=== PATIENT | female | born 1940 | race Caucasian/White ===

== ENCOUNTER → 2018-03-15 15:07 | Outpatient (BNVA) | payer MEDICARE, BC, SELFPAY | PROVIDERS: PCP Family Medicine; Visit Provider Nurse Practitioner Family | DX: I25.10 Atherosclerotic heart disease of native coronary artery without angina pectoris (principal); I25.2 Old myocardial infarction; Z79.01 Long term (current) use of anticoagulants; I10 Essential (primary) hypertension; I49.5 Sick sinus syndrome; Z45.018 Encounter for adjustment and management of other part of cardiac pacemaker; E11.9 Type 2 diabetes mellitus without complications; I48.0 Paroxysmal atrial fibrillation | CPT/HCPCS: 93288; 99213 ==

== ENCOUNTER 2018-03-17 12:40 | Outpatient (CLI) | payer MEDICARE, BC, OTHER, SELFPAY ==
--- NOTE | 2018-03-17 12:42 | DI.RAD_ITS ---
SYMPTOMS/DIAGNOSIS: NEW MID BACK PAIN, LOCATED LOW T SPINE LT THORACIC SPINE: Comparison is made with chest x-ray dated [id number]. There is slight compression of the T 11 vertebral body which does not appear changed when compared with the previous chest x-ray and also appears stable when compared with a chest CT dated [id number]. No new compression fractures are seen. There are minimal endplate osteophytes. A pacemaker and sternal wires are noted. The visualized portions of the lungs appear clear. IMPRESSION: Stable minimal compression fracture of the superior endplate of T 11.
== END 2018-03-17 13:00 ==
PROVIDERS: PCP Family Medicine; Visit Provider Family Medicine
DX: M54.6 Pain in thoracic spine (principal); M48.54XD Collapsed vertebra, not elsewhere classified, thoracic region, subsequent encounter for fracture with routine healing; M25.78 Osteophyte, vertebrae
CPT/HCPCS: 72072

== ENCOUNTER 2018-04-14 15:04 | Outpatient (REF) | payer MEDICARE, BC, SELFPAY ==
[2018-04-19 00:48] LABS: O-desmethyltramadol 9410 ng/mL (Cutoff:25); Tramadol 4271 ng/mL (Cutoff:25)
== END 2018-04-14 15:24 ==
LOC: LBN 15:04
PROVIDERS: PCP Family Medicine; Visit Provider Nurse Practitioner Family
DX: N39.0 Urinary tract infection, site not specified (principal); R82.5 Elevated urine levels of drugs, medicaments and biological substances
CPT/HCPCS: 80373; 87077; 87086; 87186

== ENCOUNTER 2018-05-24 22:48 | Observation (INO) | payer MEDICARE, BC, SELFPAY ==
[2018-05-24] VITALS (7 sets, daily range): BP systolic 126–222; BP diastolic 76–99; PULSE 75–94; RESP 13–21; TEMP 36.8; O2SAT 99–100
--- NOTE | 2018-05-24 22:56 | W.ED.GENAD ---
Discharge Plan Disposition Patient Disposition: [facility] INPATIENT Condition: Good Discharge Details Chief Complaint: RespSymp Clinical Impression: Anxiety, Chest pain Reason For Visit: CHEST PAIN Admit Date/Time: 05/25/18 02:51 Admit Provider: Cristofer Rosenberg Attending Provider: Cristofer Rosenberg Primary Care Provider: Familia Mazariegos ED Provider: Ronna Bello Discharge Data Discharge Date/Time-TO BE ENTERED AT DEPARTURE: 05/25/18 03:36 Medical Decision Making <EARLE Chamorro - Last Filed: 05/25/18 16:12> Patient is a 78-year-old female, brought in via EMS, with chief complaint of chest discomfort. Patient has history of atrial fibrillation, depression, insulin-dependent diabetes, hypertension, hyperlipidemia, essential tremor, WI, stage III CK, tachybradycardia syndrome, GERD, nonalcoholic liver disease, atherosclerosis, neuropathy. Patient is status post CABG, [place], hysterectomy. Patient has implanted pacemaker. She reports the past 3 days she has had upper respiratory symptoms including cough and sore throat. Reports her was recently ill with similar symptoms. She reports that recently she began developing pleuritic chest discomfort, pain particular with inspiration and cough. States taht this pain is different than when she has had cardiac events historically. Is currently endorsing SOB. She is 100% on RA, HR in the 80s. She reports she has had low grade fever at home, currently afebrile. Denies back pain. Denies substernal CP. BP elevated 180s/80s. Patient is anticoagulated on Eliquis. Typically takes metoprolol, losartan but reports that she did not take any of her medications this morning as she awoke feeling ill. typically helps with her daily medication management. Patient is not tachycardic, she is not hypoxic. No calf tenderness, she is anticoagulated. Have very low suspicion for PE at this time, do not feel that testing for this is appropriate at this time. On exam, patient does appear slightly shaky which she reports is typical and associates with her anxiety. Her lungs are clear on exam, she is in NSR at this time. No LE edema. Patient is prescribed Gabapentin which she takes BID for her tremor and chronic pain. Patient is requesting her typical pain medication for her chronic back pain. States she also takes Tramadol nightly. Will give her her nightly dose of Tramadol, Eliquiis and Gabapentin. As she has her Eliquis and Gabapentin here, we will give her her own medication. Patient has had multiple UTIs recently, will obtian UA. EKG reviewed by Dr. Durham, patient is currently in NSR. T wave depressions are noted but appear unchanged from previous. CXR reviewed by radiologist. They advised lungs are unremarkable with no consolidation, no pleural effusion. No pneumothorax. No cardiomegaly. Median sternotomy and ICD placement noted. Overall, they advise no acute findings. Oral temperature shows low grade fever of 99*F, nursing staff concerned that patient feels warm. Will give oral Tylenol. Patient's daughter is now present. Discussed lab results with the patient and her family. Daughter and patient feel that much of this was anxiety driven. She typically takes Lorazepam for her anxiety PRN. They report her is also ill with similar symptoms. She began having lateral chest wall pain with inspiration and cough this evening. With her cardiac history, patient reports her anxiety greatly spiked, she assessed her BP and noted it to be quite elevated. At this time, BP is 126/79. She appears much more calm and reports that her symptoms have resolved. At this point, she reprts that hte pain she experienced is not like the cardiac pain she has experienced historically. However, she is also describing an impending sense of doom from earlier tonight when she first noted the pain. While this pain does sound to be pleuritic and she is endorsing other symptoms of a URI, I feel that 3 hour Troponin is appropriate, especially given the patient's history. At the end of my shift, repeat Troponin is pending, care was transitioned to Dr. Durham. <Michael Durham DO - Last Filed: 05/25/18 02:50> Case was signed out to me by my colleague Ronna Carvajal. We are pending a second troponin. Repeat troponin is increased from prior troponin. New troponin is still within normal limits but has increased towards the upper limits of normal. I did go and reassess the patient myself, she does state that she has no chest pain whatsoever right now but she does feel slightly short of breath. She states that her current pain that she had earlier today may have been exertional, and additionally she feels that it was slightly different in nature from her normal anxiety related chest pain. Her CABG was over 20 years ago, she denies any recent stents, and her daughter who is at bedside also denies any stents. It is unknown as to when her last stress test was but they feel that he was at least 2-3 years ago. Because of the atypical nature of the patient's symptoms, and the increasing troponin I feel that it is appropriate for admission, serial troponins, and reevaluation. We will contact the hospitalist and discussed the case with them. I discussed the case with Dr. Briscoe, he agrees with the assessment and plan. [facility]. I have extensively reviewed the treatment plan with the patient. I have addressed all patient concerns at this time. I have also discussed the plan with the admitting physician and they agree with the current assessment and plan and have agreed to assume responsibility for the patient. All parties demonstrate verbal understanding and agreement with our assessment and plan at this time. ECG Data Interpretation: EKG 22: 50 Rate 84, intervals normal, his rhythm, no ST elevations, Q waves in lead III. Inverted T wave in V4 V5 and V6, however these findings are consistent with prior EKG from 08/08/17 HPI <EARLE Chamorro - Last Filed: 05/25/18 16:12> General Mode of arrival: EMS. Date/Time Provider Initiated Documentation: 05/24/18 22:54. Limitations to Documentation: no limitations. Information obtained by: patient. History of Present Illness 78 year old F presents to the emergency department with the chief complaint of chest pain, cough, described as moderate, Quality is described as aching (with inspiration), and is localized to the chest. Patient reports no radiation. Patient started experiencing this day(s) (3) and it has been constant. Immobilization improves symptom(s), Patient notes chest pain, cough, fever/chills and shortness of breath; denies headaches, loss of appetite, nausea/vomiting, rash and syncope. Patient did receive the following treatments prior to arrival, none Related Data Home Medications Medication Instructions Recorded Confirmed fexofenadine [Aller-ease] 90 mg PO DAILY PRN 08/25/15 05/25/18 acetaminophen [Tylenol] 650 mg PO Q4H PRN PRN #0 tab 01/15/16 05/25/18 cyanocobalamin (vitamin B-12) 1,000 mcg PO DAILY #90 tab-cap 02/10/16 05/25/18 cholecalciferol (vitamin D3) 1,000 unit PO BID cap 10/05/16 05/25/18 [Vitamin D3] magnesium oxide 400 mg PO DAILY #250 tab-cap 11/09/16 05/25/18 nitroglycerin [Nitrostat] 0.4 mg SUBLINGUAL Q5 MIN PRN X3 11/09/16 05/24/18 PRN #25 tab.sl insulin aspart U-100 100 unit/mL 21 unit SUB-Q BID #2 ml 07/30/17 05/25/18 subcutaneous pen lamotrigine [Lamictal] 100 mg PO BID #180 tab-cap 07/30/17 05/25/18 metoprolol succinate 150 mg PO DAILY #135 tab 07/30/17 05/25/18 apixaban [Eliquis] 5 mg PO BID 14 Days #28 tab 08/06/17 05/25/18 aspirin [Aspirin Low-Strength] 81 mg PO DAILY 08/08/17 05/25/18 lancets [Freestyle Lancets] #150 ea 11/19/17 05/12/18 trazodone 50 mg PO HS 10 Days #10 tab-cap 03/04/18 05/25/18 lorazepam 0.5 mg tablet 0.5 mg PO BID #56 tab MDD 1 mg 03/17/18 05/25/18 gabapentin 300 mg capsule 300 mg PO as directed #15 cap MDD 03/28/18 05/25/18 900 losartan 25 mg tablet 25 mg PO BID 90 Days #180 tab-cap 03/31/18 05/25/18 blood-glucose meter kit #1 each 04/13/18 05/12/18 lidocaine 5 % topical patch 1 patch TP DAILY #15 each 04/14/18 05/25/18 blood sugar diagnostic strips #120 strip 05/03/18 05/12/18 insulin detemir (U-100) 100 21 unit SUBCUT BID #4 ml 05/03/18 05/25/18 unit/mL (3 mL) subcutaneous pen pen needle, diabetic 31 gauge x #100 ndl 05/03/18 05/12/1811/24 tramadol 50 mg tablet 50 mg PO BID PRN #60 tab 05/12/18 05/24/18 Previous Rx's Medication Instructions Recorded acetaminophen [Tylenol] 650 mg PO Q4H PRN PRN #0 tab 01/15/16 insulin aspart U-100 100 unit/mL 21 unit SUB-Q BID #2 ml 07/30/17 subcutaneous pen lamotrigine [Lamictal] 100 mg PO BID #180 tab-cap 07/30/17 metoprolol succinate 150 mg PO DAILY #135 tab 07/30/17 apixaban [Eliquis] 5 mg PO BID 14 Days #28 tab 08/06/17 lancets [Freestyle Lancets] #150 ea 11/19/17 trazodone 50 mg PO HS 10 Days #10 tab-cap 03/04/18 lorazepam 0.5 mg tablet 0.5 mg PO BID #56 tab MDD 1 mg 03/17/18 gabapentin 300 mg capsule 300 mg PO as directed #15 cap MDD 03/28/18 900 losartan 25 mg tablet 25 mg PO BID 90 Days #180 tab-cap 03/31/18 blood-glucose meter kit #1 each 04/13/18 lidocaine 5 % topical patch 1 patch TP DAILY #15 each 04/14/18 blood sugar diagnostic strips #120 strip 05/03/18 insulin detemir (U-100) 100 21 unit SUBCUT BID #4 ml 05/03/18 unit/mL (3 mL) subcutaneous pen pen needle, diabetic 31 gauge x #100 ndl 05/03/1811/24 tramadol 50 mg tablet 50 mg PO BID PRN #60 tab 05/12/18 Allergies Allergy/AdvReac Type Severity Reaction Status Date / Time nifedipine Allergy Mild Hives Verified 05/25/18 03:26 amiodarone AdvReac Severe tremor Verified 05/25/18 03:26 oxycodone AdvReac Severe heavy Verified 05/25/18 03:26 sedation amoxicillin AdvReac Intermediate sore Verified 05/25/18 03:26 burning mouth Anesthetics - Amide Type AdvReac Intermediate anxious Verified 05/25/18 03:26 diazepam AdvReac Intermediate Agitation Verified 05/25/18 03:26 indomethacin AdvReac Intermediate headache, Verified 05/25/18 03:26 flush metformin AdvReac Intermediate Diarrhea Verified 05/25/18 03:26 General Stated Complaint: RespSymp ANASTACIA: 3 Review of Systems <Ronna Piburn, PA - Last Filed: 05/25/18 16:12> Constitutional Reports as per HPI, Denies chills, Denies fever(s) and Denies headache(s) Eyes Denies eye discharge ENT Reports dysphagia, Denies vertigo, Denies otalgia, Denies facial pain, Denies headache(s), Denies sinus pain, Denies sinus pressure, Reports sore throat and Denies throat swelling Cardiovascular Reports as per HPI, Reports chest pain (diffuse discomfort with inspiration), Denies syncope, Denies palpitations and Reports dyspnea Respiratory Reports as per HPI, Reports chest congestion, Reports cough, Denies hemoptysis, Reports dyspnea, Denies stridor and Denies wheezing Gastrointestinal Reports as per HPI, Denies abdominal pain, Reports dysphagia, Denies nausea and Denies vomiting Genitourinary Denies system reviewed and no additional complaints, except as docu (has had multiple UTIs recently, denies dysurea, increased frequency or urgency at this time), Denies urinary frequency, Denies flank pain and Denies urinary incontinence Musculoskeletal Reports back pain (endorses chronic back pain, states this is unchanged) Integumentary/Breasts Denies rash Neurologic Reports as per HPI, Denies vertigo, Denies syncope and Denies headache(s) Endocrine Denies palpitations Allergic/Immunologic Denies throat swelling and Denies wheezing Exam <EARLE Chamorro - Last Filed: 05/25/18 16:12> Const General: cooperative, healthy appearing, no acute distress, well developed and well groomed Nutritional Appearance: average body habitus and well nourished Orientation: alert and awake [facility] Head: normal to inspection, normocephalic and atraumatic Ears: hearing grossly normal bilaterally, external ears normal and TM's normal bilaterally General nose exam: external nose normal Face and sinus: normal facial exam, sinuses nontender and face symmetric Mouth: oral mucosae normal, lip normal, tongue normal, oropharynx normal, mucous membranes dry (patietn appears slightly dry on exam), no muffled voice and no trismus Throat: posterior oropharynx abnormal (posterior oropharynx is mildly erythematous, no swelling, exudate), tonsils normal and uvula midline Eyes General: appearance normal, both eyes and all related structures Neck Neck: normal visual inspection, full ROM, no lymphadenopathy, no meningeal signs, trachea midline and supple Resp Effort & Inspection: normal respiratory effort, able to speak in complete sentences and no respiratory distress Auscultation: clear to auscultation bilaterally, no rales, no rhonchi and no wheezes Cardio Rate: regular rate Rhythm: regular rhythm Heart Sounds: S1 normal and S2 normal GI Inspection: normal to inspection Palpation: soft, no hepatosplenomegaly, no guarding, not rigid and nontender Auscultation: normal bowel sounds Back/Spine/Pelvis Back: no CVA tenderness Skin General skin exam: no rashes or lesions noted Trauma: no lacerations or abrasions Neuro General: alert, awake and oriented x3 Cognition: normal cognition Speech: speech normal Gait: gait abnormal (patietn brought in via EMS, have not seen her ambulate) Extrem General: no pedal edema, no calf tenderness and normal gait Psych Appearance: grossly normal and well kempt Mental Status: mental status grossly normal Speech and Movement: speech and movement normal Course <EARLE Chamorro - Last Filed: 05/25/18 16:12> Vital Signs Temperature 36.8 C 05/24/18 22:50 Pulse 94 H 05/24/18 22:50 Respiratory Rate 13 05/24/18 22:50 Blood Pressure 222/99 H 05/24/18 22:50 Pulse Oximetry 100 05/24/18 22:50 Temperature 36.8 C 05/24/18 22:50 Temperature Source Skin 05/24/18 22:50 Pulse 94 H 05/24/18 22:50 Respiratory Rate 13 05/24/18 22:50 Blood Pressure 222/99 H 05/24/18 22:50 Blood Pressure Position Sitting 05/24/18 22:50 Pulse Oximetry 100 05/24/18 22:50 Oxygen Delivery Method Room Air 05/24/18 22:50 Oxygen Flow Rate 0 05/24/18 22:50
--- NOTE | 2018-05-24 23:01 | ED.GENADUL_ITS ---
Discharge Plan Disposition Patient Disposition: [facility] INPATIENT Condition: Good Discharge Details Chief Complaint: RespSymp Clinical Impression: Anxiety, Chest pain Reason For Visit: CHEST PAIN Admit Date/Time: 05/25/18 02:51 Admit Provider: Cristofer Rosenberg Attending Provider: Cristofer Rosenberg Primary Care Provider: Familia Mazariegos ED Provider: Ronna Bello Discharge Data Discharge Date/Time-TO BE ENTERED AT DEPARTURE: 05/25/18 03:36 Medical Decision Making <EARLE Chamorro - Last Filed: 05/25/18 16:12> Patient is a 78-year-old female, brought in via EMS, with chief complaint of chest discomfort. Patient has history of atrial fibrillation, depression, insulin-dependent diabetes, hypertension, hyperlipidemia, essential tremor, NE, stage III CK, tachybradycardia syndrome, GERD, nonalcoholic liver disease, atherosclerosis, neuropathy. Patient is status post CABG, [place], hysterectomy. Patient has implanted pacemaker. She reports the past 3 days she has had upper respiratory symptoms including cough and sore throat. Reports her was recently ill with similar symptoms. She reports that recently she began developing pleuritic chest discomfort, pain particular with inspiration and cough. States taht this pain is different than when she has had cardiac events historically. Is currently endorsing SOB. She is 100% on RA , HR in the 80s. She reports she has had low grade fever at home, currently afebrile. Denies back pain. Denies substernal CP. BP elevated 180s/80s. Patient is anticoagulated on Eliquis. Typically takes metoprolol, losartan but reports that she did not take any of her medications this morning as she awoke feeling ill. typically helps with her daily medication management. Patient is not tachycardic, she is not hypoxic. No calf tenderness, she is anticoagulated. Have very low suspicion for PE at this time, do not feel that testing for this is appropriate at this time. On exam, patient does appear slightly shaky which she reports is typical and associates with her anxiety. Her lungs are clear on exam, she is in NSR at this time. No LE edema. Patient is prescribed Gabapentin which she takes BID for her tremor and chronic pain. Patient is requesting her typical pain medication for her chronic back pain. States she also takes Tramadol nightly. Will give her her nightly dose of Tramadol, Eliquiis and Gabapentin. As she has her Eliquis and Gabapentin here, we will give her her own medication. Patient has had multiple UTIs recently, will obtian UA. EKG reviewed by Dr. Durham, patient is currently in NSR. T wave depressions are noted but appear unchanged from previous. CXR reviewed by radiologist. They advised lungs are unremarkable with no consolidation, no pleural effusion. No pneumothorax. No cardiomegaly. Median sternotomy and ICD placement noted. Overall, they advise no acute findings. Oral temperature shows low grade fever of 99*F, nursing staff concerned that patient feels warm. Will give oral Tylenol. Patient's daughter is now present. Discussed lab results with the patient and her family. Daughter and patient feel that much of this was anxiety driven. She typically takes Lorazepam for her anxiety PRN. They report her is also ill with similar symptoms. She began having lateral chest wall pain with inspiration and cough this evening. With her cardiac history, patient reports her anxiety greatly spiked, she assessed her BP and noted it to be quite elevated. At this time, BP is 126/79. She appears much more calm and reports that her symptoms have resolved. At this point, she reprts that hte pain she experienced is not like the cardiac pain she has experienced historically. However, she is also describing an impending sense of doom from earlier tonight when she first noted the pain. While this pain does sound to be pleuritic and she is endorsing other symptoms of a URI, I feel that 3 hour Troponin is appropriate, especially given the patient's history. At the end of my shift, repeat Troponin is pending, care was transitioned to Dr. Durham. <Michael Durham DO - Last Filed: 05/25/18 02:50> Case was signed out to me by my colleague Ronna Carvajal. We are pending a second troponin. Repeat troponin is increased from prior troponin. New troponin is still within normal limits but has increased towards the upper limits of normal. I did go and reassess the patient myself, she does state that she has no chest pain whatsoever right now but she does feel slightly short of breath. She states that her current pain that she had earlier today may have been exertional, and additionally she feels that it was slightly different in nature from her normal anxiety related chest pain. Her CABG was over 20 years ago, she denies any recent stents, and her daughter who is at bedside also denies any stents. It is unknown as to when her last stress test was but they feel that he was at least 2-3 years ago. Because of the atypical nature of the patient's symptoms, and the increasing troponin I feel that it is appropriate for admission, serial troponins, and reevaluation. We will contact the hospitalist and discussed the case with them. I discussed the case with Dr. Briscoe, he agrees with the assessment and plan. The patient [facility] be [facility] for [facility] troponins. I have extensively reviewed the treatment plan with the patient. I have addressed all patient concerns at this time. I have also discussed the plan with the admitting physician and they agree with the current assessment and plan and have agreed to assume responsibility for the patient. All parties demonstrate verbal understanding and agreement with our assessment and plan at this time. ECG Data Interpretation: EKG 22: 50 Rate 84, intervals normal, his rhythm, no ST elevations, Q waves in lead III. Inverted T wave in V4 V5 and V6, however these findings are consistent with prior EKG from 08/08/17 HPI <EARLE Chamorro - Last Filed: 05/25/18 16:12> General Mode of arrival: EMS . Date/Time Provider Initiated Documentation: 05/24/18 22:54 . Limitations to Documentation: no limitations . Information obtained by: patient . History of Present Illness 78 year old F presents to the emergency department with the chief complaint of chest pain, cough, described as moderate, Quality is described as aching ( with inspiration), and is localized to the chest. Patient reports no radiation. Patient started experiencing this day(s) (3) and it has been constant. Immobilization improves symptom(s), Patient notes chest pain, cough, fever/chills and shortness of breath; denies headaches, loss of appetite , nausea/vomiting, rash and syncope. Patient did receive the following treatments prior to arrival, none Related Data Home Medications Medication Instructions Recorded Confirmed fexofenadine [Aller-ease] 90 mg PO DAILY PRN 08/25/15 05/25/18 acetaminophen [Tylenol] 650 mg PO Q4H PRN PRN #0 tab 01/15/16 05/25/18 cyanocobalamin (vitamin B-12) 1,000 mcg PO DAILY #90 tab-cap 02/10/16 05/25/18 cholecalciferol (vitamin D3) 1,000 unit PO BID cap 10/05/16 05/25/18 [Vitamin D3] magnesium oxide 400 mg PO DAILY #250 tab-cap 11/09/16 05/25/18 nitroglycerin [Nitrostat] 0.4 mg SUBLINGUAL Q5 MIN PRN X3 11/09/16 05/24/18 PRN #25 tab.sl insulin aspart U-100 100 unit/mL 21 unit SUB-Q BID #2 ml 07/30/17 05/25/18 subcutaneous pen lamotrigine [Lamictal] 100 mg PO BID #180 tab-cap 07/30/17 05/25/18 metoprolol succinate 150 mg PO DAILY #135 tab 07/30/17 05/25/18 apixaban [Eliquis] 5 mg PO BID 14 Days #28 tab 08/06/17 05/25/18 aspirin [Aspirin Low-Strength] 81 mg PO DAILY 08/08/17 05/25/18 lancets [Freestyle Lancets] #150 ea 11/19/17 05/12/18 trazodone 50 mg PO HS 10 Days #10 tab-cap 03/04/18 05/25/18 lorazepam 0.5 mg tablet 0.5 mg PO BID #56 tab MDD 1 mg 03/17/18 05/25/18 gabapentin 300 mg capsule 300 mg PO as directed #15 cap MDD 03/28/18 05/25/18 900 losartan 25 mg tablet 25 mg PO BID 90 Days #180 tab-cap 03/31/18 05/25/18 blood-glucose meter kit #1 each 04/13/18 05/12/18 lidocaine 5 % topical patch 1 patch TP DAILY #15 each 04/14/18 05/25/18 blood sugar diagnostic strips #120 strip 05/03/18 05/12/18 insulin detemir (U-100) 100 21 unit SUBCUT BID #4 ml 05/03/18 05/25/18 unit/mL (3 mL) subcutaneous pen pen needle, diabetic 31 gauge x #100 ndl 05/03/18 05/12/1811/24 tramadol 50 mg tablet 50 mg PO BID PRN #60 tab 05/12/18 05/24/18 Previous Rx's Medication Instructions Recorded acetaminophen [Tylenol] 650 mg PO Q4H PRN PRN #0 tab 01/15/16 insulin aspart U-100 100 unit/mL 21 unit SUB-Q BID #2 ml 07/30/17 subcutaneous pen lamotrigine [Lamictal] 100 mg PO BID #180 tab-cap 07/30/17 metoprolol succinate 150 mg PO DAILY #135 tab 07/30/17 apixaban [Eliquis] 5 mg PO BID 14 Days #28 tab 08/06/17 lancets [Freestyle Lancets] #150 ea 11/19/17 trazodone 50 mg PO HS 10 Days #10 tab-cap 03/04/18 lorazepam 0.5 mg tablet 0.5 mg PO BID #56 tab MDD 1 mg 03/17/18 gabapentin 300 mg capsule 300 mg PO as directed #15 cap MDD 03/28/18 900 losartan 25 mg tablet 25 mg PO BID 90 Days #180 tab-cap 03/31/18 blood-glucose meter kit #1 each 04/13/18 lidocaine 5 % topical patch 1 patch TP DAILY #15 each 04/14/18 blood sugar diagnostic strips #120 strip 05/03/18 insulin detemir (U-100) 100 21 unit SUBCUT BID #4 ml 05/03/18 unit/mL (3 mL) subcutaneous pen pen needle, diabetic 31 gauge x #100 ndl 05/03/1811/24 tramadol 50 mg tablet 50 mg PO BID PRN #60 tab 05/12/18 Allergies Allergy/AdvReac Type Severity Reaction Status Date / Time nifedipine Allergy Mild Hives Verified 05/25/18 03:26 amiodarone AdvReac Severe tremor Verified 05/25/18 03:26 oxycodone AdvReac Severe heavy Verified 05/25/18 03:26 sedation amoxicillin AdvReac Intermediate sore Verified 05/25/18 03:26 burning mouth Anesthetics - Amide Type AdvReac Intermediate anxious Verified 05/25/18 03:26 diazepam AdvReac Intermediate Agitation Verified 05/25/18 03:26 indomethacin AdvReac Intermediate headache, Verified 05/25/18 03:26 flush metformin AdvReac Intermediate Diarrhea Verified 05/25/18 03:26 General Stated Complaint: RespSymp ANASTACIA: 3 Review of Systems <Ronna Piburn, PA - Last Filed: 05/25/18 16:12> Constitutional Reports as per HPI, Denies chills, Denies fever(s) and Denies headache(s) Eyes Denies eye discharge ENT Reports dysphagia, Denies vertigo, Denies otalgia, Denies facial pain, Denies headache(s), Denies sinus pain, Denies sinus pressure, Reports sore throat and Denies throat swelling Cardiovascular Reports as per HPI, Reports chest pain (diffuse discomfort with inspiration), Denies syncope, Denies palpitations and Reports dyspnea Respiratory Reports as per HPI, Reports chest congestion, Reports cough, Denies hemoptysis, Reports dyspnea, Denies stridor and Denies wheezing Gastrointestinal Reports as per HPI, Denies abdominal pain, Reports dysphagia, Denies nausea and Denies vomiting Genitourinary Denies system reviewed and no additional complaints, except as docu (has had multiple UTIs recently, denies dysurea, increased frequency or urgency at this time), Denies urinary frequency, Denies flank pain and Denies urinary incontinence Musculoskeletal Reports back pain (endorses chronic back pain, states this is unchanged) Integumentary/Breasts Denies rash Neurologic Reports as per HPI, Denies vertigo, Denies syncope and Denies headache(s) Endocrine Denies palpitations Allergic/Immunologic Denies throat swelling and Denies wheezing Exam <EARLE Chamorro - Last Filed: 05/25/18 16:12> Const General: cooperative, healthy appearing, no acute distress, well developed and well groomed Nutritional Appearance: average body habitus and well nourished Orientation: alert and awake [facility] Head: normal to inspection, normocephalic and atraumatic Ears: hearing grossly normal bilaterally, external ears normal and TM's normal bilaterally General nose exam: external nose normal Face and sinus: normal facial exam, sinuses nontender and face symmetric Mouth: oral mucosae normal, lip normal, tongue normal, oropharynx normal, mucous membranes dry (patietn appears slightly dry on exam), no muffled voice and no trismus Throat: posterior oropharynx abnormal (posterior oropharynx is mildly erythematous, no swelling, exudate), tonsils normal and uvula midline Eyes General: appearance normal, both eyes and all related structures Neck Neck: normal visual inspection, full ROM, no lymphadenopathy, no meningeal signs , trachea midline and supple Resp Effort & Inspection: normal respiratory effort, able to speak in complete sentences and no respiratory distress Auscultation: clear to auscultation bilaterally, no rales, no rhonchi and no wheezes Cardio Rate: regular rate Rhythm: regular rhythm Heart Sounds: S1 normal and S2 normal GI Inspection: normal to inspection Palpation: soft, no hepatosplenomegaly, no guarding, not rigid and nontender Auscultation: normal bowel sounds Back/Spine/Pelvis Back: no CVA tenderness Skin General skin exam: no rashes or lesions noted Trauma: no lacerations or abrasions Neuro General: alert, awake and oriented x3 Cognition: normal cognition Speech: speech normal Gait: gait abnormal (patietn brought in via EMS, have not seen her ambulate) Extrem General: no pedal edema, no calf tenderness and normal gait Psych Appearance: grossly normal and well kempt Mental Status: mental status grossly normal Speech and Movement: speech and movement normal Course <EARLE Chamorro - Last Filed: 05/25/18 16:12> Vital Signs Temperature 36.8 C 05/24/18 22:50 Pulse 94 H 05/24/18 22:50 Respiratory Rate 13 05/24/18 22:50 Blood Pressure 222/99 H 05/24/18 22:50 Pulse Oximetry 100 05/24/18 22:50 Temperature 36.8 C 05/24/18 22:50 Temperature Source Skin 05/24/18 22:50 Pulse 94 H 05/24/18 22:50 Respiratory Rate 13 05/24/18 22:50 Blood Pressure 222/99 H 05/24/18 22:50 Blood Pressure Position Sitting 05/24/18 22:50 Pulse Oximetry 100 05/24/18 22:50 Oxygen Delivery Method Room Air 05/24/18 22:50 Oxygen Flow Rate 0 05/24/18 22:50
[2018-05-24 23:15] LABS: Abs Immature Grans 0.01 k/cumm (0.0-0.09); Absolute Basophil Count 0.01 k/cumm (0.0-0.2); Absolute Eosinophil Count 0.06 k/cumm (0.0-0.7); Absolute Lymphocyte Count 1.52 k/cumm (1.2-3.4); Absolute Monocyte Count 0.77 k/cumm (0.11-0.7); Absolute Neutrophil Count 5.94 k/cumm (1.2-6.7); Basophils % 0.1; Eosinophils % 0.7; HCT 39.1 % (36.0-46.0); HGB 13.4 g/dL (12.0-15.5); Immature Grans % 0.1; Lymphocytes % 18.3; Mean Corp. HGB Concentration 34.3 g/dL (32.0-36.0); Mean Corpuscular Hemoglobin 32.6 pg (27.0-33.0); Mean Corpuscular Volume 95.1 fL (80-95); Mean Platelet Volume 9.4 fL (8.0-11.0); Monocytes % 9.3; Neutrophils % 71.5; Platelet Count 133 x1000/uL (130-400); RBC 4.11 m/cumm (4.00-5.20); RBC Distribution Width 12.5 % (11.7-14.6); White Blood Cell Count 8.31 k/cumm (4.4-10.8)
[2018-05-24 23:26] LABS: ALT 22 U/L (12-78); AST 20 U/L (15-37); Albumin 4.2 g/dL (3.4-5.0); Alkaline Phosphatase 71 U/L (46-116); Anion Gap 13.1 mmol/L (3-11); BUN 17 mg/dL (7-18); CO2 25.9 mmol/L (21.0-32.0); CREATININE 0.93 mg/dL (0.55-1.02); Calcium 10.9 mg/dL (8.5-10.1); Chloride 100 mmol/L (98-107); Estimated GFR 58.61 (mL/min/1.73m2); Glucose 136 mg/dL (70-100); Magnesium 1.6 mg/dL (1.8-2.4); Potassium 3.5 mmol/L (3.5-5.1); Sodium 139 mmol/L (136-145); Total Protein 8.7 g/dL (6.4-8.2)
--- NOTE | 2018-05-24 23:30 | DI.RAD_ITS ---
SYMPTOMS/DIAGNOSIS: PLEURITIC CHEST PAIN, CONFUSED PA AND LATERAL CHEST: The heart is mildly enlarged. Note is made of prior sternotomy and there is a transvenous cardiac pacemaker in position. The lungs are clear. No pleural effusions seen. CONCLUSION: No evidence of acute disease.
[2018-05-24 23:31] LABS: Troponin I < 0.02 ng/mL (0.00-0.06)
[2018-05-24 23:38] LABS: PTT Activated 22.9 sec (21.0-31.4); Prothrombin Time 9.8 sec (9.3-10.8)
--- NOTE | 2018-05-24 23:41 | DI.VRAD_ITS ---
EXAM: XR Chest, 2 Views EXAM DATE/TIME: 05/24/2018 10:56 PM CLINICAL HISTORY: 78 years old, female; Signs and symptoms; Other: Pleuritic chest pain TECHNIQUE: XR of the chest, 2 views. COMPARISON: CR CHEST 2 VIEWS PA,LAT 10/19/2017 3:07 PM FINDINGS: Lungs: Unremarkable. No consolidation. Pleural space: Unremarkable. No pleural effusion. No pneumothorax. Heart/Mediastinum: Unremarkable. No cardiomegaly. Bones/joints: Median sternotomy. Other findings: ICD. IMPRESSION: No acute findings. Dictated and Authenticated by: Gabo Seals MD. Ordering:KECIA BRUNNER MD
[2018-05-24] MEDS: traMADol 50 MG TAB PO (23:48)
[2018-05-24 23:49] LABS: Bilirubin Negative (Negative); Blood Negative (Negative); Clarity Clear; Glucose Negative (Negative); Ketones 40 mg/dL (Negative); Leukocyte Esterase Negative (Negative); Nitrite Negative (Negative); Urobilinogen 0.2 EU/dL (Up TO 0.2); pH 8.5 (5-8)
[2018-05-24] MEDS: Acetaminophen 325 MG TAB 650 MG PO (23:50)
[2018-05-24] MEDS: Normal Saline 1,000 ML 125 ML IV (23:53)
[2018-05-24] MEDS: Normal Saline Flush 10 ML SYR IVP (23:53)
[2018-05-24 23:56] LABS: Bacteria Negative HPF (Negative); C & S Indicated? No; Casts Negative LPF (Negative); Crystals Negative HPF (Negative); Epithelial Cells Rare HPF (Negative); Mucus Negative (Negative); RBC Negative (0-2); WBC 0-2 HPF (0-5)
[2018-05-25] VITALS (40 sets, daily range): BP systolic 124–197; BP diastolic 65–98; PULSE 61–102; RESP 14–27; TEMP 37.1–38; O2SAT 95–100
--- NOTE | 2018-05-25 00:12 | NUR.NOTE ---
Nursing Note: Pt presents to the Emergency Room with a large plastic bag of medications- medications were compared to the med rec and confirmed. Pt unable to recall the last time she took these medications I dont know, I know I slept in this morning because I didn't feel good. Daughter is at the bedside who is also unsure of last time pt took any medications. usually helps administer medications but per daughter he is also not well this evening.
[2018-05-25 02:23] LABS: Troponin I 0.06 ng/mL (0.00-0.06)
[2018-05-25] MEDS: LORazepam 0.5 MG TAB PO ×3 (04:09→19:57)
[2018-05-25] MEDS: traZODone 50 MG TAB PO ×2 (04:10→20:21)
--- NOTE | 2018-05-25 04:46 | W.PM.HP.N ---
Date of service: 05/25/18 Time of Service: 04:47 Assessment and Plan (1) Atypical chest pain: Current visit: Yes Status: Acute This is a 78-year-old lady with known CAD with shortness of breath and chest pain which appears to be mostly pleuritic upon admission but is different than her usual anxiety discomfort she gets in her chest. She has had a recent URI but no evidence of overt pneumonia. She did have a slight increase in her second troponin while being observed in the emergency room and was pain-free in the emergency room. She will be observed with trending troponins and telemetry to assure she is not having a recurrence of her angina pectoris or non-STEMI. Presently she appears to be nonischemic by EKG and comfortable. She is a full code. (2) Coronary artery disease: Current visit: No Status: Chronic Patient's daughter did give a history of a recent stress test performed with these results not available. Patient does have a paced rhythm with atrial fibrillation and is on Eliquis. I will consult cardiology in the morning to review this patient's case. This call will need to be made by the daytime hospitalist. This could be deferred to outpatient consultation if the patient remains stable. Concerns are that she may have recurring occlusive disease with the stress of her recent URI uncovering her angina pectoris. She did have exertional symptoms. (3) URI (upper respiratory infection): Current visit: Yes Status: Acute No evidence of sequelae with tympanic membranes normal her ER visit documentation and the patient having no evidence of pneumonia or severe lower respiratory findings. She will have symptomatic care during hospital stay and this appears to be a problem that is self resolving. History of Present Illness Chief Complaint: Chest pain with shortness of breath and recent URI Narrative: Patient is a 78-year-old female, brought in via EMS, with chief complaint of chest discomfort. Patient has history of atrial fibrillation with paced rhythm having tachybradycardia syndrome and pacemaker, depression, insulin-dependent diabetes, hypertension, hyperlipidemia, essential tremor, NE, stage III CK, tachybradycardia syndrome, GERD, nonalcoholic liver disease, atherosclerosis, neuropathy. Patient is status post CABG, [place], hysterectomy as well as left total knee replacement. Patient has implanted pacemaker. She reports the past 3 days she has had upper respiratory symptoms including cough and sore throat. Reports her was recently ill with similar symptoms. She reports that recently she began developing pleuritic chest discomfort, pain particular with inspiration and cough. States that this pain is different than when she has had cardiac events historically. She is is currently endorsing SOB with exertion. She is 100% on RA, HR in the 80s. She reports she has had low grade fever at home, currently afebrile. Denies back pain. Denies substernal CP and has no radiation of pain. BP elevated 180s/80s but is now stable. Patient is anticoagulated on Eliquis. Typically takes metoprolol, losartan but reports that she did not take any of her medications this morning as she awoke feeling ill. typically helps with her daily medication management. Patient is not tachycardic, she is not hypoxic. No calf tenderness, she is anticoagulated. Have very low suspicion for PE at this time, do not feel that testing for this is appropriate at this time with no further testing. Patient denies any headaches, anorexia or nausea and vomiting and has had no bowel habit changes. She has no syncope only near syncope as she has had no rash. She is attended by her daughter at bedside prior to admission to the ER and her daughter had nothing more to offer per history. He did state that she is very anxious and had first thought her symptoms were mostly anxiety. Because of her elevation in her second troponin she was admitted for observation for continued trending of troponins and telemetry monitoring. While she is in the hospital she will be on insulin coverage without her usual basal insulin until we see how her glucometers are trending and whether her appetite and diet require less aggressive insulin therapy. She was not severely hypoglycemic upon admission. Review of Systems Review of Systems Constitutional Reports as per HPI, Denies chills, Denies fever(s) and Denies headache(s) Eyes Denies eye discharge ENT Reports dysphagia, Denies vertigo, Denies otalgia, Denies facial pain, Denies headache(s), Denies sinus pain, Denies sinus pressure, Reports sore throat and Denies throat swelling Cardiovascular Reports as per HPI, Reports chest pain (diffuse discomfort with inspiration), Denies syncope, Denies palpitations and Reports dyspnea Respiratory Reports as per HPI, Reports chest congestion, Reports cough, Denies hemoptysis, Reports dyspnea, Denies stridor and Denies wheezing Gastrointestinal Reports as per HPI, Denies abdominal pain, Reports dysphagia, Denies nausea and Denies vomiting Genitourinary Denies system reviewed and no additional complaints, except as documented (has had multiple UTIs recently, denies dysuria, increased frequency or urgency at this time), Denies urinary frequency, Denies flank pain and Denies urinary incontinence Musculoskeletal Reports back pain (endorses chronic back pain, states this is unchanged) Integumentary/Breasts Denies rash Neurologic Reports as per HPI, Denies vertigo, Denies syncope and Denies headache(s) Endocrine Denies palpitations Allergic/Immunologic Denies throat swelling and Denies wheezing Meds Home Medications Medication Instructions Recorded Confirmed Type fexofenadine [Aller-ease] 90 mg PO DAILY PRN 08/25/15 05/25/18 History acetaminophen [Tylenol] 650 mg PO Q4H PRN PRN #0 tab 01/15/16 05/25/18 Rx cyanocobalamin (vitamin B-12) 1,000 mcg PO DAILY #90 tab-cap 02/10/16 05/25/18 History cholecalciferol (vitamin D3) 1,000 unit PO BID cap 10/05/16 05/25/18 History [Vitamin D3] magnesium oxide 400 mg PO DAILY #250 tab-cap 11/09/16 05/25/18 History nitroglycerin [Nitrostat] 0.4 mg SUBLINGUAL Q5 MIN PRN X3 11/09/16 05/24/18 History PRN #25 tab.sl Med Offloader Brace u #1 12/29/16 05/12/18 Clinic Atorvastatin Calcium 10 mg PO DAILY #90 tab-cap 07/30/17 05/25/18 Clinic insulin aspart U-100 100 unit/mL 21 unit SUB-Q BID #2 ml 07/30/17 05/25/18 Rx subcutaneous pen lamotrigine [Lamictal] 100 mg PO BID #180 tab-cap 07/30/17 05/25/18 Rx metoprolol succinate 150 mg PO DAILY #135 tab 07/30/17 05/25/18 Rx apixaban [Eliquis] 5 mg PO BID 14 Days #28 tab 08/06/17 05/25/18 Rx aspirin [Aspirin Low-Strength] 81 mg PO DAILY 08/08/17 05/25/18 History lancets [Freestyle Lancets] #150 ea 11/19/17 05/12/18 Rx trazodone 50 mg PO HS 10 Days #10 tab-cap 03/04/18 05/25/18 Rx lorazepam 0.5 mg tablet 0.5 mg PO BID #56 tab MDD 1 mg 03/17/18 05/25/18 Rx gabapentin 300 mg capsule 300 mg PO as directed #15 cap MDD 03/28/18 05/25/18 Rx 900 losartan 25 mg tablet 25 mg PO BID 90 Days #180 tab-cap 03/31/18 05/25/18 Rx blood-glucose meter kit #1 each 04/13/18 05/12/18 Rx lidocaine 5 % topical patch 1 patch TP DAILY #15 each 04/14/18 05/25/18 Rx blood sugar diagnostic strips #120 strip 05/03/18 05/12/18 Rx insulin detemir (U-100) 100 21 unit SUBCUT BID #4 ml 05/03/18 05/25/18 Rx unit/mL (3 mL) subcutaneous pen pen needle, diabetic 31 gauge x #100 ndl 05/03/18 05/12/18 Rx 5/16 tramadol 50 mg tablet 50 mg PO BID PRN #60 tab 05/12/18 05/24/18 Rx Allergies Allergy/AdvReac Type Severity Reaction Status Date / Time nifedipine Allergy Mild Hives Verified 05/25/18 03:26 amiodarone AdvReac Severe tremor Verified 05/25/18 03:26 oxycodone AdvReac Severe heavy Verified 05/25/18 03:26 sedation amoxicillin AdvReac Intermediate sore Verified 05/25/18 03:26 burning mouth Anesthetics - Amide Type AdvReac Intermediate anxious Verified 05/25/18 03:26 diazepam AdvReac Intermediate Agitation Verified 05/25/18 03:26 indomethacin AdvReac Intermediate headache, Verified 05/25/18 03:26 flush metformin AdvReac Intermediate Diarrhea Verified 05/25/18 03:26 Exam Narrative Exam Narrative: Const General: cooperative, healthy appearing, no acute distress, well developed and well groomed Nutritional Appearance: average body habitus and well nourished but short stature with diffuse muscle atrophy and stooped posture Orientation: alert and awake, not oriented to time HEENT Head: normal to inspection, normocephalic and atraumatic Ears: hearing grossly normal bilaterally, external ears normal General nose exam: external nose normal Face and sinus: normal facial exam, sinuses nontender and face symmetric Mouth: oral mucosae normal, lip normal, tongue normal, oropharynx normal, mucous membranes dry (patient appears slightly dry on exam) Throat: posterior oropharynx abnormal (posterior oropharynx is mildly erythematous, no swelling, exudate), uvula midline Eyes General: appearance normal, both eyes and all related structures Neck Neck: normal visual inspection, full ROM, no lymphadenopathy, no meningeal signs, trachea midline and supple Resp Effort & Inspection: normal respiratory effort, able to speak in complete sentences and no respiratory distress Auscultation: clear to auscultation bilaterally with fair aeration, no rales, no rhonchi and no wheezes Cardio Rate: regular rate Rhythm: regular rhythm Heart Sounds: S1 normal and S2 normal, 3/6 systolic murmur over left sternal border, palpable pacemaker left upper chest subcutaneously GI Inspection: normal to inspection Palpation: soft, no hepatosplenomegaly, no guarding, not rigid and nontender Auscultation: normal bowel sounds Back/Spine/Pelvis Back: no CVA tenderness, patient is wearing adult diaper and pelvic and rectal exam deferred. Skin General skin exam: no rashes or lesions noted, warm and dry, pale Trauma: no lacerations or abrasions Neuro General: alert, awake and oriented x 2 Cognition: normal cognition except for slight decreased short-term memory loss and more confusion and overnight Speech: speech normal Gait: Wide-based and cautious Extrem General: no pedal edema, no calf tenderness, joints have fair range of motion, no cyanosis or clubbing Psych Appearance: grossly normal and well kempt Mental Status: mental status grossly normal except for slight confusion and overnight and some short-term memory loss, normal affect with normal variation Speech: speech normal Results Labs : 05/24/18 22:55 05/24/18 22:55 Laboratory Results - last 24 hr 05/24/18 05/24/18 05/24/18 22:55 22:55 22:55 WBC 8.31 RBC 4.11 Hgb 13.4 Hct 39.1 MCV 95.1 H MCH 32.6 MCHC 34.3 RDW 12.5 Plt Count 133 MPV 9.4 Immature Gran % 0.1 Neutrophils % 71.5 Lymphocytes % 18.3 Monocytes % 9.3 Eosinophils % 0.7 Basophils % 0.1 Absolute Neutrophils 5.94 Absolute Lymphocytes 1.52 Absolute Monocytes 0.77 H Absolute Eosinophils 0.06 Absolute Basophils 0.01 PT 9.8 INR 1.0 APTT 22.9 Sodium 139 Potassium 3.5 Chloride 100 Carbon Dioxide 25.9 Anion Gap 13.1 H BUN 17 Creatinine 0.93 Estimated GFR/1.73 m2 58.61 Glucose 136 H Calcium 10.9 H Magnesium 1.6 L Total Bilirubin 1.0 AST 20 ALT 22 Alkaline Phosphatase 71 Troponin I < 0.02 Total Protein 8.7 H Albumin 4.2 Urine Color Urine Clarity Urine pH Ur Specific [place] Urine Protein Urine Ketones Urine Blood Urine Nitrite Urine Bilirubin Urine Urobilinogen Ur Leukocyte Esterase Urine RBC Urine WBC Ur Epithelial Cells Urine Crystals Urine Bacteria Urine Casts Urine Mucus Ur Culture Indicated? Urine Glucose 05/24/18 05/25/18 23:40 02:05 WBC RBC Hgb Hct MCV MCH MCHC RDW Plt Count MPV Immature Gran % Neutrophils % Lymphocytes % Monocytes % Eosinophils % Basophils % Absolute Neutrophils Absolute Lymphocytes Absolute Monocytes Absolute Eosinophils Absolute Basophils PT INR APTT Sodium Potassium Chloride Carbon Dioxide Anion Gap BUN Creatinine Estimated GFR/1.73 m2 Glucose Calcium Magnesium Total Bilirubin AST ALT Alkaline Phosphatase Troponin I 0.06 Total Protein Albumin Urine Color Yellow Urine Clarity Clear Urine pH 8.5 H Ur Specific [place] 1.020 Urine Protein 100 H Urine Ketones 40 H Urine Blood Negative Urine Nitrite Negative Urine Bilirubin Negative Urine Urobilinogen 0.2 Ur Leukocyte Esterase Negative Urine RBC Negative Urine WBC 0-2 Ur Epithelial Cells Rare Urine Crystals Negative Urine Bacteria Negative Urine Casts Negative Urine Mucus Negative Ur Culture Indicated? No Urine Glucose Negative Last Vital Signs Temp 37.8 C H 05/25/18 04:27 Pulse 71 05/25/18 04:39 Resp 21 05/25/18 04:27 BP 197/98 H 05/25/18 04:27 Pulse Ox 98 05/25/18 04:27
[2018-05-25 05:08] LABS: HCT 34.9 % (36.0-46.0); HGB 12.1 g/dL (12.0-15.5); Mean Corp. HGB Concentration 34.7 g/dL (32.0-36.0); Mean Corpuscular Hemoglobin 32.7 pg (27.0-33.0); Mean Corpuscular Volume 94.3 fL (80-95); Mean Platelet Volume 9.4 fL (8.0-11.0); Platelet Count 110 x1000/uL (130-400); RBC Distribution Width 12.3 % (11.7-14.6); White Blood Cell Count 6.26 k/cumm (4.4-10.8)
[2018-05-25 05:19] LABS: ALT 20 U/L (12-78); AST 19 U/L (15-37); Albumin 3.4 g/dL (3.4-5.0); Alkaline Phosphatase 59 U/L (46-116); Anion Gap 12.9 mmol/L (3-11); BUN 16 mg/dL (7-18); CO2 23.1 mmol/L (21.0-32.0); Calcium 9.9 mg/dL (8.5-10.1); Chloride 102 mmol/L (98-107); Glucose 129 mg/dL (70-100); Potassium 3.2 mmol/L (3.5-5.1); Sodium 138 mmol/L (136-145); Total Protein 7.3 g/dL (6.4-8.2)
[2018-05-25 05:27] LABS: TSH (W/Ref FT4) 2.89 uIU/mL (0.358-3.74)
[2018-05-25 05:57] LABS: Troponin I 0.07 ng/mL (0.00-0.06)
[2018-05-25] MEDS: Normal Saline 1,000 ML 125 ML IV ×2 (08:13→21:40)
[2018-05-25] MEDS: Metoprolol CR 100 MG TABCR 150 MG PO (08:14)
[2018-05-25] MEDS: Cyanocobalamin 500 MCG TAB 1000 MCG PO (08:14)
[2018-05-25] MEDS: Magnesium Oxide 400 MG TAB PO (08:15)
[2018-05-25] MEDS: Apixaban 5 MG TAB PO ×2 (08:15→19:57)
[2018-05-25] MEDS: Aspirin 81 MG CHEW PO (08:15)
[2018-05-25] MEDS: Gabapentin 300 MG CAP PO ×2 (08:15→19:58)
[2018-05-25] MEDS: Losartan 25 MG TAB PO ×2 (08:16→19:58)
[2018-05-25] MEDS: Lidocaine 5% Patch 1 PATCH TP (08:16)
[2018-05-25] MEDS: lamoTRIgine 100 MG TAB PO ×2 (08:33→19:56)
[2018-05-25] MEDS: Insulin Aspart 300 UNITS/3 ML PEN SC (08:34)
--- NOTE | 2018-05-25 08:51 | W.CARDCONSUL ---
Date of service: 05/25/18 Time of Service: 08:52 Assessment and Plan (1) Atypical chest pain: Current visit: Yes Status: Acute Patient is a poor historian. It is impossible to accurately assess her symptoms; however I do not think that she has an acute coronary syndrome. Her mildly elevated troponin could be easily due to accelerated hypertension rather than plaque rupture. There is no evidence of heart failure. She is currently in sinus rhythm. She is anticoagulated without evidence of bleeding. Continue to trend troponin until peak. If strong suspicion for ongoing ischemia proceed with nuclear stress test. Optimize blood pressure control, goal blood pressure less than 140/90. Continue aspirin, Eliquis, metoprolol, atorvastatin, and losartan at current doses. Patient was discussed with Dr. Baldwin. Follow-up in outpatient cardiology with Skylar Reyes. History of Present Illness Chief Complaint: Chest pain Narrative: 78-year-old woman with diabetes, tachybradycardia syndrome status post [employer] dual-chamber pacemaker, paroxysmal atrial fibrillation, hypertension, inferior IA in 1984 and CABG times 09/27/1992. Currently admitted because of chest pain. Prior to admission she had a one-time episode of chest pain that resolved spontaneously. She did not experience any chest pain during the prior weeks. She denies shortness of breath. She is able to perform ADLs without significant cardiopulmonary limitations. EKG upon admission showed normal sinus rhythm, an old inferior IA and nonspecific ST changes. Troponin went from undetectable to 0.07. She was hypertensive upon admission. She is currently chest pain-free. She denies PND, palpitations, edema, near-syncope or syncope, bruising or bleeding, focal deficits, GI or symptoms. ROS: 10 point ROS was performed; all pertinent positives as mentioned in HPI, all others negative. Allergies reviewed and include nifedipine, amiodarone. Medications reviewed. Cardiac medications include Eliquis 5 mg twice daily, aspirin 81 mg daily, atorvastatin 10 mg daily, losartan 25 mg twice daily, metoprolol succinate 150 mg daily, nitroglycerin as needed. [facility] reviewed; pertinent history as mentioned in HPI. Social history: Non-smoker. No alcohol. Family history: No premature coronary artery disease. PHYSICAL EXAM General: pleasant, no acute distress HEENT: Anicteric, mucus membranes moist Neck: Supple, normal JVP, brisk carotid upstrokes Chest: Non-tender, pacemaker in place, site without hematoma or fluctuation Lungs: Clear to auscultation bilaterally, no crackles or wheezes Cardiac: Regular rate, regular rhythm, normal S1S2, no murmurs Abdomen: Soft, non-tender, bowel sounds present Extremities: No clubbing, cyanosis or edema, equal pulses in all 4 extremities Skin: Warm and dry, no rashes Neuro: Alert and oriented, grossly intact. DATA reviewed. EKG from admission reviewed and interpreted to show sinus rhythm 84 bpm, normal axis and intervals, old inferior IA, nonspecific ST changes. Laboratory data from admission reviewed. WBC 6.3, hemoglobin 12.1, hematocrit 35, platelets 100. Sodium 138, potassium 3.2, creatinine 0.8. Troponin 0 0.07. Last echo: Not available Last stress test: Not available Last cardiac catheterization: 2014. Study reviewed. No de daya stenoses, patent grafts; no PCI Consults Consult date: 05/25/18 Requesting physician: Cristofer Rosenberg Results Last Vital Signs Temp 37.6 C H 05/25/18 07:40 Pulse 81 05/25/18 07:40 Resp 18 05/25/18 07:40 BP 163/89 H 05/25/18 07:40 Pulse Ox 95 05/25/18 07:40 Labs : 05/25/18 04:55 05/25/18 04:55 Laboratory Results - last 24 hr 05/24/18 05/24/18 05/24/18 22:55 22:55 22:55 WBC 8.31 RBC 4.11 Hgb 13.4 Hct 39.1 MCV 95.1 H MCH 32.6 MCHC 34.3 RDW 12.5 Plt Count 133 MPV 9.4 Immature Gran % 0.1 Neutrophils % 71.5 Lymphocytes % 18.3 Monocytes % 9.3 Eosinophils % 0.7 Basophils % 0.1 Absolute Neutrophils 5.94 Absolute Lymphocytes 1.52 Absolute Monocytes 0.77 H Absolute Eosinophils 0.06 Absolute Basophils 0.01 PT 9.8 INR 1.0 APTT 22.9 Sodium 139 Potassium 3.5 Chloride 100 Carbon Dioxide 25.9 Anion Gap 13.1 H BUN 17 Creatinine 0.93 Estimated GFR/1.73 m2 58.61 Glucose 136 H Calcium 10.9 H Magnesium 1.6 L Total Bilirubin 1.0 AST 20 ALT 22 Alkaline Phosphatase 71 Troponin I < 0.02 Total Protein 8.7 H Albumin 4.2 TSH Urine Color Urine Clarity Urine pH Ur Specific [place] Urine Protein Urine Ketones Urine Blood Urine Nitrite Urine Bilirubin Urine Urobilinogen Ur Leukocyte Esterase Urine RBC Urine WBC Ur Epithelial Cells Urine Crystals Urine Bacteria Urine Casts Urine Mucus Ur Culture Indicated? Urine Glucose 05/24/18 05/25/18 05/25/18 23:40 02:05 04:55 WBC RBC Hgb Hct MCV MCH MCHC RDW Plt Count MPV Immature Gran % Neutrophils % Lymphocytes % Monocytes % Eosinophils % Basophils % Absolute Neutrophils Absolute Lymphocytes Absolute Monocytes Absolute Eosinophils Absolute Basophils PT INR APTT Sodium Potassium Chloride Carbon Dioxide Anion Gap BUN Creatinine Estimated GFR/1.73 m2 Glucose Calcium Magnesium Total Bilirubin AST ALT Alkaline Phosphatase Troponin I 0.06 0.07 H Total Protein Albumin TSH Urine Color Yellow Urine Clarity Clear Urine pH 8.5 H Ur Specific [place] 1.020 Urine Protein 100 H Urine Ketones 40 H Urine Blood Negative Urine Nitrite Negative Urine Bilirubin Negative Urine Urobilinogen 0.2 Ur Leukocyte Esterase Negative Urine RBC Negative Urine WBC 0-2 Ur Epithelial Cells Rare Urine Crystals Negative Urine Bacteria Negative Urine Casts Negative Urine Mucus Negative Ur Culture Indicated? No Urine Glucose Negative 05/25/18 05/25/18 05/25/18 04:55 04:55 04:55 WBC 6.26 RBC 3.70 L Hgb 12.1 Hct 34.9 L MCV 94.3 MCH 32.7 MCHC 34.7 RDW 12.3 Plt Count 110 L MPV 9.4 Immature Gran % Neutrophils % Lymphocytes % Monocytes % Eosinophils % Basophils % Absolute Neutrophils Absolute Lymphocytes Absolute Monocytes Absolute Eosinophils Absolute Basophils PT INR APTT Sodium 138 Potassium 3.2 L Chloride 102 Carbon Dioxide 23.1 Anion Gap 12.9 H BUN 16 Creatinine 0.80 Estimated GFR/1.73 m2 >= 60.00 Glucose 129 H Calcium 9.9 Magnesium Total Bilirubin 1.0 AST 19 ALT 20 Alkaline Phosphatase 59 Troponin I Total Protein 7.3 Albumin 3.4 TSH 2.89 Urine Color Urine Clarity Urine pH Ur Specific [place] Urine Protein Urine Ketones Urine Blood Urine Nitrite Urine Bilirubin Urine Urobilinogen Ur Leukocyte Esterase Urine RBC Urine WBC Ur Epithelial Cells Urine Crystals Urine Bacteria Urine Casts Urine Mucus Ur Culture Indicated? Urine Glucose
[2018-05-25] MEDS: Pantoprazole 40 MG TABCR PO (09:28)
[2018-05-25] MEDS: Potassium Chloride 20 MEQ TABCR 40 MEQ PO ×2 (09:29→16:30)
[2018-05-25] MEDS: MAGNESIUM SULFATE 2 GM/50 ML BAG IVPB (09:29)
[2018-05-25] MEDS: Erythromycin Ophth Oint 3.5 GM TUBE OU ×3 (11:11→19:56)
[2018-05-25] MEDS: Fexofenadine 180 MG TAB 90 MG PO (11:18)
--- NOTE | 2018-05-25 11:37 | PDOC.CMIN ---
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 The couple have four adult children all of whom are supportive. Ha provides transportation as Liliana no longer drives. CURRENT FUNCTIONAL STATUS:: Liliana is sitting up in her chair after returning from a full day of testing and work up. Liliana's , Ha and daughter are at her side. ADVANCE DIRECTIVES:: On file. Agent: Ha Haynes, Alternate: Jacquelyn Chavira Has patient been provided with information about the portal?: Yes Did the patient sign up for the portal?: No CODE STATUS:: Full Code INSURANCE COVERAGE / FINANCIAL ISSUES:: BS. [employer]. Medicare CURRENT HOME/COMMUNITY SERVICES/EQUIPMENT:: No current services through [facility] per Anais of Admissions although she has had HH services in past. Liliana reports a raised toilet seat, tub transfer bench, commode, HH shower, 4-wheeled walker(she reports is too fast for her to use safely) FWW, glucometer for home use. PRIMARY CARE PHYSICIAN:: Familia Mazariegos POTENTIAL DISCHARGE NEEDS:: Evaluation of further needs, follow up appointments. PATIENT/FAMILY EDUCATION NEEDS:: Review discharge instructions, discuss Ask Me Three. ANTICIPATED BARRIERS TO DISCHARGE:: None identified. TRANSPORTATION:: Liliana will transport via private vehicle with her , PLAN:: Liliana will discharge home when ready per MD; CM will continue to follow and support discharge planning considerations. Liliana will also follow up with her PCP and plan of care, she will transport home via private vehicle with her , Ha.
[2018-05-25 12:53] LABS: Troponin I 0.04 ng/mL (0.00-0.06)
--- NOTE | 2018-05-25 13:00 | MERGEMPI_ITS ---
*[facility]* *[facility]* [address] [place] [address] Myocardial Perfusion Imaging - SPECT Regadenoson Date of study: 05/25/2018 *PATIENT PRESENTATION* Height: 152.4cm (60in) Blood Pressure: Weight: 63.6kg (140lb) BSA: 1.66m^2 Ordering physician: Meliton Baldwin Impressions: Positive stress test after pharmacologic stress. Summary: 1. Myocardial perfusion imaging: There is a moderate sized, moderately intense, partially reversible defect involving the inferior and inferolateral wall(s). This suggests small myocardial infarction and small ischemia in the distribution of right coronary artery or the left circumflex coronary artery. 2. The calculated left ventricular ejection fraction after stress: 50%. LV global systolic function is normal. There is hypokinesis involving the inferior wall(s) of the left ventricle. 3. Stress ECG conclusions: The stress ECG is negative. 4. Baseline ECG: Nonspecific ST and T wave changes. Recommendations: Medical management is recommended. Indication: R07.9, Appropriate Use Criteria: A (Appropriate). History: REASON FOR TESTING: MILDLY ELEVATED TROPONIN AND TROPONIN. PATIENT IS A VERY POOR HISTORIAN. PMH: CAD, URI, ATRIAL FIB, PACEMAKER, DIABETES, HYPERTENSION, HI WITH 3V CABG. FAMILY HX: FATHER-CAD,HI. SMOKING: NEVER SMOKER. EXCERCISE: NO REGULAR EXCERCISE. Risk factors: Family history of coronary artery disease. Hypertension. Diabetes mellitus. Imaging Technique: Protocol: Regadenoson. Acquisition: Gated SPECT; 1 day - rest/stress. The patient was imaged in the supine position. Attenuation correction used. Isotope administration: - Rest. Tc[99m]-sestamibi. Dose: 10.2mCi. Injection time: 12:00 PM. Injection to stress time: 00:45. - Stress. Tc[99m]-sestamibi. Dose: 28mCi. Injection time: 02:45 PM. 1-2 min before end of exercise Baseline ECG: LAST EKG 05/24/18- SINUS RHYTHM, ST DEPRESSION. TODAY'S EKG-ATRIAL PACED, MINIMAL ST DEPRESSION. Nonspecific ST and T wave changes. Stress protocol: +--------+--+ + + !Stage !HR!BP (mmHg) !Comments ! +--------+--+ + + !Baseline!63!180/72 (108)! ! +--------+--+ + + !1 min !63!124/68 (87) !Inject Regadenoson.! +--------+--+ + + !3 min !67!128/62 (84) ! ! +--------+--+ + + !6 min !66!144/66 (92) ! ! +--------+--+ + + * Stress results: The rate-pressure product for the peak heart rate and blood pressure was 20816tk Hg/min. Stress ECG: LEXISCAN TESTING ENDED IN 6 MINS EFFECT OF MEDICATION NO LONGER PRESENT. MAX HR WAS 70, WITH A NORMAL BLOOD PRESSURE RESPONSE. ECTOPY: NONE SEEN. ANGINA: NO REPORTED CHEST PAIN OR PRESSURE. ISCHEMIA:. NO ST CHANGES NOTED. The stress ECG is negative. Myocardial perfusion: Imaging information: gated. The image quality was fair. Left ventricular size is normal. Right ventricular size is normal. There is a moderate sized, moderately intense, partially reversible defect involving the inferior and inferolateral wall(s). This suggests small myocardial infarction and small ischemia in the distribution of right coronary artery or the left circumflex coronary artery. Ventricular Function (Wall Motion): The calculated left ventricular ejection fraction after stress: 50%. LV global systolic function is normal. There is hypokinesis involving the inferior wall(s) of the left ventricle. Right ventricular function is normal. Study data: Nolan Mcdonnell MD supervised and was readily available during the procedure. This study was interpreted by [facility]. Study status: Routine. Consent: The risks, benefits, and alternatives to the procedure were explained to the patient and informed consent was obtained. Procedure: Initial setup. A baseline ECG was recorded. Surface ECG leads and manual cuff blood pressure measurements were monitored. Heart sounds: Normal. Lung sounds: Normal. Regadenoson stress test. Stress testing was performed, with regadenoson by intravenous bolus, for a total dose of 0.4mgover 10.00sec, followed by a 5ml saline flush. The infusion was terminated due to per protocol. The patient was unable to exercise due to deconditioning and or frailty. The patient was unable to exercise due to METOPROLOL 150 MG. Study completion: All catheters inserted during the procedure were removed. The patient tolerated the procedure well and was discharged from the lab. Discharge: The patient left the laboratory in stable condition. Birthdate: Patient birthdate: 1940. Sex: Gender: female. Study date: Study date: 05/25/2018. Study time: 12:30 PM. Signature Documentation: - The imaging portion of this study was interpreted by Nuclear Senior Auditor Nolan Mcdonnell MD. - The imaging portion of this study was interpreted by Nuclear Radiologist Roshan Mosqueda MD. - The Stress ECG portion of this study was interpreted by Nolan Mcdonnell MD. Electronically signed by Nolan Mcdonnell 05/27/2018 10:06
[2018-05-25] MEDS: Regadenoson 0.4 MG/5 ML SYR IVP (14:33)
--- NOTE | 2018-05-25 14:59 | PHARADMIT ---
Addendum entered by Landon Nicole III 05/26/18 14:42: Pharmacy Note Subjective Patient had MPI study 05/25 showing heart wall defect. [facility] Consult and patient is awaiting a bed. Objective VS-OK Labs-WNL K+3.9 Wgt-65.8 kg Had BM Assessment MD continues Apixaban, ASA, Toprol-XL,etc Plan Patient continues care as she awaiting a bed a [facility] Original Note: Admission Pharmacy Clinical Review chest pain Code Status Full Code Current Weight 63.6 kg Renally Cleared and Narrow Therapeutic Index Meds crcl ~45ml/min QTc Value / Action Taken 449 BP Control, Fever 124/67 Electrolytes reviewed K 3.2 DVT Prophylaxis apixaban Opiate Usage / Scheduled Bowel Regimen Ordered no/prn Plt/SCr for Heparin / Enoxaparin 110/0.80 INR for Warfarin 1.0 H/H stable, WBC/Bands 12.1/34.9 wbc 6.26 Antibiotic appropriateness na Cultures and Sensitivities na Surgical ABX d/c within 24 hr na DM control / Insulin Dosing FS 140, insulin aspart Heart Failure (Check EF%) (RHIANNON's, B-Block, Diuretics) IV to PO Switch Home Meds Reviewed ok Home Meds Not Ordered insulin detemir (U-100) Comments troponin 0.02, 0.06, 0.07, 0.04
--- NOTE | 2018-05-25 15:25 | INITIAL_ITS ---
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 The couple have four adult children all of whom are supportive. Ha provides transportation as Liliana no longer drives. CURRENT FUNCTIONAL STATUS:: Liliana is sitting up in her chair after returning from a full day of testing and work up. Liliana's , Ha and daughter are at her side. ADVANCE DIRECTIVES:: On file. Agent: Ha Haynes, Alternate: Jacquelyn Chavira Has patient been provided with information about the portal?: Yes Did the patient sign up for the portal?: No CODE STATUS:: Full Code INSURANCE COVERAGE / FINANCIAL ISSUES:: BS. Cardona. Medicare CURRENT HOME/COMMUNITY SERVICES/EQUIPMENT:: No current services through [facility] per Anais of Admissions although she has had HH services in past. Liliana reports a raised toilet seat, tub transfer bench, commode, HH shower, 4-wheeled walker(she reports is too fast for her to use safely) FWW, glucometer for home use. PRIMARY CARE PHYSICIAN:: Familia Mazariegos POTENTIAL DISCHARGE NEEDS:: Evaluation of further needs, follow up appointments. PATIENT/FAMILY EDUCATION NEEDS:: Review discharge instructions, discuss Ask Me Three. ANTICIPATED BARRIERS TO DISCHARGE:: None identified. TRANSPORTATION:: Liliana will transport via private vehicle with her , PLAN:: Liliana will discharge home when ready per MD; CM will continue to follow and support discharge planning considerations. Liliana will also follow up with her PCP and plan of care, she will transport home via private vehicle with her , Ha.
[2018-05-25] MEDS: Normal Saline Flush 10 ML SYR IVP (16:27)
[2018-05-25] MEDS: Atorvastatin 10 MG TAB PO (19:58)
[2018-05-25] MEDS: LIDOCAINE Patch Removal 1 EACH TP (20:21)
[2018-05-25] MEDS: Acetaminophen 325 MG TAB 650 MG PO (21:35)
[2018-05-26] VITALS (12 sets, daily range): BP systolic 140–170; BP diastolic 62–96; PULSE 60–86; RESP 16–19; TEMP 37.3–38; O2SAT 94–96
[2018-05-26] MEDS: Normal Saline 1,000 ML 125 ML IV (05:32)
[2018-05-26 07:18] LABS: Anion Gap 8.3 mmol/L (3-11); BUN 12 mg/dL (7-18); CO2 25.7 mmol/L (21.0-32.0); CREATININE 0.75 mg/dL (0.55-1.02); Calcium 9.4 mg/dL (8.5-10.1); Chloride 106 mmol/L (98-107); Glucose 125 mg/dL (70-100); Magnesium 1.8 mg/dL (1.8-2.4); Potassium 3.9 mmol/L (3.5-5.1); Sodium 140 mmol/L (136-145)
[2018-05-26 07:33] LABS: Abs Immature Grans 0.01 k/cumm (0.0-0.09); Absolute Basophil Count 0.01 k/cumm (0.0-0.2); Absolute Lymphocyte Count 0.96 k/cumm (1.2-3.4); Absolute Monocyte Count 0.63 k/cumm (0.11-0.7); Absolute Neutrophil Count 4.65 k/cumm (1.2-6.7); Basophils % 0.2; Eosinophils % 1.6; HCT 37.4 % (36.0-46.0); HGB 12.3 g/dL (12.0-15.5); Immature Grans % 0.2; Lymphocytes % 15.1; Mean Corp. HGB Concentration 32.9 g/dL (32.0-36.0); Mean Corpuscular Hemoglobin 32.3 pg (27.0-33.0); Mean Corpuscular Volume 98.2 fL (80-95); Mean Platelet Volume 9.8 fL (8.0-11.0); Monocytes % 9.9; Platelet Count 121 x1000/uL (130-400); RBC 3.81 m/cumm (4.00-5.20); RBC Distribution Width 12.8 % (11.7-14.6); White Blood Cell Count 6.36 k/cumm (4.4-10.8)
[2018-05-26] MEDS: Pantoprazole 40 MG TABCR PO (08:53)
[2018-05-26] MEDS: Magnesium Oxide 400 MG TAB PO (08:53)
[2018-05-26] MEDS: LORazepam 0.5 MG TAB PO ×2 (08:54→20:08)
[2018-05-26] MEDS: Gabapentin 300 MG CAP PO ×2 (08:54→20:09)
[2018-05-26] MEDS: Cyanocobalamin 500 MCG TAB 1000 MCG PO (08:54)
[2018-05-26] MEDS: Losartan 25 MG TAB PO ×2 (08:55→20:09)
[2018-05-26] MEDS: Metoprolol CR 100 MG TABCR 150 MG PO (08:55)
[2018-05-26] MEDS: Apixaban 5 MG TAB PO ×2 (08:55→20:09)
[2018-05-26] MEDS: Fexofenadine 180 MG TAB 90 MG PO (08:57)
[2018-05-26] MEDS: Lidocaine 5% Patch 1 PATCH TP (08:57)
[2018-05-26] MEDS: Normal Saline Flush 10 ML SYR IVP (08:57)
[2018-05-26] MEDS: lamoTRIgine 100 MG TAB PO ×2 (08:57→20:09)
[2018-05-26] MEDS: Aspirin 81 MG CHEW PO (08:58)
[2018-05-26] MEDS: Erythromycin Ophth Oint 3.5 GM TUBE OU ×3 (08:59→20:10)
--- NOTE | 2018-05-26 10:55 | DM INPTCON_ITS ---
DESCRIPTION/ASSESSMENT: Appreciate diabetes consult for Liliana Haynes who is hospitalized with heart concerns. A1c 6.8 BMI 26 Blood sugars this hospitalization 109-140mg/dl with only insulin correction at the sensitive level. At home she takes 21u Detemir twice daily and Aspart of unknown amount (Home Medication list states 21u twice daily). She is eating poorly 13-15 grams carbohydrate per meal recorded. Liliana has had diabetes self management support in the past and has been managing diabetes with insulin for years. INTERVENTION: Liliana has well managed blood sugars without her usual basal and bolus insulin regimen. No intervention suggested at this time. PLAN: Will follow blood sugars and stop by to see if she has self management support needs.
--- NOTE | 2018-05-26 12:54 | PDOC.CMPRO ---
Care Management Progress Note Liliana has been accepted at [facility] [place] [place] pending bed availability per MD. She will transport via EMS.
--- NOTE | 2018-05-26 13:41 | W.PM.PROGNOT ---
Date of Service Date of service: 05/26/18 Time of Service: 13:41 Assessment and Plan (1) Chest pain: Current visit: Yes Status: Acute Atypical chest pain with minimal and equivocal rise in troponin prior to downtrending. Review of prior records indicate mild elevation of cardiac biomarkers in May of 2017 and July 2017 (Troponin 0.11 - 0.58) in setting of acute illness and Afib with RVR. This mild elevation may have been related to relative hypertension, with systolic values initially in the 180-220's range. Given that patient's CABG was approximately 25 years prior a nuclear stress was obtained, and interpreted as positive for a transient inferior wall defect, but overall a poor study. Case was discussed with [facility] [place] LHC, and patient was accepted pending bed availability. Of note, she has undergone a LHC in 2014 that was interpreted as negative for flow limiting lesions with patent grafts - report not currently available. (2) URI (upper respiratory infection): Current visit: Yes Status: Acute Febrile upper respiratory illness - Potentially Viral. Rapid Flu, CXR and Urinalysis negative. Monitor symptoms and treat supportively. Patient also with evidence of conjunctivitis, currently on topical treatment. (3) Coronary artery disease: Current visit: No Status: Chronic With atypical chest pain and abnormal stress as above. Continue ASA, high potency statin, and BB therapy, with prn NTG. Patient on chronic anticoagulation with Apixaban. For potential LHC at [facility]. (4) Hyperlipidemia: Current visit: Yes Status: Chronic (5) Conjunctivitis: Current visit: Yes Status: Acute Right eye - overall appears improved with less purulent discharge following administration of topical Erythromycin, now day #2. However, with minimal erythema surrounding the orbit that is not warm to touch and with decreased edema surrounding the eye as well. Does not appear cellulitic at this time but needs close monitoring. (6) DM type 2, controlled, with complication: Current visit: Yes Status: Chronic (7) Chronic atrial fibrillation: Current visit: Yes Status: Chronic Paroxysmal, and currently in sinus with periods of atrial pacing. Continue BB. On anticoagulation with Apixaban. (8) Chronic kidney disease, stage III (moderate): Current visit: No Status: Chronic Creatinine at baseline. Monitor, and avoid nephrotoxins. 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 (11) DVT prophylaxis: Current visit: Yes Status: Acute On Chronic anticoagulation with Apixaban. Subjective Interval history since last seen: 78-year-old woman with a past medical history significant for Paroxysmal Afib on AC, Tachy/Harshad Syndrome s/p PPM, and prior CAD with an inferior wall OK in 1984 and CABG X3 in 1992, admitted from [facility] emergency department with complaints of chest pain. Mrs. Haynes had began developing pleuritic chest pain, reportedly with inspiration and cough, prior to presenting to the emergency room. She reported that her discomfort was different than when she had a cardiac event in the past. She also endorsed dyspnea with exertion. The patient had apparently developed upper respiratory symptoms over the last 3 days, including cough and sore throat, along with discomfort in her right eye. She reported that her was recently ill with similar symptoms. Work-up in the emergency room was significant for lack of hypoxia, tachycardia, leukocytosis, or abnormality on CXR. Since her admission a subsequent urinalysis and influenza swab were also checked and negative. She has however had low grade fevers since her admission, with a TMax of 38 last night. At time of her admission the patient's troponin was normal, but following she had a minimal elevation at 0.07 prior to return to normal levels. She has also remained asymptomatic without recurrence of chest pain. Given her cardiac history and the fact that her revascularization was 25 years prior, a nuclear stress test was ordered and performed, now officially interpreted as with a potential inferior wall defect. This morning the patient is reporting continued URI type symptoms. No other events were reported overnight. Exam Narrative Exam Narrative: General: Patient appears comfortable, AAOX3, NAD HEENT: Right eye with mild surrounding erythema, but improvement overall of edema and discharge Neck: Supple CV: Regular, nontachycardic, S1S2, No rubs, murmurs, or gallops. Anterior chest wall Pacemaker noted in place. Pulmonary: Clear to auscultation bilaterally, no crackles, wheezing, or rhonchi Abdomen: + Bowel Sounds, soft, nontender, nondistended Vascular: No lower extremity edema Psych: Normal mood and affect. Objective Objective Clinical Data: Abnormal lab results 05/26/18 05/26/18 Range/Units 06:15 06:15 RBC 3.81 L (4.00-5.20) m/cumm MCV 98.2 H (80-95) fL Plt Count 121 L (130-400) x1000/uL Absolute Lymphocytes 0.96 L (1.2-3.4) k/cumm Glucose 125 H (70-100) mg/dL Vital Signs Temperature 37.5 C 05/26/18 11:40 Temperature Source Tympanic 05/26/18 11:40 Pulse 60 05/26/18 11:40 Pulse Rhythm Regular 05/26/18 08:45 Pulse 67 05/25/18 03:31 Respiratory Rate 18 05/26/18 11:40 Respiratory Effort Non-Labored 05/26/18 08:45 Respiratory Depth Normal 05/26/18 08:45 Respiratory Pattern Normal 05/26/18 08:45 Blood Pressure 145/75 H 05/26/18 11:40 Blood Pressure Mean 104 05/25/18 03:31 Blood Pressure Position Sitting 05/24/18 22:50 Pulse Oximetry 94 L 05/26/18 11:40 Oxygen Delivery Method Room Air 05/26/18 11:40 Oxygen Flow Rate 0 05/26/18 11:40 Pain Level 0 05/26/18 11:40 Intake & Output 05/25/18 05/26/18 05/26/18 23:59 11:59 23:59 Intake Total 660 / 660 2783.333 / 2783.333 Output Total 900 / 900 Balance 660 / 660 1883.333 / 1883.333 Weight 65.85 kg Intake: IV 660 / 660 1982.333 / 1982.333 Oral 800 / 800 Output: Urine 900 / 900 Other: Urine Color Yellow Yellow Urine Appearance Clear Clear Urine Odor Normal Stool Size Small Stool Characteristics Soft Brown Voiding Methods Toilet Toilet Laboratory Results WBC 6.36 k/cumm (4.4-10.8) 05/26/18 06:15 RBC 3.81 m/cumm (4.00-5.20) L 05/26/18 06:15 Hgb 12.3 g/dL (12.0-15.5) 05/26/18 06:15 Hct 37.4 % (36.0-46.0) 05/26/18 06:15 MCV 98.2 fL (80-95) H 05/26/18 06:15 MCH 32.3 pg (27.0-33.0) 05/26/18 06:15 MCHC 32.9 g/dL (32.0-36.0) 05/26/18 06:15 RDW 12.8 % (11.7-14.6) 05/26/18 06:15 Plt Count 121 x1000/uL (130-400) L 05/26/18 06:15 MPV 9.8 fL (8.0-11.0) 05/26/18 06:15 Immature Gran % 0.2 05/26/18 06:15 Neutrophils % 73.0 05/26/18 06:15 Lymphocytes % 15.1 05/26/18 06:15 Monocytes % 9.9 05/26/18 06:15 Eosinophils % 1.6 05/26/18 06:15 Basophils % 0.2 05/26/18 06:15 Absolute Neutrophils 4.65 k/cumm (1.2-6.7) 05/26/18 06:15 Absolute Lymphocytes 0.96 k/cumm (1.2-3.4) L 05/26/18 06:15 Absolute Monocytes 0.63 k/cumm (0.11-0.7) 05/26/18 06:15 Absolute Eosinophils 0.10 k/cumm (0.0-0.7) 05/26/18 06:15 Absolute Basophils 0.01 k/cumm (0.0-0.2) 05/26/18 06:15 PT 9.8 sec (9.3-10.8) 05/24/18 22:55 INR 1.0 (1.0-3.5) 05/24/18 22:55 APTT 22.9 sec (21.0-31.4) 05/24/18 22:55 Sodium 140 mmol/L (136-145) 05/26/18 06:15 Potassium 3.9 mmol/L (3.5-5.1) D 05/26/18 06:15 Chloride 106 mmol/L (98-107) 05/26/18 06:15 Carbon Dioxide 25.7 mmol/L (21.0-32.0) 05/26/18 06:15 Anion Gap 8.3 mmol/L (3-11) 11/15/18 06:15 BUN 12 mg/dL (7-18) 05/26/18 06:15 Creatinine 0.75 mg/dL (0.55-1.02) 05/26/18 06:15 Estimated GFR/1.73 m2 >= 60.00 (mL/min/1.73m2) 05/26/18 06:15 Glucose 125 mg/dL (70-100) H 05/26/18 06:15 Calcium 9.4 mg/dL (8.5-10.1) 05/26/18 06:15 Magnesium 1.8 mg/dL (1.8-2.4) 05/26/18 06:15 Total Bilirubin 1.0 mg/dL (0.2-1.0) 05/25/18 04:55 AST 19 U/L (15-37) 05/25/18 04:55 ALT 20 U/L (12-78) 05/25/18 04:55 Alkaline Phosphatase 59 U/L (46-116) 05/25/18 04:55 Troponin I 0.04 ng/mL (0.00-0.06) 05/25/18 12:30 Total Protein 7.3 g/dL (6.4-8.2) 05/25/18 04:55 Albumin 3.4 g/dL (3.4-5.0) 05/25/18 04:55 TSH 2.89 uIU/mL (0.358-3.74) 05/25/18 04:55 Urine Color Yellow (Yellow) 05/24/18 23:40 Urine Clarity Clear 05/24/18 23:40 Urine pH 8.5 (5-8) H 05/24/18 23:40 Ur Specific Astor 1.020 (1.005-1.025) 05/24/18 23:40 Urine Protein 100 mg/dL (Negative) H 05/24/18 23:40 Urine Ketones 40 mg/dL (Negative) H 05/24/18 23:40 Urine Blood Negative (Negative) 05/24/18 23:40 Urine Nitrite Negative (Negative) 05/24/18 23:40 Urine Bilirubin Negative (Negative) 05/24/18 23:40 Urine Urobilinogen 0.2 EU/dL (Up TO 0.2) 05/24/18 23:40 Ur Leukocyte Esterase Negative (Negative) 05/24/18 23:40 Urine RBC Negative (0-2) 05/24/18 23:40 Urine WBC 0-2 HPF (0-5) 05/24/18 23:40 Ur Epithelial Cells Rare HPF (Negative) 05/24/18 23:40 Urine Crystals Negative HPF (Negative) 05/24/18 23:40 Urine Bacteria Negative HPF (Negative) 05/24/18 23:40 Urine Casts Negative LPF (Negative) 05/24/18 23:40 Urine Mucus Negative (Negative) 05/24/18 23:40 Ur Culture Indicated? No 05/24/18 23:40 Urine Glucose Negative mg/dL (Negative) 05/24/18 23:40
--- NOTE | 2018-05-26 13:56 | CMPROGNOTE_ITS ---
Care Management Progress Note Liliana has been accepted at [facility] [place] pending bed availability per MD. She will transport via EMS.
--- NOTE | 2018-05-26 14:15 | PGE_ITS ---
Date of Service Date of service: 05/26/18 Time of Service: 13:41 Assessment and Plan (1) Chest pain: Current visit: Yes Status: Acute Atypical chest pain with minimal and equivocal rise in troponin prior to downtrending. Review of prior records indicate mild elevation of cardiac biomarkers in May of 2017 and July 2017 (Troponin 0.11 - 0.58) in setting of acute illness and Afib with RVR. This mild elevation may have been related to relative hypertension, with systolic values initially in the 180-220' s range. Given that patient's CABG was approximately 25 years prior a nuclear stress was obtained, and interpreted as positive for a transient inferior wall defect, but overall a poor study. Case was discussed with [facility] for potential diagnostic LHC , and patient was accepted pending bed availability. Of note, she has undergone a LHC in 2014 that was interpreted as negative for flow limiting lesions with patent grafts - report not currently available. (2) URI (upper respiratory infection): Current visit: Yes Status: Acute Febrile upper respiratory illness - Potentially Viral. Rapid Flu, CXR and Urinalysis negative. Monitor symptoms and treat supportively. Patient also with evidence of conjunctivitis, currently on topical treatment. (3) Coronary artery disease: Current visit: No Status: Chronic With atypical chest pain and abnormal stress as above. Continue ASA, high potency statin, and BB therapy, with prn NTG. Patient on chronic anticoagulation with Apixaban. For potential LHC at [facility]. (4) Hyperlipidemia: Current visit: Yes Status: Chronic (5) Conjunctivitis: Current visit: Yes Status: Acute Right eye - overall appears improved with less purulent discharge following administration of topical Erythromycin, now day #2. However, with minimal erythema surrounding the orbit that is not warm to touch and with decreased edema surrounding the eye as well. Does not appear cellulitic at this time but needs close monitoring. (6) DM type 2, controlled, with complication: Current visit: Yes Status: Chronic (7) Chronic atrial fibrillation: Current visit: Yes Status: Chronic Paroxysmal, and currently in sinus with periods of atrial pacing. Continue BB. On anticoagulation with Apixaban. (8) Chronic kidney disease, stage III (moderate): Current visit: No Status: Chronic Creatinine at baseline. Monitor, and avoid nephrotoxins. 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 (11) DVT prophylaxis: Current visit: Yes Status: Acute On Chronic anticoagulation with Apixaban. Subjective Interval history since last seen: 78-year-old woman with a past medical history significant for Paroxysmal Afib on AC, Tachy/Harshad Syndrome s/p PPM, and prior CAD with an inferior wall CO in 1984 and CABG X3 in 1992, admitted from [facility] emergency department with complaints of chest pain. Mrs. Haynes had began developing pleuritic chest pain, reportedly with inspiration and cough, prior to presenting to the emergency room. She reported that her discomfort was different than when she had a cardiac event in the past. She also endorsed dyspnea with exertion. The patient had apparently developed upper respiratory symptoms over the last 3 days, including cough and sore throat, along with discomfort in her right eye. She reported that her was recently ill with similar symptoms. Work-up in the emergency room was significant for lack of hypoxia, tachycardia, leukocytosis, or abnormality on CXR. Since her admission a subsequent urinalysis and influenza swab were also checked and negative. She has however had low grade fevers since her admission, with a TMax of 38 last night. At time of her admission the patient's troponin was normal, but following she had a minimal elevation at 0.07 prior to return to normal levels. She has also remained asymptomatic without recurrence of chest pain. Given her cardiac history and the fact that her revascularization was 25 years prior, a nuclear stress test was ordered and performed, now officially interpreted as with a potential inferior wall defect. This morning the patient is reporting continued URI type symptoms. No other events were reported overnight. Exam Narrative Exam Narrative: General: Patient appears comfortable, AAOX3, NAD HEENT: Right eye with mild surrounding erythema, but improvement overall of edema and discharge Neck: Supple CV: Regular, nontachycardic, S1S2, No rubs, murmurs, or gallops. Anterior chest wall Pacemaker noted in place. Pulmonary: Clear to auscultation bilaterally, no crackles, wheezing, or rhonchi Abdomen: + Bowel Sounds, soft, nontender, nondistended Vascular: No lower extremity edema Psych: Normal mood and affect. Objective Objective Clinical Data: Abnormal lab results 05/26/18 05/26/18 Range/Units 06:15 06:15 RBC 3.81 L (4.00-5.20) m/cumm MCV 98.2 H (80-95) fL Plt Count 121 L (130-400) x1000/uL Absolute Lymphocytes 0.96 L (1.2-3.4) k/cumm Glucose 125 H (70-100) mg/dL Vital Signs Temperature 37.5 C 05/26/18 11:40 Temperature Source Tympanic 05/26/18 11:40 Pulse 60 05/26/18 11:40 Pulse Rhythm Regular 05/26/18 08:45 Pulse 67 05/25/18 03:31 Respiratory Rate 18 05/26/18 11:40 Respiratory Effort Non-Labored 05/26/18 08:45 Respiratory Depth Normal 05/26/18 08:45 Respiratory Pattern Normal 05/26/18 08:45 Blood Pressure 145/75 H 05/26/18 11:40 Blood Pressure Mean 104 05/25/18 03:31 Blood Pressure Position Sitting 05/24/18 22:50 Pulse Oximetry 94 L 05/26/18 11:40 Oxygen Delivery Method Room Air 05/26/18 11:40 Oxygen Flow Rate 0 05/26/18 11:40 Pain Level 0 05/26/18 11:40 Intake & Output 05/25/18 05/26/18 05/26/18 23:59 11:59 23:59 Intake Total 660 / 660 2783.333 / 2783.333 Output Total 900 / 900 Balance 660 / 660 1883.333 / 1883.333 Weight 65.85 kg Intake: IV 660 / 660 1982.333 / 1982.333 Oral 800 / 800 Output: Urine 900 / 900 Other: Urine Color Yellow Yellow Urine Appearance Clear Clear Urine Odor Normal Stool Size Small Stool Characteristics Soft Brown Voiding Methods Toilet Toilet Laboratory Results WBC 6.36 k/cumm (4.4-10.8) 05/26/18 06:15 RBC 3.81 m/cumm (4.00-5.20) L 05/26/18 06:15 Hgb 12.3 g/dL (12.0-15.5) 05/26/18 06:15 Hct 37.4 % (36.0-46.0) 05/26/18 06:15 MCV 98.2 fL (80-95) H 05/26/18 06:15 MCH 32.3 pg (27.0-33.0) 05/26/18 06:15 MCHC 32.9 g/dL (32.0-36.0) 05/26/18 06:15 RDW 12.8 % (11.7-14.6) 05/26/18 06:15 Plt Count 121 x1000/uL (130-400) L 05/26/18 06:15 MPV 9.8 fL (8.0-11.0) 05/26/18 06:15 Immature Gran % 0.2 05/26/18 06:15 Neutrophils % 73.0 05/26/18 06:15 Lymphocytes % 15.1 05/26/18 06:15 Monocytes % 9.9 05/26/18 06:15 Eosinophils % 1.6 05/26/18 06:15 Basophils % 0.2 05/26/18 06:15 Absolute Neutrophils 4.65 k/cumm (1.2-6.7) 05/26/18 06:15 Absolute Lymphocytes 0.96 k/cumm (1.2-3.4) L 05/26/18 06:15 Absolute Monocytes 0.63 k/cumm (0.11-0.7) 05/26/18 06:15 Absolute Eosinophils 0.10 k/cumm (0.0-0.7) 05/26/18 06:15 Absolute Basophils 0.01 k/cumm (0.0-0.2) 05/26/18 06:15 PT 9.8 sec (9.3-10.8) 05/24/18 22:55 INR 1.0 (1.0-3.5) 05/24/18 22:55 APTT 22.9 sec (21.0-31.4) 05/24/18 22:55 Sodium 140 mmol/L (136-145) 05/26/18 06:15 Potassium 3.9 mmol/L (3.5-5.1) D 05/26/18 06:15 Chloride 106 mmol/L (98-107) 05/26/18 06:15 Carbon Dioxide 25.7 mmol/L (21.0-32.0) 05/26/18 06:15 Anion Gap 8.3 mmol/L (3-11) 11/15/18 06:15 BUN 12 mg/dL (7-18) 05/26/18 06:15 Creatinine 0.75 mg/dL (0.55-1.02) 05/26/18 06:15 Estimated GFR/1.73 m2 >= 60.00 (mL/min/1.73m2) 05/26/18 06:15 Glucose 125 mg/dL (70-100) H 05/26/18 06:15 Calcium 9.4 mg/dL (8.5-10.1) 05/26/18 06:15 Magnesium 1.8 mg/dL (1.8-2.4) 05/26/18 06:15 Total Bilirubin 1.0 mg/dL (0.2-1.0) 05/25/18 04:55 AST 19 U/L (15-37) 05/25/18 04:55 ALT 20 U/L (12-78) 05/25/18 04:55 Alkaline Phosphatase 59 U/L (46-116) 05/25/18 04:55 Troponin I 0.04 ng/mL (0.00-0.06) 05/25/18 12:30 Total Protein 7.3 g/dL (6.4-8.2) 05/25/18 04:55 Albumin 3.4 g/dL (3.4-5.0) 05/25/18 04:55 TSH 2.89 uIU/mL (0.358-3.74) 05/25/18 04:55 Urine Color Yellow (Yellow) 05/24/18 23:40 Urine Clarity Clear 05/24/18 23:40 Urine pH 8.5 (5-8) H 05/24/18 23:40 Ur Specific Comstock 1.020 (1.005-1.025) 05/24/18 23:40 Urine Protein 100 mg/dL (Negative) H 05/24/18 23:40 Urine Ketones 40 mg/dL (Negative) H 05/24/18 23:40 Urine Blood Negative (Negative) 05/24/18 23:40 Urine Nitrite Negative (Negative) 05/24/18 23:40 Urine Bilirubin Negative (Negative) 05/24/18 23:40 Urine Urobilinogen 0.2 EU/dL (Up TO 0.2) 05/24/18 23:40 Ur Leukocyte Esterase Negative (Negative) 05/24/18 23:40 Urine RBC Negative (0-2) 05/24/18 23:40 Urine WBC 0-2 HPF (0-5) 05/24/18 23:40 Ur Epithelial Cells Rare HPF (Negative) 05/24/18 23:40 Urine Crystals Negative HPF (Negative) 05/24/18 23:40 Urine Bacteria Negative HPF (Negative) 05/24/18 23:40 Urine Casts Negative LPF (Negative) 05/24/18 23:40 Urine Mucus Negative (Negative) 05/24/18 23:40 Ur Culture Indicated? No 05/24/18 23:40 Urine Glucose Negative mg/dL (Negative) 05/24/18 23:40
[2018-05-26] MEDS: Insulin Aspart 300 UNITS/3 ML PEN SC (17:25)
[2018-05-26] MEDS: traZODone 50 MG TAB PO (20:09)
[2018-05-26] MEDS: Atorvastatin 10 MG TAB PO (20:09)
[2018-05-26] MEDS: LIDOCAINE Patch Removal 1 EACH TP (20:10)
[2018-05-26] MEDS: Acetaminophen 325 MG TAB 650 MG PO (20:22)
[2018-05-27 04:37] VITALS: BP 139/62; PULSE 60; RESP 18; TEMP 37.2; O2SAT 93
[2018-05-27 07:24] LABS: Abs Immature Grans 0.01 k/cumm (0.0-0.09); Absolute Basophil Count 0.02 k/cumm (0.0-0.2); Absolute Eosinophil Count 0.18 k/cumm (0.0-0.7); Absolute Lymphocyte Count 1.13 k/cumm (1.2-3.4); Absolute Monocyte Count 0.72 k/cumm (0.11-0.7); Absolute Neutrophil Count 4.74 k/cumm (1.2-6.7); Basophils % 0.3; Eosinophils % 2.6; HCT 35.6 % (36.0-46.0); HGB 11.9 g/dL (12.0-15.5); Immature Grans % 0.1; Lymphocytes % 16.6; Mean Corp. HGB Concentration 33.4 g/dL (32.0-36.0); Mean Corpuscular Hemoglobin 32.6 pg (27.0-33.0); Mean Corpuscular Volume 97.5 fL (80-95); Mean Platelet Volume 9.4 fL (8.0-11.0); Monocytes % 10.6; Neutrophils % 69.8; Platelet Count 124 x1000/uL (130-400); RBC 3.65 m/cumm (4.00-5.20); RBC Distribution Width 12.6 % (11.7-14.6)
[2018-05-27 07:31] LABS: Anion Gap 8.5 mmol/L (3-11); BUN 18 mg/dL (7-18); CO2 24.5 mmol/L (21.0-32.0); Calcium 9.7 mg/dL (8.5-10.1); Chloride 105 mmol/L (98-107); Glucose 135 mg/dL (70-100); Magnesium 1.7 mg/dL (1.8-2.4); Potassium 3.7 mmol/L (3.5-5.1); Sodium 138 mmol/L (136-145)
[2018-05-27 07:33] VITALS: PULSE 61
[2018-05-27 07:40] VITALS: BP 153/84; PULSE 60; RESP 18; TEMP 36.7; O2SAT 97
[2018-05-27] MEDS: Aspirin 81 MG CHEW PO (07:50)
[2018-05-27] MEDS: Magnesium Oxide 400 MG TAB PO (07:50)
[2018-05-27] MEDS: Cyanocobalamin 500 MCG TAB 1000 MCG PO (07:50)
[2018-05-27] MEDS: Apixaban 5 MG TAB PO (07:50)
[2018-05-27] MEDS: lamoTRIgine 100 MG TAB PO (07:50)
[2018-05-27] MEDS: Gabapentin 300 MG CAP PO (07:51)
[2018-05-27] MEDS: Metoprolol CR 100 MG TABCR 150 MG PO (07:51)
[2018-05-27] MEDS: LORazepam 0.5 MG TAB PO (07:51)
[2018-05-27] MEDS: Losartan 25 MG TAB PO (07:51)
[2018-05-27] MEDS: Pantoprazole 40 MG TABCR PO (07:52)
[2018-05-27] MEDS: Fexofenadine 180 MG TAB 90 MG PO (07:52)
[2018-05-27] MEDS: Normal Saline Flush 10 ML SYR IVP (07:52)
[2018-05-27] MEDS: Erythromycin Ophth Oint 3.5 GM TUBE OU ×2 (07:54→13:22)
[2018-05-27] MEDS: Lidocaine 5% Patch 1 PATCH TP (07:54)
[2018-05-27] MEDS: Potassium Chloride 20 MEQ TABCR 40 MEQ PO (09:13)
[2018-05-27] MEDS: Magnesium Oxide 400 MG TAB 800 MG PO (09:13)
[2018-05-27 11:35] VITALS: BP 130/75; PULSE 67; RESP 17; TEMP 36.9; O2SAT 98
[2018-05-27] MEDS: Insulin Aspart 300 UNITS/3 ML PEN SC (11:53)
--- NOTE | 2018-05-27 13:19 | W.PM.DS.N ---
Date of service: 05/27/18 Time of Service: 13:37 DS: Diagnosis Discharge Diagnosis (1) Chest pain: Status: Acute (2) URI (upper respiratory infection): Status: Acute (3) Coronary artery disease: Status: Chronic (4) Conjunctivitis: Status: Acute (5) Chronic atrial fibrillation: Status: Chronic Discharge Plan Disposition Patient Disposition: [facility] Condition: Stable Discharge Details Chief Complaint: RespSymp Reason For Visit: CHEST PAIN Admit Date/Time: 05/25/18 02:51 Admit Provider: Cristofer Rosenberg Attending Provider: Cristofer Rosenberg Primary Care Provider: Familia Mazariegos ED Provider: [facility] Hospital Course: CC: Chest Pain HPI: 78-year-old woman with a past medical history significant for Paroxysmal Afib on AC, Tachy/Jaquan Syndrome s/p PPM, and prior CAD with an inferior wall TX in 1984 and CABG X3 in 1992, admitted from [facility] emergency department with complaints of chest pain. Mrs. Haynes had began developing pleuritic chest pain, reportedly with inspiration and cough, prior to presenting to the emergency room. She reported that her discomfort was different than when she had a cardiac event in the past. She also endorsed dyspnea with exertion. The patient had apparently developed upper respiratory symptoms over the 3 days prior to her admission, including cough and sore throat, along with discomfort in her right eye. She reported that her was recently ill with similar symptoms, as had other family members. Work-up in the emergency room was significant for lack of hypoxia, tachycardia, leukocytosis, or abnormality on CXR. Since her admission a subsequent urinalysis and influenza swab were also checked and negative. She has however had low grade fevers since her admission, with a TMax of 38 yesterday afternoon. At time of her admission the patient's troponin was normal, but following she had a minimal elevation at 0.07 prior to return to normal levels. She has also remained asymptomatic without recurrence of chest pain. Given her cardiac history and the fact that her revascularization was 25 years prior, a nuclear stress test was ordered and performed, now officially interpreted as with a potential inferior wall defect. This morning the patient is reporting vast improvement in her URI symptoms, right eye conjunctivitis, and states no further chest pain since prior to admission. No other events were reported overnight. Assessment and Plan (1) Chest pain: Atypical chest pain with minimal and equivocal rise in troponin prior to downtrending. Review of prior records indicate mild elevation of cardiac biomarkers in May of 2017 and July 2017 (Troponin 0.11 - 0.58) in setting of acute illness and Afib with RVR. This mild elevation may have been related to relative hypertension, with systolic values initially in the 180-220's range. Given that patient's CABG was approximately 25 years prior a nuclear stress was obtained, and interpreted as positive for an inferior wall defect, but overall a poor study. Case was discussed with [facility] for potential diagnostic LHC, and patient was accepted - for transfer this afternoon. Of note, she has undergone a LHC in 2014 that was interpreted as negative for flow limiting lesions with patent grafts - report not currently available. Patient is not currently NPO. (2) URI (upper respiratory infection): Febrile upper respiratory illness - Potentially Viral. Rapid Flu, CXR and Urinalysis negative. Monitor symptoms and treat supportively. Patient also with evidence of conjunctivitis, currently on topical treatment. Reported illness in house hold with and other family members. improved without intervention. No evidence of bacterial infection by work-up, and patient appears vastly improved today. Conjunctivitis is better with topical Erythromycin as well. (3) Coronary artery disease: With atypical chest pain and abnormal stress as above. Continue ASA, high potency statin, and BB therapy, with prn NTG. Patient on chronic anticoagulation with Apixaban. For potential LHC at [facility]. (4) Hyperlipidemia: Continue statin therapy. (5) Conjunctivitis: Right eye - overall appears vastly improved. Continue Erythromycin, now day #3. (6) DM type 2, controlled, with complication: Home basal Insulin Detemir has been on hold as patient's blood sugars have ranged in the 100's for the majority of her stay. She was maintained on sliding scale coverage however. (7) Chronic atrial fibrillation: Paroxysmal, and currently in sinus with periods of atrial pacing. Continue BB. On anticoagulation with Apixaban. (8) Chronic kidney disease, stage III (moderate): Creatinine at baseline. Monitor, and avoid nephrotoxins. (9) Presence of permanent cardiac pacemaker: Secondary to history of Tachy/Jaquan Syndrome. 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 (11) Disposition To [facility] today. Home Meds and New Rx's Prescriptions: New erythromycin 5 mg/gram (0.5 %) Ointment 3.5 g OU TID 5 Days Qty: 29760 RF: 0 Continue tramadol 50 mg tablet 50 mg PO BID PRN (Reason: pain) Qty: 60 RF: 0 lorazepam 0.5 mg tablet 0.5 mg PO BID MDD 1 mg Qty: 56 RF: 2 lidocaine 5 % adhesive patch,medicated 1 patch TP DAILY Qty: 15 RF: 0 cyanocobalamin (vitamin B-12) 1,000 MCG tablet 1,000 mcg PO DAILY Qty: 90 RF: 3 cholecalciferol (vitamin D3) [Vitamin D3] 1,000 UNIT capsule 1,000 unit PO BID RF: 0 nitroglycerin [Nitrostat] 0.4 MG tablet, sublingual 0.4 mg Sublingual Q5 MIN PRN X3 PRNQty: 25 RF: 12 magnesium oxide 400 MG tablet 400 mg PO DAILY Qty: 250 RF: 6 Med Offloader Brace Qty: 1 RF: 0 Atorvastatin Calcium 10 MG tablet 10 mg PO DAILY Qty: 90 RF: 3 metoprolol succinate 100 MG tablet extended release 24 hr 150 mg PO DAILY Qty: 135 RF: 3 lamotrigine [Lamictal] 100 MG tablet 100 mg PO BID Qty: 180 RF: 3 insulin aspart U-100 [Novolog Flexpen U-100 Insulin] 100 UNIT/1 ML insulin pen 21 unit Sub-Q BID Qty: 2 RF: 4 apixaban [Eliquis] 5 MG tablet 5 mg PO BID 14 Days Qty: 28 RF: 0 lancets [FreeStyle Lancets] 1 EACH misc 1 ea Miscellaneous as directed Qty: 150 RF: 11 trazodone 50 MG tablet 50 mg PO HS 10 Days Qty: 10 RF: 0 gabapentin 300 mg capsule 300 mg PO as directed MDD 900 Qty: 15 RF: 0 losartan 25 mg tablet 25 mg PO BID 90 Days Qty: 180 RF: 2 blood-glucose meter [FreeStyle Lite Meter] kit .ROUTE .MEDSUPPLY Qty: 1 RF: 0 blood sugar diagnostic [Blood Glucose Test] strip 1 ea Miscellaneous AC & HS Qty: 120 RF: 3 insulin detemir U-100 [Levemir FlexTouch U-100 Insuln] 100 unit/mL (3 mL) insulin pen 21 unit subcut BID Qty: 4 RF: 3 pen needle, diabetic [Pen Needle] 31 gauge x /16 needle 1 ea Miscellaneous QID Qty: 100 RF: 11 fexofenadine [Aller-ease] 180 MG tablet 90 mg PO DAILY PRNRF: 0 acetaminophen [Tylenol] 325 MG tablet 650 mg PO Q4H PRN PRNQty: 0 RF: 0 aspirin [Aspirin Low-Strength] 81 MG tablet,chewable 81 mg PO DAILY RF: 0 Discharge Instructions Instructions: Chest Pain (ED) Referrals: Familia Mazariegos DO [Primary Care Provider] - Activity:: Ambulate with assistance Equipment/Supplies:: No Equipment Needed Diet:: Heart Healthy ADA Diet Discharge Orders Discharge Orders: Discharge Order (Routine); Ordered 05/27/18 Ordered By: Meliton Baldwin Exam Narrative Exam Narrative: General: Patient appears comfortable, AAOX3, NAD HEENT: Right eye with mild surrounding erythema, but improvement overall of edema and discharge Neck: Supple CV: Regular, nontachycardic, S1S2, No rubs, murmurs, or gallops. Anterior chest wall Pacemaker noted in place. Pulmonary: Clear to auscultation bilaterally, no crackles, wheezing, or rhonchi Abdomen: + Bowel Sounds, soft, nontender, nondistended Vascular: No lower extremity edema Psych: Normal mood and affect. DS: Data Vitals/I&O Vitals and I&O: Vital Signs Temperature 36.9 C 05/27/18 11:35 Temperature Source Tympanic 05/27/18 11:35 Pulse 67 05/27/18 11:35 Pulse Rhythm Regular 05/27/18 07:40 Pulse 67 05/25/18 03:31 Respiratory Rate 17 05/27/18 11:35 Respiratory Effort Non-Labored 05/27/18 07:40 Respiratory Depth Normal 05/27/18 07:40 Respiratory Pattern Normal 05/27/18 07:40 Blood Pressure 130/75 05/27/18 11:35 Blood Pressure Mean 104 05/25/18 03:31 Blood Pressure Position Sitting 05/24/18 22:50 Pulse Oximetry 98 05/27/18 11:35 Oxygen Delivery Method Room Air 05/27/18 11:35 Oxygen Flow Rate 0 05/27/18 11:35 Pain Level 0 05/27/18 11:35 Intake & Output 05/26/18 05/27/18 05/27/18 23:59 11:59 23:59 Intake Total 490 / 490 Output Total 950 / 950 775 / 775 Balance -950 / -950 -285 / -285 Weight 63.6 kg Intake: Oral 490 / 490 Output: Urine 950 / 950 775 / 775 Other: Urine Color Yellow Yellow Urine Appearance Clear Clear Urine Odor None Stool Size Large Moderate Stool Characteristics Liquid Soft Brown Brown Voiding Methods Toilet Toilet Completed studies during hospitalization [Text1]: Date of study: 05/25/2018 Impressions: Positive stress test after pharmacologic stress. Summary: 1. Myocardial perfusion imaging: There is a moderate sized, moderately intense, partially reversible defect involving the inferior and inferolateral wall(s). This suggests small myocardial infarction and small ischemia in the distribution of right coronary artery or the left circumflex coronary artery. 2. The calculated left ventricular ejection fraction after stress: 50%. LV global systolic function is normal. There is hypokinesis involving the inferior wall(s) of the left ventricle. 3. Stress ECG conclusions: The stress ECG is negative. 4. Baseline ECG: Nonspecific ST and T wave changes. Recommendations: Medical management is recommended. Exam(s) a RAD:XR chest 2V PA & lateral SYMPTOMS/DIAGNOSIS: PLEURITIC CHEST PAIN, CONFUSED PA AND LATERAL CHEST: The heart is mildly enlarged. Note is made of prior sternotomy and there is a transvenous cardiac pacemaker in position. The lungs are clear. No pleural effusions seen. CONCLUSION: No evidence of acute disease. Labs on day of discharge: Labs from last 24 hours 05/27/18 05/27/18 06:55 06:55 WBC 6.80 RBC 3.65 L Hgb 11.9 L Hct 35.6 L MCV 97.5 H MCH 32.6 MCHC 33.4 RDW 12.6 Plt Count 124 L MPV 9.4 Immature Gran % 0.1 Neutrophils % 69.8 Lymphocytes % 16.6 Monocytes % 10.6 Eosinophils % 2.6 Basophils % 0.3 Absolute Neutrophils 4.74 Absolute Lymphocytes 1.13 L Absolute Monocytes 0.72 H Absolute Eosinophils 0.18 Absolute Basophils 0.02 Sodium 138 Potassium 3.7 Chloride 105 Carbon Dioxide 24.5 Anion Gap 8.5 BUN 18 D Creatinine 0.90 Estimated GFR/1.73 m2 >= 60.00 Glucose 135 H Calcium 9.7 Magnesium 1.7 L
--- NOTE | 2018-05-27 13:27 | DSE_ITS ---
Date of service: 05/27/18 Time of Service: 13:37 DS: Diagnosis Discharge Diagnosis (1) Chest pain: Status: Acute (2) URI (upper respiratory infection): Status: Acute (3) Coronary artery disease: Status: Chronic (4) Conjunctivitis: Status: Acute (5) Chronic atrial fibrillation: Status: Chronic Discharge Plan Disposition Patient Disposition: [facility] Condition: Stable Discharge Details Chief Complaint: RespSymp Reason For Visit: CHEST PAIN Admit Date/Time: 05/25/18 02:51 Admit Provider: Cristofer Rosenberg Attending Provider: Cristofer Rosenberg Primary Care Provider: Familia Mazariegos ED Provider: [facility] Course: CC: Chest Pain HPI: 78-year-old woman with a past medical history significant for Paroxysmal Afib on AC, Tachy/Jaquan Syndrome s/p PPM, and prior CAD with an 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 Mrs. Haynes had began developing pleuritic chest pain, reportedly with inspiration and cough, prior to presenting to the emergency room. She reported that her discomfort was different than when she had a cardiac event in the past. She also endorsed dyspnea with exertion. The patient had apparently developed upper respiratory symptoms over the 3 days prior to her admission, including cough and sore throat, along with discomfort in her right eye. She reported that her was recently ill with similar symptoms, as had other family members. Work-up in the emergency room was significant for lack of hypoxia, tachycardia, leukocytosis, or abnormality on CXR. Since her admission a subsequent urinalysis and influenza swab were also checked and negative. She has however had low grade fevers since her admission, with a TMax of 38 yesterday afternoon. At time of her admission the patient's troponin was normal, but following she had a minimal elevation at 0.07 prior to return to normal levels. She has also remained asymptomatic without recurrence of chest pain. Given her cardiac history and the fact that her revascularization was 25 years prior, a nuclear stress test was ordered and performed, now officially interpreted as with a potential inferior wall defect. This morning the patient is reporting vast improvement in her URI symptoms, right eye conjunctivitis, and states no further chest pain since prior to admission. No other events were reported overnight. Assessment and Plan (1) Chest pain: Atypical chest pain with minimal and equivocal rise in troponin prior to downtrending. Review of prior records indicate mild elevation of cardiac biomarkers in May of 2017 and July 2017 (Troponin 0.11 - 0.58) in setting of acute illness and Afib with RVR. This mild elevation may have been related to relative hypertension, with systolic values initially in the 180-220' s range. Given that patient's CABG was approximately 25 years prior a nuclear stress was obtained, and interpreted as positive for an inferior wall defect, but overall a poor study. Case was discussed with [facility] for potential diagnostic LHC, and patient was accepted - for transfer this afternoon. Of note, she has undergone a LHC in 2014 that was interpreted as negative for flow limiting lesions with patent grafts - report not currently available. Patient is not currently NPO. (2) URI (upper respiratory infection): Febrile upper respiratory illness - Potentially Viral. Rapid Flu, CXR and Urinalysis negative. Monitor symptoms and treat supportively. Patient also with evidence of conjunctivitis, currently on topical treatment. Reported illness in house hold with and other family members. improved without intervention. No evidence of bacterial infection by work-up, and patient appears vastly improved today. Conjunctivitis is better with topical Erythromycin as well. (3) Coronary artery disease: With atypical chest pain and abnormal stress as above. Continue ASA, high potency statin, and BB therapy, with prn NTG. Patient on chronic anticoagulation with Apixaban. For potential LHC at [facility]. (4) Hyperlipidemia: Continue statin therapy. (5) Conjunctivitis: Right eye - overall appears vastly improved. Continue Erythromycin, now day #3. (6) DM type 2, controlled, with complication: Home basal Insulin Detemir has been on hold as patient's blood sugars have ranged in the 100's for the majority of her stay. She was maintained on sliding scale coverage however. (7) Chronic atrial fibrillation: Paroxysmal, and currently in sinus with periods of atrial pacing. Continue BB. On anticoagulation with Apixaban. (8) Chronic kidney disease, stage III (moderate): Creatinine at baseline. Monitor, and avoid nephrotoxins. (9) Presence of permanent cardiac pacemaker: Secondary to history of Tachy/Jaquan Syndrome. 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 (11) Disposition To [facility] today. Home Meds and New Rx's Prescriptions: New erythromycin 5 mg/gram (0.5 %) Ointment 3.5 g OU TID 5 Days Qty: 24945 RF: 0 Continue tramadol 50 mg tablet 50 mg PO BID PRN (Reason: pain) Qty: 60 RF: 0 lorazepam 0.5 mg tablet 0.5 mg PO BID MDD 1 mg Qty: 56 RF: 2 lidocaine 5 % adhesive patch,medicated 1 patch TP DAILY Qty: 15 RF: 0 cyanocobalamin (vitamin B-12) 1,000 MCG tablet 1,000 mcg PO DAILY Qty: 90 RF: 3 cholecalciferol (vitamin D3) [Vitamin D3] 1,000 UNIT capsule 1,000 unit PO BID RF: 0 nitroglycerin [Nitrostat] 0.4 MG tablet, sublingual 0.4 mg Sublingual Q5 MIN PRN X3 PRNQty: 25 RF: 12 magnesium oxide 400 MG tablet 400 mg PO DAILY Qty: 250 RF: 6 Med Offloader Brace Qty: 1 RF: 0 Atorvastatin Calcium 10 MG tablet 10 mg PO DAILY Qty: 90 RF: 3 metoprolol succinate 100 MG tablet extended release 24 hr 150 mg PO DAILY Qty: 135 RF: 3 lamotrigine [Lamictal] 100 MG tablet 100 mg PO BID Qty: 180 RF: 3 insulin aspart U-100 [Novolog Flexpen U-100 Insulin] 100 UNIT/1 ML insulin pen 21 unit Sub-Q BID Qty: 2 RF: 4 apixaban [Eliquis] 5 MG tablet 5 mg PO BID 14 Days Qty: 28 RF: 0 lancets [FreeStyle Lancets] 1 EACH misc 1 ea Miscellaneous as directed Qty: 150 RF: 11 trazodone 50 MG tablet 50 mg PO HS 10 Days Qty: 10 RF: 0 gabapentin 300 mg capsule 300 mg PO as directed MDD 900 Qty: 15 RF: 0 losartan 25 mg tablet 25 mg PO BID 90 Days Qty: 180 RF: 2 blood-glucose meter [FreeStyle Lite Meter] kit .ROUTE .MEDSUPPLY Qty: 1 RF: 0 blood sugar diagnostic [Blood Glucose Test] strip 1 ea Miscellaneous AC & HS Qty: 120 RF: 3 insulin detemir U-100 [Levemir FlexTouch U-100 Insuln] 100 unit/mL (3 mL) insulin pen 21 unit subcut BID Qty: 4 RF: 3 pen needle, diabetic [Pen Needle] 31 gauge x /16 needle 1 ea Miscellaneous QID Qty: 100 RF: 11 fexofenadine [Aller-ease] 180 MG tablet 90 mg PO DAILY PRNRF: 0 acetaminophen [Tylenol] 325 MG tablet 650 mg PO Q4H PRN PRNQty: 0 RF: 0 aspirin [Aspirin Low-Strength] 81 MG tablet,chewable 81 mg PO DAILY RF: 0 Discharge Instructions Instructions: Chest Pain (ED) Referrals: Familia Mazariegos DO [Primary Care Provider] - Activity:: Ambulate with assistance Equipment/Supplies:: No Equipment Needed Diet:: Heart Healthy ADA Diet Discharge Orders Discharge Orders: Discharge Order (Routine); Ordered 05/27/18 Ordered By: Meliton Baldwin Exam Narrative Exam Narrative: General: Patient appears comfortable, AAOX3, NAD HEENT: Right eye with mild surrounding erythema, but improvement overall of edema and discharge Neck: Supple CV: Regular, nontachycardic, S1S2, No rubs, murmurs, or gallops. Anterior chest wall Pacemaker noted in place. Pulmonary: Clear to auscultation bilaterally, no crackles, wheezing, or rhonchi Abdomen: + Bowel Sounds, soft, nontender, nondistended Vascular: No lower extremity edema Psych: Normal mood and affect. DS: Data Vitals/I&O Vitals and I&O: Vital Signs Temperature 36.9 C 05/27/18 11:35 Temperature Source Tympanic 05/27/18 11:35 Pulse 67 05/27/18 11:35 Pulse Rhythm Regular 05/27/18 07:40 Pulse 67 05/25/18 03:31 Respiratory Rate 17 05/27/18 11:35 Respiratory Effort Non-Labored 05/27/18 07:40 Respiratory Depth Normal 05/27/18 07:40 Respiratory Pattern Normal 05/27/18 07:40 Blood Pressure 130/75 05/27/18 11:35 Blood Pressure Mean 104 05/25/18 03:31 Blood Pressure Position Sitting 05/24/18 22:50 Pulse Oximetry 98 05/27/18 11:35 Oxygen Delivery Method Room Air 05/27/18 11:35 Oxygen Flow Rate 0 05/27/18 11:35 Pain Level 0 05/27/18 11:35 Intake & Output 05/26/18 05/27/18 05/27/18 23:59 11:59 23:59 Intake Total 490 / 490 Output Total 950 / 950 775 / 775 Balance -950 / -950 -285 / -285 Weight 63.6 kg Intake: Oral 490 / 490 Output: Urine 950 / 950 775 / 775 Other: Urine Color Yellow Yellow Urine Appearance Clear Clear Urine Odor None Stool Size Large Moderate Stool Characteristics Liquid Soft Brown Brown Voiding Methods Toilet Toilet Completed studies during hospitalization [Text1]: Date of study: 05/25/2018 Impressions: Positive stress test after pharmacologic stress. Summary: 1. Myocardial perfusion imaging: There is a moderate sized, moderately intense, partially reversible defect involving the inferior and inferolateral wall(s). This suggests small myocardial infarction and small ischemia in the distribution of right coronary artery or the left circumflex coronary artery. 2. The calculated left ventricular ejection fraction after stress: 50%. LV global systolic function is normal. There is hypokinesis involving the inferior wall(s) of the left ventricle. 3. Stress ECG conclusions: The stress ECG is negative. 4. Baseline ECG: Nonspecific ST and T wave changes. Recommendations: Medical management is recommended. ---- Exam(s) a RAD:XR chest 2V PA & lateral SYMPTOMS/DIAGNOSIS: PLEURITIC CHEST PAIN, CONFUSED PA AND LATERAL CHEST: The heart is mildly enlarged. Note is made of prior sternotomy and there is a transvenous cardiac pacemaker in position. The lungs are clear. No pleural effusions seen. CONCLUSION: No evidence of acute disease. Labs on day of discharge: Labs from last 24 hours 05/27/18 05/27/18 06:55 06:55 WBC 6.80 RBC 3.65 L Hgb 11.9 L Hct 35.6 L MCV 97.5 H MCH 32.6 MCHC 33.4 RDW 12.6 Plt Count 124 L MPV 9.4 Immature Gran % 0.1 Neutrophils % 69.8 Lymphocytes % 16.6 Monocytes % 10.6 Eosinophils % 2.6 Basophils % 0.3 Absolute Neutrophils 4.74 Absolute Lymphocytes 1.13 L Absolute Monocytes 0.72 H Absolute Eosinophils 0.18 Absolute Basophils 0.02 Sodium 138 Potassium 3.7 Chloride 105 Carbon Dioxide 24.5 Anion Gap 8.5 BUN 18 D Creatinine 0.90 Estimated GFR/1.73 m2 >= 60.00 Glucose 135 H Calcium 9.7 Magnesium 1.7 L
--- NOTE | 2018-05-27 13:55 | PDOC.CMPRO ---
- If Service Date Differs Date of service: 05/27/18 Time of Service: 13:55 Care Management Progress Note S/O: Liliana was sitting in her chair with her , Ha, at bedside when CM visited this morning. She is engaged in conversation and is talkative. Liliana has conjunctivitis and is on droplet precautions for such. Her flu swab has come back negative. [facility] [place] and Liliana will transport there via EMS. Liliana is concerned about her , Ha, and how he will get [place] [facility] [place] Per nursing request, JOHNATHAN completed an updated HIPAA with Liliana which is now on file in her chart. A: 78 year old female admitted for chest pain. P: Liliana will transfer [place] [facility] [place] bed availability. CM will continue to offer support regarding discharge planning and disposition.
--- NOTE | 2018-05-27 14:00 | CMPROGNOTE_ITS ---
- If Service Date Differs Date of service: 05/27/18 Time of Service: 13:55 Care Management Progress Note S/O: Liliana was sitting in her chair with her , Ha, at bedside when CM visited this morning. She is engaged in conversation and is talkative. Liliana has conjunctivitis and is on droplet precautions for such. Her flu swab has come back negative. [facility] [place] [place] and Liliana will transport there via EMS. Liliana is concerned about her , Ha, and how he will get to [facility] [place]. Per nursing request, JOHNATHAN completed an updated HIPAA with Liliana which is now on file in her chart. A: 78 year old female admitted for chest pain. P: Liliana will transfer to [facility] via [place] pending bed availability. CM will continue to offer support regarding discharge planning and disposition.
--- NOTE | 2018-05-27 14:00 | PDOC.CMDIS ---
- If Service Date Differs Date of service: 05/27/18 Time of Service: 14:00 LACE Index Scoring Tool - Questions: Length of Stay (in days): 3 Acuity (Admit via E.D.?): Yes Comorbidities: Diabetes w/o Complication, Liver or Renal Disease E.D. Visits: 2 - Answers: Total Score: 13 Risk of Readmission: High Risk Care Management Discharge Reason for Hospitalization: Chest Pain Discharge Plan: Liliana will transfer to [facility] via ambulance when a bed becomes available. Patient/Family Education Needs: Discharge education, any limitations, and follow up plan of care. Ask Me Three discussion.
--- NOTE | 2018-05-27 14:03 | CMDISCH_ITS ---
- If Service Date Differs Date of service: 05/27/18 Time of Service: 14:00 LACE Index Scoring Tool - Questions: Length of Stay (in days): 3 Acuity (Admit via E.D.?): Yes Comorbidities: Diabetes w/o Complication, Liver or Renal Disease E.D. Visits: 2 - Answers: Total Score: 13 Risk of Readmission: High Risk Care Management Discharge Reason for Hospitalization: Chest Pain Discharge Plan: Liliana will transfer to [facility] [place] via [place] when a bed becomes available. Patient/Family Education Needs: Discharge education, any limitations, and follow up plan of care. Ask Me Three discussion.
[2018-05-27] MEDS: traMADol 50 MG TAB PO (14:05)
[2018-05-27 15:05] VITALS: PULSE 60
== END 2018-05-27 15:55 | disposition short-term general hospital (02) ==
LOC: ER 05-25 02:50 → MS 05-25 08:23
PROVIDERS: Student in an Organized Health Care Education/Training Program; Admitting Provider Family Medicine; Emergency Provider Physician Assistant; PCP Family Medicine; Visit Provider Internal Medicine
DX: R07.81 Pleurodynia (principal); R74.8 Abnormal levels of other serum enzymes; R50.9 Fever, unspecified; H10.31 Unspecified acute conjunctivitis, right eye; J06.9 Acute upper respiratory infection, unspecified; I25.10 Atherosclerotic heart disease of native coronary artery without angina pectoris; R94.39 Abnormal result of other cardiovascular function study; Z71.3 Dietary counseling and surveillance; I48.0 Paroxysmal atrial fibrillation; I47.2 Ventricular tachycardia; Z79.01 Long term (current) use of anticoagulants; I49.5 Sick sinus syndrome; Z95.0 Presence of cardiac pacemaker; I25.2 Old myocardial infarction; Z95.1 Presence of aortocoronary bypass graft; E78.5 Hyperlipidemia, unspecified; E11.22 Type 2 diabetes mellitus with diabetic chronic kidney disease; N18.3 Chronic kidney disease, stage 3 (moderate); F32.9 Major depressive disorder, single episode, unspecified; I10 Essential (primary) hypertension; E11.42 Type 2 diabetes mellitus with diabetic polyneuropathy
CPT/HCPCS: 36415; 78452; 80048; 80053; 85027; 87449; 93005; 99215; 99220; 99233; 99239; 99254; 99285; 71046; 81003; 81015; 83735; 84443; 84484; 85025; 85610; 85730; 93010; 93017; 99217; 99226; G0378; J2785; J3490

== ENCOUNTER → 2018-05-26 07:24 | Outpatient (BNVA) | payer MEDICARE, BC, SELFPAY | PROVIDERS: PCP Family Medicine; Visit Provider Student in an Organized Health Care Education/Training Program | DX: R69 Illness, unspecified (principal) ==

== ENCOUNTER 2018-09-01 01:13 | Outpatient (CLI) | payer MEDICARE, BC, SELFPAY ==
--- NOTE | 2018-09-01 15:00 | DIABASSESS_ITS ---
DESCRIPTION/ASSESSMENT: Liliana Haynes presents with her for diabetes self management reporting many hypoglycemia episodes especially fasting. She has completely stopped mealtime insulin over the past month because of the frequency of hypoglycemia episodes during the day as well. FOOD: Liliana is careful about her food some of the time, trying to make good decisions, however sometimes she will have pizza with sprite or fast food if they are on the road. She sometimes skips lunch. She reports a weight loss greater than 20 pounds over the past months without effort. MEDICATION: 20u Levemir twice daily; Novolog by correction scale which she is no longer taking. MONITORING: Liliana monitors her blood sugars when she remembers, sometimes before and sometimes after her meal. She has several hypoglycemic blood sugars over the past 2 weeks on her glucometer. Fasting blood sugar 55-102; pre-supper 77- 168 with one at 218 (likely after a meal). STRESS: Liliana always worries about her due to medical conditions. She sleeps poorly because of this. She also worried that her memory is not as good as it was. INTERVENTION: DSME is provided in the following AADE 7 areas based on patients interest and assessment of needs: Medication - discussed importance of decreasing basal insulin and recommends 20% decrease given her frequency of hypoglycemic episodes, many of which she does not feel. Monitoring - Liliana monitors her blood sugars during this visit and it is 52 without symptoms and sounding perfectly appropriate. After 30 grams carbohydrate blood sugar was 113 upon leaving. Risk: Reviewed hypoglycemia treatment and she continues to treat her low blood sugars appropriately. ACTION PLAN: Liliana will take 16units Levemir twice daily. She will monitor her blood sugar while her makes her coffee in the morning, and before supper when she remembers. She will keep her glucometer where she eats her meal. She will call if blood sugars are unusually high. We will f/u by telephone Wednesday. 09/05/18 Follow up telephone call: Fasting blood sugar 73 today; 79-114 fasting and 97-147 before supper. Discussed safe fasting blood sugar of 100mg/dl. She agrees to decrease Levemir to 14units morning and night. We will be in touch 09/08/18 to see results. SRIRAM Blancas, CDE Individual DSME/T __less than 30 minutes No DM group education series being offered at this time.
--- NOTE | 2018-10-06 10:46 | TELEFU_ITS ---
10/04/18 TC with Liliana Ivy as she did not show for her f/u appointment today. Follow up to assess blood sugar results with a decrease in basal insulin and no mealtime insulin. One week ago we had phone conversation where she related feeling lousy, had orange juice and ensure and held the night Levemir dose. Fasting blood sugar 118mg/dl. At that time suggested she take 6 units AM and PM. Fasting blood sugars 547=606 over the past week; bedtime blood sugar 107. She did have blood sugar of 218 after eating out including cheesecake. She report no appetite; 40 pound weight loss, fatigue. She is worried about her health and has stress related to her 's health. She relates her history of bypass surgery and heart condition. She states she does worry about her current symptoms being cancer but is not sure she wants to know. PLAN: She is comfortable continuing to take 6 units Levemir. She will call if blood sugars are elevated more than a few times. We will be in touch by telephone in 1 week. She is encouraged to bring her concerns to her HCP. Zuri Ramos, SRIRAM,CDE Please do not bill for this service.
--- NOTE | 2018-10-19 08:59 | TELEFU_ITS ---
09/17/18 TC to Liliana to assess her blood sugars in light of significant decrease in insulin over the past few months. She continues to take 6 units basal insulin AM and PM. She is not taking Novolog at this time. Fasting blood sugars 87-101; pre-supper blood sugars 105-185. She has not had hypoglycemia blood sugars since lowering insulin dosing. She remains concerned about her weight loss but expresses reassurance that some tests have come back negative. She is satisfied with her current self management plan. She will call if she has questions or concerns. Please do not bill for this service.
== END 2018-09-01 01:33 ==
PROVIDERS: PCP Family Medicine; Visit Provider Dietitian, Registered
DX: E11.9 Type 2 diabetes mellitus without complications (principal); Z79.4 Long term (current) use of insulin; Z71.3 Dietary counseling and surveillance

== ENCOUNTER 2018-10-03 09:08 | Outpatient (CLI) | payer MEDICARE, BC, SELFPAY ==
[2018-10-03 09:37] LABS: Absolute Basophil Count 0.01 k/cumm (0.0-0.2); Absolute Eosinophil Count 0.14 k/cumm (0.0-0.7); Absolute Monocyte Count 0.31 k/cumm (0.11-0.7); Absolute Neutrophil Count 2.51 k/cumm (1.2-6.7); Basophils % 0.2; Eosinophils % 3.4; HCT 40.2 % (36.0-46.0); HGB 13.1 g/dL (12.0-15.5); Lymphocytes % 28.8; Mean Corp. HGB Concentration 32.6 g/dL (32.0-36.0); Mean Corpuscular Hemoglobin 31.6 pg (27.0-33.0); Mean Corpuscular Volume 97.1 fL (80-95); Mean Platelet Volume 9.7 fL (8.0-11.0); Monocytes % 7.4; Neutrophils % 60.2; Platelet Count 119 x1000/uL (130-400); RBC 4.14 m/cumm (4.00-5.20); RBC Distribution Width 12.7 % (11.7-14.6); White Blood Cell Count 4.17 k/cumm (4.4-10.8)
[2018-10-03 10:36] LABS: ALT 28 U/L (12-78); AST 22 U/L (15-37); Albumin 4.1 g/dL (3.4-5.0); Alkaline Phosphatase 64 U/L (46-116); Anion Gap 9.3 mmol/L (3-11); BUN 21 mg/dL (7-18); Bilirubin, Total 0.5 mg/dL (0.2-1.0); CO2 30.7 mmol/L (21.0-32.0); CREATININE 0.97 mg/dL (0.55-1.02); Calcium 10.7 mg/dL (8.5-10.1); Chloride 104 mmol/L (98-107); Cholesterol 151 mg/dL (50-200); Estimated GFR 55.83 (mL/min/1.73m2); Glucose 101 mg/dL (70-100); HDL Cholesterol 55 mg/dL (40-60); LDL CHOLESTEROL 76 mg/dL (<100); Potassium 3.9 mmol/L (3.5-5.1); Sodium 144 mmol/L (136-145); Total Protein 7.5 g/dL (6.4-8.2); Triglyceride 114 mg/dL (30-150)
[2018-10-03 10:43] LABS: TSH (W/Ref FT4) 3.03 uIU/mL (0.358-3.74)
[2018-10-03 11:45] LABS: ESR 37 MM/HR (0-30)
== END 2018-10-03 09:28 ==
PROVIDERS: PCP Family Medicine; Visit Provider Family Medicine
DX: I25.10 Atherosclerotic heart disease of native coronary artery without angina pectoris (principal); R63.4 Abnormal weight loss
CPT/HCPCS: 36415; 80053; 80061; 83721; 85652; 84443; 85025

== ENCOUNTER → 2018-10-11 13:11 | Outpatient (BNVA) | payer MEDICARE, BC, SELFPAY | PROVIDERS: PCP Family Medicine; Visit Provider Nurse Practitioner Family | DX: I49.5 Sick sinus syndrome (principal); E78.5 Hyperlipidemia, unspecified; I25.10 Atherosclerotic heart disease of native coronary artery without angina pectoris; Z45.018 Encounter for adjustment and management of other part of cardiac pacemaker | CPT/HCPCS: 93288; 99214 ==

== ENCOUNTER 2018-10-14 02:24 | Outpatient (CLI) | payer MEDICARE, SELFPAY ==
--- NOTE | 2018-10-14 14:25 | DI.CT_ITS ---
SYMPTOMS/DIAGNOSIS: UNEXPLAINED WEIGHT LOSS, R63.4, UNPROVOKED COMPRESSION FRACTURE OF T11, ? METS THORACIC SPINE CT: CT examination of the thoracic spine was performed with intravenous infusion of 100 cc of Omnipaque 350. Images obtained through the upper abdomen show unremarkable appearance of visualized portions of kidneys, adrenals, liver, spleen and pancreas. No mediastinal mass or adenopathy seen. No evidence of pulmonary embolic disease and thoracic aorta shows no evidence of dissection or aneurysm. The lungs are grossly clear allowing for motion artifact. There is a minimal anterior compression fracture of the vertebral body of what appears to be T11. No other fracture identified in the thoracic region. No gross erosive or destructive lesions seen. No paraspinal mass identified. CONCLUSION: Minimal anterior compression fracture of T11 vertebral body. No other significant findings.
[2018-10-14 15:27] LABS: Anion Gap 7.1 mmol/L (3-11); BUN 18 mg/dL (7-18); CO2 29.9 mmol/L (21.0-32.0); CREATININE 0.92 mg/dL (0.55-1.02); Chloride 104 mmol/L (98-107); Estimated GFR 59.35 (mL/min/1.73m2); Glucose 112 mg/dL (70-100); Potassium 3.9 mmol/L (3.5-5.1); Sodium 141 mmol/L (136-145)
[2018-10-14] MEDS: Omnipaque 350 MG/ML 100 ML BTL IJ (15:59)
[2018-10-17 10:46] LABS: Prealbumin 24 mg/dL (20-40)
== END 2018-10-14 02:44 ==
PROVIDERS: PCP Family Medicine; Visit Provider Family Medicine
DX: R63.4 Abnormal weight loss (principal); M48.54XA Collapsed vertebra, not elsewhere classified, thoracic region, initial encounter for fracture
CPT/HCPCS: 80048; 84134; J3490

== ENCOUNTER 2018-11-01 16:00 | Emergency (ER) | payer MEDICARE, BC, SELFPAY ==
[2018-11-01] VITALS (32 sets, daily range): BP systolic 166–237; BP diastolic 77–174; PULSE 59–78; RESP 10–21; TEMP 37.7; O2SAT 98–100
--- NOTE | 2018-11-01 16:36 | DI.RAD_ITS ---
SYMPTOM/DIAGNOSIS: WT LOSS, COUGH PA AND LATERAL CHEST: The lungs are well expanded and free of infiltrate. There is no pleural effusion. The heart is not enlarged. Pacing wires are in stable position when compared with prior images. SUMMARY: No evidence of acute cardiopulmonary disease.
--- NOTE | 2018-11-01 16:36 | DI.CT_ITS ---
SYMPTOM/DIAGNOSIS: ABD BLOATING, WT LOSS, HYPERTENSION, HEADACHE NONCONTRAST HEAD CT: A noncontrast enhanced examination was performed. There is no evidence of an intra/extra-axial hemorrhage or mass. Atrophic changes consistent with age are demonstrated and there are findings consistent with small vessel disease. The ventricles are intact. There is no skull fracture. The sinuses are normal. There is no mastoid effusion. The soft tissues are unremarkable. SUMMARY: No evidence of an acute intracranial abnormality. ABDOMEN AND PELVIC CT; The study was carried out with an intravenous administration of 83 cc's of Omnipaque 350. No acute abnormality involving the lung bases is seen. There is a 6 mm. cyst in the right hepatic lobe. The liver is otherwise unremarkable. The gallbladder is unremarkable. There are no stones or ductal dilatation. The pancreas and spleen are normal. The adrenals are normal. The kidneys are normal. There is no evidence of bowel obstruction. Sigmoid diverticulosis is identified with no evidence of diverticulitis. There is nothing to suggest an acute appendix. The bladder is intact. The reproductive organs as visualized appear intact. A small quantity of free fluid is noted in the pelvis. Note is made of diffuse demineralization of the bony structures and a fracture of indeterminate age involving the superior endplate of T 11. The soft tissues are unremarkable. There is no aortic aneurysm. There is no lymphadenopathy. SUMMARY: No acute intra-abdominal or pelvic abnormality is seen. An age indeterminate compression fracture of the superior endplate of T 11 is identified.
--- NOTE | 2018-11-01 16:42 | ED.GENADUL_ITS ---
Discharge Plan Disposition Condition: Improving Discharge Details Chief Complaint: Headache Clinical Impression: Hypertension, Depression, Panic anxiety syndrome Primary Care Provider: Linn Paulino ED Provider: Kolby Zamora [place] Meds and New Rx's Prescriptions: New lorazepam [Ativan] 0.5 mg tablet 0.5 mg PO BID PRN (Reason: anxiety) Qty: 20 RF: 0 tramadol 50 mg tablet 50 mg PO BID PRN (Reason: pain) Qty: 20 RF: 0 Continued ibuprofen 800 mg tablet 800 mg PO TID PRN (Reason: gout attack) Qty: 30 RF: 0 lorazepam 0.5 mg tablet 0.5 mg PO BID MDD 1 mg Qty: 56 RF: 2 cyanocobalamin (vitamin B-12) 1,000 MCG tablet 1,000 mcg PO DAILY Qty: 90 RF: 3 cholecalciferol (vitamin D3) [Vitamin D3] 1,000 UNIT capsule 1,000 unit PO BID RF: 0 nitroglycerin [Nitrostat] 0.4 MG tablet, sublingual 0.4 mg Sublingual Q5 MIN PRN X3 PRNQty: 25 RF: 12 magnesium oxide 400 MG tablet 400 mg PO DAILY Qty: 250 RF: 6 pantoprazole 40 mg tablet,delayed release (DR/EC) 40 mg PO DAILY RF: 0 Eliquis 5 mg tablet 5 mg PO BID Qty: 180 RF: 3 aspirin [Aspirin Low-Strength] 81 mg tablet,chewable 81 mg PO DAILY Qty: 90 RF: 3 atorvastatin 40 mg tablet 40 mg PO DAILY Qty: 90 RF: 3 gabapentin 300 mg capsule 300 mg PO as directed MDD 900 Qty: 270 RF: 3 lamotrigine [Lamictal] 100 mg tablet 100 mg PO BID Qty: 180 RF: 3 lidocaine 5 % adhesive patch,medicated 1 patch TP DAILY Qty: 15 RF: 12 nystatin 100,000 unit/gram cream 1 applic TP BID Qty: 30 RF: 3 clindamycin HCl 150 mg capsule 600 mg PO ONCE Qty: 4 RF: 6 losartan 50 mg tablet 50 mg PO BID RF: 0 carvedilol 6.25 mg tablet 6.25 mg PO BID Qty: 180 RF: 3 acetaminophen [Tylenol] 325 MG tablet 650 mg PO Q4H PRN PRNQty: 0 RF: 0 No Action tramadol 50 mg tablet 50 mg PO BID MDD 100 mg PRN (Reason: pain) Qty: 60 RF: 0 Med Offloader Brace Qty: 1 RF: 0 blood-glucose meter [FreeStyle Lite Meter] kit .ROUTE .MEDSUPPLY Qty: 1 RF: 0 Blood Glucose Test strip 1 ea Miscellaneous AC & HS Qty: 120 RF: 3 lancets [FreeStyle Lancets] 28 gauge misc 1 ea Miscellaneous as directed Qty: 150 RF: 11 pen needle, diabetic [Pen Needle] 31 gauge x 5/16 needle 1 ea Miscellaneous QID Qty: 100 RF: 11 Discharge Instructions Instructions: Anxiety (ED) Additional Instructions: We will ask our care management team to contact the primary care office of Linn Reilly to ensure you have timely follow-up. Continue your regular medications. May use the prescribed Ativan as needed twice daily for anxiety. May use the tramadol, as prescribed as you have before if needed for pain. Please check your blood pressure once daily at the same time and record the daily blood pressures. Do your best to minimize stress and anxiety. Return for any acute concern. Discharge Data Discharge Date/Time-TO BE ENTERED AT DEPARTURE: 11/01/18 22:29 Medical Decision Making <Roshan Luis MD - Last Filed: 11/06/18 08:30> 78-year-old female presents from home with a number of complaints. One is of a headache and elevated blood pressure at home today. She also noted a 40 pound weight loss over months time. She is been frustrated with outpatient work-up of these. She states that this is led to her changing primary care physicians with new intake for primary care pending. Secondarily, she states that during her recent spring cleaning her Ativan and tramadol were misplaced and she is not been able to take them for approximately 1 week's time. States that she has been on these medications for years. She is hypertensive upon arrival approximately 230/97. Given her complaints, review of systems, the patient had IV access established, screening blood work obtained, referred for CT scan of the head, chest x-ray, CT scan of the abdomen and pelvis. Blood work reveals white blood cell count 6.8, hematocrit 40, platelets 121. Sodium 138, potassium 3.5, chloride 102, bicarb 25, BUN 18, creatinine 0.8. LFTs unremarkable. CT scan of the head, abdomen and pelvis without a significant acute findings. Chest x-ray without acute findings. At approximately 4 hours of care, patient commented that she had recurrent dull achy headache with nausea and jaw pain. I have added a troponin and given the patient Tylenol as well as antiemetic and lorazepam. I do feel that she has a great deal of anxiety, as well she has lost her Lorazepam and tramadol and is almost for sure demonstrating some mild withdrawal. I do feel she will require a bridge prescription for these medications while awaiting reestablishment of primary care with Linn Reilly. Patient's blood pressure is now corrected to 189/86. We will sign out to Dr. Zamora pending final troponin laboratory tests. Lab Data Lab results reviewed: Yes I reviewed the patient's lab results. Laboratory Results - last 24 hr 11/01/18 11/01/18 16:55 16:55 WBC 6.81 RBC 4.30 Hgb 13.7 Hct 40.7 MCV 94.7 MCH 31.9 MCHC 33.7 RDW 12.6 Plt Count 121 L MPV 9.6 Immature Gran % 0.1 Neutrophils % 68.1 Lymphocytes % 23.5 Monocytes % 7.0 Eosinophils % 1.2 Basophils % 0.1 Absolute Neutrophils 4.63 Absolute Lymphocytes 1.60 Absolute Monocytes 0.48 Absolute Eosinophils 0.08 Absolute Basophils 0.01 Sodium 138 Potassium 3.5 Chloride 102 Carbon Dioxide 25.9 Anion Gap 10.1 BUN 18 Creatinine 0.87 Estimated GFR/1.73 m2 >= 60.00 Glucose 112 H Calcium 10.2 H Total Bilirubin 0.4 AST 24 ALT 26 Alkaline Phosphatase 71 Total Protein 8.4 H Albumin 4.3 <Kolby Zamora MD - Last Filed: 11/01/18 22:33> Patient signed out to me simply to check on troponin which had been ordered at the end of her visit. This is negative. Patient will be discharged per Dr. Luis's instructions/prescriptions. Please see his note for the majority of the ED visit and work-up. HPI <Roshan Luis MD - Last Filed: 11/06/18 08:30> General Mode of arrival: ambulatory . Date/Time Provider Initiated Documentation: 11/01/18 16:01 . Limitations to Documentation: no limitations . Information obtained by: family . History of Present Illness 78 year old F presents to the emergency department with the chief complaint of Numerous complaints, headache and weight loss. Headache improving, described as moderate, Quality is described as aching, and is localized to the head. Patient reports no radiation. Patient started experiencing this hour(s) and it has been now resolved. No relieving factors improve symptom(s), No exacerbating factors reported . Patient notes other (Nausea, weight loss. Headache improving. With headache she had some photosensitivity). Patient did receive the following treatments prior to arrival, none Related Data Home Medications Medication Instructions Recorded Confirmed acetaminophen [Tylenol] 650 mg PO Q4H PRN PRN #0 tab 01/15/16 11/04/18 cyanocobalamin (vitamin B-12) 1,000 mcg PO DAILY #90 tab-cap 02/10/16 11/04/18 cholecalciferol (vitamin D3) 1,000 unit PO BID cap 10/05/16 11/04/18 [Vitamin D3] magnesium oxide 400 mg PO DAILY #250 tab-cap 11/09/16 11/04/18 nitroglycerin [Nitrostat] 0.4 mg SUBLINGUAL Q5 MIN PRN X3 11/09/16 11/04/18 PRN #25 tab.sl blood-glucose meter kit #1 each 04/13/18 11/04/18 pantoprazole 40 mg tablet,delayed 40 mg PO DAILY 06/10/18 11/04/18 release apixaban 5 mg tablet 5 mg PO BID #180 tab 07/19/18 11/04/18 aspirin 81 mg chewable tablet 81 mg PO DAILY #90 tab 07/19/18 11/04/18 atorvastatin 40 mg tablet 40 mg PO DAILY #90 tab 07/19/18 11/04/18 blood sugar diagnostic strips #120 strip 07/19/18 11/04/18 gabapentin 300 mg capsule 300 mg PO as directed #270 cap MDD 07/19/18 11/04/18 900 lamotrigine 100 mg tablet 100 mg PO BID #180 tab-cap 07/19/18 11/04/18 lancets 28 gauge #150 ea 07/19/18 11/04/18 lidocaine 5 % topical patch 1 patch TP DAILY #15 each 07/19/18 11/04/18 nystatin 100,000 unit/gram topical 1 applic TP BID #30 gm 07/19/18 11/04/18 cream pen needle, diabetic 31 gauge x #100 ndl 07/19/18 11/04/1811/24 clindamycin HCl 150 mg capsule 600 mg PO ONCE #4 cap 08/25/18 11/04/18 ibuprofen 800 mg tablet 800 mg PO TID PRN #30 tab 09/05/18 11/04/18 lorazepam 0.5 mg tablet 0.5 mg PO BID #56 tab MDD 1 mg 09/26/18 11/04/18 tramadol 50 mg tablet 50 mg PO BID PRN #60 tab MDD 100 mg 09/26/18 11/04/18 losartan 50 mg tablet 50 mg PO BID tab 09/27/18 11/04/18 carvedilol 6.25 mg tablet 6.25 mg PO BID #180 tab-cap 10/21/18 11/04/18 lorazepam [Ativan] 0.5 mg PO BID PRN #20 tab 11/01/18 11/04/18 tramadol 50 mg PO BID PRN #20 tab 11/01/18 11/04/18 Previous Rx's Medication Instructions Recorded acetaminophen [Tylenol] 650 mg PO Q4H PRN PRN #0 tab 01/15/16 blood-glucose meter kit #1 each 04/13/18 apixaban 5 mg tablet 5 mg PO BID #180 tab 07/19/18 aspirin 81 mg chewable tablet 81 mg PO DAILY #90 tab 07/19/18 atorvastatin 40 mg tablet 40 mg PO DAILY #90 tab 07/19/18 blood sugar diagnostic strips #120 strip 07/19/18 gabapentin 300 mg capsule 300 mg PO as directed #270 cap MDD 07/19/18 900 lamotrigine 100 mg tablet 100 mg PO BID #180 tab-cap 07/19/18 lancets 28 gauge #150 ea 07/19/18 lidocaine 5 % topical patch 1 patch TP DAILY #15 each 07/19/18 nystatin 100,000 unit/gram topical 1 applic TP BID #30 gm 07/19/18 cream pen needle, diabetic 31 gauge x #100 ndl 07/19/1811/24 clindamycin HCl 150 mg capsule 600 mg PO ONCE #4 cap 08/25/18 ibuprofen 800 mg tablet 800 mg PO TID PRN #30 tab 09/05/18 lorazepam 0.5 mg tablet 0.5 mg PO BID #56 tab MDD 1 mg 09/26/18 tramadol 50 mg tablet 50 mg PO BID PRN #60 tab MDD 100 mg 09/26/18 carvedilol 6.25 mg tablet 6.25 mg PO BID #180 tab-cap 10/21/18 lorazepam [Ativan] 0.5 mg PO BID PRN #20 tab 11/01/18 tramadol 50 mg PO BID PRN #20 tab 11/01/18 Allergies Allergy/AdvReac Type Severity Reaction Status Date / Time nifedipine Allergy Mild Hives Verified 11/04/18 11:20 amiodarone AdvReac Severe tremor Verified 11/04/18 11:20 oxycodone AdvReac Severe heavy Verified 11/04/18 11:20 sedation amoxicillin AdvReac Intermediate sore Verified 11/04/18 11:20 burning mouth Anesthetics - Amide Type AdvReac Intermediate anxious Verified 11/04/18 11:20 diazepam AdvReac Intermediate Agitation Verified 11/04/18 11:20 indomethacin AdvReac Intermediate headache, Verified 11/04/18 11:20 flush metformin AdvReac Intermediate Diarrhea Verified 11/04/18 11:20 General Stated Complaint: Headache ANASTACIA: 3 Review of Systems <Roshan Luis MD - Last Filed: 11/06/18 08:30> Review of Systems Patient states during recent housecleaning she misplaced her Ativan and tramadol. She has had a 40 pound weight loss over 3+ months time. She had a dry cough. Today she had a headache and elevated blood pressure at home. Positive anxiety. 8 systems reviewed and otherwise neg PFSH <Roshan Luis MD - Last Filed: 11/06/18 08:30> Medical History Unexplained weight loss (Chronic) Chronic pain (Chronic) Keratosis (Chronic 09/01/13) Chronic cough (Chronic 04/18/15) Abscess of left thigh (Resolved 10/05/16) Essential tremor (Chronic 04/02/08) Mid back pain (Resolved) Sleeping difficulty (Chronic 07/01/15) Primary osteoarthritis of right knee (Chronic 08/24/16) Panic anxiety syndrome (Chronic 03/20/14) Pacemaker (Chronic 09/05/15) Hyperlipidemia (Chronic 08/17/11) Generalized atherosclerosis (Chronic 08/17/11) Gouty arthropathy, unspecified (Chronic 08/17/11) Frequent falls (Chronic 04/05/17) Essential hypertension (Chronic 08/17/11) Diabetic neuropathy (Chronic 03/07/15) Depressive disorder (Chronic 08/17/11) DM type 2, controlled, with complication (Chronic) Chronic nonalcoholic liver disease (Chronic 08/17/11) Chronic atrial fibrillation (Chronic 11/19/15) Chronic kidney disease, stage III (moderate) (Chronic 08/17/11) Anticoagulation adequate (Chronic 05/12/10) Presence of permanent cardiac pacemaker (Chronic) Coronary artery disease (Chronic) Hypertension (Chronic) 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 Sister No problems noted. Social History Smoking/Tobacco Use Status: Never Second Hand Exposure: No Alcohol Intake: never Drug use: Never Substance use type: does not use Adopted: No (raised by Aunt and Uncle) Caregiver/Support person: Yes (youngest daughter: Jacquelyn Chavira is healthcare agent ph:[phone]) Foster care: No Household members: spouse Housing: house Number of Children: 4 What is your relationship status?: Panel score (0-1 are the most socially isolated patients): 1 What type of physical activity do you participate in: none Shasta/Restorationist: [employer] Orthodox Seatbelt use: always Drive intox or ride w/intox oil truck driver: No Water heater temp set <120 deg: Yes Working smoke detector in home: Yes Fire extinguisher in home: Yes Carbon monox detector in home: Yes Firearms in home: Yes Do you feel safe in your relationship?: Yes Additional Social history: Sees [employer] and [employer]. History History 5 Para Hx # Term Pregnancies 4 Multiple births Hx # Pregnancies Ectopic pregnancies AB induced Hx Number of Living Children AB spontaneous Exam <Roshan Luis MD - Last Filed: 11/06/18 08:30> Narrative Exam Narrative: GEN: awake, alert, oriented 3. Pleasant, well groomed, interactive. HEAD: Normocephalic, atraumatic ENT: Mucous membranes moist, oropharynx unremarkable, External ear exam unremarkable EYES: PERRL, EOMI NECK: Full ROM, no SHAGGY, no menigismus CHEST/RESP: Nontender, clear to auscultation bilateral, no wheeze/rhonchi/rales CARDIOVASCULAR: RRR, no murmur, rub criselda. 2+ Rad pulse bilateral ABDOMEN: Soft, nontender, no mass. +Bowel sounds EXT: Full ROM, no edema, no rash Neuro: Grossly normal neurologic exam, conversant, interactive. Psych: Speech fluent, thoughts congruent, affect anxious Course <Roshan Luis MD - Last Filed: 11/06/18 08:30> Vital Signs Temperature 37.7 C H 11/01/18 16:06 Pulse 71 11/01/18 16:06 Respiratory Rate 16 11/01/18 16:06 Blood Pressure 237/97 H 11/01/18 16:06 Pulse Oximetry 98 11/01/18 16:06 Temperature 37.7 C H 11/01/18 16:06 Temperature Source Skin 11/01/18 16:06 Pulse 71 11/01/18 16:06 Respiratory Rate 16 11/01/18 16:06 Respiratory Effort Non-Labored 11/01/18 16:10 Blood Pressure 237/97 H 11/01/18 16:06 Pulse Oximetry 98 11/01/18 16:06 Pain Level 5 11/01/18 16:06 Sign Out <Roshan Luis MD - Last Filed: 11/06/18 08:30> Sign Out Data: Sign Out Comment: followup troponin Last updated by Roshan Luis MD at 11/01/18 20:38
[2018-11-01] MEDS: LORazepam 2 MG/ML VIAL 0.5 MG IVP (17:01)
[2018-11-01 17:11] LABS: Abs Immature Grans 0.01 k/cumm (0.0-0.09); Absolute Basophil Count 0.01 k/cumm (0.0-0.2); Absolute Eosinophil Count 0.08 k/cumm (0.0-0.7); Absolute Monocyte Count 0.48 k/cumm (0.11-0.7); Absolute Neutrophil Count 4.63 k/cumm (1.2-6.7); Basophils % 0.1; Eosinophils % 1.2; HCT 40.7 % (36.0-46.0); HGB 13.7 g/dL (12.0-15.5); Immature Grans % 0.1; Lymphocytes % 23.5; Mean Corp. HGB Concentration 33.7 g/dL (32.0-36.0); Mean Corpuscular Hemoglobin 31.9 pg (27.0-33.0); Mean Corpuscular Volume 94.7 fL (80-95); Mean Platelet Volume 9.6 fL (8.0-11.0); Neutrophils % 68.1; Platelet Count 121 x1000/uL (130-400); RBC Distribution Width 12.6 % (11.7-14.6); White Blood Cell Count 6.81 k/cumm (4.4-10.8)
[2018-11-01 17:22] LABS: ALT 26 U/L (12-78); AST 24 U/L (15-37); Albumin 4.3 g/dL (3.4-5.0); Alkaline Phosphatase 71 U/L (46-116); Anion Gap 10.1 mmol/L (3-11); BUN 18 mg/dL (7-18); Bilirubin, Total 0.4 mg/dL (0.2-1.0); CO2 25.9 mmol/L (21.0-32.0); CREATININE 0.87 mg/dL (0.55-1.02); Calcium 10.2 mg/dL (8.5-10.1); Chloride 102 mmol/L (98-107); Glucose 112 mg/dL (70-100); Potassium 3.5 mmol/L (3.5-5.1); Sodium 138 mmol/L (136-145); Total Protein 8.4 g/dL (6.4-8.2)
--- NOTE | 2018-11-01 18:38 | DI.VRAD_ITS ---
EXAM: CT Head Without Contrast EXAM DATE/TIME: 11/01/2018 4:39 PM CLINICAL HISTORY: 78 years old, female; Signs and symptoms; Other: Hypertension \T\ headache TECHNIQUE: Imaging protocol: Axial computed tomography images of the head/brain without contrast. Coronal and sagittal reformatted images were created and reviewed. Radiation optimization: All CT scans at this facility use at least one of these dose optimization techniques: automated exposure control; mA and/or kV adjustment per patient size (includes targeted exams where dose is matched to clinical indication); or iterative reconstruction. COMPARISON: CT HEAD WITHOUT CONTRAST 08/08/2017 3:43 PM FINDINGS: Brain: The etienne-white differentiation is maintained. No hemorrhage. No edema. There are mild periventricular and subcortical lucencies consistent with chronic microvascular ischemic changes. Ventricles: Ventricles and sulci are prominent consistent with age appropriate parenchymal volume loss. Bones/joints: Unremarkable. No acute fracture. Sinuses: Visualized sinuses are unremarkable. No acute sinusitis. Mastoid air cells: Visualized mastoid air cells are unremarkable. No mastoid effusion. Soft tissues: Unremarkable. IMPRESSION: No acute intracranial abnormality. Chronic microvascular ischemic changes. Dictated and Authenticated by: Narayan Lindquist MD. Ordering:BRITTANY Islas MD
--- NOTE | 2018-11-01 18:58 | DI.VRAD_ITS ---
EXAM: CT Abdomen and Pelvis With Contrast EXAM DATE/TIME: 11/01/2018 4:39 PM CLINICAL HISTORY: 78 years old, female; Signs and symptoms; Other: Abd bloating, weight loss TECHNIQUE: Imaging protocol: Axial computed tomography images of the abdomen and pelvis with intravenous contrast. Coronal and sagittal reformatted images were created and reviewed. Radiation optimization: All CT scans at this facility use at least one of these dose optimization techniques: automated exposure control; mA and/or kV adjustment per patient size (includes targeted exams where dose is matched to clinical indication); or iterative reconstruction. Contrast material: OMNIPAQUE 350; Contrast volume: 83 ml; Contrast route: IV; COMPARISON: CR PELVIS AP 05/12/2017 9:29 AM FINDINGS: Tubes, catheters and devices: Pacemaker wires. Lungs: Atherosclerotic calcification of the abdominal aorta and bilateral iliac basilar superior ABDOMEN: Liver: 6 mm cyst in the right hepatic lobe. Gallbladder and bile ducts: Normal. No calcified stones. No ductal dilation. Pancreas: Normal. No ductal dilation. Spleen: Normal. No splenomegaly. Adrenals: Normal. No mass. Kidneys and ureters: Normal. No hydronephrosis. Stomach and bowel: Diverticulosis of the sigmoid colon. Appendix: No evidence of appendicitis. PELVIS: Bladder: Unremarkable as visualized. Reproductive: Unremarkable as visualized. ABDOMEN and PELVIS: Intraperitoneal space: Small amount of free fluid in the pelvis. Bones/joints: Diffuse demineralization of the bones. Age indeterminate compression fracture of superior endplate of T11 vertebra. Soft tissues: Unremarkable. Vasculature: Normal. No abdominal aortic aneurysm. Lymph nodes: Normal. No enlarged lymph nodes. IMPRESSION: No acute abdominal or pelvic abnormality. Age-indeterminate compression fracture of superior endplate of T11 vertebra. Dictated and Authenticated by: Narayan Lindquist MD. Ordering:BRITTANY Islas MD
--- NOTE | 2018-11-01 19:00 | DI.VRAD_ITS ---
EXAM: XR Chest, 2 Views EXAM DATE/TIME: 11/01/2018 4:39 PM CLINICAL HISTORY: 78 years old, female; Signs and symptoms; Other: Weight loss, cough TECHNIQUE: Imaging protocol: XR of the chest, 2 views. COMPARISON: CR XR CHEST 2V PA LATERAL 05/24/2018 11:14 PM FINDINGS: Tubes, catheters and devices: Left approach dual lead pacemaker. Lungs: Unremarkable. No consolidation. Pleural space: Unremarkable. No pleural effusion. No pneumothorax. Heart/Mediastinum: Unremarkable. No cardiomegaly. Vasculature: Atherosclerotic calcification of the aortic arch. Bones/joints: Degenerative changes of the spine. IMPRESSION: No acute abnormality. Dictated and Authenticated by: Narayan Lindquist MD. Ordering:BRITTANY Islas MD
[2018-11-01] MEDS: traMADol 50 MG TAB PO ×2 (19:07→22:21)
[2018-11-01] MEDS: LORazepam 0.5 MG TAB PO ×2 (20:34→22:22)
[2018-11-01] MEDS: Acetaminophen 500 MG TAB 1000 MG PO (20:35)
[2018-11-01] MEDS: Ondansetron 4 MG/2 ML VIAL IVP (20:39)
[2018-11-01 22:03] LABS: Troponin I 0.03 ng/mL (0.00-0.06)
--- NOTE | 2018-11-02 09:09 | NUR.NOTE ---
Nursing Note: Faxed referral to [facility] to move patient appointment up. Julissa Oconnor.
== END 2018-11-01 22:29 ==
PROVIDERS: Emergency Medicine; Emergency Provider Emergency Medicine; PCP Nurse Practitioner Adult Health
DX: F41.0 Panic disorder [episodic paroxysmal anxiety] (principal); F41.8 Other specified anxiety disorders; I10 Essential (primary) hypertension
CPT/HCPCS: 36415; 80053; 96374; 96376; 99284; 70450; 71046; 74177; 84484; 85025; J2060; J2405

== ENCOUNTER 2018-11-10 11:09 | Outpatient (CLI) | payer MEDICARE, BC, SELFPAY ==
[2018-11-10 12:56] LABS: Vitamin B12 > 2000 pg/mL (193-986)
== END 2018-11-10 11:29 ==
PROVIDERS: PCP Nurse Practitioner Adult Health; Visit Provider Nurse Practitioner Adult Health
DX: R53.83 Other fatigue (principal); R63.4 Abnormal weight loss
CPT/HCPCS: 82607

== ENCOUNTER 2018-11-10 11:54 | Outpatient (REF) | payer MEDICARE, BC, SELFPAY ==
[2018-11-10 14:02] LABS: Vitamin B12 > 2000 pg/mL (193-986)
== END 2018-11-10 12:14 ==
LOC: LBN 11:54
PROVIDERS: PCP Nurse Practitioner Adult Health; Visit Provider Nurse Practitioner Adult Health
DX: R63.4 Abnormal weight loss (principal); R53.83 Other fatigue
CPT/HCPCS: 82607

== ENCOUNTER 2018-11-12 15:42 | Emergency (ER) | payer MEDICARE, BC, SELFPAY ==
[2018-11-12 15:47] VITALS: BP 150/76; PULSE 67; RESP 18; TEMP 36.7; O2SAT 98
--- NOTE | 2018-11-12 15:57 | W.ED.GENAD ---
Discharge Plan Disposition Patient Disposition: HOME Condition: Stable Discharge Details Chief Complaint: EyeProblem Clinical Impression: Corneal abrasion, right Primary Care Provider: Linn Paulino ED Provider: Randolph Cid [place] Meds and New Rx's Prescriptions: New erythromycin 5 mg/gram (0.5 %) ointment 1.25 cm OP TID 5 Days Qty: 3.5 RF: 0 Continued mirtazapine 7.5 mg tablet 7.5 mg PO DAILY Qty: 30 RF: 1 losartan 50 mg tablet 50 mg PO DAILY RF: 0 lorazepam 0.5 mg tablet 0.5 mg PO BID MDD 1 mg Qty: 56 RF: 0 tramadol 50 mg tablet 25 mg PO BID MDD 50mg PRN (Reason: pain) Qty: 28 RF: 0 ibuprofen 800 mg tablet 800 mg PO TID PRN (Reason: gout attack) Qty: 30 RF: 0 cyanocobalamin (vitamin B-12) 1,000 MCG tablet 1,000 mcg PO DAILY Qty: 90 RF: 3 cholecalciferol (vitamin D3) [Vitamin D3] 1,000 UNIT capsule 1,000 unit PO BID RF: 0 nitroglycerin [Nitrostat] 0.4 MG tablet, sublingual 0.4 mg Sublingual Q5 MIN PRN X3 PRNQty: 25 RF: 12 magnesium oxide 400 MG tablet 400 mg PO DAILY Qty: 250 RF: 6 Med Offloader Brace Qty: 1 RF: 0 blood-glucose meter [FreeStyle Lite Meter] kit .ROUTE .MEDSUPPLY Qty: 1 RF: 0 pantoprazole 40 mg tablet,delayed release (DR/EC) 40 mg PO DAILY RF: 0 Eliquis 5 mg tablet 5 mg PO BID Qty: 180 RF: 3 aspirin [Aspirin Low-Strength] 81 mg tablet,chewable 81 mg PO DAILY Qty: 90 RF: 3 atorvastatin 40 mg tablet 40 mg PO DAILY Qty: 90 RF: 3 Blood Glucose Test strip 1 ea Miscellaneous AC & HS Qty: 120 RF: 3 gabapentin 300 mg capsule 300 mg PO as directed MDD 900 Qty: 270 RF: 3 lamotrigine [Lamictal] 100 mg tablet 100 mg PO BID Qty: 180 RF: 3 lancets [FreeStyle Lancets] 28 gauge misc 1 ea Miscellaneous as directed Qty: 150 RF: 11 lidocaine 5 % adhesive patch,medicated 1 patch TP DAILY Qty: 15 RF: 12 nystatin 100,000 unit/gram cream 1 applic TP BID Qty: 30 RF: 3 pen needle, diabetic [Pen Needle] 31 gauge x 11/24 needle 1 ea Miscellaneous QID Qty: 100 RF: 11 clindamycin HCl 150 mg capsule 600 mg PO ONCE Qty: 4 RF: 6 carvedilol 6.25 mg tablet 6.25 mg PO BID Qty: 180 RF: 3 acyclovir 400 mg tablet 400 mg PO TID Qty: 21 RF: 0 acetaminophen [Tylenol] 325 MG tablet 650 mg PO Q4H PRN PRNQty: 0 RF: 0 Discharge Instructions Instructions: Corneal Abrasion (ED) Medical Decision Making 78 yo female states she was raking and started to walk and a branch hit her in the right eye. Dneies loc or falling. Has pain in the 9 olock position of the conjunctiva with small area of conjunctival injection. Perrl, eomi without pain. No foreign body on exam. had relief of pain with installation of tetracaine. On flourescein staining has a small 1mm corneal abrasion, negative sandi's sign and no findings to suggest globe rupture. no deep eye pain and eomi without pain so doubt retrobulbar hematoma. Will start abx ointment and have her f/u with her mental health program specialist at [facility] Differential Diagnosis corneal abrasion, conjunctivitis HPI General Mode of arrival: ambulatory. Date/Time Provider Initiated Documentation: 11/12/18 15:42. Limitations to Documentation: no limitations. Information obtained by: patient. History of Present Illness 78 year old F presents to the emergency department with the chief complaint of right eye pain, described as moderate, Quality is described as aching, Patient started experiencing this hour(s) (1) and it has been constant. No relieving factors improve symptom(s), No exacerbating factors reported . Patient did receive the following treatments prior to arrival, none Related Data Home Medications Medication Instructions Recorded Confirmed acetaminophen [Tylenol] 650 mg PO Q4H PRN PRN #0 tab 01/15/16 11/12/18 cyanocobalamin (vitamin B-12) 1,000 mcg PO DAILY #90 tab-cap 02/10/16 11/12/18 cholecalciferol (vitamin D3) 1,000 unit PO BID cap 10/05/16 11/12/18 [Vitamin D3] magnesium oxide 400 mg PO DAILY #250 tab-cap 11/09/16 11/12/18 nitroglycerin [Nitrostat] 0.4 mg SUBLINGUAL Q5 MIN PRN X3 11/09/16 11/12/18 PRN #25 tab.sl blood-glucose meter kit #1 each 04/13/18 11/10/18 pantoprazole 40 mg tablet,delayed 40 mg PO DAILY 06/10/18 11/12/18 release apixaban 5 mg tablet 5 mg PO BID #180 tab 07/19/18 11/12/18 aspirin 81 mg chewable tablet 81 mg PO DAILY #90 tab 07/19/18 11/12/18 atorvastatin 40 mg tablet 40 mg PO DAILY #90 tab 07/19/18 11/12/18 blood sugar diagnostic strips #120 strip 07/19/18 11/10/18 gabapentin 300 mg capsule 300 mg PO as directed #270 cap MDD 07/19/18 11/12/18 900 lamotrigine 100 mg tablet 100 mg PO BID #180 tab-cap 07/19/18 11/12/18 lancets 28 gauge #150 ea 07/19/18 11/10/18 lidocaine 5 % topical patch 1 patch TP DAILY #15 each 07/19/18 11/12/18 nystatin 100,000 unit/gram topical 1 applic TP BID #30 gm 07/19/18 11/12/18 cream pen needle, diabetic 31 gauge x #100 ndl 07/19/18 11/10/1811/24 clindamycin HCl 150 mg capsule 600 mg PO ONCE #4 cap 08/25/18 11/12/18 ibuprofen 800 mg tablet 800 mg PO TID PRN #30 tab 09/05/18 11/12/18 carvedilol 6.25 mg tablet 6.25 mg PO BID #180 tab-cap 10/21/18 11/12/18 acyclovir 400 mg tablet 400 mg PO TID #21 tab 11/07/18 11/12/18 lorazepam 0.5 mg tablet 0.5 mg PO BID #56 tab MDD 1 mg 11/10/18 11/12/18 losartan 50 mg tablet 50 mg PO DAILY tab 11/10/18 11/12/18 mirtazapine 7.5 mg tablet 7.5 mg PO DAILY #30 tab 11/10/18 11/12/18 tramadol 50 mg tablet 25 mg PO BID PRN #28 tab MDD 50mg 11/10/18 11/12/18 erythromycin 1.25 cm OP TID 5 Days #3.5 gm 11/12/18 Previous Rx's Medication Instructions Recorded acetaminophen [Tylenol] 650 mg PO Q4H PRN PRN #0 tab 01/15/16 blood-glucose meter kit #1 each 04/13/18 apixaban 5 mg tablet 5 mg PO BID #180 tab 07/19/18 aspirin 81 mg chewable tablet 81 mg PO DAILY #90 tab 07/19/18 atorvastatin 40 mg tablet 40 mg PO DAILY #90 tab 07/19/18 blood sugar diagnostic strips #120 strip 07/19/18 gabapentin 300 mg capsule 300 mg PO as directed #270 cap MDD 07/19/18 900 lamotrigine 100 mg tablet 100 mg PO BID #180 tab-cap 07/19/18 lancets 28 gauge #150 ea 07/19/18 lidocaine 5 % topical patch 1 patch TP DAILY #15 each 07/19/18 nystatin 100,000 unit/gram topical 1 applic TP BID #30 gm 07/19/18 cream pen needle, diabetic 31 gauge x #100 ndl 07/19/1811/24 clindamycin HCl 150 mg capsule 600 mg PO ONCE #4 cap 08/25/18 ibuprofen 800 mg tablet 800 mg PO TID PRN #30 tab 09/05/18 carvedilol 6.25 mg tablet 6.25 mg PO BID #180 tab-cap 10/21/18 acyclovir 400 mg tablet 400 mg PO TID #21 tab 11/07/18 lorazepam 0.5 mg tablet 0.5 mg PO BID #56 tab MDD 1 mg 11/10/18 mirtazapine 7.5 mg tablet 7.5 mg PO DAILY #30 tab 11/10/18 tramadol 50 mg tablet 25 mg PO BID PRN #28 tab MDD 50mg 11/10/18 erythromycin 1.25 cm OP TID 5 Days #3.5 gm 11/12/18 Allergies Allergy/AdvReac Type Severity Reaction Status Date / Time nifedipine Allergy Mild Hives Verified 11/10/18 09:50 amiodarone AdvReac Severe tremor Verified 11/10/18 09:50 oxycodone AdvReac Severe heavy Verified 11/10/18 09:50 sedation amoxicillin AdvReac Intermediate sore Verified 11/10/18 09:50 burning mouth Anesthetics - Amide Type AdvReac Intermediate anxious Verified 11/10/18 09:50 diazepam AdvReac Intermediate Agitation Verified 11/10/18 09:50 indomethacin AdvReac Intermediate headache, Verified 11/10/18 09:50 flush metformin AdvReac Intermediate Diarrhea Verified 11/10/18 09:50 General Stated Complaint: EyeProblem ANASTACIA: 4 Review of Systems Review of Systems All systems reviewed & are unremarkable except as noted in HPI and below Constitutional Denies chills, Denies fever(s) and Denies weakness ENT Denies change in voice Cardiovascular Denies chest pain and Denies dyspnea Respiratory Denies cough and Denies dyspnea Gastrointestinal Denies abdominal pain, Denies nausea and Denies vomiting Integumentary/Breasts Denies rash Neurologic Denies weakness [facility] Medical History Unexplained weight loss (Chronic) Chronic pain (Chronic) Keratosis (Chronic 09/01/13) Chronic cough (Chronic 04/18/15) Abscess of left thigh (Resolved 10/05/16) Essential tremor (Chronic 04/02/08) Mid back pain (Resolved) Sleeping difficulty (Chronic 07/01/15) Primary osteoarthritis of right knee (Chronic 08/24/16) Panic anxiety syndrome (Chronic 03/20/14) Pacemaker (Chronic 09/05/15) Hyperlipidemia (Chronic 08/17/11) Generalized atherosclerosis (Chronic 08/17/11) Gouty arthropathy, unspecified (Chronic 08/17/11) Frequent falls (Chronic 04/05/17) Essential hypertension (Chronic 08/17/11) Diabetic neuropathy (Chronic 03/07/15) Depressive disorder (Chronic 08/17/11) DM type 2, controlled, with complication (Chronic) Chronic nonalcoholic liver disease (Chronic 08/17/11) Chronic atrial fibrillation (Chronic 11/19/15) Chronic kidney disease, stage III (moderate) (Chronic 08/17/11) Anticoagulation adequate (Chronic 05/12/10) Presence of permanent cardiac pacemaker (Chronic) Coronary artery disease (Chronic) Hypertension (Chronic) 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 Sister No problems noted. 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 History History 5 Para Hx # Term Pregnancies 4 Multiple births Hx # Pregnancies Ectopic pregnancies AB induced Hx Number of Living Children AB spontaneous Exam Const General: no acute distress Orientation: alert HENMT Head: normal to inspection Ears: external ears normal General nose exam: external nose normal Mouth: moist mucous membranes Eyes Eyelids: eyelids normal Neck Neck: normal visual inspection Resp Effort & Inspection: normal respiratory effort and able to speak in complete sentences Cardio Rate: regular rate Skin General skin exam: no rashes or lesions noted Neuro General: alert and oriented x3 Extrem General: normal to inspection Psych Mental Status: mental status grossly normal Course Vital Signs Temperature 36.7 C 11/12/18 15:47 Pulse 67 11/12/18 15:47 Respiratory Rate 18 11/12/18 15:47 Blood Pressure 150/76 H 11/12/18 15:47 Pulse Oximetry 98 11/12/18 15:47 Temperature 36.7 C 11/12/18 15:47 Temperature Source Temporal Artery Scan 11/12/18 15:47 Pulse 67 11/12/18 15:47 Respiratory Rate 18 11/12/18 15:47 Blood Pressure 150/76 H 11/12/18 15:47 Pulse Oximetry 98 11/12/18 15:47 Oxygen Delivery Method Room Air 11/12/18 15:47 Oxygen Flow Rate 0 11/12/18 15:47 Pain Level 5 11/12/18 15:47
[2018-11-12] MEDS: Balanced Salt Solution 15 ML BTL (15:58)
[2018-11-12] MEDS: Tetracaine 0.5% 4 ML BTL (15:59)
[2018-11-12] MEDS: Fluorescein STRIPS 100/BOX 1 MG (15:59)
--- NOTE | 2018-11-12 16:03 | ED.GENADUL_ITS ---
Discharge Plan Disposition Patient Disposition: HOME Condition: Stable Discharge Details Chief Complaint: EyeProblem Clinical Impression: Corneal abrasion, right Primary Care Provider: Linn Paulino ED Provider: Randolph Cid [place] Meds and New Rx's Prescriptions: New erythromycin 5 mg/gram (0.5 %) ointment 1.25 cm OP TID 5 Days Qty: 3.5 RF: 0 Continued mirtazapine 7.5 mg tablet 7.5 mg PO DAILY Qty: 30 RF: 1 losartan 50 mg tablet 50 mg PO DAILY RF: 0 lorazepam 0.5 mg tablet 0.5 mg PO BID MDD 1 mg Qty: 56 RF: 0 tramadol 50 mg tablet 25 mg PO BID MDD 50mg PRN (Reason: pain) Qty: 28 RF: 0 ibuprofen 800 mg tablet 800 mg PO TID PRN (Reason: gout attack) Qty: 30 RF: 0 cyanocobalamin (vitamin B-12) 1,000 MCG tablet 1,000 mcg PO DAILY Qty: 90 RF: 3 cholecalciferol (vitamin D3) [Vitamin D3] 1,000 UNIT capsule 1,000 unit PO BID RF: 0 nitroglycerin [Nitrostat] 0.4 MG tablet, sublingual 0.4 mg Sublingual Q5 MIN PRN X3 PRNQty: 25 RF: 12 magnesium oxide 400 MG tablet 400 mg PO DAILY Qty: 250 RF: 6 Med Offloader Brace Qty: 1 RF: 0 blood-glucose meter [FreeStyle Lite Meter] kit .ROUTE .MEDSUPPLY Qty: 1 RF: 0 pantoprazole 40 mg tablet,delayed release (DR/EC) 40 mg PO DAILY RF: 0 Eliquis 5 mg tablet 5 mg PO BID Qty: 180 RF: 3 aspirin [Aspirin Low-Strength] 81 mg tablet,chewable 81 mg PO DAILY Qty: 90 RF: 3 atorvastatin 40 mg tablet 40 mg PO DAILY Qty: 90 RF: 3 Blood Glucose Test strip 1 ea Miscellaneous AC & HS Qty: 120 RF: 3 gabapentin 300 mg capsule 300 mg PO as directed MDD 900 Qty: 270 RF: 3 lamotrigine [Lamictal] 100 mg tablet 100 mg PO BID Qty: 180 RF: 3 lancets [FreeStyle Lancets] 28 gauge misc 1 ea Miscellaneous as directed Qty: 150 RF: 11 lidocaine 5 % adhesive patch,medicated 1 patch TP DAILY Qty: 15 RF: 12 nystatin 100,000 unit/gram cream 1 applic TP BID Qty: 30 RF: 3 pen needle, diabetic [Pen Needle] 31 gauge x 11/24 needle 1 ea Miscellaneous QID Qty: 100 RF: 11 clindamycin HCl 150 mg capsule 600 mg PO ONCE Qty: 4 RF: 6 carvedilol 6.25 mg tablet 6.25 mg PO BID Qty: 180 RF: 3 acyclovir 400 mg tablet 400 mg PO TID Qty: 21 RF: 0 acetaminophen [Tylenol] 325 MG tablet 650 mg PO Q4H PRN PRNQty: 0 RF: 0 Discharge Instructions Instructions: Corneal Abrasion (ED) Medical Decision Making 78 yo female states she was raking and started to walk and a branch hit her in the right eye. Dneies loc or falling. Has pain in the 9 olock position of the conjunctiva with small area of conjunctival injection. Perrl, eomi without pain. No foreign body on exam. had relief of pain with installation of tetracaine. On flourescein staining has a small 1mm corneal abrasion, negative sandi's sign and no findings to suggest globe rupture. no deep eye pain and eomi without pain so doubt retrobulbar hematoma. Will start abx ointment and have her f/u with her eyewear consultant at [facility] Differential Diagnosis corneal abrasion, conjunctivitis HPI General Mode of arrival: ambulatory . Date/Time Provider Initiated Documentation: 11/12/18 15:42 . Limitations to Documentation: no limitations . Information obtained by: patient . History of Present Illness 78 year old F presents to the emergency department with the chief complaint of right eye pain, described as moderate, Quality is described as aching, Patient started experiencing this hour(s) (1) and it has been constant. No relieving factors improve symptom(s), No exacerbating factors reported . Patient did receive the following treatments prior to arrival, none Related Data Home Medications Medication Instructions Recorded Confirmed acetaminophen [Tylenol] 650 mg PO Q4H PRN PRN #0 tab 01/15/16 11/12/18 cyanocobalamin (vitamin B-12) 1,000 mcg PO DAILY #90 tab-cap 02/10/16 11/12/18 cholecalciferol (vitamin D3) 1,000 unit PO BID cap 10/05/16 11/12/18 [Vitamin D3] magnesium oxide 400 mg PO DAILY #250 tab-cap 11/09/16 11/12/18 nitroglycerin [Nitrostat] 0.4 mg SUBLINGUAL Q5 MIN PRN X3 11/09/16 11/12/18 PRN #25 tab.sl blood-glucose meter kit #1 each 04/13/18 11/10/18 pantoprazole 40 mg tablet,delayed 40 mg PO DAILY 06/10/18 11/12/18 release apixaban 5 mg tablet 5 mg PO BID #180 tab 07/19/18 11/12/18 aspirin 81 mg chewable tablet 81 mg PO DAILY #90 tab 07/19/18 11/12/18 atorvastatin 40 mg tablet 40 mg PO DAILY #90 tab 07/19/18 11/12/18 blood sugar diagnostic strips #120 strip 07/19/18 11/10/18 gabapentin 300 mg capsule 300 mg PO as directed #270 cap MDD 07/19/18 11/12/18 900 lamotrigine 100 mg tablet 100 mg PO BID #180 tab-cap 07/19/18 11/12/18 lancets 28 gauge #150 ea 07/19/18 11/10/18 lidocaine 5 % topical patch 1 patch TP DAILY #15 each 07/19/18 11/12/18 nystatin 100,000 unit/gram topical 1 applic TP BID #30 gm 07/19/18 11/12/18 cream pen needle, diabetic 31 gauge x #100 ndl 07/19/18 11/10/1811/24 clindamycin HCl 150 mg capsule 600 mg PO ONCE #4 cap 08/25/18 11/12/18 ibuprofen 800 mg tablet 800 mg PO TID PRN #30 tab 09/05/18 11/12/18 carvedilol 6.25 mg tablet 6.25 mg PO BID #180 tab-cap 10/21/18 11/12/18 acyclovir 400 mg tablet 400 mg PO TID #21 tab 11/07/18 11/12/18 lorazepam 0.5 mg tablet 0.5 mg PO BID #56 tab MDD 1 mg 11/10/18 11/12/18 losartan 50 mg tablet 50 mg PO DAILY tab 11/10/18 11/12/18 mirtazapine 7.5 mg tablet 7.5 mg PO DAILY #30 tab 11/10/18 11/12/18 tramadol 50 mg tablet 25 mg PO BID PRN #28 tab MDD 50mg 11/10/18 11/12/18 erythromycin 1.25 cm OP TID 5 Days #3.5 gm 11/12/18 Previous Rx's Medication Instructions Recorded acetaminophen [Tylenol] 650 mg PO Q4H PRN PRN #0 tab 01/15/16 blood-glucose meter kit #1 each 04/13/18 apixaban 5 mg tablet 5 mg PO BID #180 tab 07/19/18 aspirin 81 mg chewable tablet 81 mg PO DAILY #90 tab 07/19/18 atorvastatin 40 mg tablet 40 mg PO DAILY #90 tab 07/19/18 blood sugar diagnostic strips #120 strip 07/19/18 gabapentin 300 mg capsule 300 mg PO as directed #270 cap MDD 07/19/18 900 lamotrigine 100 mg tablet 100 mg PO BID #180 tab-cap 07/19/18 lancets 28 gauge #150 ea 07/19/18 lidocaine 5 % topical patch 1 patch TP DAILY #15 each 07/19/18 nystatin 100,000 unit/gram topical 1 applic TP BID #30 gm 07/19/18 cream pen needle, diabetic 31 gauge x #100 ndl 07/19/1811/24 clindamycin HCl 150 mg capsule 600 mg PO ONCE #4 cap 08/25/18 ibuprofen 800 mg tablet 800 mg PO TID PRN #30 tab 09/05/18 carvedilol 6.25 mg tablet 6.25 mg PO BID #180 tab-cap 10/21/18 acyclovir 400 mg tablet 400 mg PO TID #21 tab 11/07/18 lorazepam 0.5 mg tablet 0.5 mg PO BID #56 tab MDD 1 mg 11/10/18 mirtazapine 7.5 mg tablet 7.5 mg PO DAILY #30 tab 11/10/18 tramadol 50 mg tablet 25 mg PO BID PRN #28 tab MDD 50mg 11/10/18 erythromycin 1.25 cm OP TID 5 Days #3.5 gm 11/12/18 Allergies Allergy/AdvReac Type Severity Reaction Status Date / Time nifedipine Allergy Mild Hives Verified 11/10/18 09:50 amiodarone AdvReac Severe tremor Verified 11/10/18 09:50 oxycodone AdvReac Severe heavy Verified 11/10/18 09:50 sedation amoxicillin AdvReac Intermediate sore Verified 11/10/18 09:50 burning mouth Anesthetics - Amide Type AdvReac Intermediate anxious Verified 11/10/18 09:50 diazepam AdvReac Intermediate Agitation Verified 11/10/18 09:50 indomethacin AdvReac Intermediate headache, Verified 11/10/18 09:50 flush metformin AdvReac Intermediate Diarrhea Verified 11/10/18 09:50 General Stated Complaint: EyeProblem ANASTACIA: 4 Review of Systems Review of Systems All systems reviewed & are unremarkable except as noted in HPI and below Constitutional Denies chills, Denies fever(s) and Denies weakness ENT Denies change in voice Cardiovascular Denies chest pain and Denies dyspnea Respiratory Denies cough and Denies dyspnea Gastrointestinal Denies abdominal pain, Denies nausea and Denies vomiting Integumentary/Breasts Denies rash Neurologic Denies weakness [facility] Medical History Unexplained weight loss (Chronic) Chronic pain (Chronic) Keratosis (Chronic 09/01/13) Chronic cough (Chronic 04/18/15) Abscess of left thigh (Resolved 10/05/16) Essential tremor (Chronic 04/02/08) Mid back pain (Resolved) Sleeping difficulty (Chronic 07/01/15) Primary osteoarthritis of right knee (Chronic 08/24/16) Panic anxiety syndrome (Chronic 03/20/14) Pacemaker (Chronic 09/05/15) Hyperlipidemia (Chronic 08/17/11) Generalized atherosclerosis (Chronic 08/17/11) Gouty arthropathy, unspecified (Chronic 08/17/11) Frequent falls (Chronic 04/05/17) Essential hypertension (Chronic 08/17/11) Diabetic neuropathy (Chronic 03/07/15) Depressive disorder (Chronic 08/17/11) DM type 2, controlled, with complication (Chronic) Chronic nonalcoholic liver disease (Chronic 08/17/11) Chronic atrial fibrillation (Chronic 11/19/15) Chronic kidney disease, stage III (moderate) (Chronic 08/17/11) Anticoagulation adequate (Chronic 05/12/10) Presence of permanent cardiac pacemaker (Chronic) Coronary artery disease (Chronic) Hypertension (Chronic) 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 Sister No problems noted. 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 History History 5 Para Hx # Term Pregnancies 4 Multiple births Hx # Pregnancies Ectopic pregnancies AB induced Hx Number of Living Children AB spontaneous Exam Const General: no acute distress Orientation: alert HENMT Head: normal to inspection Ears: external ears normal General nose exam: external nose normal Mouth: moist mucous membranes Eyes Eyelids: eyelids normal Neck Neck: normal visual inspection Resp Effort & Inspection: normal respiratory effort and able to speak in complete sentences Cardio Rate: regular rate Skin General skin exam: no rashes or lesions noted Neuro General: alert and oriented x3 Extrem General: normal to inspection Psych Mental Status: mental status grossly normal Course Vital Signs Temperature 36.7 C 11/12/18 15:47 Pulse 67 11/12/18 15:47 Respiratory Rate 18 11/12/18 15:47 Blood Pressure 150/76 H 11/12/18 15:47 Pulse Oximetry 98 11/12/18 15:47 Temperature 36.7 C 11/12/18 15:47 Temperature Source Temporal Artery Scan 11/12/18 15:47 Pulse 67 11/12/18 15:47 Respiratory Rate 18 11/12/18 15:47 Blood Pressure 150/76 H 11/12/18 15:47 Pulse Oximetry 98 11/12/18 15:47 Oxygen Delivery Method Room Air 11/12/18 15:47 Oxygen Flow Rate 0 11/12/18 15:47 Pain Level 5 11/12/18 15:47
== END 2018-11-12 16:23 | disposition home or self-care (01) ==
PROVIDERS: Emergency Provider Emergency Medicine; PCP Nurse Practitioner Adult Health
DX: S05.01XA Injury of conjunctiva and corneal abrasion without foreign body, right eye, initial encounter (principal); W22.8XXA Striking against or struck by other objects, initial encounter
CPT/HCPCS: 99283

== ENCOUNTER 2018-11-21 15:06 | Emergency (ER) | payer MEDICARE, BC, SELFPAY ==
[2018-11-21 15:12] VITALS: BP 201/77; PULSE 80; RESP 16; TEMP 36.6; O2SAT 98
--- NOTE | 2018-11-21 15:24 | W.ED.GENAD ---
Discharge Plan Disposition Patient Disposition: HOME Condition: Stable Discharge Details Chief Complaint: HeadInjury Clinical Impression: Head injury, Multiple contusions, Skin avulsion, Hypertension Primary Care Provider: Linn Paulino ED Provider: Carly Hart Home Meds and New Rx's Prescriptions: Continued mirtazapine 7.5 mg tablet 7.5 mg PO DAILY Qty: 30 RF: 1 losartan 50 mg tablet 50 mg PO DAILY RF: 0 lorazepam 0.5 mg tablet 0.5 mg PO BID MDD 1 mg Qty: 56 RF: 0 tramadol 50 mg tablet 25 mg PO BID MDD 50mg PRN (Reason: pain) Qty: 28 RF: 0 ibuprofen 800 mg tablet 800 mg PO TID PRN (Reason: gout attack) Qty: 30 RF: 0 cyanocobalamin (vitamin B-12) 1,000 MCG tablet 1,000 mcg PO DAILY Qty: 90 RF: 3 cholecalciferol (vitamin D3) [Vitamin D3] 1,000 UNIT capsule 1,000 unit PO BID RF: 0 nitroglycerin [Nitrostat] 0.4 MG tablet, sublingual 0.4 mg Sublingual Q5 MIN PRN X3 PRNQty: 25 RF: 12 magnesium oxide 400 MG tablet 400 mg PO DAILY Qty: 250 RF: 6 Med Offloader Brace Qty: 1 RF: 0 blood-glucose meter [FreeStyle Lite Meter] kit .ROUTE .MEDSUPPLY Qty: 1 RF: 0 pantoprazole 40 mg tablet,delayed release (DR/EC) 40 mg PO DAILY RF: 0 Eliquis 5 mg tablet 5 mg PO BID Qty: 180 RF: 3 aspirin [Aspirin Low-Strength] 81 mg tablet,chewable 81 mg PO DAILY Qty: 90 RF: 3 atorvastatin 40 mg tablet 40 mg PO DAILY Qty: 90 RF: 3 Blood Glucose Test strip 1 ea Miscellaneous AC & HS Qty: 120 RF: 3 gabapentin 300 mg capsule 300 mg PO as directed MDD 900 Qty: 270 RF: 3 lamotrigine [Lamictal] 100 mg tablet 100 mg PO BID Qty: 180 RF: 3 lancets [FreeStyle Lancets] 28 gauge misc 1 ea Miscellaneous as directed Qty: 150 RF: 11 lidocaine 5 % adhesive patch,medicated 1 patch TP DAILY Qty: 15 RF: 12 nystatin 100,000 unit/gram cream 1 applic TP BID Qty: 30 RF: 3 pen needle, diabetic [Pen Needle] 31 gauge x 5/16 needle 1 ea Miscellaneous QID Qty: 100 RF: 11 clindamycin HCl 150 mg capsule 600 mg PO ONCE Qty: 4 RF: 6 carvedilol 6.25 mg tablet 6.25 mg PO BID Qty: 180 RF: 3 acyclovir 400 mg tablet 400 mg PO TID Qty: 21 RF: 0 acetaminophen [Tylenol] 325 MG tablet 650 mg PO Q4H PRN PRNQty: 0 RF: 0 Discharge Instructions Instructions: Head Injury (ED), Contusion in Adults (ED), Skin Avulsion (ED), Hypertension (ED) Additional Instructions: Please return immediately to the emergency department if you develop any new or worsening symptoms or if you become otherwise concerned. It is extremely important that you make an appointment to be seen as soon as possible in follow-up for this visit by your primary care doctor. Referrals: Linn Paulino NP [Primary Care Provider] - Discharge Data Discharge Date/Time-TO BE ENTERED AT DEPARTURE: 11/21/18 18:10 Medical Decision Making Liliana Haynes is a 78 y/o woman with history of multiple medical problems on apixaban and aspirin who presented to the emergency department with headache, right shoulder and right elbow pain after mechanical fall. On exam patient is well and nontoxic appearing without neurologic deficit. Concern for possible intracranial trauma, C-spine trauma, possible shoulder/elbow fracture. Plan for CT head and neck, plain films shoulder/elbow. Skin tear is not amenable to suture or skin glue repair, there is no devitalized tissue and debridement is not indicated. Plan for washout and wound dressing with bacitracin and gauze. Bleeding is controlled. Tylenol for pain. Imaging result is negative, wound cleaned and dressed. Tetanus is up-to-date. I had a lengthy discussion with the patient regarding return to emergency department precautions, and importance of outpatient follow-up with PCP, and home care. Patient verbalized understanding plan was amenable. Patient was discharged home with clear plan for outpatient follow-up. All questions were answered. Head and CT spine per radiology over the phone: nothing acute, atrophy, degenerative changes of c-spine Plain films visualized and interpreted by me in conjunction with radiology: XR Right Shoulder, Complete, 2 or More Views EXAM DATE/TIME: 11/21/2018 3:34 PM CLINICAL HISTORY: 78 years old, female; Injury or trauma; Fall; Initial encounter; Blunt trauma (contusions or hematomas; Elbow; Right TECHNIQUE: Imaging protocol: XR Right shoulder, complete 2 or more views. COMPARISON: Chest x-ray 10/19/2017. FINDINGS: Bones/joints: Old healed impacted fracture deformity of the right humerus surgical neck. No acute fracture or dislocation. Osteopenia. Degenerative arthrosis of the acromioclavicular joint. Soft tissues: Normal. IMPRESSION: No acute fracture. XR Right Elbow Complete, 3 or more Views EXAM DATE/TIME: 11/21/2018 4:07 PM CLINICAL HISTORY: 78 years old, female; Injury or trauma; Fall; Initial encounter; Blunt trauma (contusions or hematomas; Elbow; Right TECHNIQUE: Imaging protocol: XR Right elbow. Views: 3 or more views. COMPARISON: CR RIGHT ELBOW COMPLETE 08/25/2015 9:11 PM FINDINGS: Bones/joints: No elbow joint effusion. No acute fracture or dislocation. Soft tissues: Mild swelling of the posterior elbow soft tissues. Other findings: Chronic lateral epicondylitis. IMPRESSION: No fracture. Medical Records Medical records reviewed: Yes I reviewed the patient's medical records. Lab Data Lab results reviewed: Yes I reviewed the patient's lab results. HPI General Mode of arrival: wheelchair. Date/Time Provider Initiated Documentation: 11/21/18 15:24. Limitations to Documentation: no limitations. Information obtained by: patient, family, RN notes reviewed and old records reviewed. HPI Narrative: Liliana Haynes is a 78 y/o woman with history of hyperlipidemia, hypertension, diabetes, frequent falls, atrial fibrillation, chronic kidney disease, coronary artery disease, on apixaban emergency department with fall. Patient reports that she has a long history of balance issues which are chronic and unchanged. She reports that today she was taking her dog, a large border collie, to the auto damage app[employer], and dog pulled on the leash unexpectedly and caused the patient to lose her balance. She reports that she fell backwards, hitting her head against the wall, along with her right shoulder and elbow. Patient denies loss of consciousness and remembers the event in its entirety. Patient reports that she had no symptoms prior to the fall and that the fall was mechanical. Patient is currently reporting headache and pain in her shoulder and elbow. She denies any other pain denies any other symptoms. Was previously in her usual state of health, no recent travel, no recent illness. Has been eating and drinking as usual. Has been taking all of her medications as usual. Related Data Home Medications Medication Instructions Recorded Confirmed acetaminophen [Tylenol] 650 mg PO Q4H PRN PRN #0 tab 01/15/16 11/21/18 cyanocobalamin (vitamin B-12) 1,000 mcg PO DAILY #90 tab-cap 02/10/16 11/21/18 cholecalciferol (vitamin D3) 1,000 unit PO BID cap 10/05/16 11/12/18 [Vitamin D3] magnesium oxide 400 mg PO DAILY #250 tab-cap 11/09/16 11/12/18 nitroglycerin [Nitrostat] 0.4 mg SUBLINGUAL Q5 MIN PRN X3 11/09/16 11/21/18 PRN #25 tab.sl blood-glucose meter kit #1 each 04/13/18 11/10/18 pantoprazole 40 mg tablet,delayed 40 mg PO DAILY 06/10/18 11/21/18 release apixaban 5 mg tablet 5 mg PO BID #180 tab 07/19/18 11/12/18 aspirin 81 mg chewable tablet 81 mg PO DAILY #90 tab 07/19/18 11/21/18 atorvastatin 40 mg tablet 40 mg PO DAILY #90 tab 07/19/18 11/21/18 blood sugar diagnostic strips #120 strip 07/19/18 11/10/18 gabapentin 300 mg capsule 300 mg PO as directed #270 cap MDD 07/19/18 11/21/18 900 lamotrigine 100 mg tablet 100 mg PO BID #180 tab-cap 07/19/18 11/21/18 lancets 28 gauge #150 ea 07/19/18 11/10/18 lidocaine 5 % topical patch 1 patch TP DAILY #15 each 07/19/18 11/21/18 nystatin 100,000 unit/gram topical 1 applic TP BID #30 gm 07/19/18 11/21/18 cream pen needle, diabetic 31 gauge x #100 ndl 07/19/18 11/10/1811/24 clindamycin HCl 150 mg capsule 600 mg PO ONCE #4 cap 08/25/18 11/21/18 ibuprofen 800 mg tablet 800 mg PO TID PRN #30 tab 09/05/18 11/21/18 carvedilol 6.25 mg tablet 6.25 mg PO BID #180 tab-cap 10/21/18 11/21/18 lorazepam 0.5 mg tablet 0.5 mg PO BID #56 tab MDD 1 mg 11/10/18 11/21/18 losartan 50 mg tablet 50 mg PO DAILY tab 11/10/18 11/21/18 mirtazapine 7.5 mg tablet 7.5 mg PO DAILY #30 tab 11/10/18 11/21/18 tramadol 50 mg tablet 25 mg PO BID PRN #28 tab MDD 50mg 11/10/18 11/21/18 acyclovir 400 mg tablet 400 mg PO TID #21 tab 11/21/18 11/21/18 Previous Rx's Medication Instructions Recorded acetaminophen [Tylenol] 650 mg PO Q4H PRN PRN #0 tab 01/15/16 blood-glucose meter kit #1 each 04/13/18 apixaban 5 mg tablet 5 mg PO BID #180 tab 07/19/18 aspirin 81 mg chewable tablet 81 mg PO DAILY #90 tab 07/19/18 atorvastatin 40 mg tablet 40 mg PO DAILY #90 tab 07/19/18 blood sugar diagnostic strips #120 strip 07/19/18 gabapentin 300 mg capsule 300 mg PO as directed #270 cap MDD 07/19/18 900 lamotrigine 100 mg tablet 100 mg PO BID #180 tab-cap 07/19/18 lancets 28 gauge #150 ea 07/19/18 lidocaine 5 % topical patch 1 patch TP DAILY #15 each 07/19/18 nystatin 100,000 unit/gram topical 1 applic TP BID #30 gm 07/19/18 cream pen needle, diabetic 31 gauge x #100 ndl 07/19/1811/24 clindamycin HCl 150 mg capsule 600 mg PO ONCE #4 cap 08/25/18 ibuprofen 800 mg tablet 800 mg PO TID PRN #30 tab 09/05/18 carvedilol 6.25 mg tablet 6.25 mg PO BID #180 tab-cap 10/21/18 lorazepam 0.5 mg tablet 0.5 mg PO BID #56 tab MDD 1 mg 11/10/18 mirtazapine 7.5 mg tablet 7.5 mg PO DAILY #30 tab 05/02/19 tramadol 50 mg tablet 25 mg PO BID PRN #28 tab MDD 50mg 11/10/18 acyclovir 400 mg tablet 400 mg PO TID #21 tab 11/21/18 Allergies Allergy/AdvReac Type Severity Reaction Status Date / Time nifedipine Allergy Mild Hives Verified 11/21/18 15:18 amiodarone AdvReac Severe tremor Verified 11/21/18 15:18 oxycodone AdvReac Severe heavy Verified 11/21/18 15:18 sedation amoxicillin AdvReac Intermediate sore Verified 11/21/18 15:18 burning mouth Anesthetics - Amide Type AdvReac Intermediate anxious Verified 11/21/18 15:18 diazepam AdvReac Intermediate Agitation Verified 11/21/18 15:18 indomethacin AdvReac Intermediate headache, Verified 11/21/18 15:18 flush metformin AdvReac Intermediate Diarrhea Verified 11/21/18 15:18 General Stated Complaint: HeadInjury ANASTACIA: 3 Review of Systems Review of Systems Constitutional: denies fevers Eyes: denies eye pain ENT: denies facial pain, dental pain, sore throat Cardiovascular: denies chest pain Respiratory: denies SOB, cough GI: denies abdominal pain, vomiting : denies flank pain MSK: denies back pain, neck pain, reports right shoulder and right elbow pain Skin: denies rash Neuro: denies numbness, weakness, reports headache PFSH Medical History Unexplained weight loss (Chronic) Chronic pain (Chronic) Keratosis (Chronic 09/01/13) Chronic cough (Chronic 04/18/15) Abscess of left thigh (Resolved 10/05/16) Essential tremor (Chronic 04/02/08) Mid back pain (Resolved) Sleeping difficulty (Chronic 07/01/15) Primary osteoarthritis of right knee (Chronic 08/24/16) Panic anxiety syndrome (Chronic 03/20/14) Pacemaker (Chronic 09/05/15) Hyperlipidemia (Chronic 08/17/11) Generalized atherosclerosis (Chronic 08/17/11) Gouty arthropathy, unspecified (Chronic 08/17/11) Frequent falls (Chronic 04/05/17) Essential hypertension (Chronic 08/17/11) Diabetic neuropathy (Chronic 03/07/15) Depressive disorder (Chronic 08/17/11) DM type 2, controlled, with complication (Chronic) Chronic nonalcoholic liver disease (Chronic 08/17/11) Chronic atrial fibrillation (Chronic 11/19/15) Chronic kidney disease, stage III (moderate) (Chronic 08/17/11) Anticoagulation adequate (Chronic 05/12/10) Presence of permanent cardiac pacemaker (Chronic) Coronary artery disease (Chronic) Hypertension (Chronic) 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) GERD (gastroesophageal reflux disease) (Chronic) Chest pain (Resolved) ASCVD (arteriosclerotic cardiovascular disease) Fracture closed, humerus (09/08/15) Gout HLD (hyperlipidemia) Surgical History H/O cardiac catheterization (Chronic 05/30/18) History of hysterectomy (Resolved) Ablation for A Fib (03/10/16) Extraction of cataract (11/11/15) Extraction of cataract (07/07/16) Pacemaker (09/05/15) Replacement of total knee joint (09/14/11) Trigger Finger release cardiac catheterization (11/27/14) cardioversion (07/20/14) Social History Smoking/Tobacco Use Status: Never Second Hand Exposure: No Alcohol Intake: never Drug use: Never Substance use type: does not use Adopted: No (raised by Aunt and Uncle) Caregiver/Support person: Yes (youngest daughter: Jacquelyn Chavira is healthcare agent ph:[phone]) Foster care: No Household members: spouse Housing: house Number of Children: 4 What is your relationship status?: Panel score (0-1 are the most socially isolated patients): 1 What type of physical activity do you participate in: none Shasta/Presybeterian: Christianity Seatbelt use: always Drive intox or ride w/intox flatbed driver: No Water heater temp set <120 deg: Yes Working smoke detector in home: Yes Fire extinguisher in home: Yes Carbon monox detector in home: Yes Firearms in home: Yes Do you feel safe at home: Yes Do you feel safe in your relationship?: Yes Additional Social history: Salma Wang. History History 5 Para Hx # Term Pregnancies 4 Multiple births Hx # Pregnancies Ectopic pregnancies AB induced Hx Number of Living Children AB spontaneous Exam Narrative Exam Narrative: Constitutional: well and [id number], pleasant, conversing normally HENT: head atraumatic/normocephalic/normal inspection, mucous membranes moist Eyes: conjunctiva normal, sclera normal, pupils 3mm b/l Neck: no stridor, normal ROM, trachea midline, no c/s TTP Chest: normal inspection Resp: normal work of breathing, LCTAB Cardio: normal rate, normal rhythm, no murmur appreciated GI: abdomen soft, non-tender, non-distended Back: normal inspection, no rash Skin: warm, dry, normal color, no rash Neuro: alert, not altered, grossly non-focal, normal tone Ext: no edema, right shoulder with mild diffuse tenderness to palpation, normal range of motion elicits pain, right elbow diffusely tender to palpation with 2 cm skin tear over the lateral epicondyle, range of motion intact but elicits pain, no tenderness of the forearm, wrist, hand. Radial pulses intact and symmetric, brisk cap refill. Psych: normal mood, normal affect, normal behavior Course Vital Signs Temperature 36.6 C 11/21/18 15:12 Pulse 80 11/21/18 15:12 Respiratory Rate 16 11/21/18 15:12 Blood Pressure 201/77 H 11/21/18 15:12 Pulse Oximetry 98 11/21/18 15:12 Temperature 36.6 C 11/21/18 15:12 Temperature Source Temporal Artery Scan 11/21/18 15:12 Pulse 80 11/21/18 15:12 Respiratory Rate 16 11/21/18 15:12 Respiratory Effort Non-Labored 11/21/18 15:12 Blood Pressure 201/77 H 11/21/18 15:12 Blood Pressure Position Sitting 11/21/18 15:12 Pulse Oximetry 98 11/21/18 15:12 Oxygen Delivery Method Room Air 11/21/18 15:12 Oxygen Flow Rate 0 11/21/18 15:12 Pain Level 7 11/21/18 15:12
--- NOTE | 2018-11-21 15:32 | DI.CT_ITS ---
SYMPTOMS/DIAGNOSIS: HEADACHE S/P TRAUMA NONCONTRAST HEAD CT: Comparison is made with October,. There is stable moderate atrophy. There are white matter changes consistent with small vessel disease. No intracranial hemorrhage, mass or acute infarct is seen. There is no evidence of skull fracture. The sinuses and mastoid air cells appear clear. IMPRESSION: Stable atrophy and small vessel disease of white matter. No acute abnormality. CT OF THE CERVICAL SPINE: There is no evidence of fracture. The alignment appears normal. There are degenerative disc changes. There is no significant neural foraminal narrowing or gross evidence of central canal stenosis. IMPRESSION: Degenerative changes. No acute abnormality.
--- NOTE | 2018-11-21 15:32 | DI.RAD_ITS ---
SYMPTOMS/DIAGNOSIS: RIGHT ELBOW AND SHOULDER PAIN S/P TRAUMA RIGHT ELBOW: The exam is somewhat limited by overlying clothing. No fracture or joint effusion is seen. IMPRESSION: Negative right elbow. RIGHT SHOULDER: Comparison is made with right humerus dated September,. There is an old healed fracture deformity of the proximal humerus. No acute fracture or dislocation is seen. There is some spurring at the inferior aspect of the acromion and at the inferior glenoid. A pacemaker and sternal wires are incidentally noted. IMPRESSION: Old humeral fracture. No acute abnormality.
--- NOTE | 2018-11-21 16:15 | DI.VRAD_ITS ---
EXAM: XR Right Elbow Complete, 3 or more Views EXAM DATE/TIME: 11/21/2018 4:07 PM CLINICAL HISTORY: 78 years old, female; Injury or trauma; Fall; Initial encounter; Blunt trauma (contusions or hematomas; Elbow; Right TECHNIQUE: Imaging protocol: XR Right elbow. Views: 3 or more views. COMPARISON: CR RIGHT ELBOW COMPLETE 08/25/2015 9:11 PM FINDINGS: Bones/joints: No elbow joint effusion. No acute fracture or dislocation. Soft tissues: Mild swelling of the posterior elbow soft tissues. Other findings: Chronic lateral epicondylitis. IMPRESSION: No fracture. Dictated and Authenticated by: Bolivar Rey MD. Ordering:NATHANIEL Carroll MD
--- NOTE | 2018-11-21 16:20 | DI.VRAD_ITS ---
EXAM: XR Right Shoulder, Complete, 2 or More Views EXAM DATE/TIME: 11/21/2018 3:34 PM CLINICAL HISTORY: 78 years old, female; Injury or trauma; Fall; Initial encounter; Blunt trauma (contusions or hematomas; Elbow; Right TECHNIQUE: Imaging protocol: XR Right shoulder, complete 2 or more views. COMPARISON: Chest x-ray 10/19/2017. FINDINGS: Bones/joints: Old healed impacted fracture deformity of the right humerus surgical neck. No acute fracture or dislocation. Osteopenia. Degenerative arthrosis of the acromioclavicular joint. Soft tissues: Normal. IMPRESSION: No acute fracture. Dictated and Authenticated by: Bolivar Rey MD. Ordering:NATHANIEL Carroll MD
[2018-11-21] MEDS: Acetaminophen 325 MG TAB 650 MG PO (18:00)
[2018-11-21 18:20] VITALS: BP 210/100; PULSE 73; RESP 16; TEMP 36.6; O2SAT 98
--- NOTE | 2018-11-23 08:28 | PDOC.ERCMPRO ---
Care Management Progress Note 11/22-Dr. Hortensia Hart requested PCP (Tommie) f/u as soon as possible for hypertension. Referral faxed to [facility]
== END 2018-11-21 18:10 | disposition home or self-care (01) ==
PROVIDERS: Emergency Provider Student in an Organized Health Care Education/Training Program; PCP Nurse Practitioner Adult Health
DX: S09.90XA Unspecified injury of head, initial encounter (principal); S51.011A Laceration without foreign body of right elbow, initial encounter; S40.011A Contusion of right shoulder, initial encounter; W01.198A Fall on same level from slipping, tripping and stumbling with subsequent striking against other object, initial encounter; Y93.K1 Activity, walking an animal; E11.22 Type 2 diabetes mellitus with diabetic chronic kidney disease; I12.9 Hypertensive chronic kidney disease with stage 1 through stage 4 chronic kidney disease, or unspecified chronic kidney disease; N18.3 Chronic kidney disease, stage 3 (moderate); Z79.01 Long term (current) use of anticoagulants; I48.91 Unspecified atrial fibrillation; R29.6 Repeated falls
CPT/HCPCS: 99284; 70450; 72125; 73030; 73080; L0172

== ENCOUNTER 2019-02-02 10:26 | Emergency (ER) | payer MEDICARE, BC, SELFPAY ==
[2019-02-02] VITALS (23 sets, daily range): BP systolic 160–216; BP diastolic 73–101; PULSE 57–81; RESP 5–23; TEMP 36.7; O2SAT 96–100
--- NOTE | 2019-02-02 10:43 | ED.GENADUL_ITS ---
Discharge Plan Disposition Patient Disposition: HOME Discharge Details Chief Complaint: GenMedical Clinical Impression: Anterior epistaxis Primary Care Provider: Linn Paulino ED Provider: Roshan Luis Home Meds and New Rx's Prescriptions: Continued tramadol 50 mg tablet 25 mg PO BID MDD 50mg PRN (Reason: pain) Qty: 28 RF: 0 ibuprofen 800 mg tablet 800 mg PO TID PRN (Reason: gout attack) Qty: 30 RF: 0 losartan 50 mg tablet 50 mg PO BID RF: 0 mirtazapine 15 mg tablet 15 mg PO QHS Qty: 30 RF: 1 lorazepam 0.5 mg tablet 0.5 mg PO BID MDD 1 mg Qty: 56 RF: 0 cyanocobalamin (vitamin B-12) 1,000 MCG tablet 1,000 mcg PO DAILY Qty: 90 RF: 3 cholecalciferol (vitamin D3) [Vitamin D3] 1,000 UNIT capsule 1,000 unit PO BID RF: 0 nitroglycerin [Nitrostat] 0.4 MG tablet, sublingual 0.4 mg Sublingual Q5 MIN PRN X3 PRNQty: 25 RF: 12 magnesium oxide 400 MG tablet 400 mg PO DAILY Qty: 250 RF: 6 Med Offloader Brace Qty: 1 RF: 0 (DME) blood-glucose meter [FreeStyle Lite Meter] kit See Dose Instructions .ROUTE .MEDSUPPLY Qty: 1 RF: 0 pantoprazole 40 mg tablet,delayed release (DR/EC) 40 mg PO DAILY RF: 0 Eliquis 5 mg tablet 5 mg PO BID Qty: 180 RF: 3 aspirin [Aspirin Low-Strength] 81 mg tablet,chewable 81 mg PO DAILY Qty: 90 RF: 3 atorvastatin 40 mg tablet 40 mg PO DAILY Qty: 90 RF: 3 (DME) Blood Glucose Test strip 1 ea Miscellaneous AC & HS Qty: 120 RF: 3 gabapentin 300 mg capsule 300 mg PO as directed MDD 900 Qty: 270 RF: 3 lamotrigine [Lamictal] 100 mg tablet 100 mg PO BID Qty: 180 RF: 3 (DME) lancets [FreeStyle Lancets] 28 gauge misc 1 ea Miscellaneous as directed Qty: 150 RF: 11 lidocaine 5 % adhesive patch,medicated 1 patch TP DAILY Qty: 15 RF: 12 nystatin 100,000 unit/gram cream 1 applic TP BID Qty: 30 RF: 3 (DME) pen needle, diabetic [Pen Needle] 31 gauge x 5/16 needle 1 ea Miscellaneous QID Qty: 100 RF: 11 clindamycin HCl 150 mg capsule 600 mg PO ONCE Qty: 4 RF: 6 carvedilol 6.25 mg tablet 9.375 mg PO BID RF: 0 acetaminophen [Tylenol] 325 MG tablet 650 mg PO Q4H PRN PRNQty: 0 RF: 0 Discharge Instructions Instructions: Nosebleed (ED) Additional Instructions: Apply triple antibiotic or Vaseline to both nostrils twice daily. Continue all regularly prescribed medications. Return to the emergency department for any acute concerns Medical Decision Making 78-year-old female who is chronically anticoagulated. She has intermittent mild headaches for months time. This morning she awoke with right anterior epistaxis that did resolve with the application of pressure. EMS was called and by the time patient transported to the ER the bleeding had ceased. She does arrive with a mild headache. She is hypertensive with blood pressure approximate 200/90. Patient placed in a software development specialist, screening laboratories obtained. Review of systems will note some infrequent falls at home and given an accompanying mild headache, her no anticoagulation, she was referred for CT scan of the head to rule out intracranial bleeding or bony injury. CT scan was unremarkable. Lab reviewed and unremarkable for acute findings. I did perform chemical cautery and discrete area of right anterior medial epistaxis with improvement. Patient blood pressure improved to 160/90 following acetaminophen and observation. She is stable, improved, appropriate for discharged home Lab Data Lab results reviewed: Yes I reviewed the patient's lab results. Laboratory Results - last 24 hr 02/02/19 02/02/19 02/02/19 10:50 11:20 11:20 PT 10.1 INR 1.0 Sodium 141 Potassium 3.8 Chloride 106 Carbon Dioxide 28.0 Anion Gap 7.0 BUN 21 H Creatinine 0.84 Estimated GFR/1.73 m2 >= 60.00 Glucose 133 H Calcium 10.4 H Magnesium 1.9 Total Bilirubin 0.4 AST 19 ALT 30 Alkaline Phosphatase 55 Troponin I < 0.05 Total Protein 7.2 Albumin 3.6 Urine Color Yellow Urine Clarity Clear Urine pH 7.5 Ur Specific [place] 1.015 Urine Protein Negative Urine Ketones Negative Urine Blood Trace-intact H Urine Nitrite Negative Urine Bilirubin Negative Urine Urobilinogen 0.2 Ur Leukocyte Esterase Negative Urine RBC 0-2 Urine WBC 0-2 Ur Epithelial Cells Negative Urine Crystals Negative Urine Bacteria Negative Urine Casts Negative Urine Mucus Negative Ur Culture Indicated? No Urine Glucose Negative ECG Data Attestation: I personally reviewed and interpreted this ECG (s) as follows: Prior ECG tracings: available for review Interpretation: Normal sinus rhythm with a rate of 82, the QRS is narrow, there is fairly diffuse nonspecific ST segment changes with subtle T wave inversions that is not changed versus comparison from May [facility] General Mode of arrival: ambulatory . Date/Time Provider Initiated Documentation: 02/02/19 11:12 . Limitations to Documentation: no limitations . Information obtained by: patient . History of Present Illness 78 year old F presents to the emergency department with the chief complaint of Epistaxis, resolved, mild headache, described as moderate, and is localized to the right. Patient started experiencing this minute(s) and it has been now resolved. No relieving factors improve symptom(s), No exacerbating factors reported . Patient notes denies chest pain and syncope. Patient did receive the following treatments prior to arrival, other (Pressure) Related Data Home Medications Medication Instructions Recorded Confirmed acetaminophen [Tylenol] 650 mg PO Q4H PRN PRN #0 tab 01/15/16 02/02/19 cyanocobalamin (vitamin B-12) 1,000 mcg PO DAILY #90 tab-cap 02/10/16 02/02/19 cholecalciferol (vitamin D3) 1,000 unit PO BID cap 10/05/16 02/02/19 [Vitamin D3] magnesium oxide 400 mg PO DAILY #250 tab-cap 11/09/16 02/02/19 nitroglycerin [Nitrostat] 0.4 mg SUBLINGUAL Q5 MIN PRN X3 11/09/16 02/02/19 PRN #25 tab.sl blood-glucose meter #1 each 04/13/18 01/06/19 pantoprazole 40 mg tablet,delayed 40 mg PO DAILY 06/10/18 02/02/19 release apixaban 5 mg tablet 5 mg PO BID #180 tab 07/19/18 02/02/19 aspirin 81 mg chewable tablet 81 mg PO DAILY #90 tab 07/19/18 02/02/19 atorvastatin 40 mg tablet 40 mg PO DAILY #90 tab 07/19/18 02/02/19 blood sugar diagnostic #120 strip 07/19/18 01/06/19 gabapentin 300 mg capsule 300 mg PO as directed #270 cap MDD 07/19/18 02/02/19 900 lamotrigine 100 mg tablet 100 mg PO BID #180 tab-cap 07/19/18 02/02/19 lancets 28 gauge #150 ea 07/19/18 01/06/19 lidocaine 5 % topical patch 1 patch TP DAILY #15 each 07/19/18 02/02/19 nystatin 100,000 unit/gram topical 1 applic TP BID #30 gm 07/19/18 02/02/19 cream pen needle, diabetic 31 gauge x #100 ndl 07/19/18 01/06/1911/24 clindamycin HCl 150 mg capsule 600 mg PO ONCE #4 cap 08/25/18 02/02/19 ibuprofen 800 mg tablet 800 mg PO TID PRN #30 tab 09/05/18 02/02/19 tramadol 50 mg tablet 25 mg PO BID PRN #28 tab MDD 50mg 11/10/18 02/02/19 carvedilol 6.25 mg tablet 9.375 mg PO BID tab 11/25/18 02/02/19 lorazepam 0.5 mg tablet 0.5 mg PO BID #56 tab MDD 1 mg 12/09/18 02/02/19 losartan 50 mg tablet 50 mg PO BID tab 12/09/18 02/02/19 mirtazapine 15 mg tablet 15 mg PO QHS #30 tab 12/09/18 02/02/19 Previous Rx's Medication Instructions Recorded acetaminophen [Tylenol] 650 mg PO Q4H PRN PRN #0 tab 01/15/16 blood-glucose meter #1 each 04/13/18 apixaban 5 mg tablet 5 mg PO BID #180 tab 07/19/18 aspirin 81 mg chewable tablet 81 mg PO DAILY #90 tab 07/19/18 atorvastatin 40 mg tablet 40 mg PO DAILY #90 tab 07/19/18 blood sugar diagnostic #120 strip 07/19/18 gabapentin 300 mg capsule 300 mg PO as directed #270 cap MDD 07/19/18 900 lamotrigine 100 mg tablet 100 mg PO BID #180 tab-cap 07/19/18 lancets 28 gauge #150 ea 07/19/18 lidocaine 5 % topical patch 1 patch TP DAILY #15 each 07/19/18 nystatin 100,000 unit/gram topical 1 applic TP BID #30 gm 07/19/18 cream pen needle, diabetic 31 gauge x #100 ndl 07/19/1811/24 clindamycin HCl 150 mg capsule 600 mg PO ONCE #4 cap 08/25/18 ibuprofen 800 mg tablet 800 mg PO TID PRN #30 tab 09/05/18 tramadol 50 mg tablet 25 mg PO BID PRN #28 tab MDD 50mg 11/10/18 lorazepam 0.5 mg tablet 0.5 mg PO BID #56 tab MDD 1 mg 12/09/18 mirtazapine 15 mg tablet 15 mg PO QHS #30 tab 12/09/18 Allergies Allergy/AdvReac Type Severity Reaction Status Date / Time nifedipine Allergy Mild Hives Verified 02/02/19 11:10 amiodarone AdvReac Severe tremor Verified 02/02/19 11:10 oxycodone AdvReac Severe heavy Verified 02/02/19 11:10 sedation amoxicillin AdvReac Intermediate sore Verified 02/02/19 11:10 burning mouth Anesthetics - Amide Type AdvReac Intermediate anxious Verified 02/02/19 11:10 diazepam AdvReac Intermediate Agitation Verified 02/02/19 11:10 indomethacin AdvReac Intermediate headache, Verified 02/02/19 11:10 flush metformin AdvReac Intermediate Diarrhea Verified 02/02/19 11:10 General Stated Complaint: GenMedical ANASTACIA: 3 Review of Systems Review of Systems 6 systems reviewed and otherwise negative [facility] Medical History Abscess of left thigh (Resolved 10/05/16) Anticoagulation adequate (Chronic 05/12/10) ASCVD (arteriosclerotic cardiovascular disease) (Chronic) Chest pain (Resolved) Chronic atrial fibrillation (Chronic 11/19/15) Chronic cough (Chronic 04/18/15) Chronic kidney disease, stage III (moderate) (Chronic 08/17/11) Chronic nonalcoholic liver disease (Chronic 08/17/11) Chronic pain (Chronic) Coronary artery disease (Chronic) Depressive disorder (Chronic 08/17/11) Diabetic neuropathy (Chronic 03/07/15) DM type 2, controlled, with complication (Chronic) Essential hypertension (Chronic 08/17/11) Essential tremor (Chronic 04/02/08) Frequent falls (Chronic 04/05/17) Generalized atherosclerosis (Chronic 08/17/11) GERD (gastroesophageal reflux disease) (Chronic) Gouty arthropathy, unspecified (Chronic 08/17/11) Hyperlipidemia (Chronic 08/17/11) Hypertension (Chronic) Keratosis (Chronic 09/01/13) Mid back pain (Resolved) Pacemaker (Chronic 09/05/15) Panic anxiety syndrome (Chronic 03/20/14) Presence of permanent cardiac pacemaker (Chronic) Primary osteoarthritis of right knee (Chronic 08/24/16) Sleeping difficulty (Chronic 07/01/15) 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 Sister No problems noted. Social History Smoking/Tobacco Use Status: Never Second Hand Exposure: No Alcohol Intake: never Drug use: Never Substance use type: does not use Adopted: No (raised by Aunt and Uncle) Caregiver/Support person: Yes (youngest daughter: Jacquelyn Chavira is healthcare agent [phone]) Foster care: No Household members: spouse Housing: house Number of Children: 4 What is your relationship status?: Panel score (0-1 are the most socially isolated patients): 1 What type of physical activity do you participate in: none Shasta/Confucianism: Sabianism Seatbelt use: always Drive intox or ride w/intox log driver: No Water heater temp set <120 deg: Yes Working smoke detector in home: Yes Fire extinguisher in home: Yes Carbon monox detector in home: Yes Firearms in home: Yes Do you feel safe at home: Yes Do you feel safe in your relationship?: Yes Additional Social history: Sees Henry Wang. History History 5 Para Hx # Term Pregnancies 4 Multiple births Hx # Pregnancies Ectopic pregnancies AB induced Hx Number of Living Children AB spontaneous Exam Narrative Exam Narrative: GEN: awake, alert, oriented 3. Pleasant, well groomed, interactive. HEAD: Normocephalic, atraumatic ENT: Mucous membranes moist, oropharynx unremarkable, External ear exam unremarkable. There is right medial anterior epistaxis present with slight blood EYES: PERRL, EOMI NECK: Full ROM, no SHAGGY, no menigismus CHEST/RESP: Nontender, clear to auscultation bilateral, no wheeze/rhonchi/rales CARDIOVASCULAR: RRR, distant with question murmur, rub criselda. 2+ Rad pulse bilateral ABDOMEN: Soft, nontender, no mass. +Bowel sounds EXT: Full ROM, no edema, no rash Neuro: Grossly normal neurologic exam, conversant, interactive. Psych: Speech fluent, thoughts congruent, affect normal Course Vital Signs Temperature 36.7 C 02/02/19 10:29 Pulse 79 02/02/19 10:29 Respiratory Rate 11 L 02/02/19 10:29 Blood Pressure 216/93 H 02/02/19 10:29 Pulse Oximetry 99 02/02/19 10:29 Temperature 36.7 C 02/02/19 10:29 Temperature Source Temporal Artery Scan 02/02/19 10:29 Pulse 79 02/02/19 10:29 Respiratory Rate 11 L 02/02/19 10:29 Blood Pressure 216/93 H 02/02/19 10:29 Blood Pressure Position Supine 02/02/19 10:29 Pulse Oximetry 99 02/02/19 10:29 Oxygen Delivery Method Room Air 02/02/19 10:29 Oxygen Flow Rate 0 02/02/19 10:29 Pain Level 6 02/02/19 10:29 Procedures Epistaxis Control Time Out Performed: Yes Nostril: right Nose Prepped With: lidocaine Direct Inspection: yes and anterior source identified Cautery Used: silver nitrate
[2019-02-02] MEDS: Silver Nitrate Stick 1 EACH (10:53)
[2019-02-02] MEDS: Acetaminophen 500 MG TAB 1000 MG PO (10:53)
[2019-02-02 10:57] LABS: Bilirubin Negative (Negative); Blood Trace-intact (Negative); Clarity Clear (Clear); Glucose Negative (Negative); Ketones Negative (Negative); Leukocyte Esterase Negative (Negative); Nitrite Negative (Negative); Specific Gravity 1.015 (1.005-1.025); Urobilinogen 0.2 EU/dL (Up TO 0.2); pH 7.5 (5-8)
[2019-02-02 11:04] LABS: Bacteria Negative HPF (Negative); C & S Indicated? No; Casts Negative LPF (Negative); Crystals Negative HPF (Negative); Epithelial Cells Negative HPF (Negative); Mucus Negative (Negative); RBC 0-2 (0-2); WBC 0-2 HPF (0-5)
--- NOTE | 2019-02-02 11:12 | DI.CT_ITS ---
SYMPTOMS/DIAGNOSIS: FREQUENT FALLS, HEADACHE NONCONTRAST HEAD CT: Comparison is made with [id number]. No intracranial hemorrhage, mass or infarct is seen. There is atrophy consistent with the patient's age. There are mild white matter changes consistent with small vessel disease. The ventricles are normal in size. There is no evidence of skull fracture. The sinuses and mastoid air cells appear clear where visualized. IMPRESSION: Mild atrophy. No acute abnormality.
[2019-02-02 11:26] LABS: Absolute Basophil Count 0.02 k/cumm (0.0-0.2); Absolute Eosinophil Count 0.09 k/cumm (0.0-0.7); Absolute Lymphocyte Count 1.12 k/cumm (1.2-3.4); Absolute Monocyte Count 0.32 k/cumm (0.11-0.7); Absolute Neutrophil Count 2.34 k/cumm (1.2-6.7); Basophils % 0.5; Eosinophils % 2.3; HCT 34.9 % (36.0-46.0); HGB 11.8 g/dL (12.0-15.5); Lymphocytes % 28.8; Mean Corp. HGB Concentration 33.8 g/dL (32.0-36.0); Mean Corpuscular Hemoglobin 32.9 pg (27.0-33.0); Mean Corpuscular Volume 97.2 fL (80-95); Mean Platelet Volume 9.4 fL (8.0-11.0); Monocytes % 8.2; Neutrophils % 60.2; RBC 3.59 m/cumm (4.00-5.20); RBC Distribution Width 12.2 % (11.7-14.6); White Blood Cell Count 3.89 k/cumm (4.4-10.8)
[2019-02-02 11:38] LABS: Prothrombin Time 10.1 sec (9.3-11.0)
[2019-02-02 11:45] LABS: ALT 30 U/L (12-78); AST 19 U/L (15-37); Albumin 3.6 g/dL (3.4-5.0); Alkaline Phosphatase 55 U/L (46-116); BUN 21 mg/dL (7-18); Bilirubin, Total 0.4 mg/dL (0.2-1.0); CREATININE 0.84 mg/dL (0.55-1.02); Calcium 10.4 mg/dL (8.5-10.1); Chloride 106 mmol/L (98-107); Glucose 133 mg/dL (70-100); Magnesium 1.9 mg/dL (1.8-2.4); Potassium 3.8 mmol/L (3.5-5.1); Sodium 141 mmol/L (136-145); Total Protein 7.2 g/dL (6.4-8.2)
[2019-02-02 11:53] LABS: Troponin I < 0.05 ng/mL (0.00-0.06)
[2019-02-02 12:19] LABS: Diff Comment PLT Morph Reviewed; Platelet Count 97 x1000/uL (130-400); RBC Morphology Normal
--- NOTE | 2019-02-02 13:45 | DI.VRAD_ITS ---
EXAM: CT Head Without Contrast EXAM DATE/TIME: 02/02/2019 12:22 PM CLINICAL HISTORY: 78 years old, female; Fever TECHNIQUE: Imaging protocol: Computed tomography images of the head without contrast. Coronal and sagittal reformatted images were created and reviewed. COMPARISON: CT HEAD CERVICAL SPINE WO 11/21/2018 3:48 PM FINDINGS: Brain: There is slight sulcal prominence for a patient of this age. There are mild periventricular white matter changes consistent with small vessel disease. Ventricles: The ventricular system is midline and symmetrical. It is slightly dilated for a patient of this age. Bones/joints: Unremarkable. No acute fracture. Sinuses: There is slight mucosal thickening of the ethmoid sinuses. There is slight mucosal thickening of the sphenoid sinuses. Mastoid air cells: Visualized mastoid air cells are well aerated. No mastoid effusion. Soft tissues: Unremarkable. IMPRESSION: Atrophy as above. Sinusitis as above. Mild periventricular white matter changes consistent with small vessel disease. Dictated and Authenticated by: Rusty Lamb MD. Ordering:BRITTANY Islas MD
== END 2019-02-02 13:05 | disposition home or self-care (01) ==
PROVIDERS: Emergency Provider Emergency Medicine; PCP Nurse Practitioner Adult Health
DX: R04.0 Epistaxis (principal); I10 Essential (primary) hypertension; R51 Headache; Z79.01 Long term (current) use of anticoagulants
CPT/HCPCS: 30901; 36415; 80053; 99283; 70450; 81003; 81015; 83735; 84484; 85025; 85610

== ENCOUNTER → 2019-03-01 09:41 | Outpatient (BNVA) | payer MEDICARE, BC, SELFPAY | PROVIDERS: PCP Nurse Practitioner Adult Health; Referring Provider Nurse Practitioner Adult Health; Visit Provider Orthopaedic Surgery | DX: M65.341 Trigger finger, right ring finger (principal); M65.332 Trigger finger, left middle finger; M65.342 Trigger finger, left ring finger; E11.42 Type 2 diabetes mellitus with diabetic polyneuropathy; I10 Essential (primary) hypertension | CPT/HCPCS: 99203; 99214 ==

== ENCOUNTER 2019-03-01 11:51 | Day surgery (SDC) | payer MEDICARE, BC, SELFPAY ==
[2019-03-01 12:12] VITALS: BP 165/95; PULSE 85; RESP 16; TEMP 36.6; O2SAT 100
[2019-03-01] MEDS: Lidocaine 2% Multi-Dose 50 ML VIAL (14:15)
--- NOTE | 2019-03-01 14:29 | W.PM.DSUDISC ---
Discharge Plan Disposition Patient Disposition: HOME Condition: Good Discharge Details Reason For Visit: RRF TRIGGER FINGER Attending Provider: Roshan Machuca Primary Care Provider: Linn Paulino Home Meds and New Rx's Prescriptions: No Action tramadol 50 mg tablet 25 mg PO BID MDD 50mg PRN (Reason: pain) Qty: 28 RF: 0 losartan 50 mg tablet 50 mg PO BID RF: 0 cyanocobalamin (vitamin B-12) 1,000 MCG tablet 1,000 mcg PO DAILY Qty: 90 RF: 3 cholecalciferol (vitamin D3) [Vitamin D3] 1,000 UNIT capsule 1,000 unit PO BID RF: 0 nitroglycerin [Nitrostat] 0.4 MG tablet, sublingual 0.4 mg Sublingual Q5 MIN PRN X3 PRNQty: 25 RF: 12 magnesium oxide 400 MG tablet 400 mg PO DAILY Qty: 250 RF: 6 Med Offloader Brace Qty: 1 RF: 0 (DME) blood-glucose meter [ikaSystemsStyle Lite Meter] kit See Dose Instructions .ROUTE .MEDSUPPLY Qty: 1 RF: 0 Eliquis 5 mg tablet 5 mg PO BID Qty: 180 RF: 3 aspirin [Aspirin Low-Strength] 81 mg tablet,chewable 81 mg PO DAILY Qty: 90 RF: 3 atorvastatin 40 mg tablet 40 mg PO DAILY Qty: 90 RF: 3 (DME) Blood Glucose Test strip 1 ea Miscellaneous AC & HS Qty: 120 RF: 3 gabapentin 300 mg capsule 300 mg PO as directed MDD 900 Qty: 270 RF: 3 lamotrigine [Lamictal] 100 mg tablet 100 mg PO BID Qty: 180 RF: 3 (DME) lancets [FreeStyle Lancets] 28 gauge misc 1 ea Miscellaneous as directed Qty: 150 RF: 11 lidocaine 5 % adhesive patch,medicated 1 patch TP DAILY Qty: 15 RF: 12 nystatin 100,000 unit/gram cream 1 applic TP BID Qty: 30 RF: 3 (DME) pen needle, diabetic [Pen Needle] 31 gauge x 5/16 needle 1 ea Miscellaneous QID Qty: 100 RF: 11 clindamycin HCl 150 mg capsule 600 mg PO ONCE Qty: 4 RF: 6 carvedilol 6.25 mg tablet 9.375 mg PO BID RF: 0 lorazepam 0.5 mg tablet 0.5 mg PO BID MDD 1 mg Qty: 56 RF: 0 mirtazapine 15 mg tablet 15 mg PO QHS Qty: 90 RF: 3 acetaminophen [Tylenol] 325 MG tablet 650 mg PO Q4H PRN PRNQty: 0 RF: 0 Discharge Instructions Additional Instructions: Bend and straighten fingers of R hand 10 times/hour when awake. Keep dressings dry and in place for 48 hours. After 48 hours, remove dressings. May then shower or wash hand and get stitches wet. Leave incision uncovered when it is dry and sealed. Take tylenol for pain , if needed. Follow up in 's office in 2 weeks for suture removal. Referrals: Roshan Machuca MD [ [facility] STAFF PHYSICIAN] - (f/u in 2 weeks.) Activity:: Activity as Tolerated Remove Dressings/Wound Care:: 48 hours Shower/Bathe:: 48 hours Diet:: As Tolerated Discharge Orders Discharge Orders: Discharge Order (Routine); Ordered 03/01/19 Ordered By: Roshan Machuca DS: Diagnosis Discharge Diagnosis (1) Trigger finger, right ring finger: Status: Acute
--- NOTE | 2019-03-02 07:34 | ROE_ITS ---
REPORT OF OPERATIVE PROCEDURE DATE OF SURGERY March 01, 2019 PREOPERATIVE DIAGNOSIS Trigger right ring finger. POSTOPERATIVE DIAGNOSIS Trigger right ring finger. PROCEDURE Tendon sheath incision for trigger finger release, right ring finger. ANESTHESIA Local infiltration 1% Xylocaine solution and 0.5% Marcaine with epinephrine solution. SURGEON Roshan Machuca M.D. INDICATIONS This is a 78-year-old white female who presented to my office with a right ring finger that was justin d in flexion. It had been previously triggering for several months. One week ago, the finger became l ocked in flexion and she could not extend her finger. Not only is it painful, but the flexed finger g ets in the way of routine activities and when her finger catches, it is very painful. Trigger finger release was recommended to alleviate her pain and restore good motion to her finger. The risks and co mplications of the procedure were explained to the patient in detail preoperatively DESCRIPTION OF PROCEDURE The patient was taken the Operating Room on 03/01/2019. The right hand was then prepped and draped f ree in the usual sterile fashion. After this, she was placed supine on the operating table. I infiltrated over the flexor sheath of the left ring finger with 1% Xylocaine solution. Once she vargas d good analgesia, I made a transverse incision about 5 mm distal to the distal palmar flexion crease and centered over the flexor sheath of the left ring finger. The incision was about 2 cm in length. The incision was carried down through the skin and subcu. Blunt tip Littler scissors were then used t o mobilize the soft tissue away from the flexor sheath. Small Heiss retractors were inserted and the flexor sheath was clearly visualized. I then incised the proximally bandar of the flexor sheath in t he midline with a scalpel. I then used Littler scissors to complete the release of the proximal pulle y proximally and distally. The patient was then asked to actively flex and extend her ringer finger. She was able to flex her finger fully. She still had a mild flexion contracture of the PIP joint acti vely. Passively, I could extend her PIP joint fully. The wound was irrigated with saline solution. The wound margins were infiltrated with 0.5% Marcaine with epinephrine solution. The skin edges were approximated with two interrupted #4-0 Nylon sutures. The wound was dressed with Xeroform gauze, sterile gauze, 4x4s, and wrapped with a 2-inch cling joseph ge for a light pressure dressing. The patient tolerated the procedure well and discharged to the Day Surgery Unit in good condition. She was discharged to the Day Surgery Unit in good condition. She was discharged home from the Day Surgery Unit with instructions to try to bend and straighten all of the fingers of her right hand 10 times an hour while awake to prevent stiffness and swelling. She is to keep the dressings dry and intact for 48 hours. After 48 hours, she may remove the dressings, shower or wash her hand and get her incision wet. She can leave the incision uncovered when it is dry and sealed. She will take Tylenol or ibuprofen for pain. She will followup in Dr. Machuca's office in two weeks for suture removal.
== END 2019-03-01 15:03 | disposition home or self-care (01) ==
PROVIDERS: PCP Nurse Practitioner Adult Health; Visit Provider Orthopaedic Surgery
PROC: (CPT 26055; principal; 2019-03-01 14:00)
DX: M65.341 Trigger finger, right ring finger (principal)
CPT/HCPCS: 26055; 99214

== ENCOUNTER → 2019-03-14 11:01 | Outpatient (BNVA) | payer MEDICARE, BC, SELFPAY | PROVIDERS: PCP Nurse Practitioner Adult Health; Referring Provider Nurse Practitioner Adult Health; Visit Provider Orthopaedic Surgery | DX: Z47.89 Encounter for other orthopedic aftercare (principal); M24.541 Contracture, right hand; I12.9 Hypertensive chronic kidney disease with stage 1 through stage 4 chronic kidney disease, or unspecified chronic kidney disease; E11.42 Type 2 diabetes mellitus with diabetic polyneuropathy; E11.22 Type 2 diabetes mellitus with diabetic chronic kidney disease; N18.3 Chronic kidney disease, stage 3 (moderate) ==

== ENCOUNTER 2019-03-27 14:11 | Outpatient (REF) | payer MEDICARE, BC, SELFPAY ==
[2019-03-27 18:43] LABS: Anion Gap 9.7 mmol/L (3-11); BUN 20 mg/dL (7-18); CO2 27.3 mmol/L (21.0-32.0); CREATININE 0.98 mg/dL (0.55-1.02); Calcium 10.1 mg/dL (8.5-10.1); Chloride 105 mmol/L (98-107); Estimated GFR 55.03 (mL/min/1.73m2); Glucose 101 mg/dL (70-100); Magnesium 1.9 mg/dL (1.8-2.4); Potassium 4.2 mmol/L (3.5-5.1); Sodium 142 mmol/L (136-145)
[2019-04-03 10:20] LABS: IgA 221 mg/dL (85-499); Interpretation SEE COMMENTS; Tissue Transglutaminase IgA <1.2 U/mL (<4.0)
== END 2019-03-27 14:31 ==
LOC: LBN 14:11
PROVIDERS: PCP Nurse Practitioner Adult Health; Visit Provider Nurse Practitioner Adult Health
DX: I10 Essential (primary) hypertension (principal); Z79.899 Other long term (current) drug therapy; R19.7 Diarrhea, unspecified
CPT/HCPCS: 80048; 82784; 83516; 83735

== ENCOUNTER 2019-03-30 09:13 | Outpatient (CLI) | payer MEDICARE, BC, SELFPAY ==
--- NOTE | 2019-03-30 12:00 | DI.MAMMO_ITS ---
EXAM: MG MAMMO SCREENING CLINICAL HISTORY: Screening, Z12.31. TECHNIQUE: Mammograms were interpreted according to the usual protocol including computer analysis w 6Sense CAD system, tomosynthesis and C-view imaging. COMPARISON: The patient has had previous mammograms, which were not extant at the time of this exami [facility], [place]. FINDINGS: The breast tissue is of moderate radiodensity. There is no evidence of a dominant mass. There are no suspicious calcifications. There is nothing specific on the present examination to suggest a malign rogelio; however, if previous examinations can be retrieved, an addendum report will follow. IMPRESSION: This study gets a category 1, annual screening mammography recommended. BI-RADS category 2
== END 2019-03-30 09:33 ==
PROVIDERS: PCP Nurse Practitioner Adult Health; Visit Provider Nurse Practitioner Adult Health
DX: Z12.31 Encounter for screening mammogram for malignant neoplasm of breast (principal)
CPT/HCPCS: 77063; 77067

== ENCOUNTER 2019-05-24 11:53 | Outpatient (REF) | payer MEDICARE, SELFPAY ==
[2019-05-25 12:34] LABS: Campylobacter PCR Negative (Negative); Salmonella PCR Negative (Negative); Shigella/Enteroinvasive Ecoli Negative (Negative)
[2019-05-29 14:49] LABS: Shiga Toxin PCR Negative (Negative)
== END 2019-05-24 12:13 ==
LOC: LBN 11:53
PROVIDERS: PCP Nurse Practitioner Adult Health; Visit Provider Nurse Practitioner Adult Health
DX: R19.7 Diarrhea, unspecified (principal)
CPT/HCPCS: 87505; 83630; 87324

== ENCOUNTER 2019-06-15 11:03 | Emergency (ER) | payer MEDICARE, BC, SELFPAY ==
[2019-06-15 11:10] VITALS: BP 174/82; PULSE 78; RESP 16; TEMP 36.2; O2SAT 100
--- NOTE | 2019-06-15 11:24 | ED.GENADUL_ITS ---
Discharge Plan Disposition Patient Disposition: HOME Condition: Improving Discharge Details Chief Complaint: Abd Prob Clinical Impression: Abdominal pain, RUQ Primary Care Provider: Linn Paulino ED Provider: Jenny Morales Home Meds and New Rx's Prescriptions: New omeprazole 20 mg tablet,delayed release (DR/EC) 20 mg PO DAILY Qty: 20 RF: 0 No Action nitroglycerin [Nitrostat] 0.4 mg tablet, sublingual 0.4 mg Sublingual Q5 MIN PRN X3 PRN (Reason: chest pain) Qty: 20 RF: 1 lorazepam 0.5 mg tablet 0.5 mg PO BID MDD 1 mg Qty: 56 RF: 2 mirtazapine 7.5 mg tablet 7.5 mg PO QHS Qty: 90 RF: 3 mirtazapine 15 mg tablet 15 mg PO QHS Qty: 90 RF: 3 Shingrix (PF) 50 mcg/0.5 mL suspension for reconstitution 50 mcg IM ONCE Qty: 1 RF: 1 losartan 50 mg tablet 50 mg PO BID RF: 0 tramadol 50 mg tablet 25 - 50 mg PO BID MDD 50mg PRN (Reason: pain) Qty: 28 RF: 0 cyanocobalamin (vitamin B-12) 1,000 MCG tablet 1,000 mcg PO DAILY Qty: 90 RF: 3 cholecalciferol (vitamin D3) [Vitamin D3] 1,000 UNIT capsule 1,000 unit PO BID RF: 0 (DME) blood-glucose meter [FreeStyle Lite Meter] kit See Dose Instructions .ROUTE .MEDSUPPLY Qty: 1 RF: 0 Eliquis 5 mg tablet 5 mg PO BID Qty: 180 RF: 3 aspirin [Aspirin Low-Strength] 81 mg tablet,chewable 81 mg PO DAILY Qty: 90 RF: 3 atorvastatin 40 mg tablet 40 mg PO DAILY Qty: 90 RF: 3 (DME) Blood Glucose Test strip 1 ea Miscellaneous AC & HS Qty: 120 RF: 3 gabapentin 300 mg capsule 300 mg PO as directed MDD 900 Qty: 270 RF: 3 lamotrigine [Lamictal] 100 mg tablet 100 mg PO BID Qty: 180 RF: 3 (DME) lancets [FreeStyle Lancets] 28 gauge misc 1 ea Miscellaneous as directed Qty: 150 RF: 11 lidocaine 5 % adhesive patch,medicated 1 patch TP DAILY Qty: 15 RF: 12 nystatin 100,000 unit/gram cream 1 applic TP BID Qty: 30 RF: 3 clindamycin HCl 150 mg capsule 600 mg PO ONCE Qty: 4 RF: 6 carvedilol 6.25 mg tablet 9.375 mg PO BID RF: 0 magnesium oxide 400 mg (241.3 mg magnesium) tablet 400 mg PO DAILY Qty: 250 RF: 6 acetaminophen [Tylenol] 325 MG tablet 650 mg PO Q4H PRN PRNQty: 0 RF: 0 Discharge Instructions Instructions: Peptic Ulcer (ED) Additional Instructions: Drink plenty of fluids. Use medication as prescribed. Follow-up promptly with your primary care doctor. Follow-up with net developer with [facility]. Rest activities as tolerated. Obtain and return stool samples at your convenience per your instructions to be followed up with your primary care doctor Return to the emergency room for any worsening, alarming or increased symptoms if needed sooner. Incidental findings on your CT The heart is enlarged. There is a tiny hiatal hernia. Liver shows a tiny cyst inferiorly. There is a moderate to increased quantity of stool throughout the colon. The aorta shows atherosclerotic changes. There is slight dilatation distally to 2.3 cm. There is a slight compression of the superior endplate of T11. There is a tiny fatty-containing inguinal hernia. Please followup with your PCP to review your incidental CT findings. Medical Decision Making Is a pleasant 79-year-old patient who has been struggling for 1 year with diarrhea for which she has had cultures as well as colonoscopy. Patient presents today for 3 days of escalating upper abdominal pain on the right which she indicates radiates toward the back. Patient denies any chest or shoulder pain associated. Patient does report increase in pain with deep breathing but no associated cough. Patient denies fevers or chills. Patient reports persistent diarrhea. No associated blood or mucus with bowel movements. Patient does have a significant medical history including chronic A. fib, chronic kidney disease, coronary artery disease, diabetes type 2, hypertension, hyperlipidemia, osteoporosis. Patient reports in general she has had weight loss in the last 6 months, family at the bedside reports approximately 50 pounds. Patient is concerned specifically with the last 3 days of escalating right-sided pain. Patient describes a worsening of her pain after attempting eating. Patient has had decreased p.o. intake for the last 3 days for this reason. Patient does report 1 month ago a similar pain experienced which lasted only less than 1 day resolved entirely on its own, she never seek medical care during this time. Given patient's right-sided abdominal pain worse with eating initial evaluation to include labs and an ultrasound of her right upper quadrant to rule out gallbladder disease. Urinalysis to be obtained. IV fluids provided given patient feels and appears dehydrated given her lack of p.o. intake in the last few days. EKG reveals sinus rhythm with a rate of 67. Mild first-degree AV block. The nonspecific T wave changes were noted in 3 V4 V5 and V6. Unchanged from previous EKG 02/02/2019. This was reviewed with Dr. Durham Patient's labs today do not reveal elevated white blood cell count. Electrolytes within normal limits. Nothing to indicate infection in urine. Ultrasound of her abdomen does not reveal any acute abnormalities, mild right renal fullness. Therefore CT of abdomen and pelvis was ordered with and without. Patient quite comfortable after receiving morphine. No persistent abdominal pain. On exam patient does remain to have right upper quadrant abdominal tenderness on exam. CT reveals EXAM: CT ABDOMEN AND PELVIS WO/W CLINICAL HISTORY: RUQ and right flank pain TECHNIQUE: After IV and without oral contrast. COMPARISON: CT ABDOMEN AND PELVIS W from 11/01/2018 FINDINGS: The heart is enlarged. A pacemaker is noted. There is a tiny hiatal hernia. Lung bases are clear. Liver shows a tiny cyst inferiorly. The gallbladder, spleen, pancreas, kidneys and adrenals are unremarkable. There is a moderate to increased quantity of stool throughout the colon. No abnormal dilatation or inflammatory changes are seen. There is no evidence of appendicitis although the appendix is not definitely identified. The patient is status post hysterectomy. The bladder and ovaries are unremarkable. The aorta shows atherosclerotic changes. There is slight dilatation distally to 2.3 cm. There is a slight compression of the superior endplate of T11. There is a tiny fatty- containing inguinal hernia. IMPRESSION: No acute abnormality. CT was discussed with the patient. No acute findings to explain patient's pain. Given patient does have right-sided abdominal pain which was significantly worse immediately after eating duodenal ulcer remains in the differential diagnosis. Inflammatory bowel and chronic diarrhea remain in differential. GI cocktail was offered. Will also recommend trial of reflux medication which patient used to be taking but discontinued 2 years ago. Encouraged GI follow- up. Patient has follow-up with PCP scheduled for Wednesday. Alarming symptoms for which patient should have immediate return were discussed. We did discuss admission to the hospital given patient's weight loss, difficulty eating and drinking however at this time patient does not want to be admitted to the hospital would prefer to pursue outpatient follow-up. Would prefer trial of reflux medication. Patient feeling improved at this time. The patient was stable and requested discharge. Prior to discharge, my usual and customary return precautions were reviewed with the patient - this included follow-up instructions and reasons to return to the Emergency Department if conditions worsens, does not improve as expected, or other new concerns arise. HPI General Date/Time Provider Initiated Documentation: 06/15/19 11:07 . HPI Narrative: Is a very pleasant 79-year-old patient who presents for 3 days of right upper quadrant abdominal pain. Patient reports pain is significantly worse after eating. Patient reports pain in the right upper quadrant with mildly radiates around the flank. Patient denies fever or chills. Patient does report a similar episode of pain lasting less than 1 day approximately 1 month ago which fully resolved on its own. Patient denies abdominal distention. Patient denies chest pain, difficulty breathing or shortness of breath. Patient does report increase in pain with deep breathing. Decreased p.o. intake in the last 3 days due to pain. Patient does report a history of approximately 1 year of intermittent diarrhea for which she has had a colonoscopy as well as stool cultures. Patient has identified no explanation for her loose stools. Related Data Home Medications Medication Instructions Recorded Confirmed acetaminophen [Tylenol] 650 mg PO Q4H PRN PRN #0 tab 01/15/16 05/19/19 cyanocobalamin (vitamin B-12) 1,000 mcg PO DAILY #90 tab-cap 02/10/16 05/19/19 cholecalciferol (vitamin D3) 1,000 unit PO BID cap 10/05/16 05/19/19 [Vitamin D3] blood-glucose meter #1 each 04/13/18 05/19/19 apixaban 5 mg tablet 5 mg PO BID #180 tab 07/19/18 05/19/19 aspirin 81 mg chewable tablet 81 mg PO DAILY #90 tab 07/19/18 05/19/19 atorvastatin 40 mg tablet 40 mg PO DAILY #90 tab 07/19/18 05/19/19 blood sugar diagnostic #120 strip 07/19/18 05/19/19 gabapentin 300 mg capsule 300 mg PO as directed #270 cap MDD 07/19/18 05/19/19 900 lamotrigine 100 mg tablet 100 mg PO BID #180 tab-cap 07/19/18 05/19/19 lancets 28 gauge #150 ea 07/19/18 05/19/19 lidocaine 5 % topical patch 1 patch TP DAILY #15 each 07/19/18 05/19/19 nystatin 100,000 unit/gram topical 1 applic TP BID #30 gm 07/19/18 05/19/19 cream clindamycin HCl 150 mg capsule 600 mg PO ONCE #4 cap 08/25/18 05/19/19 carvedilol 6.25 mg tablet 9.375 mg PO BID tab 11/25/18 05/19/19 losartan 50 mg tablet 50 mg PO BID tab 12/09/18 05/19/19 lorazepam 0.5 mg tablet 0.5 mg PO BID #56 tab MDD 1 mg 03/03/19 05/19/19 nitroglycerin 0.4 mg sublingual 0.4 mg SUBLINGUAL Q5 MIN PRN X3 03/03/19 05/19/19 tablet PRN #20 tab varicella-zoster gE-AS01B (PF) 50 50 mcg IM ONCE #1 each 03/31/19 05/19/19 mcg/0.5 mL IM susp, kit magnesium oxide 400 mg (241.3 mg 400 mg PO DAILY #250 tab-cap 04/28/19 05/19/19 magnesium) tablet mirtazapine 15 mg tablet 15 mg PO QHS #90 tab 04/28/19 05/19/19 mirtazapine 7.5 mg tablet 7.5 mg PO QHS #90 tab 04/28/19 05/19/19 tramadol 50 mg tablet 25 - 50 mg PO BID PRN #28 tab MDD 05/19/19 05/19/19 50mg omeprazole 20 mg PO DAILY #20 tab 06/15/19 Previous Rx's Medication Instructions Recorded acetaminophen [Tylenol] 650 mg PO Q4H PRN PRN #0 tab 01/15/16 blood-glucose meter #1 each 04/13/18 apixaban 5 mg tablet 5 mg PO BID #180 tab 07/19/18 aspirin 81 mg chewable tablet 81 mg PO DAILY #90 tab 07/19/18 atorvastatin 40 mg tablet 40 mg PO DAILY #90 tab 07/19/18 blood sugar diagnostic #120 strip 07/19/18 gabapentin 300 mg capsule 300 mg PO as directed #270 cap MDD 07/19/18 900 lamotrigine 100 mg tablet 100 mg PO BID #180 tab-cap 07/19/18 lancets 28 gauge #150 ea 07/19/18 lidocaine 5 % topical patch 1 patch TP DAILY #15 each 07/19/18 nystatin 100,000 unit/gram topical 1 applic TP BID #30 gm 07/19/18 cream clindamycin HCl 150 mg capsule 600 mg PO ONCE #4 cap 08/25/18 lorazepam 0.5 mg tablet 0.5 mg PO BID #56 tab MDD 1 mg 03/03/19 nitroglycerin 0.4 mg sublingual 0.4 mg SUBLINGUAL Q5 MIN PRN X3 03/03/19 tablet PRN #20 tab varicella-zoster gE-AS01B (PF) 50 50 mcg IM ONCE #1 each 03/31/19 mcg/0.5 mL IM susp, kit mirtazapine 15 mg tablet 15 mg PO QHS #90 tab 04/28/19 mirtazapine 7.5 mg tablet 7.5 mg PO QHS #90 tab 04/28/19 tramadol 50 mg tablet 25 - 50 mg PO BID PRN #28 tab MDD 05/19/19 50mg omeprazole 20 mg PO DAILY #20 tab 06/15/19 Allergies Allergy/AdvReac Type Severity Reaction Status Date / Time nifedipine Allergy Mild Hives Verified 06/15/19 11:21 amiodarone AdvReac Severe tremor Verified 06/15/19 11:21 oxycodone AdvReac Severe heavy Verified 06/15/19 11:21 sedation amoxicillin AdvReac Intermediate sore Verified 06/15/19 11:21 burning mouth Anesthetics - Amide Type AdvReac Intermediate anxious Verified 06/15/19 11:21 diazepam AdvReac Intermediate Agitation Verified 06/15/19 11:21 indomethacin AdvReac Intermediate headache, Verified 06/15/19 11:21 flush metformin AdvReac Intermediate Diarrhea Verified 06/15/19 11:21 General Stated Complaint: Abd Prob ANASTACIA: 3 Review of Systems All systems reviewed & are unremarkable except as noted in HPI and below Constitutional Constitutional: Denies chills, Denies fatigue, Denies fever(s), Denies headache(s) and Denies malaise ENT Ears, Nose, Mouth, and Throat: Denies headache(s) Cardiovascular Cardiovascular: Denies chest pain and Denies dyspnea Respiratory Respiratory: Denies cough, Denies dyspnea, Denies stridor and Denies wheezing Gastrointestinal Gastrointestinal: Reports abdominal pain, Denies constipation, Denies diarrhea and Denies vomiting Genitourinary Genitourinary: Denies dysuria, Denies urinary hesitancy and Denies urinary urgency Neurologic Neurologic: Denies headache(s) Endocrine Endocrine: Denies fatigue Allergic/Immunologic Allergic/Immunologic: Denies wheezing [facility] Medical History ASCVD (arteriosclerotic cardiovascular disease) (Chronic) cardiac cath Chest pain (Resolved) Chronic atrial fibrillation (Chronic 11/19/15) s/p Ablation 02/2016 Chronic kidney disease, stage III (moderate) (Chronic 08/17/11) Chronic nonalcoholic liver disease (Chronic 08/17/11) Chronic pain (Chronic) Back; L-T Tramadol RX Coronary artery disease (Chronic) a. inferior [place] 1984 b. [place] with CABG 1992 Patient is doing well with no chest pain. Continue on current medications. Diabetic neuropathy (Chronic 03/07/15) Dr Robbins Diarrhea (Acute) Kefir started 03/28/2019 & helped, plus no Mg++ DM type 2, controlled, with complication (Chronic) complications: neuropathy, cardiovascular disease Essential hypertension (Chronic 08/17/11) responsive to low dose propranolol; avoid diuretics due to low Magnesium Essential tremor (Chronic 04/02/08) R > L, LEVYAL PRICE 2008; REMI [id number]; responds to low dose propranolol Fracture of rib of right side (Resolved 08/26/15) Fracture of right shoulder (Resolved 08/26/15) Frequent falls (Chronic 04/05/17) Generalized atherosclerosis (Chronic 08/17/11) H/O CABG 1993; Cath 11/2015: all three grafts open; EF 60%; JUANPABLO 02/2015 EF 55% GERD (gastroesophageal reflux disease) (Chronic) Gouty arthropathy, unspecified (Chronic 08/17/11) Hyperlipidemia (Chronic 08/17/11) Crestor switched to Atorvastatin per ins Hypertension (Chronic) Patient's blood pressure is stable. Continue on current meds. Mid back pain (Resolved) New onset mid back pain without any obvious provocation. There appears to be an abnormal curve of her thoracic spine with dextroscoliosis. This was not noted previously although it may have been overlooked. We shall check for anything acute such as a thoracic compression fracture. If the x-ray shows this, we shall refer her to orthopedics. In the meantime, she had a previous med use agreement with tramadol. Due to her kidney function we did not want to use excess of NSAIDs so it is reasonable to renew this medication temporarily. Cautioned that this may cause excessive drowsiness point combined with lorazepam. If there are no acutely concerning findings on the x-ray, and the pain fails to resolve by its own we can readdress at her next appointment. Osteoporosis (Chronic) See 10/2018 CT T11 compression fracture 2017 DEXA osteopenia Considering Fosamax (discussed 06/02/2019) Panic anxiety syndrome (Chronic 03/20/14) L-T RX Lorazepam Presence of permanent cardiac pacemaker (Chronic) Patient's dual-chamber pacemaker is functioning normally with ample generator life remaining. She has had no further PAF episodes noted. Her presenting rhythm is atrial pacing and underlying rhythm is sinus bradycardia. No reprogramming needed. She does not use remote monitoring. 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 s/p pacemaker b. declined ablation at [facility] [place] Patient's dual-chamber pacemaker is functioning normally with ample generator life remaining. She has had no further PAF episodes noted. Her presenting rhythm is atrial pacing and underlying rhythm is sinus bradycardia. No reprogramming needed. She does not use remote monitoring. Trigger finger, right ring finger (Inactive) Unexplained weight loss (Acute) Social History Smoking/Tobacco Use Status: Never Second Hand Exposure: No Alcohol Intake: never Drug use: Never Substance use type: does not use Adopted: No (raised by Aunt and Uncle) Caregiver/Support person: Yes (youngest daughter: Jacquelyn Chavira is healthcare agent ph:[phone]) Foster care: No Household members: spouse Housing: house Number of Children: 4 What is your relationship status?: Panel score (0-1 are the most socially isolated patients): 1 What type of physical activity do you participate in: none Shasta/Mu-Ism: Nondenominational Seatbelt use: always Drive intox or ride w/intox hazmat cdl driver: No Water heater temp set <120 deg: Yes Working smoke detector in home: Yes Fire extinguisher in home: Yes Carbon monox detector in home: Yes Firearms in home: Yes Do you feel safe at home: Yes Do you feel safe in your relationship?: Yes Additional Social history: [employer]. History History 5 Para Hx # Term Pregnancies 4 Multiple births Hx # Pregnancies Ectopic pregnancies AB induced Hx Number of Living Children AB spontaneous Exam Narrative Exam Narrative: CONST: Healthy appearing patient, in no acute distress. Well hydrated. Alert and alert. EYES: General normal appearance. Alignment normal. Eyelids normal. Conjunctiva normal. Sclera normal. PERRL. NECK: Normal visual inspection. FROM. No lymphadenopathy. Trachea midline. No Midline tenderness. CHEST: Normal insepection of the chest. RESP: Normal respiratory effort. Speaking full sentences. No cough. No wheezing. No retractions. Clear to auscaltation. Breath sound equal and present bilaterally. CARDIO: No JVD. Normal PMI. Regular Rate. Regular Rhythm. Normal peripheral pulses. GI: Normal inspection of abdomen. No distension. Soft. Mild epigastric and right upper quadrant tenderness. Bowel sounds present in all 4 quadrants. No rebound. No gaurding. Back mild right CVA tenderness. Left CVA tenderness on MUSCULOSKELETAL: Normal Gait. FROM of all extremities. Distal neurovascularly intact. Sensation intact distally. SKIN: Normal. Dry. No dermatomal rash Course Vital Signs Vital signs: Vital Signs Temperature 36.2 C L 06/15/19 11:10 Pulse 78 06/15/19 11:10 Respiratory Rate 16 06/15/19 11:10 Blood Pressure 174/82 H 06/15/19 11:10 Pulse Oximetry 100 06/15/19 11:10 Temperature 36.2 C L 06/15/19 11:10 Temperature Source Skin 06/15/19 11:10 Pulse 78 06/15/19 11:10 Respiratory Rate 16 06/15/19 11:10 Respiratory Effort 06/15/19 11:22 Blood Pressure 174/82 H 06/15/19 11:10 Blood Pressure Position Sitting 06/15/19 11:10 Pulse Oximetry 100 06/15/19 11:10 Oxygen Delivery Method Room Air 06/15/19 11:10 Oxygen Flow Rate 0 06/15/19 11:10 Pain Level 5 06/15/19 11:10 Comment 06/15/19 11:10
[2019-06-15] MEDS: Normal Saline Flush 10 ML SYR IVP (11:50)
[2019-06-15] MEDS: Normal Saline 1,000 ML 1000 ML IV (11:50)
[2019-06-15] MEDS: Ondansetron 4 MG/2 ML VIAL IVP (11:59)
[2019-06-15 12:01] LABS: Abs Immature Grans 0.01 k/cumm (0.0-0.09); Absolute Basophil Count 0.01 k/cumm (0.0-0.2); Absolute Eosinophil Count 0.15 k/cumm (0.0-0.7); Absolute Lymphocyte Count 1.46 k/cumm (1.2-3.4); Absolute Neutrophil Count 4.02 k/cumm (1.2-6.7); Basophils % 0.2; Eosinophils % 2.5; HCT 36.9 % (36.0-46.0); HGB 12.3 g/dL (12.0-15.5); Immature Grans % 0.2; Lymphocytes % 24.1; Mean Corp. HGB Concentration 33.3 g/dL (32.0-36.0); Mean Corpuscular Hemoglobin 31.9 pg (27.0-33.0); Mean Corpuscular Volume 95.8 fL (80-95); Mean Platelet Volume 9.3 fL (8.0-11.0); Monocytes % 6.6; Neutrophils % 66.4; Platelet Count 112 x1000/uL (130-400); RBC 3.85 m/cumm (4.00-5.20); RBC Distribution Width 12.7 % (11.7-14.6); White Blood Cell Count 6.05 k/cumm (4.4-10.8)
[2019-06-15 12:19] LABS: ALT 26 U/L (14-59); AST 22 U/L (15-37); Albumin 3.8 g/dL (3.4-5.0); Alkaline Phosphatase 53 U/L (46-116); Anion Gap 9.1 mmol/L (3-11); BUN 23 mg/dL (7-18); Bilirubin, Total 0.5 mg/dL (0.2-1.0); CO2 27.9 mmol/L (21.0-32.0); CREATININE 0.88 mg/dL (0.55-1.02); Calcium 9.9 mg/dL (8.5-10.1); Chloride 104 mmol/L (98-107); Glucose 116 mg/dL (74-106); Lipase 81 U/L (73-393); Potassium 3.6 mmol/L (3.5-5.1); Sodium 141 mmol/L (136-145); Total Protein 7.5 g/dL (6.4-8.2)
[2019-06-15 12:20] LABS: Troponin I < 0.05 ng/Ml (<0.06)
[2019-06-15 12:48] VITALS: BP 188/79; PULSE 78; RESP 17; O2SAT 98
[2019-06-15 12:52] LABS: Bilirubin Negative (Negative); Blood Negative (Negative); Clarity Clear (Clear); Glucose Negative (Negative); Ketones Negative (Negative); Leukocyte Esterase Negative (Negative); Nitrite Negative (Negative); Specific Gravity 1.015 (1.005-1.025); Urobilinogen 0.2 EU/dL (Up TO 0.2); pH 6.5 (5-8)
[2019-06-15 13:00] VITALS: O2SAT 100
--- NOTE | 2019-06-15 13:28 | DI.US_ITS ---
EXAM: US ABDOMEN LIMITED CLINICAL HISTORY: abdominal pain upper abdomen, r/o GB TECHNIQUE: Ultrasound performed using standard protocol. COMPARISON: RENAL COLIC WO CONTRAST from 12/17/2017 CT ABDOMEN PELVIS W from 11/01/2018 CT HEAD WO from 11/01/2018 FINDINGS: Liver is normal in size and echogenicity. No gallstones or gallbladder wall thickening is seen. The re is no biliary dilatation. Right renal pelvis is mildly prominent. No definite hydronephrosis is s een. IMPRESSION: Mildly prominent right renal pelvis.
--- NOTE | 2019-06-15 13:41 | DI.RAD_ITS ---
EXAM: XR CHEST 2V PA AND LATERAL INDICATION: chest pain, modified per provider. COMPARISON: XR CHEST 2V PA AND LATERAL from 11/01/2018 TECHNIQUE: 2D digital imaging was performed. FINDINGS: The heart is mildly enlarged. A pacemaker is again noted. The aorta is tortuous. The lungs appear clear. IMPRESSION: No acute abnormality.
[2019-06-15 13:57] VITALS: BP 179/77; PULSE 60; RESP 16; O2SAT 100
[2019-06-15] MEDS: Omnipaque 350 MG/ML 100 ML BTL IJ (15:19)
--- NOTE | 2019-06-15 15:19 | DI.CT_ITS ---
EXAM: CT ABDOMEN AND PELVIS WO/W CLINICAL HISTORY: RUQ and right flank pain TECHNIQUE: After IV and without oral contrast. COMPARISON: CT ABDOMEN AND PELVIS W from 11/01/2018 FINDINGS: The heart is enlarged. A pacemaker is noted. There is a tiny hiatal hernia. Lung bases are clear. Liver shows a tiny cyst inferiorly. The gallbladder, spleen, pancreas, kidneys and adrenals are unr emarkable. There is a moderate to increased quantity of stool throughout the colon. No abnormal dil atation or inflammatory changes are seen. There is no evidence of appendicitis although the appendix is not definitely identified. The patient is status post hysterectomy. The bladder and ovaries are unremarkable. The aorta shows atherosclerotic changes. There is slight dilatation distally to 2.3 c m. There is a slight compression of the superior endplate of T11. There is a tiny fatty-containing inguinal hernia. IMPRESSION: No acute abnormality.
[2019-06-15 15:33] VITALS: BP 177/78; PULSE 75; RESP 18; TEMP 36.9; O2SAT 98
[2019-06-15 17:06] VITALS: BP 177/78; PULSE 75; RESP 18; TEMP 36.9; O2SAT 98
== END 2019-06-15 17:07 | disposition home or self-care (01) ==
PROVIDERS: Emergency Provider Physician Assistant; PCP Nurse Practitioner Adult Health
DX: R10.11 Right upper quadrant pain (principal); R63.4 Abnormal weight loss; R19.7 Diarrhea, unspecified; E11.22 Type 2 diabetes mellitus with diabetic chronic kidney disease; I12.9 Hypertensive chronic kidney disease with stage 1 through stage 4 chronic kidney disease, or unspecified chronic kidney disease; N18.3 Chronic kidney disease, stage 3 (moderate)
CPT/HCPCS: 36415; 80053; 83690; 93005; 96361; 96374; 96375; 96376; 99285; 71046; 74178; 76705; 81003; 84484; 85025; 93010; J2405; J3490

== ENCOUNTER → 2019-07-26 08:08 | Outpatient (BNVA) | payer MEDICARE, BC, SELFPAY | PROVIDERS: PCP Nurse Practitioner Adult Health; Referring Provider Nurse Practitioner Adult Health; Visit Provider Internal Medicine Cardiovascular Disease | DX: I49.5 Sick sinus syndrome (principal); Z45.010 Encounter for checking and testing of cardiac pacemaker pulse generator [battery] | CPT/HCPCS: 93280; 99212; 99213 ==

== ENCOUNTER → 2019-08-10 13:23 | Outpatient (BNVA) | payer MEDICARE, BC, SELFPAY | PROVIDERS: PCP Nurse Practitioner Adult Health; Referring Provider Nurse Practitioner Adult Health; Visit Provider Internal Medicine Cardiovascular Disease | DX: I25.10 Atherosclerotic heart disease of native coronary artery without angina pectoris (principal); I12.9 Hypertensive chronic kidney disease with stage 1 through stage 4 chronic kidney disease, or unspecified chronic kidney disease; I48.0 Paroxysmal atrial fibrillation; F41.9 Anxiety disorder, unspecified; R01.1 Cardiac murmur, unspecified; N18.3 Chronic kidney disease, stage 3 (moderate); E11.22 Type 2 diabetes mellitus with diabetic chronic kidney disease | CPT/HCPCS: 99204; 99215 ==

== ENCOUNTER 2019-08-20 17:50 | Emergency (ER) | payer MEDICARE, BC, SELFPAY ==
[2019-08-20] VITALS (10 sets, daily range): BP systolic 154–233; BP diastolic 78–105; PULSE 60–82; RESP 13–24; TEMP 36.6; O2SAT 97–98
--- NOTE | 2019-08-20 18:33 | W.ED.GENAD ---
Discharge Plan Disposition Patient Disposition: HOME Condition: Stable Discharge Details Chief Complaint: Dizzy/Sync Clinical Impression: Hypertension Primary Care Provider: Linn Paulino ED Provider: Faye Cross Home Meds and New Rx's Prescriptions: Continued nitroglycerin [Nitrostat] 0.4 mg tablet, sublingual 0.4 mg Sublingual Q5 MIN PRN X3 PRN (Reason: chest pain) Qty: 20 RF: 1 mirtazapine 7.5 mg tablet 7.5 mg PO QHS Qty: 90 RF: 3 mirtazapine 15 mg tablet 15 mg PO QHS Qty: 90 RF: 3 Shingrix (PF) 50 mcg/0.5 mL suspension for reconstitution 50 mcg IM ONCE Qty: 1 RF: 1 nystatin 100,000 unit/gram cream 1 applic TP BID PRNRF: 0 lidocaine 5 % adhesive patch,medicated 1 patch TP DAILY PRNRF: 0 gabapentin 300 mg capsule 300 mg PO as directed RF: 0 lorazepam 0.5 mg tablet 0.5 mg PO BID RF: 0 losartan 50 mg tablet 50 mg PO BID RF: 0 cyanocobalamin (vitamin B-12) 1,000 MCG tablet 1,000 mcg PO DAILY Qty: 90 RF: 3 cholecalciferol (vitamin D3) [Vitamin D3] 1,000 UNIT capsule 1,000 unit PO BID RF: 0 aspirin [Aspirin Low-Strength] 81 mg tablet,chewable 81 mg PO DAILY Qty: 90 RF: 3 clindamycin HCl 150 mg capsule 600 mg PO ONCE Qty: 4 RF: 6 carvedilol 6.25 mg tablet 9.375 mg PO BID RF: 0 omeprazole 20 mg tablet,delayed release (DR/EC) 20 mg PO DAILY Qty: 20 RF: 2 Eliquis 5 mg tablet 5 mg PO BID Qty: 180 RF: 3 atorvastatin 40 mg tablet 40 mg PO DAILY Qty: 90 RF: 3 lamotrigine [Lamictal] 100 mg tablet 100 mg PO BID Qty: 180 RF: 3 tramadol 50 mg tablet 25 - 50 mg PO BID MDD 50mg PRN (Reason: pain) Qty: 28 RF: 0 acetaminophen [Tylenol] 325 MG tablet 650 mg PO Q4H PRN PRNQty: 0 RF: 0 Discharge Instructions Instructions: Hypertension (ED) Additional Instructions: Keep your scheduled appointment tomorrow with PCP. Take medications as directed. Return to the ED for any worsening high blood pressure, blurry vision, headache, chest pain or shortness of breath. Referrals: Linn Paulino TRAFFIC INVESTIGATOR [Primary Care Provider] - Medical Decision Making 79-year-old female presents for hypertension. She does take losartan and carvedilol twice a day on a regular basis. She has a PCP appointment tomorrow. She reports that her blood pressure is been steadily increasing over the last week. Denies chest pain or shortness of breath, does have a intermittent parietal headache which she reports she does not have upon arrival. She is alert and oriented x4. Cardiac work-up ordered including EKG, patient's nightly meds of losartan 50 mg p.o. and carvedilol 9.75 mg ordered. She does have a pacemaker and she is got a history of ablation for A. fib. We will observe her blood pressure. His EKG obtained and reviewed by Dr. Humphries no STEMI, rate of 65 NE 102 QT/QTc 396/412. There is a junctional rhythm old EKG reviewed and rhythm is unchanged. COMPARISON: CR XR CHEST 2V PA LATERAL 06/15/2019 1:41 PM FINDINGS: Tubes, catheters and devices: Dual lead left pacemaker in unchanged position. Lungs: Low lung volumes. No focal consolidation. Pleural space: Unremarkable. No pleural effusion. No pneumothorax. Heart/Mediastinum: Stable enlarged postsurgical cardiomediastinal silhouette. Vasculature: Redemonstrated aortic arch calcifications. Bones/joints: Unremarkable. IMPRESSION: No acute cardiopulmonary process. Thank you for allowing us to participate in the care of your patient. Dictated and Authenticated by: Davidson Gruber MD 08/20/2019 8:06 PM Eastern Time ([place] & [place]) PROCEDURE INFORMATION: Exam: CT Head Without Contrast Exam date and time: 08/20/2019 8:50 PM Age: 79 years old Clinical indication: Pain; Headache not specified; Patient HX: Headache, HTN TECHNIQUE: Imaging protocol: Computed tomography of the head without contrast. Radiation optimization: All CT scans at this facility use at least one of these dose optimization techniques: automated exposure control; mA and/or kV adjustment per patient size (includes targeted exams where dose is matched to clinical indication); or iterative reconstruction. COMPARISON: CT HEAD WO 02/02/2019 11:39 AM FINDINGS: Brain: No hemorrhage. No acute large vascular territory infarct. No mass effect. There is diffuse cerebral atrophy present, consistent with this patient's age. White matter hypoattenuation likely reflects chronic small vessel ischemic changes. Ventricles: Normal. No ventriculomegaly. Bones/joints: Unremarkable. No acute fracture. Sinuses: Visualized sinuses are unremarkable. No fluid levels. Mastoid air cells: Visualized mastoid air cells are well aerated. Soft tissues: Unremarkable. IMPRESSION: No acute intracranial abnormality. Thank you for allowing us to participate in the care of your patient. Dictated and Authenticated by: Davidson Gruber MD-well if he flushes greenick 213: Head CT results are noted above, no acute abnormality noted. Does have some age-related chronic changes. Patient's blood pressure has improved since being here and receiving her nightly dose of medications. Discussed strict return instructions patient does have a PCP appointment tomorrow at 3 PM. Patient's headache has gone away with Tylenol, she still has not complained of any chest pain or shortness of breath so second troponin was canceled. This text was generated using Mtimeation system, please disregard any oddities of phrase or misspellings. HPI General Mode of arrival: ambulatory. Date/Time Provider Initiated Documentation: 08/20/19 18:01. Limitations to Documentation: no limitations. Information obtained by: patient. HPI Narrative: 79-year-old female presents with hypertension. She reports over the last week her blood pressure has steadily increased. Upon arrival it is 233/78. She reports a left parietal headache intermittently which has been more frequent over the last week. She denies any chest pain or shortness of breath upon arrival. She is alert and oriented x4. She denies any blurry vision or double vision. Denies any nausea vomiting diarrhea. She takes carvedilol and losartan which she has been taking as directed. She has an appointment with her PCP tomorrow regarding her blood pressure. Related Data Home Medications Medication Instructions Recorded Confirmed acetaminophen [Tylenol] 650 mg PO Q4H PRN PRN #0 tab 01/15/16 08/20/19 cyanocobalamin (vitamin B-12) 1,000 mcg PO DAILY #90 tab-cap 02/10/16 08/20/19 cholecalciferol (vitamin D3) 1,000 unit PO BID cap 03/27/17 02/09/20 [Vitamin D3] aspirin 81 mg chewable tablet 81 mg PO DAILY #90 tab 07/19/18 08/20/19 clindamycin HCl 150 mg capsule 600 mg PO ONCE #4 cap 08/25/18 08/20/19 carvedilol 6.25 mg tablet 9.375 mg PO BID tab 11/25/18 08/20/19 losartan 50 mg tablet 50 mg PO BID tab 12/09/18 08/20/19 nitroglycerin 0.4 mg sublingual 0.4 mg SUBLINGUAL Q5 MIN PRN X3 03/03/19 08/20/19 tablet PRN #20 tab varicella-zoster gE-AS01B (PF) 50 50 mcg IM ONCE #1 each 03/31/19 08/10/19 mcg/0.5 mL IM susp, kit mirtazapine 15 mg tablet 15 mg PO QHS #90 tab 04/28/19 08/20/19 mirtazapine 7.5 mg tablet 7.5 mg PO QHS #90 tab 04/28/19 08/20/19 omeprazole 20 mg tablet,delayed 20 mg PO DAILY #20 tab 07/07/19 08/20/19 release lidocaine 5 % topical patch 1 patch TP DAILY PRN each 07/26/19 08/20/19 nystatin 100,000 unit/gram topical 1 applic TP BID PRN gm 07/26/19 08/20/19 cream apixaban 5 mg tablet 5 mg PO BID #180 tab 08/01/19 08/20/19 atorvastatin 40 mg tablet 40 mg PO DAILY #90 tab 08/01/19 08/20/19 lamotrigine 100 mg tablet 100 mg PO BID #180 tab-cap 08/01/19 08/20/19 tramadol 50 mg tablet 25 - 50 mg PO BID PRN #28 tab MDD 08/04/19 08/20/19 50mg gabapentin 300 mg capsule 300 mg PO as directed cap 08/10/19 08/20/19 lorazepam 0.5 mg tablet 0.5 mg PO BID tab 08/10/19 08/20/19 Previous Rx's Medication Instructions Recorded acetaminophen [Tylenol] 650 mg PO Q4H PRN PRN #0 tab 01/15/16 aspirin 81 mg chewable tablet 81 mg PO DAILY #90 tab 07/19/18 clindamycin HCl 150 mg capsule 600 mg PO ONCE #4 cap 08/25/18 nitroglycerin 0.4 mg sublingual 0.4 mg SUBLINGUAL Q5 MIN PRN X3 03/03/19 tablet PRN #20 tab varicella-zoster gE-AS01B (PF) 50 50 mcg IM ONCE #1 each 03/31/19 mcg/0.5 mL IM susp, kit mirtazapine 15 mg tablet 15 mg PO QHS #90 tab 04/28/19 mirtazapine 7.5 mg tablet 7.5 mg PO QHS #90 tab 04/28/19 omeprazole 20 mg tablet,delayed 20 mg PO DAILY #20 tab 07/07/19 release apixaban 5 mg tablet 5 mg PO BID #180 tab 08/01/19 atorvastatin 40 mg tablet 40 mg PO DAILY #90 tab 08/01/19 lamotrigine 100 mg tablet 100 mg PO BID #180 tab-cap 08/01/19 tramadol 50 mg tablet 25 - 50 mg PO BID PRN #28 tab MDD 08/04/19 50mg Allergies Allergy/AdvReac Type Severity Reaction Status Date / Time nifedipine Allergy Mild Hives Verified 08/20/19 18:30 amiodarone AdvReac Severe tremor Verified 08/20/19 18:30 oxycodone AdvReac Severe heavy Verified 08/20/19 18:30 sedation amoxicillin AdvReac Intermediate sore Verified 08/20/19 18:30 burning mouth Anesthetics - Amide Type AdvReac Intermediate anxious Verified 08/20/19 18:30 diazepam AdvReac Intermediate Agitation Verified 08/20/19 18:30 indomethacin AdvReac Intermediate headache, Verified 08/20/19 18:30 flush metformin AdvReac Intermediate Diarrhea Verified 08/20/19 18:30 General Stated Complaint: Vascular ANASTACIA: 3 Review of Systems Narrative: Constitutional: Negative for weight loss, alert and oriented, well groomed, normal body habitus, appears comfortable. HEENT: Denies trauma, headaches, blurry vision, nasal discharge, sore throat, trouble swallowing. Chest: Denies chest pain, palpitations, irregular rhythm, . Respiratory: Denies Shortness of breath, cough, hemoptysis. GI: Denies abdominal pain, nausea, vomiting, diarrhea, constipation. : Denies dysuria, hematuria, flank pain, rectal bleeding. Neuro: Denies dizziness, blurry vision, weakness, syncope, headache or facial numbness. Hematologic: Denies easy bruising, intolerance to heat or cold, hair loss. FOR[facility], [facility] Social History Smoking/Tobacco Use Status: Never Second Hand Exposure: No Alcohol Intake: never Drug use: Never Substance use type: does not use Adopted: No (raised by Aunt and Uncle) Caregiver/Support person: Yes (youngest daughter: Jacquelyn Chavira is healthcare agent ph:[phone]) Foster care: No Household members: spouse Housing: house Number of Children: 4 What is your relationship status?: Panel score (0-1 are the most socially isolated patients): 1 What type of physical activity do you participate in: none Shasta/Druze: Restorationist Seatbelt use: always Drive intox or ride w/intox sprinkler driver: No Water heater temp set <120 deg: Yes Working smoke detector in home: Yes Fire extinguisher in home: Yes Carbon monox detector in home: Yes Firearms in home: Yes Do you feel safe at home: Yes Do you feel safe in your relationship?: Yes Additional Social history: Sees Henry Wang. History History 5 Para Hx # Term Pregnancies 4 Multiple births Hx # Pregnancies Ectopic pregnancies AB induced Hx Number of Living Children AB spontaneous Course Vital Signs Vital signs: Vital Signs Temperature 36.6 C 08/20/19 17:56 Pulse 69 08/20/19 17:56 Respiratory Rate 16 08/20/19 17:56 Blood Pressure 233/78 H 08/20/19 17:56 Pulse Oximetry 97 08/20/19 17:56 Temperature 36.6 C 08/20/19 17:56 Temperature Source Temporal Artery Scan 08/20/19 17:56 Pulse 69 08/20/19 17:56 Respiratory Rate 16 08/20/19 17:56 Respiratory Effort Non-Labored 08/20/19 18:28 Blood Pressure 233/78 H 08/20/19 17:56 Blood Pressure Position Sitting 08/20/19 17:56 Pulse Oximetry 97 08/20/19 17:56 Oxygen Delivery Method Room Air 08/20/19 17:56 Oxygen Flow Rate 0 08/20/19 17:56 Comment 08/20/19 17:56
[2019-08-20 19:00] LABS: Bilirubin Negative (Negative); Blood Trace-intact (Negative); Clarity Clear (Clear); Glucose Negative (Negative); Ketones Negative (Negative); Leukocyte Esterase Negative (Negative); Nitrite Negative (Negative); Specific Gravity 1.015 (1.005-1.025); Urobilinogen 0.2 EU/dL (Up TO 0.2)
[2019-08-20 19:12] LABS: Bacteria Negative HPF (Negative); C & S Indicated? No; Casts Negative LPF (Negative); Crystals Negative HPF (Negative); Epithelial Cells Few HPF (Negative); Mucus Negative (Negative); Other Cells Negative (Negative); RBC 0-2 HPF (0-2)
[2019-08-20] MEDS: Carvedilol 6.25 MG TAB 9.375 MG PO (19:19)
[2019-08-20] MEDS: Losartan 25 MG TAB 50 MG PO (19:19)
[2019-08-20] MEDS: Acetaminophen 325 MG TAB (19:26)
--- NOTE | 2019-08-20 19:42 | DI.RAD_ITS ---
EXAM: XR CHEST 2V PA LATERAL INDICATION: Hypertension. COMPARISON: No exams were available for comparison TECHNIQUE: 2D digital imaging was performed. FINDINGS: Pacemaker and sternal wires are again noted. Aorta is calcified. The heart is mildly enlarged. Th e lungs are clear. No thoracic compression fractures are seen. IMPRESSION: No acute abnormality.
[2019-08-20 19:44] LABS: Abs Immature Grans 0.01 k/cumm (0.0-0.09); Absolute Basophil Count 0.01 k/cumm (0.0-0.2); Absolute Eosinophil Count 0.13 k/cumm (0.0-0.7); Absolute Lymphocyte Count 2.14 k/cumm (1.2-3.4); Absolute Monocyte Count 0.39 k/cumm (0.11-0.7); Absolute Neutrophil Count 3.61 k/cumm (1.2-6.7); Basophils % 0.2; Eosinophils % 2.1; HCT 37.3 % (36.0-46.0); HGB 12.7 g/dL (12.0-15.5); Immature Grans % 0.2 %; Mean Corpuscular Hemoglobin 32.6 pg (27.0-33.0); Mean Corpuscular Volume 95.6 fL (80-95); Mean Platelet Volume 9.4 fL (8.0-11.0); Monocytes % 6.2; Neutrophils % 57.3; Platelet Count 112 x1000/uL (130-400); RBC Distribution Width 12.7 % (11.7-14.6); White Blood Cell Count 6.29 k/cumm (4.4-10.8)
[2019-08-20 20:02] LABS: ALT 26 U/L (14-59); AST 27 U/L (15-37); Albumin 3.9 g/dL (3.4-5.0); Alkaline Phosphatase 58 U/L (46-116); Anion Gap 8.2 mmol/L (3-11); BUN 23 mg/dL (7-18); Bilirubin, Total 0.4 mg/dL (0.2-1.0); CO2 27.8 mmol/L (21.0-32.0); Calcium 10.3 mg/dL (8.5-10.1); Chloride 105 mmol/L (98-107); Glucose 108 mg/dL (74-106); Magnesium 1.9 mg/dL (1.8-2.4); Potassium 3.9 mmol/L (3.5-5.1); Sodium 141 mmol/L (136-145); Total Protein 7.6 g/dL (6.4-8.2)
[2019-08-20 20:05] LABS: Troponin I < 0.05 ng/Ml (<0.06)
--- NOTE | 2019-08-20 20:06 | DI.VRAD_ITS ---
PROCEDURE INFORMATION: Exam: XR Chest, 2 Views Exam date and time: 08/20/2019 7:43 PM Age: 79 years old Clinical indication: Other: Hypertension; Prior surgery; Surgery date: 6+ months; Surgery type: Pace maker, 5 years ago TECHNIQUE: Imaging protocol: XR of the chest Views: 2 views. COMPARISON: CR XR CHEST 2V PA LATERAL 06/15/2019 1:41 PM FINDINGS: Tubes, catheters and devices: Dual lead left pacemaker in unchanged position. Lungs: Low lung volumes. No focal consolidation. Pleural space: Unremarkable. No pleural effusion. No pneumothorax. Heart/Mediastinum: Stable enlarged postsurgical cardiomediastinal silhouette. Vasculature: Redemonstrated aortic arch calcifications. Bones/joints: Unremarkable. IMPRESSION: No acute cardiopulmonary process. Dictated and Authenticated by: Davidson Gruber MD. Ordering:LELA Mckinney MD
--- NOTE | 2019-08-20 20:52 | DI.CT_ITS ---
EXAM: CT HEAD WO CLINICAL HISTORY: Headache, HTN TECHNIQUE: Noncontrast COMPARISON: CT HEAD WO from 02/02/2019 FINDINGS: Atrophy and mild changes of small vessel disease are again noted. No acute hemorrhage, infarct or m ass is seen. There is no evidence of skull fracture. The sinuses and mastoid air cells appear clear . IMPRESSION: No acute abnormality.
--- NOTE | 2019-08-20 21:05 | DI.VRAD_ITS ---
PROCEDURE INFORMATION: Exam: CT Head Without Contrast Exam date and time: 08/20/2019 8:50 PM Age: 79 years old Clinical indication: Pain; Headache not specified; Patient HX: Headache, HTN TECHNIQUE: Imaging protocol: Computed tomography of the head without contrast. Radiation optimization: All CT scans at this facility use at least one of these dose optimization techniques: automated exposure control; mA and/or kV adjustment per patient size (includes targeted exams where dose is matched to clinical indication); or iterative reconstruction. COMPARISON: CT HEAD WO 02/02/2019 11:39 AM FINDINGS: Brain: No hemorrhage. No acute large vascular territory infarct. No mass effect. There is diffuse cerebral atrophy present, consistent with this patient's age. White matter hypoattenuation likely reflects chronic small vessel ischemic changes. Ventricles: Normal. No ventriculomegaly. Bones/joints: Unremarkable. No acute fracture. Sinuses: Visualized sinuses are unremarkable. No fluid levels. Mastoid air cells: Visualized mastoid air cells are well aerated. Soft tissues: Unremarkable. IMPRESSION: No acute intracranial abnormality. Dictated and Authenticated by: Davidson Gruber MD. Ordering:LELA Mckinney MD
== END 2019-08-20 21:50 | disposition home or self-care (01) ==
PROVIDERS: Emergency Provider Registered Nurse Emergency; PCP Nurse Practitioner Adult Health
DX: I10 Essential (primary) hypertension (principal); R51 Headache
CPT/HCPCS: 36415; 80053; 93005; 99284; 70450; 71046; 81003; 81015; 83735; 84484; 85025; 93010; 99281

== ENCOUNTER 2019-08-21 14:32 | Outpatient (CLI) | payer MEDICARE, BC, SELFPAY ==
--- NOTE | 2019-08-21 14:40 | DI.RAD_ITS ---
EXAM: XR HAND RT COMPLETE INDICATION: HAND PAIN. COMPARISON: XR HAND LT COMPLETE from 08/21/2019 TECHNIQUE: 2D digital imaging was performed. FINDINGS: There is narrowing of the interphalangeal joints of the fingers and mild periarticular spurring, grea ter of the distal interphalangeal joints of the fingers. No significant degenerative changes are see n in the carpal region. The bones appear osteopenic. There is a question of a cortical irregularity of the distal shaft of the 5th metacarpal, which could represent a nondisplaced fracture. Clinical correlation is recommended. IMPRESSION: Degenerative changes of the interphalangeal joints of the fingers. Question of a 5th metacarpal frac ture.
--- NOTE | 2019-08-21 14:40 | DI.RAD_ITS ---
EXAM: XR HAND LT COMPLETE INDICATION: HAND PAIN. COMPARISON: No exams were available for comparison TECHNIQUE: 2D digital imaging was performed. FINDINGS: Bones appear osteopenic. There is narrowing of the interphalangeal joints of the fingers but no sign ificant periarticular spurring. No bony erosions are seen. The metacarpophalangeal joints and carpa l region are unremarkable. IMPRESSION: Mild degenerative changes of the interphalangeal joints of the fingers.
== END 2019-08-21 14:52 ==
PROVIDERS: PCP Nurse Practitioner Adult Health; Referring Provider Nurse Practitioner Adult Health; Visit Provider Student in an Organized Health Care Education/Training Program
DX: M79.642 Pain in left hand (principal); M85.88 Other specified disorders of bone density and structure, other site; M19.042 Primary osteoarthritis, left hand; M79.641 Pain in right hand; M19.041 Primary osteoarthritis, right hand; M65.342 Trigger finger, left ring finger; M65.332 Trigger finger, left middle finger
CPT/HCPCS: 99214; 73130

== ENCOUNTER 2019-11-15 10:47 | Outpatient (REF) | payer MEDICARE, BC, SELFPAY ==
[2019-11-15 20:01] LABS: BUN 26 mg/dL (7-18); CREATININE 1.08 mg/dL (0.55-1.02); Chloride 104 mmol/L (98-107); Estimated GFR 49.19 (mL/min/1.73m2); Glucose 142 mg/dL (74-106); NT-proBNP 267 pg/mL (<300); Sodium 142 mmol/L (136-145)
== END 2019-11-15 11:07 ==
LOC: LBO 10:47
PROVIDERS: PCP Nurse Practitioner Adult Health; Visit Provider Nurse Practitioner Adult Health
DX: I50.30 Unspecified diastolic (congestive) heart failure (principal); I34.0 Nonrheumatic mitral (valve) insufficiency; R60.9 Edema, unspecified; R63.5 Abnormal weight gain
CPT/HCPCS: 80048; 83880

== ENCOUNTER 2019-12-21 01:22 | Outpatient (CLI) | payer MEDICARE, BC, SELFPAY ==
--- NOTE | 2019-12-21 06:45 | DI.US_ITS ---
APPROVED REPORT EXAM: Comprehensive 2D, Doppler, and color-flow Echocardiogram Patient Location: Out-Patient Sheriff Sergeant: Leydi Elizabeth RDCS (AE) Indications: Edema, weight gain, CAD Other Information Study Quality: Adequate Conclusion Left Ventricle : The left ventricle is normal size. The left ventricular systolic function is normal. The left ventricular ejection fraction is within the normal range. Borderline concentric left ventri cular hypertrophy. There is normal LV segmental wall motion. Transmitral Doppler flow pattern suggest s impaired LV relaxation. LVEF is 47%. Right Ventricle : Right ventricle is not well visualized. The right ventricular systolic function is normal. The RVSP is 22.8 mmHg. Atria : Left atrium is mildly dilated. The right atrium size is normal. Valves: There are no hemodynamically significant valvular lesions. Great Vessels : IVC is normal in size and collapses >50% with inspiration. Echocardiogram from 06/04/2017, the patient's ejection fraction has dropped from in the normal range to mildly decreased. Aortic valve gradient has increased slightly but is still in the mild range. Wall motion Left Ventricle The left ventricle is normal size. The left ventricular systolic function is normal. The left ventric ular ejection fraction is within the normal range. Concentric left ventricular hypertrophy. There is normal LV segmental wall motion. Transmitral Doppler flow pattern suggests impaired LV relaxation. Th ere is no ventricular septal defect visualized. LVEF is 47%. Right Ventricle Right ventricle is not well visualized. The right ventricular systolic function is normal. The RVSP i s 22.8 mmHg. Pacemaker lead is present in the right ventricle. Atria Left atrium is mildly dilated. The right atrium size is normal. The interatrial septum is intact with no evidence for an atrial septal defect. Aortic Valve Aortic valve is calcified. Mild aortic stenosis. Trace to mild aortic regurgitation. Mitral Valve There is mitral annular calcification. Mitral valve leaflets are thickened. No evidence of mitral claire ve stenosis. Trace mitral regurgitation. Tricuspid Valve The tricuspid valve is normal in structure. There is no tricuspid valve stenosis. Trace to mild tricu spid regurgitation. Pulmonic Valve The pulmonary valve is normal in structure. There is no pulmonic valvular stenosis. Trace pulmonic re gurgitation. Great Vessels The aortic root is normal in size. Ascending aorta is not well visualized. Aortic arch is normal in c aliber. IVC is normal in size and collapses >50% with inspiration. Pericardium There is no pericardial effusion. 2D Dimensions IVSD d PLAX 1.24 cm F: 0.6-1.0 LV Vol A2C d MOD 39.9 mL LVPW d PLAX 1.18 cm F: 0.6 - 1.0 LV Vol A4C d MOD 80.3 mL LVID d PLAX 4.00 cm F: 3.8 - 5.2 LA vol/ BSA A2C s A-L 32.8 mL/m2 LVDs 2.65 cm F: 2.2 - 3.5 LA vol/ BSA A4C s A-L 42.0 mL/m2 Ao Root d 2.96 cm F: 2.7 - 3.3 LA Vol/ BSA Biplane s A-L 38.5 mL/m2 RA Area A4C 13.84 cm2 LA Area A4C s MOD 20.56 cm2 RA Vol/ BSA A4C s A-L 21.2 mL/m2 LA Area A2C s MOD 18.82 cm2 LV EF Teichholz 62.4 % LV EF A4C MOD 47.7 % LVEF (Proctor's) 49.47 % F: 54 - 74 LV EF A2C MOD 47.1 % LV Volume 48.07 mL F: 46 - 106 LV EF Biplane MOD 49.5 % LV Volume Index 30.04 mL/m2 F: 29 - 61 SV 29.26 mL LV Vol Biplane MOD 59.1 mL SV Index 18.30 mL/m2 FS 33.15 % LV Diastology MV E' medial 0.040 (>0.07 m/s) E/A Ratio 1.3 LV E/e MED 15.70 (<14) MV E Vmax 0.63 (0.4-1.3 m/s) MV E' lateral 0.085 (>0.1 m/s) MV A Vmax 0.50 (0.4-1.3 m/s) LV E/e LAT 7.40 (<14) MV E/A Ratio 1.17 MV E/E' medial 15.74 MV E/E' lateral 7.42 Aortic Valve LVOT Area 2.91 cm2 AoV Area Vmax 1.42 cm2 LVOT Vmax 0.92 m/s AoV Area/ BSA (Vmax) 0.89 cm2/m2 LVOT Mean Lei. 0.62 m/s PEYTON Mean Lei. 1.29 cm2 LVOT Peak Grad 3.4 mmHg PEYTON Mean Lei. Index 0.80 cm2/m2 LVOT Mean Grad 1.8 mmHg AR DT 2624 msec LVOT VTI 0.157 m AR PHT 761 msec LVOT Diam s 1.90 cm AoV Vmax 1.88 m/s Velocity Ratio 0.48 AoV Mean Lei. 1.41 m/s AoV Peak Grad 14.2 mmHg LVOT SV 45.78 mL AoV Mean Grad 8.9 mmHg AoV VTI 0.426 m AoV Area VTI 1.08 cm2 AoV Area/ BSA (VTI) 0.67 cm/m2 Mitral Valve MV DT 229 (160-240 msec) MV PHT 66 msec MV Area PHT 3.32 cm2 Pulmonary Valve PV Vmax 0.79 (0.5-1.5 m/s) RVOT Peak Gr. 1.25 mmHg PV Peak Grad 2.5 mmHg RVOT Mean Gr. 0.80 mmHg PV Mean Grad 1.8 mmHg RVOT VTI 0.129 m PV VTI 0.172 m RVOT Vmax 0.56 m/s Tricuspid Valve TR Peak Grad 19.7 mmHg TR Vmax 2.22 m/s RA Pressure 3.00 mmHg RVSP (TR) 22.8 mmHg
== END 2019-12-21 01:42 ==
PROVIDERS: PCP Nurse Practitioner Adult Health; Visit Provider Nurse Practitioner Adult Health
DX: I25.10 Atherosclerotic heart disease of native coronary artery without angina pectoris (principal); R60.0 Localized edema; I48.20 Chronic atrial fibrillation, unspecified; R63.5 Abnormal weight gain; R93.1 Abnormal findings on diagnostic imaging of heart and coronary circulation
CPT/HCPCS: 93306

== ENCOUNTER 2019-12-22 13:09 | Outpatient (CLI) | payer MEDICARE, BC, SELFPAY ==
[2019-12-22 15:38] LABS: HCT 36.8 % (36.0-46.0); HGB 12.5 g/dL (12.0-15.5); Mean Corpuscular Hemoglobin 32.6 pg (27.0-33.0); Mean Corpuscular Volume 96.1 fL (80-95); Platelet Count 134 x1000/uL (130-400); RBC 3.83 m/cumm (4.00-5.20); RBC Distribution Width 12.5 % (11.7-14.6); White Blood Cell Count 5.61 k/cumm (4.4-10.8)
[2019-12-22 17:43] LABS: ALT 44 U/L (14-59); AST 32 U/L (15-37); Alkaline Phosphatase 62 U/L (46-116); Anion Gap 9.6 mmol/L (3-11); BUN 21 mg/dL (7-18); Bilirubin, Total 0.5 mg/dL (0.2-1.0); CO2 26.4 mmol/L (21.0-32.0); CREATININE 1.05 mg/dL (0.55-1.02); Calcium 9.6 mg/dL (8.5-10.1); Chloride 103 mmol/L (98-107); Estimated GFR 50.82 (mL/min/1.73m2); Glucose 173 mg/dL (74-106); Potassium 3.8 mmol/L (3.5-5.1); Sodium 139 mmol/L (136-145); Total Protein 7.4 g/dL (6.4-8.2); Vitamin B12 1110 pg/mL (193-986)
[2019-12-22 22:56] LABS: C-Reactive Protein < 0.05 mg/dL (0.0-0.3)
[2019-12-25 13:55] LABS: Hemoglobin A1C 6.1 % (3.8-5.6)
== END 2019-12-22 13:29 ==
PROVIDERS: PCP Nurse Practitioner Adult Health; Visit Provider Nurse Practitioner Adult Health
DX: I25.10 Atherosclerotic heart disease of native coronary artery without angina pectoris (principal); R20.0 Anesthesia of skin; R20.2 Paresthesia of skin; E11.8 Type 2 diabetes mellitus with unspecified complications
CPT/HCPCS: 36415; 80053; 85027; 82607; 83036; 86140

== ENCOUNTER 2020-01-17 14:42 | Outpatient (CLI) | payer MEDICARE, BC, SELFPAY ==
--- NOTE | 2020-01-17 14:50 | DI.RAD_ITS ---
EXAM: XR HAND LT COMPLETE CLINICAL HISTORY: assess bone soft tissue structure s/p dog punct [id number] open bite lt [place]. TECHNIQUE: 2D digital imaging was performed. COMPARISON: CR XR HAND LT COMPLETE from 08/21/2019 FINDINGS: BONES: No acute fracture is present. No bony destructive lesion is seen. JOINTS: No dislocation present. SOFT TISSUE: Normal. IMPRESSION: Unremarkable radiographs of the left hand. DATA REPOSITORY: RADIATION DOSE DELIVERED:
== END 2020-01-17 15:02 ==
PROVIDERS: PCP Nurse Practitioner Adult Health; Visit Provider Nurse Practitioner Adult Health
DX: S61.452A Open bite of left hand, initial encounter (principal); W54.0XXA Bitten by dog, initial encounter
CPT/HCPCS: 73130

== ENCOUNTER → 2020-02-28 15:07 | Outpatient (BNVA) | payer MEDICARE, BC, SELFPAY | PROVIDERS: PCP Nurse Practitioner Adult Health; Referring Provider Nurse Practitioner Adult Health; Visit Provider Physician Assistant | DX: I25.10 Atherosclerotic heart disease of native coronary artery without angina pectoris (principal); I49.5 Sick sinus syndrome; Z45.018 Encounter for adjustment and management of other part of cardiac pacemaker; E11.22 Type 2 diabetes mellitus with diabetic chronic kidney disease; N18.3 Chronic kidney disease, stage 3 (moderate); I12.9 Hypertensive chronic kidney disease with stage 1 through stage 4 chronic kidney disease, or unspecified chronic kidney disease | CPT/HCPCS: 93280; 99211 ==

== ENCOUNTER 2020-03-04 13:48 | Outpatient (REF) | payer MEDICARE, BC, SELFPAY ==
[2020-03-06 17:06] LABS: Calprotectin 23.5 mcg/g
== END 2020-03-04 14:08 ==
LOC: LBN 13:48
PROVIDERS: PCP Nurse Practitioner Adult Health; Visit Provider Nurse Practitioner Adult Health
DX: R19.7 Diarrhea, unspecified (principal)
CPT/HCPCS: 83993

== ENCOUNTER 2020-04-09 10:43 | Emergency (ER) | payer MEDICARE, BC, SELFPAY ==
--- NOTE | 2020-04-09 10:46 | W.ED.GENAD ---
Discharge Plan Disposition Patient Disposition: HOME Condition: Stable Discharge Details Clinical Impression: Cat bite Primary Care Provider: Linn Paulino ED Provider: Xander Soto Home Meds and New Rx's Prescriptions: New doxycycline hyclate 100 mg capsule 100 mg PO BID 10 Days Qty: 20 RF: 0 Continued nitroglycerin [Nitrostat] 0.4 mg tablet, sublingual 0.4 mg Sublingual Q5 MIN PRN X3 PRN (Reason: chest pain) Qty: 20 RF: 1 Shingrix (PF) 50 mcg/0.5 mL suspension for reconstitution 50 mcg IM ONCE Qty: 1 RF: 1 nystatin 100,000 unit/gram cream 1 applic TP BID PRNRF: 0 lidocaine 5 % adhesive patch,medicated 1 patch TP DAILY PRNRF: 0 lorazepam 0.5 mg tablet 0.5 mg PO BID Qty: 64 RF: 2 mupirocin 2 % ointment 1 applic TP BID Qty: 15 RF: 0 carvedilol 6.25 mg tablet 6.25 mg PO BID Qty: 180 RF: 3 carvedilol 3.125 mg tablet 3.125 mg PO BID Qty: 180 RF: 3 losartan 50 mg tablet 50 mg PO BID Qty: 180 RF: 3 amlodipine 2.5 mg tablet See Rx Instructions PO DAILY Qty: 0 RF: 3 mirtazapine 15 mg tablet 15 mg PO QHS Qty: 90 RF: 3 gabapentin 300 mg capsule 300 mg PO as directed RF: 0 cyanocobalamin (vitamin B-12) 1,000 MCG tablet 1,000 mcg PO DAILY Qty: 90 RF: 3 cholecalciferol (vitamin D3) [Vitamin D3] 1,000 UNIT capsule 1,000 unit PO BID RF: 0 aspirin [Aspirin Low-Strength] 81 mg tablet,chewable 81 mg PO DAILY Qty: 90 RF: 3 clindamycin HCl 150 mg capsule 600 mg PO ONCE Qty: 4 RF: 6 Eliquis 5 mg tablet 5 mg PO BID Qty: 180 RF: 3 atorvastatin 40 mg tablet 40 mg PO DAILY Qty: 90 RF: 3 lamotrigine [Lamictal] 100 mg tablet 100 mg PO BID Qty: 180 RF: 3 (DME) lancets [FreeStyle Lancets] 28 gauge misc 1 ea Miscellaneous as directed Qty: 100 RF: 3 (DME) Blood Glucose Test Strip See Rx Instructions .ROUTE .MEDSUPPLY Qty: 100 RF: 3 acetaminophen [Tylenol] 325 MG tablet 650 mg PO Q4H PRN PRNQty: 0 RF: 0 Discharge Instructions Instructions: Animal Bite (ED) Additional Instructions: X-ray was unremarkable. Tetanus was updated. Take doxycycline as directed. Keep the area clean and dry, you may change antibiotic dressing daily. All appropriate animal bite forms were completed, animal control should be contacting you, please follow their instructions. As we discussed, if cat has no change in behavior and is healthy over the next 10 days then no additional therapy needs to be initiated. If the cat becomes unhealthy or has a change in behavior we will likely need to initiate the rabies immunoglobulin and vaccine. Please watch for new or worsening symptoms and return to the ER for any concerns. Otherwise I recommend contacting your primary care provider for outpatient reevaluation. Medical Decision Making 80-year-old female who is right-hand dominant presents for evaluation after being bitten by a feral cat yesterday which she plans to make an indoor house pet. Will obtain x-ray to rule out any bony involvement or possible foreign body. We will update her tetanus shot. Patient appears well, nontoxic, no obvious signs of infection. Given her allergies to amoxicillin, will not initiate Augmentin therapy, rather initiate doxycycline. All appropriate animal bite forms were completed. Patient does believe that the cat can be captured and observed. Discussed case with Dr. Luis, given the cat can be captured observed, will not initiate any rabies vaccine or immunoglobulin. Discussed this plan in length with patient, she has no additional questions or concerns. Wound was thoroughly cleaned X-ray right hand unremarkable. Tetanus updated. Medical Records Medical records reviewed: Yes I reviewed the patient's medical records. Imaging Data Radiologic Study: Attestation: I personally reviewed and interpreted this imaging study as follows: Imaging: X-Ray Radiologist's impression: Right hand unremarkable read by radiology HPI General Mode of arrival: ambulatory. Date/Time Provider Initiated Documentation: 04/09/20 10:46. Limitations to Documentation: no limitations. Information obtained by: patient. HPI Narrative: This is a 80-year-old female who is right-hand dominant, presenting for a cat bite that occurred yesterday. She has a significant past medical history that includes A. fib, chronic anticoagulation, CAD, diabetes, hypertension, anxiety. Patient reports that the cat is a feral cat that used to be owned by someone down the road, but that person has since committed suicide, and now the cat lives outside. The cat does come to her house every day and she feeds the cat on the deck, the cat has been coming to her house for 4 years. She actually plans on bringing the cat to the vet on Wednesday to make sure the cat is healthy and then make the cat indoor cat before the winter. Yesterday she was attempting to pet the cat and the cat bit her. She saw the cat this morning, the cat ate normally and looked at baseline. The cat is not up-to-date on his shots immunizations. The cat has not been acting irregular. She contacted her primary care provider today to check on her tetanus status and she was subsequently referred to the ER. She reports mild discomfort at the site of the bite. She denies any fever, numbness, tingling, weakness. No additional concerns or complaints. Although the cat does live outside she feels that the cat can be captured and observed Related Data Home Medications Medication Instructions Recorded Confirmed acetaminophen [Tylenol] 650 mg PO Q4H PRN PRN #0 tab 01/15/16 04/09/20 cyanocobalamin (vitamin B-12) 1,000 mcg PO DAILY #90 tab-cap 02/10/16 04/09/20 cholecalciferol (vitamin D3) 1,000 unit PO BID cap 10/05/16 04/09/20 [Vitamin D3] aspirin 81 mg chewable tablet 81 mg PO DAILY #90 tab 07/19/18 04/09/20 clindamycin HCl 150 mg capsule 600 mg PO ONCE #4 cap 08/25/18 04/09/20 nitroglycerin 0.4 mg sublingual 0.4 mg SUBLINGUAL Q5 MIN PRN X3 03/03/19 04/09/20 tablet PRN #20 tab varicella-zoster glycoE [id number] 50 mcg IM ONCE #1 each 03/31/19 04/09/20 adj(PF) 50 mcg/0.5 mL IM susp, kit lidocaine 5 % topical patch 1 patch TP DAILY PRN each 07/26/19 04/09/20 nystatin 100,000 unit/gram topical 1 applic TP BID PRN gm 07/26/19 04/09/20 cream apixaban 5 mg tablet 5 mg PO BID #180 tab 08/01/19 04/09/20 atorvastatin 40 mg tablet 40 mg PO DAILY #90 tab 08/01/19 04/09/20 lamotrigine 100 mg tablet 100 mg PO BID #180 tab-cap 08/01/19 04/09/20 carvedilol 3.125 mg tablet 3.125 mg PO BID #180 tab 08/26/19 04/09/20 carvedilol 6.25 mg tablet 6.25 mg PO BID #180 tab 08/26/19 04/09/20 losartan 50 mg tablet 50 mg PO BID #180 tab 08/26/19 04/09/20 amlodipine 2.5 mg tablet See Rx Instructions PO DAILY #0 tab 11/15/19 04/09/20 mirtazapine 15 mg tablet 15 mg PO QHS #90 tab 12/27/19 04/09/20 lorazepam 0.5 mg tablet 0.5 mg PO BID #64 tab 01/17/20 04/09/20 gabapentin 300 mg capsule 300 mg PO as directed cap 02/12/20 04/09/20 mupirocin 2 % topical ointment 1 applic TP BID #15 gm 03/11/20 04/09/20 blood sugar diagnostic #100 each 03/20/20 lancets 28 gauge #100 each 03/20/20 04/09/20 doxycycline hyclate 100 mg PO BID 10 Days #20 cap 04/09/20 Previous Rx's Medication Instructions Recorded acetaminophen [Tylenol] 650 mg PO Q4H PRN PRN #0 tab 01/15/16 aspirin 81 mg chewable tablet 81 mg PO DAILY #90 tab 07/19/18 clindamycin HCl 150 mg capsule 600 mg PO ONCE #4 cap 08/25/18 nitroglycerin 0.4 mg sublingual 0.4 mg SUBLINGUAL Q5 MIN PRN X3 03/03/19 tablet PRN #20 tab varicella-zoster glycoE [id number] 50 mcg IM ONCE #1 each 03/31/19 adj(PF) 50 mcg/0.5 mL IM susp, kit apixaban 5 mg tablet 5 mg PO BID #180 tab 08/01/19 atorvastatin 40 mg tablet 40 mg PO DAILY #90 tab 08/01/19 lamotrigine 100 mg tablet 100 mg PO BID #180 tab-cap 08/01/19 carvedilol 3.125 mg tablet 3.125 mg PO BID #180 tab 08/26/19 carvedilol 6.25 mg tablet 6.25 mg PO BID #180 tab 08/26/19 losartan 50 mg tablet 50 mg PO BID #180 tab 08/26/19 amlodipine 2.5 mg tablet See Rx Instructions PO DAILY #0 tab 11/15/19 mirtazapine 15 mg tablet 15 mg PO QHS #90 tab 12/27/19 lorazepam 0.5 mg tablet 0.5 mg PO BID #64 tab 01/17/20 mupirocin 2 % topical ointment 1 applic TP BID #15 gm 03/11/20 blood sugar diagnostic #100 each 03/20/20 lancets 28 gauge #100 each 03/20/20 doxycycline hyclate 100 mg PO BID 10 Days #20 cap 04/09/20 Allergies Allergy/AdvReac Type Severity Reaction Status Date / Time nifedipine Allergy Mild Hives Verified 02/12/20 12:05 amiodarone AdvReac Severe tremor Verified 02/12/20 12:05 oxycodone AdvReac Severe heavy Verified 02/12/20 12:05 sedation amoxicillin AdvReac Intermediate sore Verified 02/12/20 12:05 burning mouth Anesthetics - Amide Type AdvReac Intermediate anxious Verified 02/12/20 12:05 diazepam AdvReac Intermediate Agitation Verified 02/12/20 12:05 indomethacin AdvReac Intermediate headache, Verified 02/12/20 12:05 flush metformin AdvReac Intermediate Diarrhea Verified 02/12/20 12:05 General ANASTACIA: 3 Review of Systems Constitutional Constitutional: Denies fever(s) and Denies weakness Musculoskeletal Musculoskeletal: Denies arthralgias, Denies numbness and Denies tingling Integumentary/Breasts Skin/Breast: Denies rash Neurologic Neurologic: Denies numbness, Denies tingling and Denies weakness Hematologic/Lymphatic Hematologic/Lymphatic: Reports easy bleeding and Reports easy bruising [facility] Medical History Abnormal echocardiogram 05/28/2018 ([facility]): 1+/4+ mitral regurg; EF 56% ASCVD (arteriosclerotic cardiovascular disease) cardiac cath Atrial fibrillation s/p ablation 02/2016 Chest pain Chronic atrial fibrillation (11/19/15) s/p Ablation 02/2016 Chronic kidney disease, stage III (moderate) (08/17/11) Chronic nonalcoholic liver disease (08/17/11) Chronic pain Back; L-T Tramadol RX Coronary artery disease a. inferior KS 1984 b. KS with CABG 1992 Patient is doing well with no chest pain. Continue on current medications. Depression a. h/o ECT treatment x1 (per Liliana very effective) b. formerly followed by Chauncey Gracia NP c. On multiple medications d. h/o psychiatric hospitalizations for reported bipolar e. h/o suicide attempts Diabetic neuropathy (03/07/15) Dr Itzel Nice [facility] GI 2019 DM type 2, controlled, with complication complications: neuropathy, cardiovascular disease Essential hypertension (08/17/11) Essential tremor (04/02/08) R > L, EVAL PRICE 2008; [place] [id number]; responds to low dose propranolol Fracture of rib of right side (08/26/15) Fracture of right shoulder (08/26/15) Frequent falls (04/05/17) Generalized anxiety disorder Generalized atherosclerosis (08/17/11) H/O CABG 1993; Cath 11/2015: all three grafts open; EF 60%; JUANPABLO 02/2015 EF 55% GERD (gastroesophageal reflux disease) Gouty arthropathy, unspecified (08/17/11) Hyperlipidemia (08/17/11) Crestor switched to Atorvastatin per ins Hypertension Patient's blood pressure is stable. Continue on current meds. Mid back pain New onset mid back pain without any obvious provocation. There appears to be an abnormal curve of her thoracic spine with dextroscoliosis. This was not noted previously although it may have been overlooked. We shall check for anything acute such as a thoracic compression fracture. If the x-ray shows this, we shall refer her to orthopedics. In the meantime, she had a previous med use agreement with tramadol. Due to her kidney function we did not want to use excess of NSAIDs so it is reasonable to renew this medication temporarily. Cautioned that this may cause excessive drowsiness point combined with lorazepam. If there are no acutely concerning findings on the x-ray, and the pain fails to resolve by its own we can readdress at her next appointment. 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 declined ablation at [facility] Patient's dual-chamber pacemaker is functioning normally with ample generator life remaining. She has had no further PAF episodes noted. Her presenting rhythm is atrial pacing and underlying rhythm is sinus bradycardia. No reprogramming needed. She does not use remote monitoring. Trigger finger, right ring finger Unexplained weight loss Surgical History Ablation for A Fib (03/10/16) Catheter ablatioin for A Flutter and catheter ablatiion for A Fib; [facility] Dr David King cardiac catheterization (11/27/14) 3 vessel disease, occluded, Grafts: mammary artery and 2 venous grafts are all open. cardioversion (07/20/14) Dr Garcia, [facility] Extraction of cataract (11/11/15) L cataract Jayme R cataract-Dr Hutson History of hysterectomy Pacemaker (09/05/15) [facility], [employer] DUAL CHAMBER Replacement of total knee joint (09/14/11) CELESTE LEFT TKA Trigger Finger release R 4th digit Family History Mother , perf ulcer at age 78. Hip fracture mother from complications of hip fracture Father , stroke at age 80. No problems noted. Sister No problems noted. Social History Smoking/Tobacco Use Status: Never Second Hand Exposure: No Alcohol Intake: never Drug use: Never Substance use type: does not use Adopted: No (raised by Aunt and Uncle) Caregiver/Support person: Yes (youngest daughter: Jacquelyn Chavira is healthcare agent ph:[phone]) Foster care: No Household members: spouse Housing: house Number of Children: 4 Current gender identity: female What is your relationship status?: Panel score (0-1 are the most socially isolated patients): 1 What type of physical activity do you participate in: none Shasta/Mormon: Rastafarian Seatbelt use: always Drive intox or ride w/intox sales route driver helper: No Water heater temp set <120 deg: Yes Working smoke detector in home: Yes Fire extinguisher in home: Yes Carbon monox detector in home: Yes Firearms in home: Yes Do you feel safe at home: Yes Do you feel safe in your relationship?: Yes Additional Social history: Salma Wang. History History 5 Para Hx # Term Pregnancies 4 Multiple births Hx # Pregnancies Ectopic pregnancies AB induced Hx Number of Living Children AB spontaneous Exam Const General: cooperative, healthy appearing, comfortable and no acute distress Orientation: alert, awake and oriented x3 HENMT Head: normal to inspection, normocephalic and atraumatic Mouth: moist mucous membranes Eyes Conjunctivae: conjunctivae normal Neck Neck: normal visual inspection, trachea midline and supple Resp Effort & Inspection: normal respiratory effort and able to speak in complete sentences Cardio Rate: regular rate Rhythm: regular rhythm Skin General skin exam: no rashes or lesions noted Neuro General: patient alert, patient awake, moves all extremities and no focal motor deficits Sensory Exam: no sensory deficits noted Extrem General: full ROM and capillary refill normal Right upper extremity: normal capillary refill Left upper extremity: normal to inspection, full ROM and normal capillary refill Hand/finger images: 1. 2 puncture wounds. No obvious foreign body, erythema, warmth, drainage. Neuro, vascular, tendon intact. Full range of motion. Normal capillary refill Psych Appearance: grossly normal Mental Status: mental status grossly normal
[2020-04-09 10:47] VITALS: BP 164/74; PULSE 93; RESP 16; TEMP 36.4; O2SAT 96
--- NOTE | 2020-04-09 11:05 | NUR.NOTE ---
Nursing Note: Animal Bite Report form faxed to [facility] clerk. Message left on health officer phone, Maria Elena Jaquez to call for the information and that the form was faxed to clerk. Julissa Oconnor [facility] fax [phone]
--- NOTE | 2020-04-09 11:43 | DI.RAD_ITS ---
EXAM: XR HAND RT COMPLETE CLINICAL HISTORY: Cat bite base of thumb. TECHNIQUE: 2D digital imaging was performed. COMPARISON: No exams were available for comparison FINDINGS: BONES: No acute fracture is present. No bony destructive lesion is seen. JOINTS: No dislocation present. SOFT TISSUE: Normal. No foreign body or gas collection. Degenerative changes of the interphalangeal joints. IMPRESSION: Unremarkable radiographs of the right hand. DATA REPOSITORY: RADIATION DOSE DELIVERED:
[2020-04-09 11:58] VITALS: BP 123/84; PULSE 65; RESP 16; O2SAT 97
== END 2020-04-09 12:20 | disposition home or self-care (01) ==
PROVIDERS: Emergency Provider Physician Assistant; PCP Nurse Practitioner Adult Health
DX: S61.451A Open bite of right hand, initial encounter (principal); W55.01XA Bitten by cat, initial encounter; I25.10 Atherosclerotic heart disease of native coronary artery without angina pectoris; E11.9 Type 2 diabetes mellitus without complications; I12.9 Hypertensive chronic kidney disease with stage 1 through stage 4 chronic kidney disease, or unspecified chronic kidney disease; N18.3 Chronic kidney disease, stage 3 (moderate); Z79.01 Long term (current) use of anticoagulants; I48.91 Unspecified atrial fibrillation
CPT/HCPCS: 90471; 99284; 73130; 99283

== ENCOUNTER → 2020-06-27 11:30 | Outpatient (BNVA) | payer MEDICARE, BC, SELFPAY | PROVIDERS: PCP Nurse Practitioner Adult Health; Referring Provider Nurse Practitioner Adult Health; Visit Provider Student in an Organized Health Care Education/Training Program | DX: M65.342 Trigger finger, left ring finger (principal); M65.332 Trigger finger, left middle finger | CPT/HCPCS: 99213 ==

== ENCOUNTER 2020-06-29 15:26 | Emergency (ER) | payer MEDICARE, BC, SELFPAY ==
--- NOTE | 2020-06-29 15:30 | DI.RAD_ITS ---
EXAM: XR SHOULDER LT COMPLETE 2+V CLINICAL HISTORY: Shoulder pain. TECHNIQUE: 2D digital imaging was performed. COMPARISON: CR XR shoulder RT complete 2+V from 11/21/2018 FINDINGS: There is no evidence of fracture or dislocation. No abnormal soft tissue calcification nor diminutio n of the subacromial space. Acromioclavicular joint appears unremarkable. There are multiple degene rative sub articular cysts evident in the humeral head. Bipolar left subclavian pacemaker incidentally noted. Also calcification the carotid artery on the l eft side of the neck indicating atherosclerotic involvement. IMPRESSION: Degenerative cysts noted in the humeral head. Other incidental findings as above. DATA REPOSITORY: RADIATION DOSE DELIVERED:
[2020-06-29 15:37] VITALS: BP 118/65; PULSE 66; RESP 14; TEMP 36.5; O2SAT 98
--- NOTE | 2020-06-29 15:43 | ED.GENADUL_ITS ---
Discharge Plan Disposition Patient Disposition: HOME Condition: Stable Discharge Details Clinical Impression: Sprain of left shoulder Primary Care Provider: Linn Paulino ED Provider: Faye Cross Home Meds and New Rx's Prescriptions: New cyclobenzaprine 10 mg tablet 10 mg PO TID PRN (Reason: muscle spasm) Qty: 10 RF: 0 Continued nystatin 100,000 unit/gram cream 1 applic TP BID PRNRF: 0 lidocaine 5 % adhesive patch,medicated 1 patch TP DAILY PRNRF: 0 mupirocin 2 % ointment 1 applic TP BID Qty: 15 RF: 0 nitroglycerin [Nitrostat] 0.4 mg tablet, sublingual 0.4 mg Sublingual Q5 MIN PRN X3 PRN (Reason: chest pain) Qty: 20 RF: 1 mirtazapine 7.5 mg tablet 7.5 mg PO QHS Qty: 90 RF: 3 trazodone 50 mg tablet 50 mg PO QHS PRN (Reason: sleep) Qty: 30 RF: 1 lorazepam 0.5 mg tablet 0.5 mg PO BID MDD 2, 0.5mg tabs Qty: 56 RF: 2 carvedilol 6.25 mg tablet 6.25 mg PO BID Qty: 180 RF: 3 losartan 50 mg tablet 50 mg PO BID Qty: 180 RF: 3 amlodipine 2.5 mg tablet See Rx Instructions PO DAILY Qty: 0 RF: 3 gabapentin 300 mg capsule 300 mg PO as directed RF: 0 cyanocobalamin (vitamin B-12) 1,000 MCG tablet 1,000 mcg PO DAILY Qty: 90 RF: 3 cholecalciferol (vitamin D3) [Vitamin D3] 1,000 UNIT capsule 1,000 unit PO BID RF: 0 aspirin [Aspirin Low-Strength] 81 mg tablet,chewable 81 mg PO DAILY Qty: 90 RF: 3 clindamycin HCl 150 mg capsule 600 mg PO ONCE Qty: 4 RF: 6 Eliquis 5 mg tablet 5 mg PO BID Qty: 180 RF: 3 atorvastatin 40 mg tablet 40 mg PO DAILY Qty: 90 RF: 3 lamotrigine [Lamictal] 100 mg tablet 100 mg PO BID Qty: 180 RF: 3 (DME) lancets [FreeStyle Lancets] 28 gauge misc 1 ea Miscellaneous as directed Qty: 100 RF: 3 (DME) Blood Glucose Test Strip See Rx Instructions .ROUTE .MEDSUPPLY Qty: 100 RF: 3 carvedilol 3.125 mg tablet 3.125 mg PO BID Qty: 180 RF: 3 acetaminophen [Tylenol] 325 MG tablet 650 mg PO Q4H PRN PRNQty: 0 RF: 0 Discharge Instructions Instructions: Shoulder Sprain (ED) Additional Instructions: Take medications as directed. Continue using lidocaine patches and Tylenol if needed. Alternate ice and heat. Try massage. Wear sling for comfort. Follow up with primary care provider in 3-5 days. Return to ED sooner if any worsening or concerns. Increase oral fluids. Referrals: Linn Paulino NP [Primary Care Provider] - Discharge Data Discharge Date/Time-TO BE ENTERED AT DEPARTURE: 06/29/20 16:35 Medical Decision Making <Faye Cross - Last Filed: 06/30/20 08:07> 80-year-old female presents to the ED chief complaint of left shoulder pain. She states that she was doing some heavy lifting with her left arm and was pulling down a garage door today. She began with posterior shoulder pain and spasm soon thereafter. She took a Tylenol prior to arrival and a tramadol and a pplied a lidocaine patch which helped somewhat. She denies any falls or trauma, denies any chest pain or shortness of breath. She denies having surgery on that shoulder in the past. She does have a past medical history of chronic kidney disease, GERD, hyperlipidemia, hypertension, coronary artery disease, type 2 diabetes, and atrial fibrillation. She rates her pain a 6 out of 10 upon initial presentation. X-ray of shoulder ordered, Flexeril PO given and sling for support and position of comfort. <Guillermina Vela NP - Last Filed: 06/29/20 16:24> Medical Records Medical records reviewed: Yes I reviewed the patient's medical records. Medical records narrative: Patient Name: LILIANA BARRON #: [id number]: ER Ordering Provider: : REG ER Primary Care Provider: Linn Paulino NPDate of Exam: 06/29/20ex: F : 2Age: 80 Exam(s) PROCEDURE INFORMATION: Exam: XR Left Shoulder Exam date and time: 06/29/2020 4:10 PM Age: 80 years old Clinical indication: Upper arm; Left; Patient HX: Shoulder pain TECHNIQUE: Imaging protocol: XR Left shoulder. Views: 2 or more views. COMPARISON: No relevant prior studies available. FINDINGS: Tubes, catheters and devices: left pacemaker. Bones/joints: sternotomy. osteopenia. No acute fracture or dislocation. Heterogeneous appearance of the humeral head. Consider MRI. Vasculature: Atherosclerosis. Soft tissues: Normal. IMPRESSION: 1. No acute fracture or dislocation. 2. Heterogeneous appearance of the humeral head. Consider MRI. Dictated and Authenticated by: Gurinder Duffy MD. Ordering:LELA Mckinney MD HPI <Faye Cross - Last Filed: 06/30/20 08:07> General Mode of arrival: wheelchair . Date/Time Provider Initiated Documentation: 06/29/20 15:27 . Limitations to Documentation: no limitations . Information obtained by: patient . HPI Narrative: 80-year-old female presents to the ED chief complaint of left shoulder pain. She states that she was doing some heavy lifting with her left arm and was pulling down a garage door today. She began with posterior shoulder pain and spasm soon thereafter. She took a Tylenol prior to arrival and a tramadol and applied a lidocaine patch which helped somewhat. She denies any falls or trauma, denies any chest pain or shortness of breath. She denies having surgery on that shoulder in the past. She does have a past medical history of chronic kidney disease, GERD, hyperlipidemia, hypertension, coronary artery disease, type 2 diabetes, and atrial fibrillation. She rates her pain a 6 out of 10 upon initial presentation. Related Data Home Medications Medication Instructions Recorded Confirmed acetaminophen [Tylenol] 650 mg PO Q4H PRN PRN #0 tab 01/15/16 06/27/20 cyanocobalamin (vitamin B-12) 1,000 mcg PO DAILY #90 tab-cap 02/10/16 06/27/20 cholecalciferol (vitamin D3) 1,000 unit PO BID cap 10/05/16 06/27/20 [Vitamin D3] aspirin 81 mg chewable tablet 81 mg PO DAILY #90 tab 07/19/18 06/27/20 clindamycin HCl 150 mg capsule 600 mg PO ONCE #4 cap 08/25/18 06/27/20 lidocaine 5 % topical patch 1 patch TP DAILY PRN each 07/26/19 06/27/20 nystatin 100,000 unit/gram topical 1 applic TP BID PRN gm 07/26/19 06/27/20 cream apixaban 5 mg tablet 5 mg PO BID #180 tab 08/01/19 06/27/20 atorvastatin 40 mg tablet 40 mg PO DAILY #90 tab 08/01/19 06/27/20 lamotrigine 100 mg tablet 100 mg PO BID #180 tab-cap 08/01/19 06/27/20 carvedilol 6.25 mg tablet 6.25 mg PO BID #180 tab 08/26/19 06/27/20 losartan 50 mg tablet 50 mg PO BID #180 tab 08/26/19 06/27/20 amlodipine 2.5 mg tablet See Rx Instructions PO DAILY #0 tab 11/15/19 06/27/20 gabapentin 300 mg capsule 300 mg PO as directed cap 02/12/20 06/27/20 mupirocin 2 % topical ointment 1 applic TP BID #15 gm 03/11/20 06/27/20 blood sugar diagnostic #100 each 03/20/20 06/27/20 lancets 28 gauge #100 each 03/20/20 06/27/20 nitroglycerin 0.4 mg sublingual 0.4 mg SUBLINGUAL Q5 MIN PRN X3 04/22/20 06/27/20 tablet PRN #20 tab lorazepam 0.5 mg tablet 0.5 mg PO BID #56 tab MDD 2, 0.5mg 05/20/20 06/27/20 tabs mirtazapine 7.5 mg tablet 7.5 mg PO QHS #90 tab 05/20/20 06/27/20 trazodone 50 mg tablet 50 mg PO QHS PRN #30 tab 05/20/20 06/27/20 carvedilol 3.125 mg tablet 3.125 mg PO BID #180 tab 06/28/20 cyclobenzaprine 10 mg PO TID PRN #10 tab 06/29/20 Previous Rx's Medication Instructions Recorded acetaminophen [Tylenol] 650 mg PO Q4H PRN PRN #0 tab 01/15/16 aspirin 81 mg chewable tablet 81 mg PO DAILY #90 tab 07/19/18 clindamycin HCl 150 mg capsule 600 mg PO ONCE #4 cap 08/25/18 apixaban 5 mg tablet 5 mg PO BID #180 tab 08/01/19 atorvastatin 40 mg tablet 40 mg PO DAILY #90 tab 08/01/19 lamotrigine 100 mg tablet 100 mg PO BID #180 tab-cap 08/01/19 carvedilol 6.25 mg tablet 6.25 mg PO BID #180 tab 08/26/19 losartan 50 mg tablet 50 mg PO BID #180 tab 08/26/19 amlodipine 2.5 mg tablet See Rx Instructions PO DAILY #0 tab 11/15/19 mupirocin 2 % topical ointment 1 applic TP BID #15 gm 03/11/20 blood sugar diagnostic #100 each 03/20/20 lancets 28 gauge #100 each 03/20/20 nitroglycerin 0.4 mg sublingual 0.4 mg SUBLINGUAL Q5 MIN PRN X3 04/22/20 tablet PRN #20 tab lorazepam 0.5 mg tablet 0.5 mg PO BID #56 tab MDD 2, 0.5mg 05/20/20 tabs mirtazapine 7.5 mg tablet 7.5 mg PO QHS #90 tab 05/20/20 trazodone 50 mg tablet 50 mg PO QHS PRN #30 tab 05/20/20 carvedilol 3.125 mg tablet 3.125 mg PO BID #180 tab 06/28/20 cyclobenzaprine 10 mg PO TID PRN #10 tab 06/29/20 Allergies Allergy/AdvReac Type Severity Reaction Status Date / Time nifedipine Allergy Mild Hives Verified 06/27/20 11:37 amiodarone AdvReac Severe tremor Verified 06/27/20 11:37 oxycodone AdvReac Severe heavy Verified 06/27/20 11:37 sedation amoxicillin AdvReac Intermediate sore Verified 06/27/20 11:37 burning mouth Anesthetics - Amide Type - AdvReac Intermediate anxious Verified 06/27/20 11:37 Select A [Anesthetics - Amide Type] diazepam AdvReac Intermediate Agitation Verified 06/27/20 11:37 indomethacin AdvReac Intermediate headache, Verified 06/27/20 11:37 flush metformin AdvReac Intermediate Diarrhea Verified 06/27/20 11:37 General Stated Complaint: Orthopedic ANASTACIA: 3 Review of Systems <Faye Cross - Last Filed: 06/30/20 08:07> Narrative: Constitutional: Negative for weight loss, alert and oriented, well groomed, normal body habitus, appears comfortable. HEENT: Denies trauma, headaches, blurry vision, nasal discharge, sore throat, trouble swallowing. Chest: Denies chest pain, palpitations, irregular rhythm, hypertension. Respiratory: Denies Shortness of breath, cough, hemoptysis. GI: Denies abdominal pain, nausea, vomiting, diarrhea, constipation. : Denies dysuria, hematuria, flank pain, rectal bleeding. Musculoskeletal: Complaining of left shoulder pain and spasm. Neuro: Denies dizziness, blurry vision, weakness, syncope, headache or facial numbness. Hematologic: Denies easy bruising, intolerance to heat or cold, hair loss. [facility] <Faye Cross - Last Filed: 06/30/20 08:07> Medical History Abnormal echocardiogram 05/28/2018 ([facility]): 1+/4+ mitral regurg; EF 56% ASCVD (arteriosclerotic cardiovascular disease) cardiac cath Atrial fibrillation s/p ablation 02/2016 Chest pain Chronic atrial fibrillation (11/19/15) s/p Ablation 02/2016 Chronic kidney disease, stage III (moderate) (08/17/11) Chronic nonalcoholic liver disease (08/17/11) Chronic pain Back; L-T Tramadol RX Coronary artery disease a. inferior NM 1984 b. NM with CABG 1992 Patient is doing well with no chest pain. Continue on current medications. Depression a. h/o ECT treatment x1 (per Liliana very effective) b. formerly followed by Chauncey Gracia NP c. On multiple medications d. h/o psychiatric hospitalizations for reported bipolar e. h/o suicide attempts Diabetic neuropathy (03/07/15) Dr Robbins Diarrhea [facility] GI 2019 DM type 2, controlled, with complication complications: neuropathy, cardiovascular disease Essential hypertension (08/17/11) Essential tremor (04/02/08) R > L, YENNY THRASHER 2008; REMI [id number]; responds to low dose propranolol Fracture of rib of right side (08/26/15) Fracture of right shoulder (08/26/15) Frequent falls (04/05/17) Generalized anxiety disorder Generalized atherosclerosis (08/17/11) H/O CABG 1993; Cath 11/2015: all three grafts open; EF 60%; JUANPABLO 02/2015 EF 55% GERD (gastroesophageal reflux disease) Gouty arthropathy, unspecified (08/17/11) Hyperlipidemia (08/17/11) Crestor switched to Atorvastatin per ins Hypertension Patient's blood pressure is stable. Continue on current meds. Mid back pain New onset mid back pain without any obvious provocation. There appears to be an abnormal curve of her thoracic spine with dextroscoliosis. This was not noted previously although it may have been overlooked. We shall check for anything acute such as a thoracic compression fracture. If the x-ray shows this, we shall refer her to orthopedics. In the meantime, she had a previous med use agreement with tramadol. Due to her kidney function we did not want to use excess of NSAIDs so it is reasonable to renew this medication temporarily. Cautioned that this may cause excessive drowsiness point combined with lorazepam. If there are no acutely concerning findings on the x-ray, and the pain fails to resolve by its own we can readdress at her next appointment. 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 declined ablation at [facility] Patient's dual-chamber pacemaker is functioning normally with ample generator life remaining. She has had no further PAF episodes noted. Her presenting rhythm is atrial pacing and underlying rhythm is sinus bradycardia. No reprogramming needed. She does not use remote monitoring. Trigger finger, right ring finger Unexplained weight loss Surgical History Ablation for A Fib (03/10/16) Catheter ablatioin for A Flutter and catheter ablatiion for A Fib; [facility] Dr David King cardiac catheterization (11/27/14) 3 vessel disease, occluded, Grafts: mammary artery and 2 venous grafts are all open. cardioversion (07/20/14) Dr Garcia, [facility] Extraction of cataract (11/11/15) L cataract Jayme R cataract-Dr Hutson History of hysterectomy Pacemaker (09/05/15) [facility], [employer] DUAL CHAMBER Replacement of total knee joint (09/14/11) CELESTE LEFT TKA Trigger Finger release R 4th digit Family History Mother , perf ulcer at age 78. Hip fracture mother from complications of hip fracture Father , stroke at age 80. No problems noted. Sister No problems noted. Social History Smoking/Tobacco Use Status: Never Second Hand Exposure: No Smoking risk assessment performed?: Yes Alcohol Intake: never Drug use: Never Substance use type: does not use Adopted: No (raised by Aunt and Uncle) Caregiver/Support person: Yes (youngest daughter: Jacquelyn Chavira is healthcare agent [phone]) Foster care: No Household members: spouse Housing: house Number of Children: 4 Current gender identity: female What is your relationship status?: Panel score (0-1 are the most socially isolated patients): 1 What type of physical activity do you participate in: none Shasta/Judaism: Orthodoxy Seatbelt use: always Drive intox or ride w/intox courier 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 History History 5 Para Hx # Term Pregnancies 4 Multiple births Hx # Pregnancies Ectopic pregnancies AB induced Hx Number of Living Children AB spontaneous Exam <Faye Cross - Last Filed: 06/30/20 08:07> Narrative Exam Narrative: Constitutional: Alert and oriented x3. Appears stated age. Normal body habitus. Head: Normocephalic, no trauma. Eyes: Pupils PERRLA, Red reflex noted, EOM's intact. Eyelids symmetrical without lesions, discharge, or swelling. ENT: Bilateral TM's WNL, External ear normal to inspection, no mastoid TTP, s welling, or erythema, Nasal turbinates WNL, no nasal discharge. Normal dentition, Posterior pharynx WNL, no exudate. Chest: RRR, Normal S1, S2, distal pulses intact. Resp: Lungs clear to auscultation bilaterally, no wheezes, rales, or rhonchi. Musculoskeletal: Normal gait, 5/5 strength to all four extremities. Does have tenderness with palpation to the posterior shoulder. No tenderness to humerus or forearm with palpation. No obvious deformity. She does have a lidocaine patch in place upon initial exam. Skin: No suspicious rashes or lesions. Capillary refill less than 2 sec. Neurologic: Cranial nerves II-XII intact. Alert and oriented x 3. DTR's intact. Hematologic/Lymphatic: No ecchymosis, no lymphadenopathy. Course <Faye Cross - Last Filed: 06/30/20 08:07> Vital Signs Vital signs: Vital Signs Temperature 36.5 C 06/29/20 15:37 Pulse 66 06/29/20 15:37 Respiratory Rate 14 06/29/20 15:37 Blood Pressure 118/65 06/29/20 15:37 Pulse Oximetry 98 06/29/20 15:37 Temperature 36.5 C 06/29/20 15:37 Temperature Source Skin 06/29/20 15:37 Pulse 66 06/29/20 15:37 Respiratory Rate 14 06/29/20 15:37 Respiratory Effort Non-Labored 06/29/20 15:42 Blood Pressure 118/65 06/29/20 15:37 Blood Pressure Position Sitting 06/29/20 15:37 Pulse Oximetry 98 06/29/20 15:37 Oxygen Delivery Method Room Air 06/29/20 15:37 Oxygen Flow Rate 0 06/29/20 15:37 Pain Level 6 06/29/20 15:37
[2020-06-29] MEDS: Cyclobenzaprine 10 MG TAB PO (15:48)
--- NOTE | 2020-06-29 16:20 | DI.VRAD_ITS ---
PROCEDURE INFORMATION: Exam: XR Left Shoulder Exam date and time: 06/29/2020 4:10 PM Age: 80 years old Clinical indication: Upper arm; Left; Patient HX: Shoulder pain TECHNIQUE: Imaging protocol: XR Left shoulder. Views: 2 or more views. COMPARISON: No relevant prior studies available. FINDINGS: Tubes, catheters and devices: left pacemaker. Bones/joints: sternotomy. osteopenia. No acute fracture or dislocation. Heterogeneous appearance of the humeral head. Consider MRI. Vasculature: Atherosclerosis. Soft tissues: Normal. IMPRESSION: 1. No acute fracture or dislocation. 2. Heterogeneous appearance of the humeral head. Consider MRI. Dictated and Authenticated by: Gurinder Duffy MD. Ordering:LELA Mckinney MD
== END 2020-06-29 16:35 | disposition home or self-care (01) ==
PROVIDERS: Emergency Provider Registered Nurse Emergency; PCP Nurse Practitioner Adult Health
DX: S43.492A Other sprain of left shoulder joint, initial encounter (principal); X50.0XXA Overexertion from strenuous movement or load, initial encounter; I12.9 Hypertensive chronic kidney disease with stage 1 through stage 4 chronic kidney disease, or unspecified chronic kidney disease; N18.30 Chronic kidney disease, stage 3 unspecified; E11.22 Type 2 diabetes mellitus with diabetic chronic kidney disease
CPT/HCPCS: 99283; 73030; 99284

== ENCOUNTER 2020-07-09 08:56 | Day surgery (SDC) | payer MEDICARE, BC, SELFPAY ==
--- NOTE | 2020-07-09 07:34 | PDOC.DSDIS_ITS ---
Discharge Plan Disposition Patient Disposition: HOME Condition: Good Discharge Details Reason For Visit: LMF and LRF Trigger Fingers Attending Provider: Rian Archer Primary Care Provider: Linn Paulino Home Meds and New Rx's Prescriptions: No Action lidocaine 5 % adhesive patch,medicated 1 patch TP DAILY PRNRF: 0 nitroglycerin [Nitrostat] 0.4 mg tablet, sublingual 0.4 mg Sublingual Q5 MIN PRN X3 PRN (Reason: chest pain) Qty: 20 RF: 1 mirtazapine 7.5 mg tablet 7.5 mg PO QHS Qty: 90 RF: 3 trazodone 50 mg tablet 50 mg PO QHS PRN (Reason: sleep) Qty: 30 RF: 1 lorazepam 0.5 mg tablet 0.5 mg PO BID MDD 2, 0.5mg tabs Qty: 56 RF: 2 citalopram 10 mg tablet 10 mg PO DAILY Qty: 30 RF: 1 carvedilol 6.25 mg tablet 6.25 mg PO BID Qty: 180 RF: 3 losartan 50 mg tablet 50 mg PO BID Qty: 180 RF: 3 amlodipine 2.5 mg tablet See Rx Instructions PO DAILY Qty: 0 RF: 3 gabapentin 300 mg capsule 300 mg PO as directed RF: 0 cyanocobalamin (vitamin B-12) 1,000 MCG tablet 1,000 mcg PO DAILY Qty: 90 RF: 3 cholecalciferol (vitamin D3) [Vitamin D3] 1,000 UNIT capsule 1,000 unit PO BID RF: 0 aspirin [Aspirin Low-Strength] 81 mg tablet,chewable 81 mg PO DAILY Qty: 90 RF: 3 clindamycin HCl 150 mg capsule 600 mg PO ONCE Qty: 4 RF: 6 Eliquis 5 mg tablet 5 mg PO BID Qty: 180 RF: 3 atorvastatin 40 mg tablet 40 mg PO DAILY Qty: 90 RF: 3 lamotrigine [Lamictal] 100 mg tablet 100 mg PO BID Qty: 180 RF: 3 (DME) lancets [FreeStyle Lancets] 28 gauge misc 1 ea Miscellaneous as directed Qty: 100 RF: 3 (DME) Blood Glucose Test Strip See Rx Instructions .ROUTE .MEDSUPPLY Qty: 100 RF: 3 carvedilol 3.125 mg tablet 3.125 mg PO BID Qty: 180 RF: 3 acetaminophen [Tylenol] 325 MG tablet 650 mg PO Q4H PRN PRNQty: 0 RF: 0 Discharge Instructions Additional Instructions: You may take Acetaminophen 650mg every 6 hours as needed for pain as well as Ibuprofen 600mg every 8 hours as needed for pain. Stand Alone Forms: Gianni Newell Finger Release Referrals: Rian Archer MD [ [facility] STAFF PHYSICIAN] - Activity:: Activity as Tolerated Remove Dressings/Wound Care:: 72 hours Shower/Bathe:: 72 hours Diet:: As Tolerated Discharge Orders Discharge Orders: Discharge Order (Routine); Ordered 07/09/20 Ordered By: Rian Archer DS: Diagnosis Discharge Diagnosis (1) Trigger finger, left middle finger: Status: Acute (2) Trigger finger, left ring finger: Status: Acute
[2020-07-09 08:59] VITALS: BP 115/67; PULSE 62; RESP 18; TEMP 36.7; O2SAT 100
[2020-07-09 10:29] VITALS: BP 134/66; PULSE 71; RESP 20; O2SAT 96
[2020-07-09] MEDS: Sodium Bicarbonate 50 MEQ/50 ML VIAL (10:47)
--- NOTE | 2020-07-09 18:34 | ROE_ITS ---
Date of service: 07/09/20 Time of Service: 10:48 Operative Note Operative Note DATE OF PROCEDURE: 07/09/20 PRE-OP DIAGNOSIS: Left Middle and Ring Finger Trigger Fingers POST-OP DIAGNOSIS: same PROCEDURE: Trigger Finger Release - Left Middle and Ring Finger SURGEON: Rian Archer ANESTHESIA: local PATHOLOGY: none sent COMPLICATIONS: None Patient was transported to: same day Patient's condition: stable Indications: I have seen Liliana in clinic for symptoms of a left middle and ring trigger finger. The catching, clicking, locking, and pain limited function. The diagnosis of trigger finger was evident. The symptoms had not responded to conservative measures. I discussed trigger finger release with the patient. I reviewed the risks of the procedure to include, but not limited to, bleeding, infection, pain, stiffness, incomplete release, damage to nerves or vessels, continued catching, recurrence. Despite these risks, the patient elected to proceed. Findings: There was a tightened A1 bandar which was released. The flexor tendons were inspected and the patient was able to move the finger without any catching, clicking, or locking. Procedure Description: Liliana was greeted in the preoperative holding area where the correct side was identified and marked. The consent was reviewed with the patient and signed. All questions were answered. Liliana was taken back to the operating room. The patient was placed into the supine position on the operating room table with the left arm on an arm board. All bony prominences were well padded. No prophylactic antibiotics were administered since this was a clean, elective hand surgical case. The left arm was then prepped with Chloraprep and draped in a standard fashion with stockinette and extremity drape. A timeout to confirm correct identity, side and site, procedure, allergies, anesthesia, and medical concerns was performed. The surgical site was marked as a longitudinal incision directly over the A1 bandar of the involved digits. This was confirmed with palpation during finger flexion. This area, overlying the metacarpal heads of the middle and ring fingers, was then anesthetized with 1% Lidocaine with Epinephrine and buffered with sodium bicarbonate. The patient tolerated this well and once the anesthetic had setup, the procedure began. A longitudinal incision was made through skin only, approximately 1cm, of the middle finger. The deep tissues were dissected bluntly. Once the A1 bandar and flexor tendons were identified the soft tissue including neurovascular structures were retracted medially and laterally. There were no crossing structures over the A1 bandar. The proximal edge of the bandar was identified and the bandar was incised with tenotomy scissors. There was a release of the tendons once this was fully released. The tendons were then removed from the wound and inspected. Excess synovium was resected. The tendons were then returned and the patient was asked to move the finger into deep flexion and back to extension. There was no recreation of the pre-operative symptoms. The hand was then once more inspected for any A0 bandar or area of possible constriction. The wound was then irrigated and the skin was closed with a 4-0 Nylon. Attention was then turned to the ring finger. A longitudinal incision was made through skin only, approximately 1cm. The deep tissues were dissected bluntly. Once the A1 bandar and flexor tendons were identified the soft tissue including neurovascular structures were retracted medially and laterally. There were no crossing structures over the A1 bandar. The proximal edge of the bandar was identified and the bandar was incised with tenotomy scissors. There was a release of the tendons once this was fully released. The tendons were then removed from the wound and inspected. Excess synovium was resected. The tendons were then returned and the patient was asked to move the finger into deep flexion and back to extension. There was no recreation of the pre- operative symptoms. The hand was then once more inspected for any A0 bandar or area of possible constriction. The wound was then irrigated and the skin was closed with a 4-0 Nylon. This was dressed with gauze and a Conform dressing. The patient tolerated the procedure well and was returned to the Same Day Surgery area in a stable condition suffering no known complication.
== END 2020-07-09 11:30 | disposition home or self-care (01) ==
LOC: SUR 08:57
PROVIDERS: PCP Nurse Practitioner Adult Health; Visit Provider Student in an Organized Health Care Education/Training Program
PROC: (CPT 26055; principal; 2020-07-09 10:30)
DX: M65.332 Trigger finger, left middle finger (principal); M65.342 Trigger finger, left ring finger
CPT/HCPCS: 26055 ×2

== ENCOUNTER → 2020-07-19 09:29 | Outpatient (BNVA) | payer MEDICARE, BC, SELFPAY | PROVIDERS: PCP Nurse Practitioner Adult Health; Referring Provider Nurse Practitioner Adult Health; Visit Provider Physician Assistant | DX: Z47.89 Encounter for other orthopedic aftercare (principal) ==

== ENCOUNTER 2020-10-02 20:58 | Outpatient (REF) | payer MEDICARE, BC, SELFPAY ==
[2020-10-02 20:41] LABS: Abs Immature Grans 0.02 10^3/uL (0.0-0.06); Absolute Basophil Count 0.02 10^3/uL (0.0-0.2); Absolute Eosinophil Count 0.06 10^3/uL (0.0-0.7); Absolute Lymphocyte Count 1.75 10^3/uL (1.2-3.4); Absolute Monocyte Count 0.57 10^3/uL (0.1-0.8); Absolute Neutrophil Count 4.26 10^3/uL (1.2-6.7); Basophils % 0.3; Eosinophils % 0.9; HCT 37.9 % (36.0-46.0); HGB 13.2 g/dL (11.2-15.7); Immature Grans % 0.3; Lymphocytes % 26.2; MCH 32.8 pg (27.0-33.0); MCHC 34.8 % (32.0-36.0); MPV 9.9 fL (8.0-11.0); Monocytes % 8.5; Neutrophils % 63.8; Nucleated RBC 0 %; Platelet Count 143 10^3/uL (130-400); RBC 4.03 10^6/uL (3.93-5.22); RDW 11.9 % (11.7-14.6); RDW-SD 41.3 fL; WBC 6.68 10^3/uL (4.4-10.8)
[2020-10-02 20:47] LABS: ALT 26 U/L (14-59); AST 20 U/L (15-37); Alkaline Phosphatase 50 U/L (46-116); Anion Gap 9.4 mmol/L (3-11); BUN 18 mg/dL (7-18); Bilirubin, Total 0.6 mg/dL (0.2-1.0); CO2 27.6 mmol/L (21.0-32.0); CREATININE 0.8 mg/dL (0.55-1.02); Calcium 10.4 mg/dL (8.5-10.1); Chloride 100 mmol/L (98-107); Glucose 118 mg/dL (74-106); Lipase 87 U/L (73-393); Potassium 3.5 mmol/L (3.5-5.1); Sodium 137 mmol/L (136-145); TSH (W/Ref FT4) 1.48 uIU/mL (0.36-3.74); Total Protein 7.4 g/dL (6.4-8.2)
== END 2020-10-02 20:59 | disposition home or self-care (01) ==
LOC: LBN 20:58
PROVIDERS: PCP Nurse Practitioner Adult Health; Visit Provider Nurse Practitioner Adult Health
DX: E11.9 Type 2 diabetes mellitus without complications (principal); R10.9 Unspecified abdominal pain; R53.81 Other malaise; N18.30 Chronic kidney disease, stage 3 unspecified; K76.89 Other specified diseases of liver; R30.0 Dysuria; R35.0 Frequency of micturition
CPT/HCPCS: 80053; 83690; 84443; 85025; 87086

== ENCOUNTER 2020-10-03 10:41 | Outpatient (CLI) | payer MEDICARE, BC, SELFPAY ==
--- NOTE | 2020-10-03 07:45 | DI.US_ITS ---
EXAM: US LOWER EXTREMITY VENOUS LT CLINICAL HISTORY: ? DVT DISTAL LLE, LOCALIZED SWELLING,R60.0 TECHNIQUE: Grayscale, color, and doppler imaging of the deep venous system of the left lower extremi ty was performed. COMPARISON: US US ECHOCARDIOGRAM from 12/21/2019 FINDINGS: There is no evidence of intraluminal thrombus and there is normal compression and augmentation demons trated within the common femoral veis, femoral veis, and popliteal vein. In the ipsilateral calf the interrogated veins also exhibit normal compression/ augmentation properti es. The ipsilateral saphenofemoral junction is patent. IMPRESSION: 1. No evidence of DVT in the left lower extremity. DATA REPOSITORY:
== END 2020-10-03 11:01 ==
PROVIDERS: PCP Nurse Practitioner Adult Health; Visit Provider Nurse Practitioner Adult Health
DX: R22.42 Localized swelling, mass and lump, left lower limb (principal); R60.0 Localized edema
CPT/HCPCS: 93971

== ENCOUNTER → 2020-10-08 13:05 | Outpatient (BNVA) | payer MEDICARE, BC, SELFPAY | PROVIDERS: PCP Nurse Practitioner Adult Health; Referring Provider Nurse Practitioner Adult Health; Visit Provider Internal Medicine Cardiovascular Disease | DX: I25.810 Atherosclerosis of coronary artery bypass graft(s) without angina pectoris (principal); I10 Essential (primary) hypertension; I48.0 Paroxysmal atrial fibrillation; Z79.01 Long term (current) use of anticoagulants | CPT/HCPCS: 99214 ==

== ENCOUNTER 2020-11-11 09:11 | Outpatient (CLI) | payer MEDICARE, BC, SELFPAY ==
[2020-11-11 11:08] LABS: D-Dimer 792 ng/mlFEU (<500)
== END 2020-11-11 09:12 | disposition home or self-care (01) ==
LOC: LBO 09:13
PROVIDERS: PCP Nurse Practitioner Adult Health; Visit Provider Nurse Practitioner Family
DX: M79.89 Other specified soft tissue disorders (principal); R22.42 Localized swelling, mass and lump, left lower limb; S80.12XA Contusion of left lower leg, initial encounter
CPT/HCPCS: 36415; 76881; 85379

== ENCOUNTER 2020-11-11 14:01 | Outpatient (CLI) | payer MEDICARE, BC, SELFPAY ==
--- NOTE | 2020-11-11 11:15 | DI.US_ITS ---
Exam(s) US SOFT TISSUE EXTREMITY EXAM: US SOFT TISSUE EXTREMITY CLINICAL HISTORY: Tender mass LLE since Wednesday, ? HEMATOMA,NO INJURY,R22.42. TECHNIQUE: Ultrasound was performed using standard protocol. COMPARISON: No exams were available for comparison FINDINGS: Sonographic assessment utilizing grayscale and color Doppler imaging was performed and targeted to th e area of clinical concern. There is a 2.3 cm by 2.6 cm x 1.3 cm complex avascular fluid collection in the soft tissues medial to the distal calf. The finding is most suspicious for hematoma. The adjacent posterior tibialis vein is patent. IMPRESSION: Findings suspicious for hematoma. DATA REPOSITORY:
== END 2020-11-11 14:21 ==
PROVIDERS: PCP Nurse Practitioner Adult Health; Visit Provider Nurse Practitioner
DX: R22.42 Localized swelling, mass and lump, left lower limb (principal); S80.12XA Contusion of left lower leg, initial encounter
CPT/HCPCS: 76881

== ENCOUNTER 2020-11-14 10:03 | Outpatient (CLI) | payer MEDICARE, BC, SELFPAY ==
--- NOTE | 2020-11-14 10:00 | RT.EKG_ITS ---
APPROVED REPORT Exam: Resting ECG Reason for Exam: dizziness Patient Location: O HR:60 bpm ECG Measurements Heart Rate 60 AXIS ME 220 P [id number] QRSd 110 QRS 56 QT 423 T 68 QTc 425 Conclusion Prolonged ME interval...ME >220, V-rate 50- 90 LVH with secondary repolarization abnormality...multi-LVH criteria, abnrm ST-T Inferior infarct, old...Q >35mS, II III aVF
== END 2020-11-14 10:04 | disposition home or self-care (01) ==
LOC: DI.KIM 10:04
PROVIDERS: PCP Nurse Practitioner Adult Health; Visit Provider Nurse Practitioner
DX: R42 Dizziness and giddiness (principal)
CPT/HCPCS: 93010

== ENCOUNTER 2020-11-14 15:07 | Outpatient (CLI) | payer MEDICARE, BC, SELFPAY ==
--- NOTE | 2020-11-14 10:00 | DI.US_ITS ---
Exam(s) US LOWER EXTREMITY VENOUS LT EXAM: US LOWER EXTREMITY VENOUS LT CLINICAL HISTORY: LLE hematoma, now reports calf pain,increased pain R22.42 SWELLING MASS LUM. TECHNIQUE: Ultrasound performed using standard protocol. COMPARISON: US US SOFT TISSUE EXTREMITY from 11/11/2020 FINDINGS: Duplex venous ultrasound was performed according to the usual protocol. The deep veins are freely com pressible throughout and there is normal flow augmentation with manual calf compression. 2D and Doppl er evaluation are unremarkable. IMPRESSION: No evidence of deep venous thrombosis of the left lower extremity. Note is made of a 33 x 34 x 12 millimeter in diameter presumed hematoma of the left lower calf region which is heterogeneous echogenicity and is avascular. DATA REPOSITORY:
== END 2020-11-14 15:27 ==
PROVIDERS: PCP Nurse Practitioner Adult Health; Visit Provider Nurse Practitioner
DX: R22.42 Localized swelling, mass and lump, left lower limb (principal); M79.662 Pain in left lower leg; S80.12XA Contusion of left lower leg, initial encounter
CPT/HCPCS: 93971

== ENCOUNTER 2020-11-27 12:20 | Outpatient (CLI) | payer MEDICARE, BC, SELFPAY ==
--- NOTE | 2020-11-27 12:15 | RT.EKG_ITS ---
APPROVED REPORT Exam: Resting ECG Reason for Exam: reassess HI interval--seen on 11/14/2020 ECG Patient Location: O HR:63 bpm ECG Measurements Heart Rate 63 AXIS HI 228 P [id number] QRSd 118 QRS 52 QT 441 T -8 QTc 452 Conclusion Atrial-paced complexes...other complexes also detected Borderline prolonged HI interval...HI >212, V-rate 50- 90 Nonspecific intraventricular conduction delay...QRSd >115mS, not LBBB/RBBB Inferior infarct, old...Q >35mS, II III aVF Nonspecific T abnormalities, lateral leads...T <-0.10mV, I aVL V5 V6
== END 2020-11-27 12:21 | disposition home or self-care (01) ==
LOC: DI.KIM 12:21
PROVIDERS: PCP Nurse Practitioner Adult Health; Visit Provider Nurse Practitioner Adult Health
DX: I44.0 Atrioventricular block, first degree (principal)
CPT/HCPCS: 93010

== ENCOUNTER 2021-02-04 02:57 | Outpatient (CLI) | payer MEDICARE, BC, SELFPAY ==
--- NOTE | 2021-02-04 | DI.DEXA_ITS ---
Exam(s) XR DEXA BONE DENSITY W/WO RUPA EXAM: XR DEXA BONE DENSITY W/WO RUPA CLINICAL HISTORY: H/O OSTEOPENIA, T 1 COMPRESSION FX, REASSESS, M81.0 TECHNIQUE: Routine DEXA evaluation of the lumbar spine, hip, or forearm. COMPARISON: Prior DEXA scan April 2017 FINDINGS: Performed on a HoloCureeo unit. Lateral image: No compression fracture evident. Lumbar Spine total T-score: -1.5. Prior 2017 reading was -1.4. Hip total T-score:-1.2 . Prior 2017 reading was -0.2. Independent reading at the femoral neck yields a T-score of -1.6 Forearm total T-score: -1.8 IMPRESSION: Bone mineral density measures in the osteopenia range. Fracture risk is moderate. Note: Any spine fracture indicates 5x risk for subsequent spine fracture and 2x risk for subsequent h ip fracture. World Health Organization criteria for BMD interpretation classify patients: Normal...... T- Score at or above -1.0 Osteopenic... T- Score between -1.0 and -2.5 Osteoporosis... T-Score at or below -2.5
== END 2021-02-04 03:17 ==
PROVIDERS: PCP Nurse Practitioner Adult Health; Visit Provider Nurse Practitioner Adult Health
DX: M81.0 Age-related osteoporosis without current pathological fracture (principal); M48.54XA Collapsed vertebra, not elsewhere classified, thoracic region, initial encounter for fracture; R93.7 Abnormal findings on diagnostic imaging of other parts of musculoskeletal system; Z87.39 Personal history of other diseases of the musculoskeletal system and connective tissue
CPT/HCPCS: 77080

== ENCOUNTER 2021-03-12 02:16 | Outpatient (RCR) | payer MEDICARE, BC, SELFPAY ==
[2021-03-12] MEDS: Normal Saline Flush 10 ML SYR IVP (13:54)
== END 2021-04-10 23:59 | disposition home or self-care (01) ==
LOC: INF 02:16
PROVIDERS: PCP Nurse Practitioner Adult Health; Visit Provider Nurse Practitioner Adult Health
DX: M81.0 Age-related osteoporosis without current pathological fracture (principal)
CPT/HCPCS: 96374; J3490

== ENCOUNTER → 2021-04-16 15:03 | Outpatient (BNVA) | payer MEDICARE, BC, SELFPAY | PROVIDERS: PCP Nurse Practitioner Adult Health; Referring Provider Nurse Practitioner Adult Health; Visit Provider Internal Medicine Cardiovascular Disease | DX: R09.89 Other specified symptoms and signs involving the circulatory and respiratory systems (principal); Z45.018 Encounter for adjustment and management of other part of cardiac pacemaker | CPT/HCPCS: 93280 ==

== ENCOUNTER 2021-04-23 22:08 | Outpatient (CLI) | payer MEDICARE, BC, SELFPAY ==
--- NOTE | 2021-04-23 14:30 | DI.RAD_ITS ---
Exam(s) XR CERVICAL SPINE COMP 4-5V EXAM: XR CERVICAL SPINE COMP 4-5V CLINICAL HISTORY: r/o compression fx M54.2 CERVICALGIA M54.2 PAIN M81.0 OSTEOPOROSIS. TECHNIQUE: 2D digital imaging was performed. COMPARISON: No exams were available for comparison FINDINGS: There is no evidence of fracture nor listhesis nor offset of the spinal laminar line. There is moder ate multilevel disc space narrowing with relative sparing of disc height at C5-6 level. Small bilateral Luschka joints osteophytes are noted at C4-5 level. None at C5-6 level. There are n o cervical ribs. Sternotomy wires and cardiac pacemaker noted and there is also heavy calcification noted within the l eft carotid artery in the neck indicating atherosclerotic involvement. IMPRESSION: Multilevel degenerative disc disease. Heavy calcification left carotid artery. Recommend Doppler ultrasound to determine if there is signi ficant plaque-stenosis at this level. DATA REPOSITORY: RADIATION DOSE DELIVERED:
--- NOTE | 2021-04-23 14:30 | DI.RAD_ITS ---
Exam(s) XR THORACIC SPINE COMPLETE EXAM: XR THORACIC SPINE COMPLETE CLINICAL HISTORY: r/o compression fx M54.2 CERVICALGIA M54.6 PAIN M81.0 OSTEOPOROSIS. TECHNIQUE: 2D digital imaging was performed. COMPARISON: CR THORACIC SPINE from 01/22/2014 FINDINGS: There is disc space narrowing at T8-T9 level, slightly more so than on the previous study. No compre ssion fractures. No listhesis. No ominous osseous lesions. No scoliosis. No abnormal widening of the paraspinal lines. IMPRESSION: DATA REPOSITORY: RADIATION DOSE DELIVERED:
== END 2021-04-23 22:28 ==
PROVIDERS: PCP Nurse Practitioner Adult Health; Visit Provider Nurse Practitioner Adult Health
DX: M54.2 Cervicalgia (principal); M54.6 Pain in thoracic spine; M81.0 Age-related osteoporosis without current pathological fracture; M48.04 Spinal stenosis, thoracic region; M51.34 Other intervertebral disc degeneration, thoracic region; I25.10 Atherosclerotic heart disease of native coronary artery without angina pectoris
CPT/HCPCS: 72050; 72072

== ENCOUNTER 2021-04-30 03:58 | Outpatient (CLI) | payer MEDICARE, BC, SELFPAY ==
[2021-04-30 11:19] LABS: HCT 37.6 % (36.0-46.0); HGB 12.3 g/dL (11.2-15.7); MCH 32.2 pg (27.0-33.0); MCHC 32.7 % (32.0-36.0); MCV 98.4 fL (80-95); MPV 9.3 fL (8.0-11.0); Platelet Count 131 10^3/uL (130-400); RBC 3.82 10^6/uL (3.93-5.22); RDW 12.1 % (11.7-14.6); RDW-SD 43.8 fL; WBC 5.08 10^3/uL (4.4-10.8)
[2021-04-30 12:06] LABS: Hemoglobin A1C 7.2 % (<5.7)
[2021-04-30 12:21] LABS: ALT 28 U/L (14-59); AST 19 U/L (15-37); Alkaline Phosphatase 52 U/L (46-116); Anion Gap 8.3 mmol/L (3-11); BUN 22 mg/dL (7-18); Bilirubin, Total 0.4 mg/dL (0.2-1.0); CO2 28.7 mmol/L (21.0-32.0); Calcium 9.7 mg/dL (8.5-10.1); Calculated LDL 61 mg/dL (<100); Chloride 104 mmol/L (98-107); Cholesterol 143 mg/dL (<200); Estimated GFR 53.48 (mL/min/1.73m2); Glucose 208 mg/dL (74-106); HDL Cholesterol 59 mg/dL (40-60); Potassium 3.8 mmol/L (3.5-5.1); Sodium 141 mmol/L (136-145); TSH (W/Ref FT4) 1.44 uIU/mL (0.36-3.74); Total Protein 7.5 g/dL (6.4-8.2); Triglyceride 117 mg/dL (<150); Vitamin B12 949 pg/mL (193-986)
[2021-05-01 00:42] LABS: Vitamin D 25 Total 48.4 ng/mL (30-100)
== END 2021-04-30 03:59 | disposition home or self-care (01) ==
LOC: LBO 03:58
PROVIDERS: PCP Nurse Practitioner Adult Health; Visit Provider Nurse Practitioner Adult Health
DX: E11.42 Type 2 diabetes mellitus with diabetic polyneuropathy; E78.5 Hyperlipidemia, unspecified; I10 Essential (primary) hypertension; R53.83 Other fatigue; K21.9 Gastro-esophageal reflux disease without esophagitis; N18.9 Chronic kidney disease, unspecified; K76.9 Liver disease, unspecified; F41.8 Other specified anxiety disorders
CPT/HCPCS: 36415; 80053; 80061; 82306; 85027; 82043; 82570; 82607; 83036; 84443

== ENCOUNTER 2021-06-11 01:15 | Outpatient (RCR) | payer MEDICARE, BC, SELFPAY ==
[2021-06-11] MEDS: Normal Saline Flush 10 ML SYR IVP (13:30)
== END 2021-07-11 23:59 | disposition home or self-care (01) ==
LOC: INF 01:15
PROVIDERS: PCP Nurse Practitioner Adult Health; Visit Provider Nurse Practitioner Adult Health
DX: M81.0 Age-related osteoporosis without current pathological fracture (principal); Z79.83 Long term (current) use of bisphosphonates
CPT/HCPCS: 96374; J1740

== ENCOUNTER 2021-07-03 12:40 | Outpatient (REF) | payer MEDICARE, BC, SELFPAY ==
[2021-07-05 12:40] LABS: COVID-19 RT-PCR UVMMC Result Negative (Negative)
== END 2021-07-03 12:41 | disposition home or self-care (01) ==
LOC: LBN 12:40
PROVIDERS: PCP Nurse Practitioner Adult Health; Visit Provider Physician Assistant
DX: Z20.822 Contact with and (suspected) exposure to COVID-19 (principal)
CPT/HCPCS: U0003

== ENCOUNTER 2021-10-06 01:51 | Outpatient (CLI) | payer MEDICARE, BC, SELFPAY ==
--- NOTE | 2021-10-06 14:02 | DI.US_ITS ---
APPROVED REPORT EXAM: Comprehensive 2D, Doppler, and color-flow Echocardiogram Patient Location: Out-Patient Web Site Specialist: Leydi Elizabeth RDCS (AE) Indications: Mitral Regurgitation, CAD Other Information Study Quality: Adequate Conclusion Mild concentric left ventricular hypertrophy. Normal left ventricular chamber size. Estimated eject ion fraction 55 to 60%. Wall motion is normal Normal right ventricular size and systolic function The left atrium is moderately dilated. The right atrium is normal in size Aortic valve is mildly sclerotic and trileaflet with mild regurgitation Normal mitral leaflets. Mild mitral annular calcification. Mild mitral regurgitation Normal tricuspid valve with mild regurgitation. Estimated right ventricular systolic pressure is 33 mmHg Pacemaker lead noted in the right heart Dilated ascending aorta measuring 3.65 cm Wall motion Left Ventricle The left ventricle is normal size. The left ventricular systolic function is normal. The left ventric ular ejection fraction is within the normal range. Mild concentric left ventricular hypertrophy. Ther e is normal LV segmental wall motion. There is no ventricular septal defect visualized. LVEF is 56%. Right Ventricle The right ventricle is normal size. The right ventricular systolic function is normal. The RVSP is 32 .6 mmHg. Pacemaker lead is present in the right ventricle. Atria Left atrium is moderately dilated. The right atrium size is normal. The interatrial septum is intact with no evidence for an atrial septal defect. Aortic Valve The aortic valve is mildly sclerotic Aortic valve is trileaflet. No hemodynamically significant valvu lar aortic stenosis. Mild aortic regurgitation. Mitral Valve The mitral valve is normal in structure. Mild mitral annular calcification. No evidence of mitral claire ve stenosis. Mild mitral regurgitation. Tricuspid Valve The tricuspid valve is normal in structure. There is no tricuspid valve stenosis. Mild tricuspid regu rgitation. Pulmonic Valve The pulmonary valve is normal in structure. There is no pulmonic valvular stenosis. Mild pulmonic reg urgitation. Great Vessels The aortic root is normal in size. The ascending aorta is mildly dilated. Aortic arch is not well vis ualized. IVC is normal in size and collapses >50% with inspiration. Pericardium There is no pericardial effusion. 2D Dimensions IVSD d PLAX 1.13 cm F: 0.6-1.0 LV Vol A2C d MOD 104.1 mL LVPW d PLAX 1.10 cm F: 0.6 - 1.0 LV Vol A4C d MOD 93.0 mL LVID d PLAX 4.08 cm F: 3.8 - 5.2 LA vol/ BSA A2C s A-L 45.1 mL/m2 LVDs 2.90 cm F: 2.2 - 3.5 LA vol/ BSA A4C s A-L 40.7 mL/m2 Ao Root d 2.89 cm F: 2.7 - 3.3 LA Vol/ BSA Biplane s A-L 44.1 mL/m2 RA Area A4C 15.79 cm2 LA Area A4C s MOD 20.88 cm2 RA Vol/ BSA A4C s A-L 27.0 mL/m2 LA Area A2C s MOD 21.34 cm2 Ao Asc Diam d 3.65 cm F: 2.3 - 3.1 LV EF A4C MOD 56.4 % LV EF Teichholz 54.7 % LV EF A2C MOD 56.7 % LVEF (Proctor's) 57.07 % F: 54 - 74 LV EF Biplane MOD 57.1 % LV Volume 79.75 mL F: 46 - 106 SV 56.65 mL LV Volume Index 48.62 mL/m2 F: 29 - 61 SV Index 34.38 mL/m2 LV Vol Biplane MOD 99.3 mL FS 28.00 % M-Mode TAPSE 1.81 cm (M/F) >1.7 LV Diastology E/A Ratio 1.8 MV E Vmax 0.88 (0.4-1.3 m/s) MV A Vmax 0.50 (0.4-1.3 m/s) MV E/A Ratio 1.72 Aortic Valve LVOT Area 3.59 cm2 AoV Area Vmax 1.46 cm2 LVOT Vmax 0.86 m/s AoV Area/ BSA (Vmax) 0.89 cm2/m2 LVOT Mean Lei. 0.58 m/s PEYTON Mean Lei. 1.39 cm2 LVOT Peak Grad 2.9 mmHg PEYTON Mean Lei. Index 0.85 cm2/m2 LVOT Mean Grad 1.5 mmHg AR DT 1721 msec LVOT VTI 0.211 m AR PHT 499 msec LVOT Diam s 2.10 cm AoV Vmax 2.10 m/s Velocity Ratio 0.40 AoV Mean Lei. 1.49 m/s AoV Peak Grad 17.7 mmHg LVOT SV 75.62 mL AoV Mean Grad 9.9 mmHg AoV VTI 0.487 m AoV Area VTI 1.55 cm2 AoV Area/ BSA (VTI) 0.94 cm/m2 Mitral Valve MV DT 171 (160-240 msec) MV PHT 50 msec MV Area PHT 4.43 cm2 MV VTI 0.240 m MV Area VTI 3.15 (4.0-6.0 cm2) Pulmonary Valve PV Vmax 0.98 (0.5-1.5 m/s) RVOT Peak Gr. 2.23 mmHg PV Peak Grad 3.8 mmHg RVOT Mean Gr. 1.15 mmHg PV Mean Grad 1.9 mmHg RVOT VTI 0.184 m PV VTI 0.203 m RVOT Vmax 0.75 m/s Tricuspid Valve TR Peak Grad 29.6 mmHg TR Vmax 2.72 m/s RA Pressure 3.00 mmHg RVSP (TR) 32.6 mmHg
== END 2021-10-06 02:11 ==
PROVIDERS: PCP Nurse Practitioner Adult Health; Visit Provider Internal Medicine Cardiovascular Disease
DX: I25.10 Atherosclerotic heart disease of native coronary artery without angina pectoris (principal)
CPT/HCPCS: 93306

== ENCOUNTER → 2021-10-13 12:58 | Outpatient (BNVA) | payer MEDICARE, BC, SELFPAY | PROVIDERS: PCP Nurse Practitioner Adult Health; Referring Provider Nurse Practitioner Adult Health; Visit Provider Internal Medicine Cardiovascular Disease | DX: I48.91 Unspecified atrial fibrillation (principal); I25.10 Atherosclerotic heart disease of native coronary artery without angina pectoris; Z95.0 Presence of cardiac pacemaker | CPT/HCPCS: 99214; 99213 ==

== ENCOUNTER → 2021-10-20 01:32 | Outpatient (CLI) | payer MEDICARE, BC, SELFPAY ==
--- NOTE | 2021-10-20 07:15 | DI.RAD_ITS ---
Exam(s) XR KNEE RT 3V AP,LAT,SHOAIB EXAM: XR KNEE RT 3V AP,LAT,SHOAIB CLINICAL HISTORY: Assess for OA,rt knee pain, m25.561. TECHNIQUE: 2D digital imaging was performed. Three views. COMPARISON: CR RIGHT KNEE 3 VIEWS from 07/15/2016 CR RIGHT KNEE LIMITED 1 OR 2 VIEW from 08/24/2016 FINDINGS: BONES: The bones appear osteopenic. No acute fracture is present. No bony destructive lesion is seen . JOINTS: The knee is normally aligned. No joint effusion is seen. Joint spaces are well maintained. There is minimal periarticular spurring. SOFT TISSUE: Vascular calcifications. IMPRESSION: Minimal degenerative changes. DATA REPOSITORY: RADIATION DOSE DELIVERED:
== END ==
PROVIDERS: PCP Nurse Practitioner Adult Health; Visit Provider Nurse Practitioner Adult Health
DX: M25.561 Pain in right knee (principal); M17.11 Unilateral primary osteoarthritis, right knee; M85.88 Other specified disorders of bone density and structure, other site
CPT/HCPCS: 73562

== ENCOUNTER 2021-10-29 17:44 | Emergency (ER) | payer MEDICARE, BC, SELFPAY ==
[2021-10-29 17:52] VITALS: BP 151/64; PULSE 62; RESP 16; TEMP 36.8; O2SAT 96
--- OUTSIDE RECORDS SUMMARY | 2021-10-29 17:58 | XMS_ITS ---
:1940 Author Care Team Providers Name Role Phone JUANA MONTOYA Primary Care Provider [phone] Allergies Code Code System Name Reaction Severity Status Onset 7052 RxNorm Morphine Hallucinations Moderate to Active ? Severe Medications Name Status Start Date Stop Date ? ? 1st Medx-Patch With Lidocaine 4 %-20 %-0.025 %-5 % topical Activ e ? Not available 1 PRN for up to 12 hrs acetaminophen Completed ? 12/12/2019 325 mg 2 tabets acetaminophen 325 mg capsule Active ? Not available Take 1 capsule 4 times a day by oral route as needed. albuterol sulfate 90 mcg/actuation breath activated powder inhal er Active ? Not available Inhale 2 puffs every 4 hours by inhalation route as needed. amlodipine 2.5 mg tablet Active ? Not brandy ilable Take 1 tablet every day by oral route. apixaban 2.5 mg tablet Active ? Not avail able Take 1 tablet twice a day by oral route. atorvastatin 40 mg tablet Active ? Not av ailable Take 1 tablet every day by oral route. buspirone 7.5 mg tablet Active ? Not avai lable Take 1 tablet every day by oral route. dicyclomine 20 mg tablet Active ? Not brandy ilable Take 1 tablet every day by oral route as needed. erythromycin 5 mg/gram (0.5 %) eye ointment Active ? Not available APPLY 1 CM RIBBON INTO THE LOWER CONJUN CTIVAL SAC(S) IN THE AFFECTED EYE(S) BY OPHTHALMIC ROUTE 3 TIMES PER DAY furosemide 40 mg tablet Active ? Not avai lable Take 1 tablet every day by oral route. gabapentin 100 mg capsule Active ? Not av ailable Take 2 capsules twice a day by oral route. hydralazine 25 mg tablet Active ? Not brandy ilable Take 1 tablet 3 times a day by oral route. insulin glargine (U-100) 100 unit/mL subcutaneous solution Activ e ? Not available Inject 120 units every day by subcutaneous route. isosorbide dinitrate 30 mg tablet Active ? Not available Take 1 tablet twice a day by oral route. levothyroxine 75 mcg tablet Active ? Not available Take 1 tablet every day by oral route. melatonin 3 mg capsule Active ? Not avail able Take 1 capsule every day by oral route at bedtime. metoprolol succinate ER 25 mg capsule sprinkle, ext. release 24 hr Active ? Not available Take 1 capsule every day by oral route. Nitrostat 0.4 mg sublingual tablet Active ? Not available Place 1 tablet by sublingual route as needed. paroxetine 20 mg tablet Active ? Not avai lable Take 1 tablet every day by oral route. sucralfate 1 gram tablet Active ? Not brandy ilable Take 1 tablet 4 times a day by oral route. trazodone 50 mg tablet Active ? Not avail able Take 1 tablet every day by oral route at bedtime. Problems Name Status Onset Date Source ? Peripheral Nerve Disease Active 08/10/2019 ? Cerebrovascular Accident Active 08/10/2019 ? Fatigue Active 08/10/2019 ? Tremor Active 08/10/2019 ? Contracture of Joint of Left Hand Active 08/10/2019 ? Diabetes Mellitus Active 08/14/2019 ? Hyperlipidemia Active 08/14/2019 ? Anxiety Active 08/14/2019 ? Depressive Disorder Active 08/14/2019 ? 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 Coronary Arteriosclerosis Active 08/14/2019 ? Pulmonary Embolism Active 08/14/2019 ? Atrial Fibrillation Active 08/14/2019 ? Kidney Disease Active 08/14/2019 ? Arthritis Active 08/14/2019 ? Insomnia Active 11/14/2019 ? Excessive Daytime Sleepiness - Normal Night Active 11/2019 ? 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 Obstructive Sleep Apnea Syndrome Active ? ? Hypertensive Disorder Active ? ? Chronic Obstructive Lung Disease Active ? ? Procedures None recorded. Results Lab Results None recorded. Past Encounters None recorded. Social History Tobacco Smoking Status Former Smoker (1/4 pack per day) No no: QUIT 2000 Vaccine List None recorded. Plan of Care Reminders Provider Appointments None ? ? recorded. Lab None ? ? recorded. Referral None ? ? recorded. Procedures None ? ? recorded. Surgeries None ? ? recorded. Imaging None ? ? recorded. Vitals 02/15/2020 12:30PM Office 30 Height Weight BMI Blood Pressure 157.48 cm 82.37 kg 33.2 kg/m2 144/50 mm[Hg] 12/12/2019 11:30AM Office 30 Height Weight BMI Blood Pressure 157.48 cm 84.5 kg 34.1 kg/m2 136/72 mm[Hg] 11/14/2019 09:30AM New Patient 47 Height Weight BMI 157.48 cm 81.65 kg 32.9 kg/m2
--- NOTE | 2021-10-29 18:00 | DI.CT_ITS ---
Exam(s) CT HEAD CERVICAL SPINE WO EXAM: CT HEAD CERVICAL SPINE WO CLINICAL HISTORY: Fall, pain, anticoagulated. TECHNIQUE: Imaging Protocol: Axial computed tomography images with coronal and sagittal reformatted images were created and reviewed COMPARISON: CT CT HEAD WO from 08/20/2019 FINDINGS: BRAIN: There are no skull fractures nor fluid in the visualized paranasal sinuses. There is no evidence of intracranial hemorrhage, mass effect, or shift of midline structures. There are no extra-axial fluid collections. The ventricles are not enlarged or shifted and there is no blo od within the ventricular system nor within the basal cisterns. There is mild periventricular hypodensity consistent with chronic small vessel disease, unchanged. N o new territorial infarction. Heavy calcification within the internal carotid arteries in the skull base continues into the supraclinoid aspect of these vessels and proximal middle cerebral arteries, u nchanged. There is no asymmetric hyperdense MCA. Some calcifications also seen in the vertebral art eries at skull base. CERVICAL SPINE: There is no evidence of acute fracture nor listhesis. No significant prevertebral soft tissue swelli ng. There is multilevel moderate disc space narrowing at C3-4, C4-5 and C6-7 levels. Annular bulging is noted at multiple levels. Mild facet joint degenerative changes. There is no significant facet joint malalignment. No significant osseous lesions evident. IMPRESSION: No acute intracranial findings on this noninfused CT scan of the brain. No evidence of acute cervical spine fracture, malalignment, nor acute compromise of the cervical spin al canal. Incidentally noted is heavy calcification within carotid artery in the right-side of the neck. If cl inically indicated follow-up Doppler imaging study of the carotid arteries in the neck be performed t o determine if there is significant atherosclerotic stenosis. RADIATION DOSE DELIVERED: 1,296.35mGy.cm Total DLP DATA REPOSITORY: All CT scans at this facility are submitted to the National Radiology Data Registry (NRDR) Dose Index Registry (DIR) with the [employer] ([employer]). RADIATION OPTIMIZATION: All CT scans at this facility use at least one of these dose optimization te chniques: automated exposure control; mA and/or kV adjustment per patient size (includes targeted exa ms where dose is matched to clinical indication); or iterative reconstruction.
--- NOTE | 2021-10-29 18:02 | W.ED.GENAD ---
Discharge Plan Disposition Patient Disposition: HOME Condition: Stable Discharge Details Clinical Impression: Head injury, Fall, Neck pain Primary Care Provider: Linn Paulino ED Provider: Xander Soto Home Meds and New Rx's Prescriptions: Continued lidocaine 5 % adhesive patch,medicated 1 patch TP DAILY PRN0RF Label Comments: 06/15/19-unable to verify meds, pt left drug list at home and does not know meds/doses. Rx Instructions: leave on most painful area for 12 hrs nitroglycerin [Nitrostat] 0.4 mg tablet, sublingual 0.4 mg Sublingual Q5 MIN PRN X3 PRN (Reason: chest pain) Qty: 20 1RF Label Comments: 06/15/19-unable to verify meds, pt left drug list at home and does not know meds/doses. Rx Instructions: Q5min, x3 max, PRN chest pressure (DME) blood-glucose meter Misc See Rx Instructions .MEDSUPPLY Qty: 1 0RF Rx Instructions: As directed to check blood glucose daily. No insulin. Dispense covered brand. (DME) Blood Glucose Test Strip See Rx Instructions .MEDSUPPLY Qty: 100 3RF Rx Instructions: As directed to check blood glucose daily. No insulin. Dispense covered brand. (DME) lancets Misc See Rx Instructions .MEDSUPPLY Qty: 100 3RF Rx Instructions: As directed to check blood glucose daily. No insulin. Dispense covered brand. omeprazole 20 mg tablet,delayed release (DR/EC) 20 mg PO .every other day Qty: 45 3RF Rx Instructions: To take every other day for atypical chest pain/heartburn zoledronic byua-rhxbbtho-meerl [Reclast] 5 mg/100 mL piggyback See Rx Instructions IV .once per year Qty: 100 0RF Rx Instructions: 100mL IV .once per year; administer over at least 15 mins lorazepam 0.5 mg tablet 0.5 mg PO DAILY PRN (Reason: acute anxiety) Qty: 28 2RF Rx Instructions: For chronic anxiety attacks amlodipine 2.5 mg tablet See Rx Instructions PO DAILY Qty: 360 3RF Rx Instructions: 2.5mg AM, 5mg PM PO daily; High blood pressure or as directed (dosed changed 10/09/2020) Eliquis 5 mg tablet 5 mg PO BID Qty: 180 3RF Label Comments: 06/15/19-unable to verify meds, pt left drug list at home and does not know meds/doses. Rx Instructions: anticoagulation for atrial fibrillation lidocaine 5 % adhesive patch,medicated 1 patch topical DAILY PRN (Reason: compression fracture pain) Qty: 30 0RF Rx Instructions: leave on most painful area for 12 hrs, then remove for compression fracture pain; may cut to size cyclobenzaprine 10 mg tablet 10 mg PO TID PRN (Reason: muscle spasm) Qty: 10 0RF clotrimazole 1 % cream 1 applic topical BID 28 Days Qty: 15 0RF Rx Instructions: apply thin layer to corner of mouth for up to 4 weeks until resolved gabapentin 300 mg capsule See Rx Instructions PO .COMPLEX 0RF Rx Instructions: Take 1 cap in AM, 1 cap in the afternoon, 2 caps HS for neuropathic pain OR 2 caps BID; dose increase 12/16/20 cyanocobalamin (vitamin B-12) 1,000 MCG tablet 1,000 mcg PO DAILY Qty: 90 3RF Label Comments: 06/15/19-unable to verify meds, pt left drug list at home and does not know meds/doses. cholecalciferol (vitamin D3) [Vitamin D3] 1,000 UNIT capsule 1,000 unit PO BID 0RF Label Comments: 06/15/19-unable to verify meds, pt left drug list at home and does not know meds/doses. aspirin [Aspirin Low-Strength] 81 mg tablet,chewable 81 mg PO DAILY Qty: 90 3RF Label Comments: 06/15/19-unable to verify meds, pt left drug list at home and does not know meds/doses. (DME) lancets [FreeStyle Lancets] 28 gauge misc 1 ea Miscellaneous as directed Qty: 100 3RF Rx Instructions: Free style lancet to monitor daily for E11.9 for goal A1C <7% (DME) Blood Glucose Test Strip See Rx Instructions .ROUTE .MEDSUPPLY Qty: 100 3RF Rx Instructions: As directed to check daily blood glucose. No insulin. Dispense covered brand. Dx: E11.9 to maintain HbA1c less than 7%. losartan 50 mg tablet 50 mg PO BID Qty: 180 3RF Rx Instructions: Blood pressure nystatin 100,000 unit/gram cream 1 applic TP BID PRN (Reason: robin rash) Qty: 15 0RF Rx Instructions: Apply to affected area on abdomen benzonatate 100 mg capsule 100 mg PO TID PRN (Reason: cough) Qty: 14 0RF carvedilol 3.125 mg tablet 3.125 mg PO BID Qty: 180 3RF Rx Instructions: To take with 6.25mg tab for total dose of 9.375 BID for AFib and HTN carvedilol 6.25 mg tablet 6.25 mg PO BID Qty: 180 3RF Rx Instructions: To take with 3.125mg tab for dose of 9.375 BID for AFib and HTN lamotrigine [Lamictal] 100 mg tablet 100 mg PO BID Qty: 180 3RF Label Comments: 06/15/19-unable to verify meds, pt left drug list at home and does not know meds/doses. Rx Instructions: atorvastatin 40 mg tablet 40 mg PO DAILY Qty: 90 3RF Label Comments: 06/15/19-unable to verify meds, pt left drug list at home and does not know meds/doses. citalopram 20 mg tablet 20 mg PO QHS Qty: 90 3RF Rx Instructions: Depression & anxiety acetaminophen [Tylenol] 325 MG tablet 650 mg PO Q4H PRN PRNQty: 0 0RF Discharge Instructions Instructions: Head Injury (ED), Neck Pain (ED), Fall Prevention for Older Adults (ED) Additional Instructions: CT imaging of your head and neck are unremarkable. Please watch for new or worsening symptoms and return to the ER for any concerns. Cool compresses as tolerated. [id number] Tylenol as directed for discomfort. Please watch for new or worsening symptoms and return to the ER for any concerns. Otherwise please contact your primary care provider tomorrow to discuss your ER visit and need for outpatient reevaluation Medical Decision Making 81-year-old female, on apixaban, presents to the ER for mechanical fall backwards striking the back of her head and complaining of neck pain. She reports that she feels shaken up. She denies LOC, visual changes, any symptoms prior to the fall, chest pain, abdominal pain, nausea, vomiting, numbness, tingling, focal weakness. Clinically she appears well, nontoxic, neurologically intact. C-collar in place. Plan is to obtain CT of head and C-spine CT of head and C-spine unremarkable per radiology Discussed results with patient. She is relieved. C-collar removed. Reports mild dull global headache. She remains well, nontoxic, neurologically intact. Patient reports that she would like to get home with her . She has no additional questions or concerns. Strict discharge and return precautions were provided. This documentation was generated using [employer] dictation system, please disregard any oddities of phrase or misspellings. Medical Records Medical records reviewed: Yes I reviewed the patient's medical records. Imaging Data Radiologic Study: Attestation: I personally reviewed and interpreted this imaging study as follows: Imaging: CT Scan Radiologist's impression: PROCEDURE INFORMATION: Exam: CT Head Without Contrast Exam date and time: 10/29/2021 6:20 PM Age: 81 years old Clinical indication: Injury or trauma; Fall; Blunt trauma (contusions or hematomas); Consciousness not specified; Injury details: Anticoagulated TECHNIQUE: Imaging protocol: Computed tomography of the head without contrast. COMPARISON: 1. CT HEAD WO 08/20/2019 8:[address] HEAD CERVICAL SPINE WO 11/21/2018 3:48 PM FINDINGS: Brain: Prominence of cerebral sulci reflects diffuse cerebral atrophy. Poorly marginated hypodensities seen throughout the deep and periventricular white matter of both cerebral hemispheres are consistent with microvascular ischemic changes. Brainstem and cerebellum are unremarkable and there is no evidence of acute infarct or intracranial hemorrhage. Cerebral ventricles: Dilatation of the 3rd and lateral ventricles is commensurate with the degree of cerebral atrophy. Paranasal sinuses: Grossly clear throughout. Mastoid air cells: Grossly clear bilaterally. Bones/joints: Bony calvarium and skull base are intact and no acute fractures are detected. Soft tissues: Unremarkable. IMPRESSION: Diffuse atrophy and probable microvascular ischemic changes with no evidence of acute infarct, recent hemorrhage or hydrocephalus. No acute intracranial process is detected. PROCEDURE INFORMATION: Exam: CT Cervical Spine Without Contrast Exam date and time: 10/29/2021 6:20 PM Age: 81 years old Clinical indication: Injury or trauma; Fall; Blunt trauma (contusions or hematomas); Consciousness not specified; Injury details: Anticoagulated TECHNIQUE: Imaging protocol: Computed tomography images of the cervical spine without contrast. COMPARISON: 1. CT HEAD WO 08/20/2019 8:[address] HEAD CERVICAL SPINE WO 11/21/2018 3:48 PM FINDINGS: Bones/joints: There is arthrosis involving the anterior atlantodental interval with loss of joint space and marginal osteophyte formation and the odontoid process is grossly intact. There are minimal anterolistheses of C2 upon C3, C3 upon C4, C5 upon C6 and C7 upon T1. Probable ankylosis of the facet joints bilaterally at C2-C3 with no acute fractures detected involving the posterior elements of the cervical spine. Discs/Spinal canal/Neural foramina: Loss of disc space height with posterior osteocartilaginous ridging/disc extrusion is most significant at C3-C4, C4-C5 and C5-C6 resulting in canal stenoses and suspected mass-effect upon the ventral cord which could be better evaluated with MRI. Lungs: No pneumothorax or consolidation detected at the lung apices. Soft tissues: Unremarkable. IMPRESSION: Cervical spondylosis with central canal narrowing as above. No acute cervical fractures are detected. HPI General Mode of arrival: ambulatory. Date/Time Provider Initiated Documentation: 10/29/21 18:02. Limitations to Documentation: no limitations. Information obtained by: patient. History of Present Illness 81 year old F presents to the emergency department with the chief complaint of fall - head/neck pain, described as moderate, with intensity rated at 6. Quality is described as aching, and is localized to the head and neck. Patient reports no radiation. Patient started experiencing this minute(s) (30) and it has been constant. improves with No relieving factors improve symptom(s), No exacerbating factors reported . Patient notes no other symptoms.. Patient did receive the following treatments prior to arrival, none Related Data Home Medications Medication Instructions Recorded Confirmed acetaminophen 325 mg tablet 650 mg PO Q4H PRN PRN #0 tab 01/15/16 10/29/21 (Tylenol) cyanocobalamin (vitamin B-12) 1,000 mcg PO DAILY #90 tab-cap 02/10/16 10/29/21 1,000 mcg tablet cholecalciferol (vitamin D3) 25 1,000 unit PO BID cap 10/05/16 10/29/21 mcg (1,000 unit) capsule (Vitamin D3) aspirin 81 mg chewable tablet 81 mg PO DAILY #90 tab 07/19/18 10/29/21 (Aspirin Low-Strength) lidocaine 5 % topical patch 1 patch TP DAILY PRN each 07/26/19 10/29/21 blood sugar diagnostic (Blood #100 each 03/20/20 10/29/21 Glucose Test) lancets 28 gauge (FreeStyle #100 each 03/20/20 10/29/21 Lancets) nitroglycerin 0.4 mg sublingual 0.4 mg SUBLINGUAL Q5 MIN PRN X3 04/22/20 10/29/21 tablet (Nitrostat) PRN #20 tab blood sugar diagnostic (Blood #100 ea 10/02/20 10/29/21 Glucose Test) blood-glucose meter #1 ea 10/02/20 10/29/21 lancets #100 ea 10/02/20 10/29/21 losartan 50 mg tablet 50 mg PO BID #180 tab 11/13/20 10/29/21 omeprazole 20 mg tablet,delayed 20 mg PO .every other day #45 tab 11/14/20 10/29/21 release gabapentin 300 mg capsule See Rx Instructions PO .COMPLEX 04/23/21 10/29/21 cap nystatin 100,000 unit/gram topical 1 applic TP BID PRN #15 g 06/13/21 10/29/21 cream zoledronic acid 5 mg/100 mL in See Rx Instructions IV .once per 06/23/21 10/29/21 mannitol 5 %-water intravenous year #100 ml piggybck (Reclast) benzonatate 100 mg capsule 100 mg PO TID PRN #14 cap 07/07/21 10/29/21 carvedilol 3.125 mg tablet 3.125 mg PO BID #180 tab 07/30/21 10/29/21 carvedilol 6.25 mg tablet 6.25 mg PO BID #180 tab 07/30/21 10/29/21 lorazepam 0.5 mg tablet 0.5 mg PO DAILY PRN #28 tab 08/04/21 10/29/21 lamotrigine 100 mg tablet 100 mg PO BID #180 tab-cap 08/14/21 10/29/21 (Lamictal) atorvastatin 40 mg tablet 40 mg PO DAILY #90 tab 09/15/21 10/29/21 citalopram 20 mg tablet 20 mg PO QHS #90 tab 09/15/21 10/29/21 amlodipine 2.5 mg tablet See Rx Instructions PO DAILY #360 10/08/21 10/29/21 tab apixaban 5 mg tablet (Eliquis) 5 mg PO BID #180 tab 10/08/21 10/29/21 clotrimazole 1 % topical cream 1 applic TOPICAL BID 28 Days #15 g 10/08/21 10/29/21 cyclobenzaprine 10 mg tablet 10 mg PO TID PRN #10 tab 10/08/21 10/29/21 lidocaine 5 % topical patch 1 patch TOPICAL DAILY PRN #30 ea 10/08/21 10/29/21 Previous Rx's Medication Instructions Recorded acetaminophen 325 mg tablet 650 mg PO Q4H PRN PRN #0 tab 01/15/16 (Tylenol) aspirin 81 mg chewable tablet 81 mg PO DAILY #90 tab 07/19/18 (Aspirin Low-Strength) blood sugar diagnostic (Blood #100 each 03/20/20 Glucose Test) lancets 28 gauge (FreeStyle #100 each 03/20/20 Lancets) nitroglycerin 0.4 mg sublingual 0.4 mg SUBLINGUAL Q5 MIN PRN X3 04/22/20 tablet (Nitrostat) PRN #20 tab blood sugar diagnostic (Blood #100 ea 10/02/20 Glucose Test) blood-glucose meter #1 ea 10/02/20 lancets #100 ea 10/02/20 losartan 50 mg tablet 50 mg PO BID #180 tab 11/13/20 omeprazole 20 mg tablet,delayed 20 mg PO .every other day #45 tab 11/14/20 release nystatin 100,000 unit/gram topical 1 applic TP BID PRN #15 g 06/13/21 cream zoledronic acid 5 mg/100 mL in See Rx Instructions IV .once per 06/23/21 mannitol 5 %-water intravenous year #100 ml piggybck (Reclast) benzonatate 100 mg capsule 100 mg PO TID PRN #14 cap 07/07/21 carvedilol 3.125 mg tablet 3.125 mg PO BID #180 tab 07/30/21 carvedilol 6.25 mg tablet 6.25 mg PO BID #180 tab 07/30/21 lorazepam 0.5 mg tablet 0.5 mg PO DAILY PRN #28 tab 08/04/21 lamotrigine 100 mg tablet 100 mg PO BID #180 tab-cap 08/14/21 (Lamictal) atorvastatin 40 mg tablet 40 mg PO DAILY #90 tab 09/15/21 citalopram 20 mg tablet 20 mg PO QHS #90 tab 09/15/21 amlodipine 2.5 mg tablet See Rx Instructions PO DAILY #360 10/08/21 tab apixaban 5 mg tablet (Eliquis) 5 mg PO BID #180 tab 10/08/21 clotrimazole 1 % topical cream 1 applic TOPICAL BID 28 Days #15 g 10/08/21 cyclobenzaprine 10 mg tablet 10 mg PO TID PRN #10 tab 10/08/21 lidocaine 5 % topical patch 1 patch TOPICAL DAILY PRN #30 ea 10/08/21 Allergies Allergy/AdvReac Type Severity Reaction Status Date / Time nifedipine Allergy Mild Hives Verified 10/29/21 18:00 amiodarone AdvReac Severe tremor Verified 10/29/21 18:00 oxycodone AdvReac Severe heavy Verified 10/29/21 18:00 sedation amoxicillin AdvReac Intermediate sore Verified 10/29/21 18:00 burning mouth Anesthetics - Amide Type - AdvReac Intermediate anxious Verified 10/29/21 18:00 Select A [Anesthetics - Amide Type] diazepam AdvReac Intermediate Agitation Verified 10/29/21 18:00 indomethacin AdvReac Intermediate headache, Verified 10/29/21 18:00 flush metformin AdvReac Intermediate Diarrhea Verified 10/29/21 18:00 General Stated Complaint: Trauma ANASTACIA: 2 Review of Systems Constitutional Constitutional: Reports headache(s) and Denies weakness Eyes Eyes: Denies change in vision ENT Ears, Nose, Mouth, and Throat: Reports headache(s) and Reports neck pain Cardiovascular Cardiovascular: Denies chest pain and Denies dyspnea Respiratory Respiratory: Denies cough and Denies dyspnea Gastrointestinal Gastrointestinal: Denies abdominal pain, Denies nausea and Denies vomiting Musculoskeletal Musculoskeletal: Reports back pain (chronic), Reports neck pain, Denies numbness and Denies tingling Neurologic Neurologic: Reports headache(s), Denies numbness, Denies tingling and Denies weakness Hematologic/Lymphatic Hematologic/Lymphatic: Reports easy bleeding and Reports easy bruising PFSH All Active Problems (Updated 10/29/21 @ 19:29 by EARLE Viveros) Head injury (Acute) Fall (Acute) Neck pain (Acute) Subjective memory complaints (Acute) MoCA 25/30; executive difficulty Presence of permanent cardiac pacemaker (Acute) Dual lead Medtronic pacemaker 09/05/2015; Her presenting rhythm is atrial pacing and underlying rhythm is sinus Caregiver burden (Acute) Generalized anxiety disorder (Acute) Atrial fibrillation (Chronic) s/p ablation 02/2016 Numbness and tingling of both legs (Acute) 02/06/20 Peripheral Neuropathy Podiatry: Dr Robbins Abnormal [place]Acute) [place] [place] 1+/4+ mitral regurg; EF 56% Depression (Chronic) a. h/o ECT treatment x1 (per Liliana very effective) b. formerly followed by Chauncey Gracia NP c. On multiple medications d. h/o psychiatric hospitalizations for reported bipolar e. h/o suicide attempts Retinal dot hemorrhage of both eyes (Acute) 08/15/2019 Dr Aliza Eng Osteoporosis (Chronic) See 10/2018 CT T11 compression fracture 2016 DEXA osteopenia [id number]: Boniva x2, which she tolerated, thus switching to Reclast (better outcome data) ASCVD (arteriosclerotic cardiovascular disease) (Chronic) cardiac cath Essential tremor (Chronic 04/02/08) R > L, EVAL PRICE 2008; MOWCHUN [id number]; responds to low dose propranolol Hyperlipidemia (Chronic 08/17/11) Crestor switched to Atorvastatin per ins Generalized atherosclerosis (Chronic 08/17/11) H/O CABG 1993; Cath 11/2015: all three grafts open; EF 60%; JUANPABLO 02/2015 EF 55% Gouty arthropathy, unspecified (Chronic 08/17/11) Essential hypertension (Chronic 08/17/11) Diabetic neuropathy (Chronic 03/07/15) Dr Robbins DM type 2, controlled, with complication (Chronic) complications: neuropathy, cardiovascular disease Chronic nonalcoholic liver disease (Chronic 08/17/11) Chronic kidney disease, stage III (moderate) (Chronic 08/17/11) Coronary artery disease (Chronic) a. inferior MS 1984 b. MS with CABG 1992 Patient is doing well with no chest pain. 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) Apixaban for AF GERD (gastroesophageal reflux disease) (Chronic) Severe anxiety with panic (Chronic) L-T BZD Rx Fatty liver (Chronic) Medical History Chest pain Chronic atrial fibrillation (11/19/15) s/p Ablation 02/2016 Chronic fatigue syndrome Chronic pain Back; L-T Tramadol RX (which was discont 2018); h/o compression fractures Diarrhea [facility] [place]; Kefir & Psyllium husk help Fracture of rib of right side (08/26/15) Fracture of right shoulder (08/26/15) Frequent falls (04/05/17) Hematoma Mid back pain compression fx Primary osteoarthritis of right knee (08/24/16) Prolonged TN interval Sleeping difficulty (07/01/15) Improved on Mirtaz 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 declined ablation [place] [facility] [place] Patient's dual-chamber pacemaker is functioning normally with ample generator life remaining. She has had no further PAF episodes noted. Her presenting rhythm is atrial pacing and underlying rhythm is sinus bradycardia. No reprogramming needed. She does not use remote monitoring. Trigger finger, left middle finger Trigger finger, left ring finger Trigger finger, right ring finger Unexplained weight loss GI work-up NEG; Mirtaz helped Surgical History Ablation for A Fib (03/10/16) Catheter ablatioin for A Flutter and catheter ablatiion for A Fib; [facility] [place] David King cardiac catheterization (11/27/14) 3 vessel disease, occluded, Grafts: mammary artery and 2 venous grafts are all open. cardioversion (07/20/14) Dr Garcia, [facility] Extraction of cataract (11/11/15) L cataract Jayme R cataract-Dr Hutson H/O surgical procedure a. left cataract surgery b. Duane fundoplication c. carpal tunnel syndrome d. bilateral tubal ligation e. hysterectomy f. arthroscopy left knee 09/2011 g. s/p breast reduction History of hysterectomy Pacemaker (09/05/15) [facility] [place] [employer] DUAL CHAMBER Replacement of total knee joint (09/14/11) CELESTE LEFT TKA Trigger Finger release R 4th digit Family History Mother , perf ulcer at age 78. Hip fracture mother from complications of hip fracture Father , stroke at age 80. No problems noted. Sister No problems noted. Social History Smoking/Tobacco Use Status: Never Second Hand Exposure: No Smoking risk assessment performed?: Yes Alcohol Intake: never Drug use: Never Substance use type: does not use Adopted: No (raised by Aunt and Uncle) Caregiver/Support person: Yes (youngest daughter: Jacquelyn Chavira is healthcare agent [phone]) Foster care: No Household members: spouse Housing: house Number of Children: 4 Current gender identity: female What is your relationship status?: Panel score (0-1 are the most socially isolated patients): 1 What type of physical activity do you participate in: additional Details: gardening, playing with dog Shasta/Congregational: Shinto Seatbelt use: always Drive intox or ride w/intox food mobile driver: No Water heater temp set <120 deg: Yes Working smoke detector in home: Yes Fire extinguisher in home: Yes Carbon monox detector in home: Yes Firearms in home: Yes Do you feel safe at home: Yes Do you feel safe in your relationship?: Yes Additional Social history: Forrest[employer] Wang. History History 5 Para Hx # Term Pregnancies 4 Multiple births Hx # Pregnancies Ectopic pregnancies AB induced Hx Number of Living Children AB spontaneous Exam Const General: cooperative, healthy appearing, comfortable and no acute distress Orientation: alert, awake and oriented x3 HENMT Head: normal to inspection, no palpable skull fracture, normocephalic and atraumatic Head images: 1. Diffuse mild discomfort. Skin intact Ears: external ears normal General nose exam: external nose normal Face and sinus: normal facial exam Mouth: moist mucous membranes Throat: posterior oropharynx normal Eyes General: appearance normal, both eyes and all related structures Alignment and Position: alignment normal Periorbital: periorbital findings normal Eyelids: eyelids normal Conjunctivae: conjunctivae normal Sclera: sclerae normal Cornea: corneas normal Pupils: PERRL EOM: EOM intact bilaterally Direct ophthalmoscopy: normal light reflex Neck Neck: normal visual inspection, trachea midline, supple and tender (Diffuse posterior) Other: Hard c-collar in place Resp Effort & Inspection: normal respiratory effort and able to speak in complete sentences Auscultation: clear to auscultation bilaterally Cardio Rate: regular rate Rhythm: regular rhythm GI Palpation: soft and nontender Back/Spine/Pelvis Back: No back tenderness Skin General skin exam: no rashes or lesions noted Neuro General: patient alert, patient awake, patient oriented x3, moves all extremities and no focal motor deficits Cranial Nerves: CN's II-XI intact bilaterally Cognition: normal cognition Speech: speech normal Gait: normal gait Motor: muscle tone normal throughout, strength 5/5 throughout, no movement abnormalities noted and no fasciculations Sensory Exam: no sensory deficits noted Extrem General: normal to inspection, full ROM and capillary refill normal Psych Appearance: grossly normal Mental Status: mental status grossly normal Course Vital Signs Vital signs: Vital Signs Temperature 36.8 C 10/29/21 17:52 Pulse 62 10/29/21 17:52 Respiratory Rate 16 10/29/21 17:52 Blood Pressure 151/64 H 10/29/21 17:52 Pulse Oximetry 96 10/29/21 17:52 Temperature 36.8 C 10/29/21 17:52 Temperature Source Temporal Artery Scan 10/29/21 17:52 Pulse 62 10/29/21 17:52 Respiratory Rate 16 10/29/21 17:52 Respiratory Effort 10/29/21 17:52 Blood Pressure 151/64 H 10/29/21 17:52 Blood Pressure Position Sitting 10/29/21 17:52 Pulse Oximetry 96 10/29/21 17:52 Oxygen Delivery Method Room Air 10/29/21 17:52 Oxygen Flow Rate 0 10/29/21 17:52 Pain Level 6 10/29/21 17:52
--- NOTE | 2021-10-29 18:51 | DI.VRAD_ITS ---
PROCEDURE INFORMATION: Exam: CT Head Without Contrast Exam date and time: 10/29/2021 6:20 PM Age: 81 years old Clinical indication: Injury or trauma; Fall; Blunt trauma (contusions or hematomas); Consciousness not specified; Injury details: Anticoagulated TECHNIQUE: Imaging protocol: Computed tomography of the head without contrast. COMPARISON: 1. CT HEAD WO 08/20/2019 8:[address] HEAD CERVICAL SPINE WO 11/21/2018 3:48 PM FINDINGS: Brain: Prominence of cerebral sulci reflects diffuse cerebral atrophy. Poorly marginated hypodensities seen throughout the deep and periventricular white matter of both cerebral hemispheres are consistent with microvascular ischemic changes. Brainstem and cerebellum are unremarkable and there is no evidence of acute infarct or intracranial hemorrhage. Cerebral ventricles: Dilatation of the 3rd and lateral ventricles is commensurate with the degree of cerebral atrophy. Paranasal sinuses: Grossly clear throughout. Mastoid air cells: Grossly clear bilaterally. Bones/joints: Bony calvarium and skull base are intact and no acute fractures are detected. Soft tissues: Unremarkable. IMPRESSION: Diffuse atrophy and probable microvascular ischemic changes with no evidence of acute infarct, recent hemorrhage or hydrocephalus. No acute intracranial process is detected. PROCEDURE INFORMATION: Exam: CT Cervical Spine Without Contrast Exam date and time: 10/29/2021 6:20 PM Age: 81 years old Clinical indication: Injury or trauma; Fall; Blunt trauma (contusions or hematomas); Consciousness not specified; Injury details: Anticoagulated TECHNIQUE: Imaging protocol: Computed tomography images of the cervical spine without contrast. COMPARISON: 1. CT HEAD WO 08/20/2019 8:[address] HEAD CERVICAL SPINE WO 11/21/2018 3:48 PM FINDINGS: Bones/joints: There is arthrosis involving the anterior atlantodental interval with loss of joint space and marginal osteophyte formation and the odontoid process is grossly intact. There are minimal anterolistheses of C2 upon C3, C3 upon C4, C5 upon C6 and C7 upon T1. Probable ankylosis of the facet joints bilaterally at C2-C3 with no acute fractures detected involving the posterior elements of the cervical spine. Discs/Spinal canal/Neural foramina: Loss of disc space height with posterior osteocartilaginous ridging/disc extrusion is most significant at C3-C4, C4-C5 and C5-C6 resulting in canal stenoses and suspected mass-effect upon the ventral cord which could be better evaluated with MRI. Lungs: No pneumothorax or consolidation detected at the lung apices. Soft tissues: Unremarkable. IMPRESSION: Cervical spondylosis with central canal narrowing as above. No acute cervical fractures are detected. Dictated and Authenticated by: Brett Boone MD. Ordering:CLOTILDE Terrell MD
--- NOTE | 2021-10-29 19:20 | NUR.NOTE ---
Addendum entered by Sharon Matthew RN 10/29/21 19:21: Removed by Xander OG Original Note: Nursing Note: Cervical collar applied in triage. Collar removed by MARIO Soto after head/neck CT result.
[2021-10-29 19:39] VITALS: BP 138/86; PULSE 68; RESP 18; TEMP 36.8; O2SAT 99
== END 2021-10-29 19:41 | disposition home or self-care (01) ==
PROVIDERS: Emergency Provider Physician Assistant; PCP Nurse Practitioner Adult Health
DX: S09.8XXA Other specified injuries of head, initial encounter (principal); M54.2 Cervicalgia; W18.39XA Other fall on same level, initial encounter; Z79.01 Long term (current) use of anticoagulants
CPT/HCPCS: 99284; 70450; 72125; 99283

== ENCOUNTER 2021-11-05 03:36 | Outpatient (RCR) | payer MEDICARE, BC, SELFPAY ==
[2021-11-05] MEDS: Normal Saline Flush 10 ML SYR IVP (11:14)
[2021-11-05] MEDS: ZOLEDRONIC ACID/MANNITOL/WATER 5 MG/100 ML BTL 300 MG IVPB (11:14)
== END 2021-11-08 23:59 | disposition home or self-care (01) ==
LOC: INF 03:36
PROVIDERS: PCP Nurse Practitioner Adult Health; Visit Provider Nurse Practitioner Adult Health
DX: M81.0 Age-related osteoporosis without current pathological fracture (principal)
CPT/HCPCS: 96365; J3489

== ENCOUNTER 2021-11-21 14:31 | Emergency (ER) | payer MEDICARE, BC, SELFPAY ==
[2021-11-21] VITALS (57 sets, daily range): BP systolic 70–144; BP diastolic 34–75; PULSE 54–65; RESP 10–23; TEMP 36.5–36.6; O2SAT 90–97
--- NOTE | 2021-11-21 14:30 | RT.EKG_ITS ---
APPROVED REPORT Exam: Resting ECG Reason for Exam: DIZZINESS Patient Location: E HR:60 bpm ECG Measurements Heart Rate 60 AXIS OK 236 P [id number] QRSd 113 QRS 119 QT 408 T 154 QTc 408 Conclusion Atrial-paced complexes...other complexes also detected Prolonged OK interval...OK >220, V-rate 50- 90 Inferior infarct, old...Q >35mS, II III aVF Nonspecific T abnormalities, lateral leads...T <-0.10mV, I aVL V5 V6
--- OUTSIDE RECORDS SUMMARY | 2021-11-21 14:58 | XMS_ITS ---
:1940 Author Care Team Providers Name Role Phone JUANA MONTOYA Primary Care Provider [phone] Allergies Code Code System Name Reaction Severity Status Onset 7052 RxNorm Morphine Hallucinations Moderate to Severe Active ? Medications Name Status Start Date Stop Date [...] ? Excessive Daytime Sleepiness - Normal Night Sleep Active 11/14/2019 ? 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 Obstructive Sleep Apnea Syndrome Active ? ? Hypertensive Disorder Active ? ? Chronic Obstructive Lung Disease Active ? ? Procedures None recorded. Results Lab Results None recorded. Past Encounters None recorded. Social History Tobacco Smoking Status Former Smoker (1/4 pack per day) Not es: QUIT 2000 Vaccine List None recorded. Plan of Care Reminders Provider Appointments None recorded. ? ? Lab None recorded. ? ? Referral None recorded. ? ? Procedures None recorded. ? ? Surgeries None recorded. ? ? Imaging None recorded. ? ? Vitals 02/15/2020 12:30PM Office 30 Height Weight BMI Blood Pressure 157.48 cm 82.37 kg 33.2 kg/m2 144/50 mm[Hg] 12/12/2019 11:30AM Office 30 Height Weight BMI Blood Pressure 157.48 cm 84.5 kg 34.1 kg/m2 136/72 mm[Hg] 11/14/2019 09:30AM New Patient 47 Height Weight BMI 157.48 cm 81.65 kg 32.9 kg/m2
--- NOTE | 2021-11-21 15:00 | DI.CT_ITS ---
Exam(s) CT HEAD WO EXAM: CT HEAD WO CLINICAL HISTORY: fall, fatigue, head injury, on AC. TECHNIQUE: Imaging Protocol: Axial computed tomography images with coronal and sagittal reformatted images were created and reviewed COMPARISON: CT CT HEAD CERVICAL SPINE WO from 10/29/2021 FINDINGS: There are no skull fractures nor fluid in the visualized paranasal sinuses. There is no evidence of intracranial hemorrhage, mass effect, or shift of midline structures. There are no extra-axial fluid collections. The ventricles are not enlarged or shifted and there is no blo od within the ventricular system nor within the basal cisterns. Again noted is patchy bilateral periventricular hypodensity consistent with chronic small vessel dise ase. Calcification is again evident in the vertebral arteries at the skull base. IMPRESSION: No acute intracranial findings on this noninfused CT scan of the brain. Chronic small-vessel white m atter ischemic changes again noted, similar to the prior CT scan No skull fractures. No evidence of intracranial hemorrhage. Report called by myself to the ER. RADIATION DOSE DELIVERED: 719.95mGy.cm Total DLP DATA REPOSITORY: All CT scans at this facility are submitted to the National Radiology Data Registry (NRDR) Dose Index Registry (DIR) with the [employer] ([employer]). RADIATION OPTIMIZATION: All CT scans at this facility use at least one of these dose optimization te chniques: automated exposure control; mA and/or kV adjustment per patient size (includes targeted exa ms where dose is matched to clinical indication); or iterative reconstruction.
--- NOTE | 2021-11-21 15:00 | DI.RAD_ITS ---
Exam(s) XR RIBS LT PA CHEST 3V EXAM: XR RIBS LT PA CHEST 3V CLINICAL HISTORY: fall, left flank ecchymosis, hx of CAD. TECHNIQUE: 2D digital imaging was performed. COMPARISON: CR,XR XR CHEST 2V PA LATERAL from 08/20/2019 FINDINGS: Left rib cage: No obvious acute left rib fracture. No osseous lesions in the left rib cage. No Chest x-ray single-view: Sternotomy wires-mild cardiomegaly. Bipolar left subclavian pacemaker lead tips in right atrium and RV. Lungs are clear. No infiltrates nor pleural effusions. No pneumothorax. IMPRESSION: No obvious left rib fractures. No pneumothorax nor pleural effusion. Sternotomy. Pacemaker. No pulmonary edema DATA REPOSITORY: RADIATION DOSE DELIVERED:
[2021-11-21] MEDS: Normal Saline 1,000 ML 1000 ML IV (15:05)
--- NOTE | 2021-11-21 15:06 | W.ED.GENAD ---
Discharge Plan Disposition Patient Disposition: HOME Condition: Improving Discharge Details Clinical Impression: PEDRO (acute kidney injury), Acute dehydration, Urinary tract infection Primary Care Provider: Linn Paulino ED Provider: Hardeep George Home Meds and New Rx's Prescriptions: New cefpodoxime 100 mg tablet 100 mg PO BID 5 Days Qty: 10 0RF Rx Instructions: must administer with a meal/food No Action lidocaine 5 % adhesive patch,medicated 1 patch TP DAILY PRN Label Comments: 06/15/19-unable to verify meds, pt left drug list at home and does not know meds/doses. Rx Instructions: leave on most painful area for 12 hrs nitroglycerin [Nitrostat] 0.4 mg tablet, sublingual 0.4 mg Sublingual Q5 MIN PRN X3 PRN (Reason: chest pain) Qty: 20 1RF Label Comments: 06/15/19-unable to verify meds, pt left drug list at home and does not know meds/doses. Rx Instructions: Q5min, x3 max, PRN chest pressure (DME) blood-glucose meter Misc See Rx Instructions .MEDSUPPLY Qty: 1 0RF Rx Instructions: As directed to check blood glucose daily. No insulin. Dispense covered brand. (DME) Blood Glucose Test Strip See Rx Instructions .MEDSUPPLY Qty: 100 3RF Rx Instructions: As directed to check blood glucose daily. No insulin. Dispense covered brand. (DME) lancets Misc See Rx Instructions .MEDSUPPLY Qty: 100 3RF Rx Instructions: As directed to check blood glucose daily. No insulin. Dispense covered brand. omeprazole 20 mg tablet,delayed release (DR/EC) 20 mg PO .every other day Qty: 45 3RF Rx Instructions: To take every other day for atypical chest pain/heartburn zoledronic [id number] [Reclast] 5 mg/100 mL piggyback See Rx Instructions IV .once per year Qty: 100 0RF Rx Instructions: 100mL IV .once per year; administer over at least 15 mins lorazepam 0.5 mg tablet 0.5 mg PO DAILY PRN (Reason: acute anxiety) Qty: 28 2RF Rx Instructions: For chronic anxiety attacks amlodipine 2.5 mg tablet See Rx Instructions PO DAILY Qty: 360 3RF Rx Instructions: 2.5mg AM, 5mg PM PO daily; High blood pressure or as directed (dosed changed 10/09/2020) Eliquis 5 mg tablet 5 mg PO BID Qty: 180 3RF Label Comments: 06/15/19-unable to verify meds, pt left drug list at home and does not know meds/doses. Rx Instructions: anticoagulation for atrial fibrillation lidocaine 5 % adhesive patch,medicated 1 patch topical DAILY PRN (Reason: compression fracture pain) Qty: 30 0RF Rx Instructions: leave on most painful area for 12 hrs, then remove for compression fracture pain; may cut to size cyclobenzaprine 10 mg tablet 10 mg PO TID PRN (Reason: muscle spasm) Qty: 30 0RF gabapentin 300 mg capsule See Rx Instructions PO .COMPLEX Rx Instructions: Take 1 cap in AM, 1 cap in the afternoon, 2 caps HS for neuropathic pain OR 2 caps BID; dose increase 12/16/20 cyanocobalamin (vitamin B-12) 1,000 MCG tablet 1,000 mcg PO DAILY Qty: 90 Label Comments: 06/15/19-unable to verify meds, pt left drug list at home and does not know meds/doses. cholecalciferol (vitamin D3) [Vitamin D3] 1,000 UNIT capsule 1,000 unit PO BID Label Comments: 06/15/19-unable to verify meds, pt left drug list at home and does not know meds/doses. aspirin [Aspirin Low-Strength] 81 mg tablet,chewable 81 mg PO DAILY Qty: 90 3RF Label Comments: 06/15/19-unable to verify meds, pt left drug list at home and does not know meds/doses. (DME) lancets [FreeStyle Lancets] 28 gauge misc 1 ea Miscellaneous as directed Qty: 100 3RF Rx Instructions: Free style lancet to monitor daily for E11.9 for goal A1C <7% (DME) Blood Glucose Test Strip See Rx Instructions .ROUTE .MEDSUPPLY Qty: 100 3RF Rx Instructions: As directed to check daily blood glucose. No insulin. Dispense covered brand. Dx: E11.9 to maintain HbA1c less than 7%. losartan 50 mg tablet 50 mg PO BID Qty: 180 3RF Rx Instructions: Blood pressure nystatin 100,000 unit/gram cream 1 applic TP BID PRN (Reason: robin rash) Qty: 15 0RF Rx Instructions: Apply to affected area on abdomen carvedilol 3.125 mg tablet 3.125 mg PO BID Qty: 180 3RF Rx Instructions: To take with 6.25mg tab for total dose of 9.375 BID for AFib and HTN carvedilol 6.25 mg tablet 6.25 mg PO BID Qty: 180 3RF Rx Instructions: To take with 3.125mg tab for dose of 9.375 BID for AFib and HTN lamotrigine [Lamictal] 100 mg tablet 100 mg PO BID Qty: 180 3RF Label Comments: 06/15/19-unable to verify meds, pt left drug list at home and does not know meds/doses. Rx Instructions: atorvastatin 40 mg tablet 40 mg PO DAILY Qty: 90 3RF Label Comments: 06/15/19-unable to verify meds, pt left drug list at home and does not know meds/doses. citalopram 20 mg tablet 20 mg PO QHS Qty: 90 3RF Rx Instructions: Depression & anxiety acetaminophen [Tylenol] 325 MG tablet 650 mg PO Q4H PRN PRNQty: 0 0RF Discharge Instructions Instructions: Dehydration (ED), Urinary Tract Infection in Women (ED) Additional Instructions: Please be seen by your primary care doctor and have repeat lab work done in the coming weeks to ensure that your kidney function is not getting worse. Please stay hydrated. Take medications as prescribed. Please return the emergency department for any worsening symptoms. Medical Decision Making 81-year-old female presents after syncopal episode witnessed, was caught in the arm her , denies any trauma during this event, prodrome of feeling fatigued that she has been feeling fatigued over the past several days, dry cough, decreased p.o. intake, recent fall 1 to 2 weeks ago which she sustained head injury and left flank injury, evidence of old ecchymosis to left anterior lateral chest wall, no respiratory symptoms at this time besides cough, no respiratory distress hypoxia, no peripheral edema, abdomen soft nontender nondistended, pelvis stable moving all extremities 5 of 5 strength, cranial nerves intact, normal speech, alert and oriented, relative hypotension on arrival slightly pale conjunctiva and dry oral mucosa concerning for dehydration versus possible anemia versus must consider traumatic event such as intracranial hemorrhage versus rib fracture/contusion versus less likely pneumothorax versus must consider pneumonia such as viral pneumonia COVID influenza or bacterial pneumonia versus unlikely PE versus must consider ACS or arrhythmia or electrolyte disturbance. Screening labs imaging fluids close reassessment patient endorses she does not want to stay in the hospital however given age and risk factors will discuss disposition pending results. 20: 00 patient resting comfortably color is greatly improved, blood pressure greatly improved with fluids, evidence of mild UTI, likely dehydration leading to PEDRO, repeat basic metabolic panel after fluids showing improving creatinine. Patient is making urine. Supplemented potassium p.o. Will treat with p.o. antibiotics for UTI. Patient adamant that she does not want to stay in the hospital. Given home care instructions and strict return precautions. HPI General Date/Time Provider Initiated Documentation: 11/21/21 14:54. HPI Narrative: 81-year-old female history of coronary disease status post bypass, stenting, on Eliquis and aspirin, presents with generalized fatigue dry cough for the past several days decreased appetite since syncopal episode, no chest pain, no shortness of breath, denies leg pain or swelling, denies history of thromboembolic phenomenon, did have a fall 2 weeks ago in which she hit her head unknown LOC, also sustained trauma to her left flank with developed ecchymosis, lives at home with , ambulates unassisted, endorses recent negative COVID test, feels as if her mouth is dry. Patient Dors chronic loose stool, denies dark tarry stools Related Data Home Medications Medication Instructions Recorded Confirmed acetaminophen 325 mg tablet 650 mg PO Q4H PRN PRN #0 tabs 01/15/16 11/21/21 (Tylenol) cyanocobalamin (vitamin B-12) 1,000 mcg PO DAILY #90 tab-caps 02/10/16 11/21/21 1,000 mcg tablet cholecalciferol (vitamin D3) 25 1,000 unit PO BID 10/05/16 11/21/21 mcg (1,000 unit) capsule (Vitamin D3) aspirin 81 mg chewable tablet 81 mg PO DAILY #90 tabs 07/19/18 11/21/21 (Aspirin Low-Strength) lidocaine 5 % topical patch 1 patch topical DAILY PRN 07/26/19 11/21/21 blood sugar diagnostic (Blood #100 ea 03/20/20 11/21/21 Glucose Test strips) lancets 28 gauge (FreeStyle #100 ea 03/20/20 11/21/21 Lancets) nitroglycerin 0.4 mg sublingual 0.4 mg sublingual Q5 MIN PRN X3 04/22/20 11/21/21 tablet (Nitrostat) PRN chest pain #20 tabs blood sugar diagnostic (Blood #100 ea 10/02/20 11/21/21 Glucose Test strips) blood-glucose meter #1 ea 10/02/20 11/21/21 lancets #100 ea 10/02/20 11/21/21 losartan 50 mg tablet 50 mg PO BID #180 tabs 11/13/20 11/21/21 omeprazole 20 mg tablet,delayed 20 mg PO .every other day #45 tabs 11/14/20 11/21/21 release gabapentin 300 mg capsule See Rx Instructions PO .COMPLEX 04/23/21 11/21/21 nystatin 100,000 unit/gram topical 1 applic topical BID PRN robin 06/13/21 11/21/21 cream rash #15 grams zoledronic acid 5 mg/100 mL in See Rx Instructions IV .once per 06/23/21 11/21/21 mannitol 5 %-water intravenous year #100 mL piggybck (Reclast) carvedilol 3.125 mg tablet 3.125 mg PO BID #180 tabs 07/30/21 11/21/21 carvedilol 6.25 mg tablet 6.25 mg PO BID #180 tabs 07/30/21 11/21/21 lorazepam 0.5 mg tablet 0.5 mg PO DAILY PRN acute anxiety 08/04/21 11/21/21 #28 tabs lamotrigine 100 mg tablet 100 mg PO BID #180 tab-caps 08/14/21 11/21/21 (Lamictal) atorvastatin 40 mg tablet 40 mg PO DAILY #90 tabs 09/15/21 11/21/21 citalopram 20 mg tablet 20 mg PO QHS #90 tabs 09/15/21 11/21/21 amlodipine 2.5 mg tablet See Rx Instructions PO DAILY #360 10/08/21 11/21/21 tabs apixaban 5 mg tablet (Eliquis) 5 mg PO BID #180 tabs 10/08/21 11/21/21 lidocaine 5 % topical patch 1 patch topical DAILY PRN 10/08/21 11/21/21 compression fracture pain #30 ea cyclobenzaprine 10 mg tablet 10 mg PO TID PRN muscle spasm #30 11/07/21 11/21/21 tabs cefpodoxime 100 mg tablet 100 mg PO BID 5 days #10 tabs 11/21/21 Previous Rx's Medication Instructions Recorded acetaminophen 325 mg tablet 650 mg PO Q4H PRN PRN #0 tabs 01/15/16 (Tylenol) aspirin 81 mg chewable tablet 81 mg PO DAILY #90 tabs 07/19/18 (Aspirin Low-Strength) blood sugar diagnostic (Blood #100 ea 03/20/20 Glucose Test strips) lancets 28 gauge (FreeStyle #100 ea 03/20/20 Lancets) nitroglycerin 0.4 mg sublingual 0.4 mg sublingual Q5 MIN PRN X3 04/22/20 tablet (Nitrostat) PRN chest pain #20 tabs blood sugar diagnostic (Blood #100 ea 10/02/20 Glucose Test strips) blood-glucose meter #1 ea 10/02/20 lancets #100 ea 10/02/20 losartan 50 mg tablet 50 mg PO BID #180 tabs 11/13/20 omeprazole 20 mg tablet,delayed 20 mg PO .every other day #45 tabs 11/14/20 release nystatin 100,000 unit/gram topical 1 applic topical BID PRN robin 06/13/21 cream rash #15 grams zoledronic acid 5 mg/100 mL in See Rx Instructions IV .once per 06/23/21 mannitol 5 %-water intravenous year #100 mL piggybck (Reclast) carvedilol 3.125 mg tablet 3.125 mg PO BID #180 tabs 07/30/21 carvedilol 6.25 mg tablet 6.25 mg PO BID #180 tabs 07/30/21 lorazepam 0.5 mg tablet 0.5 mg PO DAILY PRN acute anxiety 08/04/21 #28 tabs lamotrigine 100 mg tablet 100 mg PO BID #180 tab-caps 08/14/21 (Lamictal) atorvastatin 40 mg tablet 40 mg PO DAILY #90 tabs 09/15/21 citalopram 20 mg tablet 20 mg PO QHS #90 tabs 09/15/21 amlodipine 2.5 mg tablet See Rx Instructions PO DAILY #360 10/08/21 tabs apixaban 5 mg tablet (Eliquis) 5 mg PO BID #180 tabs 10/08/21 lidocaine 5 % topical patch 1 patch topical DAILY PRN 10/08/21 compression fracture pain #30 ea cyclobenzaprine 10 mg tablet 10 mg PO TID PRN muscle spasm #30 11/07/21 tabs cefpodoxime 100 mg tablet 100 mg PO BID 5 days #10 tabs 11/21/21 Allergies Allergy/AdvReac Type Severity Reaction Status Date / Time nifedipine Allergy Mild Hives Verified 11/07/21 15:01 amiodarone AdvReac Severe tremor Verified 11/07/21 15:01 oxycodone AdvReac Severe heavy Verified 11/07/21 15:01 sedation amoxicillin AdvReac Intermediate sore Verified 11/07/21 15:01 burning mouth Anesthetics - Amide Type - AdvReac Intermediate anxious Verified 11/07/21 15:01 Select A [Anesthetics - Amide Type] diazepam AdvReac Intermediate Agitation Verified 11/07/21 15:01 indomethacin AdvReac Intermediate headache, Verified 11/07/21 15:01 flush metformin AdvReac Intermediate Diarrhea Verified 11/07/21 15:01 General Stated Complaint: Dizzy/Sync ANASTACIA: 2 Review of Systems Narrative: Review of Systems Constitutional: Fatigue Eyes: negative ENT: negative Cardiovascular: Syncope Respiratory: negative Gastrointestinal: negative : negative Musculoskeletal: negative Skin: negative Neurologic: negative Psych: negative PFSH All Active Problems (Updated 11/21/21 @ 20:03 by Hardeep George MD) PEDRO (acute kidney injury) (Acute) Acute dehydration (Acute) Urinary tract infection (Acute) Atherosclerosis of right carotid artery (Acute) Subjective memory complaints (Acute) MoCA 25/30; executive difficulty Presence of permanent cardiac pacemaker (Acute) Dual lead Medtronic pacemaker 09/05/2015; Her presenting rhythm is atrial pacing and underlying rhythm is sinus Caregiver burden (Acute) Generalized anxiety disorder (Acute) Atrial fibrillation (Chronic) s/p ablation 02/2016 Numbness and tingling of both legs (Acute) 02/06/20 Peripheral Neuropathy Podiatry: Dr Robbins Abnormal echocardiogram (Acute) 05/28/2018 ([facility]): 1+/4+ mitral regurg; EF 56% Depression (Chronic) a. h/o ECT treatment x1 (per Liliana very effective) b. formerly followed by Chauncey Gracia NP c. On multiple medications d. h/o psychiatric hospitalizations for reported bipolar e. h/o suicide attempts Retinal dot hemorrhage of both eyes (Acute) 08/15/2019 Dr Aliza Eng Osteoporosis (Chronic) See 10/2018 CT T11 compression fracture 2016 DEXA osteopenia [id number]: Boniva x2, which she tolerated, thus switching to Reclast (better outcome data) ASCVD (arteriosclerotic cardiovascular disease) (Chronic) cardiac cath Essential tremor (Chronic 04/02/08) R > L, EVAL UMASHANKAR 2008; MOWCHUN [id number]; responds to low dose propranolol Hyperlipidemia (Chronic 08/17/11) Crestor switched to Atorvastatin per ins Generalized atherosclerosis (Chronic 08/17/11) H/O CABG 1993; Cath 11/2015: all three grafts open; EF 60%; JUANPABLO 02/2015 EF 55% Gouty arthropathy, unspecified (Chronic 08/17/11) Essential hypertension (Chronic 08/17/11) Diabetic neuropathy (Chronic 03/07/15) Dr Robbins DM type 2, controlled, with complication (Chronic) complications: neuropathy, cardiovascular disease Chronic nonalcoholic liver disease (Chronic 08/17/11) Chronic kidney disease, stage III (moderate) (Chronic 08/17/11) Coronary artery disease (Chronic) a. inferior HI 1984 b. HI with CABG 1992 Patient is doing well with no chest pain. Continue on current medications. senior care current use of 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 (Chronic) Apixaban for AF GERD (gastroesophageal reflux disease) (Chronic) Severe anxiety with panic (Chronic) L-T BZD Rx Fatty liver (Chronic) Medical History Chest pain Chronic atrial fibrillation (11/19/15) s/p Ablation 02/2016 Chronic fatigue syndrome Chronic pain Back; L-T Tramadol RX (which was discont 2018); h/o compression fractures Diarrhea [facility] GI 2019; Kefir & Psyllium husk help Fracture of rib of right side (08/26/15) Fracture of right shoulder (08/26/15) Frequent falls (04/05/17) Hematoma Mid back pain compression fx Primary osteoarthritis of right knee (08/24/16) Prolonged ND interval Sleeping difficulty (07/01/15) Improved on Mirtaz 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 declined ablation at [facility] Patient's dual-chamber pacemaker is functioning normally with ample generator life remaining. She has had no further PAF episodes noted. Her presenting rhythm is atrial pacing and underlying rhythm is sinus bradycardia. No reprogramming needed. She does not use remote monitoring. Trigger finger, left middle finger Trigger finger, left ring finger Trigger finger, right ring finger Unexplained weight loss GI work-up NEG; Nellyz helped Surgical History Ablation for A Fib (03/10/16) Catheter ablatioin for A Flutter and catheter ablatiion for A Fib; [facility] Dr David King cardiac catheterization (11/27/14) 3 vessel disease, occluded, Grafts: mammary artery and 2 venous grafts are all open. cardioversion (07/20/14) Dr Garcia, [facility] Extraction of cataract (11/11/15) L cataract Jayme R cataract-Dr Hutson H/O surgical procedure a. left cataract surgery b. Duane fundoplication c. carpal tunnel syndrome d. bilateral tubal ligation e. hysterectomy f. arthroscopy left knee 09/2011 g. s/p breast reduction History of hysterectomy Pacemaker (09/05/15) [facility], MEDTR[employer]IC DUAL CHAMBER Replacement of total knee joint (09/14/11) CELESTE LEFT TKA Trigger Finger release R 4th digit Family History Mother , perf ulcer at age 78. Hip fracture mother from complications of hip fracture Father , stroke at age 80. No problems noted. Sister No problems noted. Social History Smoking/Tobacco Use Status: Never Second Hand Exposure: No Smoking risk assessment performed?: Yes Alcohol Intake: never Drug use: Never Substance use type: does not use Adopted: No (raised by Aunt and Uncle) Caregiver/Support person: Yes (youngest daughter: Jacquelyn Chavira is healthcare agent ph:[phone]) Foster care: No Household members: spouse Housing: house Number of Children: 4 Current gender identity: female What is your relationship status?: Panel score (0-1 are the most socially isolated patients): 1 What type of physical activity do you participate in: additional Details: gardening, playing with dog Shasta/Baptist: Buddhism Seatbelt use: always Drive intox or ride w/intox fire truck driver: No Water heater temp set <120 deg: Yes Working smoke detector in home: Yes Fire extinguisher in home: Yes Carbon monox detector in home: Yes Firearms in home: Yes Do you feel safe at home: Yes Do you feel safe in your relationship?: Yes Additional Social history: Salma Wang. History History 5 Para Hx # Term Pregnancies 4 Multiple births Hx # Pregnancies Ectopic pregnancies AB induced Hx Number of Living Children AB spontaneous Exam Narrative Exam Narrative: Physical Examination General: alert, awake, cooperative, resting comfortably, no acute distress HEENT: normocephalic, atraumatic; PERRL, EOM intact, slight pallor to conjunctiva l; no nasal discharge; slight drying of oral mucosa Neck: supple, trachea midline; full ROM Chest: Patient does have old appearing ecchymosis to left flank Respiratory: normal respiratory effort, speaking in full sentences, clear to auscultation, no wheezing, rales or rhonchi Cardiac: regular rate, regular rhythm, S1S2 intact, no murmurs rubs or gallops GI: abdomen soft, non-tender, non-distended; no palpable mass or hepatosplenomegaly Back: No midline spinal tenderness Skin: Ecchymosis to left flank anterior laterally along rib Neuro: AAOx3, normal speech, moving all extremities, 5 out of 5 strength upper and lower extremities, normal speech, cranial nerves II through XII intact Extremities: Moving all extremities, no signs of trauma, no peripheral edema Psych: Appropriate mood and affect Course Vital Signs Vital signs: Vital Signs Temperature 36.5 C 11/21/21 14:40 Pulse 61 11/21/21 14:40 Respiratory Rate 17 11/21/21 14:40 Blood Pressure 80/46 L 11/21/21 14:40 Pulse Oximetry 95 11/21/21 14:40 Temperature 36.5 C 11/21/21 14:40 Temperature Source Skin 11/21/21 14:40 Pulse 61 11/21/21 14:40 Respiratory Rate 12 11/21/21 14:54 Respiratory Effort 11/21/21 14:54 Respiratory Depth Normal 11/21/21 14:54 Respiratory Pattern Normal 11/21/21 14:54 Blood Pressure 80/46 L 11/21/21 14:40 Blood Pressure Position Supine 11/21/21 14:40 Pulse Oximetry 95 11/21/21 14:40 Oxygen Delivery Method Room Air 11/21/21 14:40 Oxygen Flow Rate 0 11/21/21 14:40 Pain Level 8 11/21/21 14:40
[2021-11-21 15:21] LABS: HCT 36.3 % (36.0-46.0); HGB 12.3 g/dL (11.2-15.7); MCH 32.5 pg (27.0-33.0); MCHC 33.9 % (32.0-36.0); MCV 96 fL (80-95); MPV 9.5 fL (8.0-11.0); Platelet Count 135 10^3/uL (130-400); RBC 3.79 10^6/uL (3.93-5.22); RDW 12.8 % (11.7-14.6); RDW-SD 45.5 fL; WBC 6.99 10^3/uL (4.4-10.8)
[2021-11-21 15:37] LABS: INR 1.1 (0.9-1.1); PTT Activated 26.6 sec (21.0-27.5); Prothrombin Time 10.9 sec (9.3-11.0)
[2021-11-21 15:41] LABS: Absolute Eosinophil Count 0.07 10^3/uL (0.0-0.7); Absolute Lymphocyte Count 2.03 10^3/uL (1.2-3.4); Absolute Monocyte Count 0.63 10^3/uL (0.1-0.8); Absolute Neutrophil Count 4.26 10^3/uL (1.2-6.7); Bands % 2
[2021-11-21 15:42] LABS: Diff Comment Manual Differential; RBC Morphology Normal
[2021-11-21 15:44] LABS: ALT 19 U/L (14-59); AST 21 U/L (15-37); Albumin 3.8 g/dL (3.4-5.0); Alkaline Phosphatase 59 U/L (46-116); Anion Gap 12.3 mmol/L (3-11); BUN 43 mg/dL (7-18); Bilirubin, Total 0.6 mg/dL (0.2-1.0); CO2 27.7 mmol/L (21.0-32.0); CREATININE 2.4 mg/dL (0.55-1.02); Chloride 98 mmol/L (98-107); Estimated GFR 19.47 (mL/min/1.73m2); Glucose 164 mg/dL (74-106); Magnesium 2.3 mg/dL (1.8-2.4); NT-proBNP 473 pg/mL (<300); Sodium 138 mmol/L (136-145); TSH (W/Ref FT4) 0.73 uIU/mL (0.36-3.74); Total Protein 7.9 g/dL (6.4-8.2); Troponin I < 50 ng/L (<or=60)
[2021-11-21 15:56] LABS: COVID-19 PCR Negative (Negative); Influenza A PCR Negative (Negative); Influenza B PCR Negative (Negative); RSV PCR Negative (Negative)
[2021-11-21] MEDS: Normal Saline 500 ML 1000 ML IV (17:46)
[2021-11-21 18:54] LABS: Bilirubin Negative (Negative); Blood Negative (Negative); Clarity Clear (Clear); Glucose Negative (Negative); Ketones Negative (Negative); Leukocyte Esterase Small (Negative); Nitrite Negative (Negative); Urobilinogen 0.2 EU/dL (Up TO 0.2); pH 5.5 (5-8)
[2021-11-21 18:55] LABS: Anion Gap 8.9 mmol/L (3-11); BUN 41 mg/dL (7-18); CO2 27.1 mmol/L (21.0-32.0); Calcium 8.1 mg/dL (8.5-10.1); Chloride 103 mmol/L (98-107); Estimated GFR 24.03 (mL/min/1.73m2); Glucose 112 mg/dL (74-106); Sodium 139 mmol/L (136-145)
[2021-11-21 18:57] LABS: Potassium 2.8 mmol/L (3.5-5.1)
[2021-11-21 19:01] LABS: Bacteria Few HPF (Negative); Epithelial Cells Moderate HPF (Negative); RBC 0-2 HPF (0-2)
[2021-11-21 19:02] LABS: Casts Negative LPF (Negative); Crystals Negative HPF (Negative); Mucus Negative (Negative); Other Cells Few Renal (Negative)
[2021-11-21 19:09] LABS: Troponin I < 50 ng/L (<or=60)
[2021-11-21] MEDS: Potassium Chloride 20 MEQ TABCR PO (20:09)
[2021-11-21] MEDS: Cefpodoxime 200 MG TAB PO (20:09)
[2021-11-21 22:59] LABS: C & S Indicated? No/Sq. Contamination
== END 2021-11-21 20:42 | disposition home or self-care (01) ==
PROVIDERS: Emergency Provider Emergency Medicine; PCP Nurse Practitioner Adult Health
DX: N17.9 Acute kidney failure, unspecified (principal); E86.0 Dehydration; N39.0 Urinary tract infection, site not specified; R53.83 Other fatigue; S09.8XXA Other specified injuries of head, initial encounter; I25.10 Atherosclerotic heart disease of native coronary artery without angina pectoris; S30.1XXA Contusion of abdominal wall, initial encounter; W18.39XA Other fall on same level, initial encounter
CPT/HCPCS: 36415; 71101; 80048; 80053; 87637; 93005; 96360; 96361; 99284; 99285; 70450; 81003; 81015; 83735; 83880; 84443; 84484; 85025; 85610; 85730; 93010

== ENCOUNTER 2021-11-26 14:38 | Outpatient (REF) | payer MEDICARE, BC, SELFPAY ==
[2021-11-26 15:59] LABS: Anion Gap 10.7 mmol/L (3-11); BUN 17 mg/dL (7-18); CO2 25.3 mmol/L (21.0-32.0); CREATININE 1.3 mg/dL (0.55-1.02); Calcium 8.5 mg/dL (8.5-10.1); Chloride 102 mmol/L (98-107); Estimated GFR 39.51 (mL/min/1.73m2); Glucose 238 mg/dL (74-106); Potassium 3.2 mmol/L (3.5-5.1); Sodium 138 mmol/L (136-145)
== END 2021-11-26 14:39 | disposition home or self-care (01) ==
LOC: LBN 14:38
PROVIDERS: PCP Nurse Practitioner Adult Health; Referring Provider Nurse Practitioner Adult Health; Visit Provider Nurse Practitioner Adult Health
DX: E86.0 Dehydration (principal); E87.6 Hypokalemia; N17.9 Acute kidney failure, unspecified; R05.8 Other specified cough
CPT/HCPCS: 80048

== ENCOUNTER 2021-12-09 15:33 | Outpatient (REF) | payer MEDICARE, BC, SELFPAY | END 2021-12-09 15:34 | disposition home or self-care (01) | LOC: LBN 15:33 | PROVIDERS: PCP Nurse Practitioner Adult Health; Visit Provider Internal Medicine | DX: R30.0 Dysuria (principal) | CPT/HCPCS: 87086 ==

== ENCOUNTER → 2022-02-02 02:28 | Outpatient (CLI) | payer MEDICARE, BC, SELFPAY ==
--- NOTE | 2022-02-02 11:45 | DI.US_ITS ---
Exam(s) US CAROTID EXAM: US CAROTID CLINICAL HISTORY: atherosclerosis rt carotid artery,i65.21,stenosis,f/u head ct. TECHNIQUE: Ultrasound carotids performed using grayscale, color-flow, and spectral Doppler imaging. COMPARISON: US US ECHOCARDIOGRAM from 10/06/2021 FINDINGS: CAROTID ARTERIES: There is a moderate amount of both calcified and noncalcified plaque evident at bot h carotid bulbs and proximal internal carotid arteries mildly elevated velocities in the proximal rig ht ICA and mid left ICA in the neck, indicating approximately 50-69 percent stenosis bilaterally. VERTEBRAL ARTERIES: Antegrade flow demonstrated bilaterally.. Measurements: R Bulb: 91.3cm/s PS / 25.7cm/s ED R CCA: 79.1cm/s PS / 21.9cm/s ED R ECA: 124.8cm/s PS / 16.5cm/s ED R ICA Prox: 123.95cm/s PS /38.85cm/s ED R ICA Mid: 77.7cm/s PS / 25.6cm/s ED R ICA Distal: 66.9cm/s PS /24cm/s ED R Vert: 52.1cm/s PS / 13.2cm/s ED R SVR: 1.59 R DVR: 1.7 L Bulb: 81cm/s PS /23.1cm/s ED L CCA: 106.6cm/s PS / 27.3cm/s ED L ECA: PS / ED L ICA Prox:106.55cm/s PS / 33.1cm/s ED L ICA Mid: 124.8cm/sPS / 40.5cm/s ED L ICA Distal: 111.6cm/s PS / 38cm/s ED L Vert: 38cm/s PS / 18.2cm/s ED L SVR: 1.17 L DVR: 1.48 IMPRESSION: 1. Both calcified and noncalcified plaque in both carotid arteries in the neck. Estimated at 50-69 p ercent stenosis bilaterally. 2. Both vertebral arteries are patent in the neck and both vertebral arteries demonstrate antegrade f low in the neck. Criteria for Carotid Stenosis: Normal: ICA PSV <125 cm/s no plaque or intimal thickening is visible. <50% stenosis: ICA PSV <125 cm/s and plaque or intimal thickening is visible. 50-69% stenosis: ICA PSV is 125-250 cm/s and plaque is visible. >70% stenosis to near occlusion: ICA PSV >250 cm/s with visible plaque and luminal narrowing. DATA REPOSITORY:
== END ==
PROVIDERS: PCP Nurse Practitioner Adult Health; Visit Provider Nurse Practitioner Adult Health
DX: I65.23 Occlusion and stenosis of bilateral carotid arteries (principal)
CPT/HCPCS: 93880

== ENCOUNTER 2022-03-25 17:04 | Emergency (ER) | payer MEDICARE, BC, SELFPAY ==
[2022-03-25 17:07] VITALS: BP 168/79; PULSE 66; RESP 18; TEMP 36.3; O2SAT 96
--- NOTE | 2022-03-25 17:30 | DI.CT_ITS ---
Exam(s) CT HEAD FACIAL WO EXAM: CT HEAD FACIAL WO CLINICAL HISTORY: Fall, Nasal injury, on eliquis. TECHNIQUE: Imaging Protocol: Axial computed tomography images with coronal and sagittal reformatted images were created and reviewed COMPARISON: CT CT HEAD WO from 11/21/2021 FINDINGS: The examination is limited due to patient motion artifact. CT Head: Ventricles and Extra axial spaces: Normal in size and morphology for the patient's age. Hemorrhage: None. Cerebral parenchyma: There is no acute territorial infarct. There are areas of decreased attenuation in the white matter most consistent with small vessel ischemic disease. Midline shift: None. Brainstem/Cerebellum: Normal. Calvarium: Normal. Visualized Paranasal sinuses/Mastoids: Clear. Soft Tissues: Unremarkable. CT Face: Facial Bones: No definite acute fracture is noted in facial bones. Deformity of the nasal bones whic h is unchanged compared to the prior examination. Sinuses and Mastoids: Unremarkable. Globes, extraocular muscles, optic nerves and retrobulbar fat: Normal. Upper aerodigestive tract: Normal. Mandible and bilateral temporomandibular joints: Normal. Soft tissues: Mild soft tissue swelling about the nose. IMPRESSION: 1. No acute intracranial process. 2. No definite acute facial fracture. 3. Soft tissue swelling about the nose. Unchanged deformity of the nasal bones consistent with old f racture. RADIATION DOSE DELIVERED: 1,425.42mGy.cm Total DLP DATA REPOSITORY: All CT scans at this facility are submitted to the National Radiology Data Registry (NRDR) Dose Index Registry (DIR) with the [employer] (ACR). RADIATION OPTIMIZATION: All CT scans at this facility use at least one of these dose optimization te chniques: automated exposure control; mA and/or kV adjustment per patient size (includes targeted exa ms where dose is matched to clinical indication); or iterative reconstruction.
--- NOTE | 2022-03-25 17:30 | DI.RAD_ITS ---
Exam(s) XR FEMUR RT EXAM: XR FEMUR RT CLINICAL HISTORY: Fall, Swelling. TECHNIQUE: 2D digital imaging was performed of the right femur. Four images were obtained. AP and l ateral views were obtained. COMPARISON: No exams were available for comparison FINDINGS: BONES: No acute fracture is present. No bony destructive lesion is seen. There are mild degenerative changes seen at the right hip and knee. The bones are osteopenic. SOFT TISSUE: Vascular calcifications are present. IMPRESSION: No acute fracture or dislocation is seen. DATA REPOSITORY: RADIATION DOSE DELIVERED:
--- NOTE | 2022-03-25 17:30 | DI.RAD_ITS ---
Exam(s) XR KNEE RT 3V AP,LAT,SHOAIB EXAM: XR KNEE RT 3V AP,LAT,SHOAIB CLINICAL HISTORY: Fall, Swelling. TECHNIQUE: 2D digital imaging was performed of the right knee. Three views obtained. AP, lateral an d PA tunnel views were obtained. COMPARISON: CR XR KNEE RT 3V AP,LAT,SHOAIB from 10/20/2021 FINDINGS: BONES: No acute fracture is present. No bony destructive lesion is seen. JOINTS: The knee is normally aligned. No joint effusion is seen. SOFT TISSUE: Mild soft tissue swelling is seen anterior to the patella. Atherosclerosis is present. IMPRESSION: No acute fracture or dislocation. DATA REPOSITORY: RADIATION DOSE DELIVERED:
--- NOTE | 2022-03-25 17:30 | DI.RAD_ITS ---
Exam(s) XR HUMERUS RT EXAM: XR HUMERUS RT CLINICAL HISTORY: Fall, pain, R/O Fracture. TECHNIQUE: 2D digital imaging was performed of the right humerus. Two images were obtained. AP and lateral views were obtained. COMPARISON: CR XR shoulder RT complete 2+V from 11/21/2018 FINDINGS: BONES: No acute fracture is present. There is an old healed proximal right humeral fracture deformit y. The bones are osteopenic. There are mild degenerative changes at the acromioclavicular joint. N o bony destructive lesion is seen. Visualized portion of elbow and shoulder joints are unremarkable. SOFT TISSUE: Normal. IMPRESSION: No acute fracture or dislocation. DATA REPOSITORY: RADIATION DOSE DELIVERED:
--- NOTE | 2022-03-25 17:30 | DI.RAD_ITS ---
Exam(s) XR PELVIS AP EXAM: XR PELVIS AP CLINICAL HISTORY: Fall,. TECHNIQUE: 2D digital imaging was performed. One image was obtained. COMPARISON: CR PELVIS AP from 05/12/2017 CR XR thoracic spine complete from 03/17/2018 FINDINGS: BONES: No acute fracture is present. No bony destructive lesion is seen. JOINTS: No dislocation present. Mild degenerative changes are seen in the hips bilaterally. SOFT TISSUE: Atherosclerosis is present. IMPRESSION: No acute fracture or dislocation. DATA REPOSITORY: RADIATION DOSE DELIVERED:
--- NOTE | 2022-03-25 17:41 | NUR.NOTE ---
pt has abbrasians to right knee, thigh, and arm. swelling and redness to right knee and right thigh. pain with palpation to knee, thigh, and right shoulder. skin tear to left wrist. did have a bloody nose that resolved prior to arrival, bridge of nose does appear to have slight bruising. JOHN
--- NOTE | 2022-03-25 17:46 | ED.GENADUL_ITS ---
Discharge Plan Disposition Patient Disposition: HOME Condition: Stable Discharge Details Clinical Impression: Fall, Hematoma of right thigh, Closed fracture nasal bone Primary Care Provider: Linn Paulino ED Provider: Faye Cross Home Meds and New Rx's Prescriptions: Continued nitroglycerin [Nitrostat] 0.4 mg tablet, sublingual 0.4 mg Sublingual Q5 MIN PRN X3 PRN (Reason: chest pain) Qty: 20 1RF Label Comments: 06/15/19-unable to verify meds, pt left drug list at home and does not know meds/doses. Rx Instructions: Q5min, x3 max, PRN chest pressure (DME) blood-glucose meter Misc See Rx Instructions .MEDSUPPLY Qty: 1 0RF Rx Instructions: As directed to check blood glucose daily. No insulin. Dispense covered brand. (DME) Blood Glucose Test Strip See Rx Instructions .MEDSUPPLY Qty: 100 3RF Rx Instructions: As directed to check blood glucose daily. No insulin. Dispense covered brand. (DME) lancets Misc See Rx Instructions .MEDSUPPLY Qty: 100 3RF Rx Instructions: As directed to check blood glucose daily. No insulin. Dispense covered brand. zoledronic unhu-cpgmhxzw-xmxso [Reclast] 5 mg/100 mL piggyback See Rx Instructions IV .once per year Qty: 100 0RF Rx Instructions: 100mL IV .once per year; administer over at least 15 mins amlodipine 2.5 mg tablet See Rx Instructions PO DAILY Qty: 360 3RF Rx Instructions: 2.5mg AM, 5mg PM PO daily; High blood pressure or as directed (dosed changed 10/09/2020) Eliquis 5 mg tablet 5 mg PO BID Qty: 180 3RF Label Comments: 06/15/19-unable to verify meds, pt left drug list at home and does not know meds/doses. Rx Instructions: anticoagulation for atrial fibrillation losartan 50 mg tablet 50 mg PO BID Qty: 180 3RF Rx Instructions: Blood pressure lidocaine 5 % adhesive patch,medicated 1 patch topical DAILY PRN (Reason: compression fracture pain) Qty: 30 2RF Rx Instructions: leave on most painful area for 12 hrs, then remove for compression fracture or right arm pain; may cut to size cyanocobalamin (vitamin B-12) 1,000 MCG tablet 1,000 mcg PO DAILY Qty: 90 Label Comments: 06/15/19-unable to verify meds, pt left drug list at home and does not know meds/doses. cholecalciferol (vitamin D3) [Vitamin D3] 1,000 UNIT capsule 1,000 unit PO BID Label Comments: 06/15/19-unable to verify meds, pt left drug list at home and does not know meds/doses. aspirin [Aspirin Low-Strength] 81 mg tablet,chewable 81 mg PO DAILY Qty: 90 3RF Label Comments: 06/15/19-unable to verify meds, pt left drug list at home and does not know meds/doses. (DME) lancets [FreeStyle Lancets] 28 gauge misc 1 ea Miscellaneous as directed Qty: 100 3RF Rx Instructions: Free style lancet to monitor daily for E11.9 for goal A1C <7% (DME) Blood Glucose Test Strip See Rx Instructions .ROUTE .MEDSUPPLY Qty: 100 3RF Rx Instructions: As directed to check daily blood glucose. No insulin. Dispense covered brand. Dx: E11.9 to maintain HbA1c less than 7%. nystatin 100,000 unit/gram cream 1 applic TP BID PRN (Reason: robin rash) Qty: 15 0RF Rx Instructions: Apply to affected area on abdomen carvedilol 3.125 mg tablet 3.125 mg PO BID Qty: 180 3RF Rx Instructions: To take with 6.25mg tab for total dose of 9.375 BID for AFib and HTN carvedilol 6.25 mg tablet 6.25 mg PO BID Qty: 180 3RF Rx Instructions: To take with 3.125mg tab for dose of 9.375 BID for AFib and HTN lamotrigine [Lamictal] 100 mg tablet 100 mg PO BID Qty: 180 3RF Label Comments: 06/15/19-unable to verify meds, pt left drug list at home and does not know meds/doses. Rx Instructions: atorvastatin 40 mg tablet 40 mg PO DAILY Qty: 90 3RF Label Comments: 06/15/19-unable to verify meds, pt left drug list at home and does not know meds/doses. citalopram 20 mg tablet 20 mg PO QHS Qty: 90 3RF Rx Instructions: Depression & anxiety omeprazole 20 mg tablet,delayed release (DR/EC) 20 mg PO .every other day Qty: 45 3RF Rx Instructions: To take every other day for atypical chest pain/heartburn gabapentin 300 mg capsule See Rx Instructions .ROUTE .COMPLEX Qty: 360 3RF Dose Instruction: TAKE ONE CAPSULE BY MOUTH EVERY MORNING AND TAKE 1 CAPSULE EVERY AFTERNOON AND TAKE 2 CAPSULES EVERY NIGHT AT BEDTIME FOR NEUROPATHIC PAIN Rx Instructions: TAKE ONE CAPSULE BY MOUTH EVERY MORNING AND TAKE 1 CAPSULE EVERY AFTERNOON AND TAKE 2 CAPSULES EVERY NIGHT AT BEDTIME FOR NEUROPATHIC PAIN lorazepam 0.5 mg tablet 0.5 mg PO DAILY PRN (Reason: acute anxiety) Qty: 28 0RF Rx Instructions: anxiety attacks acetaminophen [Tylenol] 325 MG tablet 650 mg PO Q4H PRN PRNQty: 0 0RF Discharge Instructions Instructions: Head Injury (ED), Shoulder Sprain (ED), Hematoma (ED) Additional Instructions: No evidence of broken bones to your pelvis thigh knee or shoulder. I do suspect that you have exacerbated an old injury. The swelling to your right thigh is bleeding underneath the skin surface. This should go down the next few days. Please keep compression on there take it off once a day. Ice it keep it elevated. Bruising may extend down your leg and move. That is normal. Please return to the ER if the swelling increases, any worsening headache not relieved by Tylenol, blurry vision, confusion or weakness. You do have some broken bones in your nose. Try not to blow your nose. Do not put anything up into your nose. Follow up with primary care provider in 3-5 days. Return to ED sooner if any worsening or concerns. Increase oral fluids. Please take Tylenol 1 or 2 tablets every 4-6 hours as needed for pain. Referrals: Linn Paulino NP [Primary Care Provider] - 3 days Discharge Data Discharge Date/Time-TO BE ENTERED AT DEPARTURE: 03/26/22 00:17 Medical Decision Making 82-year-old female presents to the ER via EMS with chief complaint of mechanical trip and fall just prior to arrival. Patient was outside using her walker when she tripped on the curb. She fell onto her right side. She has swelling and a hematoma noted to her right upper thigh, right knee she is complaining of right upper arm pain. She does have some bruising noted to the bridge of her nose. Denies any loss of consciousness denies any neck pain. She also has a skin tear noted to her left forearm. Patient does take Eliquis. She has a past medical history of chronic kidney disease stage III, coronary artery disease, GERD, type 2 diabetes, diabetic neuropathy, hypertension, gout, hyperlipidemia, atherosclerotic cardiovascular disease, cardiac pacemaker, atrial fibrillation. Imaging ordered including x-rays of her right lower extremity and shoulder, humerus head CT and facial bones. Head CT shows nasal fracture no intracranial bleeding or hemorrhage. No fractures noted. 2154: Attempt to discharge patient with a sling patient is in severe pain and is requesting to be admitted she is mostly complaining of shoulder pain. I will CT her shoulder to rule out fracture due to severe pain and unmanaged pain. Patient has received oxycodone and 4 mg of morphine. Family and patient are requesting to be admitted overnight. They do not feel that they can safely take her home. CT scan, IV and labs ordered. CT shows no acute fracture does radiate. The chronic healed fracture of the proximal right humeral head. No subluxation. Soft tissue swelling noted. Discussed results with patient and family. Discussed case with Dr. Pierson once again unfortunately she does not meet admission criteria. We will give her additional morphine 2 mg here in the department place a lidocaine patch and send patient home with tramadol. Will discuss icing home care and follow-up care. I did discuss with the family that I cannot guarantee that they will be admitted they verbalized understanding. Somewhat upset. Patient given additional 2 mg of morphine at lidocaine patch prior to discharge. Was given 2 tramadol to go. Was helped into the wheelchair by kennel staff member. Instructed to follow-up care verbalized understanding. This text was generated using Skimbleation system, please disregard any oddities of phrase or misspellings. Patient remained hemodynamically stable throughout stay. Medical Records Medical records narrative: CT head and facial bones noted below there is mild displacement of the nasal bones and acute nasal bone fracture. X-rays of right humerus, right femur, pelvis and knee are all within normal limits no acute fracture. There is an old proximal femoral head fracture which appears healed. There are some soft tissue swelling of the anterior knee. Patient is complaining of pain. Patient is complaining of moderate to severe pain of right shoulder. We will have dedicated shoulder x-rays completed. Imaging Data Radiologic Study: Imaging: CT Scan Radiologist's impression: FINDINGS: Orbital cavities: Status post bilateral lens replacement surgery. No acute orbital abnormality or mass is identified. Bones/joints: Minimally displaced bilateral nasal bone fractures without evidence of extension to the osseous septum. Overall alignment, however, is not significantly changed from 11/21/2021. Paranasal sinuses: Normal. No air-fluid levels. Soft tissues: Mild soft tissue swelling of the nose. Vasculature: Dense calcifications at the fkunf-aiaanwu-uxsc-left carotid bifurcations. IMPRESSION: 1. Mild soft tissue swelling of the nose, without demonstration of acute nasal bone fracture. There is mild displacement of the nasal bones, however this is unchanged and likely related to chronic fracture. 2. Dense calcifications of the carotid bifurca tions, with concern for high-grade stenosis or occlusion on the right. Dedicated vascular imaging may be of benefit. Thank you for allowing us to participate in the care of your patient. Dictated and Authenticated by: Kolby Cade MD Radiologic Study #2: Imaging: X-Ray Radiologist's impression: Imaging protocol: Radiologic exam of the Right humerus. Views: 2 or more views. COMPARISON: 1. CR XR shoulder RT complete 2+V 11/21/2018 3:[address] HEAD CERVICAL SPINE WO 10/29/2021 6:20 PM FINDINGS: Bones/joints: There is a chronic appearing fracture of the proximal right humerus, grossly stable. No acute fracture or subluxation is appreciated. Generalized osteopenia. There appear to be mild degenerative changes of the right shoulder. Soft tissues: Normal. IMPRESSION: 1. No evidence of acute fracture of the right humerus. 2. Chronic proximal right humerus fracture, healed, appears stable. Thank you for allowing us to participate in the care of your patient. Dictated and Authenticated by: Kolby Cade MD Radiologic Study #3: Imaging: X-Ray Radiologist's impression: Imaging protocol: Radiologic exam of the Right shoulder. Views: 2 or more views. COMPARISON: CR XR shoulder RT complete 2+V 11/21/2018 3:57 PM FINDINGS: Bones/joints: No acute fracture or subluxation of the right shoulder. There is a stable chronic healed fracture of the proximal right humerus. Mild degenerative changes of the right glenohumeral and acromioclavicular joints are essentially stable. Soft tissues: Normal. IMPRESSION: No acute fracture or subluxation of the right shoulder. HPI General Mode of arrival: EMS . Date/Time Provider Initiated Documentation: 03/25/22 17:13 . Limitations to Documentation: no limitations . Information obtained by: patient, family, RN notes reviewed and old records reviewed . HPI Narrative: 82-year-old female presents to the ER via EMS with chief complaint of mechanical trip and fall just prior to arrival. Patient was outside using her walker when she tripped on the curb. She fell onto her right side. She has swelling and a hematoma noted to her right upper thigh, right knee she is complaining of right upper arm pain. She does have some bruising noted to the bridge of her nose. Denies any loss of consciousness denies any neck pain. She also has a skin tear noted to her left forearm. Patient does take Eliquis. She has a past medical history of chronic kidney disease stage III, coronary artery disease, GERD, type 2 diabetes, diabetic neuropathy, hypertension, gout, hyperlipidemia, atherosclerotic cardiovascular disease, cardiac pacemaker, atrial fibrillation. Related Data Home Medications Medication Instructions Recorded Confirmed acetaminophen 325 mg tablet 650 mg PO Q4H PRN PRN #0 tabs 01/15/16 01/09/22 (Tylenol) cyanocobalamin (vitamin B-12) 1,000 mcg PO DAILY #90 tab-caps 02/10/16 01/09/22 1,000 mcg tablet cholecalciferol (vitamin D3) 25 1,000 unit PO BID 10/05/16 01/09/22 mcg (1,000 unit) capsule (Vitamin D3) aspirin 81 mg chewable tablet 81 mg PO DAILY #90 tabs 07/19/18 01/09/22 (Aspirin Low-Strength) blood sugar diagnostic (Blood #100 ea 03/20/20 12/09/21 Glucose Test strips) lancets 28 gauge (FreeStyle #100 ea 03/20/20 12/09/21 Lancets) nitroglycerin 0.4 mg sublingual 0.4 mg sublingual Q5 MIN PRN X3 04/22/20 01/09/22 tablet (Nitrostat) PRN chest pain #20 tabs blood sugar diagnostic (Blood #100 ea 10/02/20 12/09/21 Glucose Test strips) blood-glucose meter #1 ea 10/02/20 12/09/21 lancets #100 ea 10/02/20 12/09/21 nystatin 100,000 unit/gram topical 1 applic topical BID PRN robin 06/13/21 01/09/22 cream rash #15 grams zoledronic acid 5 mg/100 mL in See Rx Instructions IV .once per 06/23/21 01/09/22 mannitol 5 %-water intravenous year #100 mL piggybck (Reclast) carvedilol 3.125 mg tablet 3.125 mg PO BID #180 tabs 07/30/21 01/09/22 carvedilol 6.25 mg tablet 6.25 mg PO BID #180 tabs 07/30/21 01/09/22 lamotrigine 100 mg tablet 100 mg PO BID #180 tab-caps 08/14/21 01/09/22 (Lamictal) atorvastatin 40 mg tablet 40 mg PO DAILY #90 tabs 09/15/21 01/09/22 citalopram 20 mg tablet 20 mg PO QHS #90 tabs 09/15/21 01/09/22 amlodipine 2.5 mg tablet See Rx Instructions PO DAILY #360 10/08/21 01/09/22 tabs apixaban 5 mg tablet (Eliquis) 5 mg PO BID #180 tabs 10/08/21 01/09/22 losartan 50 mg tablet 50 mg PO BID #180 tabs 12/10/21 01/09/22 omeprazole 20 mg tablet,delayed 20 mg PO .every other day #45 tabs 12/15/21 01/09/22 release lidocaine 5 % topical patch 1 patch topical DAILY PRN 01/09/22 01/09/22 compression fracture pain #30 ea gabapentin 300 mg capsule See Rx Instructions .Route 03/18/22 .COMPLEX #360 caps lorazepam 0.5 mg tablet 0.5 mg PO DAILY PRN acute anxiety 03/18/22 #28 tabs Previous Rx's Medication Instructions Recorded acetaminophen 325 mg tablet 650 mg PO Q4H PRN PRN #0 tabs 01/15/16 (Tylenol) aspirin 81 mg chewable tablet 81 mg PO DAILY #90 tabs 07/19/18 (Aspirin Low-Strength) blood sugar diagnostic (Blood #100 ea 03/20/20 Glucose Test strips) lancets 28 gauge (FreeStyle #100 ea 03/20/20 Lancets) nitroglycerin 0.4 mg sublingual 0.4 mg sublingual Q5 MIN PRN X3 04/22/20 tablet (Nitrostat) PRN chest pain #20 tabs blood sugar diagnostic (Blood #100 ea 10/02/20 Glucose Test strips) blood-glucose meter #1 ea 10/02/20 lancets #100 ea 10/02/20 nystatin 100,000 unit/gram topical 1 applic topical BID PRN robin 06/13/21 cream rash #15 grams zoledronic acid 5 mg/100 mL in See Rx Instructions IV .once per 06/23/21 mannitol 5 %-water intravenous year #100 mL piggybck (Reclast) carvedilol 3.125 mg tablet 3.125 mg PO BID #180 tabs 07/30/21 carvedilol 6.25 mg tablet 6.25 mg PO BID #180 tabs 07/30/21 lamotrigine 100 mg tablet 100 mg PO BID #180 tab-caps 08/14/21 (Lamictal) atorvastatin 40 mg tablet 40 mg PO DAILY #90 tabs 09/15/21 citalopram 20 mg tablet 20 mg PO QHS #90 tabs 09/15/21 amlodipine 2.5 mg tablet See Rx Instructions PO DAILY #360 10/08/21 tabs apixaban 5 mg tablet (Eliquis) 5 mg PO BID #180 tabs 10/08/21 losartan 50 mg tablet 50 mg PO BID #180 tabs 12/10/21 omeprazole 20 mg tablet,delayed 20 mg PO .every other day #45 tabs 12/15/21 release lidocaine 5 % topical patch 1 patch topical DAILY PRN 01/09/22 compression fracture pain #30 ea gabapentin 300 mg capsule See Rx Instructions .Route 03/18/22 .COMPLEX #360 caps lorazepam 0.5 mg tablet 0.5 mg PO DAILY PRN acute anxiety 03/18/22 #28 tabs Allergies Allergy/AdvReac Type Severity Reaction Status Date / Time nifedipine Allergy Mild Hives Verified 03/25/22 17:13 amiodarone AdvReac Severe tremor Verified 03/25/22 17:13 oxycodone AdvReac Severe heavy Verified 03/25/22 17:13 sedation amoxicillin AdvReac Intermediate sore Verified 03/25/22 17:13 burning mouth Anesthetics - Amide Type - AdvReac Intermediate anxious Verified 03/25/22 17:13 Select A [Anesthetics - Amide Type] diazepam AdvReac Intermediate Agitation Verified 03/25/22 17:13 indomethacin AdvReac Intermediate headache, Verified 03/25/22 17:13 flush metformin AdvReac Intermediate Diarrhea Verified 03/25/22 17:13 General Stated Complaint: Orthopedic ANASTACIA: 3 Review of Systems All systems reviewed & are unremarkable except as noted in HPI and below Musculoskeletal Musculoskeletal: Reports as per HPI, Reports arthralgias and Reports joint swelling Comments: Swelling right thigh, right knee, old contusions noted to her right forearm. She is complaining of right shoulder pain. She does have some contusions noted to her the bridge of her nose. PFSH All Active Problems (Updated 03/25/22 @ 21:33 by Faye Cross NP) Fall (Acute) Hematoma of right thigh (Acute) Closed fracture nasal bone (Acute) Hypokalemia (Acute) Atherosclerosis of right carotid artery (Acute) Subjective memory complaints (Acute) MoCA 25/30; executive difficulty Presence of permanent cardiac pacemaker (Acute) Dual lead Medtronic pacemaker 09/05/2015; Her presenting rhythm is atrial pacing and underlying rhythm is sinus Caregiver burden (Acute) Generalized anxiety disorder (Acute) Atrial fibrillation (Chronic) s/p ablation 02/2016 Numbness and tingling of both legs (Acute) 02/06/20 Peripheral Neuropathy Podiatry: Dr Robbins Abnormal echocardiogram (Acute) 05/28/2018 ([facility] [place] 1+/4+ mitral regurg; EF 56% Depression (Chronic) a. h/o ECT treatment x1 (per Liliana very effective) b. formerly followed by Chauncey Gracia NP c. On multiple medications d. h/o psychiatric hospitalizations for reported bipolar e. h/o suicide attempts Retinal dot hemorrhage of both eyes (Acute) 08/15/2019 Dr Aliza Eng Osteoporosis (Chronic) See 10/2018 CT T11 compression fracture 2017 DEXA osteopenia [id number]: Boniva x2, which she tolerated, thus switching to Reclast (better outcome data) ASCVD (arteriosclerotic cardiovascular disease) (Chronic) cardiac cath Essential tremor (Chronic 04/02/08) R > L, EVAL PRICE 2008; DINORAHWKAILASH [id number]; responds to low dose propranolol Hyperlipidemia (Chronic 08/17/11) Crestor switched to Atorvastatin per ins Generalized atherosclerosis (Chronic 08/17/11) H/O CABG 1993; Cath 11/2015: all three grafts open; EF 60%; JUANPABLO 02/2015 EF 55% Gouty arthropathy, unspecified (Chronic 08/17/11) Essential hypertension (Chronic 08/17/11) Diabetic neuropathy (Chronic 03/07/15) Dr Robbins DM type 2, controlled, with complication (Chronic) complications: neuropathy, cardiovascular disease Chronic nonalcoholic liver disease (Chronic 08/17/11) Chronic kidney disease, stage III (moderate) (Chronic 08/17/11) Coronary artery disease (Chronic) a. inferior TN 1984 b. TN with CABG 1992 Patient is doing well with no chest pain. 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) Apixaban for AF GERD (gastroesophageal reflux disease) (Chronic) Severe anxiety with panic (Chronic) L-T BZD Rx Fatty liver (Chronic) Medical History Chest pain Chronic atrial fibrillation (11/19/15) s/p Ablation 02/2016 Chronic fatigue syndrome Chronic pain Back; L-T Tramadol RX (which was discont 2018); h/o compression fractures Diarrhea [facility] GI 2019; Kefir & Psyllium husk help Fracture of rib of right side (08/26/15) Fracture of right shoulder (08/26/15) Frequent falls (04/05/17) Hematoma Mid back pain compression fx Primary osteoarthritis of right knee (08/24/16) Prolonged MA interval Sleeping difficulty (07/01/15) Improved on Mirtaz 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 declined ablation at [facility] [place] Patient's dual-chamber pacemaker is functioning normally with ample generator life remaining. She has had no further PAF episodes noted. Her presenting rhythm is atrial pacing and underlying rhythm is sinus bradycardia. No reprogramming needed. She does not use remote monitoring. Trigger finger, left middle finger Trigger finger, left ring finger Trigger finger, right ring finger Unexplained weight loss GI work-up NEG; Mirtaz helped Surgical History Ablation for A Fib (03/10/16) Catheter ablatioin for A Flutter and catheter ablatiion for A Fib; [facility] [place] Dr David King cardiac catheterization (11/27/14) 3 vessel disease, occluded, Grafts: mammary artery and 2 venous grafts are all open. cardioversion (07/20/14) Dr Garcia, [facility] Extraction of cataract (11/11/15) L cataract [place] R cataract-Dr Hutson H/O surgical procedure a. left cataract surgery b. Duane fundoplication c. carpal tunnel syndrome d. bilateral tubal ligation e. hysterectomy f. arthroscopy left knee 09/2011 g. s/p breast reduction History of hysterectomy Pacemaker (09/05/15) [facility] [place], MEDTR[employer]IC DUAL CHAMBER Replacement of total knee joint (09/14/11) CELESTE LEFT TKA Trigger Finger release R 4th digit Family History Mother , perf ulcer at age 78. Hip fracture mother from complications of hip fracture Father , stroke at age 80. No problems noted. Sister No problems noted. Social History Smoking/Tobacco Use Status: Never Second Hand Exposure: No Smoking risk assessment performed?: Yes Alcohol Intake: never Drug use: Never Substance use type: does not use Adopted: No (raised by Aunt and Uncle) Caregiver/Support person: Yes (youngest daughter: Jacquelyn Chavira is healthcare agent [phone]) Foster care: No Household members: spouse Housing: house Number of Children: 4 Current gender identity: female What is your relationship status?: Panel score (0-1 are the most socially isolated patients): 1 What type of physical activity do you participate in: additional Details: gardening, playing with dog Shasta/Orthodoxy: Rastafarian Seatbelt use: always Drive intox or ride w/intox 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 History History 5 Para Hx # Term Pregnancies 4 Multiple births Hx # Pregnancies Ectopic pregnancies AB induced Hx Number of Living Children AB spontaneous Exam Narrative Exam Narrative: General: Well Developed, Awake and Alert, conversant. Skin: Warm and Dry HEENT: Head: No palpable deformities, Normocephalic Eyes: Pupils PERRLA, EOM's intact. No periorbital eccymosis or step off Ears: Canal patent. Tympanic membranes are clear . No pathak's sign, no hemptympanum. Nose/Face: Contusion, tenderness swelling to the bridge of her nose. Facial bon es nontender to palpation and stable with manipulation. Mouth/Throat: No intraoral trauma. Teeth and mandible are intact. Neck: No midline tenderness, no step off, no deformity to palpation of C-spine. Trachea midline. Chest: No surface trauma. Nontender without crepitus or deformity. Lungs clear to ausculatation bilaterally. Heart: RRR, no rubs, murmurs or gallop. Abdomen: No abrasions, ecchymosis, or surface trauma. Nondistended. Nontender to palpation no guarding, rebound, or rigidity. Pelvis: Nontender to palpation and stable to compression. Femoral pulses strong and equal Extremities: Abrasion swelling and ecchymosis noted to the mid lateral right thigh, approximately 7 cm x 7 cm. Abrasion and swelling ecchymosis noted to the right anterior knee. Sensation intact. Peripheral pulses intact and equal. Old contusions noted to the right forearm. No obvious deformity. Complaining of right shoulder pain. Neuro: ANO x4, GCS 15, cranial nerves II through XII intact. Motor and sensory exam nonfocal. Reflexes are symmetric. Course Vital Signs Vital signs: Vital Signs Temperature 36.3 C L 03/25/22 17:07 Pulse 66 03/25/22 17:07 Respiratory Rate 18 03/25/22 17:07 Blood Pressure 168/79 H 03/25/22 17:07 Pulse Oximetry 96 03/25/22 17:07 Temperature 36.3 C L 03/25/22 17:07 Temperature Source Temporal Artery Scan 03/25/22 17:07 Pulse 66 03/25/22 17:07 Respiratory Rate 18 03/25/22 17:07 Respiratory Effort 03/25/22 17:44 Respiratory Depth Normal 03/25/22 17:44 Respiratory Pattern Normal 03/25/22 17:44 Blood Pressure 168/79 H 03/25/22 17:07 Blood Pressure Position Supine 03/25/22 17:07 Pulse Oximetry 96 03/25/22 17:07 Oxygen Delivery Method Room Air 03/25/22 17:07 Oxygen Flow Rate 0 03/25/22 17:07 Pain Level 7 03/25/22 17:23
[2022-03-25] MEDS: oxyCODONE 5 MG TAB PO (17:54)
[2022-03-25] MEDS: Lidocaine/Epinephri/Tetracaine Topical Gel 3 ML TP (18:09)
--- NOTE | 2022-03-25 18:17 | NUR.NOTE ---
skin tear on left wrist was cleaned and LET was applied with non adhesive dressing and coban. :
--- NOTE | 2022-03-25 20:00 | DI.RAD_ITS ---
Exam(s) XR SHOULDER RT COMPLETE 2+V EXAM: XR SHOULDER RT COMPLETE 2+V CLINICAL HISTORY: R/O Fracture. TECHNIQUE: 2D digital imaging was performed of the right shoulder. Four images were obtained. AP, Grashey, and Y-views views were obtained. COMPARISON: CR XR shoulder RT complete 2+V from 11/21/2018 FINDINGS: BONES: No acute fracture is present. There is an old healed proximal right humeral fracture. No bon y destructive lesion is seen. JOINTS: No dislocation present. Degenerative changes are seen at both the glenohumeral and acromiocla vicular joints. SOFT TISSUE: Normal. IMPRESSION: No acute fracture or dislocation. DATA REPOSITORY: RADIATION DOSE DELIVERED:
--- NOTE | 2022-03-25 20:01 | DI.VRAD_ITS ---
PROCEDURE INFORMATION: Exam: CT Head Without Contrast Exam date and time: 03/25/2022 7:29 PM Age: 82 years old Clinical indication: Other: Fall, nasal injury, on eliquis TECHNIQUE: Imaging protocol: Computed tomography of the head without contrast. Radiation optimization: All CT scans at this facility use at least one of these dose optimization techniques: automated exposure control; mA and/or kV adjustment per patient size (includes targeted exams where dose is matched to clinical indication); or iterative reconstruction. COMPARISON: CT HEAD WO 11/21/2021 3:37 PM FINDINGS: Brain: No acute intracranial hemorrhage, edema, midline shift, or mass effect. No CT evidence of acute transcortical infarction. Generalized volume loss with chronic small vessel ischemic changes are essentially stable. Cerebral ventricles: No ventriculomegaly. Paranasal sinuses: Visualized sinuses are unremarkable. No fluid levels. Mastoid air cells: Visualized mastoid air cells are well aerated. Orbital cavities: Status post bilateral lens replacement surgery. Bones/joints: The calvarium appears intact. Soft tissues: Unremarkable. Vasculature: Dense calcifications of the intracranial internal carotid and vertebral arteries. IMPRESSION: No acute intracranial abnormality is appreciated. Stable appearance of the brain. PROCEDURE INFORMATION: Exam: CT Maxillofacial Without Contrast Exam date and time: 03/25/2022 7:29 PM Age: 82 years old Clinical indication: Other: Fall, nasal injury, on eliquis TECHNIQUE: Imaging protocol: Computed tomography of the of the face without contrast. Radiation optimization: All CT scans at this facility use at least one of these dose optimization techniques: automated exposure control; mA and/or kV adjustment per patient size (includes targeted exams where dose is matched to clinical indication); or iterative reconstruction. COMPARISON: CT HEAD WO 11/21/2021 3:37 PM FINDINGS: Orbital cavities: Status post bilateral lens replacement surgery. No acute orbital abnormality or mass is identified. Bones/joints: Minimally displaced bilateral nasal bone fractures without evidence of extension to the osseous septum. Overall alignment, however, is not significantly changed from 11/21/2021. Paranasal sinuses: Normal. No air-fluid levels. Soft tissues: Mild soft tissue swelling of the nose. Vasculature: Dense calcifications at the loiix-pzjigqn-fgey-left carotid bifurcations. IMPRESSION: 1. Mild soft tissue swelling of the nose, without demonstration of acute nasal bone fracture. There is mild displacement of the nasal bones, however this is unchanged and likely related to chronic fracture. 2. Dense calcifications of the carotid bifurcations, with concern for high-grade stenosis or occlusion on the right. Dedicated vascular imaging may be of benefit. Dictated and Authenticated by: Kolby Cade MD. Ordering:LELA Mckinney MD
--- NOTE | 2022-03-25 20:05 | DI.VRAD_ITS ---
PROCEDURE INFORMATION: Exam: XR Pelvis Exam date and time: 03/25/2022 7:49 PM Age: 82 years old Clinical indication: Other: Fall, ; additional info: Fall, pain, TECHNIQUE: Imaging protocol: Radiologic exam of the pelvis. Views: 1 or 2 view. COMPARISON: CT ABDOMEN PELVIS WO/W 06/15/2019 3:09 PM FINDINGS: Bones/joints: Mild degenerative changes of the sacroiliac joints and hips. No evidence of acute fracture or subluxation. No aggressive osseous lesion is identified. Soft tissues: Unremarkable. IMPRESSION: No evidence of acute fracture or subluxation of the pelvis. Dictated and Authenticated by: Kolby Cade MD. Ordering:LELA Mckinney MD
--- NOTE | 2022-03-25 20:06 | DI.VRAD_ITS ---
PROCEDURE INFORMATION: Exam: XR Right Humerus Exam date and time: 03/25/2022 7:44 PM Age: 82 years old Clinical indication: Other: Fall, pain, R/O fracture TECHNIQUE: Imaging protocol: Radiologic exam of the Right humerus. Views: 2 or more views. COMPARISON: 1. CR XR shoulder RT complete 2+V 11/21/2018 3:[address] HEAD CERVICAL SPINE WO 10/29/2021 6:20 PM FINDINGS: Bones/joints: There is a chronic appearing fracture of the proximal right humerus, grossly stable. No acute fracture or subluxation is appreciated. Generalized osteopenia. There appear to be mild degenerative changes of the right shoulder. Soft tissues: Normal. IMPRESSION: 1. No evidence of acute fracture of the right humerus. 2. Chronic proximal right humerus fracture, healed, appears stable. Dictated and Authenticated by: Kolby Cade MD. Ordering:LELA Mckinney MD
--- NOTE | 2022-03-25 20:07 | DI.VRAD_ITS ---
PROCEDURE INFORMATION: Exam: XR Right Femur Exam date and time: 03/25/2022 7:50 PM Age: 82 years old Clinical indication: Other: Fall, swelling TECHNIQUE: Imaging protocol: Radiologic exam of the Right femur. Views: 2 views. COMPARISON: CT RIGHT LOWER EXTREM WO CONTRAST 01/13/2016 5:04 PM FINDINGS: Bones/joints: Generalized osteopenia. Mild degenerative changes of the right hip and knee. No evidence of acute fracture or subluxation. No aggressive osseous lesion is identified. Soft tissues: Unremarkable. Vasculature: Scattered arterial calcifications are appreciated. IMPRESSION: No evidence of acute fracture of the right femur. Dictated and Authenticated by: Kolby Cade MD. Ordering:LELA Mckinney MD
--- NOTE | 2022-03-25 20:08 | DI.VRAD_ITS ---
PROCEDURE INFORMATION: Exam: XR Right Knee Exam date and time: 03/25/2022 7:51 PM Age: 82 years old Clinical indication: Other: Fall, swelling TECHNIQUE: Imaging protocol: Radiologic exam of the Right knee. Views: 3 views. COMPARISON: CR XR KNEE RT 3V AP,LAT,SHOAIB 10/20/2021 10:39 AM FINDINGS: Bones/joints: Mild degenerative changes of the right knee. No evidence of acute fracture or subluxation. No aggressive osseous lesion is identified. Soft tissues: Soft tissue swelling anterior to the patella. Vasculature: Scattered arterial calcifications are appreciated. IMPRESSION: Anterior soft tissue swelling, likely reflecting contusion or hematoma, without demonstration of acute fracture or subluxation. Dictated and Authenticated by: Kolby Cade MD. Ordering:LELA Mckinney MD
[2022-03-25] MEDS: Ondansetron O.D.T. 4 MG TABEF PO (20:24)
[2022-03-25] MEDS: MORPHine 4 MG/ML SYR IM (20:25)
--- NOTE | 2022-03-25 21:25 | DI.VRAD_ITS ---
PROCEDURE INFORMATION: Exam: XR Right Shoulder Exam date and time: 03/25/2022 9:05 PM Age: 82 years old Clinical indication: Injury or trauma; Fall; Blunt trauma (contusions or hematomas); Shoulder; Right; Injury date: 03/25/22 TECHNIQUE: Imaging protocol: Radiologic exam of the Right shoulder. Views: 2 or more views. COMPARISON: CR XR shoulder RT complete 2+V 11/21/2018 3:57 PM FINDINGS: Bones/joints: No acute fracture or subluxation of the right shoulder. There is a stable chronic healed fracture of the proximal right humerus. Mild degenerative changes of the right glenohumeral and acromioclavicular joints are essentially stable. Soft tissues: Normal. IMPRESSION: No acute fracture or subluxation of the right shoulder. Dictated and Authenticated by: Kolby Cade MD. Ordering:LELA Mckinney MD
--- NOTE | 2022-03-25 21:45 | DI.CT_ITS ---
Exam(s) CT UPPER EXTREMITY RT WO EXAM: CT UPPER EXTREMITY RT WO CLINICAL HISTORY: Fall, R/O Fracture. TECHNIQUE: Imaging Protocol: Axial computed tomography images with coronal and sagittal reformatted images were created and reviewed. COMPARISON: CR,XR XR SHOULDER RT COMPLETE 2+V from 03/25/2022 FINDINGS: Bones: The osseous structures and articular surfaces are intact. There is an old healed proximal hu meral fracture. Bony alignment is satisfactory. No cellulitic or osteomyelitic changes are identifi ed. Degenerative changes are seen at both the acromioclavicular and glenohumeral joints. No lytic o r sclerotic lesions are identified. There is narrowing of the acromial humeral interval. This may re flect chronic rotator cuff tear. Soft Tissues: There is a 2 mm noncalcified pulmonary nodule in the lateral aspect of the right upper lobe. IMPRESSION: 1. No evidence of an acute fracture or dislocation. 2. Old healed proximal right humeral fracture. 3. 2 mm nodule in the right upper lobe. For patients at low risk, no routine follow-up is indicated. For patients at high risk (history of smoking or other known risk factors), optional CT scan at 12 months should be considered. (Concepción et al, 2017). RADIATION DOSE DELIVERED: 370.99mGy.cm Total DLP 370.99mGy.cm Total DLP DATA REPOSITORY: All CT scans at this facility are submitted to the National Radiology Data Registry (NRDR) Dose Index Registry (DIR) with the [employer] (A[employer]). RADIATION OPTIMIZATION: All CT scans at this facility use at least one of these dose optimization te chniques: automated exposure control; mA and/or kV adjustment per patient size (includes targeted exa ms where dose is matched to clinical indication); or iterative reconstruction.
[2022-03-25] MEDS: MORPHine 10 MG/ML VIAL 2 MG IVP ×2 (22:12→23:39)
[2022-03-25 22:24] LABS: Abs Immature Grans 0.03 10^3/uL (0.0-0.06); Absolute Basophil Count 0.04 10^3/uL (0.0-0.2); Absolute Eosinophil Count 0.16 10^3/uL (0.0-0.7); Absolute Lymphocyte Count 1.59 10^3/uL (1.2-3.4); Absolute Monocyte Count 0.55 10^3/uL (0.1-0.8); Absolute Neutrophil Count 5.57 10^3/uL (1.2-6.7); Basophils % 0.5; HCT 36.4 % (36.0-46.0); HGB 12.2 g/dL (11.2-15.7); Immature Grans % 0.4; MCH 32.4 pg (27.0-33.0); MCHC 33.5 % (32.0-36.0); MCV 97 fL (80-95); MPV 9.4 fL (8.0-11.0); Monocytes % 6.9; Neutrophils % 70.2; Platelet Count 143 10^3/uL (130-400); RBC 3.76 10^6/uL (3.93-5.22); RDW 11.9 % (11.7-14.6); RDW-SD 42.3 fL; WBC 7.94 10^3/uL (4.4-10.8)
[2022-03-25 22:29] LABS: ALT 24 U/L (14-59); AST 19 U/L (15-37); Albumin 3.9 g/dL (3.4-5.0); Alkaline Phosphatase 46 U/L (46-116); Anion Gap 8.4 mmol/L (3-11); BUN 15 mg/dL (7-18); Bilirubin, Total 0.5 mg/dL (0.2-1.0); CO2 27.6 mmol/L (21.0-32.0); CREATININE 0.9 mg/dL (0.55-1.02); Calcium 9.8 mg/dL (8.5-10.1); Chloride 103 mmol/L (98-107); Estimated GFR 64.63 (mL/min/1.73m2); Glucose 130 mg/dL (74-106); Potassium 3.9 mmol/L (3.5-5.1); Sodium 139 mmol/L (136-145); Total Protein 7.9 g/dL (6.4-8.2)
[2022-03-25 22:35] LABS: PTT Activated 24.5 sec (21.0-27.5)
--- NOTE | 2022-03-25 22:42 | DI.VRAD_ITS ---
PROCEDURE INFORMATION: Exam: CT Right Upper Extremity Without Contrast, Shoulder Exam date and time: 03/25/2022 10:27 PM Age: 82 years old Clinical indication: Injury or trauma; Fall; Blunt trauma (contusions or hematomas); Shoulder; Right; Injury date: 03/25/22; Injury details: R/O FX TECHNIQUE: Imaging protocol: Computed tomography of the Right upper extremity without contrast. Exam focused on the shoulder. Radiation optimization: All CT scans at this facility use at least one of these dose optimization techniques: automated exposure control; mA and/or kV adjustment per patient size (includes targeted exams where dose is matched to clinical indication); or iterative reconstruction. COMPARISON: CR XR SHOULDER RT COMPLETE 2+V 03/25/2022 9:05 PM FINDINGS: Bones/joints: Chronic healed fracture of the proximal right humeral metaphysis is again appreciated. There is no evidence of acute fracture or subluxation. No aggressive osseous lesion is identified. There are moderate degenerative changes of the glenohumeral and acromioclavicular joints. Note is made of severe narrowing of the right rotator cuff interval which measures approximately 2 mm on the sagittal reconstructions. Soft tissues: There is mild dorsal superficial soft tissue swelling over the scapular spine. No focal collection is appreciated. Lungs: Noncalcified lateral right upper lobe nodule measures 2 x 2 mm (series 10, image 45). Right upper lobe calcified granuloma is also appreciated. IMPRESSION: 1. No evidence of acute fracture or subluxation of the right shoulder. Chronic healed fracture is again appreciated. 2. Moderate degenerative changes of the right shoulder, with severe narrowing of the rotator cuff interval, concerning for underlying rotator cuff injury. 3. Dorsal soft tissue swelling over the scapular spine likely represents contusion. 4. Noncalcified nodule of the right upper lobe. For patients at low risk (minimal or absent history of smoking and of other known risk factors), no routine follow-up is indicated. For patients at high risk (history of smoking or of other known risk factors), consider optional CT Chest at 12 months. (Reference: Kanwal) REFERENCES: Kanwal Duarte et al. Guidelines for Management of Incidental Pulmonary Nodules Detected on CT Images: From the Fleischner Society 2017. Radiology. 2017;284(1):228-243. Dictated and Authenticated by: Kolby Cade MD. Ordering:LELA Mckinney MD
[2022-03-25] MEDS: Lidocaine 5% Patch 1 PATCH TP (23:39)
[2022-03-25 23:45] VITALS: BP 130/94; PULSE 60; RESP 18; O2SAT 97
--- NOTE | 2022-03-26 06:12 | NUR.NOTE ---
Patient and family need help getting resources for. Patient is a fall risk and is having a hard time with pain control.Nursing Note:
== END 2022-03-26 00:17 | disposition home or self-care (01) ==
PROVIDERS: Emergency Provider Registered Nurse Emergency; PCP Nurse Practitioner Adult Health
DX: S70.11XA Contusion of right thigh, initial encounter (principal); S80.01XA Contusion of right knee, initial encounter; G89.11 Acute pain due to trauma; M25.511 Pain in right shoulder; S51.812A Laceration without foreign body of left forearm, initial encounter; E11.22 Type 2 diabetes mellitus with diabetic chronic kidney disease; I12.9 Hypertensive chronic kidney disease with stage 1 through stage 4 chronic kidney disease, or unspecified chronic kidney disease; N18.30 Chronic kidney disease, stage 3 unspecified; M79.621 Pain in right upper arm; S02.2XXA Fracture of nasal bones, initial encounter for closed fracture; W01.0XXA Fall on same level from slipping, tripping and stumbling without subsequent striking against object, initial encounter; I48.20 Chronic atrial fibrillation, unspecified; Z95.0 Presence of cardiac pacemaker; Z79.01 Long term (current) use of anticoagulants
CPT/HCPCS: 73552; 73562; 80053; 96372; 96374; 96376; 99284; 70450; 70486; 72170; 73030; 73060; 73200; 85025; 85610; 85730; J2270

== ENCOUNTER → 2022-04-15 14:46 | Outpatient (BNVA) | payer MEDICARE, BC, SELFPAY | PROVIDERS: PCP Nurse Practitioner Adult Health; Referring Provider Nurse Practitioner Adult Health; Visit Provider Internal Medicine Cardiovascular Disease | DX: Z95.0 Presence of cardiac pacemaker (principal) | CPT/HCPCS: 93280 ==

== ENCOUNTER 2022-07-12 12:56 | Emergency (ER) | payer MEDICARE, BC, SELFPAY ==
[2022-07-12 13:02] VITALS: BP 146/71; PULSE 85; RESP 16; TEMP 37.1; O2SAT 94
--- NOTE | 2022-07-12 13:15 | DI.CT_ITS ---
Exam(s) CT ORBITS WO EXAM: CT ORBITS WO CLINICAL HISTORY: trauma left eye, conjunctival hemorrhage. TECHNIQUE: Imaging Protocol: Axial computed tomography images with coronal and sagittal reformatted images were created and reviewed CONTRAST MATERIAL: Noncontrast COMPARISON: CT CT HEAD FACIAL WO from 03/25/2022 FINDINGS: Globes: The anterior and posterior chambers are intact. Optic Nerves: Normal. Extraocular muscles: Normal. Retrobulbar fat: Normal. Orbital gaffney: No acute fracture is noted. Sinuses: Unremarkable. Soft Tissues: Mild swelling around left orbit. Visualized portions of the brain: Atrophy. IMPRESSION: Soft tissue swelling around left orbit. No evidence of fracture RADIATION DOSE DELIVERED: 194.78mGy.cm Total DLP DATA REPOSITORY: All CT scans at this facility are submitted to the National Radiology Data Registry (NRDR) Dose Index Registry (DIR) with the [employer] (ACR). RADIATION OPTIMIZATION: All CT scans at this facility use at least one of these dose optimization te chniques: automated exposure control; mA and/or kV adjustment per patient size (includes targeted exa ms where dose is matched to clinical indication); or iterative reconstruction.
--- NOTE | 2022-07-12 13:33 | ED.GENADUL_ITS ---
Discharge Plan Disposition Patient Disposition: Home Condition: Stable Discharge Details Clinical Impression: Subconjunctival hemorrhage, traumatic, Corneal abrasion Primary Care Provider: Linn Paulino ED Provider: Steven Hart Home Meds and New Rx's Prescriptions: Continued zoledronic [id number] [Reclast] 5 mg/100 mL piggyback See Rx Instructions IV .once per year Qty: 100 0RF Rx Instructions: 100mL IV .once per year; administer over at least 15 mins amlodipine 2.5 mg tablet See Rx Instructions PO DAILY Qty: 360 3RF Rx Instructions: 2.5mg AM, 5mg PM PO daily; High blood pressure or as directed (dosed changed 10/09/2020) mupirocin 2 % ointment 1 applic topical BID Qty: 15 1RF Rx Instructions: May substitute with cream if less expensive; apply thin layer to corners of the mouth until area/lesion resolved valacyclovir [Valtrex] 1 gram tablet 1,000 mg PO Q12H Qty: 30 1RF Rx Instructions: Take 1,000mg twice per day for 5d for each occurrence. lorazepam 0.5 mg tablet 0.5 mg PO DAILY PRN (Reason: Panic attack) Qty: 10 0RF Rx Instructions: Panic attack nitroglycerin [Nitrostat] 0.4 mg tablet, sublingual 0.4 mg Sublingual Q5 MIN PRN X3 PRN (Reason: chest pain) Qty: 20 1RF Label Comments: 06/15/19-unable to verify meds, pt left drug list at home and does not know meds/doses. Rx Instructions: Q5min, x3 max, PRN chest pressure losartan 50 mg tablet 50 mg PO BID Qty: 180 3RF Rx Instructions: Blood pressure lidocaine 5 % adhesive patch,medicated 1 patch topical DAILY PRN (Reason: compression fracture pain) Qty: 30 2RF Rx Instructions: leave on most painful area for 12 hrs, then remove for compression fracture or right arm pain; may cut to size nystatin 100,000 unit/gram cream 1 applic TP BID PRN (Reason: robin rash) Qty: 15 0RF Rx Instructions: Apply to affected area on abdomen lorazepam 0.5 mg tablet 0.5 mg PO DAILY PRN (Reason: acute anxiety) Qty: 28 3RF Rx Instructions: anxiety attacks L. acidophilus/Bifid. animalis [Daily Probiotic] PO DAILY (DME) blood-glucose meter Misc See Rx Instructions .MEDSUPPLY Qty: 1 0RF Rx Instructions: As directed to check blood glucose daily. No insulin. Dispense covered brand. (DME) Blood Glucose Test Strip See Rx Instructions .MEDSUPPLY Qty: 100 3RF Rx Instructions: As directed to check blood glucose daily. No insulin. Dispense covered brand. (DME) lancets Misc See Rx Instructions .MEDSUPPLY Qty: 100 3RF Rx Instructions: As directed to check blood glucose daily. No insulin. Dispense covered brand. cyanocobalamin (vitamin B-12) 1,000 MCG tablet 1,000 mcg PO DAILY Qty: 90 Label Comments: 06/15/19-unable to verify meds, pt left drug list at home and does not know meds/doses. cholecalciferol (vitamin D3) [Vitamin D3] 1,000 UNIT capsule 1,000 unit PO BID Label Comments: 06/15/19-unable to verify meds, pt left drug list at home and does not know meds/doses. carvedilol 3.125 mg tablet 3.125 mg PO BID Qty: 180 3RF Rx Instructions: To take with 6.25mg tab for total dose of 9.375 BID for AFib and HTN carvedilol 6.25 mg tablet 6.25 mg PO BID Qty: 180 3RF Rx Instructions: To take with 3.125mg tab for dose of 9.375 BID for AFib and HTN lamotrigine [Lamictal] 100 mg tablet 100 mg PO BID Qty: 180 3RF Label Comments: 06/15/19-unable to verify meds, pt left drug list at home and does not know meds/doses. Rx Instructions: atorvastatin 40 mg tablet 40 mg PO DAILY Qty: 90 3RF Label Comments: 06/15/19-unable to verify meds, pt left drug list at home and does not know meds/doses. citalopram 20 mg tablet 20 mg PO QHS Qty: 90 3RF Rx Instructions: Depression & anxiety omeprazole 20 mg tablet,delayed release (DR/EC) 20 mg PO .every other day Qty: 45 3RF Rx Instructions: To take every other day for atypical chest pain/heartburn gabapentin 300 mg capsule See Rx Instructions .ROUTE .COMPLEX Qty: 360 3RF Dose Instruction: TAKE ONE CAPSULE BY MOUTH EVERY MORNING AND TAKE 1 CAPSULE EVERY AFTERNOON AND TAKE 2 CAPSULES EVERY NIGHT AT BEDTIME FOR NEUROPATHIC PAIN Rx Instructions: TAKE ONE CAPSULE BY MOUTH EVERY MORNING AND TAKE 1 CAPSULE EVERY AFTERNOON AND TAKE 2 CAPSULES EVERY NIGHT AT BEDTIME FOR NEUROPATHIC PAIN acetaminophen [Tylenol] 325 MG tablet 650 mg PO Q4H PRN PRNQty: 0 0RF Held Eliquis 5 mg tablet 5 mg PO BID Qty: 180 3RF Hold Instructions: Resume on 07/13/22. Label Comments: 06/15/19-unable to verify meds, pt left drug list at home and does not know meds/doses. Rx Instructions: anticoagulation for atrial fibrillation Discharge Instructions Additional Instructions: Please apply erythromycin ointment 0.5 inch ribbon to left eye 4 times a day for the next 1 week. Please follow-up with [facility] eye career and guidance counselor. Call tomorrow. Please contact your primary care physician to arrange follow-up. Return to the ER immediately for any worsening or new concerning symptoms. Referrals: [facility] [Outside] Linn Paulino NP [Primary Care Provider] - Discharge Data Discharge Date/Time-TO BE ENTERED AT DEPARTURE: 07/12/22 15:35 Medical Decision Making 82-year-old female here with direct trauma to her left eye, bolus subconjunctival hemorrhage on exam. Patient does note blurring of vision left eye. Visual acuity was performed by nursing and OS 20/200, OD 20/400. Consider globe rupture, acute orbital fracture versus retro-orbital hematoma. Plan to obtain CT of the orbit -- CT of the orbit was interpreted by radiology I spoke with radiologist interpreting and he notes: No fracture, no retro-orbital hematoma, no globe rupture. Tetracaine was applied to the eye and fluorescein applied and examined under Ryder lamp. Tiny superficial corneal abrasion noted. Plan to initiate treatment with erythromycin. I will the patient follow-up with [facility] eye tomorrow. HPI General Mode of arrival: ambulatory . Date/Time Provider Initiated Documentation: 07/12/22 13:12 . Limitations to Documentation: no limitations . Information obtained by: patient . HPI Narrative: 82-year-old female presents with chief complaint of eye injury. Patient notes this morning sometime around 10 AM her dog accidentally caught her in the left eye. She has subsequently developed redness of the eye with associated discomfort described as a moderate ache and associated blurred vision. She denies associated headache. Injury sustained. Related Data Home Medications Medication Instructions Recorded Confirmed acetaminophen 325 mg tablet 650 mg PO Q4H PRN PRN #0 tabs 01/15/16 07/12/22 (Tylenol) cyanocobalamin (vitamin B-12) 1,000 mcg PO DAILY #90 tab-caps 02/10/16 07/12/22 1,000 mcg tablet cholecalciferol (vitamin D3) 25 1,000 unit PO BID 10/05/16 07/12/22 mcg (1,000 unit) capsule (Vitamin D3) zoledronic acid 5 mg/100 mL in See Rx Instructions IV .once per 06/23/21 07/12/22 mannitol 5 %-water intravenous year #100 mL piggybck (Reclast) carvedilol 3.125 mg tablet 3.125 mg PO BID #180 tabs 07/30/21 07/12/22 carvedilol 6.25 mg tablet 6.25 mg PO BID #180 tabs 07/30/21 07/12/22 lamotrigine 100 mg tablet 100 mg PO BID #180 tab-caps 08/14/21 07/12/22 (Lamictal) atorvastatin 40 mg tablet 40 mg PO DAILY #90 tabs 09/15/21 07/12/22 citalopram 20 mg tablet 20 mg PO QHS #90 tabs 09/15/21 07/12/22 amlodipine 2.5 mg tablet See Rx Instructions PO DAILY #360 10/08/21 07/12/22 tabs apixaban 5 mg tablet (Eliquis) 5 mg PO BID #180 tabs 10/08/21 07/12/22 losartan 50 mg tablet 50 mg PO BID #180 tabs 12/10/21 07/12/22 omeprazole 20 mg tablet,delayed 20 mg PO .every other day #45 tabs 12/15/21 07/12/22 release lidocaine 5 % topical patch 1 patch topical DAILY PRN 01/09/22 07/12/22 compression fracture pain #30 ea gabapentin 300 mg capsule See Rx Instructions .Route 03/18/22 07/12/22 .COMPLEX #360 caps nystatin 100,000 unit/gram topical 1 applic topical BID PRN robin 04/06/22 07/12/22 cream rash #15 grams lorazepam 0.5 mg tablet 0.5 mg PO DAILY PRN acute anxiety 04/07/22 07/12/22 #28 tabs nitroglycerin 0.4 mg sublingual 0.4 mg sublingual Q5 MIN PRN X3 04/15/22 07/12/22 tablet (Nitrostat) PRN chest pain #20 tabs mupirocin 2 % topical ointment 1 applic topical BID #15 grams 05/13/22 07/12/22 lorazepam 0.5 mg tablet 0.5 mg PO DAILY PRN Panic attack 05/18/22 07/12/22 #10 tabs valacyclovir 1 gram tablet 1,000 mg PO Q12H #30 tabs 05/18/22 07/12/22 (Valtrex) L. acidophilus/Bifid. animalis PO DAILY 06/17/22 06/17/22 [Daily Probiotic] blood sugar diagnostic (Blood #100 ea 06/17/22 06/17/22 Glucose Test strips) blood-glucose meter #1 ea 06/17/22 06/17/22 lancets #100 ea 06/17/22 06/17/22 Previous Rx's Medication Instructions Recorded acetaminophen 325 mg tablet 650 mg PO Q4H PRN PRN #0 tabs 01/15/16 (Tylenol) zoledronic acid 5 mg/100 mL in See Rx Instructions IV .once per 06/23/21 mannitol 5 %-water intravenous year #100 mL piggybck (Reclast) carvedilol 3.125 mg tablet 3.125 mg PO BID #180 tabs 07/30/21 carvedilol 6.25 mg tablet 6.25 mg PO BID #180 tabs 07/30/21 lamotrigine 100 mg tablet 100 mg PO BID #180 tab-caps 08/14/21 (Lamictal) atorvastatin 40 mg tablet 40 mg PO DAILY #90 tabs 09/15/21 citalopram 20 mg tablet 20 mg PO QHS #90 tabs 09/15/21 amlodipine 2.5 mg tablet See Rx Instructions PO DAILY #360 10/08/21 tabs apixaban 5 mg tablet (Eliquis) 5 mg PO BID #180 tabs 10/08/21 losartan 50 mg tablet 50 mg PO BID #180 tabs 12/10/21 omeprazole 20 mg tablet,delayed 20 mg PO .every other day #45 tabs 12/15/21 release lidocaine 5 % topical patch 1 patch topical DAILY PRN 01/09/22 compression fracture pain #30 ea gabapentin 300 mg capsule See Rx Instructions .Route 03/18/22 .COMPLEX #360 caps nystatin 100,000 unit/gram topical 1 applic topical BID PRN robin 04/06/22 cream rash #15 grams lorazepam 0.5 mg tablet 0.5 mg PO DAILY PRN acute anxiety 04/07/22 #28 tabs nitroglycerin 0.4 mg sublingual 0.4 mg sublingual Q5 MIN PRN X3 04/15/22 tablet (Nitrostat) PRN chest pain #20 tabs mupirocin 2 % topical ointment 1 applic topical BID #15 grams 05/13/22 lorazepam 0.5 mg tablet 0.5 mg PO DAILY PRN Panic attack 05/18/22 #10 tabs valacyclovir 1 gram tablet 1,000 mg PO Q12H #30 tabs 05/18/22 (Valtrex) blood sugar diagnostic (Blood #100 ea 06/17/22 Glucose Test strips) blood-glucose meter #1 ea 06/17/22 lancets #100 ea 06/17/22 Allergies Allergy/AdvReac Type Severity Reaction Status Date / Time nifedipine Allergy Mild Hives Verified 07/12/22 13:04 amiodarone AdvReac Severe tremor Verified 07/12/22 13:04 oxycodone AdvReac Severe heavy Verified 07/12/22 13:04 sedation amoxicillin AdvReac Intermediate sore Verified 07/12/22 13:04 burning mouth Anesthetics - Amide Type - AdvReac Intermediate anxious Verified 07/12/22 13:04 Select A [Anesthetics - Amide Type] diazepam AdvReac Intermediate Agitation Verified 07/12/22 13:04 indomethacin AdvReac Intermediate headache, Verified 07/12/22 13:04 flush metformin AdvReac Intermediate Diarrhea Verified 07/12/22 13:04 General Stated Complaint: EyeProblem ANASTACIA: 4 Review of Systems Constitutional Constitutional: Denies fever(s) and Denies headache(s) Eyes Eyes: Reports as per HPI ENT Ears, Nose, Mouth, and Throat: Denies headache(s) Neurologic Neurologic: Denies headache(s) PFSH All Active Problems (Updated 07/12/22 @ 15:11 by Steven Hart MD) Subconjunctival hemorrhage, traumatic (Acute) Corneal abrasion (Acute) 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 h/o ECT treatment x1 (per Liliana very effective) b. formerly followed by Chauncey Gracia NP c. On multiple medications d. h/o psychiatric hospitalizations for reported bipolar e. h/o suicide attempts Retinal dot hemorrhage of both eyes (Acute ~10/2019) 08/15/2019 Dr Aliza Eng Osteoporosis (Chronic) See 10/2018 CT T11 compression fracture 2016 DEXA osteopenia [id number]: Boniva x2, which she tolerated, thus switching to Reclast (better outcome data) ASCVD (arteriosclerotic cardiovascular disease) (Chronic) cardiac cath Essential tremor (Chronic 04/02/08) R > L, EVAL PRICE 2008; MOWCHUN [id number]; responds to low dose propranolol Hyperlipidemia (Chronic 08/17/11) Crestor switched to Atorvastatin per ins Generalized atherosclerosis (Chronic 08/17/11) H/O CABG 1993; Cath 11/2015: all three grafts open; EF 60%; JUANPABLO 02/2015 EF 55% Gouty arthropathy, unspecified (Chronic 08/17/11) Essential hypertension (Chronic 08/17/11) Diabetic neuropathy (Chronic 03/07/15) Dr Rbobins DM type 2, controlled, with complication (Chronic) complications: neuropathy, cardiovascular disease Chronic nonalcoholic liver disease (Chronic 08/17/11) Chronic kidney disease, stage III (moderate) (Chronic 08/17/11) Coronary artery disease (Chronic) a. inferior SD 1984 b. SD with CABG 1992 Patient is doing well with no chest pain. Continue on current medications. 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) Apixaban for AF GERD (gastroesophageal reflux disease) (Chronic) Severe anxiety with panic (Chronic) L-T BZD Rx Medical History Caregiver burden ; 02/2022 Chest pain Chronic atrial fibrillation (11/19/15) s/p Ablation 02/2016 Chronic fatigue syndrome Chronic pain Back; L-T Tramadol RX (which was discont 2018); h/o compression fractures Diarrhea [facility] GI 2019; Kefir & Psyllium husk help Fracture of rib of right side (08/26/15) Fracture of right shoulder (08/26/15) Frequent falls (04/05/17) Hematoma Hypokalemia Mid back pain compression fx Primary osteoarthritis of right knee (08/24/16) Prolonged ND interval Sleeping difficulty (07/01/15) Improved on Mirtaz 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 declined ablation at [facility] Patient's dual-chamber pacemaker is functioning normally with ample generator life remaining. She has had no further PAF episodes noted. Her presenting rhythm is atrial pacing and underlying rhythm is sinus bradycardia. No reprogramming needed. She does not use remote monitoring. Trigger finger, left middle finger Trigger finger, left ring finger Trigger finger, right ring finger Unexplained weight loss GI work-up NEG; Mirtaz helped Surgical History Ablation for A Fib (03/10/16) Catheter ablatioin for A Flutter and catheter ablatiion for A Fib; [facility] Dr David King cardiac catheterization (11/27/14) 3 vessel disease, occluded, Grafts: mammary artery and 2 venous grafts are all open. cardioversion (07/20/14) Dr Garcia, [facility] Extraction of cataract (11/11/15) L cataract Jayme Hickman cataract-Dr Hutson H/O surgical procedure a. left cataract surgery b. Duane fundoplication c. carpal tunnel syndrome d. bilateral tubal ligation e. hysterectomy f. arthroscopy left knee 09/2011 g. s/p breast reduction History of hysterectomy Pacemaker (09/05/15) [facility], [place] DUAL CHAMBER Replacement of total knee joint (09/14/11) CELESTE LEFT TKA Trigger Finger release R 4th digit Family History Mother , perf ulcer at age 78. Hip fracture mother from complications of hip fracture Father , stroke at age 80. No problems noted. Sister No problems noted. Social History Smoking/Tobacco Use Status: Never Second Hand Exposure: No Smoking risk assessment performed?: Yes Alcohol Intake: never Drug use: Never Substance use type: does not use Adopted: No (raised by Aunt and Uncle) Caregiver/Support person: Yes (youngest daughter: Jacquelyn Chavira is healthcare agent [phone]) Foster care: No Household members: spouse Housing: house Number of Children: 4 Current gender identity: female What is your relationship status?: Panel score (0-1 are the most socially isolated patients): 1 What type of physical activity do you participate in: additional Details: gardening, playing with dog Shasta/Tenriism: Mu-Ism Seatbelt use: always Drive intox or ride w/intox winch driver: No Water heater temp set <120 deg: Yes Working smoke detector in home: Yes Fire extinguisher in home: Yes Carbon monox detector in home: Yes Firearms in home: Yes Do you feel safe at home: Yes Do you feel safe in your relationship?: Yes History History 5 Para Hx # Term Pregnancies 4 Multiple births Hx # Pregnancies Ectopic pregnancies AB induced Hx Number of Living Children AB spontaneous Exam Const General: cooperative and no acute distress HENMT Head: normocephalic Face and sinus: tenderness on the left periorbital (lateral) Mouth: moist mucous membranes Eyes Conjunctivae: conjunctival abnormality left subconjunctival hemorrhage (bullous) Sclera: normal sclerae EOM: EOM intact bilaterally Resp Auscultation: clear to auscultation bilaterally, no rales, no rhonchi and no wheezes Cardio Jugular venous pressure: no JVD Rate: regular rate and not tachycardic Rhythm: regular rhythm Neuro General: patient alert, patient awake, patient oriented x3 and tone normal Course Vital Signs Vital signs: Vital Signs Temperature 37.1 C 07/12/22 13:02 Pulse 85 07/12/22 13:02 Respiratory Rate 16 07/12/22 13:02 Blood Pressure 146/71 H 07/12/22 13:02 Pulse Oximetry 94 07/12/22 13:02 Temperature 37.1 C 07/12/22 13:02 Pulse 85 07/12/22 13:02 Respiratory Rate 16 07/12/22 13:02 Respiratory Effort 07/12/22 13:08 Blood Pressure 146/71 H 07/12/22 13:02 Blood Pressure Position Sitting 07/12/22 13:02 Pulse Oximetry 94 07/12/22 13:02 Oxygen Delivery Method Room Air 07/12/22 13:02 Oxygen Flow Rate 0 07/12/22 13:02 Pain Level 5 07/12/22 13:02
--- NOTE | 2022-07-12 14:27 | DI.VRAD_ITS ---
PROCEDURE INFORMATION: Exam: CT Orbits Without Contrast Exam date and time: 07/12/2022 2:01 PM Age: 82 years old Clinical indication: Injury or trauma; Other: Trauma to lt eye; Bleeding/hemorrhage; Ocular (eye or eyeball); Left; Injury date: 07/12/2022 TECHNIQUE: Imaging protocol: Computed tomography of the orbits without contrast. Radiation optimization: All CT scans at this facility use at least one of these dose optimization techniques: automated exposure control; mA and/or kV adjustment per patient size (includes targeted exams where dose is matched to clinical indication); or iterative reconstruction. COMPARISON: CT HEAD FACIAL WO 03/25/2022 7:29 PM FINDINGS: Brain: Diffuse involutional changes of brain compatible with age. The nasal septum is midline. Paranasal sinuses: No air-fluid levels in the paranasal sinuses. Orbital cavities: Bilateral lens replacements. Bones/joints: Chronic appearing nasal bone deformities as before. No acute facial bone fracture. Soft tissues: Mild soft tissue swelling at the periorbital level on the left without large hematoma. IMPRESSION: No interval fracture. Dictated and Authenticated by: Hardeep Ann MD. Ordering:RENU Harris MD
[2022-07-12 14:29] VITALS: BP 135/64; PULSE 60; RESP 12; TEMP 36.9; O2SAT 95
[2022-07-12 15:22] VITALS: BP 144/61; PULSE 68; RESP 12; O2SAT 95
[2022-07-12 15:32] VITALS: BP 135/99; PULSE 60; RESP 20; TEMP 36.7; O2SAT 95
[2022-07-12] MEDS: Erythromycin Ophth Oint 3.5 GM TUBE OS (15:32)
[2022-07-12] MEDS: Fluorescein STRIPS 100/BOX 1 MG OP (15:34)
[2022-07-12] MEDS: Tetracaine 0.5% 4 ML BTL OP (15:34)
== END 2022-07-12 15:35 | disposition home or self-care (01) ==
PROVIDERS: Emergency Provider Student in an Organized Health Care Education/Training Program; PCP Nurse Practitioner Adult Health
DX: S05.02XA Injury of conjunctiva and corneal abrasion without foreign body, left eye, initial encounter (principal); H11.32 Conjunctival hemorrhage, left eye; W54.1XXA Struck by dog, initial encounter; Y99.8 Other external cause status
CPT/HCPCS: 99284; 70480

== ENCOUNTER 2022-08-03 15:28 | Outpatient (REF) | payer MEDICARE, SELFPAY | END 2022-08-03 15:29 | disposition home or self-care (01) | LOC: LBN 15:28 | PROVIDERS: PCP Nurse Practitioner Adult Health; Referring Provider Nurse Practitioner; Visit Provider Nurse Practitioner | DX: R30.0 Dysuria (principal) | CPT/HCPCS: 87086 ==

== ENCOUNTER → 2022-10-12 13:14 | Outpatient (BNVA) | payer MEDICARE, BC, SELFPAY | PROVIDERS: PCP Nurse Practitioner Adult Health; Visit Provider Internal Medicine Cardiovascular Disease | DX: I48.91 Unspecified atrial fibrillation (principal); Z79.01 Long term (current) use of anticoagulants; I25.10 Atherosclerotic heart disease of native coronary artery without angina pectoris; Z95.828 Presence of other vascular implants and grafts; Z95.0 Presence of cardiac pacemaker | CPT/HCPCS: 99214 ==

== ENCOUNTER 2022-12-18 02:09 | Outpatient (CLI) | payer MEDICARE, SELFPAY ==
[2022-12-18 11:16] LABS: Hemoglobin A1C 6.5 % (<5.7)
[2022-12-18 11:40] LABS: Anion Gap 5.9 mmol/L (3-11); BUN 17 mg/dL (7-18); CO2 29.1 mmol/L (21.0-32.0); CREATININE 0.9 mg/dL (0.55-1.02); Calcium 9.8 mg/dL (8.5-10.1); Calculated LDL 60 mg/dL (<100); Chloride 105 mmol/L (98-107); Cholesterol 142 mg/dL (<200); Estimated GFR 64.63 (mL/min/1.73m2); Glucose 146 mg/dL (74-106); HDL Cholesterol 59 mg/dL (40-60); Potassium 3.9 mmol/L (3.5-5.1); Sodium 140 mmol/L (136-145); Triglyceride 115 mg/dL (<150)
[2022-12-18 13:54] LABS: Vitamin D 25 Total 56.6 ng/mL (30-100)
== END 2022-12-18 02:10 | disposition home or self-care (01) ==
LOC: LBO 02:10
PROVIDERS: PCP Nurse Practitioner Adult Health; Visit Provider Nurse Practitioner Adult Health
DX: F41.1 Generalized anxiety disorder (principal); I10 Essential (primary) hypertension; E11.8 Type 2 diabetes mellitus with unspecified complications; M81.0 Age-related osteoporosis without current pathological fracture; I65.21 Occlusion and stenosis of right carotid artery
CPT/HCPCS: 36415; 80048; 80061; 82306; 83036

== ENCOUNTER 2023-01-08 00:19 | Outpatient (CLI) | payer MEDICARE, BC, SELFPAY ==
--- NOTE | 2023-01-08 13:06 | DI.US_ITS ---
APPROVED REPORT EXAM: Comprehensive 2D, Doppler, and color-flow Echocardiogram Patient Location: Out-Patient Structural Architect: Leydi Elizabeth RDCS (AE) Indications: H/O Mitral Regurgitation, murmur, CAD, Pacemaker Other Information Study Quality: Adequate Conclusion Normal left ventricular chamber size. Borderline concentric left ventricular hypertrophy. Ejection fraction is 55%. Wall motion is normal Normal right ventricular size and systolic function Left atrium is moderately dilated. Right atrium is borderline dilated Device lead noted in the right heart Aortic valve is sclerotic and trileaflet with mild regurgitation Mild mitral regurgitation, mitral annular calcification Estimated right ventricular systolic pressure is 27 mmHg Mildly dilated ascending aorta 3.73 cm Wall motion Left Ventricle The left ventricle is normal size. The left ventricular systolic function is normal. The left ventric ular ejection fraction is within the normal range. Borderline concentric left ventricular hypertrophy . There is normal LV segmental wall motion. There is no ventricular septal defect visualized. LVEF is 55%. Right Ventricle The right ventricle is normal size. The right ventricular systolic function is normal. The RVSP is 27 .4_ mmHg. Pacemaker lead is present in the right ventricle. Atria Left atrium is moderately dilated. Right atrium is borderline dilated. The interatrial septum is inta ct with no evidence for an atrial septal defect. Aortic Valve The Aortic valve is sclerotic. Aortic valve is trileaflet. There is no aortic valvular stenosis. Mil d aortic regurgitation. Mitral Valve Mild mitral annular calcification. No evidence of mitral valve stenosis. Mild mitral regurgitation. Tricuspid Valve The tricuspid valve is normal in structure. There is no tricuspid valve stenosis. Trace tricuspid reg urgitation. Pulmonic Valve The pulmonary valve is normal in structure. There is no pulmonic valvular stenosis. Trace pulmonic re gurgitation. Great Vessels The aortic root is normal in size. The ascending aorta is mildly dilated. Aortic arch is not well vis ualized. IVC is normal in size and collapses >50% with inspiration. Pericardium There is no pericardial effusion. 2D Dimensions IVSD d PLAX 1.00 cm F: 0.6-1.0 LV Vol A2C d MOD 125.7 mL LVPW d PLAX 1.06 cm F: 0.6 - 1.0 LV Vol A4C d MOD 80.4 mL LVID d PLAX 4.37 cm F: 3.8 - 5.2 LA vol/ BSA A2C s A-L 47.7 mL/m2 LVDs 3.05 cm F: 2.2 - 3.5 LA vol/ BSA A4C s A-L 31.1 mL/m2 Ao Root d 3.05 cm F: 2.7 - 3.3 LA Vol/ BSA Biplane s A-L 40.4 mL/m2 RA Area A4C 13.33 cm2 LA Area A4C s MOD 18.20 cm2 RA Vol/ BSA A4C s A-L 20.3 mL/m2 LA Area A2C s MOD 23.60 cm2 Ao Asc Diam d 3.73 cm F: 2.3 - 3.1 LV EF A4C MOD 55.1 % LV EF Teichholz 56.3 % LV EF A2C MOD 52.2 % LVEF (Proctor's) 50.08 % F: 54 - 74 LV EF Biplane MOD 50.1 % LV Volume 83.47 mL F: 46 - 106 SV 51.80 mL LV Volume Index 51.20 mL/m2 F: 29 - 61 SV Index 31.81 mL/m2 LV Vol Biplane MOD 103.4 mL FS 29.20 % M-Mode TAPSE 1.12 cm (M/F) >1.7 LV Diastology MV E' medial 0.042 (>0.07 m/s) E/A Ratio 1.9 LV E/e MED 17.65 (<14) MV E Vmax 0.75 (0.4-1.3 m/s) MV E' lateral 0.070 (>0.1 m/s) MV A Vmax 0.40 (0.4-1.3 m/s) LV E/e LAT 10.65 (<14) MV E/A Ratio 1.69 MV E/E' medial 17.69 MV E/E' lateral 10.70 Aortic Valve LVOT Area 2.93 cm2 AoV Area Vmax 1.34 cm2 LVOT Vmax 0.89 m/s AoV Area/ BSA (Vmax) 0.82 cm2/m2 LVOT Mean Lei. 0.60 m/s PEYTON Mean Lei. 1.33 cm2 LVOT Peak Grad 3.1 mmHg PEYTON Mean Lei. Index 0.82 cm2/m2 LVOT Mean Grad 1.7 mmHg AR DT 1851 msec LVOT VTI 0.221 m AR PHT 537 msec LVOT Diam s 1.90 cm AoV Vmax 1.94 m/s Velocity Ratio 0.46 AoV Mean Lei. 1.33 m/s AoV Peak Grad 15.0 mmHg LVOT SV 64.76 mL AoV Mean Grad 8.2 mmHg AoV VTI 0.407 m AoV Area VTI 1.59 cm2 AoV Area/ BSA (VTI) 0.98 cm/m2 Mitral Valve MV DT 193 (160-240 msec) MR Vmax 5.28 m/s MV PHT 56 msec MR VTI 1.913 m MV Area PHT 3.92 cm2 MR Peak Grad 111.5 mmHg MV VTI 0.258 m MR Mean Grad 71.8 mmHg MV VTI Annulus 0.254 m MV Area VTI 2.47 (4.0-6.0 cm2) Pulmonary Valve PV Vmax 0.90 (0.5-1.5 m/s) RVOT Peak Gr. 2.40 mmHg PV Peak Grad 3.2 mmHg RVOT Mean Gr. 1.25 mmHg PV Mean Grad 1.7 mmHg RVOT VTI 0.175 m PV VTI 0.197 m RVOT Vmax 0.78 m/s Tricuspid Valve TR Peak Grad 24.3 mmHg TR Vmax 2.47 m/s RA Pressure 3.00 mmHg RVSP (TR) 27.4 mmHg
== END 2023-01-08 00:39 ==
PROVIDERS: PCP Nurse Practitioner Adult Health; Visit Provider Nurse Practitioner Adult Health
DX: I34.0 Nonrheumatic mitral (valve) insufficiency (principal)
CPT/HCPCS: 93306

== ENCOUNTER 2023-03-04 12:02 | Emergency (ER) | payer MEDICARE, BC, SELFPAY ==
[2023-03-04 12:22] VITALS: BP 124/87; PULSE 62; RESP 19; TEMP 37.1; O2SAT 97
--- NOTE | 2023-03-04 14:45 | DI.RAD_ITS ---
Exam(s) XR LUMBAR SPINE COMPLETE EXAM: XR LUMBAR SPINE COMPLETE CLINICAL HISTORY: pain. TECHNIQUE: 2D digital imaging was performed. COMPARISON: CR XR DEXA BONE DENSITY W/WO RUPA from 02/04/2021 FINDINGS: Five views. There is no evidence fracture, prominent listhesis, or pars defects.. There is minimal joint space n arrowing. Minimal anterolisthesis L5 upon S1 related to facet arthropathy. Significant facet degenerative chapin ges noted in the lower 2 levels. No osseous lesions. Bone density is age-appropriate. Vascular calcifications noted in the abdominal aorta and splenic artery. IMPRESSION: Mild findings as above. No fractures. DATA REPOSITORY: RADIATION DOSE DELIVERED:
--- NOTE | 2023-03-04 14:45 | DI.RAD_ITS ---
Exam(s) XR FEMUR RT EXAM: XR FEMUR RT CLINICAL HISTORY: pain. TECHNIQUE: 2D digital imaging was performed. COMPARISON: CR,XR XR FEMUR RT from 03/25/2022 FINDINGS: 3 views No evidence of femur nor hip fracture. Minimal if any significant degenerative changes evident in th e hip. Mild degenerative changes in the medial compartment of the knee. Bone density normal. There are no osseous lesions in the femur. There is no evidence of knee joint effusion. Some vascular ca lcifications incidentally noted the femoral artery. IMPRESSION: No acute osseous findings in the femur. DATA REPOSITORY: RADIATION DOSE DELIVERED:
--- NOTE | 2023-03-04 14:45 | DI.RAD_ITS ---
Exam(s) XR PELVIS AP EXAM: XR PELVIS AP CLINICAL HISTORY: pain lateral and posterior. TECHNIQUE: 2D digital imaging was performed. COMPARISON: CR,XR XR PELVIS AP from 03/25/2022 FINDINGS: Single view. No evidence of pelvic nor hip fracture. No osseous lesions. Bone density normal. No obvious degene rative changes. IMPRESSION: No acute osseous findings. DATA REPOSITORY: RADIATION DOSE DELIVERED:
--- NOTE | 2023-03-04 16:24 | ED.GENADUL_ITS ---
Discharge Plan Disposition Patient Disposition: Home Condition: Stable Discharge Details Clinical Impression: Lumbar radiculopathy, Acute pain of right hip Primary Care Provider: Linn Paulino ED Provider: Steven Hart Home Meds and New Rx's Prescriptions: Continued zoledronic usbe-owlvwwso-jieyc [Reclast] 5 mg/100 mL piggyback See Rx Instructions IV .once per year Qty: 100 0RF Rx Instructions: 100mL IV .once per year; administer over at least 15 mins mupirocin 2 % ointment 1 applic topical BID Qty: 15 1RF Rx Instructions: May substitute with cream if less expensive; apply thin layer to corners of the mouth until area/lesion resolved amlodipine 2.5 mg tablet See Rx Instructions PO DAILY Qty: 360 3RF Rx Instructions: 2.5mg AM, 5mg PM PO daily; High blood pressure or as directed (dosed changed 10/09/2020) losartan 50 mg tablet 50 mg PO BID Qty: 180 3RF Rx Instructions: Blood pressure lorazepam 0.5 mg tablet 0.5 mg PO DAILY MDD 1mg/24h PRN (Reason: acute anxiety) Qty: 30 5RF Rx Instructions: acute anxiety/panic/grief nitroglycerin [Nitrostat] 0.4 mg tablet, sublingual 0.4 mg Sublingual Q5 MIN PRN X3 PRN (Reason: chest pain) Qty: 20 1RF Patient Comments: 06/15/19-unable to verify meds, pt left drug list at home and does not know meds/doses. Rx Instructions: Q5min, x3 max, PRN chest pressure L. acidophilus/Bifid. animalis [Daily Probiotic] PO DAILY (DME) blood-glucose meter Misc See Rx Instructions .MEDSUPPLY Qty: 1 0RF Rx Instructions: As directed to check blood glucose daily. No insulin. Dispense covered brand. (DME) Blood Glucose Test Strip See Rx Instructions .MEDSUPPLY Qty: 100 3RF Rx Instructions: As directed to check blood glucose daily. No insulin. Dispense covered brand. (DME) lancets Misc See Rx Instructions .MEDSUPPLY Qty: 100 3RF Rx Instructions: As directed to check blood glucose daily. No insulin. Dispense covered brand. nystatin 100,000 unit/gram cream 1 applic TP BID PRN (Reason: robin rash) Qty: 30 0RF Rx Instructions: Apply to affected area on abdomen lidocaine 5 % adhesive patch,medicated 1 patch topical DAILY PRN (Reason: compression fracture pain) Qty: 30 2RF Rx Instructions: leave on most painful area for 12 hrs, then remove for compression fracture or right arm pain; may cut to size omeprazole 20 mg tablet,delayed release (DR/EC) 20 mg PO .every other day MDD 20mg/24h Qty: 45 3RF Rx Instructions: Take on empty stomach every other day for atypical chest pain/heartburn cyanocobalamin (vitamin B-12) 1,000 MCG tablet 1,000 mcg PO DAILY Qty: 90 Patient Comments: 06/15/19-unable to verify meds, pt left drug list at home and does not know meds/doses. cholecalciferol (vitamin D3) [Vitamin D3] 1,000 UNIT capsule 1,000 unit PO BID Patient Comments: 06/15/19-unable to verify meds, pt left drug list at home and does not know meds/doses. carvedilol 6.25 mg tablet See Rx Instructions .ROUTE .COMPLEX Qty: 180 3RF Dose Instruction: TAKE 1 TABLET BY MOUTH TWO TIMES A DAY WITH 3.125MG TABLET Rx Instructions: TAKE 1 TABLET BY MOUTH TWO TIMES A DAY WITH 3.125MG TABLET lamotrigine 100 mg tablet See Rx Instructions .ROUTE .COMPLEX Qty: 180 3RF Dose Instruction: TAKE ONE TABLET BY MOUTH TWICE A DAY Rx Instructions: TAKE ONE TABLET BY MOUTH TWICE A DAY citalopram 20 mg tablet 20 mg PO QHS Qty: 90 3RF Rx Instructions: Depression & anxiety atorvastatin 40 mg tablet See Rx Instructions .ROUTE .COMPLEX Qty: 90 3RF Dose Instruction: TAKE ONE TABLET BY MOUTH EVERY DAY Rx Instructions: TAKE ONE TABLET BY MOUTH EVERY DAY carvedilol 3.125 mg tablet 3.125 mg PO BID Qty: 180 3RF Rx Instructions: To take with 6.25mg tab for total dose of 9.375 BID for AFib and HTN Eliquis 5 mg tablet 5 mg PO BID Qty: 180 3RF Hold Instructions: Resume on 07/13/22. Patient Comments: 06/15/19-unable to verify meds, pt left drug list at home and does not know meds/doses. Rx Instructions: anticoagulation for atrial fibrillation gabapentin 300 mg capsule See Rx Instructions .ROUTE .COMPLEX Qty: 360 3RF Dose Instruction: TAKE ONE CAPSULE BY MOUTH EVERY MORNING AND TAKE 1 CAPSULE EVERY AFTERNOON AND TAKE 2 CAPSULES EVERY NIGHT AT BEDTIME FOR NEUROPATHIC PAIN Rx Instructions: TAKE ONE CAPSULE BY MOUTH EVERY MORNING AND TAKE 1 CAPSULE EVERY AFTERNOON AND TAKE 2 CAPSULES EVERY NIGHT AT BEDTIME FOR NEUROPATHIC PAIN acetaminophen [Tylenol] 325 MG tablet 650 mg PO Q4H PRN PRNQty: 0 0RF Discharge Instructions Instructions: Fall Prevention for Older Adults (ED), Lumbar Radiculopathy (ED) Additional Instructions: Avoid activities that worsen pain. Please take acetaminophen (tylenol) - 650mg every 6 hours by mouth as needed for pain. Please contact your primary care physician to arrange follow-up. Return to the ER immediately for any worsening or new concerning symptoms. Stand Alone Forms: Physical Therapy Referral Referrals: Linn Paulino NP [Primary Care Provider] - Discharge Data Discharge Date/Time-TO BE ENTERED AT DEPARTURE: 03/04/23 16:39 Medical Decision Making 82-year-old female presents with chief complaint of right low back, buttock hip and lateral upper leg pain that started 1+ months ago and has persisted and worsened after fall from bed a couple days ago. Patient is neurovascular intact distally. Considered fracture. X-ray of the pelvis and left femur were interpreted by radiology as negative for acute orthopedic injury. I also obtained lumbar spine x-ray which was interpreted by radiology as:There is no evidence fracture, prominent listhesis, or pars defects..? There is minimal joint space narrowing. Minimal anterolisthesis L5 upon S1 related to facet arthropathy.? Significant facet degenerative changes noted in the lower 2 levels.? No osseous lesions.? Bone density is age-appropriate. Vascular calcifications noted in the abdominal aorta and splenic artery. Results were discussed with the patient. Discussed crutches and patient states that she does not need these and is able to ambulate. Suspect lumbar radiculopathy and IT strain. We will refer to PT for increasing mobility and foot to reduce pain. Usual customary discharge instructions reviewed with patient. HPI General Mode of arrival: ambulatory . Date/Time Provider Initiated Documentation: 03/04/23 12:27 . Limitations to Documentation: no limitations . Information obtained by: patient . HPI Narrative: 82-year-old female presents with chief complaint of right low back, buttock hip and lateral upper leg pain that started 1+ months ago and has persisted and worsened after fall from bed a couple days ago. Pain is described as an ache. No associated numbness or tingling. No focal weakness. Related Data Home Medications Medication Instructions Recorded Confirmed acetaminophen 325 mg tablet 650 mg PO Q4H PRN PRN #0 tabs 01/15/16 03/04/23 (Tylenol) cyanocobalamin (vitamin B-12) 1,000 mcg PO DAILY #90 tab-caps 02/10/16 03/04/23 1,000 mcg tablet cholecalciferol (vitamin D3) 25 1,000 unit PO BID 10/05/16 03/04/23 mcg (1,000 unit) capsule (Vitamin D3) zoledronic acid 5 mg/100 mL in See Rx Instructions IV .once per 06/23/21 03/04/23 mannitol 5 %-water intravenous year #100 mL piggybck (Reclast) nitroglycerin 0.4 mg sublingual 0.4 mg sublingual Q5 MIN PRN X3 04/15/22 03/04/23 tablet (Nitrostat) PRN chest pain #20 tabs mupirocin 2 % topical ointment 1 applic topical BID #15 grams 05/13/22 03/04/23 L. acidophilus/Bifid. animalis PO DAILY 06/17/22 02/24/23 [Daily Probiotic] blood sugar diagnostic (Blood #100 ea 06/17/22 02/24/23 Glucose Test strips) blood-glucose meter #1 ea 06/17/22 02/24/23 lancets #100 ea 06/17/22 02/24/23 carvedilol 6.25 mg tablet See Rx Instructions .Route 08/03/22 03/04/23 .COMPLEX #180 tabs lamotrigine 100 mg tablet See Rx Instructions .Route 08/21/22 03/04/23 .COMPLEX #180 tabs citalopram 20 mg tablet 20 mg PO QHS #90 tabs 09/10/22 03/04/23 atorvastatin 40 mg tablet See Rx Instructions .Route 09/21/22 03/04/23 .COMPLEX #90 tabs nystatin 100,000 unit/gram topical 1 applic topical BID PRN robin 09/25/22 03/04/23 cream rash #30 grams amlodipine 2.5 mg tablet See Rx Instructions PO DAILY #360 10/22/22 03/04/23 tabs lorazepam 0.5 mg tablet 0.5 mg PO DAILY PRN acute anxiety 10/22/22 03/04/23 #30 tabs losartan 50 mg tablet 50 mg PO BID #180 tabs 10/22/22 03/04/23 apixaban 5 mg tablet (Eliquis) 5 mg PO BID #180 tabs 10/27/22 03/04/23 carvedilol 3.125 mg tablet 3.125 mg PO BID #180 tabs 10/27/22 03/04/23 lidocaine 5 % topical patch 1 patch topical DAILY PRN 12/28/22 03/04/23 compression fracture pain #30 ea omeprazole 20 mg tablet,delayed 20 mg PO .every other day #45 tabs 02/24/23 03/04/23 release gabapentin 300 mg capsule See Rx Instructions .Route 03/03/23 03/04/23 .COMPLEX #360 caps Previous Rx's Medication Instructions Recorded acetaminophen 325 mg tablet 650 mg PO Q4H PRN PRN #0 tabs 01/15/16 (Tylenol) zoledronic acid 5 mg/100 mL in See Rx Instructions IV .once per 06/23/21 mannitol 5 %-water intravenous year #100 mL piggybck (Reclast) nitroglycerin 0.4 mg sublingual 0.4 mg sublingual Q5 MIN PRN X3 04/15/22 tablet (Nitrostat) PRN chest pain #20 tabs mupirocin 2 % topical ointment 1 applic topical BID #15 grams 05/13/22 blood sugar diagnostic (Blood #100 ea 06/17/22 Glucose Test strips) blood-glucose meter #1 ea 06/17/22 lancets #100 ea 06/17/22 carvedilol 6.25 mg tablet See Rx Instructions .Route 08/03/22 .COMPLEX #180 tabs lamotrigine 100 mg tablet See Rx Instructions .Route 08/21/22 .COMPLEX #180 tabs citalopram 20 mg tablet 20 mg PO QHS #90 tabs 09/10/22 atorvastatin 40 mg tablet See Rx Instructions .Route 09/21/22 .COMPLEX #90 tabs nystatin 100,000 unit/gram topical 1 applic topical BID PRN robin 09/25/22 cream rash #30 grams amlodipine 2.5 mg tablet See Rx Instructions PO DAILY #360 10/22/22 tabs lorazepam 0.5 mg tablet 0.5 mg PO DAILY PRN acute anxiety 10/22/22 #30 tabs losartan 50 mg tablet 50 mg PO BID #180 tabs 10/22/22 apixaban 5 mg tablet (Eliquis) 5 mg PO BID #180 tabs 10/27/22 carvedilol 3.125 mg tablet 3.125 mg PO BID #180 tabs 10/27/22 lidocaine 5 % topical patch 1 patch topical DAILY PRN 12/28/22 compression fracture pain #30 ea omeprazole 20 mg tablet,delayed 20 mg PO .every other day #45 tabs 02/24/23 release gabapentin 300 mg capsule See Rx Instructions .Route 03/03/23 .COMPLEX #360 caps Allergies Allergy/AdvReac Type Severity Reaction Status Date / Time nifedipine Allergy Mild Hives Verified 02/24/23 15:30 amiodarone AdvReac Severe tremor Verified 02/24/23 15:30 oxycodone AdvReac Severe heavy Verified 02/24/23 15:30 sedation amoxicillin AdvReac Intermediate sore Verified 02/24/23 15:30 burning mouth Anesthetics - Amide Type - AdvReac Intermediate anxious Verified 02/24/23 15:30 Select A [Anesthetics - Amide Type] diazepam AdvReac Intermediate Agitation Verified 02/24/23 15:30 indomethacin AdvReac Intermediate headache, Verified 02/24/23 15:30 flush metformin AdvReac Intermediate Diarrhea Verified 02/24/23 15:30 General Stated Complaint: Orthopedic ANASTACIA: 4 Review of Systems All systems reviewed & are unremarkable except as noted in HPI and below Constitutional Constitutional: Denies fever(s) Musculoskeletal Musculoskeletal: Reports as per HPI PFSH All Active Problems (Updated 03/04/23 @ 16:27 by Steven Hart MD) Lumbar radiculopathy (Acute) Acute pain of right hip (Acute) B12 deficiency (Acute) Mitral regurgitation (Chronic ~2021) 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 h/o ECT treatment x1 (per Liliana very effective) b. formerly followed by Chauncey Gracia NP c. On multiple medications d. h/o psychiatric hospitalizations for reported bipolar e. h/o suicide attempts Retinal dot hemorrhage of both eyes (Acute ~10/2019) 08/15/2019 Dr Aliza Eng Osteoporosis (Chronic) See 10/2018 CT T11 compression fracture 2016 DEXA osteopenia [id number]: Boniva x2, which she tolerated, thus switching to Reclast (better outcome data) ASCVD (arteriosclerotic cardiovascular disease) (Chronic) cardiac cath Essential tremor (Chronic 04/02/08) R > L, EVAL PRICE 2008; MOWCHUN [id number]; responds to low dose propranolol Hyperlipidemia (Chronic 08/17/11) Crestor switched to Atorvastatin per ins Generalized atherosclerosis (Chronic 08/17/11) H/O CABG 1993; Cath 11/2015: all three grafts open; EF 60%; JUANPABLO 02/2015 EF 55% Gouty arthropathy, unspecified (Chronic 08/17/11) Essential hypertension (Chronic 08/17/11) Diabetic neuropathy (Chronic 03/07/15) Dr Robbins DM type 2, controlled, with complication (Chronic) complications: neuropathy, cardiovascular disease Chronic nonalcoholic liver disease (Chronic 08/17/11) Chronic kidney disease, stage III (moderate) (Chronic 08/17/11) Coronary artery disease (Chronic) a. inferior NC 1984 b. NC with CABG 1992 Patient is doing well with no chest pain. Continue on current medications. 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) Apixaban for AF GERD (gastroesophageal reflux disease) (Chronic) Severe anxiety with panic (Chronic) L-T BZD Rx Medical History Caregiver burden ; 02/2022 Chest pain Chronic atrial fibrillation (11/19/15) s/p Ablation 02/2016 Chronic fatigue syndrome Chronic pain Back; L-T Tramadol RX (which was discont 2018); h/o compression fractures Diarrhea [facility] GI 2020; Kefir & Psyllium husk help Fracture of rib of right side (08/26/15) Fracture of right shoulder (08/26/15) Frequent falls (04/05/17) Hematoma Hypokalemia Mid back pain compression fx Primary osteoarthritis of right knee (08/24/16) Prolonged [place] interval Sleeping difficulty (07/01/15) Improved on Mirtaz 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 declined ablation at [facility] Patient's dual-chamber pacemaker is functioning normally with ample generator life remaining. She has had no further PAF episodes noted. Her presenting rhythm is atrial pacing and underlying rhythm is sinus bradycardia. No reprogramming needed. She does not use remote monitoring. Trigger finger, left middle finger Trigger finger, left ring finger Trigger finger, right ring finger Unexplained weight loss GI work-up NEG; Mirtaz helped Surgical History Ablation for A Fib (03/10/16) Catheter ablatioin for A Flutter and catheter ablatiion for A Fib; [facility] Dr David King cardiac catheterization (11/27/14) 3 vessel disease, occluded, Grafts: mammary artery and 2 venous grafts are all open. cardioversion (07/20/14) Dr Garcia, [facility] Extraction of cataract (11/11/15) L cataract Jayme R cataract-Dr Hutson H/O surgical procedure a. left cataract surgery b. Duane fundoplication c. carpal tunnel syndrome d. bilateral tubal ligation e. hysterectomy f. arthroscopy left knee 09/2011 g. s/p breast reduction History of hysterectomy Pacemaker (09/05/15) [facility], [employer] DUAL CHAMBER Replacement of total knee joint (09/14/11) CELESTE LEFT TKA Trigger Finger release R 4th digit Family History Mother , perf ulcer at age 78. Hip fracture mother from complications of hip fracture Father , stroke at age 80. No problems noted. Sister No problems noted. Social History Smoking/Tobacco Use Status: Never Second Hand Exposure: No Smoking risk assessment performed?: Yes Alcohol Intake: never Drug use: Never Substance use type: does not use Adopted: No (raised by Aunt and Uncle) Caregiver/Support person: Yes (youngest daughter: Jacquelyn Chavira is healthcare agent ph:[phone]) Foster care: No Household members: spouse Housing: house Number of Children: 4 Current gender identity: female What is your relationship status?: Panel score (0-1 are the most socially isolated patients): 1 What type of physical activity do you participate in: additional Details: gardening, playing with dog Shasta/Spiritism: Congregation Seatbelt use: always Drive intox or ride w/intox emt driver: No Water heater temp set <120 deg: Yes Working smoke detector in home: Yes Fire extinguisher in home: Yes Carbon monox detector in home: Yes Firearms in home: Yes Do you feel safe at home: Yes Do you feel safe in your relationship?: Yes History History 5 Para Hx # Term Pregnancies 4 Multiple births Hx # Pregnancies Ectopic pregnancies AB induced Hx Number of Living Children AB spontaneous Exam Const General: cooperative and no acute distress HENMT Mouth: moist mucous membranes Eyes Conjunctivae: normal conjunctivae Sclera: normal sclerae Neck Neck: trachea midline and supple Resp Auscultation: clear to auscultation bilaterally, no rales, no rhonchi and no wheezes Cardio Rate: regular rate and not tachycardic Rhythm: regular rhythm GI Palpation: soft, not firm, no guarding, no masses, not rigid and nontender Back/Spine/Pelvis Back: No erythema, No warmth and No ecchymosis Thoracic/Lumbar Spine: paraspinal tenderness (rt lumbar), No thoracic spinal tenderness and No lumbar spinal tenderness Skin General skin exam: no rashes or lesions noted Neuro General: patient alert, patient awake and tone normal Extrem General: no edema Right lower extremity: hip/thigh Details: tenderness Location: of the hip Location: laterally and posteriorly and normal ROM; no crepitus, no deformity and no unusual warmth Course Vital Signs Vital signs: Vital Signs Temperature 37.1 C 03/04/23 12:22 Pulse 62 03/04/23 12:22 Respiratory Rate 19 03/04/23 12:22 Blood Pressure 124/87 03/04/23 12:22 Pulse Oximetry 97 03/04/23 12:22 Temperature 37.1 C 03/04/23 12:22 Temperature Source Temporal Artery Scan 03/04/23 12:22 Pulse 62 03/04/23 12:22 Respiratory Rate 19 03/04/23 12:22 Blood Pressure 124/87 03/04/23 12:22 Blood Pressure Position Sitting 03/04/23 12:22 Pulse Oximetry 97 03/04/23 12:22 Oxygen Delivery Method Room Air 03/04/23 12:22 Oxygen Flow Rate 0 03/04/23 12:22 Pain Level 6 03/04/23 12:22
== END 2023-03-04 16:39 | disposition home or self-care (01) ==
PROVIDERS: Emergency Provider Student in an Organized Health Care Education/Training Program; PCP Nurse Practitioner Adult Health
DX: M25.551 Pain in right hip (principal); M54.50 Low back pain, unspecified; I10 Essential (primary) hypertension; I48.91 Unspecified atrial fibrillation; Z79.01 Long term (current) use of anticoagulants; Z95.0 Presence of cardiac pacemaker; Z79.899 Other long term (current) drug therapy
CPT/HCPCS: 73552; 99283; 72110; 72170

== ENCOUNTER 2023-03-28 18:59 | Observation (INO) | payer MEDICARE, BC, SELFPAY ==
[2023-03-28] VITALS (43 sets, daily range): BP systolic 100–151; BP diastolic 40–62; PULSE 58–75; RESP 11–19; TEMP 36.8; O2SAT 90–96
--- NOTE | 2023-03-28 19:00 | RT.EKG_ITS ---
APPROVED REPORT Exam: Resting ECG Reason for Exam: [facility] Patient Location: E HR:61 bpm ECG Measurements Heart Rate 61 AXIS ND 246 P [id number] QRSd 113 QRS 32 QT 416 T 147 QTc 419 Conclusion Atrial-paced complexes...other complexes also detected Prolonged ND interval...ND >220, V-rate 50- 90 Inferior infarct, old...Q >35mS, II III aVF Nonspecific T abnormalities, lateral leads...T <-0.10mV, I aVL V5 V6
--- NOTE | 2023-03-28 19:45 | DI.CT_ITS ---
Exam(s) CT HEAD WO EXAM: CT HEAD WO CLINICAL HISTORY: weakness. TECHNIQUE: Imaging Protocol: Axial computed tomography images with coronal and sagittal reformatted images were created and reviewed COMPARISON: CT CT ORBITS WO from 07/12/2022 FINDINGS: Ventricles and Extra axial spaces: Normal in size and morphology for the patient's age. Hemorrhage: None. Cerebral parenchyma: No evidence of acute infarct or mass. Atrophy, consistent with the patient's age . Mild white matter changes of small vessel disease. Midline shift: None. Brainstem/Cerebellum: Normal. Calvarium: Normal. Visualized Paranasal sinuses/Mastoids: Clear. Soft Tissues: Unremarkable. IMPRESSION: No acute intracranial process. RADIATION DOSE DELIVERED: 659.39mGy.cm Total DLP DATA REPOSITORY: All CT scans at this facility are submitted to the National Radiology Data Registry (NRDR) Dose Index Registry (DIR) with the [employer] (ACR). RADIATION OPTIMIZATION: All CT scans at this facility use at least one of these dose optimization te chniques: automated exposure control; mA and/or kV adjustment per patient size (includes targeted exa ms where dose is matched to clinical indication); or iterative reconstruction.
--- NOTE | 2023-03-28 20:00 | DI.RAD_ITS ---
Exam(s) XR CHEST 2V PA LATERAL EXAM: XR CHEST 2V PA LATERAL CLINICAL HISTORY: weakness TECHNIQUE: 2D digital imaging was performed. COMPARISON: CR XR RIBS LT PA CHEST 3V from 11/21/2021 FINDINGS: Leads overlie the chest. HEART: Mildly enlarged. Pacemaker. Sternal wires. Aorta: Not dilated. Calcification at arch. PULMONARY VASCULATURE: Normal. LUNGS: Clear. PLEURAL SPACE: No pleural effusion or pneumothorax. BONE:Unremarkable for age. IMPRESSION: No acute abnormality. DATA REPOSITORY: RADIATION DOSE DELIVERED:
[2023-03-28 20:32] LABS: Abs Immature Grans 0.04 10^3/uL (0.0-0.06); Absolute Basophil Count 0.02 10^3/uL (0.0-0.2); Absolute Eosinophil Count 0.07 10^3/uL (0.0-0.7); Absolute Monocyte Count 0.51 10^3/uL (0.1-0.8); Absolute Neutrophil Count 3.89 10^3/uL (1.2-6.7); Basophils % 0.3; Eosinophils % 1.2; HCT 41.9 % (36.0-46.0); HGB 14.3 g/dL (11.2-15.7); Immature Grans % 0.7; Lymphocytes % 22.3; MCH 33.2 pg (27.0-33.0); MCHC 34.1 % (32.0-36.0); MCV 97 fL (80-95); MPV 9.2 fL (8.0-11.0); Monocytes % 8.7; Neutrophils % 66.8; Platelet Count 118 10^3/uL (130-400); RBC 4.31 10^6/uL (3.93-5.22); RDW 12.5 % (11.7-14.6); WBC 5.83 10^3/uL (4.4-10.8)
[2023-03-28 20:33] LABS: Bilirubin Negative (Negative); Blood Small (Negative); Clarity Clear (Clear); Glucose Negative (Negative); Ketones Negative (Negative); Leukocyte Esterase Negative (Negative); Nitrite Negative (Negative); Urobilinogen 0.2 mg/dL (Up to 0.2); pH 5.5 (5-8)
[2023-03-28 20:34] LABS: Lactate 1.6 mmol/L (0.6-1.4)
[2023-03-28] MEDS: Lactated Ringers 1,000 ML 100 ML IV (20:39)
[2023-03-28 20:44] LABS: Bacteria Negative HPF (Negative); C & S Indicated? No; Crystals Negative HPF (Negative); Epithelial Cells Few HPF (Negative); Mucus Negative (Negative); Other Cells Negative (Negative); WBC 0-2 HPF (0-5)
--- NOTE | 2023-03-28 20:45 | DI.VRAD_ITS ---
PROCEDURE INFORMATION: Exam: XR Chest Exam date and time: 03/28/2023 8:18 PM Age: 83 years old Clinical indication: Other: Weakness; Prior surgery; Surgery date: 6+ months; Surgery type: Pacemaker TECHNIQUE: Imaging protocol: Radiologic exam of the chest. Views: 2 views. COMPARISON: CR XR RIBS LT PA CHEST 3V 11/21/2021 3:43 PM FINDINGS: Tubes, catheters and devices: Left chest dual lead pacemaker is stable. Lungs: No consolidation. No Mass Pleural spaces: No pleural effusion. No pneumothorax. Heart/Mediastinum: Stable cardiac silhouette. Vasculature: Calcifications of the aortic arch. Bones/joints: Median sternotomy wires are again noted. IMPRESSION: No acute cardiopulmonary disease Dictated and Authenticated by: Isrrael Pelaez MD. Ordering:NARENDRA Magdaleno MD
[2023-03-28 20:47] LABS: *AMPHETAMINES SCREEN URINE Negative (Negative); *BARBITURATES SCREEN URINE Negative (Negative); *BENZODIAZEPINES SCREEN URINE Negative (Negative); Cannabinoids THC Negative (Negative); Cocaine Screen,Urine Negative (Negative); METHADONE URINE SCREEN Negative (Negative); OPIATES URINE SCREEN Negative (Negative)
[2023-03-28 20:48] LABS: Tricyclic Antidepressants Negative (Negative)
--- NOTE | 2023-03-28 20:48 | DI.VRAD_ITS ---
PROCEDURE INFORMATION: Exam: CT Head Without Contrast Exam date and time: 03/28/2023 8:22 PM Age: 83 years old Clinical indication: Other: General weakness TECHNIQUE: Imaging protocol: Computed tomography of the head without contrast. Radiation optimization: All CT scans at this facility use at least one of these dose optimization techniques: automated exposure control; mA and/or kV adjustment per patient size (includes targeted exams where dose is matched to clinical indication); or iterative reconstruction. COMPARISON: CT HEAD FACIAL WO 03/25/2022 7:29 PM FINDINGS: Brain: Stable bilateral periventricular white matter hypodensity consistent with small-vessel ischemic change. No intracranial hemorrhage. No evidence of acute ischemia. No mass or mass effect. Cerebral ventricles: Ventricles and sulci are appropriate for age. Paranasal sinuses: Visualized sinuses are unremarkable. No fluid levels. Mastoid air cells: Visualized mastoid air cells are well aerated. Bones/joints: Unremarkable. No acute fracture. Soft tissues: Unremarkable. IMPRESSION: No acute intracranial abnormalities Dictated and Authenticated by: Isrrael Pelaez MD. Ordering:NARENDRA Magdaleno MD
[2023-03-28 20:55] LABS: ALT 30 U/L (14-59); AST 20 U/L (15-37); Albumin 3.7 g/dL (3.4-5.0); Alkaline Phosphatase 46 U/L (46-116); Anion Gap 8.9 mmol/L (3-11); BUN 33 mg/dL (7-18); Bilirubin, Total 0.7 mg/dL (0.2-1.0); CO2 28.1 mmol/L (21.0-32.0); CREATININE 1.7 mg/dL (0.55-1.02); Calcium 10.2 mg/dL (8.5-10.1); Chloride 100 mmol/L (98-107); ETHANOL BLOOD 4.5 mg/dL (<10); Estimated GFR 29.94 (mL/min/1.73m2); Glucose 120 mg/dL (74-106); Magnesium 2.2 mg/dL (1.8-2.4); Potassium 4.1 mmol/L (3.5-5.1); Sodium 137 mmol/L (136-145); Total Protein 7.5 g/dL (6.4-8.2); Troponin I < 50 ng/L (<or=60)
[2023-03-28] MEDS: Lactated Ringers 500 ML IV (21:08)
[2023-03-28 21:11] LABS: Procalcitonin 0.2 ng/mL
--- NOTE | 2023-03-28 22:02 | W.PM.HP.N ---
Date of service: 03/28/23 Time of Service: 22:02 Assessment and Plan Assessment and plan (1) Altered mental status: Start date: 03/28/23 Status: Acute Assessment and plan: This is an 83-year-old lady presenting with increased drowsiness at home and sleeping with decreased intake and appears to be acutely dehydrated. She has had this problem in the past. He recently had thrush and also had a shingles outbreak over her back. She was initiated on acyclovir which may have side effects of delirium the patient delirious is much as sleepy with operative status. She also was initiated on a statin oral suspension and is able to take at least clear fluids at this time. She had decreased oral intake for fluids and food because of her thrush. (2) Acute dehydration: Start date: 03/28/23 Status: Acute Assessment and plan: Patient's renal functions are elevated and she does have slight lactic acidosis which will be corrected with IV fluid resuscitation and follow-up labs in the morning. (3) Oral thrush: Start date: 03/28/23 Status: Acute Assessment and plan: Continue oral nystatin and symptomatic treatment. Encourage oral hydration. (4) Shingles: Start date: 03/26/23 Status: Acute Assessment and plan: Single lesion which is improving over left L1 dermatome near the spine only. Symptomatic care but discontinue acyclovir at this time. (5) DM type 2, controlled, with complication: Status: Chronic Assessment and plan: Patient is not on medical therapy of this problem at this time being diet controlled. Monitor glucometer measurements before meals and bedtime during this hospital stay with sensitive insulin sliding scale or coverage with short acting insulin if needed. (6) Chronic kidney disease, stage III (moderate): Status: Chronic Assessment and plan: Patient appears to have chronic kidney disease by history. Baseline creatinine recently was 0.9 and is elevated now to 1.7 with previous episodes of dehydration pushing creatinine up to as high as 2.4. IV hydration and follow-up labs in the morning. Qualifiers: Chronic kidney disease stage 3 subtype: unspecified whether 3a or 3b Qualified Code(s): N18.30 - Chronic kidney disease, stage 3 unspecified (7) Atrial fibrillation: Status: Chronic Assessment and plan: Patient has paced rhythm with baseline sinus rhythm and continues on Eliquis. She has had no evidence of bleeding CT scan of the head Ultracal status. Qualifiers: Atrial fibrillation type: unspecified Qualified Code(s): I48.91 - Unspecified atrial fibrillation (8) Lumbar radiculopathy: Status: Chronic Assessment and plan: Patient does have chronic pain and will continue medical management during hospital stay. (9) Coronary artery disease: Status: Chronic Assessment and plan: Status post CABG in the past with early heart disease beginning in her 40s. No recent event and no evidence of active disease presently. Continue outpatient medical therapy. Qualifiers: Associated angina: unspecified whether angina present Coronary Disease-Associated Artery/Lesion type: unspecified vessel or lesion type [place] vs. transplanted heart: [place] heart Qualified Code(s): I25.10 - Atherosclerotic heart disease of [place] coronary artery without angina pectoris History of Present Illness History of Present Illness Chief Complaint: Confusion with weakness after several days of decreased intake Narrative: This is an 83-year-old female patient who has a long history of cardiac disease with atrial fibrillation now in sinus rhythm with pacemaker status post ablation on Eliquis, CAD with CABG when she was in her 40s, and recent diagnosis of shingles over her left back in the L1 dermatome with a very isolated lesion initiated on Valtrex. She began to have this pain and lesion March 22 and was seen on March 26 with Valtrex initiated. She also began to have thrush March 25 and this also treated March 26. She had had decreased intake over the last several days because of her thrush. Is also possible Valtrex could have caused some of her renal dysfunction and does cause delirium. She has not delirious as much as sedated and sleeping more with her decreased intake. She has been dehydrated in the past with similar symptoms sedation and sleeping. In the ED she was be acutely dehydrated and was respond to IV fluids. Valtrex is being held. She appeared to be able to swallow clear fluids. She was attended by her family who gave most of her history with her younger family being grandkids and children checking on her frequently but the patient does live with her 94-year-old aunt. She is a DNR/DNI. Review of Systems Narrative: 13 point review of systems otherwise unrevealing or stable. Patient has had no shortness of breath, fever or GI symptoms and no cardiovascular symptoms. Most of her problem was as described with decreased intake because of her sore mouth. PFSH All Active Problems (Updated 03/29/23 @ 05:46 by Cristofer Rosenberg) Oral thrush (Acute) Acute renal insufficiency (Acute) AMS (altered mental status) (Acute) Weakness (Acute) Acute dehydration (Acute) Altered mental status (Acute) Shingles (Acute) Lumbar radiculopathy (Chronic) Acute pain of right hip (Acute) B12 deficiency (Acute) Mitral regurgitation (Chronic ~2021) ECHO 09/2021 residential prescription benzodiazepine use (Chronic) Atherosclerosis of right carotid artery (Acute) Subjective memory complaints (Acute ~06/2021) MoCA 25/30; executive difficulty Presence of permanent cardiac pacemaker (Acute ~2015) Dual lead Medtronic pacemaker 09/05/2015; Her presenting rhythm is atrial pacing and underlying rhythm is sinus Generalized anxiety disorder (Acute) Atrial fibrillation (Chronic) s/p ablation 02/2016 Abnormal echocardiogram (Acute ~05/2018) 05/28/2018 ([facility]): 1+/4+ mitral regurg; EF 56% Depression (Chronic) a. h/o ECT treatment x1 (per Liliana very effective) b. formerly followed by Chauncey Gracia NP c. On multiple medications d. h/o psychiatric hospitalizations for reported bipolar e. h/o suicide attempts Retinal dot hemorrhage of both eyes (Acute ~10/2019) 08/15/2019 Dr Aliza Eng Osteoporosis (Chronic) See 10/2018 CT T11 compression fracture 2017 DEXA osteopenia [id number]: Boniva x2, which she tolerated, thus switching to Reclast (better outcome data) ASCVD (arteriosclerotic cardiovascular disease) (Chronic) cardiac cath Essential tremor (Chronic 04/02/08) R > L, EVAL PRICE 2008; DINORAHWKAILASH [id number]; responds to low dose propranolol Hyperlipidemia (Chronic 08/17/11) Crestor switched to Atorvastatin per ins Generalized atherosclerosis (Chronic 08/17/11) H/O CABG 1993; Cath 11/2015: all three grafts open; EF 60%; JUANPABLO 02/2015 EF 55% Gouty arthropathy, unspecified (Chronic 08/17/11) Essential hypertension (Chronic 08/17/11) Diabetic neuropathy (Chronic 03/07/15) Dr Robbins DM type 2, controlled, with complication (Chronic) complications: neuropathy, cardiovascular disease Chronic nonalcoholic liver disease (Chronic 08/17/11) Chronic kidney disease, stage III (moderate) (Chronic 08/17/11) Coronary artery disease (Chronic) a. inferior OR 1984 b. OR with CABG 1992 Patient is doing well with no chest pain. Continue on current medications. oysterman current use of 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 (Chronic) Apixaban for AF GERD (gastroesophageal reflux disease) (Chronic) Severe anxiety with panic (Chronic) L-T BZD Rx Medical History Caregiver burden ; 02/2022 Chest pain Chronic atrial fibrillation (11/19/15) s/p Ablation 02/2016 Chronic fatigue syndrome Chronic pain Back; L-T Tramadol RX (which was discont 2018); h/o compression fractures Diarrhea [facility] GI 2019; Kefir & Psyllium husk help Fracture of rib of right side (08/26/15) Fracture of right shoulder (08/26/15) Frequent falls (04/05/17) Hematoma Hypokalemia Mid back pain compression fx Primary osteoarthritis of right knee (08/24/16) Prolonged MA interval Sleeping difficulty (07/01/15) Improved on Mirtaz 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 declined ablation at [facility] Patient's dual-chamber pacemaker is functioning normally with ample generator life remaining. She has had no further PAF episodes noted. Her presenting rhythm is atrial pacing and underlying rhythm is sinus bradycardia. No reprogramming needed. She does not use remote monitoring. Trigger finger, left middle finger Trigger finger, left ring finger Trigger finger, right ring finger Unexplained weight loss GI work-up NEG; Mirtaz helped Surgical History Ablation for A Fib (03/10/16) Catheter ablatioin for A Flutter and catheter ablatiion for A Fib; [facility] Dr David King cardiac catheterization (11/27/14) 3 vessel disease, occluded, Grafts: mammary artery and 2 venous grafts are all open. cardioversion (07/20/14) Dr Garcia, [facility] Extraction of cataract (11/11/15) L cataract Jayme R cataract-Dr Hutson H/O surgical procedure a. left cataract surgery b. Duane fundoplication c. carpal tunnel syndrome d. bilateral tubal ligation e. hysterectomy f. arthroscopy left knee 09/2011 g. s/p breast reduction History of hysterectomy Pacemaker (09/05/15) [facility], [employer] DUAL CHAMBER Replacement of total knee joint (09/14/11) CELESTE LEFT TKA Trigger Finger release R 4th digit Family History Mother , perf ulcer at age 78. Hip fracture mother from complications of hip fracture Father , stroke at age 80. No problems noted. Sister No problems noted. Social History Smoking/Tobacco Use Status: Never Second Hand Exposure: No Smoking risk assessment performed?: Yes Alcohol Intake: never Drug use: Never Substance use type: does not use Adopted: No (raised by Aunt and Uncle) Caregiver/Support person: Yes (youngest daughter: Jacquelyn Chavira is healthcare agent [phone]) Foster care: No Household members: spouse Housing: house Number of Children: 4 Current gender identity: female What is your relationship status?: Panel score (0-1 are the most socially isolated patients): 1 What type of physical activity do you participate in: additional Details: gardening, playing with dog Shasta/Latter-Day: Muslim Seatbelt use: always Drive intox or ride w/intox solid waste truck driver: No Water heater temp set <120 deg: Yes Working smoke detector in home: Yes Fire extinguisher in home: Yes Carbon monox detector in home: Yes Firearms in home: Yes Do you feel safe at home: Yes Do you feel safe in your relationship?: Yes History History 5 Para Hx # Term Pregnancies 4 Multiple births Hx # Pregnancies Ectopic pregnancies AB induced Hx Number of Living Children AB spontaneous Meds Allergies and Home Medications Allergies Allergy/AdvReac Type Severity Reaction Status Date / Time nifedipine Allergy Mild Hives Verified 03/28/23 19:11 amiodarone AdvReac Severe tremor Verified 03/28/23 19:11 oxycodone AdvReac Severe heavy Verified 03/28/23 19:11 sedation amoxicillin AdvReac Intermediate sore Verified 03/28/23 19:11 burning mouth Anesthetics - Amide Type - AdvReac Intermediate anxious Verified 03/28/23 19:11 Select A [Anesthetics - Amide Type] diazepam AdvReac Intermediate Agitation Verified 03/28/23 19:11 indomethacin AdvReac Intermediate headache, Verified 03/28/23 19:11 flush metformin AdvReac Intermediate Diarrhea Verified 03/28/23 19:11 Home Medications Medication Instructions Recorded Confirmed Type acetaminophen 325 mg tablet 650 mg PO Q4H PRN PRN #0 tabs 01/15/16 03/28/23 Rx (Tylenol) cyanocobalamin (vitamin B-12) 1,000 mcg PO DAILY #90 tab-caps 02/10/16 03/28/23 History 1,000 mcg tablet cholecalciferol (vitamin D3) 25 1,000 unit PO BID 10/05/16 03/28/23 History mcg (1,000 unit) capsule (Vitamin D3) zoledronic acid 5 mg/100 mL in See Rx Instructions IV .once per 06/23/21 03/28/23 Rx mannitol 5 %-water intravenous year #100 mL piggybck (Reclast) nitroglycerin 0.4 mg sublingual 0.4 mg sublingual Q5 MIN PRN X3 04/15/22 03/28/23 Rx tablet (Nitrostat) PRN chest pain #20 tabs mupirocin 2 % topical ointment 1 applic topical BID #15 grams 05/13/22 03/28/23 Rx L. acidophilus/Bifid. animalis PO DAILY 06/17/22 03/26/23 History [Daily Probiotic] blood sugar diagnostic (Blood #100 ea 06/17/22 03/26/23 Rx Glucose Test strips) blood-glucose meter #1 ea 06/17/22 03/26/23 Rx lancets #100 ea 06/17/22 03/26/23 Rx carvedilol 6.25 mg tablet See Rx Instructions .Route 08/03/22 03/28/23 Rx .COMPLEX #180 tabs lamotrigine 100 mg tablet See Rx Instructions .Route 08/21/22 03/28/23 Rx .COMPLEX #180 tabs citalopram 20 mg tablet 20 mg PO QHS #90 tabs 09/10/22 03/28/23 Rx atorvastatin 40 mg tablet See Rx Instructions .Route 09/21/22 03/28/23 Rx .COMPLEX #90 tabs nystatin 100,000 unit/gram topical 1 applic topical BID PRN robin 09/25/22 03/28/23 Rx cream rash #30 grams amlodipine 2.5 mg tablet See Rx Instructions PO DAILY #360 10/22/22 03/28/23 Rx tabs lorazepam 0.5 mg tablet 0.5 mg PO DAILY PRN acute anxiety 10/22/22 03/28/23 Rx #30 tabs losartan 50 mg tablet 50 mg PO BID #180 tabs 10/22/22 03/28/23 Rx apixaban 5 mg tablet (Eliquis) 5 mg PO BID #180 tabs 10/27/22 03/28/23 Rx carvedilol 3.125 mg tablet 3.125 mg PO BID #180 tabs 10/27/22 03/28/23 Rx lidocaine 5 % topical patch 1 patch topical DAILY PRN 12/28/22 03/28/23 Rx compression fracture pain #30 ea omeprazole 20 mg tablet,delayed 20 mg PO .every other day #45 tabs 02/24/23 03/28/23 Rx release gabapentin 300 mg capsule See Rx Instructions .Route 03/03/23 03/28/23 Rx .COMPLEX #360 caps clotrimazole 10 mg latoya 10 mg mucous membrane TID #20 tabs 03/26/23 03/28/23 Rx valacyclovir 1 gram tablet 1,000 mg PO TID #21 tabs 03/26/23 03/28/23 Rx (Valtrex) Exam Narrative Exam Narrative: General: Patient appears appropriate for age, short stature and thin, sedated but easily awakened and answers simple questions with brief conversation. She appears to be oriented to person place at least. She does fall back asleep when not stimulated. HEENT: Normocephalic, eyes with pupils equal react light symmetrically, extraocular move intact and sclera anicteric. Oropharynx with dry mucosa. Neck: Supple without JVD. Back: Kyphotic without CVA tenderness. Lungs: Bronchovesicular sounds diffusely with fair aeration and no focalizing rales or rhonchi. Breast: Exam deferred. Heart: Regular rate and rhythm with 3/6 to 4/6 holosystolic murmur over apex. No gallops rubs. There is a palpable subcutaneous pacemaker left upper chest. Abdomen: Slightly obese contour, soft nontender to palpation with no palpable hepatosplenomegaly. Bowel sounds positive all quadrants. Genitalia/rectal: Exam deferred. Extremities: Without clubbing, cyanosis or grossly pitting edema. Good cap refill. Skin: Normal color, warm and dry. Rough texture with actinic changes over sun exposed areas. Single erythematous lesion with dry base of previous vesicular lesion as described by family over the left central back near the spine in the L1 dermatome. Neuro: Cranial nerves II through XII gross intact, no focalizing motor deficits. No tremor. Psych: Flattened affect with normal. Mood when patient is awake. No abnormal thought processes. Remote and recent memory not fully testable with patient sleepy. According to her family, these are intact. Results Imaging Imaging Studies: Exam: CT Head Without Contrast Exam date and time: 03/28/2023 8:22 PM Age: 83 years old Clinical indication: Other: General weakness TECHNIQUE: Imaging protocol: Computed tomography of the head without contrast. Radiation optimization: All CT scans at this facility use at least one of these dose optimization techniques: automated exposure control; mA and/or kV adjustment per patient size (includes targeted exams where dose is matched to clinical indication); or iterative reconstruction. COMPARISON: CT HEAD FACIAL WO 03/25/2022 7:29 PM FINDINGS: Brain: Stable bilateral periventricular white matter hypodensity consistent with small-vessel ischemic change. No intracranial hemorrhage. No evidence of acute ischemia. No mass or mass effect. Cerebral ventricles: Ventricles and sulci are appropriate for age. Paranasal sinuses: Visualized sinuses are unremarkable. No fluid levels. Mastoid air cells: Visualized mastoid air cells are well aerated. Bones/joints: Unremarkable. No acute fracture. Soft tissues: Unremarkable. IMPRESSION: No acute intracranial abnormalities Exam: XR Chest Exam date and time: 03/28/2023 8:18 PM Age: 83 years old Clinical indication: Other: Weakness; Prior surgery; Surgery date: 6+ months; Surgery type: Pacemaker TECHNIQUE: Imaging protocol: Radiologic exam of the chest. Views: 2 views. COMPARISON: CR XR RIBS LT PA CHEST 3V 11/21/2021 3:43 PM FINDINGS: Tubes, catheters and devices: Left chest dual lead pacemaker is stable. Lungs: No consolidation. No Mass Pleural spaces: No pleural effusion. No pneumothorax. Heart/Mediastinum: Stable cardiac silhouette. Vasculature: Calcifications of the aortic arch. Bones/joints: Median sternotomy wires are again noted. IMPRESSION: No acute cardiopulmonary disease Labs 03/28/23 19:45 03/28/23 19:45 Labs: Laboratory Results - last 24 hr 03/28/23 03/28/23 03/28/23 19:45 19:45 20:20 WBC 5.83 RBC 4.31 Hgb 14.3 Hct 41.9 MCV 97 H MCH 33.2 H MCHC 34.1 RDW 12.5 Plt Count 118 L MPV 9.2 Immature Gran % 0.7 Neutrophils % 66.8 Lymphocytes % 22.3 Monocytes % 8.7 Eosinophils % 1.2 Basophils % 0.3 Nucleated RBC % 0.0 Absolute Neutrophils 3.89 Absolute Lymphocytes 1.30 Absolute Monocytes 0.51 Absolute Eosinophils 0.07 Absolute Basophils 0.02 VBG Lactate Sodium 137 Potassium 4.1 Chloride 100 Carbon Dioxide 28.1 Anion Gap 8.9 BUN 33 H Creatinine 1.7 H Est GFR (CKD-EPI 2020) 29.94 Glucose 120 H Calcium 10.2 H Magnesium 2.2 Total Bilirubin 0.7 AST 20 ALT 30 Alkaline Phosphatase 46 Troponin I < 50 Total Protein 7.5 Albumin 3.7 Procalcitonin TSH 1.00 Urine Color Urine Clarity Urine pH Ur Specific [place] Urine Protein Urine Ketones Urine Blood Urine Nitrite Urine Bilirubin Urine Urobilinogen Ur Leukocyte Esterase Urine RBC Urine WBC Ur Epithelial Cells Urine Crystals Urine Bacteria Urine Mucus Urine Other Ur Culture Indicated? Urine Glucose Urine Opiates Screen Negative Urine Methadone Screen Negative Ur Barbiturates Screen Negative Ur Tricyclics Screen Negative Ur Amphetamines Screen Negative U Benzodiazepines Scrn Negative Urine Cocaine Screen Negative Ur THC Screen Negative Ethyl Alcohol 4.5 03/28/23 03/28/23 20:20 20:32 WBC RBC Hgb Hct MCV MCH MCHC RDW Plt Count MPV Immature Gran % Neutrophils % Lymphocytes % Monocytes % Eosinophils % Basophils % Nucleated RBC % Absolute Neutrophils Absolute Lymphocytes Absolute Monocytes Absolute Eosinophils Absolute Basophils VBG Lactate 1.6 H Sodium Potassium Chloride Carbon Dioxide Anion Gap BUN Creatinine Est GFR (CKD-EPI 2020) Glucose Calcium Magnesium Total Bilirubin AST ALT Alkaline Phosphatase Troponin I Total Protein Albumin Procalcitonin 0.2 TSH Urine Color Yellow Urine Clarity Clear Urine pH 5.5 Ur Specific [place] 1.010 Urine Protein Negative Urine Ketones Negative Urine Blood Small H Urine Nitrite Negative Urine Bilirubin Negative Urine Urobilinogen 0.2 Ur Leukocyte Esterase Negative Urine RBC 3-5 H Urine WBC 0-2 Ur Epithelial Cells Few Urine Crystals Negative Urine Bacteria Negative Urine Mucus Negative Urine Other Negative Ur Culture Indicated? No Urine Glucose Negative Urine Opiates Screen Urine Methadone Screen Ur Barbiturates Screen Ur Tricyclics Screen Ur Amphetamines Screen U Benzodiazepines Scrn Urine Cocaine Screen Ur THC Screen Ethyl Alcohol Last Vital Signs Temp 36.8 C 03/28/23 18:57 Pulse 59 L 03/28/23 21:22 Resp 16 03/28/23 21:30 BP 144/43 H 03/28/23 21:22 Pulse Ox 93 03/28/23 21:22 Time Spent Time spent with Patient: >75 minutes Time was spent: preparing to see the patient(eg.review tests), obtaining and/or reviewing separately otained hiistory, ordering medications,tests, procedures, referring, communicating with other health manager intensive care unit, indepentently interpreting results, care coordination and other (Reviewing history with family at bedside)
--- NOTE | 2023-03-28 22:33 | ED.GENADUL_ITS ---
Discharge Plan Disposition Patient Disposition: Home Discharge Details Clinical Impression: Acute renal insufficiency, AMS (altered mental status), Weakness Primary Care Provider: Linn Paulino ED Provider: Sharla Her Home Meds and New Rx's Prescriptions: No Action zoledronic [id number] [Reclast] 5 mg/100 mL piggyback See Rx Instructions IV .once per year Qty: 100 0RF Rx Instructions: 100mL IV .once per year; administer over at least 15 mins mupirocin 2 % ointment 1 applic topical BID Qty: 15 1RF Rx Instructions: May substitute with cream if less expensive; apply thin layer to corners of the mouth until area/lesion resolved amlodipine 2.5 mg tablet See Rx Instructions PO DAILY Qty: 360 3RF Rx Instructions: 2.5mg AM, 5mg PM PO daily; High blood pressure or as directed (dosed changed 10/09/2020) losartan 50 mg tablet 50 mg PO BID Qty: 180 3RF Rx Instructions: Blood pressure lorazepam 0.5 mg tablet 0.5 mg PO DAILY MDD 1mg/24h PRN (Reason: acute anxiety) Qty: 30 5RF Rx Instructions: acute anxiety/panic/grief nitroglycerin [Nitrostat] 0.4 mg tablet, sublingual 0.4 mg Sublingual Q5 MIN PRN X3 PRN (Reason: chest pain) Qty: 20 1RF Patient Comments: 06/15/19-unable to verify meds, pt left drug list at home and does not know meds/doses. Rx Instructions: Q5min, x3 max, PRN chest pressure L. acidophilus/Bifid. animalis [Daily Probiotic] PO DAILY (DME) blood-glucose meter Misc See Rx Instructions .MEDSUPPLY Qty: 1 0RF Rx Instructions: As directed to check blood glucose daily. No insulin. Dispense covered brand. (DME) Blood Glucose Test Strip See Rx Instructions .MEDSUPPLY Qty: 100 3RF Rx Instructions: As directed to check blood glucose daily. No insulin. Dispense covered brand. (DME) lancets Misc See Rx Instructions .MEDSUPPLY Qty: 100 3RF Rx Instructions: As directed to check blood glucose daily. No insulin. Dispense covered brand. nystatin 100,000 unit/gram cream 1 applic TP BID PRN (Reason: robin rash) Qty: 30 0RF Rx Instructions: Apply to affected area on abdomen lidocaine 5 % adhesive patch,medicated 1 patch topical DAILY PRN (Reason: compression fracture pain) Qty: 30 2RF Rx Instructions: leave on most painful area for 12 hrs, then remove for compression fracture or right arm pain; may cut to size omeprazole 20 mg tablet,delayed release (DR/EC) 20 mg PO .every other day MDD 20mg/24h Qty: 45 3RF Rx Instructions: Take on empty stomach every other day for atypical chest pain/heartburn valacyclovir [Valtrex] 1 gram tablet 1,000 mg PO TID Qty: 21 0RF clotrimazole 10 mg latoya 10 mg mucous membrane TID Qty: 20 0RF cyanocobalamin (vitamin B-12) 1,000 MCG tablet 1,000 mcg PO DAILY Qty: 90 Patient Comments: 06/15/19-unable to verify meds, pt left drug list at home and does not know meds/doses. cholecalciferol (vitamin D3) [Vitamin D3] 1,000 UNIT capsule 1,000 unit PO BID Patient Comments: 06/15/19-unable to verify meds, pt left drug list at home and does not know meds/doses. carvedilol 6.25 mg tablet See Rx Instructions .ROUTE .COMPLEX Qty: 180 3RF Dose Instruction: TAKE 1 TABLET BY MOUTH TWO TIMES A DAY WITH 3.125MG TABLET Rx Instructions: TAKE 1 TABLET BY MOUTH TWO TIMES A DAY WITH 3.125MG TABLET lamotrigine 100 mg tablet See Rx Instructions .ROUTE .COMPLEX Qty: 180 3RF Dose Instruction: TAKE ONE TABLET BY MOUTH TWICE A DAY Rx Instructions: TAKE ONE TABLET BY MOUTH TWICE A DAY citalopram 20 mg tablet 20 mg PO QHS Qty: 90 3RF Rx Instructions: Depression & anxiety atorvastatin 40 mg tablet See Rx Instructions .ROUTE .COMPLEX Qty: 90 3RF Dose Instruction: TAKE ONE TABLET BY MOUTH EVERY DAY Rx Instructions: TAKE ONE TABLET BY MOUTH EVERY DAY carvedilol 3.125 mg tablet 3.125 mg PO BID Qty: 180 3RF Rx Instructions: To take with 6.25mg tab for total dose of 9.375 BID for AFib and HTN Eliquis 5 mg tablet 5 mg PO BID Qty: 180 3RF Hold Instructions: Resume on 07/13/22. Patient Comments: 06/15/19-unable to verify meds, pt left drug list at home and does not know meds/doses. Rx Instructions: anticoagulation for atrial fibrillation gabapentin 300 mg capsule See Rx Instructions .ROUTE .COMPLEX Qty: 360 3RF Dose Instruction: TAKE ONE CAPSULE BY MOUTH EVERY MORNING AND TAKE 1 CAPSULE EVERY AFTERNOON AND TAKE 2 CAPSULES EVERY NIGHT AT BEDTIME FOR NEUROPATHIC PAIN Rx Instructions: TAKE ONE CAPSULE BY MOUTH EVERY MORNING AND TAKE 1 CAPSULE EVERY AFTERNOON AND TAKE 2 CAPSULES EVERY NIGHT AT BEDTIME FOR NEUROPATHIC PAIN acetaminophen [Tylenol] 325 MG tablet 650 mg PO Q4H PRN PRNQty: 0 0RF Medical Decision Making 83-year-old female, alert and oriented, fatigued in appearance, difficulty with ambulating secondary to weakness Alert and oriented x4, cranial nerves II through XII intact, strength and sensation intact distally, no peripheral edema, no abdominal tenderness, systolic murmur noted, lungs clear to auscultation, cardiac rate rhythm regular Chest x-ray does not show evidence of acute abnormality per radiology interpretation and my review CT head does not show evidence of acute abnormality per radiology interpretation and my review Diagnostic labs are reassuring, very mild elevation in lactate, 1.6, procalcitonin within normal limits Creatinine elevated at 1.7, BUN of 33, increased levels from prior, suspect component of dehydration although patient was recently started on Valtrex, perha ps this is an adverse effect of the Valtrex, will hold the Valtrex this evening As patient is weak, slow to respond, and very fatigued, despite IV hydration we will admit for overnight observation for alteration in mental status, this was discussed with granddaughter, grandson, and patient's daughter, all are in agreement that patient stay HPI General Date/Time Provider Initiated Documentation: 03/28/23 19:06 . HPI Narrative: This 83-year-old female with history of anxiety, atrial fibrillation, pacemaker, chronic anticoagulation presents for report of confusion and fatigue, was found by her grand kids today confused with difficulty ambulating and has been sleeping all day which is very unusual reportedly. Denies any known falls or injuries. New medication is Valtrex which was started 2 days ago. This was started for suspected shingles on her back. Patient denies headache, stiff neck, strength or sensation change, she is alert and oriented she is just been confused per family. Denies any new rashes or lesions. Denies any urinary symptoms. Does have a history of urinary tract infection, remembers being confused with her last reportedly. Related Data Home Medications Medication Instructions Recorded Confirmed acetaminophen 325 mg tablet 650 mg PO Q4H PRN PRN #0 tabs 01/15/16 03/26/23 (Tylenol) cyanocobalamin (vitamin B-12) 1,000 mcg PO DAILY #90 tab-caps 02/10/16 03/26/23 1,000 mcg tablet cholecalciferol (vitamin D3) 25 1,000 unit PO BID 10/05/16 03/26/23 mcg (1,000 unit) capsule (Vitamin D3) zoledronic acid 5 mg/100 mL in See Rx Instructions IV .once per 06/23/21 03/26/23 mannitol 5 %-water intravenous year #100 mL piggybck (Reclast) nitroglycerin 0.4 mg sublingual 0.4 mg sublingual Q5 MIN PRN X3 04/15/22 03/26/23 tablet (Nitrostat) PRN chest pain #20 tabs mupirocin 2 % topical ointment 1 applic topical BID #15 grams 05/13/22 03/26/23 L. acidophilus/Bifid. animalis PO DAILY 06/17/22 03/26/23 [Daily Probiotic] blood sugar diagnostic (Blood #100 ea 06/17/22 03/26/23 Glucose Test strips) blood-glucose meter #1 ea 06/17/22 03/26/23 lancets #100 ea 06/17/22 03/26/23 carvedilol 6.25 mg tablet See Rx Instructions .Route 08/03/22 03/26/23 .COMPLEX #180 tabs lamotrigine 100 mg tablet See Rx Instructions .Route 08/21/22 03/26/23 .COMPLEX #180 tabs citalopram 20 mg tablet 20 mg PO QHS #90 tabs 09/10/22 03/26/23 atorvastatin 40 mg tablet See Rx Instructions .Route 09/21/22 03/26/23 .COMPLEX #90 tabs nystatin 100,000 unit/gram topical 1 applic topical BID PRN robin 09/25/22 03/26/23 cream rash #30 grams amlodipine 2.5 mg tablet See Rx Instructions PO DAILY #360 10/22/22 03/26/23 tabs lorazepam 0.5 mg tablet 0.5 mg PO DAILY PRN acute anxiety 10/22/22 03/26/23 #30 tabs losartan 50 mg tablet 50 mg PO BID #180 tabs 10/22/22 03/26/23 apixaban 5 mg tablet (Eliquis) 5 mg PO BID #180 tabs 10/27/22 03/26/23 carvedilol 3.125 mg tablet 3.125 mg PO BID #180 tabs 10/27/22 03/26/23 lidocaine 5 % topical patch 1 patch topical DAILY PRN 12/28/22 03/26/23 compression fracture pain #30 ea omeprazole 20 mg tablet,delayed 20 mg PO .every other day #45 tabs 02/24/23 03/26/23 release gabapentin 300 mg capsule See Rx Instructions .Route 03/03/23 03/26/23 .COMPLEX #360 caps clotrimazole 10 mg latoya 10 mg mucous membrane TID #20 tabs 03/26/23 03/26/23 valacyclovir 1 gram tablet 1,000 mg PO TID #21 tabs 03/26/23 03/26/23 (Valtrex) Previous Rx's Medication Instructions Recorded acetaminophen 325 mg tablet 650 mg PO Q4H PRN PRN #0 tabs 01/15/16 (Tylenol) zoledronic acid 5 mg/100 mL in See Rx Instructions IV .once per 06/23/21 mannitol 5 %-water intravenous year #100 mL piggybck (Reclast) nitroglycerin 0.4 mg sublingual 0.4 mg sublingual Q5 MIN PRN X3 04/15/22 tablet (Nitrostat) PRN chest pain #20 tabs mupirocin 2 % topical ointment 1 applic topical BID #15 grams 05/13/22 blood sugar diagnostic (Blood #100 ea 06/17/22 Glucose Test strips) blood-glucose meter #1 ea 06/17/22 lancets #100 ea 06/17/22 carvedilol 6.25 mg tablet See Rx Instructions .Route 08/03/22 .COMPLEX #180 tabs lamotrigine 100 mg tablet See Rx Instructions .Route 08/21/22 .COMPLEX #180 tabs citalopram 20 mg tablet 20 mg PO QHS #90 tabs 09/10/22 atorvastatin 40 mg tablet See Rx Instructions .Route 09/21/22 .COMPLEX #90 tabs nystatin 100,000 unit/gram topical 1 applic topical BID PRN robin 09/25/22 cream rash #30 grams amlodipine 2.5 mg tablet See Rx Instructions PO DAILY #360 10/22/22 tabs lorazepam 0.5 mg tablet 0.5 mg PO DAILY PRN acute anxiety 10/22/22 #30 tabs losartan 50 mg tablet 50 mg PO BID #180 tabs 10/22/22 apixaban 5 mg tablet (Eliquis) 5 mg PO BID #180 tabs 10/27/22 carvedilol 3.125 mg tablet 3.125 mg PO BID #180 tabs 10/27/22 lidocaine 5 % topical patch 1 patch topical DAILY PRN 12/28/22 compression fracture pain #30 ea omeprazole 20 mg tablet,delayed 20 mg PO .every other day #45 tabs 02/24/23 release gabapentin 300 mg capsule See Rx Instructions .Route 03/03/23 .COMPLEX #360 caps clotrimazole 10 mg latoya 10 mg mucous membrane TID #20 tabs 03/26/23 valacyclovir 1 gram tablet 1,000 mg PO TID #21 tabs 03/26/23 (Valtrex) Allergies Allergy/AdvReac Type Severity Reaction Status Date / Time nifedipine Allergy Mild Hives Verified 03/28/23 19:11 amiodarone AdvReac Severe tremor Verified 03/28/23 19:11 oxycodone AdvReac Severe heavy Verified 03/28/23 19:11 sedation amoxicillin AdvReac Intermediate sore Verified 03/28/23 19:11 burning mouth Anesthetics - Amide Type - AdvReac Intermediate anxious Verified 03/28/23 19:11 Select A [Anesthetics - Amide Type] diazepam AdvReac Intermediate Agitation Verified 03/28/23 19:11 indomethacin AdvReac Intermediate headache, Verified 03/28/23 19:11 flush metformin AdvReac Intermediate Diarrhea Verified 03/28/23 19:11 General Stated Complaint: AMS/LOC ANASTACIA: 3 PFSH All Active Problems (Updated 03/28/23 @ 22:40 by EARLE Davis) Acute renal insufficiency (Acute) AMS (altered mental status) (Acute) Weakness (Acute) Acute dehydration (Acute) Altered mental status (Acute) Shingles (Acute) Lumbar radiculopathy (Chronic) Acute pain of right hip (Acute) B12 deficiency (Acute) Mitral regurgitation (Chronic ~2021) ECHO 09/2021 intermediate manager prescription benzodiazepine use (Chronic) Atherosclerosis of right carotid artery (Acute) Subjective memory complaints (Acute ~06/2021) MoCA 25/30; executive difficulty Presence of permanent cardiac pacemaker (Acute ~2015) Dual lead [employer] pacemaker 09/05/2015; Her presenting rhythm is atrial pacing and underlying rhythm is sinus Generalized anxiety disorder (Acute) Atrial fibrillation (Chronic) s/p ablation 02/2016 Abnormal echocardiogram (Acute ~05/2018) 05/28/2018 ([facility]): 1+/4+ mitral regurg; EF 56% Depression (Chronic) a. h/o ECT treatment x1 (per Liliana very effective) b. formerly followed by Chauncey Gracia NP c. On multiple medications d. h/o psychiatric hospitalizations for reported bipolar e. h/o suicide attempts Retinal dot hemorrhage of both eyes (Acute ~10/2019) 08/15/2019 Dr Aliza Eng Osteoporosis (Chronic) See 10/2018 CT T11 compression fracture 2016 DEXA osteopenia [id number]: Boniva x2, which she tolerated, thus switching to Reclast (better outcome data) ASCVD (arteriosclerotic cardiovascular disease) (Chronic) cardiac cath Essential tremor (Chronic 04/02/08) R > L, EVAL PRICE 2008; MOWCHUN [id number]; responds to low dose propranolol Hyperlipidemia (Chronic 08/17/11) Crestor switched to Atorvastatin per ins Generalized atherosclerosis (Chronic 08/17/11) H/O CABG 1993; Cath 11/2015: all three grafts open; EF 60%; JUANPABLO 02/2015 EF 55% Gouty arthropathy, unspecified (Chronic 08/17/11) Essential hypertension (Chronic 08/17/11) Diabetic neuropathy (Chronic 03/07/15) Dr Robbins DM type 2, controlled, with complication (Chronic) complications: neuropathy, cardiovascular disease Chronic nonalcoholic liver disease (Chronic 08/17/11) Chronic kidney disease, stage III (moderate) (Chronic 08/17/11) Coronary artery disease (Chronic) a. inferior OR 1984 b. OR with CABG 1992 Patient is doing well with no chest pain. Continue on current medications. custodial current use of 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 (Chronic) Apixaban for AF GERD (gastroesophageal reflux disease) (Chronic) Severe anxiety with panic (Chronic) L-T BZD Rx Medical History Caregiver burden ; 02/2022 Chest pain Chronic atrial fibrillation (11/19/15) s/p Ablation 02/2016 Chronic fatigue syndrome Chronic pain Back; L-T Tramadol RX (which was discont 2018); h/o compression fractures Diarrhea [facility] GI 2019; Kefir & Psyllium husk help Fracture of rib of right side (08/26/15) Fracture of right shoulder (08/26/15) Frequent falls (04/05/17) Hematoma Hypokalemia Mid back pain compression fx Primary osteoarthritis of right knee (08/24/16) Prolonged NM interval Sleeping difficulty (07/01/15) Improved on Mirtaz 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 declined ablation at [facility] Patient's dual-chamber pacemaker is functioning normally with ample generator life remaining. She has had no further PAF episodes noted. Her presenting rhythm is atrial pacing and underlying rhythm is sinus bradycardia. No reprogramming needed. She does not use remote monitoring. Trigger finger, left middle finger Trigger finger, left ring finger Trigger finger, right ring finger Unexplained weight loss GI work-up NEG; Mirtaz helped Surgical History Ablation for A Fib (03/10/16) Catheter ablatioin for A Flutter and catheter ablatiion for A Fib; [facility] Dr David King cardiac catheterization (11/27/14) 3 vessel disease, occluded, Grafts: mammary artery and 2 venous grafts are all open. cardioversion (07/20/14) Dr Garcia, [facility] Extraction of cataract (11/11/15) L cataract Jayme R cataract-Dr Hutson H/O surgical procedure a. left cataract surgery b. Duane fundoplication c. carpal tunnel syndrome d. bilateral tubal ligation e. hysterectomy f. arthroscopy left knee 09/2011 g. s/p breast reduction History of hysterectomy Pacemaker (09/05/15) [facility], [employer] DUAL CHAMBER Replacement of total knee joint (09/14/11) CELESTE LEFT TKA Trigger Finger release R 4th digit Family History Mother , perf ulcer at age 78. Hip fracture mother from complications of hip fracture Father , stroke at age 80. No problems noted. Sister No problems noted. Social History Smoking/Tobacco Use Status: Never Second Hand Exposure: No Smoking risk assessment performed?: Yes Alcohol Intake: never Drug use: Never Substance use type: does not use Adopted: No (raised by Aunt and Uncle) Caregiver/Support person: Yes (youngest daughter: Jacquelyn Chavira is healthcare agent ph:[phone]) Foster care: No Household members: spouse Housing: house Number of Children: 4 Current gender identity: female What is your relationship status?: Panel score (0-1 are the most socially isolated patients): 1 What type of physical activity do you participate in: additional Details: gardening, playing with dog Shasta/Advent: Nondenominational Seatbelt use: always Drive intox or ride w/intox truck driver flatbed: No Water heater temp set <120 deg: Yes Working smoke detector in home: Yes Fire extinguisher in home: Yes Carbon monox detector in home: Yes Firearms in home: Yes Do you feel safe at home: Yes Do you feel safe in your relationship?: Yes History History 5 Para Hx # Term Pregnancies 4 Multiple births Hx # Pregnancies Ectopic pregnancies AB induced Hx Number of Living Children AB spontaneous Course Vital Signs Vital signs: Vital Signs Temperature 36.8 C 03/28/23 18:57 Pulse 72 03/28/23 18:57 Respiratory Rate 16 03/28/23 18:57 Pulse Oximetry 94 03/28/23 18:57 Temperature 36.8 C 03/28/23 18:57 Temperature Source Oral 03/28/23 18:57 Pulse 59 L 03/28/23 21:22 Pulse 60 03/28/23 22:10 Respiratory Rate 11 L 03/28/23 22:10 Respiratory Effort Normal 03/28/23 19:07 Respiratory Depth Normal 03/28/23 19:07 Respiratory Pattern Normal 03/28/23 19:07 Blood Pressure 144/43 H 03/28/23 21:22 Blood Pressure Mean 82 03/28/23 21:22 Pulse Oximetry 94 03/28/23 22:10 Pain Level 0 03/28/23 18:57 Lab/Test Results Lab/Test Results: Laboratory Tests Range/Units 03/28/23 03/28/23 03/28/23 19:45 19:45 20:20 WBC (4.4-10.8) 10^3/uL 5.83 RBC (3.93-5.22) 10^6/uL 4.31 Hgb (11.2-15.7) g/dL 14.3 Hct (36.0-46.0) % 41.9 MCV (80-95) fL 97 H MCH (27.0-33.0) pg 33.2 H MCHC (32.0-36.0) % 34.1 RDW (11.7-14.6) % 12.5 Plt Count (130-400) 10^3/uL 118 L MPV (8.0-11.0) fL 9.2 Immature Gran % 0.7 Neutrophils % 66.8 Lymphocytes % 22.3 Monocytes % 8.7 Eosinophils % 1.2 Basophils % 0.3 Nucleated RBC % (0.0-0.3) % 0.0 Absolute Neutrophils (1.2-6.7) 10^3/uL 3.89 Absolute Lymphocytes (1.2-3.4) 10^3/uL 1.30 Absolute Monocytes (0.1-0.8) 10^3/uL 0.51 Absolute Eosinophils (0.0-0.7) 10^3/uL 0.07 Absolute Basophils (0.0-0.2) 10^3/uL 0.02 VBG Lactate (0.6-1.4) mmol/L Sodium (136-145) mmol/L 137 Potassium (3.5-5.1) mmol/L 4.1 Chloride (98-107) mmol/L 100 Carbon Dioxide (21.0-32.0) mmol/L 28.1 Anion Gap (3-11) mmol/L 8.9 BUN (7-18) mg/dL 33 H Creatinine (0.55-1.02) mg/dL 1.7 H Est GFR (CKD-EPI 2020) (mL/min/1.73m2) 29.94 Glucose (74-106) mg/dL 120 H Calcium (8.5-10.1) mg/dL 10.2 H Magnesium (1.8-2.4) mg/dL 2.2 Total Bilirubin (0.2-1.0) mg/dL 0.7 AST (15-37) U/L 20 ALT (14-59) U/L 30 Alkaline Phosphatase (46-116) U/L 46 Troponin I (<or=60) ng/L < 50 Total Protein (6.4-8.2) g/dL 7.5 Albumin (3.4-5.0) g/dL 3.7 Procalcitonin ng/mL TSH (0.36-3.74) uIU/mL 1.00 Urine Color (Yellow) Urine Clarity (Clear) Urine pH (5-8) Ur Specific [place] (1.005-1.025) Urine Protein (Negative) mg/dL Urine Ketones (Negative) mg/dL Urine Blood (Negative) Urine Nitrite (Negative) Urine Bilirubin (Negative) Urine Urobilinogen (Up to 0.2) mg/dL Ur Leukocyte Esterase (Negative) Urine RBC (0-2) HPF Urine WBC (0-5) HPF Ur Epithelial Cells (Negative) HPF Urine Crystals (Negative) HPF Urine Bacteria (Negative) HPF Urine Mucus (Negative) Urine Other (Negative) Ur Culture Indicated? Urine Glucose (Negative) mg/dL Urine Opiates Screen (Negative) Negative Urine Methadone Screen (Negative) Negative Ur Barbiturates Screen (Negative) Negative Ur Tricyclics Screen (Negative) Negative Ur Amphetamines Screen (Negative) Negative U Benzodiazepines Scrn (Negative) Negative Urine Cocaine Screen (Negative) Negative Ur THC Screen (Negative) Negative Ethyl Alcohol (<10) mg/dL 4.5 Range/Units 03/28/23 03/28/23 20:20 20:32 WBC (4.4-10.8) 10^3/uL RBC (3.93-5.22) 10^6/uL Hgb (11.2-15.7) g/dL Hct (36.0-46.0) % MCV (80-95) fL MCH (27.0-33.0) pg MCHC (32.0-36.0) % RDW (11.7-14.6) % Plt Count (130-400) 10^3/uL MPV (8.0-11.0) fL Immature Gran % Neutrophils % Lymphocytes % Monocytes % Eosinophils % Basophils % Nucleated RBC % (0.0-0.3) % Absolute Neutrophils (1.2-6.7) 10^3/uL Absolute Lymphocytes (1.2-3.4) 10^3/uL Absolute Monocytes (0.1-0.8) 10^3/uL Absolute Eosinophils (0.0-0.7) 10^3/uL Absolute Basophils (0.0-0.2) 10^3/uL VBG Lactate (0.6-1.4) mmol/L 1.6 H Sodium (136-145) mmol/L Potassium (3.5-5.1) mmol/L Chloride (98-107) mmol/L Carbon Dioxide (21.0-32.0) mmol/L Anion Gap (3-11) mmol/L BUN (7-18) mg/dL Creatinine (0.55-1.02) mg/dL Est GFR (CKD-EPI 2020) (mL/min/1.73m2) Glucose (74-106) mg/dL Calcium (8.5-10.1) mg/dL Magnesium (1.8-2.4) mg/dL Total Bilirubin (0.2-1.0) mg/dL AST (15-37) U/L ALT (14-59) U/L Alkaline Phosphatase (46-116) U/L Troponin I (<or=60) ng/L Total Protein (6.4-8.2) g/dL Albumin (3.4-5.0) g/dL Procalcitonin ng/mL 0.2 TSH (0.36-3.74) uIU/mL Urine Color (Yellow) Yellow Urine Clarity (Clear) Clear Urine pH (5-8) 5.5 Ur Specific [place] (1.005-1.025) 1.010 Urine Protein (Negative) mg/dL Negative Urine Ketones (Negative) mg/dL Negative Urine Blood (Negative) Small H Urine Nitrite (Negative) Negative Urine Bilirubin (Negative) Negative Urine Urobilinogen (Up to 0.2) mg/dL 0.2 Ur Leukocyte Esterase (Negative) Negative Urine RBC (0-2) HPF 3-5 H Urine WBC (0-5) HPF 0-2 Ur Epithelial Cells (Negative) HPF Few Urine Crystals (Negative) HPF Negative Urine Bacteria (Negative) HPF Negative Urine Mucus (Negative) Negative Urine Other (Negative) Negative Ur Culture Indicated? No Urine Glucose (Negative) mg/dL Negative Urine Opiates Screen (Negative) Urine Methadone Screen (Negative) Ur Barbiturates Screen (Negative) Ur Tricyclics Screen (Negative) Ur Amphetamines Screen (Negative) U Benzodiazepines Scrn (Negative) Urine Cocaine Screen (Negative) Ur THC Screen (Negative) Ethyl Alcohol (<10) mg/dL
[2023-03-29] VITALS: BP 133/72; PULSE 69; RESP 14; TEMP 36.7; O2SAT 94
[2023-03-29] MEDS: Lactated Ringers 1,000 ML 125 ML IV ×2 (01:31→10:03)
[2023-03-29] MEDS: LORazepam 0.5 MG TAB PO (01:37)
[2023-03-29 06:10] VITALS: BP 124/68; PULSE 63; RESP 16; TEMP 36.7; O2SAT 92
--- NOTE | 2023-03-29 07:13 | NUR.NOTE ---
Accessed pt chart to determine EKG orders. Duplicate order was cancelled. Nursing Note:
[2023-03-29 07:19] VITALS: BP 148/64; PULSE 60; RESP 18; TEMP 36.5; O2SAT 93
[2023-03-29 07:43] LABS: HCT 36.9 % (36.0-46.0); HGB 12.5 g/dL (11.2-15.7); MCHC 33.9 % (32.0-36.0); MCV 97 fL (80-95); Platelet Count 113 10^3/uL (130-400); RBC 3.79 10^6/uL (3.93-5.22); RDW 12.5 % (11.7-14.6); RDW-SD 45.1 fL
[2023-03-29 08:10] LABS: ALT 25 U/L (14-59); AST 17 U/L (15-37); Albumin 3.2 g/dL (3.4-5.0); Alkaline Phosphatase 40 U/L (46-116); Anion Gap 7.3 mmol/L (3-11); BUN 23 mg/dL (7-18); Bilirubin, Total 0.5 mg/dL (0.2-1.0); CO2 29.7 mmol/L (21.0-32.0); CREATININE 1.2 mg/dL (0.55-1.02); Calcium 10.3 mg/dL (8.5-10.1); Chloride 103 mmol/L (98-107); Estimated GFR 45.48 (mL/min/1.73m2); Glucose 142 mg/dL (74-106); Magnesium 1.9 mg/dL (1.8-2.4); Potassium 3.9 mmol/L (3.5-5.1); Sodium 140 mmol/L (136-145); Total Protein 6.8 g/dL (6.4-8.2)
[2023-03-29 08:25] LABS: Lactate 1.1 mmol/L (0.6-1.4)
[2023-03-29] MEDS: Carvedilol 3.125 MG TAB PO (08:53)
[2023-03-29] MEDS: Cholecalciferol (Vitamin D3) 1,000 UNIT TAB 1000 UNITS PO (08:53)
[2023-03-29] MEDS: Omeprazole 20 MG CAPCR PO (08:53)
[2023-03-29] MEDS: lamoTRIgine 100 MG TAB PO (08:54)
[2023-03-29] MEDS: Apixaban 5 MG TAB PO (08:54)
[2023-03-29] MEDS: Losartan 50 MG TAB PO (08:54)
[2023-03-29] MEDS: amLODIPine 2.5 MG TAB PO (08:54)
[2023-03-29] MEDS: Cyanocobalamin 500 MCG TAB 1000 MCG PO (08:54)
[2023-03-29] MEDS: Gabapentin 300 MG CAP PO ×2 (08:54→14:01)
[2023-03-29] MEDS: Carvedilol 6.25 MG TAB PO (08:54)
--- NOTE | 2023-03-29 09:46 | INITIAL_ITS ---
Date of service: 03/29/23 Time of Service: 09:46 Care Management Initial Assmt Initial Assessment REASON FOR HOSPITALIZATION:: Acute renal insufficiency, AMS, weakness PREVIOUS FUNCTIONAL STATUS/SOCIAL/FAMILY SUPPORTS:: Liliana is and resides in [place], [place] with her dog and cat, which are reportedly being taken care of by her children. Liliana shares that she has four adult children all of whom are supportive. Liliana no longer drives and her children provide her transportation when needed. Liliana feels supported in the community, she is not interested in COA services or MOW's at this time. CURRENT FUNCTIONAL STATUS:: Liliana was sitting up in bed when CM met with her. She is awake and engages in conversation. She is eager to discharge home to be with her pets. Per pt, she is doing well, other than she was recently diagnosed with shingles and has sores in her mouth. She also notes that [facility] recently started coming to her home last week and she is starting to regain her strength. ADVANCE DIRECTIVES:: On file. Has patient been provided with info about the portal/API?: Yes Did the patient sign up for the portal?: No CODE STATUS:: DNR/DNI INSURANCE COVERAGE / FINANCIAL ISSUES:: BC/BS of [place] of [place](secondary only) Medicare CURRENT HOME/COMMUNITY SERVICES/EQUIPMENT:: [facility] PRIMARY CARE PHYSICIAN:: Linn Paulino POTENTIAL DISCHARGE NEEDS:: Evaluations for further needs PATIENT/FAMILY EDUCATION NEEDS:: Review discharge instructions, limitations and plan to follow up with community providers. ANTICIPATED BARRIERS TO DISCHARGE:: None identified TRANSPORTATION:: Via private vehicle with family PLAN:: Anticipate, Liliana will discharge home with resumption of [facility] services. She will transport home via private vehicle with family when medically ready. Liliana will follow up with community providers and her discharge plan of care as recommended. [facility] All Active Problems (Updated 03/29/23 @ 05:46 by Cristofer Rosenberg) Oral thrush (Acute) Acute renal insufficiency (Acute) AMS (altered mental status) (Acute) Weakness (Acute) Acute dehydration (Acute) Altered mental status (Acute) Shingles (Acute) Lumbar radiculopathy (Chronic) Acute pain of right hip (Acute) B12 deficiency (Acute) Mitral regurgitation (Chronic ~2021) ECHO 09/2021 correction prescription benzodiazepine use (Chronic) Atherosclerosis of right carotid artery (Acute) Subjective memory complaints (Acute ~06/2021) MoCA 25/30; executive difficulty Presence of permanent cardiac pacemaker (Acute ~2015) Dual lead [employer] pacemaker 09/05/2015; Her presenting rhythm is atrial pacing and underlying rhythm is sinus Generalized anxiety disorder (Acute) Atrial fibrillation (Chronic) s/p ablation 02/2016 Abnormal echocardiogram (Acute ~05/2018) 05/28/2018 ([facility]): 1+/4+ mitral regurg; EF 56% Depression (Chronic) a. h/o ECT treatment x1 (per Liliana very effective) b. formerly followed by Chauncey Gracia NP c. On multiple medications d. h/o psychiatric hospitalizations for reported bipolar e. h/o suicide attempts Retinal dot hemorrhage of both eyes (Acute ~10/2019) 08/15/2019 Dr Aliza Eng Osteoporosis (Chronic) See 10/2018 CT T11 compression fracture 2016 DEXA osteopenia [id number]: Boniva x2, which she tolerated, thus switching to Reclast (better outcome data) ASCVD (arteriosclerotic cardiovascular disease) (Chronic) cardiac cath Essential tremor (Chronic 04/02/08) R > L, EVAL PRICE 2008; MOWCHUN [id number]; responds to low dose propranolol Hyperlipidemia (Chronic 08/17/11) Crestor switched to Atorvastatin per ins Generalized atherosclerosis (Chronic 08/17/11) H/O CABG 1993; Cath 11/2015: all three grafts open; EF 60%; JUANPABLO 02/2015 EF 55% Gouty arthropathy, unspecified (Chronic 08/17/11) Essential hypertension (Chronic 08/17/11) Diabetic neuropathy (Chronic 03/07/15) Dr Robbins DM type 2, controlled, with complication (Chronic) complications: neuropathy, cardiovascular disease Chronic nonalcoholic liver disease (Chronic 08/17/11) Chronic kidney disease, stage III (moderate) (Chronic 08/17/11) Coronary artery disease (Chronic) a. inferior AR 1984 b. AR with CABG 1992 Patient is doing well with no chest pain. Continue on current medications. correction current use of 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 (Chronic) Apixaban for AF GERD (gastroesophageal reflux disease) (Chronic) Severe anxiety with panic (Chronic) L-T BZD Rx Medical History Caregiver burden ; 02/2022 Chest pain Chronic atrial fibrillation (11/19/15) s/p Ablation 02/2016 Chronic fatigue syndrome Chronic pain Back; L-T Tramadol RX (which was discont 2018); h/o compression fractures Diarrhea [facility] GI 2019; Kefir & Psyllium husk help Fracture of rib of right side (08/26/15) Fracture of right shoulder (08/26/15) Frequent falls (04/05/17) Hematoma Hypokalemia Mid back pain compression fx Primary osteoarthritis of right knee (08/24/16) Prolonged RI interval Sleeping difficulty (07/01/15) Improved on Mirtaz 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 declined ablation at [facility] Patient's dual-chamber pacemaker is functioning normally with ample generator life remaining. She has had no further PAF episodes noted. Her presenting rhythm is atrial pacing and underlying rhythm is sinus bradycardia. No reprogramming needed. She does not use remote monitoring. Trigger finger, left middle finger Trigger finger, left ring finger Trigger finger, right ring finger Unexplained weight loss GI work-up NEG; Mirtaz helped Surgical History Ablation for A Fib (03/10/16) Catheter ablatioin for A Flutter and catheter ablatiion for A Fib; [facility] [place] Dr David King cardiac catheterization (11/27/14) 3 vessel disease, occluded, Grafts: mammary artery and 2 venous grafts are all open. cardioversion (07/20/14) Dr Garcia, [facility] Extraction of cataract (11/11/15) L cataract [place] R cataract-Dr Hutson H/O surgical procedure a. left cataract surgery b. Duane fundoplication c. carpal tunnel syndrome d. bilateral tubal ligation e. hysterectomy f. arthroscopy left knee 09/2011 g. s/p breast reduction History of hysterectomy Pacemaker (09/05/15) [facility] [place], [employer] DUAL CHAMBER Replacement of total knee joint (09/14/11) CELESTE LEFT TKA Trigger Finger release R 4th digit Family History Mother , perf ulcer at age 78. Hip fracture mother from complications of hip fracture Father , stroke at age 80. No problems noted. Sister No problems noted. Social History Smoking/Tobacco Use Status: Never Second Hand Exposure: No Smoking risk assessment performed?: Yes Alcohol Intake: never Drug use: Never Substance use type: does not use Adopted: No (raised by Aunt and Uncle) Caregiver/Support person: Yes (youngest daughter: Jacquelyn Chavira is hea lthcare agent ph:[phone]) Foster care: No Household members: spouse Housing: house Number of Children: 4 Current gender identity: female What is your relationship status?: Panel score (0-1 are the most socially isolated patients): 1 What type of physical activity do you participate in: additional Details: gardening, playing with dog Shasta/Episcopalian: Shinto Seatbelt use: always Drive intox or ride w/intox ems driver: No Water heater temp set <120 deg: Yes Working smoke detector in home: Yes Fire extinguisher in home: Yes Carbon monox detector in home: Yes Firearms in home: Yes Do you feel safe at home: Yes Do you feel safe in your relationship?: Yes History History 5 Para Hx # Term Pregnancies 4 Multiple births Hx # Pregnancies Ectopic pregnancies AB induced Hx Number of Living Children AB spontaneous
--- NOTE | 2023-03-29 09:52 | W.PM.PROGNOT ---
Date of Service Date of service: 03/29/23 Time of Service: 09:52 Objective Last Vital Signs Temp 36.5 C 03/29/23 07:19 Pulse 60 03/29/23 07:19 Resp 18 03/29/23 07:19 BP 148/64 H 03/29/23 07:19 Pulse Ox 93 03/29/23 07:19 Laboratory Results - last 24 hr 03/28/23 03/28/23 03/28/23 19:45 19:45 20:20 WBC 5.83 RBC 4.31 Hgb 14.3 Hct 41.9 MCV 97 H MCH 33.2 H MCHC 34.1 RDW 12.5 Plt Count 118 L MPV 9.2 Immature Gran % 0.7 Neutrophils % 66.8 Lymphocytes % 22.3 Monocytes % 8.7 Eosinophils % 1.2 Basophils % 0.3 Nucleated RBC % 0.0 Absolute Neutrophils 3.89 Absolute Lymphocytes 1.30 Absolute Monocytes 0.51 Absolute Eosinophils 0.07 Absolute Basophils 0.02 VBG Lactate Sodium 137 Potassium 4.1 Chloride 100 Carbon Dioxide 28.1 Anion Gap 8.9 BUN 33 H Creatinine 1.7 H Est GFR (CKD-EPI 2020) 29.94 Glucose 120 H Calcium 10.2 H Magnesium 2.2 Total Bilirubin 0.7 AST 20 ALT 30 Alkaline Phosphatase 46 Troponin I < 50 Total Protein 7.5 Albumin 3.7 Procalcitonin TSH 1.00 Urine Color Urine Clarity Urine pH Ur Specific [place] Urine Protein Urine Ketones Urine Blood Urine Nitrite Urine Bilirubin Urine Urobilinogen Ur Leukocyte Esterase Urine RBC Urine WBC Ur Epithelial Cells Urine Crystals Urine Bacteria Urine Mucus Urine Other Ur Culture Indicated? Urine Glucose Urine Opiates Screen Negative Urine Methadone Screen Negative Ur Barbiturates Screen Negative Ur Tricyclics Screen Negative Ur Amphetamines Screen Negative U Benzodiazepines Scrn Negative Urine Cocaine Screen Negative Ur THC Screen Negative Ethyl Alcohol 4.5 03/28/23 03/28/23 03/28/23 20:20 20:32 22:59 WBC RBC Hgb Hct MCV MCH MCHC RDW Plt Count MPV Immature Gran % Neutrophils % Lymphocytes % Monocytes % Eosinophils % Basophils % Nucleated RBC % Absolute Neutrophils Absolute Lymphocytes Absolute Monocytes Absolute Eosinophils Absolute Basophils VBG Lactate 1.6 H Sodium Potassium Chloride Carbon Dioxide Anion Gap BUN Creatinine Est GFR (CKD-EPI 2020) Glucose Calcium Magnesium Total Bilirubin AST ALT Alkaline Phosphatase Troponin I Cancelled Total Protein Albumin Procalcitonin 0.2 TSH Urine Color Yellow Urine Clarity Clear Urine pH 5.5 Ur Specific [place] 1.010 Urine Protein Negative Urine Ketones Negative Urine Blood Small H Urine Nitrite Negative Urine Bilirubin Negative Urine Urobilinogen 0.2 Ur Leukocyte Esterase Negative Urine RBC 3-5 H Urine WBC 0-2 Ur Epithelial Cells Few Urine Crystals Negative Urine Bacteria Negative Urine Mucus Negative Urine Other Negative Ur Culture Indicated? No Urine Glucose Negative Urine Opiates Screen Urine Methadone Screen Ur Barbiturates Screen Ur Tricyclics Screen Ur Amphetamines Screen U Benzodiazepines Scrn Urine Cocaine Screen Ur THC Screen Ethyl Alcohol 03/29/23 03/29/23 03/29/23 07:10 07:10 08:10 WBC 5.20 RBC 3.79 L Hgb 12.5 Hct 36.9 MCV 97 H MCH 33.0 MCHC 33.9 RDW 12.5 Plt Count 113 L MPV 9.0 Immature Gran % Neutrophils % Lymphocytes % Monocytes % Eosinophils % Basophils % Nucleated RBC % Absolute Neutrophils Absolute Lymphocytes Absolute Monocytes Absolute Eosinophils Absolute Basophils VBG Lactate 1.1 Sodium 140 Potassium 3.9 Chloride 103 Carbon Dioxide 29.7 Anion Gap 7.3 BUN 23 H Creatinine 1.2 H Est GFR (CKD-EPI 2020) 45.48 Glucose 142 H Calcium 10.3 H Magnesium 1.9 Total Bilirubin 0.5 AST 17 ALT 25 Alkaline Phosphatase 40 L Troponin I Total Protein 6.8 Albumin 3.2 L Procalcitonin TSH Urine Color Urine Clarity Urine pH Ur Specific [place] Urine Protein Urine Ketones Urine Blood Urine Nitrite Urine Bilirubin Urine Urobilinogen Ur Leukocyte Esterase Urine RBC Urine WBC Ur Epithelial Cells Urine Crystals Urine Bacteria Urine Mucus Urine Other Ur Culture Indicated? Urine Glucose Urine Opiates Screen Urine Methadone Screen Ur Barbiturates Screen Ur Tricyclics Screen Ur Amphetamines Screen U Benzodiazepines Scrn Urine Cocaine Screen Ur THC Screen Ethyl Alcohol
[2023-03-29 11:41] VITALS: BP 119/76; PULSE 60; RESP 18; TEMP 37.1; O2SAT 94
--- NOTE | 2023-03-29 13:26 | DSE_ITS ---
Date of service: 03/29/23 Time of Service: 13:27 DS: Diagnosis Discharge Diagnosis (1) Altered mental status: Status: Acute (2) Acute dehydration: Status: Acute (3) Oral thrush: Status: Acute (4) Shingles: Status: Acute (5) DM type 2, controlled, with complication: Status: Chronic (6) Chronic kidney disease, stage III (moderate): Status: Chronic (7) Atrial fibrillation: Status: Chronic (8) Lumbar radiculopathy: Status: Chronic (9) Coronary artery disease: Status: Chronic Discharge Plan Disposition Patient Disposition: Home Condition: Improving Discharge Details Reason For Visit: AMS, Acute Dehydration Admit Date/Time: 03/28/23 21:57 Admit Provider: Cristofer Rosenberg Attending Provider: Cristofer Rosenberg Primary Care Provider: Linn Paulino Hospital Course Hospital Course: This is an 83-year-old female patient with past history of anxiety, atrial fibrillation, pacemaker, chronic anticoagulation who presented to the [facility] ED for evaluation of new acute onset confusion and fatigue. patient was found by her granddaughter confused with difficulty ambulating and patient reported she had been sleeping all day which is very unusual for her.? Patient denied falls and had no injuries.? New medication is Valtrex which was started 2 days ago.? This was started for suspected shingles on her back.? Patient denied headache, stiff neck, strength or sensation change, she was alert and oriented.? Denied any new rashes or lesions.? Denied any urinary symptoms.?Chest x-ray does not show evidence of acute abnormality per radiology interpretation. CT head does not show evidence of acute abnormality per radiology interpretation. Diagnostic labs are reassuring, very mild elevation in lactate, 1.6, procalcitonin within normal limits. Creatinine elevated at 1.7, BUN of 33. Patient was given IV fluid bolus and placed on the medical floor for observation. She was well this morning, back to baseline and requested to go home. She ambulated with PT and did well. Her vital signs are stable. She is CAOx4, no confusion at all. She was told to stop the Valtrex. She was given acyclovir ointment for the one small lesions she has on her left mid back that was diagnosed as shingles. She was discharged to home with her granddaughter. She will have home health services resumed. Home Meds and New Rx's Prescriptions: New acyclovir 5 % Ointment 15 g topical 5X/DAY Qty: 0 0RF Continued zoledronic [id number]-[id number] [Reclast] 5 mg/100 mL piggyback See Rx Instructions IV .once per year Qty: 100 0RF Rx Instructions: 100mL IV .once per year; administer over at least 15 mins mupirocin 2 % ointment 1 applic topical BID Qty: 15 1RF Rx Instructions: May substitute with cream if less expensive; apply thin layer to corners of the mouth until area/lesion resolved amlodipine 2.5 mg tablet See Rx Instructions PO DAILY Qty: 360 3RF Rx Instructions: 2.5mg AM, 5mg PM PO daily; High blood pressure or as directed (dosed changed 10/09/2020) losartan 50 mg tablet 50 mg PO BID Qty: 180 3RF Rx Instructions: Blood pressure lorazepam 0.5 mg tablet 0.5 mg PO DAILY MDD 1mg/24h PRN (Reason: acute anxiety) Qty: 30 5RF Rx Instructions: acute anxiety/panic/grief nitroglycerin [Nitrostat] 0.4 mg tablet, sublingual 0.4 mg Sublingual Q5 MIN PRN X3 PRN (Reason: chest pain) Qty: 20 1RF Patient Comments: 06/15/19-unable to verify meds, pt left drug list at home and does not know meds/doses. Rx Instructions: Q5min, x3 max, PRN chest pressure L. acidophilus/Bifid. animalis [Daily Probiotic] PO DAILY (DME) blood-glucose meter Misc See Rx Instructions .MEDSUPPLY Qty: 1 0RF Rx Instructions: As directed to check blood glucose daily. No insulin. Dispense covered brand. (DME) Blood Glucose Test Strip See Rx Instructions .MEDSUPPLY Qty: 100 3RF Rx Instructions: As directed to check blood glucose daily. No insulin. Dispense covered brand. (DME) lancets Misc See Rx Instructions .MEDSUPPLY Qty: 100 3RF Rx Instructions: As directed to check blood glucose daily. No insulin. Dispense covered brand. nystatin 100,000 unit/gram cream 1 applic TP BID PRN (Reason: robin rash) Qty: 30 0RF Rx Instructions: Apply to affected area on abdomen lidocaine 5 % adhesive patch,medicated 1 patch topical DAILY PRN (Reason: compression fracture pain) Qty: 30 2RF Rx Instructions: leave on most painful area for 12 hrs, then remove for compression fracture or right arm pain; may cut to size omeprazole 20 mg tablet,delayed release (DR/EC) 20 mg PO .every other day MDD 20mg/24h Qty: 45 3RF Rx Instructions: Take on empty stomach every other day for atypical chest pain/heartburn cyanocobalamin (vitamin B-12) 1,000 MCG tablet 1,000 mcg PO DAILY Qty: 90 Patient Comments: 06/15/19-unable to verify meds, pt left drug list at home and does not know meds/doses. cholecalciferol (vitamin D3) [Vitamin D3] 1,000 UNIT capsule 1,000 unit PO BID Patient Comments: 06/15/19-unable to verify meds, pt left drug list at home and does not know meds/doses. carvedilol 6.25 mg tablet See Rx Instructions .ROUTE .COMPLEX Qty: 180 3RF Dose Instruction: TAKE 1 TABLET BY MOUTH TWO TIMES A DAY WITH 3.125MG TABLET Rx Instructions: TAKE 1 TABLET BY MOUTH TWO TIMES A DAY WITH 3.125MG TABLET lamotrigine 100 mg tablet See Rx Instructions .ROUTE .COMPLEX Qty: 180 3RF Dose Instruction: TAKE ONE TABLET BY MOUTH TWICE A DAY Rx Instructions: TAKE ONE TABLET BY MOUTH TWICE A DAY citalopram 20 mg tablet 20 mg PO QHS Qty: 90 3RF Rx Instructions: Depression & anxiety atorvastatin 40 mg tablet See Rx Instructions .ROUTE .COMPLEX Qty: 90 3RF Dose Instruction: TAKE ONE TABLET BY MOUTH EVERY DAY Rx Instructions: TAKE ONE TABLET BY MOUTH EVERY DAY carvedilol 3.125 mg tablet 3.125 mg PO BID Qty: 180 3RF Rx Instructions: To take with 6.25mg tab for total dose of 9.375 BID for AFib and HTN Eliquis 5 mg tablet 5 mg PO BID Qty: 180 3RF Hold Instructions: Resume on 07/13/22. Patient Comments: 06/15/19-unable to verify meds, pt left drug list at home and does not know meds/doses. Rx Instructions: anticoagulation for atrial fibrillation gabapentin 300 mg capsule See Rx Instructions .ROUTE .COMPLEX Qty: 360 3RF Dose Instruction: TAKE ONE CAPSULE BY MOUTH EVERY MORNING AND TAKE 1 CAPSULE EVERY AFTERNOON AND TAKE 2 CAPSULES EVERY NIGHT AT BEDTIME FOR NEUROPATHIC PAIN Rx Instructions: TAKE TWO CAPSULE BY MOUTH EVERY MORNING AND TAKE 2 CAPSULES EVERY NIGHT AT BEDTIME FOR NEUROPATHIC PAIN acetaminophen [Tylenol] 325 MG tablet 650 mg PO Q4H PRN PRNQty: 0 0RF Discontinued valacyclovir [Valtrex] 1 gram tablet 1,000 mg PO TID Qty: 21 0RF clotrimazole 10 mg latoya 10 mg mucous membrane TID Qty: 20 0RF Discharge Instructions Instructions: Dehydration (DC) Additional Instructions: Stop Valacyclovir and clortrimazole. Apply acycloivir ointment to spot on your back 5 times a day, cover with tegaderm. Follow up with PCP Stand Alone Forms: Nursing Discharge Form Referrals: Linn Paulino BUS STEWARD [Primary Care Provider] - 04/02/23 11:00 am (Possible rxn to valacyclovir it was discontinued and added to allergy list - she had one small lesion, gave her acyclovir ointment for that lesion. She was fairly dehydrated also. Return to baseline with fluids - no UTI) Activity:: Activity as Tolerated Equipment/Supplies:: No Equipment Needed Diet:: As Tolerated Discharge Orders Discharge Orders: Discharge Order (Routine); Ordered 03/29/23 Ordered By: Sandie Gutiérrez Discharge Data Discharge Date/Time-TO BE ENTERED AT DEPARTURE: 03/29/23 14:29 DS: Summary Time Spent with Patient providing and/or coordinating discharge services: Greater than 30 minutes Status at Discharge Functional status at discharge: independent ambulation Overall status at discharge: patient is back to baseline Mental Status: mental status grossly normal Speech and Movement: speech and movement normal Mood: congruent mood Affect: normal affect Exam Narrative Exam Narrative: General: Patient appears appropriate for age, alert, oriented to person place and time. HEENT: Normocephalic, eyes with pupils equal react light symmetrically, extraocular move intact and sclera anicteric. Oropharynx with dry mucosa. Neck: Supple without JVD. Back: Kyphotic without CVA tenderness. Lungs: Bronchovesicular sounds diffusely with good aeration and no focalizing rales or rhonchi. Breast: Exam deferred. Heart: Regular rate and rhythm with 3/6 to 4/6 holosystolic murmur over apex. No gallops rubs. There is a palpable subcutaneous pacemaker left upper chest. Abdomen: Slightly obese contour, soft nontender to palpation with no palpable hepatosplenomegaly. Bowel sounds positive all quadrants. Genitalia/rectal: Exam deferred. Extremities: Without clubbing, cyanosis or grossly pitting edema. Good cap refill. Skin: Normal color, warm and dry. Single erythematous lesion with dry base of previous vesicular lesion as described by family over the left central back near the spine in the L1 dermatome. Neuro: Cranial nerves II through XII gross intact, no focalizing motor deficits. No tremor. Psych: Flattened affect w no abnormal thought processes. Remote and recent memory intact Psych Mental Status: mental status grossly normal Speech and Movement: speech and movement normal Mood: congruent mood Affect: normal affect DS: Data Vitals/I&O Vitals and I&O: Vital Signs Temperature 37.1 C 03/29/23 11:41 Temperature Source Tympanic 03/29/23 11:41 Pulse 60 03/29/23 11:41 Pulse Rhythm Regular 03/29/23 09:25 Pulse 60 03/28/23 23:30 Respiratory Rate 18 03/29/23 11:41 Respiratory Effort Normal, Non-Labored 03/29/23 09:25 Respiratory Depth Normal 03/29/23 09:25 Respiratory Pattern Normal 03/29/23 09:25 Blood Pressure 119/76 03/29/23 11:41 Blood Pressure Mean 80 03/28/23 23:21 Pulse Oximetry 94 03/29/23 11:41 Oxygen Delivery Method Room Air 03/29/23 11:41 Oxygen Flow Rate 0 03/29/23 11:41 Pain Level 0 03/29/23 11:41 Intake & Output 03/28/23 03/29/23 03/29/23 23:59 11:59 23:59 Intake Total 500 / 500 2250 / 2250 Output Total 500 / 500 Balance 500 / 500 1750 / 1750 Weight 63.503 kg 63.796 kg Intake: IV 500 / 500 2000 / 2000 Oral 250 / 250 Output: Urine 500 / 500 Other: Urine Color Pale Yellow Urine Appearance Clear Urine Odor None Voiding Methods Toilet Incontinent Data Completed and Pending Labs on day of discharge: Labs from last 24 hours 09/18/23 09/18/23 09/18/23 08:10 07:10 07:10 WBC 5.20 RBC 3.79 L Hgb 12.5 Hct 36.9 MCV 97 H MCH 33.0 MCHC 33.9 RDW 12.5 Plt Count 113 L MPV 9.0 Immature Gran % Neutrophils % Lymphocytes % Monocytes % Eosinophils % Basophils % Nucleated RBC % Absolute Neutrophils Absolute Lymphocytes Absolute Monocytes Absolute Eosinophils Absolute Basophils VBG Lactate 1.1 Sodium 140 Potassium 3.9 Chloride 103 Carbon Dioxide 29.7 Anion Gap 7.3 BUN 23 H Creatinine 1.2 H Est GFR (CKD-EPI 2020) 45.48 Glucose 142 H Calcium 10.3 H Magnesium 1.9 Total Bilirubin 0.5 AST 17 ALT 25 Alkaline Phosphatase 40 L Troponin I Total Protein 6.8 Albumin 3.2 L Procalcitonin TSH Urine Color Urine Clarity Urine pH Ur Specific [place] Urine Protein Urine Ketones Urine Blood Urine Nitrite Urine Bilirubin Urine Urobilinogen Ur Leukocyte Esterase Urine RBC Urine WBC Ur Epithelial Cells Urine Crystals Urine Bacteria Urine Mucus Urine Other Ur Culture Indicated? Urine Glucose Urine Opiates Screen Urine Methadone Screen Ur Barbiturates Screen Ur Tricyclics Screen Ur Amphetamines Screen U Benzodiazepines Scrn Urine Cocaine Screen Ur THC Screen Ethyl Alcohol 03/28/23 03/28/23 03/28/23 22:59 20:32 20:20 WBC RBC Hgb Hct MCV MCH MCHC RDW Plt Count MPV Immature Gran % Neutrophils % Lymphocytes % Monocytes % Eosinophils % Basophils % Nucleated RBC % Absolute Neutrophils Absolute Lymphocytes Absolute Monocytes Absolute Eosinophils Absolute Basophils VBG Lactate 1.6 H Sodium Potassium Chloride Carbon Dioxide Anion Gap BUN Creatinine Est GFR (CKD-EPI 2020) Glucose Calcium Magnesium Total Bilirubin AST ALT Alkaline Phosphatase Troponin I Cancelled Total Protein Albumin Procalcitonin 0.2 TSH Urine Color Yellow Urine Clarity Clear Urine pH 5.5 Ur Specific [place] 1.010 Urine Protein Negative Urine Ketones Negative Urine Blood Small H Urine Nitrite Negative Urine Bilirubin Negative Urine Urobilinogen 0.2 Ur Leukocyte Esterase Negative Urine RBC 3-5 H Urine WBC 0-2 Ur Epithelial Cells Few Urine Crystals Negative Urine Bacteria Negative Urine Mucus Negative Urine Other Negative Ur Culture Indicated? No Urine Glucose Negative Urine Opiates Screen Urine Methadone Screen Ur Barbiturates Screen Ur Tricyclics Screen Ur Amphetamines Screen U Benzodiazepines Scrn Urine Cocaine Screen Ur THC Screen Ethyl Alcohol 03/28/23 03/28/23 03/28/23 20:20 19:45 19:45 WBC 5.83 RBC 4.31 Hgb 14.3 Hct 41.9 MCV 97 H MCH 33.2 H MCHC 34.1 RDW 12.5 Plt Count 118 L MPV 9.2 Immature Gran % 0.7 Neutrophils % 66.8 Lymphocytes % 22.3 Monocytes % 8.7 Eosinophils % 1.2 Basophils % 0.3 Nucleated RBC % 0.0 Absolute Neutrophils 3.89 Absolute Lymphocytes 1.30 Absolute Monocytes 0.51 Absolute Eosinophils 0.07 Absolute Basophils 0.02 VBG Lactate Sodium 137 Potassium 4.1 Chloride 100 Carbon Dioxide 28.1 Anion Gap 8.9 BUN 33 H Creatinine 1.7 H Est GFR (CKD-EPI 2020) 29.94 Glucose 120 H Calcium 10.2 H Magnesium 2.2 Total Bilirubin 0.7 AST 20 ALT 30 Alkaline Phosphatase 46 Troponin I < 50 Total Protein 7.5 Albumin 3.7 Procalcitonin TSH 1.00 Urine Color Urine Clarity Urine pH Ur Specific [place] Urine Protein Urine Ketones Urine Blood Urine Nitrite Urine Bilirubin Urine Urobilinogen Ur Leukocyte Esterase Urine RBC Urine WBC Ur Epithelial Cells Urine Crystals Urine Bacteria Urine Mucus Urine Other Ur Culture Indicated? Urine Glucose Urine Opiates Screen Negative Urine Methadone Screen Negative Ur Barbiturates Screen Negative Ur Tricyclics Screen Negative Ur Amphetamines Screen Negative U Benzodiazepines Scrn Negative Urine Cocaine Screen Negative Ur THC Screen Negative Ethyl Alcohol 4.5 PFSH All Active Problems (Updated 03/29/23 @ 05:46 by Cristofer Rosenberg) Oral thrush (Acute) Acute renal insufficiency (Acute) AMS (altered mental status) (Acute) Weakness (Acute) Acute dehydration (Acute) Altered mental status (Acute) Shingles (Acute) Lumbar radiculopathy (Chronic) Acute pain of right hip (Acute) B12 deficiency (Acute) Mitral regurgitation (Chronic ~2021) 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 h/o ECT treatment x1 (per Liliana very effective) b. formerly followed by Chauncey Gracia NP c. On multiple medications d. h/o psychiatric hospitalizations for reported bipolar e. h/o suicide attempts Retinal dot hemorrhage of both eyes (Acute ~10/2019) 08/15/2019 Dr Aliza Eng Osteoporosis (Chronic) See 10/2018 CT T11 compression fracture 2016 DEXA osteopenia [id number]: Boniva x2, which she tolerated, thus switching to Reclast (better outcome data) ASCVD (arteriosclerotic cardiovascular disease) (Chronic) cardiac cath Essential tremor (Chronic 04/02/08) R > L, EVAL UMASHANKAR 2008; MOWCHUN [id number]; responds to low dose propranolol Hyperlipidemia (Chronic 08/17/11) Crestor switched to Atorvastatin per ins Generalized atherosclerosis (Chronic 08/17/11) H/O CABG 1993; Cath 11/2015: all three grafts open; EF 60%; JUANPABLO 02/2015 EF 55% Gouty arthropathy, unspecified (Chronic 08/17/11) Essential hypertension (Chronic 08/17/11) Diabetic neuropathy (Chronic 03/07/15) Dr Robbins DM type 2, controlled, with complication (Chronic) complications: neuropathy, cardiovascular disease Chronic nonalcoholic liver disease (Chronic 08/17/11) Chronic kidney disease, stage III (moderate) (Chronic 08/17/11) Coronary artery disease (Chronic) a. inferior SD 1984 b. SD with CABG 1992 Patient is doing well with no chest pain. Continue on current medications. senior care current use of 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 (Chronic) Apixaban for AF GERD (gastroesophageal reflux disease) (Chronic) Severe anxiety with panic (Chronic) L-T BZD Rx Medical History Caregiver burden ; 02/2022 Chest pain Chronic atrial fibrillation (11/19/15) s/p Ablation 02/2016 Chronic fatigue syndrome Chronic pain Back; L-T Tramadol RX (which was discont 2018); h/o compression fractures Diarrhea [facility] [place] 2019; Kefir & Psyllium husk help Fracture of rib of right side (08/26/15) Fracture of right shoulder (08/26/15) Frequent falls (04/05/17) Hematoma Hypokalemia Mid back pain compression fx Primary osteoarthritis of right knee (08/24/16) Prolonged MD interval Sleeping difficulty (07/01/15) Improved on Mirtaz 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 declined ablation at [facility] [place] Patient's dual-chamber pacemaker is functioning normally with ample generator life remaining. She has had no further PAF episodes noted. Her presenting rhythm is atrial pacing and underlying rhythm is sinus bradycardia. No reprogramming needed. She does not use remote monitoring. Trigger finger, left middle finger Trigger finger, left ring finger Trigger finger, right ring finger Unexplained weight loss GI work-up NEG; Mirtaz helped Surgical History Ablation for A Fib (03/10/16) Catheter ablatioin for A Flutter and catheter ablatiion for A Fib; [facility] [place] David King cardiac catheterization (11/27/14) 3 vessel disease, occluded, Grafts: mammary artery and 2 venous grafts are all open. cardioversion (07/20/14) Dr Garcia, [facility] Extraction of cataract (11/11/15) L cataract Jayme R cataract-Dr Hutson H/O surgical procedure a. left cataract surgery b. Duane fundoplication c. carpal tunnel syndrome d. bilateral tubal ligation e. hysterectomy f. arthroscopy left knee 09/2011 g. s/p breast reduction History of hysterectomy Pacemaker (09/05/15) [facility] [place] MEDTRONIC DUAL CHAMBER Replacement of total knee joint (09/14/11) CELESTE LEFT TKA Trigger Finger release R 4th digit Family History Mother , perf ulcer at age 78. Hip fracture mother from complications of hip fracture Father , stroke at age 80. No problems noted. Sister No problems noted. Social History Smoking/Tobacco Use Status: Never Second Hand Exposure: No Smoking risk assessment performed?: Yes Alcohol Intake: never Drug use: Never Substance use type: does not use Adopted: No (raised by Aunt and Uncle) Caregiver/Support person: Yes (youngest daughter: Jacquelyn Chavira is healthcare agent ph:[phone]) Foster care: No Household members: spouse Housing: house Number of Children: 4 Current gender identity: female What is your relationship status?: Panel score (0-1 are the most socially isolated patients): 1 What type of physical activity do you participate in: additional Details: gardening, playing with dog Shasta/Restorationism: Zoroastrianism Seatbelt use: always Drive intox or ride w/intox racecar driver: No Water heater temp set <120 deg: Yes Working smoke detector in home: Yes Fire extinguisher in home: Yes Carbon monox detector in home: Yes Firearms in home: Yes Do you feel safe at home: Yes Do you feel safe in your relationship?: Yes History History 5 Para Hx # Term Pregnancies 4 Multiple births Hx # Pregnancies Ectopic pregnancies AB induced Hx Number of Living Children AB spontaneous Time Spent with Patient Time Spent with Patient: 45-69 minutes Time was spent: preparing to see the patient(eg.review tests), ordering medications,tests, procedures, referring, communicating with other health career services assistant, indepentently interpreting results, counseling the patient and care coordination
--- NOTE | 2023-03-29 13:47 | PDOC.CMDIS ---
Date of service: 03/29/23 Time of Service: 13:47 LACE Index Scoring Tool Questions: Length of Stay (in days): 1 Was the patient admitted via the E.D.?: Yes Care Management Discharge Plan Reason for Hospitalization: Acute renal insufficiency, AMS, weakness Discharge Plan: Liliana is discharged home with resumption of H PT services. She is driven via private vehicle with family. Liliana will follow up with her PCP and discharge plan of care as instructed. Patient/Family Education Needs: Review discharge instruction, limitation, medications and plan to follow up with his community providers. Discuss ask me three and goals of self care. Services Needed at Discharge: Home Health Care Services (Resumption of [facility] PT)
--- NOTE | 2023-03-29 14:23 | PT.INIE ---
PT Notes Visit Reasons: AMS, Acute Dehydration Inpatient Physical Therapy Evaluation Date: 03/29/23 Referring Doctor: Sandie Gutiérrez NP PT Orders: PT CONSULT: safety consult for discharge Precautions: standard Patient Profile/Admitting Diagnosis: Patient admitted 03/28/23 after presenting to ER with sleepiness and altered mental status. She was found to be dehydrated, and admitted for observation. PT consult requested prior to discharge. Social History/Home Situation: Patient lives in a private home with family support. Has a daughter staying with her, as well as her 95 year old aunt. She has a single LIZ the home. Normally ambulates independently, using a cane on occasion. Equipment Owned/DME: FWW, cane Subjective: Liliana states that she is looking forward to going home. Her granddaughter is present for evaluation and states that family will be staying with Liliana upon return home. They have HH PT set up for consult later this week. Liliana admits to 3 falls in the past year. She additionally reports chronic issues with her eyes, making it very difficult to keep her eyes open. States that her vision is limited and she struggles with light sensitivity. Objective: General Observation: Resting in chair with eyes closed. Opens intermittently, but requires cues to keep them open, including during ambulation. Mental Status: A&Ox3 Pain: denies ROM: Right Upper Extremity: WFL Left Upper Extremity: WFL Right Lower Extremity: WFL Left Lower Extremity: WFL Strength: Right Upper Extremity: Shoulder flexion 4+/5. Biceps 4+/5. Triceps 4/5. Geometry Teacher is strong and equal. Left Upper Extremity: Shoulder flexion 4+/5. Biceps 4+/5. Triceps 4/5. Geometry Teacher is strong and equal. Right Lower Extremity: Hip flexion 5/5. Quads 5/5. HS 4+/5. Ankle DF 5/5. Left Lower Extremity: Hip flexion 5/5. Quads 5/5. HS 4+/5. Ankle DF 4/5. Bed Mobility/Transfers: sit-stand: supervision stand-sit: supervision Gait: Ambulates 100' with CGA, no AD. Initially demonstrates good gait mechanics, although increasing path deviation with distance. Suffers single LOB requiring mod A for recovery. Patient requires continuous cues to maintain eyes open during ambulation. Transitioned to use of FWW, where she demonstrates 30' of ambulation without LOB, although with need for continued cues for path and keeping eyes open. Balance: Static Sitting: good Dynamic Sitting: good Static Standing: fair Dynamic Standing: fair 4-Position Balance Test: 0/4 Small VERENA: 0 seconds (requires assistance to attain position, and unable to hold independently) Partial Tandem: 0 seconds Full Tandem: 0 seconds Single Leg Stance: 0 seconds Special Tests: Mobility Limitations Standardized Measure [facility] AM-PAC 6 clicks Basic Mobility Inpatient Short Form: Raw Score: 21 Standardized Score: 29% impairment Informed Consent/Education: Patient instructed in purpose of PT consult and plan of care. Assessment: Patient is an 83 year old female referred to physical therapy services for safety consultation prior to discharge. Patient presents with acute on chronic balance impairments, with 0/4 on 4-Position Balance test today. She does have visual impairment along with multiple medical co-morbidities and h/o falls, and is at high risk for future falls. She demonstrated significantly improved mobility and safety with use of FWW, however, will require SBA from family for all ambulation, which she and her granddaughter verbalize agreement to. She is appropriate for d/c home with assistive device and family support, along with PT which is already scheduled for later this week. She currently demonstrates the following impairment level findings: 1. decreased balance 2. visual impairment impacting safety and balance 3. h/o falls Impairments are contributing to the following functional limitations: 1. high risk for future falls 2. gait impairment Patient is assessed as Low 25085 complexity based on the following: History: as above. Examination: functional limitations as noted above Presentation: evolving Decision Making: low complexity Plan of Care/Treatment Plan: D/C home with family support. Requires use of FWW and SBA from family for ambulation. DISCHARGE RECOMMENDATIONS: Home with HH PT TREATMENT CODE/TIME: [id number] ([id number]) Thank you for the opportunity to participate in this patient's care. 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 h/o ECT treatment x1 (per Liliana very effective) b. formerly followed by Chauncey Gracia NP c. On multiple medications d. h/o psychiatric hospitalizations for reported bipolar e. h/o suicide attempts Retinal dot hemorrhage of both eyes (Acute ~10/2019) 08/15/2019 Dr Aliza Eng Osteoporosis (Chronic) See 10/2018 CT T11 compression fracture 2016 DEXA osteopenia [id number]: Boniva x2, which she tolerated, thus switching to Reclast (better outcome data) ASCVD (arteriosclerotic cardiovascular disease) (Chronic) cardiac cath Essential tremor (Chronic 04/02/08) R > L, LEVYAL PRICE 2008; MOWCHUN [id number]; responds to low dose propranolol Hyperlipidemia (Chronic 08/17/11) Crestor switched to Atorvastatin per ins Generalized atherosclerosis (Chronic 08/17/11) H/O CABG 1993; Cath 11/2015: all three grafts open; EF 60%; JUANPABLO 02/2015 EF 55% Gouty arthropathy, unspecified (Chronic 08/17/11) Essential hypertension (Chronic 08/17/11) Diabetic neuropathy (Chronic 03/07/15) Dr Robbins DM type 2, controlled, with complication (Chronic) complications: neuropathy, cardiovascular disease Chronic nonalcoholic liver disease (Chronic 08/17/11) Chronic kidney disease, stage III (moderate) (Chronic 08/17/11) Coronary artery disease (Chronic) a. inferior PA 1984 b. PA with CABG 1992 Patient is doing well with no chest pain. Continue on current medications. 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) Apixaban for AF GERD (gastroesophageal reflux disease) (Chronic) Severe anxiety with panic (Chronic) L-T BZD Rx Medical History Caregiver burden ; 02/2022 Chest pain Chronic atrial fibrillation (11/19/15) s/p Ablation 02/2016 Chronic fatigue syndrome Chronic pain Back; L-T Tramadol RX (which was discont 2018); h/o compression fractures Diarrhea [facility] GI 2020; Kefir & Psyllium husk help Fracture of rib of right side (08/26/15) Fracture of right shoulder (08/26/15) Frequent falls (04/05/17) Hematoma Hypokalemia Mid back pain compression fx Primary osteoarthritis of right knee (08/24/16) Prolonged IL interval Sleeping difficulty (07/01/15) Improved on Mirtaz 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 declined ablation at [facility] Patient's dual-chamber pacemaker is functioning normally with ample generator life remaining. She has had no further PAF episodes noted. Her presenting rhythm is atrial pacing and underlying rhythm is sinus bradycardia. No reprogramming needed. She does not use remote monitoring. Trigger finger, left middle finger Trigger finger, left ring finger Trigger finger, right ring finger Unexplained weight loss GI work-up NEG; Mirtaz helped Surgical History Ablation for A Fib (03/10/16) Catheter ablatioin for A Flutter and catheter ablatiion for A Fib; [facility] Dr David King cardiac catheterization (11/27/14) 3 vessel disease, occluded, Grafts: mammary artery and 2 venous grafts are all open. cardioversion (07/20/14) Dr Garcia, [facility] Extraction of cataract (11/11/15) L cataract Jayme R cataract-Dr Hutson H/O surgical procedure a. left cataract surgery b. Duane fundoplication c. carpal tunnel syndrome d. bilateral tubal ligation e. hysterectomy f. arthroscopy left knee 09/2011 g. s/p breast reduction History of hysterectomy Pacemaker (09/05/15) [facility], [employer] DUAL CHAMBER Replacement of total knee joint (09/14/11) CELESTE LEFT TKA Trigger Finger release R 4th digit
== END 2023-03-29 14:29 | disposition home or self-care (01) ==
LOC: ER 22:40 → MS 23:51
PROVIDERS: Admitting Provider Family Medicine; Emergency Provider Physician Assistant; PCP Nurse Practitioner Adult Health; Visit Provider Family Medicine
DX: R41.82 Altered mental status, unspecified (principal); T37.5X5A Adverse effect of antiviral drugs, initial encounter; B37.0 Candidal stomatitis; E86.0 Dehydration; M54.16 Radiculopathy, lumbar region; I25.10 Atherosclerotic heart disease of native coronary artery without angina pectoris; E87.20 Acidosis, unspecified; N18.30 Chronic kidney disease, stage 3 unspecified; E11.22 Type 2 diabetes mellitus with diabetic chronic kidney disease; Z95.1 Presence of aortocoronary bypass graft; Z95.0 Presence of cardiac pacemaker; Z66 Do not resuscitate; B02.29 Other postherpetic nervous system involvement; E53.8 Deficiency of other specified B group vitamins; I34.0 Nonrheumatic mitral (valve) insufficiency; R53.1 Weakness; R41.3 Other amnesia; M81.0 Age-related osteoporosis without current pathological fracture; F32.A Depression, unspecified; G25.0 Essential tremor; K75.81 Nonalcoholic steatohepatitis (NASH); K21.9 Gastro-esophageal reflux disease without esophagitis; F41.0 Panic disorder [episodic paroxysmal anxiety]; E11.40 Type 2 diabetes mellitus with diabetic neuropathy, unspecified; E78.5 Hyperlipidemia, unspecified; G93.32 Myalgic encephalomyelitis/chronic fatigue syndrome; E87.6 Hypokalemia; G89.29 Other chronic pain; I49.5 Sick sinus syndrome; Z96.652 Presence of left artificial knee joint
CPT/HCPCS: 36415; 80053; 80307; 84145; 85027; 93005; 96360; 97161; 99285; 70450; 71046; 80320; 81003; 81015; 83605; 83735; 84443; 84484; 85025; 93010; 99223; 99239; G0378; J3490

== ENCOUNTER → 2023-04-14 14:52 | Outpatient (BNVA) | payer MEDICARE, BC, SELFPAY | PROVIDERS: PCP Nurse Practitioner Adult Health; Visit Provider Internal Medicine Cardiovascular Disease | DX: Z45.018 Encounter for adjustment and management of other part of cardiac pacemaker (principal) | CPT/HCPCS: 93280 ==

== ENCOUNTER 2023-05-12 05:31 | Outpatient (CLI) | payer MEDICARE, BC, SELFPAY ==
[2023-05-12 13:36] LABS: HCT 35.1 % (36.0-46.0); HGB 11.8 g/dL (11.2-15.7); MCH 33.1 pg (27.0-33.0); MCHC 33.6 % (32.0-36.0); MCV 99 fL (80-95); MPV 9.2 fL (8.0-11.0); Platelet Count 148 10^3/uL (130-400); RBC 3.56 10^6/uL (3.93-5.22); RDW 12.6 % (11.7-14.6); RDW-SD 45.8 fL; WBC 5.81 10^3/uL (4.4-10.8)
[2023-05-12 14:07] LABS: Anion Gap 9.1 mmol/L (3-11); BUN 23 mg/dL (7-18); CO2 26.9 mmol/L (21.0-32.0); Calcium 10.3 mg/dL (8.5-10.1); Chloride 103 mmol/L (98-107); Glucose 141 mg/dL (74-106); Potassium 4.3 mmol/L (3.5-5.1); Sodium 139 mmol/L (136-145)
== END 2023-05-12 05:32 | disposition home or self-care (01) ==
LOC: LBO 05:31
PROVIDERS: PCP Nurse Practitioner Adult Health; Visit Provider Nurse Practitioner Adult Health
DX: D69.6 Thrombocytopenia, unspecified (principal); F43.21 Adjustment disorder with depressed mood; Z51.81 Encounter for therapeutic drug level monitoring
CPT/HCPCS: 36415; 80048; 85027

== ENCOUNTER → 2023-05-24 14:36 | Outpatient (BNVA) | payer MEDICARE, BC, SELFPAY | PROVIDERS: PCP Nurse Practitioner Adult Health; Referring Provider Nurse Practitioner Adult Health; Visit Provider Podiatrist | DX: B35.1 Tinea unguium (principal); L60.3 Nail dystrophy; E11.42 Type 2 diabetes mellitus with diabetic polyneuropathy; M25.572 Pain in left ankle and joints of left foot; M79.675 Pain in left toe(s); G89.29 Other chronic pain; I25.10 Atherosclerotic heart disease of native coronary artery without angina pectoris; Z79.01 Long term (current) use of anticoagulants; L84 Corns and callosities | CPT/HCPCS: 11721; 20600; 99213; J0702 ==

== ENCOUNTER 2023-07-21 04:46 | Outpatient (CLI) | payer MEDICARE, BC, SELFPAY ==
[2023-07-21 11:28] LABS: Abs Immature Grans 0.01 10^3/uL (0.0-0.06); Absolute Basophil Count 0.03 10^3/uL (0.0-0.2); Absolute Eosinophil Count 0.07 10^3/uL (0.0-0.7); Absolute Lymphocyte Count 1.57 10^3/uL (1.2-3.4); Absolute Monocyte Count 0.39 10^3/uL (0.1-0.8); Absolute Neutrophil Count 3.28 10^3/uL (1.2-6.7); Basophils % 0.6; Eosinophils % 1.3; HCT 36.3 % (36.0-46.0); HGB 12.4 g/dL (11.2-15.7); Immature Grans % 0.2; Lymphocytes % 29.3; MCH 33.3 pg (27.0-33.0); MCHC 34.2 % (32.0-36.0); MCV 98 fL (80-95); MPV 8.8 fL (8.0-11.0); Monocytes % 7.3; Neutrophils % 61.3; Platelet Count 143 10^3/uL (130-400); RBC 3.72 10^6/uL (3.93-5.22); RDW-SD 42.9 fL; WBC 5.35 10^3/uL (4.4-10.8)
[2023-07-21 11:52] LABS: ALT 20 U/L (14-59); AST 18 U/L (15-37); Albumin 3.7 g/dL (3.4-5.0); Alkaline Phosphatase 29 U/L (46-116); Anion Gap 6.7 mmol/L (3-11); BUN 20 mg/dL (7-18); Bilirubin, Total 0.7 mg/dL (0.2-1.0); CO2 28.3 mmol/L (21.0-32.0); CREATININE 1.1 mg/dL (0.55-1.02); Chloride 106 mmol/L (98-107); Estimated GFR 50.48 (mL/min/1.73m2); Glucose 159 mg/dL (74-106); Potassium 4.1 mmol/L (3.5-5.1); Sodium 141 mmol/L (136-145); Total Protein 7.2 g/dL (6.4-8.2)
[2023-07-21 17:05] LABS: Ionized Calcium 1.32 mmol/L (1.14-1.35)
[2023-07-21 17:55] LABS: Parathyroid Hormone,Intact 100 pg/mL (19-88)
[2023-07-22 09:23] LABS: Prealbumin 31 mg/dL (20-40)
== END 2023-07-21 04:47 | disposition home or self-care (01) ==
LOC: LBO 04:47
PROVIDERS: PCP Nurse Practitioner Adult Health; Visit Provider Nurse Practitioner Adult Health
DX: E83.52 Hypercalcemia (principal); R53.83 Other fatigue
CPT/HCPCS: 36415; 80053; 82330; 83970; 84134; 85025

== ENCOUNTER 2023-09-22 04:11 | Outpatient (CLI) | payer MEDICARE, BC, SELFPAY ==
[2023-09-22 12:46] LABS: Calcium 9.2 mg/dL (8.5-10.1); PHOSPHORUS 3.5 mg/dL (2.6-4.7)
[2023-09-22 17:10] LABS: Ionized Calcium 1.22 mmol/L (1.14-1.35)
[2023-09-22 22:49] LABS: Parathyroid Hormone,Intact 142 pg/mL (19-88)
== END 2023-09-22 04:12 | disposition home or self-care (01) ==
LOC: LBO 04:11
PROVIDERS: Absent Provider Nurse Practitioner Adult Health; PCP Nurse Practitioner Adult Health; Referring Provider Nurse Practitioner Adult Health; Visit Provider Nurse Practitioner Adult Health
DX: E83.52 Hypercalcemia (principal)
CPT/HCPCS: 36415; 82310; 82330; 83970; 84100

== ENCOUNTER 2023-11-18 01:04 | Outpatient (CLI) | payer MEDICARE, BC, SELFPAY ==
[2023-11-18 11:14] LABS: Hemoglobin A1C 6.3 % (<5.7)
[2023-11-18 11:56] LABS: Vitamin D 25 Total 48.7 ng/mL (30-100)
[2023-11-18 20:22] LABS: Parathyroid Hormone,Intact 114 pg/mL (19-88)
== END 2023-11-18 01:05 | disposition home or self-care (01) ==
LOC: LBO 01:04
PROVIDERS: Absent Provider Nurse Practitioner Adult Health; PCP Nurse Practitioner Adult Health; Referring Provider Nurse Practitioner Adult Health; Visit Provider Nurse Practitioner Adult Health
DX: E83.52 Hypercalcemia (principal); R79.89 Other specified abnormal findings of blood chemistry
CPT/HCPCS: 36415; 82306; 83036; 83970

== ENCOUNTER → 2024-01-04 02:14 | Outpatient (CLI) | payer MEDICARE, BC, SELFPAY ==
--- NOTE | 2024-01-04 06:15 | DI.NM_ITS ---
Exam(s) NM PARATHYROID SCAN CLINICAL HISTORY: ? adenoma/mass,elevated parathyroid hormone,r79.89. COMPARISON: No exams were available for comparison EXAMINATION: Injected Dose: 25 mCi Tc-99m sestamibi Initial Images: 15 minutes Delayed images: 5 hours FINDINGS: Initial imaging demonstrates symmetric thyroid uptake. Symmetric salivary gland uptake. Delayed kevin ging demonstrates no evidence of parathyroid adenoma. IMPRESSION: 1. No evidence of parathyroid adenoma.
== END ==
PROVIDERS: PCP Nurse Practitioner Adult Health; Visit Provider Nurse Practitioner Adult Health
DX: R79.89 Other specified abnormal findings of blood chemistry (principal)
CPT/HCPCS: 78070

== ENCOUNTER 2024-01-19 20:43 | Emergency (ER) | payer MEDICARE, BC, SELFPAY ==
[2024-01-19] VITALS (17 sets, daily range): BP systolic 161–187; BP diastolic 85–127; PULSE 71–109; RESP 9–21; TEMP 36.7–37.2; O2SAT 93–98
--- NOTE | 2024-01-19 20:30 | RT.EKG_ITS ---
APPROVED REPORT Exam: Resting ECG Reason for Exam: per ems Patient Location: E HR:106 bpm ECG Measurements Heart Rate 106 AXIS NV 188 P -70 QRSd 111 QRS 77 QT 338 T 237 QTc 445 Conclusion Sinus or ectopic atrial tachycardia...P axis (-45,135), rate> 99 Atrial premature complex...SV complex w/ short R-R interval Inferior infarct, age indeterminate...Q>35mS, T neg, II III aVF Nonspecific T abnormalities, lateral leads...T <-0.10mV, I aVL V5 V6 Physician: no stemi
--- NOTE | 2024-01-19 21:00 | DI.CT_ITS ---
Exam(s) CT CERVICAL SPINE WO EXAM: CT CERVICAL SPINE WO CLINICAL HISTORY: back pain s/p fall. TECHNIQUE: Imaging Protocol: Axial computed tomography images with coronal and sagittal reformatted images were created and reviewed CONTRAST MATERIAL: Noncontrast COMPARISON: CT CT THORACIC LUMBAR SPINE WO from 01/19/2024 FINDINGS: Bones: No fracture or dislocations are seen. The alignment of the cervical spine is normal including the cervicovertebral junction and cervicothoracic junction. Degenerative changes. Soft Tissues: The soft tissues of the neck are unremarkable. No large disk herniations are identified . The visualized portions of the lung apices are clear. No pneumothorax is seen. Carotid artery charlene cifications. IMPRESSION: Degenerative changes. No acute abnormality RADIATION DOSE DELIVERED: Total DLP DATA REPOSITORY: All CT scans at this facility are submitted to the National Radiology Data Registry (NRDR) Dose Index Registry (DIR) with the [employer] ([employer]). RADIATION OPTIMIZATION: All CT scans at this facility use at least one of these dose optimization te chniques: automated exposure control; mA and/or kV adjustment per patient size (includes targeted exa ms where dose is matched to clinical indication); or iterative reconstruction.
--- NOTE | 2024-01-19 21:00 | DI.CT_ITS ---
Exam(s) CT THORACIC LUMBAR SPINE WO EXAM: CT THORACIC LUMBAR SPINE WO CLINICAL HISTORY: fall, thoracic back pain. TECHNIQUE: Imaging Protocol: Axial, coronal and sagittal images were reconstructed utilizing bone an d soft tissue algorithm.. COMPARISON: CT CT HEAD CERVICAL SPINE WO from 10/29/2021 CR XR LUMBAR SPINE COMPLETE from 03/04/2023 CR,XR XR CHEST 2V PA LATERAL from 03/28/2023 FINDINGS: Thoracic spine: Bones: Stable mild anterior wedging of the T10 vertebral body. No acute fractures are seen. The alig nment of the spine is normal including the cervicothoracic junction. Soft tissues: The soft tissues of the chest are unremarkable. No large disk herniations are identifie d. Pacemaker leads are coronary artery calcifications. Aortic calcifications. Lumbar spine: No fracture is identified. Degenerative disc changes and facet degenerative changes are present. Sc hmorl's node superior endplate L3. Soft tissues: There is no large disc herniation. No paraspinal hematoma. Sigmoid diverticulosis. Bladder is unremarkable where visualized. Atrophy upper pole right kidney . IMPRESSION: No acute abnormality of the thoracic or lumbar spine. RADIATION DOSE DELIVERED: Total DLP DATA REPOSITORY: All CT scans at this facility are submitted to the National Radiology Data Registry (NRDR) Dose Index Registry (DIR) with the [employer] ([employer]). RADIATION OPTIMIZATION: All CT scans at this facility use at least one of these dose optimization te chniques: automated exposure control; mA and/or kV adjustment per patient size (includes targeted exa ms where dose is matched to clinical indication); or iterative reconstruction.
--- NOTE | 2024-01-19 21:02 | DI.RAD_ITS ---
Exam(s) XR CHEST 2V PA LATERAL EXAM: XR CHEST 2V PA LATERAL CLINICAL HISTORY: dizziness TECHNIQUE: 2D digital imaging was performed. Two views. COMPARISON: CR,XR XR CHEST 2V PA LATERAL from 03/28/2023 FINDINGS: HEART: Enlarged. Pacemaker peer Aorta: Calcified and tortuous. PULMONARY VASCULATURE: Normal. MEDIASTINUM: Unremarkable. LUNGS: Fibrotic changes. No focal infiltrate or overt pulmonary edema. PLEURAL SPACE: No pleural effusion or pneumothorax. BONE:Unremarkable for age. SOFT TISSUES: Unremarkable. IMPRESSION: No acute abnormality. DATA REPOSITORY: RADIATION DOSE DELIVERED:
--- NOTE | 2024-01-19 21:04 | ED.GENADUL_ITS ---
Discharge Plan Disposition Patient Disposition: Home Condition: Stable Discharge Details Clinical Impression: Back pain Primary Care Provider: Linn Paulino ED Provider: Jana Shrestha Home Meds and New Rx's Prescriptions: Continued zoledronic fync-brhuiwwc-ulkbi [Reclast] 5 mg/100 mL piggyback See Rx Instructions IV .once per year Qty: 100 0RF Hold Instructions: Elevated PTH Rx Instructions: 100mL IV .once per year; administer over at least 15 mins mupirocin 2 % ointment 1 applic topical BID Qty: 15 1RF Rx Instructions: May substitute with cream if less expensive; apply thin layer to corners of the mouth until area/lesion resolved nystatin 100,000 unit/gram cream 1 applic TP BID PRN (Reason: robin rash) Qty: 30 0RF Rx Instructions: Apply to affected area on abdomen lorazepam 0.5 mg tablet 0.5 mg PO DAILY MDD 1mg/24h PRN (Reason: acute anxiety) Qty: 30 5RF Rx Instructions: acute anxiety/panic/grief metamucil 1 unit PO DAILY PRN Qty: 30 0RF losartan 50 mg tablet 50 mg PO DAILY Qty: 90 3RF Rx Instructions: Blood pressure--dose decrease 12/22/23 to 50mg daily (rather than BID) for BP goal <140/90 nitroglycerin [Nitrostat] 0.4 mg tablet, sublingual 0.4 mg Sublingual Q5 MIN PRN X3 PRN (Reason: chest pain) Qty: 20 1RF Patient Comments: 06/15/19-unable to verify meds, pt left drug list at home and does not know meds/doses. Rx Instructions: Q5min, x3 max, PRN chest pressure gabapentin 300 mg capsule 300 mg PO BID Qty: 180 3RF Rx Instructions: Dose decrease 04/19/23 amlodipine 5 mg tablet 5 mg PO HS Qty: 90 3RF Rx Instructions: Dose reduced 04/19/23 omeprazole 20 mg tablet,delayed release (DR/EC) 20 mg PO .every other day MDD 20mg/24h Qty: 45 3RF Rx Instructions: Take on empty stomach every other day for atypical chest pain/heartburn ketoconazole 2 % cream 1 applic topical DAILY 90 Days Qty: 60 3RF Rx Instructions: Apply to toenails once daily atorvastatin 40 mg tablet See Rx Instructions .ROUTE .COMPLEX Qty: 90 3RF Dose Instruction: TAKE ONE TABLET BY MOUTH EVERY DAY Rx Instructions: TAKE ONE TABLET BY MOUTH EVERY DAY carvedilol 3.125 mg tablet 3.125 mg PO BID Qty: 180 3RF Rx Instructions: To take with 6.25mg tab for total dose of 9.375 BID for AFib and HTN carvedilol 6.25 mg tablet See Rx Instructions .ROUTE .COMPLEX Qty: 180 3RF Dose Instruction: TAKE 1 TABLET BY MOUTH TWO TIMES A DAY WITH 3.125MG TABLET Rx Instructions: TAKE 1 TABLET BY MOUTH TWO TIMES A DAY WITH 3.125MG TABLET Eliquis 5 mg tablet 5 mg PO BID Qty: 180 3RF Hold Instructions: Resume on 07/13/22. Patient Comments: 06/15/19-unable to verify meds, pt left drug list at home and does not know meds/doses. Rx Instructions: anticoagulation for atrial fibrillation lamotrigine 100 mg tablet See Rx Instructions .ROUTE .COMPLEX Qty: 180 3RF Dose Instruction: TAKE ONE TABLET BY MOUTH TWICE A DAY Rx Instructions: TAKE ONE TABLET BY MOUTH TWICE A DAY citalopram 20 mg tablet See Rx Instructions .ROUTE .COMPLEX Qty: 90 3RF Dose Instruction: TAKE ONE TABLET BY MOUTH EVERY DAY AT BEDTIME Rx Instructions: TAKE ONE TABLET BY MOUTH EVERY DAY AT BEDTIME metformin 500 mg tablet extended release 24 hr See Rx Instructions .ROUTE .COMPLEX Qty: 90 3RF Hold Instructions: Patient Refused Dose Instruction: TAKE ONE TABLET BY MOUTH EVERY DAY, TAKE WITH LARGEST MEAL OF THE DAY FOR DIABETES Rx Instructions: TAKE ONE TABLET BY MOUTH EVERY DAY, TAKE WITH LARGEST MEAL OF THE DAY FOR DIABETES (DME) Accu-Chek Guide test strips Strip See Rx Instructions .Route Qty: 100 3RF Rx Instructions: to check blood glucose daily. No insulin. DX E11.9 to maintain HbA1c less than 7% (DME) blood-glucose meter [Accu-Chek Guide Glucose Meter] Mis See Rx Instructions .Route Qty: 1 0RF Rx Instructions: to check blood glucose daily. DX: E11.9 to maintain HbA1c less than 7% (DME) lancets [Accu-Chek Softclix Lancets] Mis See Rx Instructions .Route Qty: 100 3RF Rx Instructions: to check blood glucose daily. no insulin. DX:E11.9 to maintain HbA1c less than 7% mirtazapine 7.5 mg tablet 7.5 mg PO QHS Qty: 90 3RF urea 40 % cream See Rx Instructions .ROUTE .COMPLEX Qty: 85 1RF Dose Instruction: APPLY TOPICALLY AT BEDTIME NEEDED FOR SKIN IRRITATION Rx Instructions: APPLY TOPICALLY AT BEDTIME NEEDED FOR SKIN IRRITATION acetaminophen [Tylenol] 325 MG tablet 650 mg PO Q4H PRN PRNQty: 0 0RF acyclovir 5 % Ointment 15 g topical 5X/DAY Qty: 0 0RF Discharge Instructions Additional Instructions: Please call your primary care provider first thing in the morning to schedule follow-up appointment in the next couple of days if you are not feeling significantly better; in a week or 2 if you are not feeling okay.. Your workup today was reassuring. There is no fracture noted on CT scan. Return to emergency care if you develop new leg weakness, headache, dizziness, nausea/vomiting, difficulty breathing, change in bowel or bladder function, or if you are very worried and need to be rechecked again immediately HPI General Date/Time Provider Initiated Documentation: 01/19/24 20:46 . HPI Narrative: Liliana is an 83-year-old female with extensive cardiac history, A-fib on anticoagulation, pacemaker placement, T2DM, CKD stage III, and osteoporosis with compression fractures who presents to the emergency department today for evaluation of fall. She reports that she was taking her dog out this evening when she lost her balance and fell, landing on her back. She reports that she felt spasms in her back immediately afterwards, as well as dizziness. She denies hitting her head, denies headache, head, or neck pain. While she was laying down she did have some intermittent dizziness. She says that she does occasionally get dizziness, especially with standing up. This was not associated with chest pains, shortness of breath, or nausea/vomiting. Reports that she has otherwise been feeling well, denies recent illness such as fever/chills, cough, abdominal pain, change in bowel or bladder function. Daughter is at bedside as well. Physical exam very reassuring. She does have tenderness to palpation of mid and lower thoracic spine, no obvious step-offs deformities noted. Easy work of breathing, lung sounds clear bilaterally. Irregularly irregular heart rate noted. Abdomen is soft, nondistended, nontender to palpation. Head is atraumatic. EOMs intact. Clear speech. Patient is alert and oriented, no acute distress. Moving all extremities equally. DDx includes but is not limited to: thoracic vertebral fracture, ACS, electrolyte imbalance, dehydration I independently interpreted the following tests: EKG notable for sinus tachyc ardia, HR 106. Nonspecific T wave inversions. CBC, CMP, serial troponins all reassuring. CT of C-spine/T-spine/L-spine all negative, no acute bony pathology noted. Chest x-ray notable for mild cardiomegaly, no significant vascular congestion. While in the emergency department Liliana had lidocaine patch placed for comfort. Overall workup today reassuring. Likely musculoskeletal pain, probable contusion and muscle strain. Recommend f/u with PCP for further evaluation and mgmt. reviewed red flags indicate need for return to emergency care Related Data Home Medications Medication Instructions Recorded Confirmed acetaminophen 325 mg tablet 650 mg (2 x 325 mg) PO Q4H PRN PRN 01/15/16 01/19/24 (Tylenol) #0 tabs zoledronic acid 5 mg/100 mL in See Rx Instructions IV .once per 06/23/21 01/19/24 mannitol 5 %-water intravenous year #100 mL piggybck (Reclast) nitroglycerin 0.4 mg sublingual 0.4 mg sublingual Q5 MIN PRN X3 04/15/22 01/19/24 tablet (Nitrostat) PRN chest pain #20 tabs mupirocin 2 % topical ointment 1 applic topical BID #15 grams 05/13/22 01/19/24 omeprazole 20 mg tablet,delayed 20 mg PO .every other day #45 tabs 02/24/23 01/19/24 release acyclovir 5 % topical ointment 15 g topical 5X/DAY #0 grams 03/29/23 01/19/24 amlodipine 5 mg tablet 5 mg PO HS #90 tabs 04/19/23 01/19/24 gabapentin 300 mg capsule 300 mg PO BID #180 caps 04/19/23 01/19/24 ketoconazole 2 % topical cream 1 applic topical DAILY 3 months 05/24/23 01/19/24 #60 grams nystatin 100,000 unit/gram topical 1 applic topical BID PRN robin 07/07/23 01/19/24 cream rash #30 grams carvedilol 6.25 mg tablet See Rx Instructions .Route 07/20/23 01/19/24 .COMPLEX #180 tabs apixaban 5 mg tablet (Eliquis) 5 mg PO BID #180 tabs 07/28/23 01/19/24 lamotrigine 100 mg tablet See Rx Instructions .Route 08/16/23 01/19/24 .COMPLEX #180 tabs citalopram 20 mg tablet See Rx Instructions .Route 08/23/23 01/19/24 .COMPLEX #90 tabs metformin 500 mg tablet,extended See Rx Instructions .Route 08/26/23 01/19/24 release 24 hr .COMPLEX #90 tabs atorvastatin 40 mg tablet See Rx Instructions .Route 09/15/23 01/19/24 .COMPLEX #90 tabs carvedilol 3.125 mg tablet 3.125 mg PO BID #180 tabs 09/15/23 01/19/24 blood sugar diagnostic (Accu-Chek #100 ea 10/04/23 01/19/24 Guide test strips) blood-glucose meter (Accu-Chek #1 ea 10/04/23 01/19/24 Guide Glucose Meter) lancets (Accu-Chek Softclix #100 ea 10/04/23 01/19/24 Lancets) lorazepam 0.5 mg tablet 0.5 mg PO DAILY PRN acute anxiety 10/20/23 01/19/24 #30 tabs mirtazapine 7.5 mg tablet 7.5 mg PO QHS #90 tabs 10/26/23 01/19/24 urea 40 % topical cream See Rx Instructions .Route 11/18/23 01/19/24 .COMPLEX #85 grams metamucil 1 unit PO DAILY PRN #30 tabs 11/22/23 01/19/24 losartan 50 mg tablet 50 mg PO DAILY #90 tabs 12/22/23 01/19/24 Previous Rx's Medication Instructions Recorded acetaminophen 325 mg tablet 650 mg (2 x 325 mg) PO Q4H PRN PRN 01/15/16 (Tylenol) #0 tabs zoledronic acid 5 mg/100 mL in See Rx Instructions IV .once per 06/23/21 mannitol 5 %-water intravenous year #100 mL piggybck (Reclast) nitroglycerin 0.4 mg sublingual 0.4 mg sublingual Q5 MIN PRN X3 04/15/22 tablet (Nitrostat) PRN chest pain #20 tabs mupirocin 2 % topical ointment 1 applic topical BID #15 grams 05/13/22 omeprazole 20 mg tablet,delayed 20 mg PO .every other day #45 tabs 02/24/23 release acyclovir 5 % topical ointment 15 g topical 5X/DAY #0 grams 03/29/23 amlodipine 5 mg tablet 5 mg PO HS #90 tabs 04/19/23 gabapentin 300 mg capsule 300 mg PO BID #180 caps 04/19/23 ketoconazole 2 % topical cream 1 applic topical DAILY 3 months 05/24/23 #60 grams nystatin 100,000 unit/gram topical 1 applic topical BID PRN robin 07/07/23 cream rash #30 grams carvedilol 6.25 mg tablet See Rx Instructions .Route 07/20/23 .COMPLEX #180 tabs apixaban 5 mg tablet (Eliquis) 5 mg PO BID #180 tabs 07/28/23 lamotrigine 100 mg tablet See Rx Instructions .Route 08/16/23 .COMPLEX #180 tabs citalopram 20 mg tablet See Rx Instructions .Route 08/23/23 .COMPLEX #90 tabs metformin 500 mg tablet,extended See Rx Instructions .Route 08/26/23 release 24 hr .COMPLEX #90 tabs atorvastatin 40 mg tablet See Rx Instructions .Route 09/15/23 .COMPLEX #90 tabs carvedilol 3.125 mg tablet 3.125 mg PO BID #180 tabs 09/15/23 blood sugar diagnostic (Accu-Chek #100 ea 10/04/23 Guide test strips) blood-glucose meter (Accu-Chek #1 ea 10/04/23 Guide Glucose Meter) lancets (Accu-Chek Softclix #100 ea 10/04/23 Lancets) lorazepam 0.5 mg tablet 0.5 mg PO DAILY PRN acute anxiety 10/20/23 #30 tabs mirtazapine 7.5 mg tablet 7.5 mg PO QHS #90 tabs 10/26/23 urea 40 % topical cream See Rx Instructions .Route 11/18/23 .COMPLEX #85 grams metamucil 1 unit PO DAILY PRN #30 tabs 11/22/23 losartan 50 mg tablet 50 mg PO DAILY #90 tabs 12/22/23 Allergies Allergy/AdvReac Type Severity Reaction Status Date / Time nifedipine Allergy Mild Hives Verified 01/19/24 20:38 amiodarone AdvReac Severe tremor Verified 01/19/24 20:38 oxycodone AdvReac Severe heavy Verified 01/19/24 20:38 sedation valacyclovir AdvReac Severe Other (See Verified 01/19/24 20:38 Comment) amoxicillin AdvReac Intermediate sore Verified 01/19/24 20:38 burning mouth Anesthetics - Amide Type - AdvReac Intermediate anxious Verified 01/19/24 20:38 Select A [Anesthetics - Amide Type] diazepam AdvReac Intermediate Agitation Verified 01/19/24 20:38 indomethacin AdvReac Intermediate headache, Verified 01/19/24 20:38 flush metformin AdvReac Intermediate Diarrhea Verified 01/19/24 20:38 General Stated Complaint: Fall/Non TraumaCriteria ANASTACIA: 3 Review of Systems Narrative: see HPI Exam Const General: cooperative, healthy appearing and well developed Nutritional Appearance: average body habitus HENMT Head: normal to inspection Ears: hearing grossly normal bilaterally Eyes Pupils: PERRL EOM: EOM intact bilaterally Neck Neck: normal visual inspection, full ROM and no meningeal signs Resp Effort & Inspection: normal respiratory effort and able to speak in complete sentences Auscultation: clear to auscultation bilaterally Cardio Rate: regular rate Rhythm: regular rhythm GI Inspection: normal to inspection and non-distended Palpation: soft Back/Spine/Pelvis Cervical Spine: normal cervical lordosis and cervical ROM normal Thoracic/Lumbar Spine: thoraco-lumbar ROM normal and thoracic spinal tenderness Neuro General: patient alert, patient oriented x3, tone normal, moves all extremities, no focal motor deficits and CN's II-XI intact bilaterally Cognition: normal cognition Speech: speech normal Extrem General: normal to inspection, full ROM and no pedal edema Course Vital Signs Vital signs: Vital Signs Temperature 36.7 C 01/19/24 20:35 Pulse 109 H 01/19/24 20:35 Respiratory Rate 16 01/19/24 20:35 Blood Pressure 187/110 H 01/19/24 20:35 Pulse Oximetry 97 01/19/24 20:35 Temperature 36.7 C 01/19/24 20:35 Pulse 109 H 01/19/24 20:35 Respiratory Rate 16 01/19/24 20:35 Respiratory Effort Normal 01/19/24 20:39 Blood Pressure 187/110 H 01/19/24 20:35 Blood Pressure Position Supine 01/19/24 20:35 Pulse Oximetry 97 01/19/24 20:35 Oxygen Delivery Method Room Air 01/19/24 20:35 Oxygen Flow Rate 0 01/19/24 20:35 Pain Level 0 01/19/24 20:35 Medical Decision Making Quality:SDOH Health Related Social Needs: No Data to Display PFSH All Active Problems (Updated 01/19/24 @ 23:19 by Jana Barragan) Back pain (Acute) Elevated parathyroid hormone (Acute ~2023) Chronic kidney disease, stage III (moderate) (Acute 08/17/11) Coronary artery disease (Chronic) a. inferior GA 1984 b. GA with CABG 1992 Patient is doing well with no chest pain. Continue on current medications. 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 h/o ECT treatment x1 (per Liliana very effective) b. formerly followed by Chauncey Gracia NP c. On multiple medications d. h/o psychiatric hospitalizations for reported bipolar e. h/o suicide attempts Retinal dot hemorrhage of both eyes (Acute ~10/2019) 08/15/2019 Dr Aliza Eng Osteoporosis (Chronic) See 10/2018 CT T11 compression fracture 2016 DEXA osteopenia [id number]: Boniva x2, which she tolerated, thus switching to Reclast (better outcome data) ASCVD (arteriosclerotic cardiovascular disease) (Chronic) cardiac cath Essential tremor (Chronic 04/02/08) R > L, EVAL PRICE 2008; REMI [id number]; responds to low dose propranolol Hyperlipidemia (Chronic 08/17/11) Crestor switched to Atorvastatin per ins Generalized atherosclerosis (Chronic 08/17/11) H/O CABG 1993; Cath 11/2015: all three grafts open; EF 60%; JUANPABLO 02/2015 EF 55% Essential hypertension (Chronic 08/17/11) Diabetic neuropathy (Chronic 03/07/15) Dr Robbins Chronic nonalcoholic liver disease (Chronic 08/17/11) 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 of 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 (Chronic) Apixaban for AF GERD (gastroesophageal reflux disease) (Chronic) Severe anxiety with panic (Chronic) L-T BZD Rx Medical History COVID (~06/2023) Gouty arthropathy, unspecified (08/17/11) Shingles Lumbar radiculopathy Hypokalemia Prolonged CT interval Hematoma Caregiver burden ; 02/2022 Atrial fibrillation s/p ablation 02/2016 Diarrhea [facility] GI 2020; Kefir & Psyllium husk help Trigger finger, right ring finger Trigger finger, left ring finger Trigger finger, left middle finger Fracture of rib of right side (08/26/15) Fracture of right shoulder (08/26/15) Unexplained weight loss GI work-up NEG; Mirtaz helped Chest pain Chronic pain Back; L-T Tramadol RX (which was discont 2018); h/o compression fractures Mid back pain compression fx Sleeping difficulty (07/01/15) Improved on Mirtaz Primary osteoarthritis of right knee (08/24/16) Frequent falls (04/05/17) Chronic atrial fibrillation (11/19/15) s/p Ablation 02/2016 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 declined ablation at [facility] Patient's dual-chamber pacemaker is functioning normally with ample generator life remaining. She has had no further PAF episodes noted. Her presenting rhythm is atrial pacing and underlying rhythm is sinus bradycardia. No reprogramming needed. She does not use remote monitoring. Chronic fatigue syndrome Surgical History History of hysterectomy cardioversion (07/20/14) Dr Garcia, [facility] cardiac catheterization (11/27/14) 3 vessel disease, occluded, Grafts: mammary artery and 2 venous grafts are all open. Trigger Finger release R 4th digit Replacement of total knee joint (09/14/11) CELESTE LEFT TKA Pacemaker (09/05/15) [facility] [facility] [employer] Extraction of cataract (11/11/15) L cataract Brusly R cataract-Dr Hutson Ablation for A Fib (03/10/16) Catheter ablatioin for A Flutter and catheter ablatiion for A Fib; [facility] [place] David King H/O surgical procedure a. left cataract surgery b. Duane fundoplication c. carpal tunnel syndrome d. bilateral tubal ligation e. hysterectomy f. arthroscopy left knee 09/2011 g. s/p breast reduction Family History Mother , perf ulcer at age 78. Hip fracture mother from complications of hip fracture Father , stroke at age 80. No problems noted. Sister No problems noted. Social History Smoking/Tobacco Use Status: Never Second Hand Exposure: No Smoking risk assessment performed?: Yes Alcohol Intake: never Drug use: Never Substance use type: does not use Adopted: No (raised by Aunt and Uncle) Caregiver/Support person: Yes (youngest daughter: Jacquelyn Chavira is healthcare agent [phone]) Foster care: No Household members: spouse Housing: house Number of Children: 4 Current gender identity: female What is your relationship status?: Panel score (0-1 are the most socially isolated patients): 1 What type of physical activity do you participate in: additional Details: gardening, playing with dog Shasta/Uatsdin: Denominational Seatbelt use: always Drive intox or ride w/intox delivery driver: No Water heater temp set <120 deg: Yes Working smoke detector in home: Yes Fire extinguisher in home: Yes Carbon monox detector in home: Yes Firearms in home: Yes Do you feel safe at home: Yes Do you feel safe in your relationship?: Yes History History 5 Para Hx # Term Pregnancies 4 Multiple births Hx # Pregnancies Ectopic pregnancies AB induced Hx Number of Living Children AB spontaneous
[2024-01-19 21:15] LABS: Abs Immature Grans 0.01 10^3/uL (0.0-0.06); Absolute Basophil Count 0.03 10^3/uL (0.0-0.2); Absolute Eosinophil Count 0.17 10^3/uL (0.0-0.7); Absolute Lymphocyte Count 2.18 10^3/uL (1.2-3.4); Absolute Monocyte Count 0.44 10^3/uL (0.1-0.8); Absolute Neutrophil Count 3.08 10^3/uL (1.2-6.7); Basophils % 0.5 %; Eosinophils % 2.9 %; HCT 38.1 % (36.0-46.0); HGB 12.7 g/dL (11.2-15.7); Immature Grans % 0.2 %; Lymphocytes % 36.9 %; MCH 33.5 pg (27.0-33.0); MCHC 33.3 % (32.0-36.0); MCV 101 fL (80-95); MPV 9.3 fL (8.0-11.0); Monocytes % 7.4 %; Neutrophils % 52.1 %; Platelet Count 130 10^3/uL (130-400); RBC 3.79 10^6/uL (3.93-5.22); RDW 12.3 % (11.7-14.6); RDW-SD 45.5 fL; WBC 5.91 10^3/uL (4.4-10.8)
[2024-01-19 21:29] LABS: ALT 31 U/L (14-59); AST 25 U/L (15-37); Alkaline Phosphatase 43 U/L (46-116); BUN 18 mg/dL (7-18); Bilirubin, Total 0.43 mg/dL (0.2-1.0); CREATININE 1.1 mg/dL (0.55-1.02); Calcium 10.2 mg/dL (8.5-10.1); Chloride 104 mmol/L (98-107); Estimated GFR 50.48 (mL/min/1.73m2); Glucose 148 mg/dL (74-106); Potassium 3.7 mmol/L (3.5-5.1); Sodium 141 mmol/L (136-145); Total Protein 7.6 g/dL (6.4-8.2)
[2024-01-19 21:32] LABS: Troponin I < 50 ng/L (< or =60)
--- NOTE | 2024-01-19 22:25 | DI.VRAD_ITS ---
PROCEDURE INFORMATION: Exam: CT Cervical Spine Without Contrast Exam date and time: 01/19/2024 21:39 Age: 83 years old Clinical indication: Other: Back pain S/P fall TECHNIQUE: Imaging protocol: Computed tomography of the cervical spine without contrast. COMPARISON: CT HEAD CERVICAL SPINE WO 10/29/2021 18:20 FINDINGS: Tubes, catheters and devices: Cardiac pacemaker leads are partially seen. Bones: No acute fracture or subluxation. Demineralization and [id number] degenerative changes without harris central canal stenosis on CT. Lungs: The lungs appear hyperinflated. Soft tissues: No suspicious lesions. IMPRESSION: No cervical spine fracture. Dictated and Authenticated by: Chioma Sharpe MD. Ordering:MARIA Bates MD
--- NOTE | 2024-01-19 22:27 | DI.VRAD_ITS ---
PROCEDURE INFORMATION: Exam: XR Chest Exam date and time: 01/19/2024 21:51 Age: 83 years old Clinical indication: Other: Dizziness TECHNIQUE: Imaging protocol: Radiologic exam of the chest. Views: 2 views. COMPARISON: CR XR CHEST 2V PA LATERAL 03/28/2023 20:18 FINDINGS: Tubes, catheters and devices: Dual lead pacemaker in the expected position. Lungs: The lungs appear hyperinflated. No airspace consolidation. Pleural spaces: No pleural effusion. No pneumothorax. Heart/Mediastinum: CABG. Mild cardiomegaly without significant vascular congestion for technique. Bones/joints: Median sternotomy wires. No displaced fracture. IMPRESSION: 1. Mild cardiomegaly without significant vascular congestion for technique. 2. Chronic findings as described. Dictated and Authenticated by: Chioma Sharpe MD. Ordering:MARIA Bates MD
--- NOTE | 2024-01-19 22:34 | DI.VRAD_ITS ---
PROCEDURE INFORMATION: Exam: CT Thoracic Spine Without Contrast Exam date and time: 01/19/2024 21:39 Age: 83 years old Clinical indication: Other: Fall, thoracic back pain TECHNIQUE: Imaging protocol: Computed tomography of the thoracic spine without contrast. COMPARISON: CT thoracic spine w 10/14/2018 15:15 FINDINGS: Tubes, catheters and devices: Cardiac pacemaker leads are partially seen. Bones/joints: The bones are demineralized. Minimal chronic loss of height superior T11 endplate. Disc space narrowing without significant central canal stenosis on CT. No acute fracture or subluxation. Soft tissues: No suspicious lesions. Heart: Cardiomegaly is partially seen. IMPRESSION: No acute bony pathology. PROCEDURE INFORMATION: Exam: CT Lumbar Spine Without Contrast Exam date and time: 01/19/2024 21:39 Age: 83 years old Clinical indication: Other: Fall, thoracic back pain TECHNIQUE: Imaging protocol: Computed tomography of the lumbar spine without contrast. COMPARISON: CR XR LUMBAR SPINE COMPLETE 03/04/2023 15:41 FINDINGS: Bones/joints: No acute fracture or subluxation. Probable minor chronic deformity left L2 transverse process. Benign Schmorl's node superior L3 endplate. Trace chronic anterior loss of height at L1. Degenerative grade 1 anterolisthesis L5 over S1. No harris central canal stenosis on CT. Kidneys and ureters: Chronic appearing moderate atrophy upper moiety or pole the right kidney. The line mild multifocal aortic dilation. Intraperitoneal space: Trace free fluid in the pelvis. Urinary bladder: Visualized urinary bladder is distended. Reproductive: Probable hysterectomy partially assessed. Soft tissues: No suspicious lesions. IMPRESSION: No acute bony pathology. Dictated and Authenticated by: Chioma Sharpe MD. Ordering:MARIA Bates MD
[2024-01-19] MEDS: Lidocaine 5% Patch 1 PATCH TP (23:00)
[2024-01-19 23:33] LABS: Troponin I < 50 ng/L (< or =60)
--- NOTE | 2024-01-20 00:37 | NUR.NOTE ---
Pt placed on care management referral list to see PCP for Hypertension Management to be seen within 1 week.
== END 2024-01-19 23:57 | disposition home or self-care (01) ==
PROVIDERS: Emergency Provider Nurse Practitioner Family; PCP Nurse Practitioner Adult Health
DX: M54.6 Pain in thoracic spine (principal); I48.91 Unspecified atrial fibrillation; I25.10 Atherosclerotic heart disease of native coronary artery without angina pectoris; I25.2 Old myocardial infarction; I12.9 Hypertensive chronic kidney disease with stage 1 through stage 4 chronic kidney disease, or unspecified chronic kidney disease; E11.22 Type 2 diabetes mellitus with diabetic chronic kidney disease; N18.30 Chronic kidney disease, stage 3 unspecified; E11.40 Type 2 diabetes mellitus with diabetic neuropathy, unspecified; Z95.1 Presence of aortocoronary bypass graft; Z95.0 Presence of cardiac pacemaker; E78.5 Hyperlipidemia, unspecified; Z79.84 Long term (current) use of oral hypoglycemic drugs; Z79.01 Long term (current) use of anticoagulants; W18.39XA Other fall on same level, initial encounter; Y93.K1 Activity, walking an animal; Y92.018 Other place in single-family (private) house as the place of occurrence of the external cause
CPT/HCPCS: 36415; 80053; 82962; 93005; 99285; 71046; 72125; 72128; 72131; 84484; 85025; 93010; 99284

== ENCOUNTER 2024-03-01 15:48 | Observation (INO) | payer MEDICARE, BC, SELFPAY ==
[2024-03-01] VITALS (48 sets, daily range): BP systolic 162–213; BP diastolic 105–146; PULSE 112–139; RESP 11–30; TEMP 36.1–37.4; O2SAT 86–99
--- NOTE | 2024-03-01 15:30 | RT.EKG_ITS ---
APPROVED REPORT Exam: Resting ECG Reason for Exam: AMS Patient Location: E HR:119 bpm ECG Measurements Heart Rate 119 AXIS DC [id number] P [id number] QRSd 110 QRS 80 QT 348 T 251 QTc 493 Conclusion Atrial flutter Diffuse repolarization abnormalities/Twave inversions No STEMI
--- NOTE | 2024-03-01 15:45 | DI.CT_ITS ---
Exam(s) CT BRAIN NECK CTA EXAM: CT BRAIN NECK CTA CLINICAL HISTORY: AMS, R. sided neglect. TECHNIQUE: Imaging Protocol: Axial CT angiography was performed with multi-slice acquisition and mu lti-planar and/or 3D reconstructions. CONTRAST MATERIAL: Intravenous: Omnipaque 350 contrast volume:100 mL COMPARISON: CT CT ORBITS WO from 07/12/[address] HEAD WO from 03/28/[address] CERVICAL SPINE WO from 01/19/2024 FINDINGS: CT Head W/O and W: Ventricles and Extra axial spaces: Normal in size and morphology for the patient's age. Hemorrhage: None. Cerebral parenchyma: No acute territorial infarct. There are areas of decreased attenuation in the w yocasta matter consistent with chronic microvascular ischemic disease. 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 Midline shift: None. Brainstem/Cerebellum: Normal. Calvarium: Normal. Visualized Paranasal sinuses/Mastoids: Clear. Soft Tissues: Unremarkable. Enhancement: Unremarkable. CTA Neck W: Common Carotid: Right: No dissection, occlusion or significant stenosis. Left: No dissection, occlusion or significant stenosis. External Carotid: Right: No occlusion or significant stenosis. Left: No occlusion or significant stenosis. Internal Carotid: Right: Atherosclerotic calcification is seen in the proximal right internal carotid artery. There i s resultant 80-90 percent stenosis present. No occlusion or dissection. Left: Atherosclerotic calcification is seen in the proximal left internal carotid artery but no sign ificant stenosis is present. Vertebral Artery: Right: No occlusion or significant stenosis. Left: No occlusion or significant stenosis. Lung Apices: No acute infiltrates are seen. Bones: Within normal limits for the patient's age. Sternal wires are in place. Soft Tissues: Normal. Thyroid gland: Unremarkable. CTA Brain W: Internal Carotid Arteries: Atherosclerotic calcification of the cavernous internal carotid arteries i s noted, right greater than left. There is 50 percent narrowing of the right cavernous internal hooper tid artery. No significant left internal carotid artery stenosis is seen.. Anterior Cerebral Arteries: There is an absent right A1 segment. The right anterior cerebral artery receives its flow via the anterior communicating artery. Right: No aneurysm, occlusion or significant stenosis. Left: No aneurysm, occlusion or significant stenosis. Middle Cerebral Arteries: Right: No aneurysm, occlusion or significant stenosis. Left: No aneurysm, occlusion or significant stenosis. Posterior Cerebral Arteries: The left posterior cerebral artery arises from the posterior communicati ng artery which is a normal variant. Right: No aneurysm, occlusion or significant stenosis. Left: No aneurysm, occlusion or significant stenosis. Vertebral Arteries: Right: No aneurysm, occlusion or significant stenosis. Atherosclerotic calcification is seen in the distal right vertebral artery without significant stenosis. Left: No aneurysm, occlusion or significant stenosis. Basilar Artery: No aneurysm, occlusion or significant stenosis. IMPRESSION: 1. No large vessel occlusion or significant stenosis on the CT angiography of the head. 2. No acute intracranial process. 3. Eighty 90 percent stenosis at the proximal right internal carotid artery secondary to atherosclero tic calcification. 4. Findings were discussed with Dr. Loza at 6:49 p.m. on 03/01/2024. RADIATION DOSE DELIVERED: Total DLP DATA REPOSITORY: All CT scans at this facility are submitted to the National Radiology Data Registry (NRDR) Dose Index Registry (DIR) with the [employer] ([employer]). RADIATION OPTIMIZATION: All CT scans at this facility use at least one of these dose optimization te chniques: automated exposure control; mA and/or kV adjustment per patient size (includes targeted exa ms where dose is matched to clinical indication); or iterative reconstruction.
[2024-03-01 16:18] LABS: Abs Immature Grans 0.04 10^3/uL (0.0-0.06); Absolute Lymphocyte Count 1.04 10^3/uL (1.2-3.4); Basophils % 0.2 %; HCT 42.8 % (36.0-46.0); HGB 14.4 g/dL (11.2-15.7); Immature Grans % 0.3 %; Lymphocytes % 8.6 %; MCHC 33.6 % (32.0-36.0); MCV 98 fL (80-95); Monocytes % 6.9 %; RBC 4.37 10^6/uL (3.93-5.22); RDW 12.1 % (11.7-14.6); RDW-SD 43.8 fL; WBC 12.09 10^3/uL (4.4-10.8)
[2024-03-01 16:36] LABS: Absolute Basophil Count 0.02 10^3/uL (0.0-0.2); Absolute Monocyte Count 0.83 10^3/uL (0.1-0.8); Absolute Neutrophil Count 10.16 10^3/uL (1.2-6.7); Platelet Count 100 10^3/uL (130-400)
[2024-03-01] MEDS: Lactated Ringers 1,000 ML 1000 ML IV (16:36)
[2024-03-01 16:39] LABS: INR 1.1 (0.9-1.1); Prothrombin Time 11.4 sec (9.1-11.1)
[2024-03-01 16:41] LABS: Bilirubin Negative (Negative); Blood Moderate (Negative); Clarity Clear (Clear); Glucose Negative (Negative); Ketones 15 mg/dL (Negative); Leukocyte Esterase Negative (Negative); Nitrite Negative (Negative); Specific Gravity 1.025 (1.005-1.025); Urobilinogen 0.2 mg/dL (Up to 0.2)
[2024-03-01 16:44] LABS: Salicylate < 2.8 mg/dL (<2.8)
[2024-03-01 16:45] LABS: Acetaminophen < 2 ug/mL (10-30)
[2024-03-01 16:54] LABS: ALT 19 U/L (14-59); AST 23 U/L (15-37); Albumin 4.2 g/dL (3.4-5.0); Alkaline Phosphatase 42 U/L (46-116); BUN 13 mg/dL (7-18); Bilirubin, Total 1.14 mg/dL (0.2-1.0); CREATININE 0.8 mg/dL (0.55-1.02); Calcium 10.3 mg/dL (8.5-10.1); Chloride 100 mmol/L (98-107); Creatine Kinase 129 U/L (26-192); Estimated GFR 73.98 (mL/min/1.73m2); Glucose 151 mg/dL (74-106); Magnesium 1.2 mg/dL (1.8-2.4); Potassium 3.4 mmol/L (3.5-5.1); Sodium 137 mmol/L (136-145); Total Protein 7.8 g/dL (6.4-8.2); Troponin I < 50 ng/L (< or =60)
[2024-03-01 17:00] LABS: Bacteria Negative HPF (Negative); C & S Indicated? No; Casts Negative LPF (Negative); Crystals Negative HPF (Negative); Epithelial Cells Rare HPF (Negative); Mucus Trace (Negative); RBC 0-2 HPF (0-2); WBC 0-2 HPF (0-5)
[2024-03-01 17:01] LABS: ETHANOL BLOOD < 3.0 mg/dL (<10)
[2024-03-01 17:13] LABS: *AMPHETAMINES SCREEN URINE Negative (Negative); *BARBITURATES SCREEN URINE Negative (Negative); *BENZODIAZEPINES SCREEN URINE Negative (Negative); Cannabinoids THC Negative (Negative); Cocaine Screen,Urine Negative (Negative); METHADONE URINE SCREEN Negative (Negative); OPIATES URINE SCREEN Negative (Negative)
[2024-03-01 17:14] LABS: Tricyclic Antidepressants Negative (Negative)
[2024-03-01] MEDS: MAGNESIUM SULFATE 2 GM/50 ML BAG IVINF (17:29)
[2024-03-01] MEDS: POTASSIUM CHLORIDE 20 MEQ/100 ML BAG 50 MEQ IVINF (17:29)
[2024-03-01] MEDS: Normal Saline - Diluent 50 ML VIAL IJ (17:43)
[2024-03-01] MEDS: Omnipaque 350 MG/ML 100 ML BTL IJ (17:46)
--- NOTE | 2024-03-01 17:51 | ED.GENADUL_ITS ---
Discharge Plan Discharge Details Chief Complaint: AMS/LOC Admit Date/Time: 03/01/24 20:50 Admit Provider: Cristofer Bradford Attending Provider: Cristofer Bradford Primary Care Provider: Linn Paulino ED Provider: Norma Mcintyre General Mode of arrival: EMS . Date/Time Provider Initiated Documentation: 03/01/24 15:54 . Limitations to Documentation: altered mental status . Information obtained by: patient, family, EMS and old records reviewed . HPI Narrative: MDM: In brief, this is an 83-year-old female patient with a past medical history significant for atrial fibrillation on anticoagulation, hypertension, CKD, who was found down in her home with an unknown downtime. My differential includes but is not limited to intracranial hemorrhage, stroke, seizure, metabolic and electrolyte derangement. I certainly considered infectious abnormalities including sepsis, UTI, pneumonia, and considered toxic exposure in the setting o f the recent social stressors/anniversary of her partner's . Rhabdomyolysis was considered, as well as kidney injury and liver disease. I considered ACS, arrhythmia, pneumonia. Unfortunately with the last known well and the anticoagulated status if this patient was found to have a stroke she would not meet criteria for tPA administration. For this reason a stroke alert was not called, but we did elect to proceed rapidly to CT imaging of the brain and neck to include CTA and Noncon head. Will also obtain laboratory studies to include CBC, CMP, troponin, CK, tox screen, urinalysis, and will obtain an EKG. I obtained a PT/INR, and provided the patient with a liter of lactated Ringer's. ED Course: I reviewed the patient's laboratory studies, which show no severe leukocytosis, anemia, or thrombocytopenia. The chemistry panel demonstrates a mild hypokalemia, which was repleted intravenously. She has a mild elevation in her bilirubin and has a low magnesium of 1.2 which was also repleted. No kidney dysfunction, troponin negative, and the CK was low. The urinalysis is positive for blood, but no evidence of infectious findings. Serum tox screen and urine tox screen were negative. I independently interpreted her CT imaging and discussed the results with the radiologist. The patient has no evidence of intracranial hemorrhage, no large vessel occlusion or areas of infarct apparent, but she does have 80% stenosis of her right internal carotid. On reassessment the patient's mental status has improved significantly, and her family arrived at bedside and was able to provide us with some collateral. The patient had endorsed to the family member that she intentionally overdosed on 5 of her 0.5 mg lorazepam, 2 of her 7.5 mg mirtazapine, and an unknown quantity of an unknown cardiac pill (patient takes amlodipine, carvedilol, and losartan). Given the patient's intentional overdose, I did contact poison control to discuss the patient's case, and they have no further recommendations for management and feel that she is unlikely to experience any ongoing adverse effects from her potential ingestions. The patient reports that she just wanted to stop feeling but denies active suicidality. Given her acute medical complexity I feel like she would be inappropriate for primary psychiatric evaluation, and so we reached out to our hospitalist team who is graciously accepted her for admission for ongoing workup of her hypertension and A-fib with RVR as well as her overdose and psychiatric needs. She remained hemodynamically appropriate while under my care and she was transferred from this department without incident. Norma Mcintyre MD HPI: This is an 83-year-old female patient with a past medical history significant for atrial fibrillation/flutter on anticoagulation, history of hypertension, and pacemaker placement, presenting for evaluation of altered mental status. Per EMS and family, the patient was last seen 2 days ago, family does not live with her but called to check in periodically. This morning the patient did not answer her phone, and so the family came to her house and found her lying on the floor. She appears to have been lying on her left side, as the left right face is slightly more red and swollen than her right, and EMS noted her to be cold, incontinent of urine, and tachycardic/hypertensive. She was confused and transported to our facility for evaluation. EMS was told by family that yesterday was the anniversary of her partner's , and was a particularly challenging day for the patient. It is unknown if she took any medications to try to harm herself. Patient has no history of stroke, is typically able to care for herself independently, and has no known neurodeficits. Exam: Gen: opens eyes to loud verbal stimuli, follows simple commands HEENT: Non-icteric sclera, pupils equal and reactive at 3 mm, does not track appropriately, and seems to have difficulty tracking towards the right. Slight swelling and redness of the left side of her face Neck: Supple Lungs: No apparent respiratory distress, tachypneic, clear lung sounds CV: Appears well perfused, heart with tachycardic rate and irregularly irregular rhythm, strong distal pulses Abdomen: Non-distended, soft, nontender MSK: Right arm held in flexion against her body, no apparent injuries or abnormalities to her extremities. Skin: Visualized skin without rashes, cyanosis. Neuro: Difficulty following commands, but does smile when asked, moves her feet bilaterally to command without asymmetry. Difficulty understanding her speech. Related Data Home Medications ?Medication ?Instructions ?Recorded ?Confirmed acetaminophen 325 mg tablet 650 mg (2 x 325 mg) PO Q4H PRN PRN 01/15/16 03/01/24 (Tylenol) #0 tabs zoledronic acid 5 mg/100 mL in See Rx Instructions IV .once per 06/23/21 03/01/24 mannitol 5 %-water intravenous year #100 mL piggybck (Reclast) nitroglycerin 0.4 mg sublingual 0.4 mg sublingual Q5 MIN PRN X3 04/15/22 03/01/24 tablet (Nitrostat) PRN chest pain #20 tabs mupirocin 2 % topical ointment 1 applic topical BID #15 grams 05/13/22 03/01/24 omeprazole 20 mg tablet,delayed 20 mg PO .every other day #45 tabs 02/24/23 03/01/24 release acyclovir 5 % topical ointment 15 g topical 5X/DAY #0 grams 03/29/23 03/01/24 gabapentin 300 mg capsule 300 mg PO BID #180 caps 04/19/23 03/01/24 ketoconazole 2 % topical cream 1 applic topical DAILY 3 months 05/24/23 03/01/24 #60 grams nystatin 100,000 unit/gram topical 1 applic topical BID PRN robin 07/07/23 03/01/24 cream rash #30 grams carvedilol 6.25 mg tablet See Rx Instructions .Route 07/20/23 03/01/24 .COMPLEX #180 tabs apixaban 5 mg tablet (Eliquis) 5 mg PO BID #180 tabs 07/28/23 03/01/24 lamotrigine 100 mg tablet See Rx Instructions .Route 08/16/23 03/01/24 .COMPLEX #180 tabs citalopram 20 mg tablet See Rx Instructions .Route 08/23/23 03/01/24 .COMPLEX #90 tabs metformin 500 mg tablet,extended See Rx Instructions .Route 08/26/23 03/01/24 release 24 hr .COMPLEX #90 tabs atorvastatin 40 mg tablet See Rx Instructions .Route 09/15/23 03/01/24 .COMPLEX #90 tabs carvedilol 3.125 mg tablet 3.125 mg PO BID #180 tabs 09/15/23 03/01/24 blood sugar diagnostic (Accu-Chek #100 ea 10/04/23 03/01/24 Guide test strips) blood-glucose meter (Accu-Chek #1 ea 10/04/23 03/01/24 Guide Glucose Meter) lancets (Accu-Chek Softclix #100 ea 10/04/23 03/01/24 Lancets) lorazepam 0.5 mg tablet 0.5 mg PO DAILY PRN acute anxiety 10/20/23 03/01/24 #30 tabs mirtazapine 7.5 mg tablet 7.5 mg PO QHS #90 tabs 10/26/23 03/01/24 urea 40 % topical cream See Rx Instructions .Route 11/18/23 03/01/24 .COMPLEX #85 grams metamucil 1 unit PO DAILY PRN #30 tabs 11/22/23 03/01/24 losartan 50 mg tablet 50 mg PO DAILY #90 tabs 12/22/23 03/01/24 cyclobenzaprine 5 mg tablet See Rx Instructions .Route 02/10/24 03/01/24 .COMPLEX #20 tabs amlodipine 5 mg tablet 5 mg PO DAILY 03/01/24 03/01/24 lidocaine 5 % topical patch 1 patch transdermal DAILY PRN 03/01/24 03/01/24 Previous Rx's ?Medication ?Instructions ?Recorded acetaminophen 325 mg tablet 650 mg (2 x 325 mg) PO Q4H PRN PRN 01/15/16 (Tylenol) #0 tabs zoledronic acid 5 mg/100 mL in See Rx Instructions IV .once per 06/23/21 mannitol 5 %-water intravenous year #100 mL piggybck (Reclast) nitroglycerin 0.4 mg sublingual 0.4 mg sublingual Q5 MIN PRN X3 04/15/22 tablet (Nitrostat) PRN chest pain #20 tabs mupirocin 2 % topical ointment 1 applic topical BID #15 grams 05/13/22 omeprazole 20 mg tablet,delayed 20 mg PO .every other day #45 tabs 02/24/23 release acyclovir 5 % topical ointment 15 g topical 5X/DAY #0 grams 03/29/23 gabapentin 300 mg capsule 300 mg PO BID #180 caps 04/19/23 ketoconazole 2 % topical cream 1 applic topical DAILY 3 months 05/24/23 #60 grams nystatin 100,000 unit/gram topical 1 applic topical BID PRN robin 07/07/23 cream rash #30 grams carvedilol 6.25 mg tablet See Rx Instructions .Route 07/20/23 .COMPLEX #180 tabs apixaban 5 mg tablet (Eliquis) 5 mg PO BID #180 tabs 07/28/23 lamotrigine 100 mg tablet See Rx Instructions .Route 08/16/23 .COMPLEX #180 tabs citalopram 20 mg tablet See Rx Instructions .Route 08/23/23 .COMPLEX #90 tabs metformin 500 mg tablet,extended See Rx Instructions .Route 08/26/23 release 24 hr .COMPLEX #90 tabs atorvastatin 40 mg tablet See Rx Instructions .Route 09/15/23 .COMPLEX #90 tabs carvedilol 3.125 mg tablet 3.125 mg PO BID #180 tabs 09/15/23 blood sugar diagnostic (Accu-Chek #100 ea 10/04/23 Guide test strips) blood-glucose meter (Accu-Chek #1 ea 10/04/23 Guide Glucose Meter) lancets (Accu-Chek Softclix #100 ea 10/04/23 Lancets) lorazepam 0.5 mg tablet 0.5 mg PO DAILY PRN acute anxiety 10/20/23 #30 tabs mirtazapine 7.5 mg tablet 7.5 mg PO QHS #90 tabs 10/26/23 urea 40 % topical cream See Rx Instructions .Route 11/18/23 .COMPLEX #85 grams metamucil 1 unit PO DAILY PRN #30 tabs 11/22/23 losartan 50 mg tablet 50 mg PO DAILY #90 tabs 12/22/23 cyclobenzaprine 5 mg tablet See Rx Instructions .Route 02/10/24 .COMPLEX #20 tabs Allergies Allergy/AdvReac Type Severity Reaction Status Date / Time nifedipine Allergy Mild Hives Verified 01/31/24 11:37 amiodarone AdvReac Severe tremor Verified 01/31/24 11:37 oxycodone AdvReac Severe heavy Verified 01/31/24 11:37 sedation valacyclovir AdvReac Severe Other (See Verified 01/31/24 11:37 Comment) amoxicillin AdvReac Intermediate sore Verified 01/31/24 11:37 burning mouth Anesthetics - Amide Type - AdvReac Intermediate anxious Verified 01/31/24 11:37 Select A (Anesthetics - Amide Type) diazepam AdvReac Intermediate Agitation Verified 01/31/24 11:37 indomethacin AdvReac Intermediate headache, Verified 01/31/24 11:37 flush metformin AdvReac Intermediate Diarrhea Verified 01/31/24 11:37 General Stated Complaint: AMS/LOC ANASTACIA: 2 Course Vital Signs Vital signs: Vital Signs Temperature 36.1 C L 03/01/24 15:49 Pulse 125 H 03/01/24 15:49 Respiratory Rate 18 03/01/24 15:49 Blood Pressure 212/141 H 03/01/24 15:49 Pulse Oximetry 98 03/01/24 15:49 Temperature 36.1 C L 03/01/24 15:49 Temperature Source Temporal Artery Scan 03/01/24 15:49 Pulse 125 H 03/01/24 15:49 Respiratory Rate 18 03/01/24 15:49 Blood Pressure 212/141 H 03/01/24 15:49 Pulse Oximetry 98 03/01/24 15:49 Lab/Test Results Lab/Test Results: Laboratory Tests Range/Units 03/01/24 03/01/24 03/01/24 15:45 16:05 16:20 WBC (4.4-10.8) 10^3/uL 12.09 H RBC (3.93-5.22) 10^6/uL 4.37 Hgb (11.2-15.7) g/dL 14.4 Hct (36.0-46.0) % 42.8 MCV (80-95) fL 98 H MCH (27.0-33.0) pg 33.0 MCHC (32.0-36.0) % 33.6 RDW (11.7-14.6) % 12.1 Plt Count (130-400) 10^3/uL 100 L MPV (8.0-11.0) fL Immature Gran % % 0.3 Neutrophils % % 84.0 Lymphocytes % % 8.6 Monocytes % % 6.9 Eosinophils % % 0.0 Basophils % % 0.2 Nucleated RBC % (0.0-0.3) % 0.0 Absolute Neutrophils (1.2-6.7) 10^3/uL 10.16 H Absolute Lymphocytes (1.2-3.4) 10^3/uL 1.04 L Absolute Monocytes (0.1-0.8) 10^3/uL 0.83 H Absolute Eosinophils (0.0-0.7) 10^3/uL 0.00 Absolute Basophils (0.0-0.2) 10^3/uL 0.02 PT (9.1-11.1) sec 11.4 H INR (0.9-1.1) 1.1 Sodium Cancelled Potassium Cancelled Chloride Cancelled Carbon Dioxide Cancelled Anion Gap Cancelled BUN Cancelled Creatinine Cancelled Est GFR (CKD-EPI 2020) Cancelled Glucose Cancelled Calcium Cancelled Magnesium Cancelled Total Bilirubin Cancelled AST Cancelled ALT Cancelled Alkaline Phosphatase Cancelled Creatine Kinase Cancelled Troponin I Cancelled Total Protein Cancelled Albumin Cancelled TSH Cancelled Urine Color (Yellow) Yellow Urine Clarity (Clear) Clear Urine pH (5-8) 7.0 Ur Specific [place] (1.005-1.025) 1.025 Urine Protein (Neg-Trace) mg/dL >=300 H Urine Ketones (Negative) mg/dL 15 H Urine Blood (Negative) Moderate H Urine Nitrite (Negative) Negative Urine Bilirubin (Negative) Negative Urine Urobilinogen (Up to 0.2) mg/dL 0.2 Ur Leukocyte Esterase (Negative) Negative Urine RBC (0-2) HPF 0-2 Urine WBC (0-5) HPF 0-2 Ur Epithelial Cells (Negative) HPF Rare Urine Crystals (Negative) HPF Negative Urine Bacteria (Negative) HPF Negative Urine Casts (Negative) LPF Negative Urine Mucus (Negative) Trace Ur Culture Indicated? No Urine Glucose (Negative) mg/dL Negative Salicylates (<2.8) mg/dL < 2.8 Urine Opiates Screen (Negative) Negative Urine Methadone Screen (Negative) Negative Acetaminophen (10-30) ug/mL < 2 Ur Barbiturates Screen (Negative) Negative Ur Tricyclics Screen (Negative) Negative Ur Amphetamines Screen (Negative) Negative U Benzodiazepines Scrn (Negative) Negative Urine Cocaine Screen (Negative) Negative Ur THC Screen (Negative) Negative Ethyl Alcohol Cancelled Range/Units 03/01/24 16:32 WBC (4.4-10.8) 10^3/uL RBC (3.93-5.22) 10^6/uL Hgb (11.2-15.7) g/dL Hct (36.0-46.0) % MCV (80-95) fL MCH (27.0-33.0) pg MCHC (32.0-36.0) % RDW (11.7-14.6) % Plt Count (130-400) 10^3/uL MPV (8.0-11.0) fL Immature Gran % % Neutrophils % % Lymphocytes % % Monocytes % % Eosinophils % % Basophils % % Nucleated RBC % (0.0-0.3) % Absolute Neutrophils (1.2-6.7) 10^3/uL Absolute Lymphocytes (1.2-3.4) 10^3/uL Absolute Monocytes (0.1-0.8) 10^3/uL Absolute Eosinophils (0.0-0.7) 10^3/uL Absolute Basophils (0.0-0.2) 10^3/uL PT (9.1-11.1) sec INR (0.9-1.1) Sodium 137 Potassium 3.4 L Chloride 100 Carbon Dioxide 25.0 Anion Gap 12.0 H BUN 13 Creatinine 0.8 Est GFR (CKD-EPI 2020) 73.98 Glucose 151 H Calcium 10.3 H Magnesium 1.2 L Total Bilirubin 1.14 H AST 23 ALT 19 Alkaline Phosphatase 42 L Creatine Kinase 129 Troponin I < 50 Total Protein 7.8 Albumin 4.2 TSH Urine Color (Yellow) Urine Clarity (Clear) Urine pH (5-8) Ur Specific [place] (1.005-1.025) Urine Protein (Neg-Trace) mg/dL Urine Ketones (Negative) mg/dL Urine Blood (Negative) Urine Nitrite (Negative) Urine Bilirubin (Negative) Urine Urobilinogen (Up to 0.2) mg/dL Ur Leukocyte Esterase (Negative) Urine RBC (0-2) HPF Urine WBC (0-5) HPF Ur Epithelial Cells (Negative) HPF Urine Crystals (Negative) HPF Urine Bacteria (Negative) HPF Urine Casts (Negative) LPF Urine Mucus (Negative) Ur Culture Indicated? Urine Glucose (Negative) mg/dL Salicylates (<2.8) mg/dL Urine Opiates Screen (Negative) Urine Methadone Screen (Negative) Acetaminophen (10-30) ug/mL Ur Barbiturates Screen (Negative) Ur Tricyclics Screen (Negative) Ur Amphetamines Screen (Negative) U Benzodiazepines Scrn (Negative) Urine Cocaine Screen (Negative) Ur THC Screen (Negative) Ethyl Alcohol < 3.0 Medical Decision Making Quality:SDOH Health Related Social Needs: Health related social needs details lives independentl y confusion noted by daughter Critical Care Time Critical Care Time Critical Care Time: Yes Total Critical Care Time: 35 Attestation: Upon my evaluation, this patient had a high probability of imminent or life- threatening deterioration due to drug overdose, which required my direct attention, intervention, and personal management. I have personally provided 35 minutes of critical care time exclusive of time spent on separately billable procedures. Time includes review of laboratory data, radiology results, discussion with consultants, and monitoring for potential decompensation. Interventions were performed as documented above. Norma Mcintyre MD [facility] All Active Problems (Updated 03/01/24 @ 20:43 by Cristofer Bradford MD) Drug overdose (Acute) Elevated parathyroid hormone (Acute ~2023) Chronic kidney disease, stage III (moderate) (Acute 08/17/11) Coronary artery disease (Chronic) a. inferior MT 1984 b. MT with CABG 1992 Patient is doing well with no chest pain. Continue on current medications. DM type 2, controlled, with complication (Acute) complications: neuropathy, cardiovascular disease Corns and callosities (Acute) Pain in foot (Acute) Nail dystrophy (Acute) Onychomycosis (Acute) Pain in joint, foot, left (Acute) Chronic toe pain, left foot (Acute) Hypercalcemia (Acute ~05/2023) B12 deficiency (Acute) Mitral regurgitation (Chronic ~2021) ECHO 09/2021 [facility] prescription benzodiazepine use (Chronic) Atherosclerosis of right carotid artery (Chronic ~2021) Medically managing--not a surgical candidate Subjective memory complaints (Acute ~06/2021) MoCA 25/30; executive difficulty Presence of permanent cardiac pacemaker (Acute ~2015) Dual lead [employer] pacemaker 09/05/2015; Her presenting rhythm is atrial pacing and underlying rhythm is sinus Generalized anxiety disorder (Acute) Abnormal echocardiogram (Acute ~05/2018) 05/28/2018 ([facility] [place]): 1+/4+ mitral regurg; EF 56% Depression (Chronic) a. h/o ECT treatment x1 (per Liliana very effective) b. formerly followed by Chauncey Gracia NP c. On multiple medications d. h/o psychiatric hospitalizations for reported bipolar e. h/o suicide attempts Retinal dot hemorrhage of both eyes (Acute ~10/2019) 08/15/2019 Dr Aliza Egn Osteoporosis (Chronic) See 10/2018 CT T11 compression fracture 2016 DEXA osteopenia [id number]: Boniva x2, which she tolerated, thus switching to Reclast (better outcome data) ASCVD (arteriosclerotic cardiovascular disease) (Chronic) cardiac cath Essential tremor (Chronic 04/02/08) R > L, EVAL PRICE 2008; MOWCHUN [id number]; responds to low dose propranolol Hyperlipidemia (Chronic 08/17/11) Crestor switched to Atorvastatin per ins Generalized atherosclerosis (Chronic 08/17/11) H/O CABG 1993; Cath 11/2015: all three grafts open; EF 60%; JUANPABLO 02/2015 EF 55% Essential hypertension (Chronic 08/17/11) Diabetic neuropathy (Chronic 03/07/15) Dr Robbins Chronic nonalcoholic liver disease (Chronic 08/17/11) [facility] current use of 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 (Chronic) Apixaban for AF GERD (gastroesophageal reflux disease) (Chronic) Severe anxiety with panic (Chronic) L-T BZD Rx Medical History COVID (~06/2023) Gouty arthropathy, unspecified (08/17/11) Shingles Lumbar radiculopathy Hypokalemia Prolonged DE interval Hematoma Caregiver burden ; 02/2022 Atrial fibrillation s/p ablation 02/2016 Diarrhea [facility] [place] GI 2019; Kefir & Psyllium husk help Trigger finger, right ring finger Trigger finger, left ring finger Trigger finger, left middle finger Fracture of rib of right side (08/26/15) Fracture of right shoulder (08/26/15) Unexplained weight loss GI work-up NEG; Mirtaz helped Chest pain Chronic pain Back; L-T Tramadol RX (which was discont 2018); h/o compression fractures Mid back pain compression fx Sleeping difficulty (07/01/15) Improved on Mirtaz Primary osteoarthritis of right knee (08/24/16) Frequent falls (04/05/17) Chronic atrial fibrillation (11/19/15) s/p Ablation 02/2016 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 declined ablation at [facility] [place] Patient's dual-chamber pacemaker is functioning normally with ample generator life remaining. She has had no further PAF episodes noted. Her presenting rhythm is atrial pacing and underlying rhythm is sinus bradycardia. No reprogramming needed. She does not use remote monitoring. Chronic fatigue syndrome Surgical History History of hysterectomy cardioversion (07/20/14) Dr Garcia, [facility] cardiac catheterization (11/27/14) 3 vessel disease, occluded, Grafts: mammary artery and 2 venous grafts are all open. Trigger Finger release R 4th digit Replacement of total knee joint (09/14/11) CELESTE LEFT TKA Pacemaker (09/05/15) [facility] [place], [employer] DUAL CHAMBER Extraction of cataract (11/11/15) L cataract Goddard R cataract-Dr Hutson Ablation for A Fib (03/10/16) Catheter ablatioin for A Flutter and catheter ablatiion for A Fib; [facility] [place] [facility] Dr David King H/O surgical procedure a. left cataract surgery b. Duane fundoplication c. carpal tunnel syndrome d. bilateral tubal ligation e. hysterectomy f. arthroscopy left knee 09/2011 g. s/p breast reduction Family History Mother , perf ulcer at age 78. Hip fracture mother from complications of hip fracture Father , stroke at age 80. No problems noted. Sister No problems noted. Social History Smoking/Tobacco Use Status: Never Second Hand Exposure: No Smoking risk assessment performed?: Yes Alcohol Intake: never Drug use: Never Substance use type: does not use Adopted: No (raised by Aunt and Uncle) Caregiver/Support person: Yes (youngest daughter: Jacquelyn Chavira is healthcare agent ph:[phone]) Foster care: No Household members: spouse Housing: house Number of Children: 4 Current gender identity: female What is your relationship status?: Panel score (0-1 are the most socially isolated patients): 1 What type of physical activity do you participate in: additional Details: gardening, playing with dog Shasta/Advent: Jehov[employer] Witness Seatbelt use: always Drive intox or ride w/intox cat driver: No Water heater temp set <120 deg: Yes Working smoke detector in home: Yes Fire extinguisher in home: Yes Carbon monox detector in home: Yes Firearms in home: Yes Do you feel safe at home: Yes Do you feel safe in your relationship?: Yes History History 5 Para Hx # Term Pregnancies 4 Multiple births Hx # Pregnancies Ectopic pregnancies AB induced Hx Number of Living Children AB spontaneous
--- NOTE | 2024-03-01 19:30 | DI.RAD_ITS ---
Exam(s) XR PORTABLE CHEST AP EXAM: XR PORTABLE CHEST AP CLINICAL HISTORY: Tachypnea TECHNIQUE: 2D digital imaging was performed. COMPARISON: CR,XR XR CHEST 2V PA LATERAL from 01/19/2024 FINDINGS: LUNGS: Mild interstitial changes, likely chronic. Otherwise clear. No pleural abnormality seen. HEART: Enlarged. Prior CABG. Pacemaker again noted. AORTA: Tortuous and calcified. BONES: Unremarkable for age. Soft tissues: Unremarkable. IMPRESSION: No acute findings. DATA REPOSITORY: RADIATION DOSE DELIVERED:
[2024-03-01 19:41] LABS: Troponin I < 50 ng/L (< or =60)
--- NOTE | 2024-03-01 20:15 | DI.VRAD_ITS ---
PROCEDURE INFORMATION: Exam: XR Chest Exam date and time: 03/01/2024 7:48 PM Age: 83 years old Clinical indication: Tachypnea TECHNIQUE: Imaging protocol: Radiologic exam of the chest. Views: 1 view. COMPARISON: CR XR CHEST 2V PA LATERAL 01/19/2024 9:51 PM FINDINGS: Lungs: No gross focal pulmonary consolidation. Pleural spaces: No pleural effusion or pneumothorax demonstrated. Heart/Mediastinum: Mildly enlarged heart. Atherosclerotic calcification at the apex of the aortic arch. Prior median sternotomy. Cardiac pacemaker implanted in the left anterior chest wall with leads projecting over the right atrium and ventricle. Vasculature: Prominent carotid artery calcification demonstrated in the left neck. Bones/joints: Visualized bony structures grossly intact, as seen. IMPRESSION: 1. No active disease is seen in the chest. 2. Prominent atherosclerotic calcification demonstrated in the left carotid artery. Dictated and Authenticated by: Barron Lainez MD. Ordering:ROB Bear MD
[2024-03-01] MEDS: Normal Saline Flush 10 ML SYR IVP (20:20)
--- NOTE | 2024-03-01 20:31 | HPE_ITS ---
Date of service: 03/01/24 Time of Service: 20:32 Assessment and Plan Assessment and plan (1) Drug overdose: Status: Acute Assessment and plan: Intentional drug overdose, but my sense is that there is not, at least at present, any intent to harm. In any case the present hemodynamics suggest she may be having some beta britta withdrawal as I don't see anything on her med list which would lead to hypertension and tachycardia; but suffice to say I otherwise see no overt clinical signs of drug toxicity. Will give 25 Lopressor now and otherwise plan on resuming usual meds in AM. patient is requesting something to sleep and I see no reason we could not give her her usual dose of Ativan insofar as any drug effect would have largely worn off at this point. Reviewed ADs, requests DNR History of Present Illness History of Present Illness Chief Complaint: found down Narrative: 83 female with h/o AF. Today is second anniversary of 's . Patient states that last night she took extra pills, not in an attempt to harm herself, but just to dull the sadness. Took 5 Ativan, unknown number Mirtazapine and unknown number of her cardiac pill (which could be either Carvedilol, Losartan or Amplodipine by my list). Last known usual state yesterday afternoon, and daughter found her down this afternoon and brought to ER. In ER findings of note for initial confusion (which is much improved at time of my visit); hypertension and tachycardia (AF-flutter), white count 12, K 3.4 and Mg 1.2 (both of which have been replenished) and negative head CT (CTA did show high grade stenosis right ICA but per daughter this is a known item); trop negative x 2 and EKG shows baseline lateral TW changes, no acute ischemic changes. I was asked to evaluate for admission. As mentioned patient's sensorium is clearing. States to me that she was sad in thinking about 's but was not, and is not, trying to actually hurt herself, just wanted to ease the pain somehow. Note that she has not had any of her usual morning meds today. Review of Systems Narrative: per HPI PFSH All Active Problems (Updated 03/01/24 @ 20:43 by Cristofer Bradford MD) Drug overdose (Acute) Elevated parathyroid hormone (Acute ~2023) Chronic kidney disease, stage III (moderate) (Acute 08/17/11) Coronary artery disease (Chronic) a. inferior HI 1984 b. HI with CABG 1992 Patient is doing well with no chest pain. Continue on current medications. DM type 2, controlled, with complication (Acute) complications: neuropathy, cardiovascular disease Corns and callosities (Acute) Pain in foot (Acute) Nail dystrophy (Acute) Onychomycosis (Acute) Pain in joint, foot, left (Acute) Chronic toe pain, left foot (Acute) Hypercalcemia (Acute ~05/2023) B12 deficiency (Acute) Mitral regurgitation (Chronic ~2021) ECHO 09/2021 meterman prescription benzodiazepine use (Chronic) Atherosclerosis of right carotid artery (Chronic ~2021) Medically managing--not a surgical candidate Subjective memory complaints (Acute ~06/2021) MoCA ; executive difficulty Presence of permanent cardiac pacemaker (Acute ~2015) Dual lead Medtronic pacemaker 09/05/2015; Her presenting rhythm is atrial pacing and underlying rhythm is sinus Generalized anxiety disorder (Acute) Abnormal echocardiogram (Acute ~05/2018) 05/28/2018 ([facility] 1+/4+ mitral regurg; EF 56% Depression (Chronic) a. h/o ECT treatment x1 (per Liliana very effective) b. formerly followed by Chauncey Gracia NP c. On multiple medications d. h/o psychiatric hospitalizations for reported bipolar e. h/o suicide attempts Retinal dot hemorrhage of both eyes (Acute ~10/2019) 08/15/2019 Dr Aliza Eng Osteoporosis (Chronic) See 10/2018 CT T11 compression fracture 2017 DEXA osteopenia [id number]: Boniva x2, which she tolerated, thus switching to Reclast (better outcome data) ASCVD (arteriosclerotic cardiovascular disease) (Chronic) cardiac cath Essential tremor (Chronic 04/02/08) R > L, EVAL PRICE 2008; MOWCHUN [id number]; responds to low dose propranolol Hyperlipidemia (Chronic 08/17/11) Crestor switched to Atorvastatin per ins Generalized atherosclerosis (Chronic 08/17/11) H/O CABG 1993; Cath 11/2015: all three grafts open; EF 60%; JUANPABLO 02/2015 EF 55% Essential hypertension (Chronic 08/17/11) Diabetic neuropathy (Chronic 03/07/15) Dr Robbins Chronic nonalcoholic liver disease (Chronic 08/17/11) meterman current use of 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 (Chronic) Apixaban for AF GERD (gastroesophageal reflux disease) (Chronic) Severe anxiety with panic (Chronic) L-T BZD Rx Medical History COVID (~06/2023) Gouty arthropathy, unspecified (08/17/11) Shingles Lumbar radiculopathy Hypokalemia Prolonged [place] interval Hematoma Caregiver burden ; 02/2022 Atrial fibrillation s/p ablation 02/2016 Diarrhea [facility] GI 2020; Kefir & Psyllium husk help Trigger finger, right ring finger Trigger finger, left ring finger Trigger finger, left middle finger Fracture of rib of right side (08/26/15) Fracture of right shoulder (08/26/15) Unexplained weight loss GI work-up NEG; Mirtaz helped Chest pain Chronic pain Back; L-T Tramadol RX (which was discont 2018); h/o compression fractures Mid back pain compression fx Sleeping difficulty (07/01/15) Improved on Mirtaz Primary osteoarthritis of right knee (08/24/16) Frequent falls (04/05/17) Chronic atrial fibrillation (11/19/15) s/p Ablation 02/2016 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 declined ablation at [facility] Patient's dual-chamber pacemaker is functioning normally with ample generator life remaining. She has had no further PAF episodes noted. Her presenting rhythm is atrial pacing and underlying rhythm is sinus bradycardia. No reprogramming needed. She does not use remote monitoring. Chronic fatigue syndrome Surgical History History of hysterectomy cardioversion (07/20/14) Dr Garcia, [facility] cardiac catheterization (11/27/14) 3 vessel disease, occluded, Grafts: mammary artery and 2 venous grafts are all open. Trigger Finger release R 4th digit Replacement of total knee joint (09/14/11) CELESTE LEFT TKA Pacemaker (09/05/15) [facility], [employer] DUAL CHAMBER Extraction of cataract (11/11/15) L cataract [place] R cataract-Dr Hutson Ablation for A Fib (03/10/16) Catheter ablatioin for A Flutter and catheter ablatiion for A Fib; [facility] [place] David King H/O surgical procedure a. left cataract surgery b. Duane fundoplication c. carpal tunnel syndrome d. bilateral tubal ligation e. hysterectomy f. arthroscopy left knee 09/2011 g. s/p breast reduction Family History Mother , perf ulcer at age 78. Hip fracture mother from complications of hip fracture Father , stroke at age 80. No problems noted. Sister No problems noted. Social History Smoking/Tobacco Use Status: Never Second Hand Exposure: No Smoking risk assessment performed?: Yes Alcohol Intake: never Drug use: Never Substance use type: does not use Adopted: No (raised by Aunt and Uncle) Caregiver/Support person: Yes (youngest daughter: Jacquelyn Chavira is healthcare agent [phone]) Foster care: No Household members: spouse Housing: house Number of Children: 4 Current gender identity: female What is your relationship status?: Panel score (0-1 are the most socially isolated patients): 1 What type of physical activity do you participate in: additional Details: gardening, playing with dog Shasta/Lutheran: Mandaen Seatbelt use: always Drive intox or ride w/intox dairy truck driver: No Water heater temp set <120 deg: Yes Working smoke detector in home: Yes Fire extinguisher in home: Yes Carbon monox detector in home: Yes Firearms in home: Yes Do you feel safe at home: Yes Do you feel safe in your relationship?: Yes History History 2 5 Para Hx # Term Pregnancies 4 Multiple births Hx # Pregnancies Ectopic pregnancies AB induced Hx Number of Living Children AB spontaneous Meds Allergies and Home Medications Allergies Allergy/AdvReac Type Severity Reaction Status Date / Time nifedipine Allergy Mild Hives Verified 01/31/24 11:37 amiodarone AdvReac Severe tremor Verified 01/31/24 11:37 oxycodone AdvReac Severe heavy Verified 01/31/24 11:37 sedation valacyclovir AdvReac Severe Other (See Verified 01/31/24 11:37 Comment) amoxicillin AdvReac Intermediate sore Verified 01/31/24 11:37 burning mouth Anesthetics - Amide Type - AdvReac Intermediate anxious Verified 01/31/24 11:37 Select A (Anesthetics - Amide Type) diazepam AdvReac Intermediate Agitation Verified 01/31/24 11:37 indomethacin AdvReac Intermediate headache, Verified 01/31/24 11:37 flush metformin AdvReac Intermediate Diarrhea Verified 01/31/24 11:37 Home Medications ?Medication ?Instructions ?Recorded ?Confirmed ?Type acetaminophen 325 mg tablet 650 mg (2 x 325 mg) PO Q4H PRN PRN 01/15/16 03/01/24 Rx (Tylenol) #0 tabs zoledronic acid 5 mg/100 mL in See Rx Instructions IV .once per 06/23/21 03/01/24 Rx mannitol 5 %-water intravenous year #100 mL piggybck (Reclast) nitroglycerin 0.4 mg sublingual 0.4 mg sublingual Q5 MIN PRN X3 04/15/22 03/01/24 Rx tablet (Nitrostat) PRN chest pain #20 tabs mupirocin 2 % topical ointment 1 applic topical BID #15 grams 05/13/22 03/01/24 Rx omeprazole 20 mg tablet,delayed 20 mg PO .every other day #45 tabs 02/24/23 03/01/24 Rx release acyclovir 5 % topical ointment 15 g topical 5X/DAY #0 grams 03/29/23 03/01/24 Rx gabapentin 300 mg capsule 300 mg PO BID #180 caps 04/19/23 03/01/24 Rx ketoconazole 2 % topical cream 1 applic topical DAILY 3 months 05/24/23 03/01/24 Rx #60 grams nystatin 100,000 unit/gram topical 1 applic topical BID PRN robin 07/07/23 03/01/24 Rx cream rash #30 grams carvedilol 6.25 mg tablet See Rx Instructions .Route 07/20/23 03/01/24 Rx .COMPLEX #180 tabs apixaban 5 mg tablet (Eliquis) 5 mg PO BID #180 tabs 07/28/23 03/01/24 Rx lamotrigine 100 mg tablet See Rx Instructions .Route 08/16/23 03/01/24 Rx .COMPLEX #180 tabs citalopram 20 mg tablet See Rx Instructions .Route 08/23/23 03/01/24 Rx .COMPLEX #90 tabs metformin 500 mg tablet,extended See Rx Instructions .Route 08/26/23 03/01/24 Rx release 24 hr .COMPLEX #90 tabs atorvastatin 40 mg tablet See Rx Instructions .Route 09/15/23 03/01/24 Rx .COMPLEX #90 tabs carvedilol 3.125 mg tablet 3.125 mg PO BID #180 tabs 09/15/23 03/01/24 Rx blood sugar diagnostic (Accu-Chek #100 ea 10/04/23 03/01/24 Rx Guide test strips) blood-glucose meter (Accu-Chek #1 ea 10/04/23 03/01/24 Rx Guide Glucose Meter) lancets (Accu-Chek Softclix #100 ea 10/04/23 03/01/24 Rx Lancets) lorazepam 0.5 mg tablet 0.5 mg PO DAILY PRN acute anxiety 10/20/23 03/01/24 Rx #30 tabs mirtazapine 7.5 mg tablet 7.5 mg PO QHS #90 tabs 10/26/23 03/01/24 Rx urea 40 % topical cream See Rx Instructions .Route 11/18/23 03/01/24 Rx .COMPLEX #85 grams metamucil 1 unit PO DAILY PRN #30 tabs 11/22/23 03/01/24 Rx losartan 50 mg tablet 50 mg PO DAILY #90 tabs 12/22/23 03/01/24 Rx cyclobenzaprine 5 mg tablet See Rx Instructions .Route 02/10/24 03/01/24 Rx .COMPLEX #20 tabs amlodipine 5 mg tablet 5 mg PO DAILY 03/01/24 03/01/24 History lidocaine 5 % topical patch 1 patch transdermal DAILY PRN 03/01/24 03/01/24 History Exam Narrative Exam Narrative: 203/129, 113, 36.5, 20, 96% RA. HEENT atraumatic; neck supple, no spinal tenderness; lungs clear; heart irr/irr; abdomen soft and NT; extremities w/o edema; neuro awake, lucid, though somewhat slow of speech, Ox3, moves all 4s Results Labs 03/01/24 16:05 03/01/24 16:32 Labs: Laboratory Results - last 24 hr 03/01/24 03/01/24 03/01/24 15:45 16:05 16:20 WBC 12.09 H RBC 4.37 Hgb 14.4 Hct 42.8 MCV 98 H MCH 33.0 MCHC 33.6 RDW 12.1 Plt Count 100 L MPV Immature Gran % 0.3 Neutrophils % 84.0 Lymphocytes % 8.6 Monocytes % 6.9 Eosinophils % 0.0 Basophils % 0.2 Nucleated RBC % 0.0 Absolute Neutrophils 10.16 H Absolute Lymphocytes 1.04 L Absolute Monocytes 0.83 H Absolute Eosinophils 0.00 Absolute Basophils 0.02 PT 11.4 H INR 1.1 Sodium Cancelled Potassium Cancelled Chloride Cancelled Carbon Dioxide Cancelled Anion Gap Cancelled BUN Cancelled Creatinine Cancelled Est GFR (CKD-EPI 2020) Cancelled Glucose Cancelled Calcium Cancelled Magnesium Cancelled Total Bilirubin Cancelled AST Cancelled ALT Cancelled Alkaline Phosphatase Cancelled Creatine Kinase Cancelled Troponin I Cancelled Total Protein Cancelled Albumin Cancelled TSH Cancelled Urine Color Yellow Urine Clarity Clear Urine pH 7.0 Ur Specific [place] 1.025 Urine Protein >=300 H Urine Ketones 15 H Urine Blood Moderate H Urine Nitrite Negative Urine Bilirubin Negative Urine Urobilinogen 0.2 Ur Leukocyte Esterase Negative Urine RBC 0-2 Urine WBC 0-2 Ur Epithelial Cells Rare Urine Crystals Negative Urine Bacteria Negative Urine Casts Negative Urine Mucus Trace Ur Culture Indicated? No Urine Glucose Negative Salicylates < 2.8 Urine Opiates Screen Negative Urine Methadone Screen Negative Acetaminophen < 2 Ur Barbiturates Screen Negative Ur Tricyclics Screen Negative Ur Amphetamines Screen Negative U Benzodiazepines Scrn Negative Urine Cocaine Screen Negative Ur THC Screen Negative Ethyl Alcohol Cancelled 03/01/24 03/01/24 16:32 19:17 WBC RBC Hgb Hct MCV MCH MCHC RDW Plt Count MPV Immature Gran % Neutrophils % Lymphocytes % Monocytes % Eosinophils % Basophils % Nucleated RBC % Absolute Neutrophils Absolute Lymphocytes Absolute Monocytes Absolute Eosinophils Absolute Basophils PT INR Sodium 137 Potassium 3.4 L Chloride 100 Carbon Dioxide 25.0 Anion Gap 12.0 H BUN 13 Creatinine 0.8 Est GFR (CKD-EPI 2020) 73.98 Glucose 151 H Calcium 10.3 H Magnesium 1.2 L Total Bilirubin 1.14 H AST 23 ALT 19 Alkaline Phosphatase 42 L Creatine Kinase 129 Troponin I < 50 < 50 Total Protein 7.8 Albumin 4.2 TSH Urine Color Urine Clarity Urine pH Ur Specific [place] Urine Protein Urine Ketones Urine Blood Urine Nitrite Urine Bilirubin Urine Urobilinogen Ur Leukocyte Esterase Urine RBC Urine WBC Ur Epithelial Cells Urine Crystals Urine Bacteria Urine Casts Urine Mucus Ur Culture Indicated? Urine Glucose Salicylates Urine Opiates Screen Urine Methadone Screen Acetaminophen Ur Barbiturates Screen Ur Tricyclics Screen Ur Amphetamines Screen U Benzodiazepines Scrn Urine Cocaine Screen Ur THC Screen Ethyl Alcohol < 3.0 Last Vital Signs Temp 36.5 C 03/01/24 18:39 Pulse 113 H 03/01/24 20:15 Resp 20 03/01/24 20:15 BP 203/129 H 03/01/24 20:15 Pulse Ox 96 03/01/24 20:00 Time Spent Time spent with Patient: 55-74 minutes Time was spent: preparing to see the patient(eg.review tests), obtaining and/or reviewing separately otained hiistory, ordering medications,tests, procedures, referring, communicating with other health patient care manager and indepentently interpreting results
--- NOTE | 2024-03-01 21:53 | W.PC.ACHO ---
Registration Status: Primary Language: Preferred Language: ED Information & Data Chief Complaint AMS/LOC 03/01/24 18:39 Chief Complaint AMS/LOC 03/01/24 17:53 Triage Note lives alone found on floor, 03/01/24 15:49 cold wet with urine, bruising to left face left rib pain HTN tachy per ems Medical / Surgical History (Last Reviewed 03/01/24 @ 20:40 by Cristofer Bradford MD) COVID (~06/2023) Gouty arthropathy, unspecified (08/17/11) Shingles Lumbar radiculopathy Hypokalemia Prolonged [place] interval Hematoma Caregiver burden Atrial fibrillation Diarrhea Trigger finger, right ring finger Trigger finger, left ring finger Trigger finger, left middle finger Fracture of rib of right side (08/26/15) Fracture of right shoulder (08/26/15) Unexplained weight loss Chest pain Chronic pain Mid back pain Sleeping difficulty (07/01/15) Primary osteoarthritis of right knee (08/24/16) Frequent falls (04/05/17) Chronic atrial fibrillation (11/19/15) 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) Chronic fatigue syndrome (Last Reviewed 03/01/24 @ 20:40 by Cristofer Bradford MD) History of hysterectomy cardioversion (07/20/14) cardiac catheterization (11/27/14) Trigger Finger release Replacement of total knee joint (09/14/11) Pacemaker (09/05/15) Extraction of cataract (11/11/15) Ablation for A Fib (03/10/16) H/O surgical procedure Most Recent Vital Signs Temperature 36.5 C 03/01/24 18:39 Temperature Source Temporal Artery Scan 03/01/24 18:39 Pulse 113 H 03/01/24 20:15 Pulse 123 H 03/01/24 20:15 Respiratory Rate 20 03/01/24 20:15 Respiratory Effort Non-Labored 03/01/24 18:39 Respiratory Depth Normal 03/01/24 18:39 Respiratory Pattern Normal 03/01/24 18:39 Blood Pressure 203/129 H 03/01/24 20:15 Blood Pressure Mean 153 03/01/24 20:15 Pulse Oximetry 96 03/01/24 20:00 Pain Level 4 03/01/24 18:39 Allergies nifedipine Allergy (Mild, Verified 01/31/24 11:37) Hives remote ; may have been the seafood rather than the nifedipine amiodarone Adverse Reaction (Severe, Verified 01/31/24 11:37) tremor oxycodone Adverse Reaction (Severe, Verified 01/31/24 11:37) heavy sedation valacyclovir Adverse Reaction (Severe, Verified 01/31/24 11:37) Other (See Comment) Confusion amoxicillin Adverse Reaction (Intermediate, Verified 01/31/24 11:37) sore burning mouth Anesthetics - Amide Type - Select A (Anesthetics - Amide Type) Adverse Reaction (Intermediate, Verified 01/31/24 11:37) anxious diazepam Adverse Reaction (Intermediate, Verified 01/31/24 11:37) Agitation opposite reaction; remote, couldn't lie still after diazepam indomethacin Adverse Reaction (Intermediate, Verified 01/31/24 11:37) headache, flush metformin Adverse Reaction (Intermediate, Verified 01/31/24 11:37) Diarrhea Precautions Isolation Fall precaution 03/01/24 18:39 Active Medications Generic Name Dose Route Start Last Admin Trade Name Freq PRN Reason Stop Dose Admin Iohexol 100 ml 03/01/24 17:45 03/01/24 17:46 Omnipaque 350 Mg/Ml 100 Ml Btl IJ 03/31/24 23:59 100 ml DIRECTED CINTHYA Administration Sodium Chloride 0 ml 03/01/24 20:00 03/01/24 20:20 Normal Saline Flush 10 Ml Syr IVP 3 ml BID CINTHYA Administration Sodium Chloride 50 ml 03/01/24 17:45 03/01/24 17:43 Normal Saline - Diluent 50 Ml Vial IJ 50 ml .FOR DI USE CINTHYA Administration IV IV Catheter Type [Left Saline Lock Antecubital] IV Catheter Gauge [Left 20 Antecubital] Diet Orders Category Date Time Status Regular/Normal [DIET] Nutrition 03/02/24 Breakfast Ordered Diagnostics 03/01/24 03/01/24 03/01/24 Range/Units 19:17 16:32 16:20 WBC (4.4-10.8) 10^3/uL RBC (3.93-5.22) 10^6/uL Hgb (11.2-15.7) g/dL Hct (36.0-46.0) % MCV (80-95) fL MCH (27.0-33.0) pg MCHC (32.0-36.0) % RDW (11.7-14.6) % Plt Count (130-400) 10^3/uL MPV (8.0-11.0) fL Immature Gran % % Neutrophils % % Lymphocytes % % Monocytes % % Eosinophils % % Basophils % % Nucleated RBC % (0.0-0.3) % Absolute Neutrophils (1.2-6.7) 10^3/uL Absolute Lymphocytes (1.2-3.4) 10^3/uL Absolute Monocytes (0.1-0.8) 10^3/uL Absolute Eosinophils (0.0-0.7) 10^3/uL Absolute Basophils (0.0-0.2) 10^3/uL PT (9.1-11.1) sec INR (0.9-1.1) Sodium 137 Potassium 3.4 L Chloride 100 Carbon Dioxide 25.0 Anion Gap 12.0 H BUN 13 Creatinine 0.8 Est GFR (CKD-EPI 2020) 73.98 Glucose 151 H Calcium 10.3 H Magnesium 1.2 L Total Bilirubin 1.14 H AST 23 ALT 19 Alkaline Phosphatase 42 L Creatine Kinase 129 Troponin I < 50 < 50 Total Protein 7.8 Albumin 4.2 TSH Urine Color Yellow (Yellow) Urine Clarity Clear (Clear) Urine pH 7.0 (5-8) Ur Specific [place] 1.025 (1.005-1.025) Urine Protein >=300 H (Neg-Trace) mg/dL Urine Ketones 15 H (Negative) mg/dL Urine Blood Moderate H (Negative) Urine Nitrite Negative (Negative) Urine Bilirubin Negative (Negative) Urine Urobilinogen 0.2 (Up to 0.2) mg/dL Ur Leukocyte Esterase Negative (Negative) Urine RBC 0-2 (0-2) HPF Urine WBC 0-2 (0-5) HPF Ur Epithelial Cells Rare (Negative) HPF Urine Crystals Negative (Negative) HPF Urine Bacteria Negative (Negative) HPF Urine Casts Negative (Negative) LPF Urine Mucus Trace (Negative) Ur Culture Indicated? No Urine Glucose Negative (Negative) mg/dL Salicylates (<2.8) mg/dL Urine Opiates Screen Negative (Negative) Urine Methadone Screen Negative (Negative) Acetaminophen (10-30) ug/mL Ur Barbiturates Screen Negative (Negative) Ur Tricyclics Screen Negative (Negative) Ur Amphetamines Screen Negative (Negative) U Benzodiazepines Scrn Negative (Negative) Urine Cocaine Screen Negative (Negative) Ur THC Screen Negative (Negative) Ethyl Alcohol < 3.0 03/01/24 03/01/24 Range/Units 16:05 15:45 WBC 12.09 H (4.4-10.8) 10^3/uL RBC 4.37 (3.93-5.22) 10^6/uL Hgb 14.4 (11.2-15.7) g/dL Hct 42.8 (36.0-46.0) % MCV 98 H (80-95) fL MCH 33.0 (27.0-33.0) pg MCHC 33.6 (32.0-36.0) % RDW 12.1 (11.7-14.6) % Plt Count 100 L (130-400) 10^3/uL MPV (8.0-11.0) fL Immature Gran % 0.3 % Neutrophils % 84.0 % Lymphocytes % 8.6 % Monocytes % 6.9 % Eosinophils % 0.0 % Basophils % 0.2 % Nucleated RBC % 0.0 (0.0-0.3) % Absolute Neutrophils 10.16 H (1.2-6.7) 10^3/uL Absolute Lymphocytes 1.04 L (1.2-3.4) 10^3/uL Absolute Monocytes 0.83 H (0.1-0.8) 10^3/uL Absolute Eosinophils 0.00 (0.0-0.7) 10^3/uL Absolute Basophils 0.02 (0.0-0.2) 10^3/uL PT 11.4 H (9.1-11.1) sec INR 1.1 (0.9-1.1) Sodium Cancelled Potassium Cancelled Chloride Cancelled Carbon Dioxide Cancelled Anion Gap Cancelled BUN Cancelled Creatinine Cancelled Est GFR (CKD-EPI 2020) Cancelled Glucose Cancelled Calcium Cancelled Magnesium Cancelled Total Bilirubin Cancelled AST Cancelled ALT Cancelled Alkaline Phosphatase Cancelled Creatine Kinase Cancelled Troponin I Cancelled Total Protein Cancelled Albumin Cancelled TSH Cancelled Urine Color (Yellow) Urine Clarity (Clear) Urine pH (5-8) Ur Specific [place] (1.005-1.025) Urine Protein (Neg-Trace) mg/dL Urine Ketones (Negative) mg/dL Urine Blood (Negative) Urine Nitrite (Negative) Urine Bilirubin (Negative) Urine Urobilinogen (Up to 0.2) mg/dL Ur Leukocyte Esterase (Negative) Urine RBC (0-2) HPF Urine WBC (0-5) HPF Ur Epithelial Cells (Negative) HPF Urine Crystals (Negative) HPF Urine Bacteria (Negative) HPF Urine Casts (Negative) LPF Urine Mucus (Negative) Ur Culture Indicated? Urine Glucose (Negative) mg/dL Salicylates < 2.8 (<2.8) mg/dL Urine Opiates Screen (Negative) Urine Methadone Screen (Negative) Acetaminophen < 2 (10-30) ug/mL Ur Barbiturates Screen (Negative) Ur Tricyclics Screen (Negative) Ur Amphetamines Screen (Negative) U Benzodiazepines Scrn (Negative) Urine Cocaine Screen (Negative) Ur THC Screen (Negative) Ethyl Alcohol Cancelled [id number] Documentation Fingerstick Glucose Start: 03/01/24 15:45 Freq: .Stat Status: Active Protocol: Activity Type Activity Date Activity User E-sign Co-sign Detail Recorded Client Recorded Date Recorded By Document 03/01/24 16:03 BKG DAEMON(3) [id number] 03/01/24 16:08 BKG DAEMON(4) Intake and Output - 24 Hour Total 03/01/24 15:39 thru 03/01/24 17:00 Intake Total 10 Output Total 1800 Balance -1790 Weight 63.503 kg Intake: IV 10 Output: Urine 1800 Other: Urine Color Yellow Urine Appearance Clear Falls Risk Assessment History of Falls Admit Due to Fall 03/01/24 18:39 Contributing Factors Confusion,Unstable 03/01/24 18:39 Ambulatory Aids Uses ambulatory device 03/01/24 18:39 Tubes/Lines W/no contributing factors 03/01/24 18:39 Gait Evaluation W/no contributing factors 03/01/24 18:39 Cognition Cognitive impairment 03/01/24 18:39 Fall Total Score 81 03/01/24 18:39 Level of Risk Maximum Risk 03/01/24 18:39 Problems (Last Reviewed 03/01/24 @ 20:40 by Cristofer Bradford MD) Drug overdose (Acute) v v v v v v v v v Sending and/or Receiving Nurses: Please use comment section below to note any information pertinent to the patient hand-off not included above. Information / Comments: 83 F DNR/DNI Complicated grief, 2nd anniversary of 's was yesterday. at bedtime she took 5 lorazepam and 2 mirtaze, wanted to not feel sad anymore fell on the floor last night, was found this morning by daughter not rabdo BP is high, Dr Bradford is aware, has PO 25mg lopressor ordered, couldn't pull it in the ED Lac 20g got in ED: 1L LR NS with 20meq K+ for potassium of 3.4 2g Mag for magnesium of 1.7 afib, sits 110s-120s A little confused, severe weakness, has not gotten out of bed for ED, fragile skin [place] to gravity, 1800ml output at 1700 hx of DMT2, fingerstick around 1800 was 155 takes metformin for blood sugar control Left side of face is red and puffy from laying on the floor unknown LBM Report received from: Mari Wilkins @ [id number]
[2024-03-01] MEDS: Carvedilol 3.125 MG TAB PO (22:30)
[2024-03-01] MEDS: Lactated Ringers 1,000 ML 80 ML IV (22:31)
[2024-03-01] MEDS: Metoprolol 25 MG TAB PO (22:33)
[2024-03-01] MEDS: lamoTRIgine 100 MG TAB PO (22:33)
[2024-03-01] MEDS: Mirtazapine 15 MG TAB 7.5 MG PO (22:33)
[2024-03-01] MEDS: Citalopram 20 MG TAB PO (22:34)
[2024-03-01] MEDS: Carvedilol 6.25 MG TAB PO (23:46)
[2024-03-02] VITALS (7 sets, daily range): BP systolic 93–140; BP diastolic 54–92; PULSE 96–116; RESP 16–18; TEMP 36.1–37; O2SAT 93–98
[2024-03-02] MEDS: Acetaminophen 325 MG TAB 650 MG PO (00:34)
[2024-03-02] MEDS: Normal Saline Flush 10 ML SYR IVP ×2 (08:25→22:48)
[2024-03-02] MEDS: Lactated Ringers 1,000 ML 80 ML IV (08:26)
[2024-03-02] MEDS: Omeprazole 20 MG CAPCR PO (08:27)
[2024-03-02] MEDS: Carvedilol 6.25 MG TAB PO ×2 (08:28→22:47)
[2024-03-02] MEDS: Atorvastatin 40 MG TAB PO (08:28)
[2024-03-02] MEDS: Gabapentin 300 MG CAP PO ×2 (08:28→22:47)
[2024-03-02] MEDS: Carvedilol 3.125 MG TAB PO ×2 (08:28→22:46)
[2024-03-02] MEDS: lamoTRIgine 100 MG TAB PO ×2 (08:29→22:47)
[2024-03-02] MEDS: Apixaban 2.5 MG TAB PO ×2 (08:29→22:46)
[2024-03-02] MEDS: metFORMIN C.R. 500 MG TABCR PO (08:29)
--- NOTE | 2024-03-02 10:21 | PDOC.CMIN ---
Date of service: 03/02/24 Time of Service: 10:21 Care Management Initial Assmt Initial Assessment Reason for Hospitalization: Drug OD Functional Status/Living Situation Town of Residence: [place] Resides with: Other (Resides with her 95 year old aunt) Significant Other/Family: Local Natural Supports: Children: Daughter Jacquelyn(ELLEN Dickson) live locally. 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) Instrumental Activities of Daily Living (ADLs): Independent Medications Medication Management: Issues/Barriers (May require support with medications.) Physical Functioning/Mobility Assistive Device: Has a walker and Cane, does not use Advance Directives Advance Directives: Do you have an Advance Directive: Y 04/13/18 15:49 AD On File at [facility]: Y 06/15/19 11:53 Date Asked 01/19/24 01/19/24 21:09 AD Date Reviewed 03/01/24 03/01/24 21:14 COLST On File at [facility] COLST Date Scanned Code Status Resuscitation Status DNR/DNI Insurance Coverage/Financial Issues Insurance: /BS of [place] Medicare Part A & B Financial Issues: None identified Care Team Visit Care Team Role Provider Type Linn Paulino NP Primary Care Provider NURSE PRACTITIONER Norma Mcintyre MD Emergency Provider [facility] STAFF PHYSICIAN Cristofer Bradford MD Admit Provider [facility] STAFF PHYSICIAN Attending Provider Discharge Potential Discharge Needs: PT Evaluation and Other ([facility] evaluation) Anticipated Barriers to Discharge: Other (Needs a mental health evaluation to determine SI risk) Patient/Family Education Needs: Review discharge instructions, discuss Ask Me Three Transportation: Private vehicle Plan: PT recommends home with New [facility] PT, when medically cleared for discharge. Mental Health eval is pending. CM will follow. PFSH All Active Problems (Updated 03/01/24 @ 20:43 by Cristofer Bradford MD) Drug overdose (Acute) Elevated parathyroid hormone (Acute ~2023) Chronic kidney disease, stage III (moderate) (Acute 08/17/11) Coronary artery disease (Chronic) a. inferior IA 1984 b. IA with CABG 1992 Patient is doing well with no chest pain. Continue on current medications. DM type 2, controlled, with complication (Acute) complications: neuropathy, cardiovascular disease Corns and callosities (Acute) Pain in foot (Acute) Nail dystrophy (Acute) Onychomycosis (Acute) Pain in joint, foot, left (Acute) Chronic toe pain, left foot (Acute) Hypercalcemia (Acute ~05/2023) B12 deficiency (Acute) Mitral regurgitation (Chronic ~2021) ECHO 09/2021 longterm prescription benzodiazepine use (Chronic) Atherosclerosis of right carotid artery (Chronic ~2021) Medically managing--not a surgical candidate Subjective memory complaints (Acute ~06/2021) MoCA 25/30; executive difficulty Presence of permanent cardiac pacemaker (Acute ~2015) Dual lead Medtronic pacemaker 09/05/2015; Her presenting rhythm is atrial pacing and underlying rhythm is sinus Generalized anxiety disorder (Acute) Abnormal echocardiogram (Acute ~05/2018) [place]28/[place] 1+/4+ mitral regurg; EF 56% Depression (Chronic) a. h/o ECT treatment x1 (per Liliana very effective) b. formerly followed by Chauncey Gracia NP c. On multiple medications d. h/o psychiatric hospitalizations for reported bipolar e. h/o suicide attempts Retinal dot hemorrhage of both eyes (Acute ~10/2019) 08/15/2019 Dr Aliza Eng Osteoporosis (Chronic) See 10/2018 CT T11 compression fracture 2017 DEXA osteopenia [id number]: Boniva x2, which she tolerated, thus switching to Reclast (better outcome data) ASCVD (arteriosclerotic cardiovascular disease) (Chronic) cardiac cath Essential tremor (Chronic 04/02/08) R > L, EVAL UMSTEPHONAR 2008; MOWCHUN [id number]; responds to low dose propranolol Hyperlipidemia (Chronic 08/17/11) Crestor switched to Atorvastatin per ins Generalized atherosclerosis (Chronic 08/17/11) H/O CABG 1993; Cath 11/2015: all three grafts open; EF 60%; JUANPABLO 02/2015 EF 55% Essential hypertension (Chronic 08/17/11) Diabetic neuropathy (Chronic 03/07/15) Dr Robbins Chronic nonalcoholic liver disease (Chronic 08/17/11) 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 of 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 (Chronic) Apixaban for AF GERD (gastroesophageal reflux disease) (Chronic) Severe anxiety with panic (Chronic) L-T BZD Rx Medical History COVID (~06/2023) Gouty arthropathy, unspecified (08/17/11) Shingles Lumbar radiculopathy Hypokalemia Prolonged [place] interval Hematoma Caregiver burden ; 02/2022 Atrial fibrillation s/p ablation 02/2016 Diarrhea [facility] GI 2020; Kefir & Psyllium husk help Trigger finger, right ring finger Trigger finger, left ring finger Trigger finger, left middle finger Fracture of rib of right side (08/26/15) Fracture of right shoulder (08/26/15) Unexplained weight loss GI work-up NEG; Mirtaz helped Chest pain Chronic pain Back; L-T Tramadol RX (which was discont 2018); h/o compression fractures Mid back pain compression fx Sleeping difficulty (07/01/15) Improved on Mirtaz Primary osteoarthritis of right knee (08/24/16) Frequent falls (04/05/17) Chronic atrial fibrillation (11/19/15) s/p Ablation 02/2016 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 declined ablation at [facility] Patient's dual-chamber pacemaker is functioning normally with ample generator life remaining. She has had no further PAF episodes noted. Her presenting rhythm is atrial pacing and underlying rhythm is sinus bradycardia. No reprogramming needed. She does not use remote monitoring. Chronic fatigue syndrome Surgical History History of hysterectomy cardioversion (07/20/14) Dr Garcia, [facility] cardiac catheterization (11/27/14) 3 vessel disease, occluded, Grafts: mammary artery and 2 venous grafts are all open. Trigger Finger release R 4th digit Replacement of total knee joint (09/14/11) CELESTE LEFT TKA Pacemaker (09/05/15) [facility] DUAL CHAMBER Extraction of cataract (11/11/15) L cataract Jayme R cataract-Dr Hutson Ablation for A Fib (03/10/16) Catheter ablatioin for A Flutter and catheter ablatiion for A Fib; [facility] [place] David King H/O surgical procedure a. left cataract surgery b. Duane fundoplication c. carpal tunnel syndrome d. bilateral tubal ligation e. hysterectomy f. arthroscopy left knee 09/2011 g. s/p breast reduction Family History Mother , perf ulcer at age 78. Hip fracture mother from complications of hip fracture Father , stroke at age 80. No problems noted. Sister No problems noted. Social History Smoking/Tobacco Use Status: Never Second Hand Exposure: No Smoking risk assessment performed?: Yes Alcohol Intake: never Drug use: Never Substance use type: does not use Adopted: No (raised by Aunt and Uncle) Caregiver/Support person: Yes (youngest daughter: Jacquelyn Chavira is healthcare agent [phone]) Foster care: No Household members: spouse Housing: house Number of Children: 4 Current gender identity: female What is your relationship status?: Panel score (0-1 are the most socially isolated patients): 1 What type of physical activity do you participate in: additional Details: gardening, playing with dog Shasta/Episcopalian: Catholic Seatbelt use: always Drive intox or ride w/intox flatbed driver: No Water heater temp set <120 deg: Yes Working smoke detector in home: Yes Fire extinguisher in home: Yes Carbon monox detector in home: Yes Firearms in home: Yes Do you feel safe at home: Yes Do you feel safe in your relationship?: Yes History History 5 Para Hx # Term Pregnancies 4 Multiple births Hx # Pregnancies Ectopic pregnancies AB induced Hx Number of Living Children AB spontaneous SDOH(Care Management) Screening Will the Patient Participate in the Screening?: Unable to obtain Health Related Social Needs Health related social needs details: lives independently confusion noted by daughter
--- NOTE | 2024-03-02 13:24 | NUR.NOTE ---
Access chart to get demographic information for Array evaluation request. Nursing Note:
--- NOTE | 2024-03-02 13:35 | IN_ITS ---
PT Notes Visit Reasons: s/p drug OD Inpatient Physical Therapy Evaluation Date: 03/02/2024 Referring Doctor: Guillermina Vela NP PT Orders: PT CONSULT: Eval/Treat Precautions: Fall. Standard. Activity as tolerated. Patient Profile/Admitting Diagnosis: Patient admitted 03/01/24 after presenting to ED as patient was found down at home with downtime duration unknown as patient lives alone. Patient wa admitted for management of of drug overdone. CT scan revealed high-grade stenosis of R ICA. PMHx: All Active Problems (Updated 03/01/24 @ 20:43 by Cristofer Bradford MD) Drug overdose (Acute) Elevated parathyroid hormone (Acute ~2023) Chronic kidney disease, stage III (moderate) (Acute 08/17/11) Coronary artery disease (Chronic) a. inferior TN 1984 b. TN with CABG 1992 Patient is doing well with no chest pain. Continue on current medications.DM type 2, controlled, with complication (Acute) complications: neuropathy, cardiovascular disease Corns and callosities (Acute) Pain in foot (Acute) Nail dystrophy (Acute) Onychomycosis (Acute) Pain in joint, foot, left (Acute) Chronic toe pain, left foot (Acute) Hypercalcemia (Acute ~05/2023) B12 deficiency (Acute) Mitral regurgitation (Chronic ~2021) ECHO 09/2021 group home prescription benzodiazepine use (Chronic) Atherosclerosis of right carotid artery (Chronic ~2021) Medically managing--not a surgical candidateSubjective memory complaints (Acute ~06/2021) MoCA 25/30; executive difficulty Presence of permanent cardiac pacemaker (Acute ~2015) Dual lead [employer]onic pacemaker 09/05/2015; Her presenting rhythm is atrial pacing and underlying rhythm is sinus Generalized anxiety disorder (Acute) Abnormal echocardiogram (Acute ~05/2018) 05/28/2018 ([facility] [place]): 1+/4+ mitral regurg; EF 56% Depression (Chronic) a. h/o ECT treatment x1 (per Liliana very effective) b. formerly followed by Chauncey Gracia NP c. On multiple medications d. h/o psychiatric hospitalizations for reported bipolar e. h/o suicide attempts Retinal dot hemorrhage of both eyes (Acute ~10/2019) 08/15/2019 Dr Aliza Eng Osteoporosis (Chronic) See 10/2018 CT T11 compression fracture 2016 DEXA osteopenia [id number]: Boniva x2, which she tolerated, thus switching to Reclast (better outcome data) ASCVD (arteriosclerotic cardiovascular disease) (Chronic) cardiac cathEssential tremor (Chronic 04/02/08) R > L, EVAL PRICE 2008; DINORAH[place]ASH [id number]; responds to low dose propranolol Hyperlipidemia (Chronic 08/17/11) Crestor switched to Atorvastatin per ins Generalized atherosclerosis (Chronic 08/17/11) H/O CABG 1993; Cath 11/2015: all three grafts open; EF 60%; JUANPABLO 02/2015 EF 55% Essential hypertension (Chronic 08/17/11) Diabetic neuropathy (Chronic 03/07/15) Dr Robbins Chronic nonalcoholic liver disease (Chronic 08/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) group home current use of 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 (Chronic) Apixaban for AFGERD (gastroesophageal reflux disease) (Chronic) Severe anxiety with panic (Chronic) L-T BZD Rx Medical History COVID (~06/2023) Gouty arthropathy, unspecified (08/17/11) Shingles Lumbar radiculopathy Hypokalemia Prolonged AR interval Hematoma Caregiver burden ; trial fibrillation s/p ablation 02/2016Diarrhea [facility] [place] GI 2019; Kefir [employer] Psyllium husk helpTrigger finger, right ring finger Trigger finger, left ring finger Trigger finger, left middle finger Fracture of rib of right side (08/26/15) Fracture of right shoulder (08/26/15) Unexplained weight loss GI work-up NEG; Mirtaz helpedChest pain Chronic pain Back; L-T Tramadol RX (which was discont 2018); h/o compression fractures Mid back pain compression fx Sleeping difficulty (07/01/15) Improved on Mirtaz Primary osteoarthritis of right knee (08/24/16) Frequent falls (04/05/17) Chronic atrial fibrillation (11/19/15) s/p Ablation 02/2016 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 declined ablation at [facility] [place] Patient's dual-chamber pacemaker is functioning normally with ample generator life remaining. She has had no further PAF episodes noted. Her presenting rhythm is atrial pacing and underlying rhythm is sinus bradycardia. No reprogramming needed. She does not use remote monitoring.Chronic fatigue syndrome Surgical History History of hysterectomy cardioversion (07/20/14) Dr Garcia, CVHcardiac catheterization (11/27/14) 3 vessel disease, occluded, Grafts: mammary artery and 2 venous grafts are all open.Trigger Finger release R 4th digitReplacement of total knee joint (09/14/11) CELESTE LEFT TKAPacemaker (09/05/15) [facility] [place], [employer] DUAL CHAMBERExtraction of cataract (11/11/15) L cataract Jayme R cataract-Dr Briceño for A Fib (03/10/16) Catheter ablatioin for A Flutter and catheter ablatiion for A Fib; [facility] [place] Dr David Davis/O surgical procedure a. left cataract surgery b. Duane fundoplication c. carpal tunnel syndrome d. bilateral tubal ligation e. hysterectomy f. arthroscopy left knee 09/2011 g. s/p breast reduction Social History/Home Situation: Patient lives in a private home with family support. She has a single LIZ the home. Normally ambulates independently, using a cane on occasion. Equipment Owned/DME: FWW, cane Subjective: Complained of pain in her low back, Nurse Deyanira managing. Has had some chronic issues with dry eyes which daughter Nahomy states patient has been using drops for. Drifts often to the R. Daughter Nahomy feels that patient's walking may be a little bit less stable than it had been. Okay with use of walker by patient. Objective: General Observation: Resting in chair with eyes closed. Arnaud Corea and son-in-law Tee present during evaluation. Mental Status: A&Ox3 Pain: As above ROM: Right Upper Extremity: Shoulder Flexion WFL. Shoulder abduction WFL. Elbow flexion WFL. Wrist flexion WFL. Functional opening and closing of hand WFL. Left Upper Extremity: Shoulder Flexion WFL. Shoulder abduction WFL. Elbow flexion WFL. Wrist flexion WFL. Functional opening and closing of hand WFL. Right Lower Extremity: Hip flexion WFL. Hip abduction WFL. Knee flexion WFL. Ankle dorsiflexion to neutral only. Ankle plantarflexion WFL. Left Lower Extremity: Hip flexion WFL. Hip abduction WFL. Knee flexion WFL. Ankle dorsiflexion to neutral only. Ankle plantarflexion WFL. Strength: Right Upper Extremity: Shoulder flexors 4-/5. Shoulder abductors 4-/5. Elbow flexors 4-/5. Elbow extensors 4-/5. Glassine Machine Tender strong. Left Upper Extremity: Shoulder flexors 4-/5. Shoulder abductors 4-/5. Elbow flexors 4-/5. Elbow extensors 4-/5. Glassine Machine Tender strong. Right Lower Extremity: Hip flexors 3+/5. Hip abductors 3+/5. Knee flexors 4-/5. Knee extensors 4-/5. Ankle dorsiflexors 3-/5. Ankle plantarflexors 4-/5. Left Lower Extremity: Hip flexors 3+/5. Hip abductors 3+/5. Knee flexors 4-/5. Knee extensors 4-/5. Ankle dorsiflexors 3-/5. Ankle plantarflexors 4-/5. Bed Mobility/Transfers: sit-stand: stand by assist with FWW stand-sit: stand by assist with FWW Gait: Ambulates 200 feet + 250 feet' with CGA, with FWW. Attempted walking without device but patient verbalized feeling unstable and shaky. No LOB. No SOB. Needed minimal cueing to open eyes for safety. Juanita decreased. Adjusted walker to preferable height. Balance: Static Sitting: Good Dynamic Sitting: Good Static Standing: Fair Dynamic Standing: Fair 4-Position Balance Test: Small VERENA: 10 seconds Partial Tandem: <10 seconds Full Tandem: 0 seconds Single Leg Stance: 0 seconds Special Tests: Mobility Limitations Standardized Measure [facility] 6 clicks Basic Mobility Inpatient Short Form: Raw Score: 11 Standardized Score: 11% impairment Informed Consent/Education: Patient instructed in purpose of PT consult and plan of care. Assessment: Patient is an 83 year old female referred to physical therapy services for safety consultation prior to discharge. She requires use of FWW and stand by assist of another for safety at home. She is agreeable to having PT come in for work on balance and strengthening. Functional impairment level findings: 1. Decreased balance 2. History of falls 3. Low back pain Impairments are contributing to the following functional limitations: 1. high risk for future falls 2. gait impairment [place] [address] moderate complexity based on the following: History: Patient admitted 03/01/24 after presenting to ED as patient was found down at home with downtime duration unknown as patient lives alone. Patient wa admitted for management of of drug overdone. CT scan revealed high-grade steno sis of R ICA. Examination: functional limitations as noted above Presentation: Evolving Decision Makin moderate complexity Plan of Care/Treatment Plan: D/C home with family support. Requires use of FWW and SBA from family for ambulation. DISCHARGE RECOMMENDATIONS: Home with HH PT and use of FWW TREATMENT CODE/TIME: 19777 x 20 minutes for 1 unit, 93492 x 27 for 2 units ( (13:35-14:17). Thank you for the opportunity to participate in the care of this patient. Erlinda Myers PT, DPT, CLT [facility] [place], [place]
--- NOTE | 2024-03-02 14:11 | PHA.REVIEW2 ---
Pharmacy Admission Review Admission Clinical Review Admission Pharmacy Review: Drug overdose (Acute) nifedipine Allergy (Mild, Verified 01/31/24 11:37) Hives amiodarone Adverse Reaction (Severe, Verified 01/31/24 11:37) tremor oxycodone Adverse Reaction (Severe, Verified 01/31/24 11:37) heavy sedation valacyclovir Adverse Reaction (Severe, Verified 01/31/24 11:37) Other (See Comment) amoxicillin Adverse Reaction (Intermediate, Verified 01/31/24 11:37) sore burning mouth Anesthetics - Amide Type - Select A (Anesthetics - Amide Type) Adverse Reaction (Intermediate, Verified 01/31/24 11:37) anxious diazepam Adverse Reaction (Intermediate, Verified 01/31/24 11:37) Agitation indomethacin Adverse Reaction (Intermediate, Verified 01/31/24 11:37) headache, flush metformin Adverse Reaction (Intermediate, Verified 01/31/24 11:37) Diarrhea Resuscitation Status DNR/DNI Height 5 ft Weight 56.926 kg Comments Comments/Follow Ups: Per morning meeting, patient still confused and not at baseline Pharmacy Admission Review Renal Dosing Renal Dosing: BUN 13 mg/dL (7-18) 03/01/24 16:32 Creatinine 0.8 mg/dL (0.55-1.02) 03/01/24 16:32 Medications needing adjustments: Reviewed (CrCl 34.88 mL/min) List of meds needing interventions: Current medications are okay Anticoagulation Anticoagulation: Hgb 14.4 g/dL (11.2-15.7) 03/01/24 16:05 Hct 42.8 % (36.0-46.0) 03/01/24 16:05 Plt Count 100 10^3/uL (130-400) L 03/01/24 16:05 INR 1.1 (0.9-1.1) 03/01/24 16:05 Creatinine 0.8 mg/dL (0.55-1.02) 03/01/24 16:32 DVT Prophylaxis: Reviewed Medications: Apixaban (2.5mg PO BID) Relevant Labs Relevant Labs: Sodium 137 mmol/L (136-145) 03/01/24 16:32 Potassium 3.4 mmol/L (3.5-5.1) L 03/01/24 16:32 Chloride 100 mmol/L (98-107) 03/01/24 16:32 Magnesium 1.2 mg/dL (1.8-2.4) L 03/01/24 16:32 Electrolytes, C-Reactive P, ESR: Reviewed (No new labs for today) DM Control DM Control: Glucose 151 mg/dL (74-106) H 03/01/24 16:32 DM Control: Intervened Insulin Dosing, Diabetic Medication: Patient takes metformin at home, order was put in and patient given a dose this morning. But patient received Iohexol yesterday at 1746. Metformin should be held for 48 hours after use of IV contrast dyes. I put order on hold until 03/04 and notified provider. Provider aware and agreed with order being put on hold. Cardiac Review Cardiac Review: Troponin I < 50 ng/L (< or =60) 03/01/24 19:17 Blood Pressure 109/75 1129 Blood Pressure 120/90 0742 Blood Pressure 137/92 0258 BP, HR, EF%: Reviewed (HR 113) QTc Review QTc: Reviewed (493 from 03/01/24) IV to PO Switch IV Medications: Reviewed Home Meds Home Med List reviewed: Reviewed Relevent Home Meds Not ordered & why?: ketoconazole cream, lorazepam (accidental OD), mupirocin ointment, nystatin crean, nitroglycerin (PRN), urea cream, Reclast (yearly injection) Current Meds Current Medication Order Review: Intervened Comments: Added IV admission order set Added 2nd PRN to lidocaine order per pharmacy protocol Added patch removal order per pharmacy protocol Put metformin order on hold (see diabetes section above) Comments Comments/Follow Ups: Per morning meeting, patient still confused and not at baseline
[2024-03-02] MEDS: Lidocaine 5% Patch 1 PATCH TD (14:13)
[2024-03-02] MEDS: Refresh PLUS Eye Drops 0.4ml 1 EACH OU ×2 (14:14→22:51)
--- NOTE | 2024-03-02 15:23 | CMDISCH_ITS ---
Date of service: 03/02/24 Time of Service: 15:23 LACE Index Scoring Tool Questions: Length of Stay (in days): 1 Was the patient admitted via the E.D.?: Yes Comorbidities: Liver or Renal Disease E.D. Visits: 2 Answers: Total Score: 11 Risk of Readmission: High Risk Care Management Discharge Plan Reason for Hospitalization: s/p drug overdose Discharge Plan: Liliana was evaluated by [facility] and a safety plan to home was established. Liliana is discharge home with New [facility] services and a plan to follow up with community providers. Pt is driven via private vehicle with family. Patient/Family Education Needs: Review discharge instructions, limitations, medications and plan to follow up with community providers. Discuss ask me three. Services Needed at Discharge: Home Health Care Services (New [facility] PT) SDOH Health Related Social Needs: Health related social needs details lives independentl y confusion noted by daughter Health related social needs details: lives independently confusion noted by daughter Care Management Referrals: [facility] (CM placed a referral, pt is interested in [facility] )
--- NOTE | 2024-03-02 15:29 | DSE_ITS ---
Date of service: 03/03/24 Time of Service: 10:25 DS: Diagnosis Discharge Diagnosis (1) Drug overdose: Status: Acute Discharge Plan Disposition Patient Disposition: Home W/Home Health Services Condition: Stable Discharge Details Reason For Visit: s/p drug OD Admit Date/Time: 03/01/24 20:50 Admit Provider: Cristofer Bradford Attending Provider: Cristofer Bradford Primary Care Provider: Linn Paulino Hospital Course Hospital Course: This is a 83-year-old female patient past medical history significant for coronary artery disease type 2 diabetes mellitus chronic kidney disease, depression, suicidal ideation who presented to the emergency department after being found unresponsive at her house. She does live alone. She was transported to the emergency department where it was determined that she had overdosed on her medication. She was awake and responding appropriately. Her evaluation and workup did show low blood pressure which did respond to IV hydration. Her antihypertensives were placed on hold. Hospitalist services was contacted and she was admitted under observation status. She remained hemodynam ically stable overnight. She denied suicidal ideation or attempt. States she does not remember what happened or what precipitated her presentation to the hospital. She denies overdosing on her medication in my evaluation. I did obtain a mental health consultation where she has been deemed safe for discharge to home with outpatient follow-up. I also did obtain a physical therapy consultation secondary to her reports of multiple falls. She was safely really ambulated with her walker with recommendations for discharge to home with home health services. She is medically stable and safe for discharge. Her dose of apixaban should be 2.5 mg twice daily due to age and kidney function. The rest of her medications she should resume as directed. She should follow-up with her primary care provider return here sooner for new or worsening symptoms. Discharge discussed with Dr. Tyler Castile Meds and New Rx's Prescriptions: Continued zoledronic mdel-qildycvf-rfiac [Reclast] 5 mg/100 mL piggyback See Rx Instructions IV .once per year Qty: 100 0RF Rx Instructions: 100mL IV .once per year; administer over at least 15 mins mupirocin 2 % ointment 1 applic topical BID Qty: 15 1RF Rx Instructions: May substitute with cream if less expensive; apply thin layer to corners of the mouth until area/lesion resolved nystatin 100,000 unit/gram cream 1 applic TP BID PRN (Reason: robin rash) Qty: 30 0RF Rx Instructions: Apply to affected area on abdomen lorazepam 0.5 mg tablet 0.5 mg PO DAILY MDD 1mg/24h PRN (Reason: acute anxiety) Qty: 30 5RF Rx Instructions: acute anxiety/panic/grief metamucil 1 unit PO DAILY PRN Qty: 30 0RF losartan 50 mg tablet 50 mg PO DAILY Qty: 90 3RF Rx Instructions: Blood pressure--dose decrease 12/22/23 to 50mg daily (rather than BID) for BP goal <140/90 nitroglycerin [Nitrostat] 0.4 mg tablet, sublingual 0.4 mg Sublingual Q5 MIN PRN X3 PRN (Reason: chest pain) Qty: 20 1RF Patient Comments: 06/15/19-unable to verify meds, pt left drug list at home and does not know meds/doses. Rx Instructions: Q5min, x3 max, PRN chest pressure gabapentin 300 mg capsule 300 mg PO BID Qty: 180 3RF Rx Instructions: Dose decrease 04/19/23 ketoconazole 2 % cream 1 applic topical DAILY 90 Days Qty: 60 3RF Rx Instructions: Apply to toenails once daily atorvastatin 40 mg tablet See Rx Instructions .ROUTE .COMPLEX Qty: 90 3RF Dose Instruction: TAKE ONE TABLET BY MOUTH EVERY DAY Rx Instructions: TAKE ONE TABLET BY MOUTH EVERY DAY carvedilol 3.125 mg tablet 3.125 mg PO BID Qty: 180 3RF Rx Instructions: To take with 6.25mg tab for total dose of 9.375 BID for AFib and HTN carvedilol 6.25 mg tablet See Rx Instructions .ROUTE .COMPLEX Qty: 180 3RF Dose Instruction: TAKE 1 TABLET BY MOUTH TWO TIMES A DAY WITH 3.125MG TABLET Rx Instructions: TAKE 1 TABLET BY MOUTH TWO TIMES A DAY WITH 3.125MG TABLET lamotrigine 100 mg tablet See Rx Instructions .ROUTE .COMPLEX Qty: 180 3RF Dose Instruction: TAKE ONE TABLET BY MOUTH TWICE A DAY Rx Instructions: TAKE ONE TABLET BY MOUTH TWICE A DAY citalopram 20 mg tablet See Rx Instructions .ROUTE .COMPLEX Qty: 90 3RF Dose Instruction: TAKE ONE TABLET BY MOUTH EVERY DAY AT BEDTIME Rx Instructions: TAKE ONE TABLET BY MOUTH EVERY DAY AT BEDTIME metformin 500 mg tablet extended release 24 hr See Rx Instructions .ROUTE .COMPLEX Qty: 90 3RF Dose Instruction: TAKE ONE TABLET BY MOUTH EVERY DAY, TAKE WITH LARGEST MEAL OF THE DAY FOR DIABETES Rx Instructions: TAKE ONE TABLET BY MOUTH EVERY DAY, TAKE WITH LARGEST MEAL OF THE DAY FOR DIABETES (DME) Accu-Chek Guide test strips Strip See Rx Instructions .Route Qty: 100 3RF Rx Instructions: to check blood glucose daily. No insulin. DX E11.9 to maintain HbA1c less than 7% (DME) blood-glucose meter [Accu-Chek Guide Glucose Meter] Misc See Rx Instructions .Route Qty: 1 0RF Rx Instructions: to check blood glucose daily. DX: E11.9 to maintain HbA1c less than 7% (DME) lancets [Accu-Chek Softclix Lancets] Misc See Rx Instructions .Route Qty: 100 3RF Rx Instructions: to check blood glucose daily. no insulin. DX:E11.9 to maintain HbA1c less than 7% mirtazapine 7.5 mg tablet 7.5 mg PO QHS Qty: 90 3RF urea 40 % cream See Rx Instructions .ROUTE .COMPLEX Qty: 85 1RF Dose Instruction: APPLY TOPICALLY AT BEDTIME NEEDED FOR SKIN IRRITATION Rx Instructions: APPLY TOPICALLY AT BEDTIME NEEDED FOR SKIN IRRITATION cyclobenzaprine 5 mg tablet See Rx Instructions .ROUTE .COMPLEX Qty: 20 0RF Dose Instruction: TAKE ONE TABLET BY MOUTH AT BEDTIME NEEDED FOR MUSCLE SPASMS Rx Instructions: TAKE ONE TABLET BY MOUTH AT BEDTIME NEEDED FOR MUSCLE SPASMS acetaminophen [Tylenol] 325 MG tablet 650 mg PO Q4H PRN PRNQty: 0 0RF amlodipine 5 mg tablet 5 mg PO DAILY Patient Comments: TAKE ONE TABLET BY MOUTH EVERY DAY AT BEDTIME. DOSE REDUCED 04/19/23 lidocaine 5 % adhesive patch,medicated 1 patch transdermal DAILY PRN Patient Comments: ONE PATCH TOPICALLY NEEDED FOR COMPRESSION FRACTURE PAIN; LEAVE ON MOST PAINFUL AREA FOR 12 HOURS. THEN REMOVE FOR COMPRESSION FRACTURE O omeprazole 20 mg capsule,delayed release(DR/EC) 20 mg PO Q48H Patient Comments: TAKE ONE CAPSULE BY MOUTH EVERY OTHER DAY ON AN EMPTY STOMACH FOR ATYPICAL CHEST PAIN/HEARTBURN Changed Eliquis 5 mg tablet 2.5 mg PO BID Qty: 180 3RF Patient Comments: 06/15/19-unable to verify meds, pt left drug list at home and does not know meds/doses. Rx Instructions: anticoagulation for atrial fibrillation No Action acyclovir 5 % Ointment 15 g topical 5X/DAY Qty: 0 0RF Discharge Instructions Instructions: Accidental Overdose (DC), Depression in adults - Discharge instructions Additional Instructions: resume your home medications as previously directed. no changes are recommended at this time. take medication as directed only. Stand Alone Forms: Nursing Discharge Form Referrals: Linn Paulino NP [Primary Care Provider] - 03/09/24 10:15 am Activity:: Activity as Tolerated Equipment/Supplies:: No Equipment Needed Diet:: As Tolerated Discharge Orders Discharge Orders: Discharge Order (Routine); Ordered 03/03/24 Ordered By: Guillermina Vela DS: Summary Time Spent with Patient providing and/or coordinating discharge services: Greater than 30 minutes Status at Discharge Functional status at discharge: uses cane/walker Overall status at discharge: patient is back to baseline Mental Status: mental status grossly normal Speech and Movement: speech and movement normal Mood: congruent mood Affect: normal affect Quality:SDOH Health Related Social Needs: Health related social needs details lives independentl y confusion noted by daughter Health related social needs details: lives independently confusion noted by daughter Exam Const General: no acute distress Orientation: alert and awake HENMT Head: normal to inspection Ears: external ears normal General nose exam: external nose normal Mouth: moist mucous membranes Eyes Eyelids: eyelids normal Neck Neck: normal visual inspection Resp Effort & Inspection: normal respiratory effort and able to speak in complete sentences Cardio Rate: regular rate Skin General skin exam: no rashes or lesions noted Neuro General: patient alert and patient oriented x3 Extrem General: normal to inspection Psych Mental Status: mental status grossly normal Speech and Movement: speech and movement normal Mood: congruent mood Affect: normal affect DS: Data Vitals/I&O Vitals and I&O: Vital Signs Temperature 36.4 C L 03/02/24 15:21 Temperature Source Temporal Artery Scan 03/02/24 15:21 Pulse 96 H 03/02/24 15:21 Pulse Rhythm Irregular 03/02/24 07:40 Pulse 123 H 03/01/24 20:15 Respiratory Rate 16 03/02/24 15:21 Respiratory Effort Normal 03/02/24 07:40 Respiratory Depth Normal 03/02/24 07:40 Respiratory Pattern Normal 03/02/24 07:40 Blood Pressure 93/54 L 03/02/24 15:21 Blood Pressure Mean 153 03/01/24 20:15 Pulse Oximetry 98 03/02/24 15:21 Oxygen Delivery Method Room Air 03/02/24 15:21 Oxygen Flow Rate 0 03/02/24 15:21 Pain Level 0 03/02/24 15:21 Comment RN notified of vitals 03/02/24 15:21 Intake & Output 03/01/24 03/02/24 03/02/24 23:59 11:59 23:59 Intake Total 2378.667 / 2378.667 Output Total 2500 / 2500 700 / 700 Balance -2490 / -2490 1678.667 / 1678.667 Weight 56.926 kg Intake: IV 1678.667 / 1678.667 Oral 700 / 700 Output: Urine 2500 / 2500 700 / 700 Other: Urine Color Pale Pale Urine Appearance Clear Clear Comment THE ED DID NOT DOCUMENT INSERTION OF HOLLIS. SHE DID not come to [facility], with a hollis in place. Stool Size Moderate Stool Characteristics Soft Brown Voiding Methods Indwelling Catheter Data Completed and Pending Labs on day of discharge: Labs from last 24 hours 03/01/24 03/01/24 03/01/24 19:17 16:32 16:20 WBC RBC Hgb Hct MCV MCH MCHC RDW Plt Count MPV Immature Gran % Neutrophils % Lymphocytes % Monocytes % Eosinophils % Basophils % Nucleated RBC % Absolute Neutrophils Absolute Lymphocytes Absolute Monocytes Absolute Eosinophils Absolute Basophils PT INR Sodium 137 Potassium 3.4 L Chloride 100 Carbon Dioxide 25.0 Anion Gap 12.0 H BUN 13 Creatinine 0.8 Est GFR (CKD-EPI 2020) 73.98 Glucose 151 H Calcium 10.3 H Magnesium 1.2 L Total Bilirubin 1.14 H AST 23 ALT 19 Alkaline Phosphatase 42 L Creatine Kinase 129 Troponin I < 50 < 50 Total Protein 7.8 Albumin 4.2 TSH Urine Color Yellow Urine Clarity Clear Urine pH 7.0 Ur Specific [place] 1.025 Urine Protein >=300 H Urine Ketones 15 H Urine Blood Moderate H Urine Nitrite Negative Urine Bilirubin Negative Urine Urobilinogen 0.2 Ur Leukocyte Esterase Negative Urine RBC 0-2 Urine WBC 0-2 Ur Epithelial Cells Rare Urine Crystals Negative Urine Bacteria Negative Urine Casts Negative Urine Mucus Trace Ur Culture Indicated? No Urine Glucose Negative Salicylates Urine Opiates Screen Negative Urine Methadone Screen Negative Acetaminophen Ur Barbiturates Screen Negative Ur Tricyclics Screen Negative Ur Amphetamines Screen Negative U Benzodiazepines Scrn Negative Urine Cocaine Screen Negative Ur THC Screen Negative Ethyl Alcohol < 3.0 03/01/24 03/01/24 16:05 15:45 WBC 12.09 H RBC 4.37 Hgb 14.4 Hct 42.8 MCV 98 H MCH 33.0 MCHC 33.6 RDW 12.1 Plt Count 100 L MPV Immature Gran % 0.3 Neutrophils % 84.0 Lymphocytes % 8.6 Monocytes % 6.9 Eosinophils % 0.0 Basophils % 0.2 Nucleated RBC % 0.0 Absolute Neutrophils 10.16 H Absolute Lymphocytes 1.04 L Absolute Monocytes 0.83 H Absolute Eosinophils 0.00 Absolute Basophils 0.02 PT 11.4 H INR 1.1 Sodium Cancelled Potassium Cancelled Chloride Cancelled Carbon Dioxide Cancelled Anion Gap Cancelled BUN Cancelled Creatinine Cancelled Est GFR (CKD-EPI 2020) Cancelled Glucose Cancelled Calcium Cancelled Magnesium Cancelled Total Bilirubin Cancelled AST Cancelled ALT Cancelled Alkaline Phosphatase Cancelled Creatine Kinase Cancelled Troponin I Cancelled Total Protein Cancelled Albumin Cancelled TSH Cancelled Urine Color Urine Clarity Urine pH Ur Specific [place] Urine Protein Urine Ketones Urine Blood Urine Nitrite Urine Bilirubin Urine Urobilinogen Ur Leukocyte Esterase Urine RBC Urine WBC Ur Epithelial Cells Urine Crystals Urine Bacteria Urine Casts Urine Mucus Ur Culture Indicated? Urine Glucose Salicylates < 2.8 Urine Opiates Screen Urine Methadone Screen Acetaminophen < 2 Ur Barbiturates Screen Ur Tricyclics Screen Ur Amphetamines Screen U Benzodiazepines Scrn Urine Cocaine Screen Ur THC Screen Ethyl Alcohol Cancelled PFSH All Active Problems (Updated 03/01/24 @ 20:43 by Cristofer Bradford MD) Drug overdose (Acute) Elevated parathyroid hormone (Acute ~2023) Chronic kidney disease, stage III (moderate) (Acute 08/17/11) Coronary artery disease (Chronic) a. inferior NV 1984 b. NV with CABG 1992 Patient is doing well with no chest pain. Continue on current medications. 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 h/o ECT treatment x1 (per Liliana very effective) b. formerly followed by Chauncey Gracia NP c. On multiple medications d. h/o psychiatric hospitalizations for reported bipolar e. h/o suicide attempts Retinal dot hemorrhage of both eyes (Acute ~10/2019) 08/15/2019 Dr Aliza Eng Osteoporosis (Chronic) See 10/2018 CT T11 compression fracture 2017 DEXA osteopenia [id number]: Boniva x2, which she tolerated, thus switching to Reclast (better outcome data) ASCVD (arteriosclerotic cardiovascular disease) (Chronic) cardiac cath Essential tremor (Chronic 04/02/08) R > L, EVAL PRICE 2008; MOWKAILASH [id number]; responds to low dose propranolol Hyperlipidemia (Chronic 08/17/11) Crestor switched to Atorvastatin per ins Generalized atherosclerosis (Chronic 08/17/11) H/O CABG 1993; Cath 11/2015: all three grafts open; EF 60%; JUANPABLO 02/2015 EF 55% Essential hypertension (Chronic 08/17/11) Diabetic neuropathy (Chronic 03/07/15) Dr Robbins Chronic nonalcoholic liver disease (Chronic 08/17/11) 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 of 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 (Chronic) Apixaban for AF GERD (gastroesophageal reflux disease) (Chronic) Severe anxiety with panic (Chronic) L-T BZD Rx Medical History COVID (~06/2023) Gouty arthropathy, unspecified (08/17/11) Shingles Lumbar radiculopathy Hypokalemia Prolonged NV interval Hematoma Caregiver burden ; 02/2022 Atrial fibrillation s/p ablation 02/2016 Diarrhea [facility] GI 2020; Kefir & Psyllium husk help Trigger finger, right ring finger Trigger finger, left ring finger Trigger finger, left middle finger Fracture of rib of right side (08/26/15) Fracture of right shoulder (08/26/15) Unexplained weight loss GI work-up NEG; Mirtaz helped Chest pain Chronic pain Back; L-T Tramadol RX (which was discont 2018); h/o compression fractures Mid back pain compression fx Sleeping difficulty (07/01/15) Improved on Mirtaz Primary osteoarthritis of right knee (08/24/16) Frequent falls (04/05/17) Chronic atrial fibrillation (11/19/15) s/p Ablation 02/2016 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 declined ablation at [facility] Patient's dual-chamber pacemaker is functioning normally with ample generator life remaining. She has had no further PAF episodes noted. Her presenting rhythm is atrial pacing and underlying rhythm is sinus bradycardia. No reprogramming needed. She does not use remote monitoring. Chronic fatigue syndrome Surgical History History of hysterectomy cardioversion (07/20/14) Dr Garcia, [facility] cardiac catheterization (11/27/14) 3 vessel disease, occluded, Grafts: mammary artery and 2 venous grafts are all open. Trigger Finger release R 4th digit Replacement of total knee joint (09/14/11) CELESTE LEFT TKA Pacemaker (09/05/15) [facility], [employer] Extraction of cataract (11/11/15) L cataract [place] R cataract-Dr Hutson Ablation for A Fib (03/10/16) Catheter ablatioin for A Flutter and catheter ablatiion for A Fib; [facility] Dr Reji King H/O surgical procedure a. left cataract surgery b. Duane fundoplication c. carpal tunnel syndrome d. bilateral tubal ligation e. hysterectomy f. arthroscopy left knee 09/2011 g. s/p breast reduction Family History Mother , perf ulcer at age 78. Hip fracture mother from complications of hip fracture Father , stroke at age 80. No problems noted. Sister No problems noted. Social History Smoking/Tobacco Use Status: Never Second Hand Exposure: No Smoking risk assessment performed?: Yes Alcohol Intake: never Drug use: Never Substance use type: does not use Adopted: No (raised by Aunt and Uncle) Caregiver/Support person: Yes (youngest daughter: Jacquelyn Chavira is healthcare agent ph:[phone]) Foster care: No Household members: spouse Housing: house Number of Children: 4 Current gender identity: female What is your relationship status?: Panel score (0-1 are the most socially isolated patients): 1 What type of physical activity do you participate in: additional Details: gardening, playing with dog Shasta/Zoroastrianism: Mormonism Seatbelt use: always Drive intox or ride w/intox 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: No Water heater temp set <120 deg: Yes Working smoke detector in home: Yes Fire extinguisher in home: Yes Carbon monox detector in home: Yes Firearms in home: Yes Do you feel safe at home: Yes Do you feel safe in your relationship?: Yes History History 5 Para Hx # Term Pregnancies 4 Multiple births Hx # Pregnancies Ectopic pregnancies AB induced Hx Number of Living Children AB spontaneous Time Spent with Patient Time Spent with Patient: 45-69 minutes Time was spent: preparing to see the patient(eg.review tests), obtaining and/or reviewing separately otained hiistory, ordering medications,tests, procedures, indepentently interpreting results, counseling the patient and care coordination
--- NOTE | 2024-03-02 15:37 | PDOC.HHF2F_ITS ---
Home Health Referral Home Health Orders Medical diagnosis necessitation home health referral: frequent falls, accidental overdose Physical Therapist: Check all that apply Increase strength & endurance for safe mobility at home: Ordered To design/establish home maintenance program: Ordered Fall reduction therapy program for patient with history of frequent falls: Ordered Home safety evaluation and teaching/gait training including stair management (if applicable): Ordered Encounter Date and Reason: I certify that a FTF encounter for this patient was performed on March 02, 2024 and that such encounter was related to the primary reason the patient requires home health services. The encounter was conducted in the following manner: * By me as the certifying physician, DOCTOR OF PODIATRIC MEDICINE, PA or * By an inpatient physician, DOCTOR OF PODIATRIC MEDICINE or PA during an inpatient stay who communicated findings to me, Certification And Authentication I certify that I composed the above information based on my clinical judgment relating to this patient's medical condition and, if applicable, clinical findings communicated to me by the NPP or inpatient physician who performed the FTF encounter. Name of Provider that will be monitoring home health services: Linn Paulino
[2024-03-02] MEDS: Citalopram 20 MG TAB PO (22:47)
[2024-03-02] MEDS: Mirtazapine 15 MG TAB 7.5 MG PO (22:48)
[2024-03-03 05:29] VITALS: BP 119/81; PULSE 103; RESP 12; TEMP 35.5; O2SAT 95
[2024-03-03] MEDS: Carvedilol 6.25 MG TAB PO (09:06)
[2024-03-03] MEDS: Carvedilol 3.125 MG TAB PO (09:06)
[2024-03-03] MEDS: Gabapentin 300 MG CAP PO (09:06)
[2024-03-03] MEDS: Atorvastatin 40 MG TAB PO (09:06)
[2024-03-03] MEDS: lamoTRIgine 100 MG TAB PO (09:06)
[2024-03-03] MEDS: Apixaban 2.5 MG TAB PO (09:07)
[2024-03-03] MEDS: Normal Saline Flush 10 ML SYR IVP (09:25)
--- NOTE | 2024-03-03 10:56 | PGE_ITS ---
Date of Service Date of service: 03/02/24 Time of Service: 15:00 Assessment and Plan Assessment and plan (1) Drug overdose: Status: Acute Assessment and plan: denies intentional overdose or suicidal ideation mental health consultation (2) Ambulatory dysfunction: Status: Acute Assessment and plan: with frequent reported falls at home fall precautions PT consult walker at all times for gait safety and stability (3) Essential hypertension: Status: Chronic Assessment and plan: received lopressor last night with sbp 90's, hold antihypertensives for now, monitor (4) Depression: Status: Chronic Assessment and plan: continue home medication, outpatient follow up Qualifiers: Depression Type: major depressive disorder Major depression recurrence: recurrent Active/Remission status: currently active Major depression episode severity: moderate Qualified Code(s): F33.1 - Major depressive disorder, recurrent, moderate (5) Chronic kidney disease, stage III (moderate): Status: Acute Qualifiers: Chronic kidney disease stage 3 subtype: unspecified whether 3a or 3b Qualified Code(s): N18.30 - Chronic kidney disease, stage 3 unspecified (6) retirement current use of 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: Status: Chronic Assessment and plan: dose decreased to 2.5 mg po BID per renal dosing age. (7) Discharge planning issues: Status: Acute Assessment and plan: planning discharge to home tomorrow if remains medically stable and safe for discharge PT recommends home health PT mental health: outpatient follow up discussed with DR Tyler Subjective Subjective Patient reports: no new complaints, feels better and afebrile; denies shortness of breath Interval history since last seen: denies suicidal ideation or attempt, patient sedate, opens eyes to verbal stimu li but unable to keep them open, denies any pain or c/o. Exam Const General: no acute distress Orientation: awake HENMD Head: normal to inspection Ears: external ears normal General nose exam: external nose normal Mouth: moist mucous membranes Eyes Eyelids: eyelids normal Neck Neck: normal visual inspection Resp Effort & Inspection: normal respiratory effort and able to speak in complete sentences Cardio Rate: regular rate Skin General skin exam: no rashes or lesions noted Neuro General: patient oriented x3 Extrem General: normal to inspection Psych Mental Status: mental status grossly normal Speech and Movement: slowed movement Mood: congruent mood Affect: blunted Attitude: cooperative Thought Process: perseverating (on discharge) Thought Content: suicidality (denies) Insight: limited Judgment: limited Objective Last Vital Signs Temp 35.5 C L 03/03/24 05:29 Pulse 103 H 03/03/24 05:29 Resp 12 03/03/24 05:29 BP 119/81 03/03/24 05:29 Pulse Ox 95 03/03/24 05:29 Time Spent with Patient Time Spent with Patient: 35-49 minutes Time was spent: preparing to see the patient(eg.review tests), obtaining and/or reviewing separately otained hiistory, ordering medications,tests, procedures, referring, communicating with other health career development counselor, indepentently interpreting results, counseling the patient and care coordination
== END 2024-03-03 11:02 | disposition home health service (06) ==
LOC: ER 21:14 → MS 21:45
PROVIDERS: Admitting Provider General Practice; Emergency Provider Emergency Medicine; PCP Nurse Practitioner Adult Health; Visit Provider General Practice
DX: T42.4X1A Poisoning by benzodiazepines, accidental (unintentional), initial encounter (principal); T46.2X1A Poisoning by other antidysrhythmic drugs, accidental (unintentional), initial encounter; R41.0 Disorientation, unspecified; I48.20 Chronic atrial fibrillation, unspecified; R26.2 Difficulty in walking, not elsewhere classified; Z79.01 Long term (current) use of anticoagulants; I12.9 Hypertensive chronic kidney disease with stage 1 through stage 4 chronic kidney disease, or unspecified chronic kidney disease; F33.1 Major depressive disorder, recurrent, moderate; N18.30 Chronic kidney disease, stage 3 unspecified; W19.XXXA Unspecified fall, initial encounter; I25.10 Atherosclerotic heart disease of native coronary artery without angina pectoris; I25.2 Old myocardial infarction; Z95.1 Presence of aortocoronary bypass graft; E11.40 Type 2 diabetes mellitus with diabetic neuropathy, unspecified; I65.21 Occlusion and stenosis of right carotid artery; F41.1 Generalized anxiety disorder; Z95.0 Presence of cardiac pacemaker; Z79.899 Other long term (current) drug therapy; Z91.51 Personal history of suicidal behavior; M81.0 Age-related osteoporosis without current pathological fracture; G25.0 Essential tremor; E78.5 Hyperlipidemia, unspecified; K21.9 Gastro-esophageal reflux disease without esophagitis; K76.89 Other specified diseases of liver; E11.22 Type 2 diabetes mellitus with diabetic chronic kidney disease; I95.9 Hypotension, unspecified; Z79.84 Long term (current) use of oral hypoglycemic drugs
CPT/HCPCS: 00123; 36416; 51702; 70496; 70498; 80053; 80307; 82550; 82962; 93005; 96361; 96365; 96366; 97162; 97530; 99291; 71045; 80320; 80329; 81003; 81015; 83735; 84443; 84484; 85025; 85610; 93010; 99222; 99232; 99239; G0378; J3475; J3480; J3490

== ENCOUNTER 2024-03-30 19:42 | Emergency (ER) | payer MEDICARE, BC, SELFPAY ==
[2024-03-30] VITALS (12 sets, daily range): BP systolic 149–206; BP diastolic 85–94; PULSE 89–102; RESP 9–20; TEMP 37; O2SAT 94–98
--- NOTE | 2024-03-30 20:15 | DI.CT_ITS ---
Exam(s) CT HEAD CERVICAL SPINE WO EXAM: CT HEAD CERVICAL SPINE WO CLINICAL HISTORY: fall, HI, eliquis. TECHNIQUE: Imaging Protocol: Axial computed tomography images with coronal and sagittal reformatted images were created and reviewed COMPARISON: CT CT BRAIN NECK CTA from 03/01/2024 FINDINGS: Head CT Ventricles and Extra axial spaces: Normal in size and morphology for the patient's age. Hemorrhage: None. Cerebral parenchyma: No evidence of mass or acute infarct. Mild white matter changes of small vess el disease. Moderate atrophy. Findings appear stable. Midline shift: None. Brainstem/Cerebellum: Normal. Calvarium: Normal. Visualized Paranasal sinuses/Mastoids: Clear. Soft tissues: Unremarkable. Cervical Spine CT BONES: Vertebral body heights are maintained. Alignment is normal. There is no evidence of acute frac ture. Degenerative disc changes and facet degenerative changes are seen . SOFT TISSUES: No paraspinal hematoma. The airway appears intact. Carotid artery calcifications. No pneumothorax is seen at the lung apices. IMPRESSION: Head CT: No acute abnormality. C-spine CT: Degenerative changes, no acute abnormality. RADIATION DOSE DELIVERED: 1,137.77mGy.cm Total DLP DATA REPOSITORY: All CT scans at this facility are submitted to the National Radiology Data Registry (NRDR) Dose Index Registry (DIR) with the [employer] ([employer]). RADIATION OPTIMIZATION: All CT scans at this facility use at least one of these dose optimization te chniques: automated exposure control; mA and/or kV adjustment per patient size (includes targeted exa ms where dose is matched to clinical indication); or iterative reconstruction.
--- NOTE | 2024-03-30 20:15 | RT.EKG_ITS ---
APPROVED REPORT Exam: Resting ECG Reason for Exam: weakness falls Patient Location: E HR:93 bpm ECG Measurements Heart Rate 93 AXIS AR [id number] P [id number] QRSd 111 QRS 40 QT 351 T 213 QTc 443 Conclusion Atrial flutter 93 no stemi
--- NOTE | 2024-03-30 20:15 | DI.RAD_ITS ---
Exam(s) XR CHEST 2V PA LATERAL EXAM: XR CHEST 2V PA LATERAL CLINICAL HISTORY: weakness, falls TECHNIQUE: 2D digital imaging was performed. Two views. COMPARISON: CR,XR XR PORTABLE CHEST AP from 03/01/2024 FINDINGS: HEART: Enlarged, unchanged. Pacemaker. Aorta: Not dilated. PULMONARY VASCULATURE: mildly prominent. MEDIASTINUM: Unremarkable. LUNGS: Mild fibrotic changes. PLEURAL SPACE: No pleural effusion or pneumothorax. BONE:Unremarkable for age. SOFT TISSUES: Unremarkable. IMPRESSION: Cardiomegaly. No acute abnormality. DATA REPOSITORY: RADIATION DOSE DELIVERED:
[2024-03-30 20:57] LABS: Abs Immature Grans 0.01 10^3/uL (0.0-0.06); Absolute Basophil Count 0.02 10^3/uL (0.0-0.2); Absolute Eosinophil Count 0.13 10^3/uL (0.0-0.7); Absolute Lymphocyte Count 1.57 10^3/uL (1.2-3.4); Absolute Monocyte Count 0.35 10^3/uL (0.1-0.8); Basophils % 0.5 %; Eosinophils % 3.1 %; HCT 34.8 % (36.0-46.0); HGB 11.4 g/dL (11.2-15.7); Immature Grans % 0.2 %; Lymphocytes % 37.6 %; MCH 33.8 pg (27.0-33.0); MCHC 32.8 % (32.0-36.0); MCV 103 fL (80-95); MPV 9.3 fL (8.0-11.0); Monocytes % 8.4 %; Neutrophils % 50.2 %; Platelet Count 102 10^3/uL (130-400); RBC 3.37 10^6/uL (3.93-5.22); RDW 12.7 % (11.7-14.6); WBC 4.18 10^3/uL (4.4-10.8)
[2024-03-30 21:13] LABS: ALT 22 U/L (14-59); AST 20 U/L (15-37); Albumin 3.5 g/dL (3.4-5.0); Alkaline Phosphatase 42 U/L (46-116); Anion Gap 8.3 mmol/L (3-11); BUN 20 mg/dL (7-18); Bilirubin, Total 0.35 mg/dL (0.2-1.0); CO2 26.7 mmol/L (21.0-32.0); CREATININE 1.1 mg/dL (0.55-1.02); Calcium 10.1 mg/dL (8.5-10.1); Chloride 107 mmol/L (98-107); Estimated GFR 50.17 (mL/min/1.73m2); Glucose 178 mg/dL (74-106); Magnesium 1.9 mg/dL (1.8-2.4); Potassium 3.8 mmol/L (3.5-5.1); Sodium 142 mmol/L (136-145); Total Protein 6.8 g/dL (6.4-8.2)
[2024-03-30 21:46] LABS: Bilirubin Negative (Negative); Blood Negative (Negative); Clarity Clear (Clear); Glucose Negative (Negative); Ketones Negative (Negative); Leukocyte Esterase Small (Negative); Nitrite Negative (Negative); Urobilinogen 0.2 mg/dL (Up to 0.2); pH 5.5 (5-8)
[2024-03-30 21:56] LABS: Bacteria Rare HPF (Negative); C & S Indicated? No; Crystals Negative HPF (Negative); Epithelial Cells Few HPF (Negative); Mucus Negative (Negative); RBC Negative HPF (0-2)
--- NOTE | 2024-03-30 22:07 | DI.VRAD_ITS ---
PROCEDURE INFORMATION: Exam: XR Chest Exam date and time: 03/30/2024 9:23 PM Age: 84 years old Clinical indication: Other: Weakness, falls TECHNIQUE: Imaging protocol: Radiologic exam of the chest. Views: 2 views. COMPARISON: CR XR PORTABLE CHEST AP 03/01/2024 7:48 PM FINDINGS: Tubes, catheters and devices: Dual lead pacemaker in the expected position. Lungs: Emphysema without airspace consolidation, similar to prior. Pleural spaces: No pleural effusion. No pneumothorax. Heart/Mediastinum: CABG. Moderate cardiomegaly with mild central vascular congestion both more pronounced. Bones/joints: Median sternotomy wires. IMPRESSION: 1. Moderate cardiomegaly with mild central vascular congestion both more pronounced. 2. Emphysema without airspace consolidation, similar to prior. Dictated and Authenticated by: Chioma Sharpe MD. Ordering:NARENDRA Magdaleno MD
--- NOTE | 2024-03-30 22:07 | NUR.NOTE ---
Nursing Note: This RN gave report and transfer of care to Anabel Jurado RN at this time
--- NOTE | 2024-03-30 22:19 | DI.VRAD_ITS ---
PROCEDURE INFORMATION: Exam: CT Head Without Contrast Exam date and time: 03/30/2024 9:14 PM Age: 84 years old Clinical indication: Injury or trauma; Blunt trauma (contusions or hematomas); Consciousness not specified; Injury details: Fall, hi, eliquis TECHNIQUE: Imaging protocol: Computed tomography of the head without contrast. COMPARISON: CT BRAIN NECK CTA 03/01/2024 5:41 PM FINDINGS: Brain: Moderate atrophy. No intracranial hemorrhage. No mass. Few scattered foci of decreased attenuation within periventricular/subcortical white matter. No edema. Cerebral ventricles: No hydrocephalus. Paranasal sinuses: No acute sinusitis. Mastoid air cells: No significant effusion. Orbital cavities: Unremarkable as visualized. Bones: No acute fracture. Soft tissues: Unremarkable. Vasculature: Atherosclerotic disease of intracranial arteries. IMPRESSION: 1. No intracranial hemorrhage. 2. Probable chronic microvascular ischemic changes. PROCEDURE INFORMATION: Exam: CT Cervical Spine Without Contrast Exam date and time: 03/30/2024 9:14 PM Age: 84 years old Clinical indication: Injury or trauma; Blunt trauma (contusions or hematomas); Consciousness not specified; Injury details: Fall, hi, eliquis TECHNIQUE: Imaging protocol: Computed tomography of the cervical spine without contrast. COMPARISON: CT CERVICAL SPINE WO 01/19/2024 9:39 PM FINDINGS: Vertebrae: No acute fracture. Normal alignment. Straightening of cervical spine. Mild to moderate degenerative disc disease within mid and lower cervical spine. Lungs: Unremarkable as visualized. Vasculature: Atherosclerotic disease of visualized arteries. Soft tissues: Unremarkable. IMPRESSION: No fracture. Dictated and Authenticated by: Walt Guerrero MD. Ordering:NARENDRA Magdaleno MD
--- NOTE | 2024-03-30 22:50 | ED.GENADUL_ITS ---
Discharge Plan Disposition Patient Disposition: Home Condition: Stable Discharge Details Clinical Impression: Falls frequently Primary Care Provider: Linn Paulino ED Provider: Sharla Her Home Meds and New Rx's Prescriptions: Continued zoledronic [id number] [Reclast] 5 mg/100 mL piggyback See Rx Instructions IV .once per year Qty: 100 0RF Rx Instructions: 100mL IV .once per year; administer over at least 15 mins nystatin 100,000 unit/gram cream 1 applic TP BID PRN (Reason: robin rash) Qty: 30 0RF Rx Instructions: Apply to affected area on abdomen metamucil 1 unit PO DAILY PRN Qty: 30 0RF losartan 50 mg tablet 50 mg PO DAILY Qty: 90 3RF Rx Instructions: Blood pressure--dose decrease 12/22/23 to 50mg daily (rather than BID) for BP goal <140/90 apixaban 2.5 mg tablet 2.5 mg PO BID Qty: 180 3RF Rx Instructions: Dose reduction 03/06/2024 lorazepam 0.5 mg tablet 0.5 mg PO DAILY PRN (Reason: anxiety) Qty: 14 1RF omeprazole 20 mg tablet,delayed release (DR/EC) 20 mg PO .every other day MDD 20mg/24h Qty: 45 3RF Rx Instructions: Take on empty stomach every other day for atypical chest pain/heartburn gabapentin 300 mg capsule 300 mg PO BID Qty: 180 3RF Rx Instructions: Dose decrease 04/19/23 ketoconazole 2 % cream 1 applic topical DAILY 90 Days Qty: 60 3RF Rx Instructions: Apply to toenails once daily atorvastatin 40 mg tablet See Rx Instructions .ROUTE .COMPLEX Qty: 90 3RF Dose Instruction: TAKE ONE TABLET BY MOUTH EVERY DAY Rx Instructions: TAKE ONE TABLET BY MOUTH EVERY DAY carvedilol 3.125 mg tablet 3.125 mg PO BID Qty: 180 3RF Rx Instructions: To take with 6.25mg tab for total dose of 9.375 BID for AFib and HTN carvedilol 6.25 mg tablet See Rx Instructions .ROUTE .COMPLEX Qty: 180 3RF Dose Instruction: TAKE 1 TABLET BY MOUTH TWO TIMES A DAY WITH 3.125MG TABLET Rx Instructions: TAKE 1 TABLET BY MOUTH TWO TIMES A DAY WITH 3.125MG TABLET lamotrigine 100 mg tablet See Rx Instructions .ROUTE .COMPLEX Qty: 180 3RF Dose Instruction: TAKE ONE TABLET BY MOUTH TWICE A DAY Rx Instructions: TAKE ONE TABLET BY MOUTH TWICE A DAY citalopram 20 mg tablet See Rx Instructions .ROUTE .COMPLEX Qty: 90 3RF Dose Instruction: TAKE ONE TABLET BY MOUTH EVERY DAY AT BEDTIME Rx Instructions: TAKE ONE TABLET BY MOUTH EVERY DAY AT BEDTIME metformin 500 mg tablet extended release 24 hr See Rx Instructions .ROUTE .COMPLEX Qty: 90 3RF Dose Instruction: TAKE ONE TABLET BY MOUTH EVERY DAY, TAKE WITH LARGEST MEAL OF THE DAY FOR DIABETES Rx Instructions: TAKE ONE TABLET BY MOUTH EVERY DAY, TAKE WITH LARGEST MEAL OF THE DAY FOR DIABETES (DME) Accu-Chek Guide test strips Strip See Rx Instructions .Route Qty: 100 3RF Rx Instructions: to check blood glucose daily. No insulin. DX E11.9 to maintain HbA1c less than 7% (DME) blood-glucose meter [Accu-Chek Guide Glucose Meter] Misc See Rx Instructions .Route Qty: 1 0RF Rx Instructions: to check blood glucose daily. DX: E11.9 to maintain HbA1c less than 7% (DME) lancets [Accu-Chek Softclix Lancets] Misc See Rx Instructions .Route Qty: 100 3RF Rx Instructions: to check blood glucose daily. no insulin. DX:E11.9 to maintain HbA1c less than 7% mirtazapine 7.5 mg tablet 7.5 mg PO QHS Qty: 90 3RF urea 40 % cream See Rx Instructions .ROUTE .COMPLEX Qty: 85 1RF Dose Instruction: APPLY TOPICALLY AT BEDTIME NEEDED FOR SKIN IRRITATION Rx Instructions: APPLY TOPICALLY AT BEDTIME NEEDED FOR SKIN IRRITATION nitroglycerin [Nitrostat] 0.4 mg tablet, sublingual 0.4 mg Sublingual Q5 MIN PRN X3 PRN (Reason: chest pain) Qty: 20 1RF Patient Comments: 06/15/19-unable to verify meds, pt left drug list at home and does not know meds/doses. Rx Instructions: Q5min, x3 max, PRN chest pressure acetaminophen [Tylenol] 325 MG tablet 650 mg PO Q4H PRN PRNQty: 0 0RF amlodipine 5 mg tablet 5 mg PO DAILY Patient Comments: TAKE ONE TABLET BY MOUTH EVERY DAY AT BEDTIME. DOSE REDUCED 04/19/23 lidocaine 5 % adhesive patch,medicated 1 patch transdermal DAILY PRN Patient Comments: ONE PATCH TOPICALLY NEEDED FOR COMPRESSION FRACTURE PAIN; LEAVE ON MOST PAINFUL AREA FOR 12 HOURS. THEN REMOVE FOR COMPRESSION FRACTURE O acyclovir 5 % Ointment 15 g topical 5X/DAY Qty: 0 0RF Discharge Instructions Instructions: Preventing falls in adults Additional Instructions: There is no significant abnormality on your interrogation of your pacemaker, please review interrogation results with your diabetes trainer Follow-up with your primary care physician tomorrow Use a walker or cane with any ambulation and use caution when going from sitting to standing or bending over Your tests today are reassuring and baseline for you Please return immediately should you have new or worsening complaints Referrals: Linn Paulino NP [Primary Care Provider] - 1 day Discharge Data Discharge Date/Time-TO BE ENTERED AT DEPARTURE: 03/31/24 00:33 HPI General Date/Time Provider Initiated Documentation: 03/30/24 20:03 . HPI Narrative: This 84-year-old female presents with report of falls x 2 in the past 48 hours. She has had several falls over the course of the past several days, she states that she has become progressively more weak in the past 6 months. She is unsure as to how she falls. She does remember falling over and hitting her head. She states she now has a headache. She does not know if she lost her balance. She denies any nausea or vomiting has a mild headache on the left side of her head. She is anticoagulated on Eliquis for history of atrial fibrillation. She also has a pacemaker. She denies chest pain or shortness of breath. She denies any palpitations. Related Data Home Medications ?Medication ?Instructions ?Recorded ?Confirmed acetaminophen 325 mg tablet 650 mg (2 x 325 mg) PO Q4H PRN PRN 01/15/16 03/30/24 (Tylenol) #0 tabs zoledronic acid 5 mg/100 mL in See Rx Instructions IV .once per 06/23/21 03/30/24 mannitol 5 %-water intravenous year #100 mL piggybck (Reclast) acyclovir 5 % topical ointment 15 g topical 5X/DAY #0 grams 03/29/23 03/30/24 gabapentin 300 mg capsule 300 mg PO BID #180 caps 04/19/23 03/30/24 ketoconazole 2 % topical cream 1 applic topical DAILY 3 months 05/24/23 03/30/24 #60 grams nystatin 100,000 unit/gram topical 1 applic topical BID PRN robin 07/07/23 03/30/24 cream rash #30 grams carvedilol 6.25 mg tablet See Rx Instructions .Route 07/20/23 03/30/24 .COMPLEX #180 tabs lamotrigine 100 mg tablet See Rx Instructions .Route 08/16/23 03/30/24 .COMPLEX #180 tabs citalopram 20 mg tablet See Rx Instructions .Route 08/23/23 03/30/24 .COMPLEX #90 tabs metformin 500 mg tablet,extended See Rx Instructions .Route 08/26/23 03/30/24 release 24 hr .COMPLEX #90 tabs atorvastatin 40 mg tablet See Rx Instructions .Route 09/15/23 03/30/24 .COMPLEX #90 tabs carvedilol 3.125 mg tablet 3.125 mg PO BID #180 tabs 09/15/23 03/30/24 blood sugar diagnostic (Accu-Chek #100 ea 10/04/23 03/30/24 Guide test strips) blood-glucose meter (Accu-Chek #1 ea 10/04/23 03/30/24 Guide Glucose Meter) lancets (Accu-Chek Softclix #100 ea 10/04/23 03/30/24 Lancets) mirtazapine 7.5 mg tablet 7.5 mg PO QHS #90 tabs 10/26/23 03/30/24 urea 40 % topical cream See Rx Instructions .Route 11/18/23 03/30/24 .COMPLEX #85 grams metamucil 1 unit PO DAILY PRN #30 tabs 11/22/23 03/30/24 losartan 50 mg tablet 50 mg PO DAILY #90 tabs 12/22/23 03/30/24 amlodipine 5 mg tablet 5 mg PO DAILY 03/01/24 03/30/24 lidocaine 5 % topical patch 1 patch transdermal DAILY PRN 03/01/24 03/30/24 apixaban 2.5 mg tablet 2.5 mg PO BID #180 tabs 03/06/24 03/30/24 lorazepam 0.5 mg tablet 0.5 mg PO DAILY PRN anxiety #14 03/06/24 03/30/24 tabs omeprazole 20 mg tablet,delayed 20 mg PO .every other day #45 tabs 03/06/24 release nitroglycerin 0.4 mg sublingual 0.4 mg sublingual Q5 MIN PRN X3 03/14/24 03/30/24 tablet (Nitrostat) PRN chest pain #20 tabs Previous Rx's ?Medication ?Instructions ?Recorded acetaminophen 325 mg tablet 650 mg (2 x 325 mg) PO Q4H PRN PRN 01/15/16 (Tylenol) #0 tabs zoledronic acid 5 mg/100 mL in See Rx Instructions IV .once per 06/23/21 mannitol 5 %-water intravenous year #100 mL piggybck (Reclast) acyclovir 5 % topical ointment 15 g topical 5X/DAY #0 grams 03/29/23 gabapentin 300 mg capsule 300 mg PO BID #180 caps 04/19/23 ketoconazole 2 % topical cream 1 applic topical DAILY 3 months 05/24/23 #60 grams nystatin 100,000 unit/gram topical 1 applic topical BID PRN robin 07/07/23 cream rash #30 grams carvedilol 6.25 mg tablet See Rx Instructions .Route 07/20/23 .COMPLEX #180 tabs lamotrigine 100 mg tablet See Rx Instructions .Route 08/16/23 .COMPLEX #180 tabs citalopram 20 mg tablet See Rx Instructions .Route 08/23/23 .COMPLEX #90 tabs metformin 500 mg tablet,extended See Rx Instructions .Route 08/26/23 release 24 hr .COMPLEX #90 tabs atorvastatin 40 mg tablet See Rx Instructions .Route 09/15/23 .COMPLEX #90 tabs carvedilol 3.125 mg tablet 3.125 mg PO BID #180 tabs 09/15/23 blood sugar diagnostic (Accu-Chek #100 ea 10/04/23 Guide test strips) blood-glucose meter (Accu-Chek #1 ea 10/04/23 Guide Glucose Meter) lancets (Accu-Chek Softclix #100 ea 10/04/23 Lancets) mirtazapine 7.5 mg tablet 7.5 mg PO QHS #90 tabs 10/26/23 urea 40 % topical cream See Rx Instructions .Route 11/18/23 .COMPLEX #85 grams metamucil 1 unit PO DAILY PRN #30 tabs 11/22/23 losartan 50 mg tablet 50 mg PO DAILY #90 tabs 12/22/23 apixaban 2.5 mg tablet 2.5 mg PO BID #180 tabs 03/06/24 lorazepam 0.5 mg tablet 0.5 mg PO DAILY PRN anxiety #14 03/06/24 tabs omeprazole 20 mg tablet,delayed 20 mg PO .every other day #45 tabs 03/06/24 release nitroglycerin 0.4 mg sublingual 0.4 mg sublingual Q5 MIN PRN X3 03/14/24 tablet (Nitrostat) PRN chest pain #20 tabs Allergies Allergy/AdvReac Type Severity Reaction Status Date / Time nifedipine Allergy Mild Hives Verified 03/30/24 19:50 amiodarone AdvReac Severe tremor Verified 03/30/24 19:50 oxycodone AdvReac Severe heavy Verified 03/30/24 19:50 sedation valacyclovir AdvReac Severe Other (See Verified 03/30/24 19:50 Comment) amoxicillin AdvReac Intermediate sore Verified 03/30/24 19:50 burning mouth Anesthetics - Amide Type - AdvReac Intermediate anxious Verified 03/30/24 19:50 Select A (Anesthetics - Amide Type) diazepam AdvReac Intermediate Agitation Verified 03/30/24 19:50 indomethacin AdvReac Intermediate headache, Verified 03/30/24 19:50 flush metformin AdvReac Intermediate Diarrhea Verified 03/30/24 19:50 General Stated Complaint: Fall/Non TraumaCriteria ANASTACIA: 3 Exam Narrative Exam Narrative: 84-year-old female alert and oriented, no acute distress, no visible evidence of trauma, tenderness to left parietal region, no hemotympanum, pupils equal round reactive to light and accommodation, no cervical spine tenderness, no chest wall tenderness, lungs clear to auscultation, rate controlled irregularly irregular rhythm, no murmur, no abdominal tenderness, no visible signs of trauma, alert and oriented x 4, ambulatory steady gait, distal pulses intact, negative [id number], negative heel rock, negative pronator drift Course Vital Signs Vital signs: Vital Signs Temperature 37.0 C 03/30/24 19:43 Pulse 99 H 03/30/24 19:43 Respiratory Rate 20 03/30/24 19:43 Blood Pressure 160/91 H 03/30/24 19:43 Pulse Oximetry 94 03/30/24 19:43 Temperature 37.0 C 03/30/24 19:43 Pulse 98 H 03/30/24 20:53 Pulse 93 H 03/30/24 20:53 Respiratory Rate 18 03/30/24 20:53 Respiratory Effort Normal, Non-Labored 03/30/24 20:04 Blood Pressure 158/85 H 03/30/24 20:53 Blood Pressure Mean 110 03/30/24 20:53 Pulse Oximetry 98 03/30/24 20:53 Pain Level 4 03/30/24 20:04 Lab/Test Results Lab/Test Results: Laboratory Tests Range/Units 03/30/24 03/30/24 20:49 21:00 WBC (4.4-10.8) 10^3/uL 4.18 L RBC (3.93-5.22) 10^6/uL 3.37 L Hgb (11.2-15.7) g/dL 11.4 Hct (36.0-46.0) % 34.8 L MCV (80-95) fL 103 H MCH (27.0-33.0) pg 33.8 H MCHC (32.0-36.0) % 32.8 RDW (11.7-14.6) % 12.7 Plt Count (130-400) 10^3/uL 102 L MPV (8.0-11.0) fL 9.3 Immature Gran % % 0.2 Neutrophils % % 50.2 Lymphocytes % % 37.6 Monocytes % % 8.4 Eosinophils % % 3.1 Basophils % % 0.5 Nucleated RBC % (0.0-0.3) % 0.0 Absolute Neutrophils (1.2-6.7) 10^3/uL 2.10 Absolute Lymphocytes (1.2-3.4) 10^3/uL 1.57 Absolute Monocytes (0.1-0.8) 10^3/uL 0.35 Absolute Eosinophils (0.0-0.7) 10^3/uL 0.13 Absolute Basophils (0.0-0.2) 10^3/uL 0.02 Sodium (136-145) mmol/L 142 Potassium (3.5-5.1) mmol/L 3.8 Chloride (98-107) mmol/L 107 Carbon Dioxide (21.0-32.0) mmol/L 26.7 Anion Gap (3-11) mmol/L 8.3 BUN (7-18) mg/dL 20 H Creatinine (0.55-1.02) mg/dL 1.1 H Est GFR (CKD-EPI 2020) (mL/min/1.73m2) 50.17 Glucose (74-106) mg/dL 178 H Calcium (8.5-10.1) mg/dL 10.1 Magnesium (1.8-2.4) mg/dL 1.9 Total Bilirubin (0.2-1.0) mg/dL 0.35 AST (15-37) U/L 20 ALT (14-59) U/L 22 Alkaline Phosphatase (46-116) U/L 42 L Total Protein (6.4-8.2) g/dL 6.8 Albumin (3.4-5.0) g/dL 3.5 Urine Color (Yellow) Yellow Urine Clarity (Clear) Clear Urine pH (5-8) 5.5 Ur Specific [place] (1.005-1.025) 1.020 Urine Protein (Neg-Trace) mg/dL Negative Urine Ketones (Negative) mg/dL Negative Urine Blood (Negative) Negative Urine Nitrite (Negative) Negative Urine Bilirubin (Negative) Negative Urine Urobilinogen (Up to 0.2) mg/dL 0.2 Ur Leukocyte Esterase (Negative) Small H Urine RBC (0-2) HPF Negative Urine WBC (0-5) HPF 5-10 Ur Epithelial Cells (Negative) HPF Few Urine Crystals (Negative) HPF Negative Urine Bacteria (Negative) HPF Rare Urine Mucus (Negative) Negative Ur Culture Indicated? No Urine Glucose (Negative) mg/dL Negative Medical Decision Making 84-year-old female presenting status post fall. She was found several falls since July, 2 falls in the past 48 hours. Patient is unsure as to what happ ens prior to these falls but does remember actually falling and hitting her head. Is unclear as to whether or not she lost consciousness or had a syncopal event although she does specifically remember the impact of the fall. Denies any chest pain or shortness of breath. Denies any dizziness. Is anticoagulated on Eliquis for history of atrial fibrillation has a pacemaker creatinine and blood work is within normal range for patient including creatinine 1.1 urinalysis does not show evidence of infection. CT head and cervical spine does not show evidence of acute abnormality chest x-ray reassuring per radiology interpretation and my review of her CT and chest x-ray. Patient is ambulatory with steady gait with walker and orthostatics are negative. Pacemaker was interrogated and patient is in chronic atrial fibrillation, no evidence of ventricular fibrillation or ventricular tachycardia. I see no clear evidence on patient's pacemaker interrogation that would likely contribute to her fall. At this time I think she is stable for discharge home. She has close family support and will likely benefit from close follow-up with PCP and cardiology in the outpatient setting. Return precautions reviewed and patient and daughter expressed understanding Quality:SDOH Health Related Social Needs: Health related social needs details lives independentl y confusion noted by daughter PFSH All Active Problems (Updated 03/30/24 @ 23:47 by EARLE Davis) Falls frequently (Acute) Ambulatory dysfunction (Acute) Drug overdose (Acute) Elevated parathyroid hormone (Acute ~2023) Chronic kidney disease, stage III (moderate) (Acute 08/17/11) Coronary artery disease (Chronic) a. inferior IA 1984 b. IA with CABG 1992 Patient is doing well with no chest pain. Continue on current medications. DM type 2, controlled, with complication (Acute) complications: neuropathy, cardiovascular disease Corns and callosities (Acute) Pain in foot (Acute) Nail dystrophy (Acute) Onychomycosis (Acute) Pain in joint, foot, left (Acute) Chronic toe pain, left foot (Acute) Hypercalcemia (Acute ~05/2023) B12 deficiency (Acute) Mitral regurgitation (Chronic ~2021) ECHO 09/2021 [facility]P prescription benzodiazepine use (Chronic) Atherosclerosis of right carotid artery (Chronic ~2021) Medically managing--not a surgical candidate Subjective memory complaints (Acute ~06/2021) MoCA 25/30; executive difficulty Presence of permanent cardiac pacemaker (Acute ~2015) Dual lead Medtronic pacemaker 09/05/2015; Her presenting rhythm is atrial pacing and underlying rhythm is sinus Generalized anxiety disorder (Acute) Abnormal echocardiogram (Acute ~05/2018) 05/28/2018 ([facility]): 1+/4+ mitral regurg; EF 56% Depression (Chronic) a. h/o ECT treatment x1 (per Liliana very effective) b. formerly followed by Chauncey Gracia NP c. On multiple medications d. h/o psychiatric hospitalizations for reported bipolar e. h/o suicide attempts Retinal dot hemorrhage of both eyes (Acute ~10/2019) 08/15/2019 Dr Aliza Eng Osteoporosis (Chronic) See 10/2018 CT T11 compression fracture 2017 DEXA osteopenia [id number]: Boniva x2, which she tolerated, thus switching to Reclast (better outcome data) ASCVD (arteriosclerotic cardiovascular disease) (Chronic) cardiac cath Essential tremor (Chronic 04/02/08) R > L, EVAL UMASHANKAR 2008; MOWCHUN [id number]; responds to low dose propranolol Hyperlipidemia (Chronic 08/17/11) Crestor switched to Atorvastatin per ins Generalized atherosclerosis (Chronic 08/17/11) H/O CABG 1993; Cath 11/2015: all three grafts open; EF 60%; JUANPABLO 02/2015 EF 55% Essential hypertension (Chronic 08/17/11) Diabetic neuropathy (Chronic 03/07/15) Dr Robbins Chronic nonalcoholic liver disease (Chronic 08/17/11) USP current use of 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 (Chronic) Apixaban for AF GERD (gastroesophageal reflux disease) (Chronic) Severe anxiety with panic (Chronic) L-T BZD Rx Medical History COVID (~06/2023) Gouty arthropathy, unspecified (08/17/11) Shingles Lumbar radiculopathy Hypokalemia Prolonged HI interval Hematoma Caregiver burden ; 02/2022 Atrial fibrillation s/p ablation 02/2016 Diarrhea [facility] GI 2019; Kefir & Psyllium husk help Trigger finger, right ring finger Trigger finger, left ring finger Trigger finger, left middle finger Fracture of rib of right side (08/26/15) Fracture of right shoulder (08/26/15) Unexplained weight loss GI work-up NEG; Mirtaz helped Chest pain Chronic pain Back; L-T Tramadol RX (which was discont 2018); h/o compression fractures Mid back pain compression fx Sleeping difficulty (07/01/15) Improved on Mirtaz Primary osteoarthritis of right knee (08/24/16) Frequent falls (04/05/17) Chronic atrial fibrillation (11/19/15) s/p Ablation 02/2016 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 declined ablation at [facility] Patient's dual-chamber pacemaker is functioning normally with ample generator life remaining. She has had no further PAF episodes noted. Her presenting rhythm is atrial pacing and underlying rhythm is sinus bradycardia. No reprogramming needed. She does not use remote monitoring. Chronic fatigue syndrome Surgical History History of hysterectomy cardioversion (07/20/14) Dr Garcia, [facility] cardiac catheterization (11/27/14) 3 vessel disease, occluded, Grafts: mammary artery and 2 venous grafts are all open. Trigger Finger release R 4th digit Replacement of total knee joint (09/14/11) CELESTE LEFT TKA Pacemaker (09/05/15) [facility] Extraction of cataract (11/11/15) L cataract Jayme R cataract-Dr Hutson Ablation for A Fib (03/10/16) Catheter ablatioin for A Flutter and catheter ablatiion for A Fib; [facility] Dr David King H/O surgical procedure a. left cataract surgery b. Duane fundoplication c. carpal tunnel syndrome d. bilateral tubal ligation e. hysterectomy f. arthroscopy left knee 09/2011 g. s/p breast reduction Family History Mother , perf ulcer at age 78. Hip fracture mother from complications of hip fracture Father , stroke at age 80. No problems noted. Sister No problems noted. Social History Smoking/Tobacco Use Status: Never Second Hand Exposure: No Smoking risk assessment performed?: Yes Alcohol Intake: never Drug use: Never Substance use type: does not use Adopted: No (raised by Aunt and Uncle) Caregiver/Support person: Yes (youngest daughter: Jacquelyn Chavira is healthcare agent [phone]) Foster care: No Household members: spouse Housing: house Number of Children: 4 Current gender identity: female What is your relationship status?: Panel score (0-1 are the most socially isolated patients): 1 What type of physical activity do you participate in: additional Details: gardening, playing with dog [employer]: [employer] Seatbelt use: always Drive intox or ride w/intox dedicated truck driver: No Water heater temp set <120 deg: Yes Working smoke detector in home: Yes Fire extinguisher in home: Yes Carbon monox detector in home: Yes Firearms in home: Yes Do you feel safe at home: Yes Do you feel safe in your relationship?: Yes History History 5 Para Hx # Term Pregnancies 4 Multiple births Hx # Pregnancies Ectopic pregnancies AB induced Hx Number of Living Children AB spontaneous
== END 2024-03-31 00:33 | disposition home or self-care (01) ==
PROVIDERS: Emergency Provider Physician Assistant; PCP Nurse Practitioner Adult Health
DX: S09.8XXA Other specified injuries of head, initial encounter (principal); I48.91 Unspecified atrial fibrillation; E11.29 Type 2 diabetes mellitus with other diabetic kidney complication; I12.9 Hypertensive chronic kidney disease with stage 1 through stage 4 chronic kidney disease, or unspecified chronic kidney disease; N18.30 Chronic kidney disease, stage 3 unspecified; I25.10 Atherosclerotic heart disease of native coronary artery without angina pectoris; I25.2 Old myocardial infarction; E78.5 Hyperlipidemia, unspecified; Z95.0 Presence of cardiac pacemaker; Z95.1 Presence of aortocoronary bypass graft; Z79.01 Long term (current) use of anticoagulants; Z91.81 History of falling; W01.198A Fall on same level from slipping, tripping and stumbling with subsequent striking against other object, initial encounter; Y93.01 Activity, walking, marching and hiking; Y92.018 Other place in single-family (private) house as the place of occurrence of the external cause
CPT/HCPCS: 80053; 93005; 96374; 99285; 70450; 71046; 72125; 81003; 81015; 83735; 85025; 93010; 99284; J0131

== ENCOUNTER 2024-04-03 12:21 | Outpatient (CLI) | payer MEDICARE, BC, SELFPAY ==
--- NOTE | 2024-04-03 12:15 | DI.RAD_ITS ---
Exam(s) XR THUMB RT EXAM: XR THUMB RT CLINICAL HISTORY: s/p Fall; r/o FX., PAIN RT THUMB, PAIN RT FINGERS, M79.644, W19.XXXA,. TECHNIQUE: 2D digital imaging was performed of the right finger. Three views were obtained. PA/AP, oblique, and lateral views were obtained. COMPARISON: CR XR HAND RT COMPLETE from 08/21/2019 FINDINGS: BONES: No acute fracture is present. No bony destructive lesion is seen. JOINTS: No dislocation present. SOFT TISSUE: Vascular calcification is present. No radiopaque foreign bodies seen in the soft tissue s. IMPRESSION: No evidence of acute fracture or dislocation. DATA REPOSITORY: RADIATION DOSE DELIVERED:
== END 2024-04-03 12:41 ==
LOC: DI 12:21
PROVIDERS: PCP Nurse Practitioner Adult Health; Visit Provider Nurse Practitioner Adult Health
DX: M79.644 Pain in right finger(s) (principal); W19.XXXA Unspecified fall, initial encounter; X58.XXXA Exposure to other specified factors, initial encounter
CPT/HCPCS: 73140

== ENCOUNTER 2024-04-17 02:56 | Outpatient (CLI) | payer MEDICARE, BC, SELFPAY ==
[2024-04-17 11:27] LABS: Hemoglobin A1C 6.2 % (<5.7)
[2024-04-17 11:49] LABS: Anion Gap 7.7 mmol/L (3-11); BUN 14 mg/dL (7-18); CO2 29.3 mmol/L (21.0-32.0); Calcium 9.6 mg/dL (8.5-10.1); Calculated LDL 46 mg/dL (<100); Chloride 109 mmol/L (98-107); Cholesterol 127 mg/dL (<200); Estimated GFR 56.25 (mL/min/1.73m2); Glucose 126 mg/dL (74-106); HDL Cholesterol 64 mg/dL (40-60); Potassium 3.9 mmol/L (3.5-5.1); Sodium 146 mmol/L (136-145); TSH (W/Ref FT4) 2.55 uIU/mL (0.36-3.74); Triglyceride 87 mg/dL (<150); Vitamin B12 303 pg/mL (193-986)
[2024-04-18 13:14] LABS: Albumin 59.3 % (55.8-66.1); Total Protein 6.7 g/dL (6.3-8.2)
== END 2024-04-17 02:57 | disposition home or self-care (01) ==
LOC: LBO 02:56
PROVIDERS: PCP Nurse Practitioner Adult Health; Visit Provider Nurse Practitioner Adult Health
DX: E11.8 Type 2 diabetes mellitus with unspecified complications (principal); I10 Essential (primary) hypertension; E78.5 Hyperlipidemia, unspecified; R79.89 Other specified abnormal findings of blood chemistry; N18.30 Chronic kidney disease, stage 3 unspecified; E53.8 Deficiency of other specified B group vitamins
CPT/HCPCS: 36415; 80048; 80061; 82043; 82570; 82607; 83036; 84165; 84443

== ENCOUNTER 2024-04-19 15:12 | Outpatient (REF) | payer MEDICARE, BC, SELFPAY ==
[2024-04-19 11:51] LABS: COMMENT (LAB VIEW ONLY) 19.12 mg/dL; Microalb ug/mg Crea 46.5 ug/mg Cr
== END 2024-04-19 15:13 | disposition home or self-care (01) ==
LOC: LBN 15:12
PROVIDERS: PCP Nurse Practitioner Adult Health; Visit Provider Nurse Practitioner Adult Health
DX: I10 Essential (primary) hypertension (principal); R79.89 Other specified abnormal findings of blood chemistry; N18.30 Chronic kidney disease, stage 3 unspecified
CPT/HCPCS: 82043; 82570

== ENCOUNTER → 2024-05-18 11:19 | Outpatient (BNVA) | payer MEDICARE, BC, SELFPAY | PROVIDERS: PCP Nurse Practitioner Adult Health; Referring Provider Nurse Practitioner Adult Health; Visit Provider Internal Medicine Cardiovascular Disease | DX: I25.10 Atherosclerotic heart disease of native coronary artery without angina pectoris (principal); Z95.0 Presence of cardiac pacemaker; I48.20 Chronic atrial fibrillation, unspecified | CPT/HCPCS: 99213 ==

== ENCOUNTER 2024-06-05 14:29 | Outpatient (CLI) | payer MEDICARE, BC, SELFPAY ==
--- NOTE | 2024-06-05 10:45 | DI.RAD_ITS ---
Exam(s) XR WRIST RT COMPL NAVICULAR EXAM: XR WRIST RT COMPL NAVICULAR CLINICAL HISTORY: RIGHT THUMB PAIN S/P FALL. TECHNIQUE: 2D digital imaging was performed of the right wrist. Four views were obtained. Scaphoid, PA, lateral and oblique views were obtained. COMPARISON: CR XR THUMB RT from 04/03/2024 FINDINGS: BONES: There is no acute or healing fracture or dislocation present. No bony destructive lesion is s een. JOINTS: The carpal bones are normally aligned. SOFT TISSUE: Extensive atherosclerotic calcification is present. IMPRESSION: No acute or healing fracture or dislocation. DATA REPOSITORY: RADIATION DOSE DELIVERED:
== END 2024-06-05 14:30 | disposition home or self-care (01) ==
LOC: DIORS 14:30
PROVIDERS: PCP Nurse Practitioner Adult Health; Referring Provider Nurse Practitioner Adult Health; Visit Provider Student in an Organized Health Care Education/Training Program
DX: M65.311 Trigger thumb, right thumb
CPT/HCPCS: 99213; 73110

== ENCOUNTER 2024-06-14 10:41 | Day surgery (SDC) | payer MEDICARE, BC, SELFPAY ==
[2024-06-14 11:06] VITALS: BP 117/82; PULSE 91; RESP 16; TEMP 36.3; O2SAT 97
--- NOTE | 2024-06-14 12:35 | W.PM.DSUDISC ---
Date of service: 06/14/24 Discharge Plan Disposition Patient Disposition: Home Condition: Good Discharge Details Reason For Visit: R Trigger thumb release Attending Provider: Rian Archer Primary Care Provider: Linn Paulino Home Meds and New Rx's Prescriptions: Continued zoledronic [id number] [Reclast] 5 mg/100 mL piggyback See Rx Instructions IV .once per year Qty: 100 0RF Rx Instructions: 100mL IV .once per year; administer over at least 15 mins nystatin 100,000 unit/gram cream 1 applic TP BID PRN (Reason: robin rash) Qty: 30 0RF Rx Instructions: Apply to affected area on abdomen metamucil 1 unit PO DAILY PRN Qty: 30 0RF losartan 50 mg tablet 50 mg PO DAILY Qty: 90 3RF Rx Instructions: Blood pressure--dose decrease 12/22/23 to 50mg daily (rather than BID) for BP goal <140/90 apixaban 2.5 mg tablet 2.5 mg PO BID Qty: 180 3RF Rx Instructions: Dose reduction 03/06/2024 omeprazole 20 mg tablet,delayed release (DR/EC) 20 mg PO .every other day MDD 20mg/24h Qty: 45 3RF Rx Instructions: Take on empty stomach every other day for atypical chest pain/heartburn ketoconazole 2 % cream 1 applic topical DAILY 90 Days Qty: 60 3RF Rx Instructions: Apply to toenails once daily atorvastatin 40 mg tablet See Rx Instructions .ROUTE .COMPLEX Qty: 90 3RF Dose Instruction: TAKE ONE TABLET BY MOUTH EVERY DAY Rx Instructions: TAKE ONE TABLET BY MOUTH EVERY DAY carvedilol 3.125 mg tablet 3.125 mg PO BID Qty: 180 3RF Rx Instructions: To take with 6.25mg tab for total dose of 9.375 BID for AFib and HTN gabapentin 300 mg capsule 300 mg PO BID Qty: 180 3RF Rx Instructions: Dose decrease 04/19/23 mirtazapine 15 mg tablet 15 mg PO QHS Qty: 90 0RF Rx Instructions: Dose increase 04/03/24 for mood, appetite, and sleep lorazepam 0.5 mg tablet 0.5 mg PO DAILY PRN (Reason: anxiety) Qty: 28 5RF carvedilol 6.25 mg tablet See Rx Instructions .ROUTE .COMPLEX Qty: 180 3RF Dose Instruction: TAKE 1 TABLET BY MOUTH TWO TIMES A DAY WITH 3.125MG TABLET Rx Instructions: TAKE 1 TABLET BY MOUTH TWO TIMES A DAY WITH 3.125MG TABLET lamotrigine 100 mg tablet See Rx Instructions .ROUTE .COMPLEX Qty: 180 3RF Dose Instruction: TAKE ONE TABLET BY MOUTH TWICE A DAY Rx Instructions: TAKE ONE TABLET BY MOUTH TWICE A DAY citalopram 20 mg tablet See Rx Instructions .ROUTE .COMPLEX Qty: 90 3RF Dose Instruction: TAKE ONE TABLET BY MOUTH EVERY DAY AT BEDTIME Rx Instructions: TAKE ONE TABLET BY MOUTH EVERY DAY AT BEDTIME metformin 500 mg tablet extended release 24 hr See Rx Instructions .ROUTE .COMPLEX Qty: 90 3RF Dose Instruction: TAKE ONE TABLET BY MOUTH EVERY DAY, TAKE WITH LARGEST MEAL OF THE DAY FOR DIABETES Rx Instructions: TAKE ONE TABLET BY MOUTH EVERY DAY, TAKE WITH LARGEST MEAL OF THE DAY FOR DIABETES (DME) Accu-Chek Guide test strips Strip See Rx Instructions .Route Qty: 100 3RF Rx Instructions: to check blood glucose daily. No insulin. DX E11.9 to maintain HbA1c less than 7% (DME) blood-glucose meter [Accu-Chek Guide Glucose Meter] Misc See Rx Instructions .Route Qty: 1 0RF Rx Instructions: to check blood glucose daily. DX: E11.9 to maintain HbA1c less than 7% (DME) lancets [Accu-Chek Softclix Lancets] Misc See Rx Instructions .Route Qty: 100 3RF Rx Instructions: to check blood glucose daily. no insulin. DX:E11.9 to maintain HbA1c less than 7% urea 40 % cream See Rx Instructions .ROUTE .COMPLEX Qty: 85 1RF Dose Instruction: APPLY TOPICALLY AT BEDTIME NEEDED FOR SKIN IRRITATION Rx Instructions: APPLY TOPICALLY AT BEDTIME NEEDED FOR SKIN IRRITATION nitroglycerin [Nitrostat] 0.4 mg tablet, sublingual 0.4 mg Sublingual Q5 MIN PRN X3 PRN (Reason: chest pain) Qty: 20 1RF Patient Comments: 06/15/19-unable to verify meds, pt left drug list at home and does not know meds/doses. Rx Instructions: Q5min, x3 max, PRN chest pressure acetaminophen [Tylenol] 325 MG tablet 650 mg PO Q4H PRN PRNQty: 0 0RF amlodipine 5 mg tablet 5 mg PO DAILY Patient Comments: TAKE ONE TABLET BY MOUTH EVERY DAY AT BEDTIME. DOSE REDUCED 04/19/23 lidocaine 5 % adhesive patch,medicated 1 patch transdermal DAILY PRN Patient Comments: ONE PATCH TOPICALLY NEEDED FOR COMPRESSION FRACTURE PAIN; LEAVE ON MOST PAINFUL AREA FOR 12 HOURS. THEN REMOVE FOR COMPRESSION FRACTURE O acyclovir 5 % Ointment 15 g topical 5X/DAY Qty: 0 0RF Discharge Instructions Stand Alone Forms: Gianni Newell Finger Release, Melinda Arnold ([facility]) Referrals: Rian Archer MD [ [facility] STAFF PHYSICIAN] - Activity:: Activity as Tolerated Remove Dressings/Wound Care:: 48 hours Shower/Bathe:: 48 hours Diet:: As Tolerated Discharge Orders Discharge Orders: Discharge Order (Routine); Ordered 06/14/24 Ordered By: Ranjan Bass DS: Diagnosis Discharge Diagnosis (1) Trigger thumb, right thumb: Status: Acute
[2024-06-14] MEDS: Lidocaine 1% Multi-Dose W/EPI 1/100,000 50 ML VIAL (12:46)
[2024-06-14] MEDS: Sodium Bicarbonate 50 MEQ/50 ML VIAL (12:47)
[2024-06-14 13:03] VITALS: BP 148/95; PULSE 91; RESP 16; TEMP 36.3; O2SAT 95
--- NOTE | 2024-06-14 13:24 | W.PM.OP ---
Operative Note Operative Note PRE-OP DIAGNOSIS: Right Trigger Thumb POST-OP DIAGNOSIS: same PROCEDURE: Trigger Finger Release - Right Thumb SURGEON: Rian Archer ANESTHESIA TYPE: Local By Surgeon Refer to Anesthesia Record PATHOLOGY: none sent COMPLICATIONS: None Patient was transported to: same day Patient's condition: stable Indications: I have seen Liliana in clinic for symptoms of a trigger finger. The catching, clicking, locking, and pain limited function. The diagnosis of trigger finger was evident. The symptoms had not responded to conservative measures. I discussed trigger finger release with the patient. I reviewed the risks of the procedure to include, but not limited to, bleeding, infection, pain, stiffness, incomplete release, damage to nerves or vessels, continued catching, recurrence. Despite these risks, the patient elected to proceed. Findings: There was a tightened A1 bandar which was released. The flexor tendons were inspected and the patient was able to move the finger without any catching, clicking, or locking. Procedure Description: Liliana was greeted in the preoperative holding area where the correct side was identified and marked. The consent was reviewed with the patient and signed. All questions were answered. She was taken back to the operating room. The patient was placed into the supine position on the operating room table with the right arm on an arm board. All bony prominences were well padded. No prophylactic antibiotics were administered since this was a clean, elective hand surgical case. The right arm was then prepped with Chloraprep and draped in a standard fashion with stockinette and extremity drape. A timeout to confirm correct identity, side and site, procedure, allergies, anesthesia, and medical concerns was performed. The surgical site was marked as a longitudinal incision directly over the A1 bandar of the involved digit. This was confirmed with palpation during finger flexion. This area, overlying the metacarpal head, was then anesthetized with 1% Lidocaine. The patient tolerated this well and once the anesthetic had setup, the procedure began. A longitudinal incision was made through skin only, approximately 1cm. The deep tissues were dissected bluntly. Once the A1 bandar and flexor tendons were identified the soft tissue including neurovascular structures were retracted medially and laterally. There were no crossing structures over the A1 bandar. The proximal edge of the bandar was identified and the bandar was incised with tenotomy scissors. There was a release of the tendons once this was fully released. The tendons were then removed from the wound and inspected. Excess synovium was resected. The tendons were then returned and the patient was asked to move the finger into deep flexion and back to extension. There was no recreation of the pre-operative symptoms. The hand was then once more inspected for any A0 bandar or area of possible constriction. The wound was then irrigated and the skin was closed with a 4-0 Nylon. This was dressed with gauze and a Conform dressing. The patient tolerated the procedure well and was returned to the Same Day Surgery area in a stable condition suffering no known complication. Date of Procedure: 06/14/24
== END 2024-06-14 13:25 | disposition home or self-care (01) ==
PROVIDERS: PCP Nurse Practitioner Adult Health; Visit Provider Student in an Organized Health Care Education/Training Program
PROC: (CPT 26055; principal; 2024-06-14 14:45)
DX: M65.311 Trigger thumb, right thumb (principal)
CPT/HCPCS: 26055; J2004

== ENCOUNTER → 2024-06-23 11:13 | Outpatient (BNVA) | payer MEDICARE, BC, SELFPAY | PROVIDERS: PCP Nurse Practitioner Adult Health; Referring Provider Nurse Practitioner Adult Health | DX: Z47.89 Encounter for other orthopedic aftercare (principal); R60.0 Localized edema | CPT/HCPCS: 99024 ==

== ENCOUNTER 2024-06-29 01:29 | Outpatient (CLI) | payer MEDICARE, BC, SELFPAY ==
--- NOTE | 2024-06-29 | DI.DEXA_ITS ---
Exam(s) XR DEXA BONE DENSITY W/WO RUPA EXAM: XR DEXA BONE DENSITY W/WO RUPA CLINICAL HISTORY: HYPERPARATHYROIDISM E21.3 TECHNIQUE: COMPARISON: CR XR DEXA BONE DENSITY W/WO RUPA from 02/04/2021 FINDINGS: Lateral Spine Image: Unremarkable. No compression deformities identified. Left hip: Total T-Score: -1.3. This compares to -1.2 on the prior examination. Total Z-Score: 0.9 T- and Z-scores: Findings are consistent with osteopenia. There is no evidence of osteoporosis. Lumbar Spine: Total T-Score: -0.9. This compares to -1.5 on the prior examination. Total Z-Score: 1.9 T- and Z-scores: There is no evidence of osteoporosis. IMPRESSION: No evidence of osteoporosis.
== END 2024-06-29 01:49 ==
LOC: DI 01:29
PROVIDERS: PCP Nurse Practitioner Adult Health; Visit Provider Student in an Organized Health Care Education/Training Program
DX: E21.3 Hyperparathyroidism, unspecified (principal)
CPT/HCPCS: 77080

== ENCOUNTER 2024-07-14 03:04 | Emergency (ER) | payer MEDICARE, BC, SELFPAY ==
[2024-07-14] VITALS (8 sets, daily range): BP systolic 182–203; BP diastolic 102–107; PULSE 68–90; RESP 11–18; TEMP 36.4; O2SAT 92–98
--- NOTE | 2024-07-14 03:00 | RT.EKG_ITS ---
APPROVED REPORT Exam: Resting ECG Reason for Exam: fall/head injury Patient Location: E HR:94 bpm ECG Measurements Heart Rate 94 AXIS ME 156 P 0 QRSd 114 QRS 75 QT 381 T 255 QTc 463 Conclusion Ventricular-paced complexes...other complexes also detected no ST segment or T wave abnormalities to suggest occlusive ID
--- NOTE | 2024-07-14 03:15 | DI.RAD_ITS ---
Exam(s) XR HIP LT AP LAT ONLY EXAM: XR HIP LT AP LAT ONLY CLINICAL HISTORY: fall, left hip TTP. TECHNIQUE: 2D digital imaging was performed. COMPARISON: CR XR DEXA BONE DENSITY W/WO RUPA from 06/29/[address] HEAD CERVICAL SPINE WO from 07/14/2024 FINDINGS: Two views No evidence fracture or dislocation or abnormal soft calcifications. Minimal degenerative changes. No osseous lesions. IMPRESSION: No acute osseous findings in the left hip. DATA REPOSITORY: RADIATION DOSE DELIVERED:
--- NOTE | 2024-07-14 03:15 | DI.RAD_ITS ---
Exam(s) XR PELVIS AP EXAM: XR PELVIS AP CLINICAL HISTORY: fall, left hip ttp. TECHNIQUE: 2D digital imaging was performed. COMPARISON: CR XR PELVIS AP from 03/04/2023 FINDINGS: Single AP view of the pelvis no evidence of acute pelvic nor hip fracture. Bone density is age-appro priate. No osseous lesions IMPRESSION: No fracture evident. DATA REPOSITORY: RADIATION DOSE DELIVERED:
--- NOTE | 2024-07-14 03:15 | DI.CT_ITS ---
Exam(s) CT THORACIC LUMBAR SPINE WO EXAM: CT THORACIC LUMBAR SPINE WO CLINICAL HISTORY: fall, midine tenderness low T and low L spine. TECHNIQUE: Imaging Protocol: Axial computed tomography images with coronal and sagittal reformatted images were created and reviewed. CONTRAST MATERIAL: Intravenous: None COMPARISON: CT LUMBAR SPINE WITHOUT CONTRAST from 01/13/2016 CR,XR XR CHEST 2V PA LATERAL from 01/19/2024 CR XR DEXA BONE DENSITY W/WO RUPA from 06/29/2024 FINDINGS: THORACIC SPINAL COLUMN: There is a mild compression fracture at superior endplate of T11. This may n ot be a new finding and appears to have been evident the lateral image of the DEXA scan 06/29/2024. No other fractures identified. Facet joints unremarkable. LUMBOSACRAL SPINAL COLUMN: No evidence fracture nor significant disc space narrowing. There is mild degenerative anterolisthesis L5 upon S1. Preserved disc height but vacuum phenomena M within the cary tral disc at this level. Also annular bulging evident at multiple levels INCIDENTAL FINDING: Abdominal aortic aneurysm noted, only partially included in the field of view. A lso atrophic right kidney at superior pole level. IMPRESSION: Superior endplate abnormality at T11 which may not be acute as it was evident on DEXA scan of 024. Other findings as above. RADIATION DOSE DELIVERED: 1,820.54mGy.cm Total DLP DATA REPOSITORY: All CT scans at this facility are submitted to the National Radiology Data Registry (NRDR) Dose Index Registry (DIR) with the [employer] ([employer]). RADIATION OPTIMIZATION: All CT scans at this facility use at least one of these dose optimization te chniques: automated exposure control; mA and/or kV adjustment per patient size (includes targeted exa ms where dose is matched to clinical indication); or iterative reconstruction.
--- NOTE | 2024-07-14 03:15 | DI.CT_ITS ---
Exam(s) CT HEAD CERVICAL SPINE WO EXAM: CT HEAD CERVICAL SPINE WO CLINICAL HISTORY: fall on blood thinners. TECHNIQUE: Imaging Protocol: Axial computed tomography images with coronal and sagittal reformatted images were created and reviewed COMPARISON: CT CT HEAD CERVICAL SPINE WO from 03/30/2024 FINDINGS: BRAIN: There are no skull fractures nor fluid in the visualized paranasal sinuses. There is no evidence of intracranial hemorrhage, mass effect, or shift of midline structures. There are no extra-axial fluid collections. The ventricles are not enlarged or shifted and there is no blo od within the ventricular system nor within the basal cisterns. CERVICAL SPINE: There is no evidence of fracture nor listhesis. No significant prevertebral soft tissue swelling. Moderate multilevel disc space narrowing. Also mild-moderate multilevel facet arthropathy. There is fusion across the facet joints at C2-3 levels. There is no significant facet joint malalignment. No significant osseous lesions evident. IMPRESSION: No acute intracranial findings on this noninfused CT scan of the brain. No evidence of cervical spine fracture, malalignment, nor acute compromise of the cervical spinal can al. Degenerative changes. RADIATION DOSE DELIVERED: 1,101.63mGy.cm Total DLP DATA REPOSITORY: All CT scans at this facility are submitted to the National Radiology Data Registry (NRDR) Dose Index Registry (DIR) with the [employer] ([employer]). RADIATION OPTIMIZATION: All CT scans at this facility use at least one of these dose optimization te chniques: automated exposure control; mA and/or kV adjustment per patient size (includes targeted exa ms where dose is matched to clinical indication); or iterative reconstruction.
[2024-07-14 03:39] LABS: Abs Immature Grans 0.01 10^3/uL (0.0-0.06); Absolute Basophil Count 0.03 10^3/uL (0.0-0.2); Absolute Eosinophil Count 0.13 10^3/uL (0.0-0.7); Absolute Lymphocyte Count 1.62 10^3/uL (1.2-3.4); Absolute Monocyte Count 0.42 10^3/uL (0.1-0.8); Absolute Neutrophil Count 2.58 10^3/uL (1.2-6.7); Basophils % 0.6 %; Eosinophils % 2.7 %; HCT 36.8 % (36.0-46.0); Immature Grans % 0.2 %; Lymphocytes % 33.8 %; MCH 33.5 pg (27.0-33.0); MCHC 32.6 % (32.0-36.0); MCV 103 fL (80-95); Monocytes % 8.8 %; Neutrophils % 53.9 %; Platelet Count 111 10^3/uL (130-400); RBC 3.58 10^6/uL (3.93-5.22); RDW 12.2 % (11.7-14.6); RDW-SD 46.2 fL; WBC 4.79 10^3/uL (4.4-10.8)
[2024-07-14 03:56] LABS: ALT 22 U/L (14-59); AST 21 U/L (15-37); Albumin 3.6 g/dL (3.4-5.0); Alkaline Phosphatase 54 U/L (46-116); Anion Gap 6.6 mmol/L (3-11); BUN 18 mg/dL (7-18); Bilirubin, Total 0.31 mg/dL (0.2-1.0); CO2 31.4 mmol/L (21.0-32.0); CREATININE 1.1 mg/dL (0.55-1.02); Chloride 108 mmol/L (98-107); Estimated GFR 50.17 (mL/min/1.73m2); Glucose 156 mg/dL (74-106); Magnesium 1.9 mg/dL (1.8-2.4); Potassium 3.6 mmol/L (3.5-5.1); Sodium 146 mmol/L (136-145); Total Protein 7.1 g/dL (6.4-8.2); Troponin I 16 ng/L (<or=51)
--- NOTE | 2024-07-14 04:28 | DI.VRAD_ITS ---
PROCEDURE INFORMATION: Exam: CT Head Without Contrast Exam date and time: 07/14/2024 3:55 AM Age: 84 years old Clinical indication: Injury or trauma; Blunt trauma (contusions or hematomas); Consciousness not specified; Injury details: Fall on blood thinners TECHNIQUE: Imaging protocol: Computed tomography of the head without contrast. COMPARISON: CT HEAD CERVICAL SPINE WO 03/30/2024 9:14 PM FINDINGS: Brain: Volume loss and chronic small vessel ischemic change. No brain edema. No intracranial hemorrhage. Cerebral ventricles: No ventriculomegaly. Paranasal sinuses: Visualized sinuses are unremarkable. No fluid levels. Mastoid air cells: Unremarkable. Bones: Unremarkable. No acute fracture. Soft tissues: Unremarkable. IMPRESSION: No acute brain findings. PROCEDURE INFORMATION: Exam: CT Cervical Spine Without Contrast Exam date and time: 07/14/2024 3:55 AM Age: 84 years old Clinical indication: Injury or trauma; Blunt trauma (contusions or hematomas); Consciousness not specified; Injury details: Fall on blood thinners TECHNIQUE: Imaging protocol: Computed tomography of the cervical spine without contrast. COMPARISON: CT HEAD CERVICAL SPINE WO 03/30/2024 9:14 PM FINDINGS: Bones: Multilevel disc bulges/herniations. Degenerative change. No fracture. Lungs: Smooth interlobular septal thickening evident at the lung apices compatible with hydrostatic interstitial pulmonary edema/CHF. Pleural spaces: No apical pneumothorax. Soft tissues: Unremarkable. IMPRESSION: 1. Smooth interlobular septal thickening evident at the lung apices compatible with hydrostatic interstitial pulmonary edema/CHF. 2. No fracture. Dictated and Authenticated by: Brett Leach MD. Ordering:GRANT Valladares MD
--- NOTE | 2024-07-14 04:30 | DI.VRAD_ITS ---
PROCEDURE INFORMATION: Exam: CT Thoracic Spine Without Contrast Exam date and time: 07/14/2024 3:57 AM Age: 84 years old Clinical indication: Injury or trauma; Blunt trauma (contusions or hematomas); Injury details: Fall, midine tenderness low t and low L spine TECHNIQUE: Imaging protocol: Computed tomography of the thoracic spine without contrast. COMPARISON: CT THORACIC LUMBAR SPINE WO 01/19/2024 9:39 PM FINDINGS: Tubes, catheters and devices: Cardiac pacer wires are partially visualized. Bones/joints: Schmorl's node defects are noted. Minimal old superior endplate compression fracture deformity of T 11 is demonstrated. Soft tissues: Unremarkable. Vasculature: Arteriosclerotic changes are noted. Lungs: There is mild thickening of the pulmonary septa at the apices. Linear atelectasis and/or fibrosis is seen involving the lower lobes bilaterally. Coronary arteries: Coronary artery calcifications are noted. IMPRESSION: 1. Minimal superior endplate compression fracture deformity of T11. 2. Coronary artery calcifications. 3. Thickening of some of the pulmonary septa can be seen in pulmonary edema, pulmonary congestion, lymphangitic metastases, and other interstitial processes. 4. Linear atelectasis and/or fibrosis, as described above. PROCEDURE INFORMATION: Exam: CT Lumbar Spine Without Contrast Exam date and time: 07/14/2024 3:57 AM Age: 84 years old Clinical indication: Injury or trauma; Blunt trauma (contusions or hematomas); Injury details: Fall, midine tenderness low t and low L spine TECHNIQUE: Imaging protocol: Computed tomography of the lumbar spine without contrast. COMPARISON: CT THORACIC LUMBAR SPINE WO 01/19/2024 9:39 PM FINDINGS: Bones/joints: There is an old superior endplate compression fracture deformity involving L3. Vacuum phenomena is seen involving the intervertebral disc at L5-S1 with mild intervertebral disc space narrowing. There are no acute wedge compression fracture deformities. There are no focal bone lesions. There is normal vertebral body alignment. Kidneys and ureters: Atrophic changes are seen involving the upper aspect of the right kidney. Vasculature: Arteriosclerotic changes are noted. Soft tissues: Unremarkable. IMPRESSION: 1. Old superior endplate compression fracture deformity of L3. 2. Degenerative disc disease at L5-S1. 3. Atrophic changes involving the upper aspect of the right kidney. Dictated and Authenticated by: Deondre Mora MD. Ordering:GRANT Valladares MD
--- NOTE | 2024-07-14 04:35 | DI.VRAD_ITS ---
PROCEDURE INFORMATION: Exam: XR Left Hip Exam date and time: 07/14/2024 3:48 AM Age: 84 years old Clinical indication: Injury or trauma; Fall; Blunt trauma (contusions or hematomas); Left; Hip; Additional info: Fall, lt hip ttp TECHNIQUE: Imaging protocol: Radiologic exam of the left hip. Views: 2 or 3 views hip with pelvis when performed. COMPARISON: CR XR PELVIS AP 07/14/2024 3:47 AM FINDINGS: Tubes, catheters and devices: Surgical clips are superimposed over the medial aspect of the proximal left thigh. Bones/joints: Unremarkable. No acute fracture. Soft tissues: Unremarkable. IMPRESSION: No acute process identified. Dictated and Authenticated by: Deondre Mora MD. Ordering:GRANT Valladares MD
--- NOTE | 2024-07-14 04:36 | ED.GENADUL_ITS ---
Discharge Plan Disposition Patient Disposition: Home Condition: Good Discharge Details Clinical Impression: Fall Primary Care Provider: Linn Paulino ED Provider: Jacquelyn Shipley Home Meds and New Rx's Prescriptions: No Action zoledronic [id number] [Reclast] 5 mg/100 mL piggyback See Rx Instructions IV .once per year Qty: 100 0RF Rx Instructions: 100mL IV .once per year; administer over at least 15 mins nystatin 100,000 unit/gram cream 1 applic TP BID PRN (Reason: robin rash) Qty: 30 0RF Rx Instructions: Apply to affected area on abdomen metamucil 1 unit PO DAILY PRN Qty: 30 0RF losartan 50 mg tablet 50 mg PO DAILY Qty: 90 3RF Rx Instructions: Blood pressure--dose decrease 12/22/23 to 50mg daily (rather than BID) for BP goal <140/90 apixaban 2.5 mg tablet 2.5 mg PO BID Qty: 180 3RF Rx Instructions: Dose reduction 03/06/2024 omeprazole 20 mg tablet,delayed release (DR/EC) 20 mg PO .every other day MDD 20mg/24h Qty: 45 3RF Rx Instructions: Take on empty stomach every other day for atypical chest pain/heartburn ketoconazole 2 % cream 1 applic topical DAILY 90 Days Qty: 60 3RF Rx Instructions: Apply to toenails once daily atorvastatin 40 mg tablet See Rx Instructions .ROUTE .COMPLEX Qty: 90 3RF Dose Instruction: TAKE ONE TABLET BY MOUTH EVERY DAY Rx Instructions: TAKE ONE TABLET BY MOUTH EVERY DAY carvedilol 3.125 mg tablet 3.125 mg PO BID Qty: 180 3RF Rx Instructions: To take with 6.25mg tab for total dose of 9.375 BID for AFib and HTN gabapentin 300 mg capsule 300 mg PO BID Qty: 180 3RF Rx Instructions: Dose decrease 04/19/23 lorazepam 0.5 mg tablet 0.5 mg PO DAILY PRN (Reason: anxiety) Qty: 28 5RF carvedilol 6.25 mg tablet See Rx Instructions .ROUTE .COMPLEX Qty: 180 3RF Dose Instruction: TAKE 1 TABLET BY MOUTH TWO TIMES A DAY WITH 3.125MG TABLET Rx Instructions: TAKE 1 TABLET BY MOUTH TWO TIMES A DAY WITH 3.125MG TABLET lamotrigine 100 mg tablet See Rx Instructions .ROUTE .COMPLEX Qty: 180 3RF Dose Instruction: TAKE ONE TABLET BY MOUTH TWICE A DAY Rx Instructions: TAKE ONE TABLET BY MOUTH TWICE A DAY citalopram 20 mg tablet See Rx Instructions .ROUTE .COMPLEX Qty: 90 3RF Dose Instruction: TAKE ONE TABLET BY MOUTH EVERY DAY AT BEDTIME Rx Instructions: TAKE ONE TABLET BY MOUTH EVERY DAY AT BEDTIME metformin 500 mg tablet extended release 24 hr See Rx Instructions .ROUTE .COMPLEX Qty: 90 3RF Dose Instruction: TAKE ONE TABLET BY MOUTH EVERY DAY, TAKE WITH LARGEST MEAL OF THE DAY FOR DIABETES Rx Instructions: TAKE ONE TABLET BY MOUTH EVERY DAY, TAKE WITH LARGEST MEAL OF THE DAY FOR DIABETES (DME) Accu-Chek Guide test strips Strip See Rx Instructions .Route Qty: 100 3RF Rx Instructions: to check blood glucose daily. No insulin. DX E11.9 to maintain HbA1c less than 7% (DME) blood-glucose meter [Accu-Chek Guide Glucose Meter] Misc See Rx Instructions .Route Qty: 1 0RF Rx Instructions: to check blood glucose daily. DX: E11.9 to maintain HbA1c less than 7% (DME) lancets [Accu-Chek Softclix Lancets] Misc See Rx Instructions .Route Qty: 100 3RF Rx Instructions: to check blood glucose daily. no insulin. DX:E11.9 to maintain HbA1c less than 7% urea 40 % cream See Rx Instructions .ROUTE .COMPLEX Qty: 85 1RF Dose Instruction: APPLY TOPICALLY AT BEDTIME NEEDED FOR SKIN IRRITATION Rx Instructions: APPLY TOPICALLY AT BEDTIME NEEDED FOR SKIN IRRITATION nitroglycerin [Nitrostat] 0.4 mg tablet, sublingual 0.4 mg Sublingual Q5 MIN PRN X3 PRN (Reason: chest pain) Qty: 20 1RF Patient Comments: 06/15/19-unable to verify meds, pt left drug list at home and does not know meds/doses. Rx Instructions: Q5min, x3 max, PRN chest pressure mirtazapine 15 mg tablet See Rx Instructions .ROUTE .COMPLEX Qty: 90 3RF Dose Instruction: TAKE ONE TABLET BY MOUTH EVERY DAY AT BEDTIME Rx Instructions: TAKE ONE TABLET BY MOUTH EVERY DAY AT BEDTIME acetaminophen [Tylenol] 325 MG tablet 650 mg PO Q4H PRN PRNQty: 0 0RF amlodipine 5 mg tablet 5 mg PO DAILY Patient Comments: TAKE ONE TABLET BY MOUTH EVERY DAY AT BEDTIME. DOSE REDUCED 04/19/23 lidocaine 5 % adhesive patch,medicated 1 patch transdermal DAILY PRN Patient Comments: ONE PATCH TOPICALLY NEEDED FOR COMPRESSION FRACTURE PAIN; LEAVE ON MOST PAINFUL AREA FOR 12 HOURS. THEN REMOVE FOR COMPRESSION FRACTURE O acyclovir 5 % Ointment 15 g topical 5X/DAY Qty: 0 0RF Discharge Instructions Instructions: Preventing Falls ED Additional Instructions: Take all of your medications as prescribed. You can take tylenol over the counter for pain; follow the directions on the bottle. Call your primary care doctor in the morning to schedule an appointment to be seen within the next 48 hours to followup on your visit today. At that visit please discuss your blood pressure. Return to the emergency department for new or worsening symptoms including severe headache, vomiting, numbness or weakness, chest pain, shortness of breath, or any other concerns. Referrals: Linn Paulino NP [Primary Care Provider] - [facility] General Mode of arrival: EMS . Date/Time Provider Initiated Documentation: 07/14/24 03:24 . Limitations to Documentation: no limitations . Information obtained by: patient and EMS . HPI Narrative: 84yo F with hx HTN, HLD, CAD, DM, CKD, packmaker in 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 Reports that she lost her balance while doing laundry and fell. Struck the left side of her head & face; did not lose consciousness. No lightheadedness or presyncope, felt entirely normal at time of fall. No chest pain or shortness of breath at any point. No headache, numbness, weakness, or vision changes. Some vertigo at baseline which she reports is unchanged. Has back pain (mostly around her bra line) which is worse than her chronic pain, denies other pain or injury. Otherwise in her usual state of health with no fevers, chills, rash, nausea, vomiting, abdominal pain, extremity pain, or other concerns. Related Data Home Medications ?Medication ?Instructions ?Recorded ?Confirmed acetaminophen 325 mg tablet 650 mg (2 x 325 mg) PO Q4H PRN PRN 01/15/16 06/23/24 (Tylenol) #0 tabs zoledronic acid 5 mg/100 mL in See Rx Instructions IV .once per 06/23/21 06/23/24 mannitol 5 %-water intravenous year #100 mL piggybck (Reclast) acyclovir 5 % topical ointment 15 g topical 5X/DAY #0 grams 03/29/23 06/23/24 ketoconazole 2 % topical cream 1 applic topical DAILY 3 months 05/24/23 06/23/24 #60 grams nystatin 100,000 unit/gram topical 1 applic topical BID PRN robin 07/07/23 06/23/24 cream rash #30 grams carvedilol 6.25 mg tablet See Rx Instructions .Route 07/20/23 06/23/24 .COMPLEX #180 tabs lamotrigine 100 mg tablet See Rx Instructions .Route 08/16/23 06/23/24 .COMPLEX #180 tabs citalopram 20 mg tablet See Rx Instructions .Route 08/23/23 06/23/24 .COMPLEX #90 tabs metformin 500 mg tablet,extended See Rx Instructions .Route 08/26/23 06/23/24 release 24 hr .COMPLEX #90 tabs atorvastatin 40 mg tablet See Rx Instructions .Route 09/15/23 06/23/24 .COMPLEX #90 tabs carvedilol 3.125 mg tablet 3.125 mg PO BID #180 tabs 09/15/23 06/23/24 blood sugar diagnostic (Accu-Chek #100 ea 10/04/23 06/23/24 Guide test strips) blood-glucose meter (Accu-Chek #1 ea 10/04/23 06/23/24 Guide Glucose Meter) lancets (Accu-Chek Softclix #100 ea 10/04/23 06/23/24 Lancets) urea 40 % topical cream See Rx Instructions .Route 11/18/23 06/23/24 .COMPLEX #85 grams metamucil 1 unit PO DAILY PRN #30 tabs 11/22/23 06/23/24 losartan 50 mg tablet 50 mg PO DAILY #90 tabs 12/22/23 06/23/24 amlodipine 5 mg tablet 5 mg PO DAILY 03/01/24 06/23/24 lidocaine 5 % topical patch 1 patch transdermal DAILY PRN 03/01/24 06/23/24 apixaban 2.5 mg tablet 2.5 mg PO BID #180 tabs 03/06/24 06/23/24 omeprazole 20 mg tablet,delayed 20 mg PO .every other day #45 tabs 03/06/24 06/23/24 release nitroglycerin 0.4 mg sublingual 0.4 mg sublingual Q5 MIN PRN X3 03/14/24 06/23/24 tablet (Nitrostat) PRN chest pain #20 tabs gabapentin 300 mg capsule 300 mg PO BID #180 caps 04/24/24 06/23/24 lorazepam 0.5 mg tablet 0.5 mg PO DAILY PRN anxiety #28 05/22/24 06/23/24 tabs mirtazapine 15 mg tablet See Rx Instructions .Route 06/19/24 06/23/24 .COMPLEX #90 tabs Previous Rx's ?Medication ?Instructions ?Recorded acetaminophen 325 mg tablet 650 mg (2 x 325 mg) PO Q4H PRN PRN 01/15/16 (Tylenol) #0 tabs zoledronic acid 5 mg/100 mL in See Rx Instructions IV .once per 06/23/21 mannitol 5 %-water intravenous year #100 mL piggybck (Reclast) acyclovir 5 % topical ointment 15 g topical 5X/DAY #0 grams 03/29/23 ketoconazole 2 % topical cream 1 applic topical DAILY 3 months 05/24/23 #60 grams nystatin 100,000 unit/gram topical 1 applic topical BID PRN robin 07/07/23 cream rash #30 grams carvedilol 6.25 mg tablet See Rx Instructions .Route 07/20/23 .COMPLEX #180 tabs lamotrigine 100 mg tablet See Rx Instructions .Route 08/16/23 .COMPLEX #180 tabs citalopram 20 mg tablet See Rx Instructions .Route 08/23/23 .COMPLEX #90 tabs metformin 500 mg tablet,extended See Rx Instructions .Route 08/26/23 release 24 hr .COMPLEX #90 tabs atorvastatin 40 mg tablet See Rx Instructions .Route 09/15/23 .COMPLEX #90 tabs carvedilol 3.125 mg tablet 3.125 mg PO BID #180 tabs 09/15/23 blood sugar diagnostic (Accu-Chek #100 ea 10/04/23 Guide test strips) blood-glucose meter (Accu-Chek #1 ea 10/04/23 Guide Glucose Meter) lancets (Accu-Chek Softclix #100 ea 10/04/23 Lancets) urea 40 % topical cream See Rx Instructions .Route 11/18/23 .COMPLEX #85 grams metamucil 1 unit PO DAILY PRN #30 tabs 11/22/23 losartan 50 mg tablet 50 mg PO DAILY #90 tabs 12/22/23 apixaban 2.5 mg tablet 2.5 mg PO BID #180 tabs 03/06/24 omeprazole 20 mg tablet,delayed 20 mg PO .every other day #45 tabs 03/06/24 release nitroglycerin 0.4 mg sublingual 0.4 mg sublingual Q5 MIN PRN X3 03/14/24 tablet (Nitrostat) PRN chest pain #20 tabs gabapentin 300 mg capsule 300 mg PO BID #180 caps 04/24/24 lorazepam 0.5 mg tablet 0.5 mg PO DAILY PRN anxiety #28 05/22/24 tabs mirtazapine 15 mg tablet See Rx Instructions .Route 06/19/24 .COMPLEX #90 tabs Allergies Allergy/AdvReac Type Severity Reaction Status Date / Time nifedipine Allergy Mild Hives Verified 06/23/24 11:14 amiodarone AdvReac Severe tremor Verified 06/23/24 11:14 oxycodone AdvReac Severe heavy Verified 06/23/24 11:14 sedation valacyclovir AdvReac Severe confusion Verified 06/23/24 11:14 amoxicillin AdvReac Intermediate sore Verified 06/23/24 11:14 burning mouth Anesthetics - Amide Type - AdvReac Intermediate anxious Verified 06/23/24 11:14 Select A (Anesthetics - Amide Type) diazepam AdvReac Intermediate Agitation Verified 06/23/24 11:14 indomethacin AdvReac Intermediate headache, Verified 06/23/24 11:14 flush metformin AdvReac Intermediate Diarrhea Verified 06/23/24 11:14 General Stated Complaint: Fall/Non TraumaCriteria ANASTACIA: 3 Review of Systems Narrative: see HPI Exam Narrative Exam Narrative: GENERAL: Alert, C-collar in place. SKIN: Warm and well perfused. No rashes, bruises, discolorations or abrasions. HEAD: Atraumatic, normocephalic without edema, discoloration or evidence of trauma. Facial bones without deformities or tenderness. EYES: PERRL. No scleral icterus or conjunctival injection. Extraocular muscles intact without nystagmus or diplopia. No proptosis or enophthalmos. NOSE: No discharge, tenderness, laxity. No nasal septal hematoma. MOUTH: No malocclusion or trismus. Moist mucus membranes without blood. Posterior pharynx without erythema or exudate. NECK: Trachea midline. No discolorations or edema. Neck immobilized in cervical collar. CV: Regular rate and rhythm, Normal s1 and s2. No murmurs, rubs, or gallops. PV: Radial pulses 2+ bilaterally and symmetric. Dorsalis pedis pulses 2+ bilaterally and symmetric. 2+ capillary refill. CHEST: No abrasions or ecchymosis. Chest symmetric with respirations. No chest wall tenderness. No crepitus. No step offs. Lungs are clear to auscultation bilaterally. ABDOMEN: No ecchymosis or abrasions. Soft, nondistended, nontender. BACK: No abrasions, skin openings, or ecchymosis. Diffuse bony tenderness, most pronounced at low T-spine and high-L spine S. No cervical spinal tenderness. PELVIC: Pelvis stable, nontender to lateral compression. MSK: Left hip slightly TTP. No gross deformities or discolorations or lesions. Tolerates full range of motion of extremities without tenderness. NEURO: ? GCS 15.? PERRL.? EOMI.? Fluent speech, no dysarthria. Motor- 5/5 strength symmetric bilateral upper and lower extremities Sensation- ?Intact to light touch and symmetric multiple dermatomes including upper and lower extremities Coordination- No dysmetria on finger to nose Gait/station: ?Defferred CRANIAL NERVES: II: Pupils equal and reactive, III, IV, : EOM intact, no gaze preference or deviation, no nystagmus. V: normal sensation in V1, V2, and V3 segments bilaterally VII: no asymmetry, no nasolabial fold flattening VIII: normal hearing to speech IX, X: normal palatal elevation, no uvular deviation XI: defered, c-collar XII: midline tongue protrusion Course Vital Signs Vital signs: Vital Signs Temperature 36.4 C 07/14/24 03:10 Pulse 90 07/14/24 03:10 Respiratory Rate 16 07/14/24 03:10 Blood Pressure 198/103 H 07/14/24 03:10 Pulse Oximetry 97 07/14/24 03:10 Temperature 36.4 C 07/14/24 03:10 Temperature Source Tympanic 07/14/24 03:10 Pulse 75 07/14/24 04:31 Pulse 82 07/14/24 04:31 Respiratory Rate 13 07/14/24 04:31 Blood Pressure 182/102 H 07/14/24 04:31 Blood Pressure Mean 130 07/14/24 04:31 Blood Pressure Position Supine 07/14/24 03:10 Pulse Oximetry 97 07/14/24 04:31 Oxygen Delivery Method Room Air 07/14/24 03:10 Oxygen Flow Rate 0 07/14/24 03:10 Pain Level 3 07/14/24 03:10 Lab/Test Results Lab/Test Results: Laboratory Tests Range/Units 07/14/24 03:30 WBC (4.4-10.8) 10^3/uL 4.79 RBC (3.93-5.22) 10^6/uL 3.58 L Hgb (11.2-15.7) g/dL 12.0 Hct (36.0-46.0) % 36.8 MCV (80-95) fL 103 H MCH (27.0-33.0) pg 33.5 H MCHC (32.0-36.0) % 32.6 RDW (11.7-14.6) % 12.2 Plt Count (130-400) 10^3/uL 111 L MPV (8.0-11.0) fL 9.0 Immature Gran % % 0.2 Neutrophils % % 53.9 Lymphocytes % % 33.8 Monocytes % % 8.8 Eosinophils % % 2.7 Basophils % % 0.6 Nucleated RBC % (0.0-0.3) % 0.0 Absolute Neutrophils (1.2-6.7) 10^3/uL 2.58 Absolute Lymphocytes (1.2-3.4) 10^3/uL 1.62 Absolute Monocytes (0.1-0.8) 10^3/uL 0.42 Absolute Eosinophils (0.0-0.7) 10^3/uL 0.13 Absolute Basophils (0.0-0.2) 10^3/uL 0.03 Sodium (136-145) mmol/L 146 H Potassium (3.5-5.1) mmol/L 3.6 Chloride (98-107) mmol/L 108 H Carbon Dioxide (21.0-32.0) mmol/L 31.4 Anion Gap (3-11) mmol/L 6.6 BUN (7-18) mg/dL 18 Creatinine (0.55-1.02) mg/dL 1.1 H Est GFR (CKD-EPI 2020) (mL/min/1.73m2) 50.17 Glucose (74-106) mg/dL 156 H Calcium (8.5-10.1) mg/dL 10.0 Magnesium (1.8-2.4) mg/dL 1.9 Total Bilirubin (0.2-1.0) mg/dL 0.31 AST (15-37) U/L 21 ALT (14-59) U/L 22 Alkaline Phosphatase (46-116) U/L 54 Troponin I (<or=51) ng/L 16 Total Protein (6.4-8.2) g/dL 7.1 Albumin (3.4-5.0) g/dL 3.6 Medical Decision Making 84yo F with hx HTN, HLD, CAD, DM, CKD, packmaker in 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 Reports that she lost her balance while doing laundry and fell; struck the left side of her head & face with no LOC. No lightheadedness, chest pain, or shortness of breath at any point. Currently has back pain worse than her baseline, otherwise denies pain or injury. Hypertensive on arrival, vital signs otherwise reassuring. Diffuse midline tenderness to T & L spine on exam. Non-focal neurologic exam. As she is on a blood thinner, will get CT head in addition to CT spine for midline tenderness. -EKG with some paced beats, rate 90's, scattered shallow ST depressions are also present on prior EKG 03/30/24 but appear somewhat more pronounced today. Given this, will send troponin despite lack of symptoms suggestive of OSCAR. -Labs reviewed as below, CBC reassuring with no leukokocytosis or anemia (mild thrombocytopenia), CMP with no actionable abnormalities, Mg normal. Initial troponin 16, 1 hour repeat 19 (delta of 3) -HEART score 6 (H0, EKG 2, A2 RF 2 T0), moderate risk. -CT head & c/t/L spine independently reviewed; no intracranial hemmoraghe or displaced fracture on my view, radiology read below with no acute traumatic findings. Some suggestion of heart failure on CT, pt with no respiratory distress and normal o2 sat, not clinically in HF here. -Plain films independently reviewed, no displaced fracutres on my view, radiology reads below with no acute findings. On reassessment patient remains well appearing, remains hypertensive with otherwise reassuring vital signs. C-collar removed, full pain free ROM wtih flexion, extension, and lateral rotation, no midline tenderness. 5/5 head turn and 5/5 shoulder shrug bilaterally. No neck pain. Low suspicion for ligamentous injury, would not transfer for MRI. Symptoms and labs not suggestive of hypertensive emergency; would not treat this acutely. Will given single dose of toradol here for pain (caution given pt on eliquis) as well at PO lorazapam for lower back spasm (pt takes this at home, does better with lorazapam than with flexeril which tends to make her very groggy). With moderate risk heart score and normal troponin with delta of 3, appropriate to consider outpatient followup (especially given her lack of anginal symptoms or equivalants); pt would like to go home which is reasonable. Discharged home to close followup wt PCP. Discharge instructions and return precautions were reviewed with patient and daughter who verbalized understanding. All questions were answered and they are in full agreement with the plan. Imaging Data Radiologic Study: Imaging: X-Ray and CT Scan Radiologist's impression: Ct head: IMPRESSION: No acute brain findings CT c-spine: IMPRESSION: 1. Smooth interlobular septal thickening evident at the lung apices compatible with hydrostatic interstitial pulmonary edema/CHF. 2. No fracture. CT t spine: IMPRESSION: 1. Minimal old s superior endplate compression fracture deformity of T11. 2. Coronary artery calcifications. 3. Thickening of some of the pulmonary septa can be seen in pulmonary edema, pulmonary congestion, lymphangitic metastases, and other interstitial processes. 4. Linear atelectasis and/or fibrosis, as described above. CT lspine: IMPRESSION: 1. Old superior endplate compression fracture deformity of L3. 2. Degenerative disc disease at L5-S1. 3. Atrophic changes involving the upper aspect of the right kidney XR pelvis: IMPRESSION: 1. No acute process identified. XR hip: IMPRESSION: No acute process identified. Lab Data Lab results reviewed: Yes I reviewed the patient's lab results. Labs: Laboratory Tests Range/Units 07/14/24 07/14/24 03:30 04:30 WBC (4.4-10.8) 10^3/uL 4.79 RBC (3.93-5.22) 10^6/uL 3.58 L Hgb (11.2-15.7) g/dL 12.0 Hct (36.0-46.0) % 36.8 MCV (80-95) fL 103 H MCH (27.0-33.0) pg 33.5 H MCHC (32.0-36.0) % 32.6 RDW (11.7-14.6) % 12.2 Plt Count (130-400) 10^3/uL 111 L MPV (8.0-11.0) fL 9.0 Immature Gran % % 0.2 Neutrophils % % 53.9 Lymphocytes % % 33.8 Monocytes % % 8.8 Eosinophils % % 2.7 Basophils % % 0.6 Nucleated RBC % (0.0-0.3) % 0.0 Absolute Neutrophils (1.2-6.7) 10^3/uL 2.58 Absolute Lymphocytes (1.2-3.4) 10^3/uL 1.62 Absolute Monocytes (0.1-0.8) 10^3/uL 0.42 Absolute Eosinophils (0.0-0.7) 10^3/uL 0.13 Absolute Basophils (0.0-0.2) 10^3/uL 0.03 Sodium (136-145) mmol/L 146 H Potassium (3.5-5.1) mmol/L 3.6 Chloride (98-107) mmol/L 108 H Carbon Dioxide (21.0-32.0) mmol/L 31.4 Anion Gap (3-11) mmol/L 6.6 BUN (7-18) mg/dL 18 Creatinine (0.55-1.02) mg/dL 1.1 H Est GFR (CKD-EPI 2020) (mL/min/1.73m2) 50.17 Glucose (74-106) mg/dL 156 H Calcium (8.5-10.1) mg/dL 10.0 Magnesium (1.8-2.4) mg/dL 1.9 Total Bilirubin (0.2-1.0) mg/dL 0.31 AST (15-37) U/L 21 ALT (14-59) U/L 22 Alkaline Phosphatase (46-116) U/L 54 Troponin I (<or=51) ng/L 16 19 Total Protein (6.4-8.2) g/dL 7.1 Albumin (3.4-5.0) g/dL 3.6 Quality:SDOH Health Related Social Needs: Health related social needs details lives independentl y confusion noted by daughter PFSH All Active Problems (Updated 07/14/24 @ 05:00 by Jacquelyn Shipley MD) Fall (Acute) Hyperparathyroidism (Acute ~06/07/24) [facility] Trigger thumb, right thumb (Acute) S/P Release: 06/14/2024 Ambulatory dysfunction (Acute) Drug overdose (Acute ~02/2024) Elevated parathyroid hormone (Acute ~2023) Chronic kidney disease, stage III (moderate) (Acute 08/17/11) Coronary artery disease (Chronic) a. inferior PR 1984 b. PR with CABG 1992 Patient is doing well with no chest pain. Continue on current medications. DM type 2, controlled, with complication (Acute) complications: neuropathy, cardiovascular disease Corns and callosities (Acute) Pain in foot (Acute) Nail dystrophy (Acute) Onychomycosis (Acute) Pain in joint, foot, left (Acute) Chronic toe pain, left foot (Acute) Hypercalcemia (Acute ~05/2023) B12 deficiency (Acute) Mitral regurgitation (Chronic ~2021) ECHO 09/2021 half-way prescription benzodiazepine use (Chronic) Atherosclerosis of right carotid artery (Chronic ~2021) Medically managing--not a surgical candidate Subjective memory complaints (Acute ~06/2021) MoCA 25/30; executive difficulty Presence of permanent cardiac pacemaker (Acute ~2015) Dual lead Medtronic pacemaker 09/05/2015; Her presenting rhythm is atrial pacing and underlying rhythm is sinus Generalized anxiety disorder (Chronic) Abnormal echocardiogram (Acute ~05/2018) 05/28/2018 ([facility]): 1+/4+ mitral regurg; EF 56% Depression (Chronic) a. h/o ECT treatment x1 (per Liliana very effective) b. formerly followed by Chauncey Gracia NP c. On multiple medications d. h/o psychiatric hospitalizations for reported bipolar e. h/o suicide attempts Retinal dot hemorrhage of both eyes (Acute ~10/2019) 08/15/2019 Dr Aliza Eng Osteoporosis (Chronic) See 10/2018 CT T11 compression fracture 2017 DEXA osteopenia : Boniva x2, which she tolerated, thus switching to Reclast (better outcome data) ASCVD (arteriosclerotic cardiovascular disease) (Chronic) cardiac cath Essential tremor (Chronic 04/02/08) R > L, EVAL UMASHANKAR 2008; MOWCHUN [id number]; responds to low dose propranolol Hyperlipidemia (Chronic 08/17/11) Crestor switched to Atorvastatin per ins Generalized atherosclerosis (Chronic 08/17/11) H/O CABG 1993; Cath 11/2015: all three grafts open; EF 60%; JUANPABLO 02/2015 EF 55% Essential hypertension (Chronic 08/17/11) Diabetic neuropathy (Chronic 03/07/15) Dr Robbins Chronic nonalcoholic liver disease (Chronic 08/17/11) half-way current use of 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 (Chronic) Apixaban for AF GERD (gastroesophageal reflux disease) (Chronic) Severe anxiety with panic (Chronic) L-T BZD Rx Medical History COVID (~06/2023) Gouty arthropathy, unspecified (08/17/11) Shingles Lumbar radiculopathy Hypokalemia Prolonged [place] interval Hematoma Caregiver burden ; 02/2022 Atrial fibrillation s/p ablation 02/2016 Diarrhea [facility] GI 2020; Kefir & Psyllium husk help Trigger finger, right ring finger Trigger finger, left ring finger Trigger finger, left middle finger Fracture of rib of right side (08/26/15) Fracture of right shoulder (08/26/15) Unexplained weight loss GI work-up NEG; Mirtaz helped Chest pain Chronic pain Back; L-T Tramadol RX (which was discont 2018); h/o compression fractures Mid back pain compression fx Sleeping difficulty (07/01/15) Improved on Mirtaz Primary osteoarthritis of right knee (08/24/16) Frequent falls (04/05/17) Chronic atrial fibrillation (11/19/15) s/p Ablation 02/2016 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 declined ablation at [facility] Patient's dual-chamber pacemaker is functioning normally with ample generator life remaining. She has had no further PAF episodes noted. Her presenting rhythm is atrial pacing and underlying rhythm is sinus bradycardia. No reprogramming needed. She does not use remote monitoring. Chronic fatigue syndrome Surgical History History of hysterectomy cardioversion (07/20/14) Dr Garcia, [facility] cardiac catheterization (11/27/14) 3 vessel disease, occluded, Grafts: mammary artery and 2 venous grafts are all open. Trigger Finger release R 4th digit Replacement of total knee joint (09/14/11) CELESTE LEFT TKA Pacemaker (09/05/15) [facility] [place] [facility] Extraction of cataract (11/11/15) L cataract [place] R cataract-Dr Hutson Ablation for A Fib (03/10/16) Catheter ablatioin for A Flutter and catheter ablatiion for A Fib; [facility] [place] David King H/O surgical procedure a. left cataract surgery b. Duane fundoplication c. carpal tunnel syndrome d. bilateral tubal ligation e. hysterectomy f. arthroscopy left knee 09/2011 g. s/p breast reduction Family History Mother , perf ulcer at age 78. Hip fracture mother from complications of hip fracture Father , stroke at age 80. No problems noted. Sister No problems noted. Social History Smoking/Tobacco Use Status: Never Second Hand Exposure: No Smoking risk assessment performed?: Yes Alcohol Intake: never Drug use: Never Substance use type: does not use Adopted: No (raised by Aunt and Uncle) Caregiver/Support person: Yes (youngest daughter: Jacquelyn Chavira is healthcare agent ph:[phone]) Foster care: No Household members: spouse Housing: house Number of Children: 4 Current gender identity: female What is your relationship status?: Panel score (0-1 are the most socially isolated patients): 1 What type of physical activity do you participate in: additional Details: gardening, playing with dog Shasta/Mu-Ism: Jainism Seatbelt use: always Drive intox or ride w/intox class b truck driver: No Water heater temp set <120 deg: Yes Working smoke detector in home: Yes Fire extinguisher in home: Yes Carbon monox detector in home: Yes Firearms in home: Yes Do you feel safe at home: Yes Do you feel safe in your relationship?: Yes History History 5 Para Hx # Term Pregnancies 4 Multiple births Hx # Pregnancies Ectopic pregnancies AB induced Hx Number of Living Children AB spontaneous
--- NOTE | 2024-07-14 04:41 | DI.VRAD_ITS ---
PROCEDURE INFORMATION: Exam: XR Pelvis Exam date and time: 07/14/2024 3:47 AM Age: 84 years old Clinical indication: Injury or trauma; Blunt trauma (contusions or hematomas); Does not apply; Pelvic region; Injury details: Fall, lt hip ttp TECHNIQUE: Imaging protocol: Radiologic exam of the pelvis. Views: 1 or 2 view. COMPARISON: CR XR PELVIS AP 03/04/2023 3:40 PM FINDINGS: Bones/joints: There are no acute fractures, dislocations, or significant focal bone lesions. The hip joint spaces are well preserved. Soft tissues: Surgical clips are superimposed over the medial aspect of the proximal left thigh. IMPRESSION: 1. No acute process identified. Dictated and Authenticated by: Deondre Mora MD. Ordering:GRANT Valladares MD
[2024-07-14 04:57] LABS: Troponin I 19 ng/L (<or=51)
[2024-07-14] MEDS: LORazepam 0.5 MG TAB PO (05:08)
[2024-07-14] MEDS: Ketorolac 15 MG/ML VIAL IVP (05:08)
== END 2024-07-14 05:26 | disposition home or self-care (01) ==
PROVIDERS: Emergency Provider Student in an Organized Health Care Education/Training Program; PCP Nurse Practitioner Adult Health
DX: M54.50 Low back pain, unspecified (principal); E11.22 Type 2 diabetes mellitus with diabetic chronic kidney disease; I12.9 Hypertensive chronic kidney disease with stage 1 through stage 4 chronic kidney disease, or unspecified chronic kidney disease; N18.9 Chronic kidney disease, unspecified; E78.5 Hyperlipidemia, unspecified; I25.10 Atherosclerotic heart disease of native coronary artery without angina pectoris; I48.91 Unspecified atrial fibrillation; Z95.0 Presence of cardiac pacemaker; Z95.1 Presence of aortocoronary bypass graft; Z79.01 Long term (current) use of anticoagulants; Z79.84 Long term (current) use of oral hypoglycemic drugs
CPT/HCPCS: 36415; 80053; 93005; 96374; 99285; 70450; 72125; 72128; 72131; 72170; 73502; 83735; 84484; 85025; 93010; J1885

== ENCOUNTER → 2024-11-15 14:45 | Outpatient (BNVA) | payer MEDICARE, BC, SELFPAY | PROVIDERS: PCP Nurse Practitioner Adult Health; Visit Provider Registered Nurse | DX: Z45.018 Encounter for adjustment and management of other part of cardiac pacemaker (principal); I10 Essential (primary) hypertension; I48.20 Chronic atrial fibrillation, unspecified | CPT/HCPCS: 93280 ==

== ENCOUNTER 2024-11-30 06:21 | Day surgery (SDC) | payer MEDICARE, BC, SELFPAY ==
--- NOTE | 2024-11-30 05:56 | ANES.PREOP_ITS ---
General Info Date of Service Date Performed: 11/30/24 Height: 5 ft 3 in Weight: 61.235 kg Body Mass Index (BMI): 23.9 Surgical Procedure: Operation Date: 11/30/24 07:30 Proposed Procedure Side Surgeon p Cardioversion Bethany Solares MD Meds Allergies and Home Medications Allergies Allergy/AdvReac Type Severity Reaction Status Date / Time nifedipine Allergy Mild Hives Verified 11/30/24 06:35 amiodarone AdvReac Severe tremor Verified 11/30/24 06:35 oxycodone AdvReac Severe heavy Verified 11/30/24 06:35 sedation valacyclovir AdvReac Severe confusion Verified 11/30/24 06:35 amoxicillin AdvReac Intermediate sore Verified 11/30/24 06:35 burning mouth Anesthetics - Amide Type - AdvReac Intermediate anxious Verified 11/30/24 06:35 Select A (Anesthetics - Amide Type) diazepam AdvReac Intermediate Agitation Verified 11/30/24 06:35 indomethacin AdvReac Intermediate headache, Verified 11/30/24 06:35 flush metformin AdvReac Intermediate Diarrhea Verified 11/30/24 06:35 Home Medication ?Medication ?Instructions ?Recorded acetaminophen 325 mg tablet 650 mg (2 x 325 mg) PO Q4H PRN PRN 01/15/16 (Tylenol) #0 tabs zoledronic acid 5 mg/100 mL in See Rx Instructions IV .once per 06/23/21 mannitol 5 %-water intravenous year #100 mL piggybck (Reclast) acyclovir 5 % topical ointment 15 g topical 5X/DAY #0 grams 03/29/23 ketoconazole 2 % topical cream 1 applic topical DAILY 3 months 05/24/23 #60 grams nystatin 100,000 unit/gram topical 1 applic topical BID PRN robin 07/07/23 cream rash #30 grams blood sugar diagnostic (Accu-Chek #100 ea 10/04/23 Guide test strips) blood-glucose meter (Accu-Chek #1 ea 10/04/23 Guide Glucose Meter) lancets (Accu-Chek Softclix #100 ea 10/04/23 Lancets) urea 40 % topical cream See Rx Instructions .Route 11/18/23 .COMPLEX #85 grams metamucil 1 unit PO DAILY PRN #30 tabs 11/22/23 amlodipine 5 mg tablet 5 mg PO DAILY 03/01/24 lidocaine 5 % topical patch 1 patch transdermal DAILY PRN 03/01/24 apixaban 2.5 mg tablet 2.5 mg PO BID #180 tabs 03/06/24 omeprazole 20 mg tablet,delayed 20 mg PO .every other day #45 tabs 03/06/24 release nitroglycerin 0.4 mg sublingual 0.4 mg sublingual Q5 MIN PRN X3 03/14/24 tablet (Nitrostat) PRN chest pain #20 tabs gabapentin 300 mg capsule 300 mg PO BID #180 caps 04/24/24 clotrimazole 1 % topical cream 1 applic topical BID #45 grams 07/17/24 mirtazapine 30 mg tablet 30 mg PO QHS #90 tabs 07/17/24 lamotrigine 100 mg tablet See Rx Instructions .Route 08/16/24 .COMPLEX #180 tabs metformin 500 mg tablet,extended See Rx Instructions .Route 08/16/24 release 24 hr .COMPLEX #90 tabs citalopram 20 mg tablet See Rx Instructions .Route 08/21/24 .COMPLEX #90 tabs atorvastatin 40 mg tablet See Rx Instructions .Route 09/25/24 .COMPLEX #90 tabs cyanocobalamin (vitamin B-12) 1,000 mcg IM QMONTH 10/30/24 1,000 mcg/mL injection solution carvedilol 12.5 mg tablet 12.5 mg PO BID #180 tabs 11/15/24 lorazepam 0.5 mg tablet 0.5 mg PO DAILY PRN anxiety #28 11/27/24 tabs losartan 50 mg tablet 50 mg PO DAILY #90 tabs 11/27/24 Current Visit Medications: Current Medications Generic Name Dose Route Start Last Admin Trade Name Freq PRN Reason Stop Dose Admin Sodium Chloride 1,000 mls @ 30 mls/hr 11/30/24 06:00 Saline 1000ml Bag IV 12/30/24 05:59 INFUSION CINTHYA IV Miscellaneous Supplies 1 each 11/30/24 06:00 Iv Access IV 11/30/24 23:59 DIRECTED CINTHYA Sodium Chloride 0 ml 11/30/24 06:00 Normal Saline Flush 10 Ml Syr IV 11/30/24 23:59 PRN PRN Sodium Chloride 0 ml 11/30/24 06:00 Normal Saline 10 Ml Vial IJ 11/30/24 23:59 DIRECTED PRN Sterile Water 0 ml 11/30/24 06:00 Water,Injection,Sterile 10 Ml Vial IJ 11/30/24 23:59 DIRECTED PRN PFSH Active Problems Active Problems: Problem Status Onset Code Primary hyperparathyroidism Chronic ~2023 E21.0 AAA (abdominal aortic aneurysm) Acute ~07/2024 I71.40 Trigger thumb, right thumb Acute M65.311 Ambulatory dysfunction Acute R26.2 Corns and callosities Acute L84 Pain in foot Acute M79.673 Nail dystrophy Acute L60.3 Onychomycosis Acute B35.1 Pain in joint, foot, left Acute M25.572 Chronic toe pain, left foot Acute M79.675, G89.29 B12 deficiency Acute E53.8 Mitral regurgitation Chronic ~2021 I34.0 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 benzodiazepine use Chronic Z79.899 Atherosclerosis of right carotid artery Chronic ~2021 I65.21 Subjective memory complaints Acute ~06/2021 R41.89 Generalized anxiety disorder Chronic F41.1 Abnormal echocardiogram Acute ~05/2018 R93.1 Retinal dot hemorrhage of both eyes Acute ~10/2019 H35.63 Osteoporosis Chronic M81.0 Essential tremor Chronic 04/02/08 G25.0 Hyperlipidemia Chronic 08/17/11 E78.5 Generalized atherosclerosis Chronic 08/17/11 I70.91 Essential hypertension Chronic 08/17/11 I10 Diabetic neuropathy Chronic 03/07/15 E11.40 DM type 2, controlled, with complication Acute E11.8 Chronic nonalcoholic liver disease Chronic 08/17/11 K76.9 Chronic kidney disease, stage III (moderate) Acute 08/17/11 N18.3 Presence of permanent cardiac pacemaker Acute ~2015 Z95.0 ASCVD (arteriosclerotic cardiovascular disease) Chronic Severe anxiety with panic Chronic F41.0 GERD (gastroesophageal reflux disease) Chronic K21.9 Depression Chronic F32.9 termite treater helper current use of 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 Chronic Z79.01 Coronary artery disease Chronic I25.10 Medical History Medical History Hypercalcemia (~05/2023) primary hyperPTH Elevated parathyroid hormone (~2023) Drug overdose (~02/2024) lorazepam COVID (~06/2023) Gouty arthropathy, unspecified (08/17/11) Shingles Lumbar radiculopathy Hypokalemia Prolonged CT interval Hematoma Caregiver burden ; 02/2022 Atrial fibrillation s/p ablation 02/2016 Di[place] [facility] [place]; Kefir & Psyllium husk help Trigger finger, right ring finger Trigger finger, left ring finger Trigger finger, left middle finger Fracture of rib of right side (08/26/15) Fracture of right shoulder (08/26/15) Unexplained weight loss GI work-up NEG; Mirtaz helped Chest pain Chronic pain Back; L-T Tramadol RX (which was discont 2018); h/o compression fractures Mid back pain compression fx Sleeping difficulty (07/01/15) Improved on Mirtaz Primary osteoarthritis of right knee (08/24/16) Frequent falls (04/05/17) Chronic atrial fibrillation (11/19/15) s/p Ablation 02/2016 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 [place] [facility]'s dual-chamber pacemaker is functioning normally with ample generator life remaining. She has had no further PAF episodes noted. Her presenting rhythm is atrial pacing and underlying rhythm is sinus bradycardia. No reprogramming needed. She does not use remote monitoring. Chronic fatigue syndrome Surgical History Surgical History History of hysterectomy cardioversion (07/20/14) Dr Garcia, [facility] cardiac catheterization (11/27/14) 3 vessel disease, occluded, Grafts: mammary artery and 2 venous grafts are all open. Trigger Finger release R 4th digit Replacement of total knee joint (09/14/11) CELESTE LEFT TKA Pacemaker (09/05/15) [facility] [place] [employer] DUAL CHAMBER Extraction of cataract (11/11/15) L cataract [place] R cataract-Dr Hutson Ablation for A Fib (03/10/16) Catheter ablatioin for A Flutter and catheter ablatiion for A Fib; [facility] David King H/O surgical procedure a. left cataract surgery b. Duane fundoplication c. carpal tunnel syndrome d. bilateral tubal ligation e. hysterectomy f. arthroscopy left knee 09/2011 g. s/p breast reduction Tobacco Smoking/Tobacco Use Status: Never Passive smoking exposure: No Second hand exposure: No Alcohol Alcohol Intake: never Substance Use Substance use: Never Substance use type: does not use Prental History History 5 Para Hx # Term Pregnancies 4 Multiple births Hx # Pregnancies Ectopic pregnancies AB induced Hx Number of Living Children AB spontaneous Vital Signs and Lab Results Vital Signs Most Recent Vital Signs in EMR: Temp Pulse Resp BP Pulse Ox 36.2 C L 71 18 132/91 H 97 11/30/24 06:52 11/30/24 06:52 11/30/24 06:52 11/30/24 06:52 11/30/24 06:52 Lab Results Blood Type / Crossmatch: No Data to Display Complete Blood Count: No Data to Display Complete Metabolic Panel: No Data to Display Liver Function Panel: No Data to Display Coagulation Panel: No Data to Display Cardiac Panel: No Data to Display Arterial Blood Gas: No Data to Display Venous Blood Gas: No Data to Display Pancreas Panel: No Data to Display Thyroid Panel: No Data to Display Infectious Disease: No Data to Display Blood Cultures: No Data to Display Toxicology Panel: No Data to Display Imaging and Studies Imaging and Studies Study information below may be from another EMR and interpreted by another provider. Please see original notes in EMR for more complete details. EKG Summary: 07/14/24 Conclusion Ventricular-paced complexes...other complexes also detected no ST segment or T wave abnormalities to suggest occlusive [place] Stress Test Summary: 05/25/18 Impressions: Positive stress test after pharmacologic stress. Summary: 1. Myocardial perfusion imaging: There is a moderate sized, moderately intense, partially reversible defect involving the inferior and inferolateral wall(s). This suggests small myocardial infarction and small ischemia in the distribution of right coronary artery or the left circumflex coronary artery. 2. The calculated left ventricular ejection fraction after stress: 50%. LV global systolic function is normal. There is hypokinesis involving the inferior wall(s) of the left ventricle. 3. Stress ECG conclusions: The stress ECG is negative. 4. Baseline ECG: Nonspecific ST and T wave changes. Recommendations: Medical management is recommended. Echocardiogram Summary: 01/08/23 Conclusion Normal left ventricular chamber size. Borderline concentric left ventricular hypertrophy. Ejection fraction is 55%. Wall motion is normal Normal right ventricular size and systolic function Left atrium is moderately dilated. Right atrium is borderline dilated Device lead noted in the right heart Aortic valve is sclerotic and trileaflet with mild regurgitation Mild mitral regurgitation, mitral annular calcification Estimated right ventricular systolic pressure is 27 mmHg Mildly dilated ascending aorta 3.73 cm Carotid Artery Summary:: 02/02/22 FINDINGS: CAROTID ARTERIES: There is a moderate amount of both calcified and noncalcified plaque evident at both carotid bulbs and proximal internal carotid arteries mildly elevated velocities in the proximal right ICA and mid left ICA in the neck, indicating approximately 50-69 percent stenosis bilaterally. Pulmonary Function Summary: 10/31/14 IMPRESSION: Isolated mild diffusion defect. However, this may represent somewhat suboptimal patient effort. Therefore Clinical correlation recommended. . If this represents a true finding, underlying early developing interstitial lung disease or pulmonary hypertension should be consider. 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:: 11/15/24 Reason for Placement:: tachy harshad sydrome Date of Last Device Interrogation:: 11/15/24 Airway Exam Known Difficult Airway: No Mallampati Class: 2 Mouth Opening: Normal (> 3cm) Thyromental Distance: Less than 3 cm Neck Range of Motion: Full ROM Neck Circumference: Normal Teeth Condition: Removable Dentures/Plates Upper (partial) and Removable Dentures/Plates Lower (partial) ASA Classification ASA Score: ASA 3 Emergency Case?: No NPO Status NPO Status: NPO Clears >2 hours, Solids >8 hours Anesthesia Plan Resuscitation Status: Full Code Anesthesia Technique: General Anesthesia Airway Planned: Natural Airway Monitors Used: Standard Monitors
--- NOTE | 2024-11-30 06:00 | RT.EKG_ITS ---
APPROVED REPORT Exam: Resting ECG Reason for Exam: Pre op Patient Location: O HR:71 bpm ECG Measurements Heart Rate 71 AXIS MN [id number] P [id number] QRSd 115 QRS 59 QT 399 T [id number] QTc 451 Conclusion Atrial flutter with varied AV block,...A-rate 208, varied AV conduction Nonspecific intraventricular conduction delay...QRSd >115mS, not LBBB/RBBB
--- NOTE | 2024-11-30 06:00 | RT.EKG_ITS ---
APPROVED REPORT Exam: Resting ECG Reason for Exam: Post op Patient Location: O HR:60 bpm ECG Measurements Heart Rate 60 AXIS [place] 264 P [id number] QRSd 114 QRS 43 QT 432 T [id number] QTc 432 Conclusion Atrial-paced rhythm
[2024-11-30 06:52] VITALS: BP 132/91; PULSE 71; RESP 18; TEMP 36.2; O2SAT 97
[2024-11-30] MEDS: Normal Saline Flush 10 ML SYR IV (07:09)
[2024-11-30 07:29] VITALS: BMI 23.9
[2024-11-30] MEDS: Lactated Ringers 1,000 ML 30 ML IV (07:29)
[2024-11-30 07:59] VITALS: BP 127/66; PULSE 80; RESP 12; TEMP 36.2; O2SAT 93
--- NOTE | 2024-11-30 08:06 | W.CARDVER ---
Date of service: 11/30/24 Time of Service: 08:06 Cardioversion DATE OF PROCEDURE: 11/30/24 PRE-OP DIAGNOSES: Atrial fibrillation POST-OP DIAGNOSES: same Indications: Persistent atrial fibrillation Procedure Description: Synchronized cardioversion Informed consent for the procedure was obtained. The patient was brought to the operating room and placed on anterior and posterior ZOLL pads. She was sedated under the direction of the anesthesiologist. When adequate sedation was obtained, 2 synchronized shocks of 200 W seconds were administered. Sinus rhythm was not restored. Subsequent rhythm was atrial fibrillation with demand ventricular pacing. Patient tolerated the procedure without incident and was brought to the recovery room. She will be discharged when fully awake
--- NOTE | 2024-11-30 08:07 | W.PM.DSUDISC ---
Date of service: 11/30/24 Discharge Plan Disposition Patient Disposition: Home Condition: Stable Discharge Details Attending Provider: Bethany Solares Primary Care Provider: Linn Paulino Home Meds and New Rx's Prescriptions: No Action zoledronic ycyn-lzxevtod-zcegf [Reclast] 5 mg/100 mL piggyback See Rx Instructions IV .once per year Qty: 100 0RF Rx Instructions: 100mL IV .once per year; administer over at least 15 mins carvedilol 12.5 mg tablet 12.5 mg PO BID Qty: 180 3RF Rx Instructions: must administer with a meal/food nystatin 100,000 unit/gram cream 1 applic TP BID PRN (Reason: robin rash) Qty: 30 0RF Rx Instructions: Apply to affected area on abdomen metamucil 1 unit PO DAILY PRN Qty: 30 0RF apixaban 2.5 mg tablet 2.5 mg PO BID Qty: 180 3RF Rx Instructions: Dose reduction 03/06/2024 omeprazole 20 mg tablet,delayed release (DR/EC) 20 mg PO .every other day MDD 20mg/24h Qty: 45 3RF Rx Instructions: Take on empty stomach every other day for atypical chest pain/heartburn citalopram 20 mg tablet See Rx Instructions .ROUTE .COMPLEX Qty: 90 3RF Dose Instruction: TAKE ONE TABLET BY MOUTH EVERY DAY AT BEDTIME Rx Instructions: TAKE ONE TABLET BY MOUTH EVERY DAY AT BEDTIME lorazepam 0.5 mg tablet 0.5 mg PO DAILY PRN (Reason: anxiety) Qty: 28 5RF losartan 50 mg tablet 50 mg PO DAILY Qty: 90 3RF Rx Instructions: Blood pressure--dose decrease 12/22/23 to 50mg daily (rather than BID) for BP goal <140/90 ketoconazole 2 % cream 1 applic topical DAILY 90 Days Qty: 60 3RF Rx Instructions: Apply to toenails once daily gabapentin 300 mg capsule 300 mg PO BID Qty: 180 3RF Rx Instructions: Dose decrease 04/19/23 clotrimazole 1 % cream 1 applic topical BID Qty: 45 0RF Rx Instructions: Apply liberal amount to rash in groin until resolved. mirtazapine 30 mg tablet 30 mg PO QHS Qty: 90 1RF Rx Instructions: Dose increase 07/17/2024 (DME) Accu-Chek Guide test strips Strip See Rx Instructions .Route Qty: 100 3RF Rx Instructions: to check blood glucose daily. No insulin. DX E11.9 to maintain HbA1c less than 7% (DME) blood-glucose meter [Accu-Chek Guide Glucose Meter] Misc See Rx Instructions .Route Qty: 1 0RF Rx Instructions: to check blood glucose daily. DX: E11.9 to maintain HbA1c less than 7% (DME) lancets [Accu-Chek Softclix Lancets] Misc See Rx Instructions .Route Qty: 100 3RF Rx Instructions: to check blood glucose daily. no insulin. DX:E11.9 to maintain HbA1c less than 7% urea 40 % cream See Rx Instructions .ROUTE .COMPLEX Qty: 85 1RF Dose Instruction: APPLY TOPICALLY AT BEDTIME NEEDED FOR SKIN IRRITATION Rx Instructions: APPLY TOPICALLY AT BEDTIME NEEDED FOR SKIN IRRITATION nitroglycerin [Nitrostat] 0.4 mg tablet, sublingual 0.4 mg Sublingual Q5 MIN PRN X3 PRN (Reason: chest pain) Qty: 20 1RF Patient Comments: 06/15/19-unable to verify meds, pt left drug list at home and does not know meds/doses. Rx Instructions: Q5min, x3 max, PRN chest pressure lamotrigine 100 mg tablet See Rx Instructions .ROUTE .COMPLEX Qty: 180 3RF Dose Instruction: TAKE ONE TABLET BY MOUTH TWICE A DAY Rx Instructions: TAKE ONE TABLET BY MOUTH TWICE A DAY metformin 500 mg tablet extended release 24 hr See Rx Instructions .ROUTE .COMPLEX Qty: 90 3RF Dose Instruction: TAKE ONE TABLET BY MOUTH EVERY DAY WITH THE LARGEST MEAL FOR DIABETES Rx Instructions: TAKE ONE TABLET BY MOUTH EVERY DAY WITH THE LARGEST MEAL FOR DIABETES atorvastatin 40 mg tablet See Rx Instructions .ROUTE .COMPLEX Qty: 90 3RF Dose Instruction: TAKE ONE TABLET BY MOUTH EVERY DAY Rx Instructions: TAKE ONE TABLET BY MOUTH EVERY DAY cyanocobalamin (vitamin B-12) 1,000 mcg/mL solution 1,000 mcg IM QMONTH Rx Instructions: 10/30/24- has been receiving mo injections at office/nurse visits- see flowsheet- adding to med list. [place] acetaminophen [Tylenol] 325 MG tablet 650 mg PO Q4H PRN PRNQty: 0 0RF amlodipine 5 mg tablet 5 mg PO DAILY Patient Comments: TAKE ONE TABLET BY MOUTH EVERY DAY AT BEDTIME. DOSE REDUCED 04/19/23 lidocaine 5 % adhesive patch,medicated 1 patch transdermal DAILY PRN Patient Comments: ONE PATCH TOPICALLY NEEDED FOR COMPRESSION FRACTURE PAIN; LEAVE ON MOST PAINFUL AREA FOR 12 HOURS. THEN REMOVE FOR COMPRESSION FRACTURE O acyclovir 5 % Ointment 15 g topical 5X/DAY Qty: 0 0RF Discharge Instructions Stand Alone Forms: Anesthesia Discharge Inst., DSU Cardioversion Post-Op, Melinda Arnold (DSU) Activity:: Activity as Tolerated Diet:: As Tolerated DS: Diagnosis Discharge Diagnosis (1) Atrial fibrillation:
--- NOTE | 2024-11-30 08:14 | W.ANESPOSTOP ---
Postoperative Evaluation Date, Time and Location Date Performed: 11/30/24 Time Performed: 08:14 Patient Location: Day Surgery Unit Vital Signs Most Recent Imported Vital Signs: Most Recent Vital Signs Temp Pulse Resp BP Pulse Ox 36.2 C L 80 12 127/66 93 11/30/24 07:59 11/30/24 07:59 11/30/24 07:59 11/30/24 07:59 11/30/24 07:59 Pain Score Most Recent Pain Score: Most Recent Pain Score Pain Level 0 11/30/24 06:52 Assessment Mental Status: Awake (Alert & Oriented to Patient Baseline) Airway and Respiratory Function: Patent airway with normal (patient baseline) respiratory exam Cardiovascular Function: Hemodynamically Stable Hydration Status: Adequately Hydrated Nausea & Vomiting: No Nausea or Vomiting Pain: Pt. Denies Any Pain Peripheral Nerve Block: Patient did not receive a nerve block
[2024-11-30 08:26] VITALS: BP 128/71; PULSE 60; RESP 16; TEMP 36.2; O2SAT 95
== END 2024-11-30 08:56 | disposition home or self-care (01) ==
PROVIDERS: PCP Nurse Practitioner Adult Health; Visit Provider Internal Medicine Cardiovascular Disease
PROC: 5A2204Z Restoration of Cardiac Rhythm, Single (ICD-10-PCS; CPT 92960; principal; 2024-11-30 07:30)
DX: I48.91 Unspecified atrial fibrillation (principal)
CPT/HCPCS: 92960; 93005; 93010; J2704

== ENCOUNTER 2024-12-11 08:46 | Outpatient (CLI) | payer MEDICARE, BC, SELFPAY ==
--- NOTE | 2024-12-11 08:45 | RT.EKG_ITS ---
APPROVED REPORT Exam: Resting ECG Reason for Exam: atrial fibrill Patient Location: O HR:71 bpm ECG Measurements Heart Rate 71 AXIS [place] 247 P [id number] QRSd 115 QRS 21 QT 398 T 246 QTc 433 Conclusion Atrial-paced complexes...other complexes also detected Prolonged OR interval...OR >220, V-rate 50- [address]-T abnormalities
== END 2024-12-11 08:47 | disposition home or self-care (01) ==
LOC: DI.CARD 08:48
PROVIDERS: PCP Nurse Practitioner Adult Health; Visit Provider Registered Nurse
DX: I48.91 Unspecified atrial fibrillation (principal)
CPT/HCPCS: 93010

== ENCOUNTER → 2024-12-11 12:33 | Outpatient (BNVA) | payer MEDICARE, BC, SELFPAY | PROVIDERS: PCP Nurse Practitioner Adult Health; Referring Provider Nurse Practitioner Adult Health; Visit Provider Registered Nurse | DX: I25.10 Atherosclerotic heart disease of native coronary artery without angina pectoris (principal); I48.20 Chronic atrial fibrillation, unspecified; I34.0 Nonrheumatic mitral (valve) insufficiency; Z95.0 Presence of cardiac pacemaker | CPT/HCPCS: 99214; 93005 ==

== ENCOUNTER 2025-01-30 03:58 | Emergency (ER) | payer MEDICARE, BC, SELFPAY ==
[2025-01-30] VITALS (17 sets, daily range): BP systolic 198–267; BP diastolic 78–103; PULSE 60–75; RESP 18; TEMP 36.8; O2SAT 94–98
--- NOTE | 2025-01-30 04:00 | DI.CT_ITS ---
Exam(s) CT CHEST/ABD/PEL WO CT THORACIC LUMBAR SPINE REC EXAM: CT CHEST/ABD/PEL WO CLINICAL HISTORY: fall, pain in left ribs and back. TECHNIQUE: Imaging Protocol: Axial computed tomography images with coronal and sagittal reformatted images were created and reviewed. Computer aided detection (CAD) was utilized. Axial, coronal and sagittal images were reconstructed from the chest abdomen pelvic CT in bone and soft tissue algorithm. CONTRAST MATERIAL: Intravenous: No Oral: / no COMPARISON: CT CT ABDOMEN PELVIS WO/W from 06/15/[address] THORACIC LUMBAR SPINE WO from 07/14/[address] THORACIC LUMBAR SPINE REC from 01/30/2025 FINDINGS: CHEST: Pulmonary parenchyma: No consolidation. No dominant measurable mass. Tracheobronchial tree: No bronchiectasis. No mucous plugging.No bronchial wall thickening. Pleura: No effusion or pneumothorax. Mediastinum: Within normal limits. Pulmonary arteries: No visible emboli. Cardiovascular: The heart is mildly enlarged. Coronary artery calcifications are present. There is a pacemaker. No pericardial effusion. Thoracic aorta non-dilated. Atherosclerotic changes. Bones: Stable old mild compression fracture of the superior endplate of T11. Degenerative changes greatest at T8-9. Sternal wires. No lytic or blastic lesions. Soft tissues: Unremarkable. ABDOMEN and PELVIS: Liver: Normal density. No suspicious mass. Gallbladder and biliary tract: No evidence of stones or wall thickening. No biliary dilatation. Pancreas: Atrophic. Spleen: Normal. Kidneys: Atrophy of the upper and mid poles of the right kidney. Upper pole renal artery is diminutive. There is a 2nd artery feeding the lower pole. Mild dilatation of the infrarenal abdominal aorta to 2.8 cm. No radiodense stones. No obstructive uropathy. No suspicious masses seen. Adrenal glands: No masses seen. Aorta: Severe atherosclerotic changes of the aorta. Heavy calcification noted at the origin of the celiac and superior mesenteric arteries. Lymph nodes: Within normal limits. Soft tissues: Unremarkable. Bladder: Over distended but unremarkable. Bowel: No obstruction or bowel wall thickening. Mild diverticulosis. Peritoneal cavity: No ascites. No focal collection. No mesenteric inflammatory response. No free air. Bones: No acute spine or pelvic fracture. There is a Schmorl's node at the superior endplate of L3. There are mild degenerative changes for the patient's age. Reproductive organs: Unremarkable hysterectomy. IMPRESSION: No acute abnormality in the chest, abdomen or pelvis. Stable mild T11 compression fracture. The preliminary [facility] report was reviewed. RADIATION DOSE DELIVERED: 324.49mGy.cm Total DLP DATA REPOSITORY: All CT scans at this facility are submitted to the National Radiology Data Registry (NRDR) Dose Index Registry (DIR) with the [employer] ([employer]). RADIATION OPTIMIZATION: All CT scans at this facility use at least one of these dose optimization techniques: automated exposure control; mA and/or kV adjustment per patient size (includes targeted exams where dose is matched to clinical indication); or iterative reconstruction.
--- NOTE | 2025-01-30 04:00 | DI.CT_ITS ---
Exam(s) CT HEAD CERV SPINE FACIAL WO EXAM: CT HEAD CERV SPINE FACIAL WO CLINICAL HISTORY: fall, hit head, on Eliquis. TECHNIQUE: Imaging Protocol: Axial computed tomography images with coronal and sagittal reformatted images were created and reviewed COMPARISON: CT CT HEAD CERVICAL SPINE WO from 07/14/2024 FINDINGS: CT Head: Ventricles and Extra axial spaces: Normal in size and morphology for the patient's age. Hemorrhage: None. Cerebral parenchyma: No evidence of acute hemorrhage or acute infarct. [id number] atrophy consistent with the patient's age. White matter changes consistent with small vessel disease. Midline shift: None. Brainstem/Cerebellum: Normal. Calvarium: Normal. Visualized Paranasal sinuses/Mastoids: Clear. Soft Tissues: Right parietal scalp swelling. CT Face: Facial Bones: No fracture is noted in facial bones. Sinuses and Mastoids: Unremarkable. Globes, extraocular muscles, optic nerves and retrobulbar fat: Normal. Upper aerodigestive tract: Normal. Mandible and bilateral temporomandibular joints: Degenerative changes of the temporomandibular joints. Soft tissues: Normal. CT Cervical Spine: Bones: No acute fracture or subluxation. Degenerative changes are present in the spine. Soft Tissues: Unremarkable. Lung Apices: Clear. IMPRESSION: 1. No acute intracranial process. 2. No acute fracture or subluxation in the cervical spine. 3. No acute facial fracture. The preliminary [facility] report was reviewed. RADIATION DOSE DELIVERED: 1,335.47mGy.cm Total DLP DATA REPOSITORY: All CT scans at this facility are submitted to the National Radiology Data Registry (NRDR) Dose Index Registry (DIR) with the [employer] ([employer]). RADIATION OPTIMIZATION: All CT scans at this facility use at least one of these dose optimization techniques: automated exposure control; mA and/or kV adjustment per patient size (includes targeted exams where dose is matched to clinical indication); or iterative reconstruction.
--- NOTE | 2025-01-30 04:00 | DI.RAD_ITS ---
Exam(s) XR KNEE LT 2V AP,LAT EXAM: XR KNEE LT 2V AP,LAT CLINICAL HISTORY: fall, left knee pain. TECHNIQUE: 2D digital imaging was performed. Two views. COMPARISON: No exams were available for comparison FINDINGS: BONES: No acute fracture is present. No bony destructive lesion is seen. JOINTS: The knee prosthesis is normally aligned. No joint effusion is seen. SOFT TISSUE: Vascular calcifications and surgical clips. IMPRESSION: No acute abnormality. DATA REPOSITORY: RADIATION DOSE DELIVERED:
--- NOTE | 2025-01-30 04:38 | W.ED.GENAD ---
Discharge Plan Disposition Patient Disposition: Home Condition: Good Discharge Details Clinical Impression: Fall, Contusion of scalp, Back pain Primary Care Provider: Linn Paulino ED Provider: Michael Durham Home Meds and New Rx's Prescriptions: No Action zoledronic [id number] [Reclast] 5 mg/100 mL piggyback See Rx Instructions IV .once per year Qty: 100 0RF Rx Instructions: 100mL IV .once per year; administer over at least 15 mins carvedilol 12.5 mg tablet 12.5 mg PO BID Qty: 180 3RF Rx Instructions: must administer with a meal/food nystatin 100,000 unit/gram cream 1 applic TP BID PRN (Reason: robin rash) Qty: 30 0RF Rx Instructions: Apply to affected area on abdomen metamucil 1 unit PO DAILY PRN Qty: 30 0RF apixaban 2.5 mg tablet 2.5 mg PO BID Qty: 180 3RF Rx Instructions: Dose reduction 03/06/2024 omeprazole 20 mg tablet,delayed release (DR/EC) 20 mg PO .every other day MDD 20mg/24h Qty: 45 3RF Rx Instructions: Take on empty stomach every other day for atypical chest pain/heartburn citalopram 20 mg tablet See Rx Instructions .ROUTE .COMPLEX Qty: 90 3RF Dose Instruction: TAKE ONE TABLET BY MOUTH EVERY DAY AT BEDTIME Rx Instructions: TAKE ONE TABLET BY MOUTH EVERY DAY AT BEDTIME lorazepam 0.5 mg tablet 0.5 mg PO DAILY PRN (Reason: anxiety) Qty: 28 5RF losartan 50 mg tablet 50 mg PO DAILY Qty: 90 3RF Rx Instructions: Blood pressure--dose decrease 12/22/23 to 50mg daily (rather than BID) for BP goal <140/90 gabapentin 300 mg capsule 300 mg PO TID Qty: 270 3RF Rx Instructions: Dose increase 01/08/2025 ketoconazole 2 % cream 1 applic topical DAILY 90 Days Qty: 60 3RF Rx Instructions: Apply to toenails once daily clotrimazole 1 % cream 1 applic topical BID Qty: 45 0RF Rx Instructions: Apply liberal amount to rash in groin until resolved. (DME) Accu-Chek Guide test strips Strip See Rx Instructions .Route Qty: 100 3RF Rx Instructions: to check blood glucose daily. No insulin. DX E11.9 to maintain HbA1c less than 7% (DME) blood-glucose meter [Accu-Chek Guide Glucose Meter] Misc See Rx Instructions .Route Qty: 1 0RF Rx Instructions: to check blood glucose daily. DX: E11.9 to maintain HbA1c less than 7% (DME) lancets [Accu-Chek Softclix Lancets] Misc See Rx Instructions .Route Qty: 100 3RF Rx Instructions: to check blood glucose daily. no insulin. DX:E11.9 to maintain HbA1c less than 7% urea 40 % cream See Rx Instructions .ROUTE .COMPLEX Qty: 85 1RF Dose Instruction: APPLY TOPICALLY AT BEDTIME NEEDED FOR SKIN IRRITATION Rx Instructions: APPLY TOPICALLY AT BEDTIME NEEDED FOR SKIN IRRITATION nitroglycerin [Nitrostat] 0.4 mg tablet, sublingual 0.4 mg Sublingual Q5 MIN PRN X3 PRN (Reason: chest pain) Qty: 20 1RF Patient Comments: 06/15/19-unable to verify meds, pt left drug list at home and does not know meds/doses. Rx Instructions: Q5min, x3 max, PRN chest pressure lamotrigine 100 mg tablet See Rx Instructions .ROUTE .COMPLEX Qty: 180 3RF Dose Instruction: TAKE ONE TABLET BY MOUTH TWICE A DAY Rx Instructions: TAKE ONE TABLET BY MOUTH TWICE A DAY atorvastatin 40 mg tablet See Rx Instructions .ROUTE .COMPLEX Qty: 90 3RF Dose Instruction: TAKE ONE TABLET BY MOUTH EVERY DAY Rx Instructions: TAKE ONE TABLET BY MOUTH EVERY DAY cyanocobalamin (vitamin B-12) 1,000 mcg/mL solution 1,000 mcg IM QMONTH Rx Instructions: 10/30/24- has been receiving mo injections at office/nurse visits- see flowsheet- adding to med list. [place] mirtazapine 30 mg tablet See Rx Instructions .ROUTE .COMPLEX Qty: 90 3RF Dose Instruction: TAKE ONE TABLET BY MOUTH EVERY DAY AT BEDTIME Rx Instructions: TAKE ONE TABLET BY MOUTH EVERY DAY AT BEDTIME acetaminophen [Tylenol] 325 MG tablet 650 mg PO Q4H PRN PRNQty: 0 0RF amlodipine 5 mg tablet 5 mg PO DAILY Patient Comments: TAKE ONE TABLET BY MOUTH EVERY DAY AT BEDTIME. DOSE REDUCED 04/19/23 lidocaine 5 % adhesive patch,medicated 1 patch transdermal DAILY PRN Patient Comments: ONE PATCH TOPICALLY NEEDED FOR COMPRESSION FRACTURE PAIN; LEAVE ON MOST PAINFUL AREA FOR 12 HOURS. THEN REMOVE FOR COMPRESSION FRACTURE O acyclovir 5 % Ointment 15 g topical 5X/DAY Qty: 0 0RF Discharge Instructions Instructions: Acute Pain, Adult Additional Instructions: At this time the CT scans of your head neck chest abdomen and pelvis and your x-ray of the knee show no evidence of significant acute fracture. Your blood work has otherwise returned reassuring. Please take Tylenol as needed for pain. Please use your home Lidoderm patches to help with any soreness in your back or neck. If you notice any worsening of your symptoms, or any new symptoms such as vomiting, diarrhea, fever, chills, shortness of breath, chest pain, numbness, weakness, or fainting , please return immediately to the emergency department for reevaluation. Please follow up with your primary care provider as soon as possible for reassessment and reevaluation. As always, it was a pleasure participating in your medical care today. Referrals: Linn Paulino NP [Primary Care Provider, Medicine] Discharge Data Discharge Date/Time-TO BE ENTERED AT DEPARTURE: 01/30/25 06:32 HPI General Date/Time Provider Initiated Documentation: 01/30/25 04:12. HPI Narrative: This is an 84-year-old female with a past medical history of abdominal aortic aneurysm, chronic kidney disease, type 2 diabetes, atherosclerotic cardiovascular disease, pacemaker, GERD, atrial fibrillation on Eliquis, who presents today after a fall. Patient was at home, and got up in the early hours of the morning. She felt confused waking up in the dark, and ended up falling and hitting her head as well as her left back and left knee. She admits to chronic back pain from vertebral compression fractures. She believes she was down for about an hour of time. She admits to mild pain in her left knee, left back and head. She denies any other complaints. She denies fever or chills, numbness or tingling or vision changes. No other complaints at this time. Related Data Home Medications ?Medication ?Instructions ?Recorded ?Confirmed acetaminophen 325 mg tablet 650 mg (2 x 325 mg) PO Q4H PRN PRN 01/15/16 01/08/25 (Tylenol) #0 tabs zoledronic acid 5 mg/100 mL in See Rx Instructions IV .once per 06/23/21 01/08/25 mannitol 5 %-water intravenous year #100 mL piggybck (Reclast) Held on 01/08/25. Instructions: pending labs 12/2024 acyclovir 5 % topical ointment 15 g topical 5X/DAY #0 grams 03/29/23 01/08/25 ketoconazole 2 % topical cream 1 applic topical DAILY 3 months 05/24/23 01/08/25 #60 grams nystatin 100,000 unit/gram topical 1 applic topical BID PRN robin 07/07/23 01/08/25 cream rash #30 grams Held on 07/17/24. Instructions: groin rash--not working as well blood sugar diagnostic (Accu-Chek #100 ea 10/04/23 01/08/25 Guide test strips) blood-glucose meter (Accu-Chek #1 ea 10/04/23 01/08/25 Guide Glucose Meter) lancets (Accu-Chek Softclix #100 ea 10/04/23 01/08/25 Lancets) urea 40 % topical cream See Rx Instructions .Route 11/18/23 01/08/25 .COMPLEX #85 grams metamucil 1 unit PO DAILY PRN #30 tabs 11/22/23 01/08/25 amlodipine 5 mg tablet 5 mg PO DAILY 03/01/24 01/08/25 lidocaine 5 % topical patch 1 patch transdermal DAILY PRN 03/01/24 01/08/25 apixaban 2.5 mg tablet 2.5 mg PO BID #180 tabs 03/06/24 01/08/25 omeprazole 20 mg tablet,delayed 20 mg PO .every other day #45 tabs 03/06/24 01/08/25 release nitroglycerin 0.4 mg sublingual 0.4 mg sublingual Q5 MIN PRN X3 03/14/24 01/08/25 tablet (Nitrostat) PRN chest pain #20 tabs clotrimazole 1 % topical cream 1 applic topical BID #45 grams 07/17/24 01/08/25 lamotrigine 100 mg tablet See Rx Instructions .Route 08/16/24 01/08/25 .COMPLEX #180 tabs citalopram 20 mg tablet See Rx Instructions .Route 08/21/24 01/08/25 .COMPLEX #90 tabs atorvastatin 40 mg tablet See Rx Instructions .Route 09/25/24 01/08/25 .COMPLEX #90 tabs cyanocobalamin (vitamin B-12) 1,000 mcg IM QMONTH 10/30/24 01/08/25 1,000 mcg/mL injection solution carvedilol 12.5 mg tablet 12.5 mg PO BID #180 tabs 11/15/24 01/08/25 lorazepam 0.5 mg tablet 0.5 mg PO DAILY PRN anxiety #28 11/27/24 01/08/25 tabs losartan 50 mg tablet 50 mg PO DAILY #90 tabs 11/27/24 01/08/25 mirtazapine 30 mg tablet See Rx Instructions .Route 01/01/25 01/08/25 .COMPLEX #90 tabs gabapentin 300 mg capsule 300 mg PO TID #270 caps 01/08/25 01/08/25 Previous Rx's ?Medication ?Instructions ?Recorded acetaminophen 325 mg tablet 650 mg (2 x 325 mg) PO Q4H PRN PRN 01/15/16 (Tylenol) #0 tabs zoledronic acid 5 mg/100 mL in See Rx Instructions IV .once per 06/23/21 mannitol 5 %-water intravenous year #100 mL piggybck (Reclast) Held on 01/08/25. Instructions: pending labs 12/2024 acyclovir 5 % topical ointment 15 g topical 5X/DAY #0 grams 03/29/23 ketoconazole 2 % topical cream 1 applic topical DAILY 3 months 05/24/23 #60 grams nystatin 100,000 unit/gram topical 1 applic topical BID PRN robin 07/07/23 cream rash #30 grams Held on 07/17/24. Instructions: groin rash--not working as well blood sugar diagnostic (Accu-Chek #100 ea 10/04/23 Guide test strips) blood-glucose meter (Accu-Chek #1 ea 10/04/23 Guide Glucose Meter) lancets (Accu-Chek Softclix #100 ea 10/04/23 Lancets) urea 40 % topical cream See Rx Instructions .Route 11/18/23 .COMPLEX #85 grams metamucil 1 unit PO DAILY PRN #30 tabs 11/22/23 apixaban 2.5 mg tablet 2.5 mg PO BID #180 tabs 03/06/24 omeprazole 20 mg tablet,delayed 20 mg PO .every other day #45 tabs 03/06/24 release nitroglycerin 0.4 mg sublingual 0.4 mg sublingual Q5 MIN PRN X3 03/14/24 tablet (Nitrostat) PRN chest pain #20 tabs clotrimazole 1 % topical cream 1 applic topical BID #45 grams 07/17/24 lamotrigine 100 mg tablet See Rx Instructions .Route 08/16/24 .COMPLEX #180 tabs citalopram 20 mg tablet See Rx Instructions .Route 08/21/24 .COMPLEX #90 tabs atorvastatin 40 mg tablet See Rx Instructions .Route 09/25/24 .COMPLEX #90 tabs carvedilol 12.5 mg tablet 12.5 mg PO BID #180 tabs 11/15/24 lorazepam 0.5 mg tablet 0.5 mg PO DAILY PRN anxiety #28 11/27/24 tabs losartan 50 mg tablet 50 mg PO DAILY #90 tabs 11/27/24 mirtazapine 30 mg tablet See Rx Instructions .Route 01/01/25 .COMPLEX #90 tabs gabapentin 300 mg capsule 300 mg PO TID #270 caps 01/08/25 Allergies Allergy/AdvReac Type Severity Reaction Status Date / Time nifedipine Allergy Mild Hives Verified 01/08/25 09:56 amiodarone AdvReac Severe tremor Verified 01/08/25 09:56 oxycodone AdvReac Severe heavy Verified 01/08/25 09:56 sedation valacyclovir AdvReac Severe confusion Verified 01/08/25 09:56 amoxicillin AdvReac Intermediate sore Verified 01/08/25 09:56 burning mouth Anesthetics - Amide Type - AdvReac Intermediate anxious Verified 01/08/25 09:56 Select A (Anesthetics - Amide Type) diazepam AdvReac Intermediate Agitation Verified 01/08/25 09:56 indomethacin AdvReac Intermediate headache, Verified 01/08/25 09:56 flush metformin AdvReac Intermediate Diarrhea Verified 01/08/25 09:56 General Stated Complaint: Fall/Non TraumaCriteria ANASTACIA: 3 Exam Narrative Exam Narrative: 1.Const: Well-nourished, Well-developed, appearing stated age 2.Eyes: PERRL, no conjunctival injection, and symmetrical lids. 3.ENT: Atraumatic external nose and ears. Moist MM. Neck: Symmetric, trachea midline, No thyromegaly. There is no evidence of raccoon eyes, pathak sign, CSF rhinorrhea, mastoid tenderness, cranial crepitus, hemotympanum, exophthalmos, or hyphema. Patient demonstrates intact dentition with no signs of tooth avulsion or fracture, no signs of jaw deformity, no evidence of a LeFort's fracture, with an intact palate, nose and orbital region. There is no evidence of a nasal septal hematoma. No proptosis. Jaw closes symmetrically. Airway is clear. However there is a hematoma over the right posterior scalp. 4.CVS: Regular rate and rhythm, Normal s1 and s2. No murmurs, carotid bruits, rubs, or gallops. Radial pulses 2+ bilaterally and symmetric. Dorsalis pedis pulses 2+ bilaterally and symmetric. 2+ capillary refill. No evidence of distant heart sounds. No extremity edema. No evidence of gross hemorrhage. 5.RESP: Airway clear, no obstructions. No abrasions or ecchymosis. Chest movement symmetric with respirations. Trachea midline. No crepitus. No step offs. No paradoxical movements. Lungs are clear to auscultation bilaterally. No rales, rhonchi, wheezing or stridor. Breath sound symmetric. No Sucking chest wounds. Mild tenderness noted over the left ribs. No clinical evidence of significant chest trauma. 6.GI: Soft, nondistended, nontender. Bowel tones normoactive. No masses or organomegaly. No ecchymosis or abrasions. No periumbilical ecchymosis or seatbelt sign. No flank or CVA tenderness. No clinical signs of significant trauma. Genital Exam: Intact and traumatically unremarkable genital and rectal exam with no significant bruising, blood, or deformity. Rectal tone normal, stool without gross blood. No clinical evidence of significant abdominal trauma. 7.MSK: No gross deformities or discolorations or lesions. Tolerates full range of motion of extremities without tenderness, except for mild tenderness in the left knee on palpation.. All compartments of upper and lower extremities are soft with no tenderness. Vascular exam demonstrates brisk capillary refill and intact pulses in all extremities. Pelvic exam demonstrates a stable pelvis, nontender to lateral compression and palpation of symphysis pubis.. No clinical evidence of significant musculoskeletal trauma. 8.Skin: Warm, Dry. No rashes or lesions. Few small scrapes are noted over the wrist and elbow on the left and right. No active bleeding or large laceration. 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 Sensation grossly intact, no focal neurologic deficits. 10.Psych: (AAO) x3. Appropriate mood and affect Course Vital Signs Vital signs: Vital Signs Temperature 36.8 C 01/30/25 03:58 Pulse 75 01/30/25 03:58 Respiratory Rate 18 01/30/25 03:58 Blood Pressure 267/103 H 01/30/25 03:58 Pulse Oximetry 96 01/30/25 03:58 Temperature 36.8 C 01/30/25 03:58 Temperature Source Oral 01/30/25 03:58 Pulse 75 01/30/25 03:58 Respiratory Rate 18 01/30/25 03:58 Blood Pressure 267/103 H 01/30/25 03:58 Blood Pressure Position Supine 01/30/25 03:58 Pulse Oximetry 96 01/30/25 03:58 Oxygen Delivery Method Room Air 01/30/25 03:58 Oxygen Flow Rate 0 01/30/25 03:58 Pain Level 2 01/30/25 03:58 Medical Decision Making This is an 84-year-old female with a past medical history of abdominal aortic aneurysm, chronic kidney disease, type 2 diabetes, atherosclerotic cardiovascular disease, pacemaker, GERD, atrial fibrillation on Eliquis, who presents today after a fall. Patient was at home, and got up in the early hours of the morning. She felt confused waking up in the dark, and ended up falling and hitting her head as well as her left back and left knee. She admits to chronic back pain from vertebral compression fractures. She believes she was down for about an hour of time. She admits to mild pain in her left knee, left back and head. She denies any other complaints. She denies fever or chills, numbness or tingling or vision changes. No other complaints at this time. Exam demonstrates mild left rib tenderness and left knee tenderness. Mild hematoma on the scalp. No other significant abnormality. Concern for fracture or bleed. Will get CT imaging, monitor closely and reassess. No neurologic deficits to suggest stroke. No dysuria or fever to suggest UTI or infection. CT and x-ray results returned negative. No acute process. There is some mild fat stranding around the head of the pancreas, however the patient has no nausea, abdominal pain, vomiting, or other symptomatology to suggest acute pancreatitis. Patient's laboratory workup shows no evidence of an elevated lipase. Symptoms are notably clinically inconsistent with acute or chronic pancreatitis. Discussed these findings with family. Discussed red flags which to return. Patient stable for discharge. She ambulated well through the emergency department prior to discharge. I have extensively reviewed the treatment plan and discharge instructions with the patient and their family. I have addressed all patient concerns at this time. The patient and family was made aware of what symptoms to monitor for that would warrant a return to the emergency department. Discussed the plan with the patient and family, they demonstrate verbal understanding and agreement with our assessment and plan at this time. The documentation in this chart was dictated using [employer] dictation software. Please excuse any dictation errors. FINDINGS: Brain: There is no evidence of acute brain infarct, mass, shift of midline or parenchymal hemorrhage. Patchy periventricular white matter low attenuation present, a nonspecific finding but likely related to chronic small vessel ischemic change. Cerebral ventricles: Moderate dilatation of the ventricular system and sulci diffusely, compatible with volume loss. Paranasal sinuses: Visualized sinuses are unremarkable. No fluid levels. Mastoid air cells: Visualized mastoid air cells are well aerated. Bones: Unremarkable. No acute fracture. Soft tissues: Right parietal scalp hematoma. Right forehead scalp hematoma IMPRESSION: No acute intracranial hemorrhage FINDINGS: Paranasal sinuses: No air-fluid levels. Orbital cavities: Orbits are normal. Globes are unremarkable. Teeth: Patient nearly edentulous Bones: No acute fracture. Soft tissues: Unremarkable. IMPRESSION: No acute findings. FINDINGS: Bones: Multilevel degenerative disc disease. No acute fracture. FINDINGS: Bones/joints: Stable irregularity involving the superior endplate of T11. No evidence of acute fracture. Alignment is intact. No evidence of severe central canal stenosis. Soft tissues: Please refer to dedicated CT of the chest for description of the paraspinous soft tissues. IMPRESSION: No acute thoracic spine fracture FINDINGS: Bones/joints: No acute fracture. Normal alignment. No significant disc bulge or herniation. No severe spinal canal stenosis. No significant neural foraminal narrowing. Soft tissues: Please refer to dedicated CT of the abdomen and pelvis for description of the paraspinal structures. IMPRESSION: No acute lumbar spine fracture. Thank you for allowing us to participate in the care of your patient. Dictated and Authenticated by: Pelon Alvarenga MD 01/30/2025 5:49 AM Eastern Time ([place] & [place]) FINDINGS: Lungs: Unremarkable. No consolidation. No masses. Pleural spaces: Unremarkable. No pneumothorax. No pleural effusion. Heart: Unremarkable. No cardiomegaly. No pericardial effusion. Coronary arteries: Coronary artery atherosclerosis is noted. Lymph nodes: Unremarkable. No enlarged lymph nodes. Vasculature: Thoracic aortic atherosclerotic plaque. Bones/joints: Median sternotomy wires. Persistent irregularity of the superior endplate of T11. No visualized acute fracture. Soft tissues: Unremarkable. IMPRESSION: No acute findings. FINDINGS: Liver: Normal. No mass. Gallbladder and biliary ducts: Normal. No calcified stones. No ductal dilation. Pancreas: There is mild fat stranding surrounding the head of the pancreas. Findings are concerning for acute pancreatitis. Correlation with laboratory values. Spleen: Normal. No splenomegaly. Adrenal glands: Normal. No mass. Kidneys and ureters: Atrophy of the superior and midportion of the right kidney. Stomach and bowel: Unremarkable. No obstruction. No mucosal thickening. Appendix: No evidence of appendicitis. Intraperitoneal space: Unremarkable. No free air. No significant fluid collection. Vasculature: Abdominal aortic atherosclerotic plaque. 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 Infrarenal abdominal aortic ectasia. Lymph nodes: Unremarkable. No enlarged lymph nodes. Urinary bladder: Unremarkable as visualized. Reproductive: Unremarkable as visualized. Bones/joints: Unremarkable. No acute fracture. Soft tissues: Tiny fat containing umbilical hernia. IMPRESSION: 1. There is mild fat stranding surrounding the head of the pancreas. Findings are concerning for acute pancreatitis. Correlation with laboratory values. 2. 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 Thank you for allowing us to participate in the care of your patient. FINDINGS: Bones/joints: Changes of left knee arthroplasty. No visualized fracture or dislocation. Soft tissues: Normal. IMPRESSION: No acute findings. Thank you for allowing us to participate in the care of your patient. Dictated and Authenticated by: Pelon Alvarenga MD 01/30/2025 5:50 AM Eastern Time ([place] & [place]) Quality:SDOH Health Related Social Needs: Health related social needs details lives independently confusion noted by daughter PFSH All Active Problems (Updated 01/30/25 @ 06:12 by Michael Durham DO) Back pain (Acute) Contusion of scalp (Acute) Fall (Acute) Primary hyperparathyroidism (Chronic ~2023) Pt declines surgery; [facility] [place] [place] AAA (abdominal aortic aneurysm) (Acute ~07/2024) Trigger thumb, right thumb (Acute) S/P Release: 06/14/2024 Ambulatory dysfunction (Acute) Corns and callosities (Acute) Pain in foot (Acute) Nail dystrophy (Acute) Onychomycosis (Acute) Pain in joint, foot, left (Acute) Chronic toe pain, left foot (Acute) B12 deficiency (Acute) Mitral regurgitation (Chronic ~2021) ECHO 09/2021 [facility] prescription benzodiazepine use (Chronic) Atherosclerosis of right carotid artery (Chronic ~2021) Medically managing--not a surgical candidate Subjective memory complaints (Acute ~06/2021) MoCA 25/30; executive difficulty Generalized anxiety disorder (Chronic) Abnormal echocardiogram (Acute ~05/2018) [place]28/[place] 1+/4+ mitral regurg; EF 56% Retinal dot hemorrhage of both eyes (Acute ~10/2019) 08/15/2019 Dr Aliza Eng Osteoporosis (Chronic) See 10/2018 CT T11 compression fracture 2017 DEXA osteopenia [id number]: Boniva x2, which she tolerated, thus switching to Reclast (better outcome data) Essential tremor (Chronic 04/02/08) R > L, EVAL UMSINTIA 2008; MOWCHUN [id number]; responds to low dose propranolol Hyperlipidemia (Chronic 08/17/11) Crestor switched to Atorvastatin per ins Generalized atherosclerosis (Chronic 08/17/11) H/O CABG 1993; Cath 11/2015: all three grafts open; EF 60%; JUANPABLO 02/2015 EF 55% Essential hypertension (Chronic 08/17/11) Diabetic neuropathy (Chronic 03/07/15) Dr Robbins DM type 2, controlled, with complication (Acute) complications: neuropathy, cardiovascular disease Chronic nonalcoholic liver disease (Chronic 08/17/11) Chronic kidney disease, stage III (moderate) (Acute 08/17/11) Presence of permanent cardiac pacemaker (Acute ~2015) Dual lead Medtronic pacemaker 09/05/2015; Her presenting rhythm is atrial pacing and underlying rhythm is sinus ASCVD (arteriosclerotic cardiovascular disease) (Chronic) cardiac cath Severe anxiety with panic (Chronic) L-T BZD Rx GERD (gastroesophageal reflux disease) (Chronic) Depression (Chronic) a. h/o ECT treatment x1 (per Liliana very effective) b. formerly followed by Chauncey Gracia NP c. On multiple medications d. h/o psychiatric hospitalizations for reported bipolar e. h/o suicide attempts [facility] current use of 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 (Chronic) Apixaban for AF Coronary artery disease (Chronic) a. inferior OR 1984 b. OR with CABG 1992 Patient is doing well with no chest pain. Continue on current medications. Medical History Hypercalcemia (~05/2023) primary hyperPTH Elevated parathyroid hormone (~2023) Drug overdose (~02/2024) lorazepam COVID (~06/2023) Gouty arthropathy, unspecified (08/17/11) Shingles Lumbar radiculopathy Hypokalemia Prolonged HI interval Hematoma Caregiver burden ; 02/2022 Atrial fibrillation s/p ablation 02/2016, again 11/30/[address] [facility] [place] 2020; Kefir & Psyllium husk help Trigger finger, right ring finger Trigger finger, left ring finger Trigger finger, left middle finger Fracture of rib of right side (08/26/15) Fracture of right shoulder (08/26/15) Unexplained weight loss GI work-up NEG; Mirtaz helped Chest pain Chronic pain Back; L-T Tramadol RX (which was discont 2018); h/o compression fractures Mid back pain compression fx Sleeping difficulty (07/01/15) Improved on Mirtaz Primary osteoarthritis of right knee (08/24/16) Frequent falls (04/05/17) Chronic atrial fibrillation (11/19/15) s/p Ablation 02/2016, again 11/30/24 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 [place] [facility]'s dual-chamber pacemaker is functioning normally with ample generator life remaining. She has had no further PAF episodes noted. Her presenting rhythm is atrial pacing and underlying rhythm is sinus bradycardia. No reprogramming needed. She does not use remote monitoring. Chronic fatigue syndrome Surgical History History of hysterectomy cardioversion (07/20/14) Dr Garcia, [facility] cardiac catheterization (11/27/14) 3 vessel disease, occluded, Grafts: mammary artery and 2 venous grafts are all open. 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 [employer] DUAL CHAMBER Extraction of cataract (11/11/15) L cataract Jayme R cataract-Dr Hutson Ablation for A Fib (03/10/16) Catheter ablatioin for A Flutter and catheter ablatiion for A Fib; [facility] [place] David King H/O surgical procedure a. left cataract surgery b. Duane fundoplication c. carpal tunnel syndrome d. bilateral tubal ligation e. hysterectomy f. arthroscopy left knee 09/2011 g. s/p breast reduction Family History Mother , perf ulcer at age 78. Hip fracture mother from complications of hip fracture Father , stroke at age 80. No problems noted. Sister No problems noted. Social History Smoking/Tobacco Use Status: Never Second Hand Exposure: No Smoking risk assessment performed?: Yes Alcohol Intake: never Drug use: Never Substance use type: does not use Adopted: No (raised by Aunt and Uncle) Caregiver/Support person: Yes (youngest daughter: Jacquelyn Chavira is healthcare agent ph:[phone]) Foster care: No Household members: spouse Housing: house Number of Children: 4 Current gender identity: female What is your relationship status?: Panel score (0-1 are the most socially isolated patients): 1 What type of physical activity do you participate in: additional Details: gardening, playing with dog Shasta/Orthodox: Mandaeism Seatbelt use: always Drive intox or ride w/intox road train driver: No Water heater temp set <120 deg: Yes Working smoke detector in home: Yes Fire extinguisher in home: Yes Carbon monox detector in home: Yes Firearms in home: Yes Do you feel safe at home: Yes Do you feel safe in your relationship?: Yes History History 5 Para Hx # Term Pregnancies 4 Multiple births Hx # Pregnancies Ectopic pregnancies AB induced Hx Number of Living Children AB spontaneous
--- NOTE | 2025-01-30 05:28 | DI.VRAD_ITS ---
PROCEDURE INFORMATION: Exam: CT Head Without Contrast Exam date and time: 01/30/2025 4:47 AM Age: 84 years old Clinical indication: Injury or trauma; Blunt trauma (contusions or hematomas); Consciousness not specified; Forehead; Injury date: 01/30/25; Injury details: Fall, hit head, on eliquis TECHNIQUE: Imaging protocol: Computed tomography of the head without contrast. Radiation optimization: All CT scans at this facility use at least one of these dose optimization techniques: automated exposure control; mA and/or kV adjustment per patient size (includes targeted exams where dose is matched to clinical indication); or iterative reconstruction. COMPARISON: CT HEAD CERVICAL SPINE WO 07/14/2024 3:55 AM FINDINGS: Brain: There is no evidence of acute brain infarct, mass, shift of midline or parenchymal hemorrhage. Patchy periventricular white matter low attenuation present, a nonspecific finding but likely related to chronic small vessel ischemic change. Cerebral ventricles: Moderate dilatation of the ventricular system and sulci diffusely, compatible with volume loss. Paranasal sinuses: Visualized sinuses are unremarkable. No fluid levels. Mastoid air cells: Visualized mastoid air cells are well aerated. Bones: Unremarkable. No acute fracture. Soft tissues: Right parietal scalp hematoma. Right forehead scalp hematoma IMPRESSION: No acute intracranial hemorrhage PROCEDURE INFORMATION: Exam: CT Maxillofacial Without Contrast Exam date and time: 01/30/2025 4:47 AM Age: 84 years old Clinical indication: Injury or trauma; Blunt trauma (contusions or hematomas); Consciousness not specified; Forehead; Injury date: 01/30/25; Injury details: Fall, hit head, on eliquis TECHNIQUE: Imaging protocol: Computed tomography of the face without contrast. Radiation optimization: All CT scans at this facility use at least one of these dose optimization techniques: automated exposure control; mA and/or kV adjustment per patient size (includes targeted exams where dose is matched to clinical indication); or iterative reconstruction. COMPARISON: CT HEAD CERVICAL SPINE WO 07/14/2024 3:55 AM FINDINGS: Paranasal sinuses: No air-fluid levels. Orbital cavities: Orbits are normal. Globes are unremarkable. Teeth: Patient nearly edentulous Bones: No acute fracture. Soft tissues: Unremarkable. IMPRESSION: No acute findings. PROCEDURE INFORMATION: Exam: CT Cervical Spine Without Contrast Exam date and time: 01/30/2025 4:47 AM Age: 84 years old Clinical indication: Injury or trauma; Blunt trauma (contusions or hematomas); Consciousness not specified; Forehead; Injury date: 01/30/25; Injury details: Fall, hit head, on eliquis TECHNIQUE: Imaging protocol: Computed tomography of the cervical spine without contrast. Radiation optimization: All CT scans at this facility use at least one of these dose optimization techniques: automated exposure control; mA and/or kV adjustment per patient size (includes targeted exams where dose is matched to clinical indication); or iterative reconstruction. COMPARISON: CT HEAD CERVICAL SPINE WO 07/14/2024 3:55 AM FINDINGS: Bones: Multilevel degenerative disc disease. No acute fracture. Lungs: Lung apices are normal. Soft tissues: Unremarkable. IMPRESSION: No acute fracture Dictated and Authenticated by: Bethany Irizarry MD. Orderin Marva Rodriguez MD
[2025-01-30 05:43] LABS: Abs Immature Grans 0.01 10^3/uL (0.0-0.06); HCT 39.9 % (36.0-46.0); HGB 13.2 g/dL (11.2-15.7); Immature Grans % 0.2 %; MCH 33.2 pg (27.0-33.0); MCHC 33.1 % (32.0-36.0); MCV 100 fL (80-95); MPV 9.0 fL (8.0-11.0); Platelet Count 118 10^3/uL (130-400); RBC 3.98 10^6/uL (3.93-5.22); RDW 12.2 % (11.7-14.6); RDW-SD 45.6 fL; WBC 4.63 10^3/uL (4.4-10.8)
--- NOTE | 2025-01-30 05:46 | DI.VRAD_ITS ---
PROCEDURE INFORMATION: Exam: CT Chest Without Contrast; Diagnostic Exam date and time: 01/30/2025 4:55 AM Age: 84 years old Clinical indication: Injury or trauma; Luq; Blunt trauma (contusions or hematomas); Injury date: 01/30/25; Injury details: Fall, pain in left ribs and back; Prior surgery; Surgery date: 6+ months; Surgery type: Pacemaker, hysterectomy TECHNIQUE: Imaging protocol: Diagnostic computed tomography of the chest without contrast. Radiation optimization: All CT scans at this facility use at least one of these dose optimization techniques: automated exposure control; mA and/or kV adjustment per patient size (includes targeted exams where dose is matched to clinical indication); or iterative reconstruction. COMPARISON: CT THORACIC LUMBAR SPINE WO 07/14/2024 3:57 AM FINDINGS: Lungs: Unremarkable. No consolidation. No masses. Pleural spaces: Unremarkable. No pneumothorax. No pleural effusion. Heart: Unremarkable. No cardiomegaly. No pericardial effusion. Coronary arteries: Coronary artery atherosclerosis is noted. Lymph nodes: Unremarkable. No enlarged lymph nodes. Vasculature: Thoracic aortic atherosclerotic plaque. Bones/joints: Median sternotomy wires. Persistent irregularity of the superior endplate of T11. No visualized acute fracture. Soft tissues: Unremarkable. IMPRESSION: No acute findings. PROCEDURE INFORMATION: Exam: CT Abdomen And Pelvis Without Contrast Exam date and time: 01/30/2025 4:55 AM Age: 84 years old Clinical indication: Injury or trauma; Luq; Blunt trauma (contusions or hematomas); Injury date: 01/30/25; Injury details: Fall, pain in left ribs and back; Prior surgery; Surgery date: 6+ months; Surgery type: Pacemaker, hysterectomy TECHNIQUE: Imaging protocol: Computed tomography of the abdomen and pelvis without contrast. Radiation optimization: All CT scans at this facility use at least one of these dose optimization techniques: automated exposure control; mA and/or kV adjustment per patient size (includes targeted exams where dose is matched to clinical indication); or iterative reconstruction. COMPARISON: CT ABDOMEN PELVIS WO/W 06/15/2019 3:09 PM FINDINGS: Liver: Normal. No mass. Gallbladder and biliary ducts: Normal. No calcified stones. No ductal dilation. Pancreas: There is mild fat stranding surrounding the head of the pancreas. Findings are concerning for acute pancreatitis. Correlation with laboratory values. Spleen: Normal. No splenomegaly. Adrenal glands: Normal. No mass. Kidneys and ureters: Atrophy of the superior and midportion of the right kidney. Stomach and bowel: Unremarkable. No obstruction. No mucosal thickening. Appendix: No evidence of appendicitis. Intraperitoneal space: Unremarkable. No free air. No significant fluid collection. Vasculature: Abdominal aortic atherosclerotic plaque. 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 Infrarenal abdominal aortic ectasia. Lymph nodes: Unremarkable. No enlarged lymph nodes. Urinary bladder: Unremarkable as visualized. Reproductive: Unremarkable as visualized. Bones/joints: Unremarkable. No acute fracture. Soft tissues: Tiny fat containing umbilical hernia. IMPRESSION: 1. There is mild fat stranding surrounding the head of the pancreas. Findings are concerning for acute pancreatitis. Correlation with laboratory values. 2. 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 Dictated and Authenticated by: Pelon Alvarenga MD. Orderin Marva Rodriguez MD
--- NOTE | 2025-01-30 05:50 | DI.VRAD_ITS ---
PROCEDURE INFORMATION: Exam: CT Thoracic Spine Without Contrast Exam date and time: 01/30/2025 4:55 AM Age: 84 years old Clinical indication: Low back pain; Pain in thoracic spine; Other: Unknown; Fall, back pain TECHNIQUE: Imaging protocol: Computed tomography of the thoracic spine without contrast. Radiation optimization: All CT scans at this facility use at least one of these dose optimization techniques: automated exposure control; mA and/or kV adjustment per patient size (includes targeted exams where dose is matched to clinical indication); or iterative reconstruction. COMPARISON: CT THORACIC LUMBAR SPINE WO 07/14/2024 3:57 AM FINDINGS: Bones/joints: Stable irregularity involving the superior endplate of T11. No evidence of acute fracture. Alignment is intact. No evidence of severe central canal stenosis. Soft tissues: Please refer to dedicated CT of the chest for description of the paraspinous soft tissues. IMPRESSION: No acute thoracic spine fracture. PROCEDURE INFORMATION: Exam: CT Lumbar Spine Without Contrast Exam date and time: 01/30/2025 4:55 AM Age: 84 years old Clinical indication: Low back pain; Pain in thoracic spine; Other: Unknown; Fall, back pain TECHNIQUE: Imaging protocol: Computed tomography of the lumbar spine without contrast. Radiation optimization: All CT scans at this facility use at least one of these dose optimization techniques: automated exposure control; mA and/or kV adjustment per patient size (includes targeted exams where dose is matched to clinical indication); or iterative reconstruction. COMPARISON: CT THORACIC LUMBAR SPINE WO 07/14/2024 3:57 AM FINDINGS: Bones/joints: No acute fracture. Normal alignment. No significant disc bulge or herniation. No severe spinal canal stenosis. No significant neural foraminal narrowing. Soft tissues: Please refer to dedicated CT of the abdomen and pelvis for description of the paraspinal structures. IMPRESSION: No acute lumbar spine fracture. Dictated and Authenticated by: Pelon Alvarenga MD. Orderin Marva Rodriguez MD
--- NOTE | 2025-01-30 05:51 | DI.VRAD_ITS ---
PROCEDURE INFORMATION: Exam: XR Left Knee Exam date and time: 01/30/2025 5:10 AM Age: 84 years old Clinical indication: Injury or trauma; Blunt trauma; Left; Injury date: 01/30/25; Injury details: Fall, L knee pain; Prior surgery; Surgery date: 6+ months; Surgery type: Replacement TECHNIQUE: Imaging protocol: Radiologic exam of the left knee. Views: 1 or 2 views. COMPARISON: US LOWER EXTREMITY VENOUS LT 11/14/2020 10:56 AM FINDINGS: Bones/joints: Changes of left knee arthroplasty. No visualized fracture or dislocation. Soft tissues: Normal. IMPRESSION: No acute findings. Dictated and Authenticated by: Pelon Alvarenga MD. Orderin Marva Rodriguez MD
[2025-01-30 06:09] LABS: ALT 37 U/L (14-59); AST 33 U/L (15-37); Albumin 4.1 g/dL (3.4-5.0); Alkaline Phosphatase 65 U/L (46-116); Anion Gap 7.4 mmol/L (3-11); BUN 20 mg/dL (7-18); Bilirubin, Total 0.4 mg/dL (0.2-1.0); CO2 30.6 mmol/L (21.0-32.0); Calcium 10.4 mg/dL (8.5-10.1); Chloride 104 mmol/L (98-107); Estimated GFR 63.83 (mL/min/1.73m2); Glucose 133 mg/dL (74-106); Potassium 3.8 mmol/L (3.5-5.1); Sodium 142 mmol/L (136-145); TSH (W/Ref FT4) 2.88 uIU/mL (0.36-3.74); Total Protein 8.7 g/dL (6.4-8.2)
[2025-01-30 06:18] LABS: Glucose Negative (Negative)
[2025-01-30 06:20] LABS: Lipase 44 U/L (<78)
[2025-01-30 06:25] LABS: C & S Indicated? No; WBC 0-2 HPF (0-5)
[2025-01-30] MEDS: Lidocaine 5% Patch 1 PATCH TP (06:32)
[2025-01-30] MEDS: Acetaminophen 500 MG TAB 1000 MG PO (06:32)
== END 2025-01-30 06:32 | disposition home or self-care (01) ==
PROVIDERS: Emergency Provider Student in an Organized Health Care Education/Training Program; PCP Nurse Practitioner Adult Health
DX: S00.03XA Contusion of scalp, initial encounter (principal); M54.50 Low back pain, unspecified; I25.10 Atherosclerotic heart disease of native coronary artery without angina pectoris; I25.2 Old myocardial infarction; E11.40 Type 2 diabetes mellitus with diabetic neuropathy, unspecified; E11.22 Type 2 diabetes mellitus with diabetic chronic kidney disease; I12.9 Hypertensive chronic kidney disease with stage 1 through stage 4 chronic kidney disease, or unspecified chronic kidney disease; N18.30 Chronic kidney disease, stage 3 unspecified; I48.20 Chronic atrial fibrillation, unspecified; E78.5 Hyperlipidemia, unspecified; Z95.1 Presence of aortocoronary bypass graft; Z95.0 Presence of cardiac pacemaker; Z79.01 Long term (current) use of anticoagulants; Z79.4 Long term (current) use of insulin; W18.39XA Other fall on same level, initial encounter; Y93.01 Activity, walking, marching and hiking; Y92.018 Other place in single-family (private) house as the place of occurrence of the external cause
CPT/HCPCS: 36415; 71250; 80053; 83690; 99285; 70450; 70486; 72125; 73560; 74176; 81003; 81015; 84443; 85025

== ENCOUNTER 2025-03-08 03:53 | Outpatient (RCR) | payer MEDICARE, BC, SELFPAY ==
[2025-03-08] MEDS: Normal Saline Flush 10 ML SYR IVP (11:11)
== END 2025-03-11 23:59 | disposition home or self-care (01) ==
LOC: INF 03:53
PROVIDERS: PCP Nurse Practitioner Adult Health; Visit Provider Nurse Practitioner Adult Health
DX: M81.0 Age-related osteoporosis without current pathological fracture (principal)
CPT/HCPCS: 96365; J3489

== ENCOUNTER 2025-04-07 12:16 | Outpatient (REF) | payer MEDICARE, BC, SELFPAY ==
[2025-04-07 14:19] LABS: ALT 27 U/L (14-59); AST 25 U/L (15-37); Albumin 3.7 g/dL (3.4-5.0); Alkaline Phosphatase 50 U/L (46-116); Anion Gap 9.8 mmol/L (3-11); BUN 22 mg/dL (7-18); Bilirubin, Total 0.3 mg/dL (0.2-1.0); CO2 27.2 mmol/L (21.0-32.0); Calcium 9.7 mg/dL (8.5-10.1); Calculated LDL 77 mg/dL (<100); Chloride 106 mmol/L (98-107); Cholesterol 150 mg/dL (<200); Estimated GFR 37.33 (mL/min/1.73m2); Glucose 122 mg/dL (74-106); HDL Cholesterol 56 mg/dL (>or=50); Magnesium 2.1 mg/dL (1.8-2.4); Potassium 4.7 mmol/L (3.5-5.1); Sodium 143 mmol/L (136-145); TSH (W/Ref FT4) 2.62 uIU/mL (0.36-3.74); Total Protein 6.9 g/dL (6.4-8.2); Triglyceride 85 mg/dL (<150); Vitamin B12 583 pg/mL (193-986); Vitamin D 25 Total 39 ng/mL (30-100)
== END 2025-04-07 12:17 | disposition home or self-care (01) ==
LOC: LBN 12:16
PROVIDERS: PCP Nurse Practitioner Adult Health; Visit Provider Nurse Practitioner Adult Health
DX: E21.0 Primary hyperparathyroidism (principal); E11.8 Type 2 diabetes mellitus with unspecified complications; E53.8 Deficiency of other specified B group vitamins; D35.1 Benign neoplasm of parathyroid gland
CPT/HCPCS: 80053; 80061; 82306; 82607; 83735; 83970; 84100; 84443

== ENCOUNTER 2025-04-25 00:16 | Outpatient (CLI) | payer MEDICARE, BC, SELFPAY ==
--- NOTE | 2025-04-25 08:56 | DI.RAD_ITS ---
Exam(s) XR KNEE RT 3V AP,LAT,SHOAIB EXAM: XR KNEE RT 3V AP,LAT,SHOAIB CLINICAL HISTORY: assess oa; ? subtle fx (h/o recurrent falls),rt medial knee pain,m25.561. TECHNIQUE: 2D digital imaging was performed. Three views. COMPARISON: CR,XR XR KNEE LT 2V AP,LAT from 01/30/2025 FINDINGS: BONES: No acute fracture is present. No bony destructive lesion is seen. JOINTS: Vcga-el-kpatgrdw narrowing of the medial femoral tibial joint space. Mild periarticular spurring. Mild varus angulation. Minimal spurring at the articular aspect of the patella. No joint effusion is seen. SOFT TISSUE: Vascular calcifications. IMPRESSION: Lant-ig-mgchawsd degenerative changes of the medial femoral tibial joint. DATA REPOSITORY: RADIATION DOSE DELIVERED:
== END 2025-04-25 00:36 ==
PROVIDERS: PCP Nurse Practitioner Adult Health; Visit Provider Nurse Practitioner Adult Health
DX: M25.561 Pain in right knee (principal); M17.11 Unilateral primary osteoarthritis, right knee
CPT/HCPCS: 73562

== ENCOUNTER → 2025-05-11 03:29 | Outpatient (CLI) | payer MEDICARE, BC, SELFPAY ==
--- NOTE | 2025-05-11 12:30 | DI.US_ITS ---
APPROVED REPORT EXAM: Comprehensive 2D, Doppler, and color-flow Echocardiogram Patient Location: Out-Patient Parcel Post Officer: Delmer Sadler RDCS (AE) Indications: CAD, pacemaker, chronic afib Other Information Study Quality: Adequate Conclusion Concentric left ventricular hypertrophy. Ejection fraction is 50 to 55%. There are no segmental wall motion abnormalities Grossly normal right ventricular size and function Moderately dilated left atrium. Normal right atrial size Lead noted in the right heart The aortic valve is sclerotic and trileaflet with mild regurgitation Mitral annular calcification. Mild mitral regurgitation Mild tricuspid regurgitation. Estimated right ventricular systolic pressure is 30 mmHg Mildly dilated ascending aorta Wall motion Left Ventricle The left ventricle is normal size. LV function is within the range of normal Moderate concentric left ventricular hypertrophy. No segmental wall motion abnormalities There is no ventricular septal defect visualized. LVEF is 50-55%. Right Ventricle The right ventricle is normal size. The right ventricular systolic function is normal. Pacemaker lead is present in the right ventricle. Atria Left atrium is moderately dilated. The right atrium size is normal. The interatrial septum is intact with no evidence for an atrial septal defect. Aortic Valve The aortic valve is sclerotic. Aortic valve is trileaflet. There is no aortic valvular stenosis. Mild aortic regurgitation. Mitral Valve Mild mitral annular calcification. No evidence of mitral valve stenosis. Mild mitral regurgitation. Tricuspid Valve The tricuspid valve is normal in structure. There is no tricuspid valve stenosis. Mild tricuspid regurgitation. The RVSP is 30 mmHg. Pulmonic Valve The pulmonary valve is normal in structure. There is no pulmonic valvular stenosis. Moderate pulmonic regurgitation. Great Vessels The aortic root is normal in size. The ascending aorta is mildly dilated. Aortic arch is normal in caliber. IVC is normal in size and collapses >50% with inspiration. Pericardium There is no pericardial effusion. 2D Dimensions IVSD d PLAX 1.67 cm F: 0.6-1.0 Ao Root d 2.85 cm F: 2.7 - 3.3 LVPW d PLAX 1.57 cm F: 0.6 - 1.0 Ao Asc Diam d 3.76 cm F: 2.3 - 3.1 LVID d PLAX 3.84 cm F: 3.8 - 5.2 LVDs 3.00 cm F: 2.2 - 3.5 LV EF Teichholz 45.2 % FS 22.05 % LV EDV (Teich) 63.7 mL LV ESV (Teich) 34.9 mL Stroke Vol Index (Teich) 18.33 M-Mode TAPSE 1.87 cm (M/F) >1.7 Auto EF LV EDV A4C 76.2 mL LV EDV A2C 79.4 mL LV EDV BP 78.1 mL LV ESV A4C 45.4 mL LV ESV A2C 47.5 mL LV ESV BP 46.8 mL LVEF(%) A4C 40.4 % LVEF(%) A2C 40.2 % LVEF(%) BP 40.0 % LV SV A4C 30.8 ml LV SV A2C 31.9 ml LV SV BP 31.3 ml LV CO A4C 1.8 L/min LV CO A2C 1.9 L/min LV CO BP 1.9 L/min HR A4C 59.88 BPM HR A2C 59.90 BPM LV EDV Index (BP) LA Volume LA Length A4C 5.5 cm LA Length A2C 5.4 cm LA Area A4C s 20.86 cm2 LA Area A2C s 15.02 cm2 LA Vol A4C A-L 67.71 mL LA Vol A2C A-L 35.25 mL LA Vol Biplane A-L 49.0 mL LA Vol/BSA A4C A-L LA Vol/BSA A2C A-L LA Vol/BSA BP A-L 31.2 mL/m2 LA Vol A4C MOD 63.7 mL LA Vol A2C MOD 34.0 mL LA Vol BP MOD 46.4 mL RA Volume RA Area A4C 10.8 cm2 RA ESV A4C (A-L) 21.9mL RA Vol/BSA A4C A-L RA Length A4C 4.6 cm RA ESV A4C (MOD) 21.3mL LV Diastology MV E' medial 0.055 (>0.07 m/s) MV E Vmax 0.62 (0.4-1.3 m/s) MV E/E' MED 11.23 (<14) MV A Vmax 0.40 (0.4-1.3 m/s) MV E' lateral 0.097 (>0.1 m/s) E/A Ratio 1.5 MV E/E' LAT 6.43 (<14) MV E' Average 0.076 m/s MV E/E'(average) 8.18 Aortic Valve AoV Vmax 1.68 m/s LVOT Vmax 0.72 m/s AoV Peak Grad 36.3 mmHg LVOT Peak Grad 2.1 mmHg AoV Area (Vmax) 1.22 cm2 LVOT VTI 0.148 m AoV VTI 0.381 m LVOT Mean Grad 1.3 mmHg AoV Mean Lei. 1.26 m/s LVOT SV 42.11 mL AoV Mean Grad 7.1 mmHg LVOT Diam s 1.90 cm AoV Area (VTI) 1.11 cm2 AV Regurg Peak Gr. 11.33 mmHg Velocity Ratio 0.43 AR Decel [place] 1.6m/sec2 AR DT 2514 msec AR PHT 729 msec AR Vmax 3.91 m/s Mitral Valve MV DT 208 (160-240 msec) Tricuspid Valve RA Pressure 3.00 mmHg TR Vmax 2.59 m/s TR Peak Grad 26.8 mmHg RVSP (TR) 29.8 mmHg
== END ==
LOC: DI 03:29
PROVIDERS: PCP Nurse Practitioner Adult Health; Visit Provider Registered Nurse
DX: I25.10 Atherosclerotic heart disease of native coronary artery without angina pectoris (principal); Z95.0 Presence of cardiac pacemaker; I34.0 Nonrheumatic mitral (valve) insufficiency
CPT/HCPCS: 93306

== ENCOUNTER 2025-05-18 10:55 | Outpatient (CLI) | payer MEDICARE, BC, SELFPAY ==
--- NOTE | 2025-05-18 11:00 | RT.EKG_ITS ---
APPROVED REPORT Exam: Resting ECG Reason for Exam: follow up needed Patient Location: O HR:73 bpm ECG Measurements Heart Rate 73 AXIS CA 67 P 0 QRSd 124 QRS 40 QT 381 T -87 QTc 420 Conclusion Atrial-paced complexes...other complexes also detected Probable left atrial enlargement...P >50mS, <-0.10mV V1 LVH with secondary repolarization abnormality...multi-LVH criteria, abnrm ST-T Inferior infarct, age indeterminate...Q>35mS, T neg, II III aVF
== END 2025-05-18 10:56 | disposition home or self-care (01) ==
LOC: DI.CARD 11:13
PROVIDERS: PCP Nurse Practitioner Adult Health; Referring Provider Nurse Practitioner Adult Health; Visit Provider Internal Medicine Cardiovascular Disease
DX: I71.40 Abdominal aortic aneurysm, without rupture, unspecified (principal); I51.7 Cardiomegaly
CPT/HCPCS: 93010

== ENCOUNTER → 2025-05-18 10:55 | Outpatient (BNVA) | payer MEDICARE, BC, SELFPAY | PROVIDERS: PCP Nurse Practitioner Adult Health; Referring Provider Nurse Practitioner Adult Health; Visit Provider Internal Medicine Cardiovascular Disease | DX: I25.10 Atherosclerotic heart disease of native coronary artery without angina pectoris (principal); I48.91 Unspecified atrial fibrillation; Z95.0 Presence of cardiac pacemaker; I71.40 Abdominal aortic aneurysm, without rupture, unspecified; Z79.01 Long term (current) use of anticoagulants | CPT/HCPCS: 99214; 93005 ==

== ENCOUNTER → 2025-05-21 15:06 | Outpatient (BNVA) | payer MEDICARE, BC, SELFPAY | PROVIDERS: PCP Nurse Practitioner Adult Health; Referring Provider Nurse Practitioner Adult Health; Visit Provider Physician Assistant | DX: M17.11 Unilateral primary osteoarthritis, right knee (principal) | CPT/HCPCS: 99213; 20610; J1010 ==

== ENCOUNTER 2025-06-04 21:19 | Outpatient (REF) | payer MEDICARE, BC, SELFPAY ==
[2025-06-04 22:10] LABS: Glucose Negative (Negative)
[2025-06-04 22:18] LABS: C & S Indicated? Yes; RBC 0-2 HPF (0-2); WBC >50 HPF (0-5)
== END 2025-06-04 21:20 | disposition home or self-care (01) ==
LOC: LBN 21:19
PROVIDERS: PCP Nurse Practitioner Adult Health; Visit Provider Nurse Practitioner Adult Health
DX: R50.9 Fever, unspecified (principal); M54.50 Low back pain, unspecified; R31.29 Other microscopic hematuria
CPT/HCPCS: 87077; 81003; 81015; 87086; 87186